=== PATIENT | female | born 1960 | race Caucasian/White ===

== ENCOUNTER 2016-09-08 08:35 | Emergency (ER) | payer OTHER ==
[~2016-09-08] VITALS: Ht 160 cm; Wt 80.0 kg
[2016-09-08 08:35] VITALS: Ht 160 cm; Wt 80.0 kg
[2016-09-08] MEDS ORDERED: HYDROmorphONE 1 MG/ML SYG IV STA (08:56)
[2016-09-08] MEDS ORDERED: ONDANSETRON 4 MG INJ IV STA (08:56)
[2016-09-08 09:11] LABS: ADD SCAN DIFF NO
[2016-09-08 09:19] LABS: BASOPHILS % 0.2 % (0.0-2.0); EOSINOPHILS % 0.1 % (0.0-7.0); HEMATOCRIT 39.3 % (37.0-47.0); HEMOGLOBIN 12.1 g/dl (12.0-16.0); LYMPHOCYTES # 0.8 10^3/ul (0.8-2.9); LYMPHOCYTES % 7.2 % (15.0-51.0); MEAN CORPUSCULAR HEMOGLOBIN 24.9 pg (29.0-33.0); MEAN CORPUSCULAR HGB CONC 30.8 g/dl (32.0-37.0); MEAN PLATELET VOLUME 11.6 fl (7.4-10.4); MONOCYTE # 0.8 10^3/ul (0.3-0.9); MONOCYTES % 7.1 % (0.0-11.0); NEUTROPHIL # 9.2 10^3/ul (1.6-7.5); NEUTROPHILS % 85.1 % (39.0-77.0); PLATELET COUNT 355 10^3/UL (140-415); RED BLOOD COUNT 4.85 10^6/ul (4.20-5.40); RED CELL DISTRIBUTION WIDTH 14.7 % (11.5-14.5); WHITE BLOOD COUNT 10.8 10^3/ul (4.8-10.8)
[2016-09-08 09:37] LABS: ANION GAP 17 (8-16); CALCIUM 9.7 mg/dl (8.4-10.2); CARBON DIOXIDE 22 mmol/L (21-31); CHLORIDE 108 mmol/L (97-110); GLUCOSE 96 mg/dl (70-220); POTASSIUM 4.2 mmol/L (3.5-5.1); SODIUM 143 mmol/L (135-144)
[2016-09-08] MEDS ORDERED: IOHEXOL 350MG/ML 50 ML BTL ONE (10:01)
[2016-09-08] MEDS ORDERED: SOD CHLORIDE 0.9% 100 ML ONE (10:01)
[2016-09-08] MEDS ORDERED: IOHEXOL 100 ML ONE (10:01)
[2016-09-08 10:02] LABS: BLOOD UREA NITROGEN 17 mg/dl (7-20)
[2016-09-08 10:03] LABS: TROPONIN-I < 0.012 ng/ml (0.00-0.12)
--- NOTE | 2016-09-08 10:28 | RADRPT ---
PROCEDURE: CTA Chest with contrast and with 3-D reconstructions CLINICAL INDICATION: SOB, painful inspiration, left chest pain TECHNIQUE: The study was performed utilizing multidetector CT scanner. Direct spiral axial section s were obtained from the thoracic inlet to the upper abdomen with the use of intravenous contrast ma terial. Sagittal, coronal and 3-D reformations were obtained. The images were reviewed on a PACS wor kstation. DLP 665.24 mGycm CTDIvol 28.17, 18.53 mGy COMPARISON: No prior studies are available for comparison. FINDINGS: There are no pulmonary emboli. There are no focal consolidations. There is mild pulmonary vascular congestion. There is no pleural fluid. There is no pneumothorax. Heart size is within normal limits. There is no pericardial fluid. The aorta is within normal limi ts. There are no enlarged axillary or mediastinal lymph nodes. There is cholelithiasis as well as mild upper abdominal ascites. Osseous and soft tissue structures are within normal limits. IMPRESSION: No CT evidence for pulmonary embolus. Mild pulmonary vascular congestion. RPTAT: EE Physician Pili Date Time Electronically viewed and signed by Physician Pili on 09/08/2016 10:28 RUTHY
[2016-09-08] MEDS ORDERED: HYDR-902 PO (12:16)
[2016-09-08] MEDS ORDERED: IBUP-1542 PO (12:16)
[2016-09-08] MEDS ORDERED: FUROSEMIDE 40 MG INJ IV ONE (12:30)
[2016-09-08 12:32] VITALS: BP 124/85; PULSE 91; RESP 20
--- NOTE | 2016-09-08 12:33 | ERD ---
ER Documentation Chief Complaint Date/Time DATE: 09/08/16 TIME: 12:28 Chief Complaint SHORTNESS OF BREATH; PAIN UPON INSPIRATION ON THE LEFT SIDE OF THE RIB AREA HPI This a 55-year-old female who is here complaining of some sudden sharp pain in her left posterior rib cage with some difficulty breathing. Patient says she was going up some stairs carrying a heavy backpack she felt a sudden pain in her left posterior rib cage just prior to arrival. No chest pain or syncope or dizziness or palpitations. The patient says the pain is sharp with inspiration and it is worse when she moves her trunk. She says she short of breath just because she cannot take a deep breath because it hurts to breathe in. She does not smoke and does not take any hormonal replacement therapy. No leg swelling or dyspnea on exertion or orthopnea. ROS All systems reviewed and are negative except as per history of present illness. Medications Home Meds Active Scripts Hydrocodone/Acetaminophen ([place] 10-325 Tablet) 1 Each Tablet, 1 TAB PO Q6H Y for PAIN, #20 TAB Prov:MANNYOSMERONSTJUDAHS A. DO 09/08/16 Ibuprofen* (Motrin*) 600 Mg Tab, 600 MG PO Q8, #30 TAB Prov:LEKKOS,APOSTOLOS A. DO 09/08/16 Allergies Allergies: Coded Allergies: No Known Allergy (Unverified , 09/08/16) PMhx/Soc History of Surgery: Yes (FOOT SX) Anesthesia Reaction: No Hx Neurological Disorder: No Hx Respiratory Disorders: No Hx Cardiac Disorders: No Hx Psychiatric Problems: No Hx Miscellaneous Medical Probl: Yes (GALLSTONES) Hx Alcohol Use: No Hx Substance Use: No Hx Tobacco Use: No Smoking Status: Former smoker FmHx Family History: No coronary disease Physical Exam Vitals Vital Signs Date Time Temp Pulse Resp B/P Pulse Ox O2 Delivery O2 Flow Rate FiO2 09/08/16 11:31 72 22 111/75 98 09/08/16 10:23 71 22 134/82 98 09/08/16 08:35 98.2 116 25 139/90 98 Physical Exam Const: Well-developed, well-nourished Head: Atraumatic, normocephalic Eyes: Normal Conjunctiva, PERRLA, EOMI, normal sclera, no nystagmus ENT: Normal External Ears, Nose and Mouth, moist mucus membranes. Neck: Full range of motion. No meningismus, no lymphadenopathy. Resp: Clear to auscultation bilaterally, no wheezing, rhonchi, rales Cardio: Regular rate and rhythm, no murmurs, S1 S2 present, there is 100 % reproducible pain in the left posterior rib cage around rib #9. This pain is reproducible to palpation and with twisting of the trunk Abd: Soft, non tender x 4, non distended. Normal bowel sounds, no guarding or rebound, no pulsitile abdominal masses or bruits Skin: No petechiae or rashes, no ecchymosis , no maculopapular rash Back: No midline or flank tenderness Ext: No cyanosis, or edema, FROM x 4, normal inspection, neurovascularly intact x 4 Neur: Awake and alert, STR 5/5 x 4, sensation intact x 4, no focal findings, cerebellum intact Psych: Normal Mood and Affect Result Diagram: 09/08/16 0900 09/08/16 0900 Results 24 hrs Laboratory Tests Test 09/08/16 09:00 White Blood Count 10.810^3/ul Red Blood Count 4.8510^6/ul Hemoglobin 12.1g/dl Hematocrit 39.3% Mean Corpuscular Volume 81.0fl Mean Corpuscular Hemoglobin 24.9pg Mean Corpuscular Hemoglobin Concent 30.8g/dl Red Cell Distribution Width 14.7% Platelet Count 48396^3/UL Mean Platelet Volume 11.6fl Neutrophils % 85.1% Lymphocytes % 7.2% Monocytes % 7.1% Eosinophils % 0.1% Basophils % 0.2% Nucleated Red Blood Cells % 0.0/100WBC Neutrophils # 9.210^3/ul Lymphocytes # 0.810^3/ul Monocytes # 0.810^3/ul Eosinophils # 0.010^3/ul Basophils # 0.010^3/ul Nucleated Red Blood Cells # 0.010^3/ul Sodium Level 143mmol/L Potassium Level 4.2mmol/L Chloride Level 108mmol/L Carbon Dioxide Level 22mmol/L Anion Gap 17 Blood Urea Nitrogen 17mg/dl Creatinine 0.60mg/dl Glucose Level 96mg/dl Calcium Level 9.7mg/dl Troponin I < 0.012ng/ml Current Medications Medications (Trade) Dose Ordered Sig/Jay Route PRN Reason Start Time Stop Time Status Last Admin Dose Admin Hydromorphone HCl (Dilaudid) 1 mg ONCE STAT IV 09/08/16 08:56 09/08/16 08:59 DC 09/08/16 09:10 Ondansetron HCl (Zofran Inj) 4 mg ONCE STAT IV 09/08/16 08:56 09/08/16 08:59 DC 09/08/16 09:10 IV Flush 10 ml 10 ml STK-MED ONCE .ROUTE 09/08/16 10:01 09/08/16 10:02 DC 09/08/16 10:28 Sodium Chloride 100 ml @ ud STK-MED ONCE .ROUTE 09/08/16 10:01 09/08/16 10:02 DC 09/08/16 10:29 Iohexol (Omnipaque) 100 ml @ ud STK-MED ONCE .ROUTE 09/08/16 10:01 09/08/16 10:02 DC 09/08/16 10:29 Iohexol (Omnipaque 350mg/ ml) 50 ml STK-MED ONCE .ROUTE 09/08/16 10:01 09/08/16 10:02 DC 09/08/16 10:31 Furosemide (Lasix) 40 mg ONCE ONCE IV 09/08/16 12:30 09/08/16 12:31 09/08/16 12:16 Procedures/MDM EKG: Rate/Rhythm: Normal Sinus Rhythm,NL intervals QRS, ST, QT: NORMAL [place], QRS, QT] Impression: NORMAL EKG PROCEDURE: CTA Chest with contrast and with 3-D reconstructions CLINICAL INDICATION: SOB, painful inspiration, left chest pain TECHNIQUE: The study was performed utilizing multidetector CT scanner. Direct spiral axial sections were obtained from the thoracic inlet to the upper abdomen with the use of intravenous contrast material. Sagittal, coronal and 3- D reformations were obtained. The images were reviewed on a PACS workstation. DLP 665.24 mGycm CTDIvol 28.17, 18.53 mGy COMPARISON: No prior studies are available for comparison. FINDINGS: There are no pulmonary emboli. There are no focal consolidations. There is mild pulmonary vascular congestion. There is no pleural fluid. There is no pneumothorax. Heart size is within normal limits. There is no pericardial fluid. The aorta is within normal limits. There are no enlarged axillary or mediastinal lymph nodes. There is cholelithiasis as well as mild upper abdominal ascites. Osseous and soft tissue structures are within normal limits. IMPRESSION: No CT evidence for pulmonary embolus. Mild pulmonary vascular congestion. RPTAT: EE Tigre Norris Physician Date Time Electronically viewed and signed by Tigre Norris Physician on 09/08/2016 10:28 RA/ CC: FRANKY WADE DO We will give patient IV Lasix for some slight fluid in the lungs. No evidence of PE. I feel her pain is clearly musculoskeletal in nature she was going up stairs carrying heavy backpack caused some rib displacement or rib strain. Will discharge with Motrin and hydrocodone. The patient will follow up with Dr. Pappas for heart workup for volume overload Departure Diagnosis: Primary Impression: Chest wall pain Additional Impression: CHF (congestive heart failure) Congestive heart failure type: unspecified congestive heart failure type Congestive heart failure chronicity: unspecified congestive heart failure chronicity Qualified Code: I50.9 - Congestive heart failure, unspecified congestive heart failure chronicity, unspecified congestive heart failure type Condition: Stable Patient Instructions: Chest Wall Strain Referrals: AJ PAPPAS APOSTOLOS A. DO Sep 08, 2016 12:32
== END 2016-09-08 12:33 | disposition home or self-care (01) ==
LOC: E/R 08:35
DX: R07.89 Other chest pain (principal); I50.9 Heart failure, unspecified; Z87.891 Personal history of nicotine dependence
CPT/HCPCS: 71275; 80048; 84484; 85025; 93005; J1170; J1940; J2405; Q9967; 36415; 96374; 96375

== ENCOUNTER 2016-11-02 09:01 | Emergency (ER) | payer OTHER ==
[~2016-11-02] VITALS: Ht 165.1 cm; Wt 78.9 kg
[~2016-11-02 09:01] MED LIST: HYDR-902 PO; IBUP-1542 PO
[2016-11-02 09:07] VITALS: Ht 165.1 cm; Wt 78.9 kg
[2016-11-02 09:48] LABS: BASOPHILS % 0.2 % (0.0-2.0); EOSINOPHILS # 0.1 10^3/ul (0.0-0.5); EOSINOPHILS % 1.1 % (0.0-7.0); HEMATOCRIT 37.7 % (37.0-47.0); HEMOGLOBIN 11.3 g/dl (12.0-16.0); LYMPHOCYTES % 12.5 % (15.0-51.0); MEAN CORPUSCULAR HEMOGLOBIN 23.8 pg (29.0-33.0); MEAN CORPUSCULAR VOLUME 79.4 fl (82.0-101.0); MEAN PLATELET VOLUME 11.5 fl (7.4-10.4); MONOCYTES % 12.1 % (0.0-11.0); NEUTROPHILS % 73.7 % (39.0-77.0); PLATELET COUNT 374 10^3/UL (140-415); RED BLOOD COUNT 4.75 10^6/ul (4.20-5.40); RED CELL DISTRIBUTION WIDTH 16.2 % (11.5-14.5); WHITE BLOOD COUNT 8.1 10^3/ul (4.8-10.8)
--- NOTE | 2016-11-02 09:59 | RADRPT ---
PROCEDURE: CT abdomen and pelvis without contrast. CLINICAL INDICATION: Abdominal Pain TECHNIQUE: CT scan of the abdomen and pelvis without contrast was performed and is reconstructed a t 2.5 mm contiguous axial intervals from the dome of the diaphragm to the inferior pubic rami.. The patient was scanned without intravenous contrast. Sagittal and coronal reformatted images were obt ained from the axial source images. The calculated radiation dose measures 950 mGy centimeters. The CTDI measures 16 mGy. COMPARISON: None. FINDINGS: The lung bases are clear of any infiltrate or mass. There is a small to moderate size left pleural effusion. The liver is of normal size, contour and attenuation with no mass or ductal dilatation. There are ga llstones. No splenic, adrenal or pancreatic abnormalities present. Kidneys are of normal size and contour. No hydronephrosis, calculus or masses seen. Ureters are o f normal course and caliber with no stone. No bladder mass or stone is present. There is a large irregular shaped mass arising out of the pelvis containing coarse calcifications. This most likely represents an enlarged uterus with fluid in the canal. Noted is a moderate volume o f ascites with extensive nodularity in the mesenteric fat highly suspicious for peritoneal carcinoma tosis. Findings likely represent evidence of metastatic uterine cancer. The ovaries are not clearl y seen. Ovarian cancer cannot be ruled out. There is no aneurysm. No adenopathy is present. No bowel mass or obstruction is present. The appendix is not clearly visualized, however, no infl stanislav appendix is noted. No pneumoperitoneum is visualized. The osseous structures are intact. IMPRESSION: Large irregular shaped thick-walled pelvic mass with calcifications and central fluid. Ascites with extensive omental caking. Rule out metastatic uterine cancer. Ovarian cancer cannot be ruled out. Cholelithiasis. Left pleural effusion. .Allan Buitrago MD, Date Time Electronically viewed and signed by .Allan Buitrago MD, on 11/02/2016 09:59 .A/
[2016-11-02 10:04] LABS: UR RBC > 182 /HPF (0-5); UR WBC CLUMPS MANY /HPF (NONE SEEN)
[2016-11-02 10:13] LABS: ALBUMIN 4.1 g/dl (3.3-4.9); ALBUMIN/GLOBULIN RATIO 1.13; BILIRUBIN,INDIRECT 0.1 mg/dl (0-1.1); BILIRUBIN,TOTAL 0.1 mg/dl (0.2-1.3); CALCIUM 9.7 mg/dl (8.4-10.2); CREATININE 0.79 mg/dl (0.44-1.00); POTASSIUM 4.9 mmol/L (3.5-5.1); TOTAL PROTEIN 7.7 g/dl (6.1-8.1)
--- NOTE | 2016-11-02 10:33 | ERD ---
ER Documentation Chief Complaint Date/Time DATE: 11/02/16 TIME: 10:28 Chief Complaint dysuria x 2 days HPI This is a 56-year-old female that presents to the ER complaining of constipation over the last few months. Patient states that she struggles to have a bowel movement and she has been taking stool softeners however they have not worked. Patient's last bowel movement was this morning. Patient is also complaining of generalized abdominal pain and she states she is not always able to urinate. Patient states that she has to push very hard to urinate and that it lerner when she urinates. She denies any nausea or vomiting. Denies any diarrhea. Patient denies any hematuria, melena. She denies any fevers or chills. Patient has never had a colonoscopy and does not regularly see a primary care doctor. Patient's son also states that patient has intermittent shortness of breath, however she does not have any shortness of breath at this time she denies any chest pain. She does not have any cough or cold symptoms. ROS 12 point review of systems was done, all negative except per HPI. Medications Home Meds No Active Prescriptions or Reported Meds Allergies Allergies: Coded Allergies: No Known Allergy (Unverified , 11/02/16) PMhx/Soc History of Surgery: Yes (FOOT SX) Anesthesia Reaction: No Hx Neurological Disorder: No Hx Respiratory Disorders: No Hx Cardiac Disorders: No Hx Psychiatric Problems: No Hx Miscellaneous Medical Probl: Yes (GALLSTONES) Hx Alcohol Use: No Hx Substance Use: No Hx Tobacco Use: No Smoking Status: Never smoker Physical Exam Vitals Physical Exam GENERAL: The patient is well developed and appropriate for usual state of health , in no apparent distress. HEENT: Atraumatic. CHEST: Clear to auscultation bilaterally. There are no rales, wheezes or rhonchi. HEART: Regular rate and rhythm. No murmurs, clicks, rubs or gallops. ABDOMEN: Soft, nondistended, tender to palpation in all quadrants. Good bowel sounds. No rebound or guarding. No gross peritonitis. No gross organomegaly or masses. No Preciado sign or McBurney point tenderness. BACK: No midline or flank tenderness. NEURO: Alert and oriented. Results 24 hrs Laboratory Tests Test 11/02/16 09:34 White Blood Count 8.110^3/ul Red Blood Count 4.7510^6/ul Hemoglobin 11.3g/dl Hematocrit 37.7% Mean Corpuscular Volume 79.4fl Mean Corpuscular Hemoglobin 23.8pg Mean Corpuscular Hemoglobin Concent 30.0g/dl Red Cell Distribution Width 16.2% Platelet Count 30821^3/UL Mean Platelet Volume 11.5fl Neutrophils % 73.7% Lymphocytes % 12.5% Monocytes % 12.1% Eosinophils % 1.1% Basophils % 0.2% Nucleated Red Blood Cells % 0.0/100WBC Neutrophils # 6.010^3/ul Lymphocytes # 1.010^3/ul Monocytes # 1.010^3/ul Eosinophils # 0.110^3/ul Basophils # 0.010^3/ul Nucleated Red Blood Cells # 0.010^3/ul Urine Color RED Urine Clarity CLOUDY Urine pH 6.0 Urine Specific [place] 1.027 Urine Ketones TRACEmg/dL Urine Nitrite NEGATIVEmg/dL Urine Bilirubin NEGATIVEmg/dL Urine Urobilinogen NEGATIVEmg/dL Urine Leukocyte Esterase 2+Gillian/ul Urine Microscopic RBC > 182/HPF Urine Microscopic WBC > 182/HPF Urine Squamous Epithelial Cells /HPF Urine Calcium Oxalate Crystals FEW/HPF Urine Mucus /HPF Urine Hemoglobin 3+mg/dL Urine Glucose 1+mg/dL Urine Total Protein 3+mg/dl Sodium Level 146mmol/L Potassium Level 4.9mmol/L Chloride Level 102mmol/L Carbon Dioxide Level 27mmol/L Anion Gap 22 Blood Urea Nitrogen 14mg/dl Creatinine 0.79mg/dl Glucose Level 88mg/dl Calcium Level 9.7mg/dl Total Bilirubin 0.1mg/dl Direct Bilirubin 0.00mg/dl Indirect Bilirubin 0.1mg/dl Aspartate Amino Transf (AST/SGOT) 55IU/L Alanine Aminotransferase (ALT/SGPT) 96IU/L Alkaline Phosphatase 92IU/L Total Protein 7.7g/dl Albumin 4.1g/dl Globulin 3.60g/dl Albumin/Globulin Ratio 1.13 Lipase 26U/L [place] [id number] Radiology Main Line: [phone] DIAGNOSTIC IMAGING REPORT Patient: LUISANA JOVEL : 1960 Age: 56 Sex: F MR #: [id number] DOS: 11/02/16 0922 Ordering MD: LUISANA DENNEY PA-C Location: [facility] Room/Bed: PROCEDURE: CT abdomen and pelvis without contrast. CLINICAL INDICATION: Abdominal Pain TECHNIQUE: CT scan of the abdomen and pelvis without contrast was performed and is reconstructed at 2.5 mm contiguous axial intervals from the dome of the diaphragm to the inferior pubic rami.. The patient was scanned without intravenous contrast. Sagittal and coronal reformatted images were obtained from the axial source images. The calculated radiation dose measures 950 mGy centimeters. The CTDI measures 16 mGy. COMPARISON: None. FINDINGS: The lung bases are clear of any infiltrate or mass. There is a small to moderate size left pleural effusion. The liver is of normal size, contour and attenuation with no mass or ductal dilatation. There are gallstones. No splenic, adrenal or pancreatic abnormalities present. Kidneys are of normal size and contour. No hydronephrosis, calculus or masses seen. Ureters are of normal course and caliber with no stone. No bladder mass or stone is present. There is a large irregular shaped mass arising out of the pelvis containing coarse calcifications. This most likely represents an enlarged uterus with fluid in the canal. Noted is a moderate volume of ascites with extensive nodularity in the mesenteric fat highly suspicious for peritoneal carcinomatosis. Findings likely represent evidence of metastatic uterine cancer. The ovaries are not clearly seen. Ovarian cancer cannot be ruled out. There is no aneurysm. No adenopathy is present. No bowel mass or obstruction is present. The appendix is not clearly visualized, however, no inflamed appendix is noted. No pneumoperitoneum is visualized. The osseous structures are intact. IMPRESSION: Large irregular shaped thick-walled pelvic mass with calcifications and central fluid. Ascites with extensive omental caking. Rule out metastatic uterine cancer. Ovarian cancer cannot be ruled out. Cholelithiasis. Left pleural effusion. .Allan Buitrago MD, MD Date Time Electronically viewed and signed by .Allan Buitrago MD, MD on 11/02/2016 09: 59 .A/ CC: LUISANA DENNEY Procedures/MDM This is a 56-year-old female presents to the ER stating that she has had constipation and urinary retention and dysuria over the last few months. Patient also complaining of generalized abdominal pain. Patient was found to have a new mass on CT scan and would benefit from admission. Patient will be transferred to another hospital for further management and care. Departure Diagnosis: Primary Impression: Pelvic mass Condition: Stable LUISANA DENNEY Nov 02, 2016 10:32 .A/ CC: LUISANA DENNEY Procedures/MDM This is a 56-year-old female presents to the ER stating that she has had constipation and urinary retention and dysuria over the last few months. Patient also complaining of generalized abdominal pain. Departure Diagnosis: Primary Impression: Pelvic mass Condition: LUISANA Rodriguez Nov 02, 2016 10:32
--- NOTE | 2016-11-02 11:56 | RADRPT ---
PROCEDURE: US Pelvis. CLINICAL INDICATION: Pelvic pain. Pelvic mass. TECHNIQUE: Multiple sonographic images of the pelvis were obtained utilizing a transabdominal and endovaginal technique. The images were reviewed on a PACS workstation. COMPARISON: CT of the abdomen and pelvis from 11/02/2016 FINDINGS: Exam is limited in technique. The uterus is visualized and measures 11.7 x 6.5 x 7.7 cm in size. Th e uterus is enlarged and heterogeneous in echogenicity. The cystic structure is seen in the uterus measuring 3.2 x 2.6 feet and 0.4 cm in size. The endometrial echo complex is not well visualized. Th ere is no evidence for free fluid. The right ovary is not well visualized. The left ovary has a nor mal echotexture and measures 3.8 x 2.6 x 2.9 cm. No adnexal masses are noted. IMPRESSION: 1. Limited examination secondary to technique. 2. Enlarged and heterogeneous uterus. Consider further evaluation with an MRI of the pelvis as cli nically warranted. 3. Right ovary not visualized. RPTAT: HPNM Physician Rufino Date Time Electronically viewed and signed by Physician Rufino on 11/02/2016 11:56 /
[2016-11-02 12:22] LABS: ADD UMIC YES; UR ASCORBIC ACID NEGATIVE (NEGATIVE); UR BILIRUBIN (Dip) NEGATIVE (NEGATIVE); UR BLOOD (Dip) 3+ mg/dL (NEGATIVE); UR CLARITY CLOUDY (CLEAR); UR COLOR RED (YELLOW); UR GLUCOSE (Dip) 1+ mg/dL (NEGATIVE); UR KETONES (Dip) TRACE mg/dL (NEGATIVE); UR LEUKOCYTE ESTERASE (Dip) 2+ Leu/ul (NEGATIVE); UR NITRITE (Dip) NEGATIVE (NEGATIVE); UR SPECIFIC GRAVITY (Dip) 1.027 (1.003-1.030); UR TOTAL PROTEIN (Dip) 3+ mg/dl (NEGATIVE); UR UROBILINOGEN (Dip) NEGATIVE (NEGATIVE)
[2016-11-02 14:00] VITALS: BP 128/77; RESP 18; TEMP 98.9
[2016-11-02 14:17] VITALS: PULSE 98
== END 2016-11-02 14:42 | disposition short-term general hospital (02) ==
LOC: FTE 09:01
DX: R19.07 Generalized intra-abdominal and pelvic swelling, mass and lump (principal); R10.2 Pelvic and perineal pain
CPT/HCPCS: 36415; 74176; 76830; 76856; 80053; 81001; 83690; 85025

== ENCOUNTER 2017-01-22 11:05 | Inpatient (IN) | payer OTHER ==
[~2017-01-22] VITALS: Ht 160 cm; Wt 66.2 kg
[2017-01-22] MEDS ORDERED: SODIUM CHLORIDE 0.9% 1L BAG IV* STA (11:57)
[2017-01-22] MEDS ORDERED: ONDANSETRON 4 MG INJ IV STA ×2 (11:57→17:42)
[2017-01-22] MEDS ORDERED: morphine 4 MG/ML VIAL IV STA (11:57)
--- NOTE | 2017-01-22 12:06 | ERD ---
ER Documentation Chief Complaint Chief Complaint SOB HAS HX OF OVARIAN CA AND HAS MULTI COMPLAINTS HPI This is a 56-year-old female with an unfortunate history of recent diagnosis of likely metastatic ovarian CA. No initiation of chemo or radiation therapy. Diagnosis was made 2 months ago. She presents with multiple complaints that includes chest pain that is pressure-like and nonradiating but constant, abdominal pain with associated nonbloody nonbilious emesis and difficulty urinating. She denies any fevers or chills, no pleuritic pain. She describes the discomfort diffusely is approximately 5 out of 10. ROS All systems reviewed and are negative except as per history of present illness. Medications Home Meds No Active Prescriptions or Reported Meds Allergies Allergies: Coded Allergies: No Known Allergy (Unverified , 11/02/16) PMhx/Soc History of Surgery: Yes (FOOT SX) Anesthesia Reaction: No Hx Neurological Disorder: No Hx Respiratory Disorders: No Hx Cardiac Disorders: No Hx Psychiatric Problems: No Hx Miscellaneous Medical Probl: Yes (GALLSTONES) Hx Alcohol Use: No Hx Substance Use: No Hx Tobacco Use: No FmHx Family History: No diabetes Physical Exam Vitals Vital Signs Date Time Temp Pulse Resp B/P Pulse Ox O2 Delivery O2 Flow Rate FiO2 01/22/17 13:32 98.6 107 18 132/81 98 Nasal Cannula 3.0 01/22/17 12:00 Nasal Cannula 3 01/22/17 11:10 97.2 120 18 145/69 97 Physical Exam General: Ill-appearing and malnourished with anasarca Head: Normocephalic, atraumatic. Eyes: Pupils equally reactive, EOM intact ENT: Dry mucous membranes Neck: Supple, no lymphadenopathy Respiratory: Lungs clear bilaterally, no distress Cardiovascular: RRR, no murmurs, rubs, or gallops Abdominal: Protuberant and firm, no peritonitis : Deferred MSK: No edema, no unilateral swelling, 5/5 strength Neurologic: Alert and oriented, moving all extremities, normal speech, no focal weakness, no cerebellar signs Skin: No rash Psych: Normal mood Result Diagram: 01/22/17 1215 01/22/17 1215 Results 24 hrs Laboratory Tests Test 01/22/17 12:15 White Blood Count 11.510^3/ul Red Blood Count 4.4010^6/ul Hemoglobin 10.3g/dl Hematocrit 34.2% Mean Corpuscular Volume 77.7fl Mean Corpuscular Hemoglobin 23.4pg Mean Corpuscular Hemoglobin Concent 30.1g/dl Red Cell Distribution Width 17.6% Platelet Count 03108^3/UL Mean Platelet Volume 11.1fl Neutrophils % 89.2% Lymphocytes % 4.9% Monocytes % 5.1% Eosinophils % 0.1% Basophils % 0.2% Nucleated Red Blood Cells % 0.0/100WBC Neutrophils # 10.210^3/ul Lymphocytes # 0.610^3/ul Monocytes # 0.610^3/ul Eosinophils # 0.010^3/ul Basophils # 0.010^3/ul Nucleated Red Blood Cells # 0.010^3/ul Urine Color YELLOW Urine Clarity SLIGHTLY CLOUDY Urine pH 6.0 Urine Specific [place] 1.020 Urine Ketones TRACEmg/dL Urine Nitrite NEGATIVEmg/dL Urine Bilirubin NEGATIVEmg/dL Urine Urobilinogen NEGATIVEmg/dL Urine Leukocyte Esterase 1+Gillian/ul Urine Microscopic RBC 3/HPF Urine Microscopic WBC 53/HPF Urine Bacteria FEW/HPF Urine Mucus FEW/HPF Urine Hemoglobin NEGATIVEmg/dL Urine Glucose NEGATIVEmg/dL Urine Total Protein NEGATIVEmg/dl Sodium Level 145mmol/L Potassium Level 4.8mmol/L Chloride Level 106mmol/L Carbon Dioxide Level 24mmol/L Anion Gap 20 Blood Urea Nitrogen 18mg/dl Creatinine 0.73mg/dl Glucose Level 98mg/dl Lactic Acid Level 1.6mmol/L Calcium Level 9.9mg/dl Total Bilirubin 0.2mg/dl Direct Bilirubin 0.00mg/dl Indirect Bilirubin 0.2mg/dl Aspartate Amino Transf (AST/SGOT) 42IU/L Alanine Aminotransferase (ALT/SGPT) 34IU/L Alkaline Phosphatase 103IU/L Troponin I < 0.012ng/ml Total Protein 8.5g/dl Albumin 4.2g/dl Globulin 4.30g/dl Albumin/Globulin Ratio 0.97 Current Medications Medications (Trade) Dose Ordered Sig/Jay Route PRN Reason Start Time Stop Time Status Last Admin Dose Admin Sodium Chloride (NS) 2,140 ml BOLUS OVER 2 HOURS STAT IV* 01/22/17 11:57 01/22/17 11:59 DC 01/22/17 12:34 Morphine Sulfate (morphine) 4 mg ONCE STAT IV 01/22/17 11:57 01/22/17 11:59 DC 01/22/17 12:34 Ondansetron HCl (Zofran Inj) 4 mg ONCE STAT IV 01/22/17 11:57 01/22/17 11:59 DC 01/22/17 12:34 Hydromorphone HCl 1 mg 1 mg ONCE STAT IV 01/22/17 12:37 01/22/17 12:38 DC 01/22/17 12:55 Ceftriaxone Sodium (Rocephin) 50 ml @ 100 mls/hr ONCE ONCE IVPB 01/22/17 14:00 01/22/17 14:29 Hydromorphone HCl (Dilaudid) 1 mg ONCE STAT IV 01/22/17 13:54 01/22/17 13:55 DC Procedures/MDM EKG, MONITORS, & DIAGNOSTIC IMAGING: EKG: I reviewed and interpreted a 12-lead EKG. Rhythm: Normal sinus rhythm Ectopy: None Intervals: No abnormalities ST segments: No elevations or depressions T waves: No contiguous inversions Chest x-ray: I reviewed and interpreted a 1 view of the chest Mediastinum: No enlargement Cardiac silhouette: No cardiomegaly Airspace: Clear lung raya bilaterally without evidence of pneumothorax Bones: No evidence of fracture CTPA: Pending CT abdomen and pelvis: Pending LAB INTERPRETATION: No significant leukocytosis is noted., Mild anemia of 10.3, platelets of 509, normal lactic acid, negative troponin urinalysis concerning for UTI MEDICAL DECISION MAKING: This patient has clear evidence of metastatic ovarian CVA. Her multiple complaints including chest pain and abdominal pain. Differential would include pulmonary embolism, diffuse metastatic or worsening process, bowel obstruction among others. Given her complex medical presentation a broad workup including CT PA and CT of the abdomen and pelvis is indicated. She will benefit from fluid resuscitation and pain control. She will certainly require hospitalization. This is concerning for end-stage malignancy, palliative and hospice care consultations may be appropriate as well. ER COURSE: The patient has evidence of urinary tract infection. Blood cultures taken, 30 cc/kg bolus of saline provided. Ceftriaxone provided. Only 1 out of 4 Sirs criteria is met in the emergency department therefore patient does not meet criteria for sepsis at this time. The patient CT chest and abdomen and pelvis are pending at this time. The patient's pain is being controlled with multiple doses of Dilaudid. Her heart rate is improving. She is hemodynamically stable. She will require hospitalization given multitude of complaints and issues including chest pain. The patient CT imaging is pending at the time of signout. She was endorsed to Dr. Dockery to follow-up on imaging. The admitting team was also advised of pending imaging studies and will follow. I kept the patient and/or family informed of laboratory and diagnostic imaging results throughout the emergency room course. DISPOSITION PLAN: Telemetry admission for management of chest pain CONSULTATION: Accepting care team and consultations: I discussed the current laboratory data, diagnostic imaging and emergency care provided. Admitting team: Dr. Randhawa Admitting team indication: Insurance directed Departure Diagnosis: Primary Impression: Primary cancer of ovary with widespread metastatic disease Laterality: unspecified laterality Qualified Code: C56.9 - Primary malignant neoplasm of ovary with widespread metastatic disease, unspecified laterality Additional Impressions: Chest pain Chest pain type: unspecified Qualified Code: R07.9 - Chest pain, unspecified type Shortness of breath Generalized abdominal pain Urinary tract infection Urinary tract infection type: acute cystitis Hematuria presence: without hematuria Qualified Code: N30.00 - Acute cystitis without hematuria Condition: YULIYA Chapman MD Jan 22, 2017 12:06
[2017-01-22] MEDS ORDERED: HYDROmorphONE 1 MG/ML SYG IV STA ×3 (12:37→17:42)
--- NOTE | 2017-01-22 12:48 | RADRPT ---
PROCEDURE: Chest x-ray CLINICAL INDICATION: Shortness of breath TECHNIQUE: Chest single view COMPARISON: None FINDINGS: The heart is normal in size. The pulmonary vessels are normal in caliber. The lungs are clear. Th e costophrenic angles are sharp. The visualized bony thorax is unremarkable. IMPRESSION: No acute cardiopulmonary disease. RPTAT: HH .Adilson Mike MD, Date Time Electronically viewed and signed by .Adilson Mike MD, MD on 01/22/2017 12:48 .W/
[2017-01-22 12:58] LABS: ABNORMAL IP MESSAGE 1; BASOPHILS % 0.2 % (0.0-2.0); EOSINOPHILS % 0.1 % (0.0-7.0); HEMATOCRIT 34.2 % (37.0-47.0); HEMOGLOBIN 10.3 g/dl (12.0-16.0); LYMPHOCYTES # 0.6 10^3/ul (0.8-2.9); LYMPHOCYTES % 4.9 % (15.0-51.0); MEAN CORPUSCULAR HEMOGLOBIN 23.4 pg (29.0-33.0); MEAN CORPUSCULAR HGB CONC 30.1 g/dl (32.0-37.0); MEAN CORPUSCULAR VOLUME 77.7 fl (82.0-101.0); MEAN PLATELET VOLUME 11.1 fl (7.4-10.4); MONOCYTE # 0.6 10^3/ul (0.3-0.9); MONOCYTES % 5.1 % (0.0-11.0); NEUTROPHIL # 10.2 10^3/ul (1.6-7.5); NEUTROPHILS % 89.2 % (39.0-77.0); PLATELET COUNT 509 10^3/UL (140-415); RED CELL DISTRIBUTION WIDTH 17.6 % (11.5-14.5); WHITE BLOOD COUNT 11.5 10^3/ul (4.8-10.8)
[2017-01-22 12:59] LABS: POSITIVE DIFF @See below
[2017-01-22 13:12] LABS: ADD UMIC YES; UR ASCORBIC ACID NEGATIVE (NEGATIVE); UR BACTERIA FEW /HPF (NONE SEEN); UR BILIRUBIN (Dip) NEGATIVE (NEGATIVE); UR BLOOD (Dip) NEGATIVE (NEGATIVE); UR CLARITY SLIGHTLY CLOUDY (CLEAR); UR COLOR YELLOW (YELLOW); UR GLUCOSE (Dip) NEGATIVE (NEGATIVE); UR KETONES (Dip) TRACE mg/dL (NEGATIVE); UR LEUKOCYTE ESTERASE (Dip) 1+ Leu/ul (NEGATIVE); UR MUCUS FEW /HPF (NONE SEEN); UR NITRITE (Dip) NEGATIVE (NEGATIVE); UR RBC 3 /HPF (0-5); UR TOTAL PROTEIN (Dip) NEGATIVE (NEGATIVE); UR UROBILINOGEN (Dip) NEGATIVE (NEGATIVE)
[2017-01-22 13:27] LABS: ALANINE AMINOTRANSFERASE 34 IU/L (13-69); ALBUMIN 4.2 g/dl (3.3-4.9); ALBUMIN/GLOBULIN RATIO 0.97; ALKALINE PHOSPHATASE 103 IU/L (42-121); ANION GAP 20 (8-16); ASPARTATE AMINO TRANSFERASE 42 IU/L (15-46); BILIRUBIN,INDIRECT 0.2 mg/dl (0-1.1); BILIRUBIN,TOTAL 0.2 mg/dl (0.2-1.3); BLOOD UREA NITROGEN 18 mg/dl (7-20); CALCIUM 9.9 mg/dl (8.4-10.2); CARBON DIOXIDE 24 mmol/L (21-31); CHLORIDE 106 mmol/L (97-110); CREATININE 0.73 mg/dl (0.44-1.00); GLUCOSE 98 mg/dl (70-220); POTASSIUM 4.8 mmol/L (3.5-5.1); SODIUM 145 mmol/L (135-144); TOTAL PROTEIN 8.5 g/dl (6.1-8.1)
[2017-01-22 13:39] LABS: TROPONIN-I < 0.012 ng/ml (0.00-0.12)
[2017-01-22] MEDS ORDERED: CEFTRIAXONE 1 GM/50 ML (PMX) 50 ML IVPB ONE (14:00)
[2017-01-22 14:11] LABS: INR 0.86; PROTIME 11.7 Sec (12.2-14.2); PT RATIO 0.9
[2017-01-22 14:12] LABS: PARTIAL THROMBOPLASTIN TIME 24.3 Sec (25.0-35.0)
[2017-01-22] MEDS ORDERED: ACETAMINOPHEN 325 MG TAB PO PRN (14:30)
[2017-01-22] MEDS ORDERED: ONDANSETRON 4 MG INJ IV PRN ×2 (14:30→16:00)
[2017-01-22] MEDS ORDERED: IOHEXOL 100 ML ONE (14:41)
[2017-01-22] MEDS ORDERED: SOD CHLORIDE 0.9% 100 ML ONE (14:41)
[2017-01-22] MEDS ORDERED: IOHEXOL 350MG/ML 50 ML BTL ONE (14:41)
--- NOTE | 2017-01-22 15:23 | RADRPT ---
PROCEDURE: CTA Chest with contrast and with 3-D reconstructions CLINICAL INDICATION: Pulmonary embolism, chest pain, shortness of breath, sepsis TECHNIQUE: The study was performed utilizing multidetector CT scanner. Direct spiral axial section s were obtained from the thoracic inlet to the upper abdomen with the use of intravenous contrast ma terial (115 cc of Omnipaque 350). Sagittal, coronal and 3-D reformations were obtained. The images w ere reviewed on a PACS workstation. DLP 1442.79 mGycm CTDIvol 2.82, 16.90, 16.13, 13.84 mGy One or more of the following dose reduction techniques were used: - Automated exposure control. - Adjustment of the mA and/or kV according to patient size. - Use of iterative reconstruction technique. COMPARISON: CT abdomen/pelvis from the same date FINDINGS: There are no pulmonary emboli. There is moderate pulmonary vascular congestion. There is mild left pleural effusion. There is no p neumothorax. Heart size is within normal limits. There is no pericardial fluid. The aorta is within normal limi ts. There are no enlarged axillary or mediastinal lymph nodes. Large volume ascites is identified in the visualized upper abdomen as well as prominent peritoneal t hickening, cholelithiasis, and partially visualized at least moderate right hydronephrosis. Osseous and soft tissue structures are within normal limits. IMPRESSION: No CT evidence for pulmonary embolus. Moderate pulmonary vascular congestion with a small left pleural effusion. Large volume ascites in the visualized upper abdomen as well as cholelithiasis, peroneal thickening, and at least moderate right hydronephrosis. These are better characterized on the CT abdomen/pelvis study from the same date. Please see the report for that study for additional findings. RPTAT: EE Physician Pili Date Time Electronically viewed and signed by Physician Pili on 01/22/2017 15:23 /
--- NOTE | 2017-01-22 15:48 | HP ---
Date/Time of Note Date/Time of Note DATE: 01/22/17 TIME: 15:44 Assessment/Plan VTE Prophylaxis VTE Prophylaxis Intervention: SCD's Assessment/Plan Assessment/Plan 56 yo F with known stage 4 ovarian Ca here with abd pain from ascites which are most likely malignant in origin PLAN paracentesis ordered, along with cytology pain control if feeling well in AM, can consider discharging and letting pt f/u with Dr Donis though pt meets SIRS criteria (WBCs minimally elevated, is tachycardic), I suspect this most likely is the cause of her systemic inflammatory response therefore I am not inclined to continue abx FULL CODE (affirmed with patient and son) of note, personally dw pt's oncologist Dr Donis regarding this admission HPI/ROS Admit Date/Time Admit Date/Time Hx of Present Illness CC abd pain HPI 56 yo F with known stage 4 ovarian ca with omental mets here with abd pain. Pt diagnosed with ovarian Ca just a few mos ago. Has seen an oncologist (Dr Donis in [place]) but has not yet had biopsy/tissue diagnosis made to start therapy. Pt has had ascites since her diagnosis, last week Dr Donis was in the process of trying to set patient up for diagnostic and therapeutic para but that has not yet occurred. Eventually the abd pain from the ascites became so great that pt and her son presented to the ER. Pt also reports constipation. PMH/Family/Social Past Medical History stage 4 ovarian Ca Social History Smoking Status: Former smoker Exam/Review of Systems Vital Signs Vitals Vital Signs Date Time Temp Pulse Resp B/P Pulse Ox O2 Delivery O2 Flow Rate FiO2 01/22/17 14:50 Nasal Cannula 2.0 01/22/17 13:32 98.6 107 18 132/81 98 Exam Exam +temporal wasting EOMI MMM +tachy, no mrg lungs clear +large ascities no rashes no edema labs reviewed, WBCs minimally elevated. no PE. +ascites Labs Result Diagram: 01/22/17 1215 01/22/17 1215 DAYANARA BROWN MD Jan 22, 2017 15:48
[2017-01-22] MEDS ORDERED: NACL 0.9% 3 ML SYG IV SCH (16:00)
[2017-01-22] MEDS ORDERED: DOCUSATE SODIUM 100 MG CAP PO PRN (16:00)
[2017-01-22] MEDS ORDERED: ONDANSETRON 4 MG TAB PO PRN (16:00)
--- NOTE | 2017-01-22 16:15 | RADRPT ---
AMENDMENT: 01/22/2017 4:16:36 PM Lucas Echols MD PROCEDURE: CT Abdomen and Pelvis with Contrast CLINICAL INDICATION: Back and flank pain, possible sepsis TECHNIQUE: Transaxial images were obtained through the abdomen and pelvis on a multi-slice scanner following the intravenous administration of contrast. Oral contrast had previously been given. Sagi ttal and coronal re-formations were subsequently reconstructed. One or more of the following dose reduction techniques were used: - Automated exposure control. - Adjustment of the mA and/or kV according to patient size. - Use of iterative reconstruction technique. Radiation dose: CTDIvol = 30.74 mGy; DLP = 188.79 mGy-cm. COMPARISON: 11/02/2016 FINDINGS: Lung bases: There is again a moderate-sized gravitating left pleural fluid accumulation at measures 12 HU. Discoid atelectasis is again seen at the posterior sulci. Liver: The liver remains normal in size. There is been interval development of a subcapsular fluid c ollection measuring 4.5 x 3.6 x 3.1 cm located at the inferior medial tip of the cough on lobe that measures 36 HU. The liver appears diffusely fatty infiltrated. Gallbladder: The gallbladder wall remains quite edematous and a 2 cm gallstone is evident. Bile ducts: The intra and extrahepatic bile ducts are normal in caliber. Pancreas: Appears normal with no mass or inflammation evident. Spleen: Normal in size with no focal lesion. Adrenals: Normal with no mass identified. Kidneys, ureters and bladder: A 6 mm cyst is seen at the lateral mid pole right kidney. A 3 mm cyst is seen at the superior pole. There is moderately severe right hydronephrosis and hydroureter seen t o the pelvis. No ureterolith is evident. On the left, there is mild pelvocaliectasis without uretera l dilatation evident. The bladder is quite distended with urine. Reproductive organs: There is a large heterogeneous mass located posterior to the bladder containing cystic areas as well as clusters of calcification and segments of bowel air appear represent colon. This measures approximate 20 cm in cranial caudad dimension and approximately 15 x 9 cm in maximum cross diameter. Stomach, bowel, and mesentery: The stomach appears unremarkable. The bowel is centralized secondary to a large amount of free intraperitoneal fluid. There is omental caking suspicious for carcinomatos is. Appendix: The vermiform appendix is not discretely identified. Peritoneum: There is a large amount of free intraperitoneal fluid that measures 25 HU suspicious for a malignant fluid. Aorta: Normal in caliber with no aneurysmal dilatation. IVC: Unremarkable. Lymph nodes: No pathologically enlarged nodes are identified. Osseous structures: The osseous elements appear intact. IMPRESSION: 1. When compared to the previous study of 11/02/2016, there is again a large conglomerate pelvic ma ss inseparable from the uterus, sigmoid colon and rectum containing clumps of calcification suspicio us for calcified fibroids and containing cystic areas. Ovarian and less likely uterine neoplasm kathryn ot be excluded. 2. Large amount of free intraperitoneal fluid measuring 25 HU with caking of the omentum compatible with carcinomatosis. This may be ovarian in etiology. 3. Centralization of bowel without evidence of bowel obstruction. 4. Moderately severe right hydronephrosis and hydroureter to the level of the pelvic mass. There is moderate left pelvocaliectasis without ureteral dilatation. The bladder is quite distended with uri ne. 5. Interval development of a 4.5 x 3.6 x 3.1 cm subcapsular hypodensity within the inferior medial posterior segment of the right lobe of the liver which measures 36 HU. This could represent necrotic tumor or possibly abscess. The liver is fatty infiltrated. 6. Gallbladder wall edema and suspicion of a 2 cm gallstone which could be confirmed sonographicall y. No bile duct dilatation is evident. 7. Persistent moderate gravitating left pleural fluid accumulation with discoid atelectasis seen in the posterior sulci. Physician Dorothy Date Time Electronically viewed and signed by Physician Dorothy on 01/22/2017 16:18 /
[2017-01-22] MEDS ORDERED: ASPIRIN 81 MG TAB PO ONE (16:30)
[2017-01-22] MEDS ORDERED: LIDOCAINE 1% (MPF) 5 ML VIAL ONE (17:21)
--- NOTE | 2017-01-22 17:49 | RADRPT ---
PROCEDURE: US renal. CLINICAL INDICATION: Hydronephrosis. TECHNIQUE: Acuna scale and color Doppler imaging of the kidneys and bladder. COMPARISON: CT dated 01/22/2017. FINDINGS: Right kidney: 10.4 cm in length. Normal in echogenicity. Severe hydronephrosis with no nephrolithia sis or renal mass. Left kidney: 12.0 cm in length. Normal in echogenicity. No nephrolithiasis, hydronephrosis, or iman l mass. Bladder: Distended and unremarkable. Other findings: Large, heterogeneous mass posterior to the urinary bladder with trace ascites. The s pleen is at the upper limits of normal in size measuring 13.4 cm in length. IMPRESSION: 1. Severe right-sided hydronephrosis, not significantly changed from the recent CT scan. No left-si ded hydronephrosis. 2. Large, heterogeneous mass posterior to the urinary bladder. Correlate with recent CT scan result s. 3. Borderline splenomegaly. 4. Trace ascites. RPTAT: HLBP .Elton Pantoja MD, MD Date Time Electronically viewed and signed by .Elton Pantoja MD, MD on 01/22/2017 17:48 .P/
--- NOTE | 2017-01-22 18:13 | RADRPT ---
PROCEDURE: US guided paracentesis CLINICAL INDICATION: Ascites TECHNIQUE: Multiple sonographic images were obtained through the patient's abdomen. A site in the patient's RIGHT lower abdomen was selected and marked. The area was prepped and draped in the usual sterile fashion. 1% lidocaine was utilized. A 19-gauge Yueh needle was advanced into the peritonea l space and the introducer was connected to a vacuum drainage bottle. A total of 4000 cc of bloody fluid were drained at the end of the procedure. The patient tolerated the procedure well. The specim en was sent for laboratory evaluation. COMPARISON: None FINDINGS: Ascites. RPTAT: AA IMPRESSION: Successful paracentesis. .Artemio Estes MD, MD Date Time Electronically viewed and signed by .Artemio Estes MD, MD on 01/22/2017 18:13 .S/
[2017-01-22 19:32] VITALS: TEMP 100.7
[2017-01-22] MEDS: ACETAMINOPHEN 325 MG TAB PO PRN (19:39)
[2017-01-22 19:59] LABS: FLD CLARITY BLOODY; FLD COLOR RED; FLD RBC 257 /uL; FLD WBC 1995 /cmm
[2017-01-22 20:00] LABS: FLD MN% 95.2 %; FLD PMN% 4.8 %
[2017-01-22 20:01] LABS: PATH REVIEW? YES-PATH TO CONFIRM
[2017-01-22 20:55] VITALS: PULSE 135
[2017-01-22 21:01] VITALS: Ht 160 cm; Wt 66.2 kg
[2017-01-22] MEDS ORDERED: METOPROLOL 5 MG INJ IV ONE (22:30)
[2017-01-23] VITALS (11 sets, daily range): BP systolic 89–115; BP diastolic 50–99; PULSE 101–116; RESP 16–18
[2017-01-23 08:52] LABS: ABNORMAL IP MESSAGE 1; HEMOGLOBIN 8.3 g/dl (12.0-16.0); MEAN CORPUSCULAR HGB CONC 29.6 g/dl (32.0-37.0); MEAN CORPUSCULAR VOLUME 77.6 fl (82.0-101.0); MEAN PLATELET VOLUME 11.8 fl (7.4-10.4); PLATELET COUNT 369 10^3/UL (140-415); RED BLOOD COUNT 3.61 10^6/ul (4.20-5.40); RED CELL DISTRIBUTION WIDTH 18.3 % (11.5-14.5)
[2017-01-23] MEDS: ENOXAPARIN 40 MG/0.4 ML SYG SC SCH (08:56)
[2017-01-23] MEDS: morphine 2 MG INJ IV PRN ×3 (08:57→23:57)
[2017-01-23 09:02] LABS: POSITIVE DIFF @See below
[2017-01-23 09:56] LABS: ANISOCYTOSIS 1+ (0-0); BASOPHILS % (M) 1 % (0-2); HYPOCHROMASIA 1+ (0-0); MICROCYTOSIS 1+ (0-0); MONOCYTES % (M) 3 % (0-11); PLATELET ESTIMATE NORMAL; POLYCHROMASIA 3+ (0-0)
[2017-01-23] MEDS: HYDROCODONE/APAP (5/325) TAB PO PRN (12:04)
--- NOTE | 2017-01-23 13:36 | PN ---
Date/Time of Note Date/Time of Note DATE: 01/23/17 TIME: 13:34 Assessment/Plan VTE Prophylaxis VTE Prophylaxis Intervention: SCD's Lines/Catheters IV Catheter Type (from Nrsg): Saline Lock Urinary Cath still in place: Yes Reason Cath still needed: urinary retention Assessment/Plan Assessment/Plan 56 yo F with known stage 4 ovarian Ca here with abd pain from ascites which are most likely malignant in origin sp para 10.19 PLAN await para path pain control urine culture results noted, await sensies. pt without c/o dysuria cs for stent eval given hydro on imaging FULL CODE (affirmed with patient and son) pt's oncologist Dr Donis in [place] aware of this admission Subjective 24 Hr Interval Summary Free Text/Dictation 4L out in para yesterday. Pt reports abd pain much better Exam/Review of Systems Vital Signs Vitals Vital Signs Date Time Temp Pulse Resp B/P Pulse Ox O2 Delivery O2 Flow Rate FiO2 01/23/17 12:19 98.0 97 18 97/57 97 01/22/17 21:22 Nasal Cannula 3.0 Intake and Output 01/22/17 01/22/17 01/23/17 15:00 23:00 07:00 Intake Total 50 ml 2140 ml 350 ml Output Total 1700 ml Balance 50 ml 2140 ml -1350 ml Exam nad, looks more comfortable abd much smaller +sen in place no edema no rashes fluid cytology pending Results Result Diagram: 01/23/17 0727 01/22/17 1215 Results 24 hrs Laboratory Tests Test 01/22/17 13:54 01/22/17 16:50 01/22/17 18:20 01/23/17 07:27 Lactic Acid Level 1.0 1.2 Pathologist Review (Hematology) YES-PATH TO CONFIRM Body Fluid Type ASCITES Body Fluid Volume 1000.0 Body Fluid Color RED Body Fluid Appearance BLOODY Body Fluid WBC 1995 Body Fluid RBC (Auto) 257 Body Fluid Polynuclear WBCs (%) 4.8 Body Fluid Mononuclear Cells % Auto 95.2 Body Fluid Other Cells Body Fluid Total Protein 6.5 White Blood Count 25.0 #H Red Blood Count 3.61 L Hemoglobin 8.3 L Hematocrit 28.0 L Mean Corpuscular Volume 77.6 L Mean Corpuscular Hemoglobin 23.0 L Mean Corpuscular Hemoglobin Concent 29.6 L Red Cell Distribution Width 18.3 H Platelet Count 369 # Mean Platelet Volume 11.8 H Neutrophils % Segmented Neutrophils % (Manual) 74 Band Neutrophils % (Manual) 20 H Lymphocytes % Lymphocytes % (Manual) 2 L Monocytes % Monocytes % (Manual) 3 Eosinophils % Basophils % Basophils % (Manual) 1 Nucleated Red Blood Cells % 0.0 Neutrophils # Neutrophils # (Manual) 19.8 H Band Neutrophils # 5.0 H Absolute Lymphocytes (Manual) 0.5 L Lymphocytes # Monocytes # Absolute Monocytes (Manual) 0.7 Eosinophils # Basophils # Basophils # (Manual) 0.2 H Nucleated Red Blood Cells # Platelet Estimate NORMAL Polychromasia 3+ Hypochromasia 1+ Anisocytosis 1+ Microcytosis 1+ Medications Medications Current Medications Ondansetron HCl (Zofran Tab) 4 mg Q6H PRN PO NAUSEA AND/OR VOMITING; Start at 16:00 Ondansetron HCl (Zofran Inj) 4 mg Q6H PRN IV NAUSEA AND/OR VOMITING; Start at 16:00 Acetaminophen (Tylenol Tab) 650 mg Q6H PRN PO PAIN LEVEL 1-3 OR FEVER Last administered on 01/22/17 19:39; Admin Dose 650 MG; Start 01/22/17 at 16:00 Acetaminophen/ Hydrocodone Bitart ([place] (5/325)) 1 tab Q6H PRN PO MODERATE PAIN LEVEL 4-6 Last administered on 01/23/17 12:04; Admin Dose 1 TAB; Start 01/22/17 at 16:00 Docusate Sodium (Colace) 100 mg Q12H PRN PO CONSTIPATION; Start 01/22/17 at 16 :00 Magnesium Hydroxide (Milk Of Mag) 30 ml DAILY PRN PO CONSTIPATION; Start 01/22 at 16:00 Bisacodyl (Dulcolax) 5 mg DAILY PRN PO CONSTIPATION; Start 01/22/17 at 16:00 Enoxaparin Sodium (Lovenox) 40 mg DAILY SC Last administered on 01/23/17 08: 56; Admin Dose 40 MG; Start 01/23/17 at 09:00 Morphine Sulfate (morphine) 2 mg Q4H PRN IV pain Last administered on 08:57; Admin Dose 2 MG; Start 01/22/17 at 16:00 DAYANARA BROWN MD Jan 23, 2017 13:36
[2017-01-23 16:51] LABS: FLD TYPE ASCITES
--- NOTE | 2017-01-23 19:21 | CONS ---
Date/Time of Note Date/Time of Note DATE: 01/23/17 TIME: 19:02 Assessment/Plan Assessment/Plan Chief Complaint/Hosp Course 56-year-old female with stage IV ovarian cancer presented to the hospital with abdominal pain. CT scan of the abdomen and pelvis showed bilateral hydronephrosis more severe on the right side. The patient underwent paracentesis and 4 L were drained and sent for cytology. I did explain to the patient the finding of the hydronephrosis and the treatment for that which will be insertion of JJ stents. I explained to her that the stents are inserted to help the kidney draining and that the need to be changed every 3 months which basically means trip to the hospital and anesthesia. If the stents are not exchanged they become dirty and sometimes they get calcified and they become a problem themselves. Also because of the urinary retention that she had she may need to have an indwelling Cullen catheter and that raises the risk of infection and even pyelonephritis. I also informed the patient should I see any mass inside the bladder from invasion of the tumor into the bladder I could do a biopsy for diagnostic purposes. The patient did understand all of that and she understood the gravity of her disease and she is agreeable to proceed. Problems: Consultation Date/Type/Reason Admit Date/Time Date of Consultation: Jan 23, 2017 Type of Consultation: Urology Reason for Consultation Bilateral hydronephrosis secondary to possible ovarian cancer and pelvic mass Referring Provider: DAYANARA BROWN MD Hx of Present Illness 56 yo F with known stage 4 ovarian ca with omental mets here with abd pain. Pt suspected to have ovarian Ca just a few months ago. Has seen an oncologist (Dr Donis in [place]) but has not yet had biopsy/tissue diagnosis made to start therapy. Pt has had ascites since her diagnosis, last week Dr Donis was in the process of trying to set patient up for diagnostic and therapeutic paracenthesis but that has not yet occurred. The patient presented to the hospital with abdominal pain. She underwent a CT scan of the abdomen and pelvis and that showed severe right hydronephrosis with the right ureter dilated down to the pelvic mass where it is encased by the tumor. Also she does have moderate left hydronephrosis. Therefore a urological consultation was requested Constitutional: poor po Eyes: no complaints ENT: no complaints Respiratory: shortness of breath Cardiovascular: chest pain Gastrointestinal: constipation, other (Large abdomen), pain Genitourinary: No bleeding, No hematuria Musculoskeletal: no complaints Neurologic: no complaints Endocrine: no complaints Past Surgical History Past Surgical Hx: other (Surgery on her leg from a fractured bone) Family History Significant Family History: no pertinent family hx Social History Alcohol Use: occasionally Smoking Status: Former smoker Exam/Review of Systems Vital Signs Vitals Vital Signs Date Time Temp Pulse Resp B/P Pulse Ox O2 Delivery O2 Flow Rate FiO2 01/23/17 16:49 98.0 73 18 101/58 98 01/22/17 21:22 Nasal Cannula 3.0 Intake and Output 01/22/17 01/22/17 01/23/17 15:00 23:00 07:00 Intake Total 50 ml 2140 ml 350 ml Output Total 1700 ml Balance 50 ml 2140 ml -1350 ml Exam Constitutional: alert, oriented Head: normocephalic Eyes: nl conjunctiva ENMT: nl external ears & nose Neck: supple Respiratory: normal air movement Cardiovascular: No edema Gastrointestinal: ascites, distended, firm, mass (Mostly lower abdomen), tender Genitourinary - Female: other (Has an indwelling Cullen catheter, pelvic exam: mass is felt behind the bladder) Musculoskeletal: muscle weakness Extremities: No calf tenderness Skin: nl turgor Results Result Diagram: 01/23/17 0727 01/22/17 1215 Results 24 hrs Laboratory Tests Test 01/23/17 07:27 White Blood Count 25.0 #H Red Blood Count 3.61 L Hemoglobin 8.3 L Hematocrit 28.0 L Mean Corpuscular Volume 77.6 L Mean Corpuscular Hemoglobin 23.0 L Mean Corpuscular Hemoglobin Concent 29.6 L Red Cell Distribution Width 18.3 H Platelet Count 369 # Mean Platelet Volume 11.8 H Neutrophils % Segmented Neutrophils % (Manual) 74 Band Neutrophils % (Manual) 20 H Lymphocytes % Lymphocytes % (Manual) 2 L Monocytes % Monocytes % (Manual) 3 Eosinophils % Basophils % Basophils % (Manual) 1 Nucleated Red Blood Cells % 0.0 Neutrophils # Neutrophils # (Manual) 19.8 H Band Neutrophils # 5.0 H Absolute Lymphocytes (Manual) 0.5 L Lymphocytes # Monocytes # Absolute Monocytes (Manual) 0.7 Eosinophils # Basophils # Basophils # (Manual) 0.2 H Nucleated Red Blood Cells # Platelet Estimate NORMAL Polychromasia 3+ Hypochromasia 1+ Anisocytosis 1+ Microcytosis 1+ Imaging Free Text/Dictation CT scan of the abdomen and pelvis: 1. When compared to the previous study of 11/02/2016, there is again a large conglomerate pelvic mass inseparable from the uterus, sigmoid colon and rectum containing clumps of calcification suspicious for calcified fibroids and containing cystic areas. Ovarian and less likely uterine neoplasm cannot be excluded. 2. Large amount of free intraperitoneal fluid measuring 25 HU with caking of the omentum compatible with carcinomatosis. This may be ovarian in etiology. 3. Centralization of bowel without evidence of bowel obstruction. 4. Moderately severe right hydronephrosis and hydroureter to the level of the pelvic mass. There is moderate left pelvocaliectasis without ureteral dilatation. The bladder is quite distended with urine. 5. Interval development of a 4.5 x 3.6 x 3.1 cm subcapsular hypodensity within the inferior medial posterior segment of the right lobe of the liver which measures 36 HU. This could represent necrotic tumor or possibly abscess. The liver is fatty infiltrated. 6. Gallbladder wall edema and suspicion of a 2 cm gallstone which could be confirmed sonographically. No bile duct dilatation is evident. 7. Persistent moderate gravitating left pleural fluid accumulation with discoid atelectasis seen in the posterior sulci. CTA Chest with contrast : No CT evidence for pulmonary embolus. Moderate pulmonary vascular congestion with a small left pleural effusion. Large volume ascites in the visualized upper abdomen as well as cholelithiasis, peroneal thickening, and at least moderate right hydronephrosis. These are better characterized on the CT abdomen/pelvis study from the same date PROCEDURE: US guided paracentesis CLINICAL INDICATION: Ascites TECHNIQUE: Multiple sonographic images were obtained through the patient's abdomen. A site in the patient's RIGHT lower abdomen was selected and marked. The area was prepped and draped in the usual sterile fashion. 1% lidocaine was utilized. A 19-gauge Yueh needle was advanced into the peritoneal space and the introducer was connected to a vacuum drainage bottle. A total of 4000 cc of bloody fluid were drained at the end of the procedure. The patient tolerated the procedure well. The specimen was sent for laboratory evaluation. COMPARISON: None FINDINGS: Ascites. RPTAT: AA IMPRESSION: Successful paracentesis. Patient underwent paracentesis Medications Medications Current Medications Ondansetron HCl (Zofran Tab) 4 mg Q6H PRN PO NAUSEA AND/OR VOMITING; Start at 16:00 Ondansetron HCl (Zofran Inj) 4 mg Q6H PRN IV NAUSEA AND/OR VOMITING; Start at 16:00 Acetaminophen (Tylenol Tab) 650 mg Q6H PRN PO PAIN LEVEL 1-3 OR FEVER Last administered on 01/22/17 19:39; Admin Dose 650 MG; Start 01/22/17 at 16:00 Acetaminophen/ Hydrocodone Bitart ([place] (5/325)) 1 tab Q6H PRN PO MODERATE PAIN LEVEL 4-6 Last administered on 01/23/17 12:04; Admin Dose 1 TAB; Start 01/22/17 at 16:00 Docusate Sodium (Colace) 100 mg Q12H PRN PO CONSTIPATION; Start 01/22/17 at 16 :00 Magnesium Hydroxide (Milk Of Mag) 30 ml DAILY PRN PO CONSTIPATION; Start 01/22 at 16:00 Bisacodyl (Dulcolax) 5 mg DAILY PRN PO CONSTIPATION; Start 01/22/17 at 16:00 Enoxaparin Sodium (Lovenox) 40 mg DAILY SC Last administered on 01/23/17 08: 56; Admin Dose 40 MG; Start 01/23/17 at 09:00 Morphine Sulfate (morphine) 2 mg Q4H PRN IV pain Last administered on 19:00; Admin Dose 2 MG; Start 01/22/17 at 16:00 EMILIE ALBERT MD Jan 23, 2017 19:13
[2017-01-23] MEDS: MAGNESIUM HYDROXIDE 30ML CUP PO PRN (23:57)
[2017-01-24] VITALS (24 sets, daily range): BP systolic 103–148; BP diastolic 56–84; PULSE 87–110; RESP 15–22
[2017-01-24] MEDS: morphine 2 MG INJ IV PRN ×2 (04:22→10:47)
[2017-01-24] MEDS: BISACODYL (EC) 5 MG TAB PO PRN (05:07)
[2017-01-24] MEDS: HYDROCODONE/APAP (5/325) TAB PO PRN (05:07)
--- NOTE | 2017-01-24 07:26 | HPN ---
Date/Time of Note Date/Time of Note DATE: 01/24/17 TIME: 07:26 Interval H&P Admission Note Pt. seen H&P reviewed: No system changes EMILIE ALBERT MD Jan 24, 2017 07:26
[2017-01-24] MEDS: ENOXAPARIN 40 MG/0.4 ML SYG SC SCH (09:00)
[2017-01-24] MEDS ORDERED: PROPOFOL 20 ML ONE (11:36)
[2017-01-24] MEDS ORDERED: CEFAZOLIN 1 GM INJ ONE (11:36)
[2017-01-24] MEDS ORDERED: NEOSTIGMINE 3 MG/3 ML SYRINGE ONE (11:36)
[2017-01-24] MEDS ORDERED: ROCURONIUM 50 MG INJ ONE (11:36)
[2017-01-24] MEDS ORDERED: GLYCOPYRROLATE 0.4 MG INJ ONE (11:36)
[2017-01-24] MEDS ORDERED: FENTAnyl 50 MCG/ML VIAL ONE ×2 (11:39→12:34)
[2017-01-24] MEDS ORDERED: DEXAMETHASONE 4 MG/ML 1 ML INJ ONE (11:39)
[2017-01-24] MEDS ORDERED: MIDAZOLAM 1 MG/ML 2 ML INJ ONE (11:39)
[2017-01-24] MEDS ORDERED: ONDANSETRON 4 MG INJ ONE (11:39)
[2017-01-24] MEDS ORDERED: FENTAnyl 50 MCG/ML VIAL IV PRN ×3 (12:00)
[2017-01-24] MEDS ORDERED: MEPERIDINE 25 MG INJ IV PRN (12:00)
[2017-01-24] MEDS ORDERED: DIPHENHYDRAMINE 50 MG INJ IV PRN (12:00)
[2017-01-24] MEDS ORDERED: ONDANSETRON 4 MG INJ IV PRN (12:00)
[2017-01-24] MEDS ORDERED: MIDAZOLAM 1 MG/ML 2 ML INJ IV PRN (12:00)
[2017-01-24] MEDS ORDERED: LABETALOL HCL 20MG INJ IV PRN (12:00)
[2017-01-24] MEDS ORDERED: IPRATROPIUM (NEB) 0.5 MG/2.5 ML AMP HHN PRN (12:00)
[2017-01-24] MEDS ORDERED: OXYCODONE/ACETAMINOPHEN (5/325) TAB PO PRN ×2 (12:00)
[2017-01-24] MEDS ORDERED: hydrALAzine 20 MG INJ IV PRN (12:00)
[2017-01-24] MEDS ORDERED: ALBUTEROL 0.083% (NEB) 2.5 MG/3 ML AMP HHN PRN (12:00)
[2017-01-24] MEDS ORDERED: HYDROmorphONE (0.2 MG/ML) 10ML SYG IV PRN ×3 (12:00)
[2017-01-24] MEDS ORDERED: TRIMETHOBENZAMIDE 100 MG/ML VIAL IM PRN (12:00)
[2017-01-24] MEDS ORDERED: EPHEDrine SULFATE 50 MG/5 ML SYG IV PRN (12:00)
[2017-01-24] MEDS ORDERED: IOHEXOL 300MG/ML 30 ML BTL ONE (12:14)
[2017-01-24] MEDS ORDERED: PHENYLephrine (100 MCG/ML) 5ML SYG ONE (12:18)
--- NOTE | 2017-01-24 13:20 | OPR ---
Date/Time of Note Date/Time of Note DATE: 01/24/17 TIME: 13:12 Operative Report Procedure Date: Jan 24, 2017 Preoperative Diagnosis Bilateral hydronephrosis right more than left, urinary retention, suspected of having stage IV ovarian cancer Postoperative Diagnosis Bilateral hydronephrosis right more than left, urinary retention, suspected of having stage IV ovarian cancer Operation/Procedure Performed Cystoscopy bilateral retrograde pyelograms and insertion of bilateral JJ stents 7 [place] by 28 cm long on the right, 7 [place]ian by 26 cm long on the left Surgeon see signature line Parts Data Writer None Anesthesia Type: general Anesthesiologist: Pramod Frias M.D. Estimated Blood Loss: none Transfusion none Specimen None Grafts/Implants none Complications none Pt Condition Post Procedure: stable Disposition: PACU Indications Bilateral hydronephrosis most likely from tumor encasement of the ureters. Urinary retention Procedure Description The patient was brought to the operating room and given general anesthesia. The patient was then positioned in the lithotomy position and the genital area was prepped and draped in the usual sterile manner. The patient received 2 g of Ancef at the start of the procedure. #21 [place] cystoscope sheath was introduced into the bladder then the bladder was inspected and appeared to be pushed anteriorly by the tumor. There was no definite tumor inside the bladder itself. The ureteral orifices were identified and were pushed laterally. The right ureteral orifice was then cannulated was a 5 [place] open ended ureteral catheter and a retrograde pyelogram was done that showed the proximal ureter and kidney to be very dilated. Similar finding were noticed on the left side but the hydronephrosis is much less. On the right side the ureter was told to use and once I was able to pass the zip wire up to the kidney I advanced on it the 5 [place] open ended and then switch the zip wire to a sensor wire which is more rigid and that allowed the ureter to straighten up then on the sensor wire I advanced the 7 [place] by 28 cm long JJ stent and had its proximal and curling into the right kidney and the distal end curling into the bladder. The left renal collecting system was not as dilated as the right side. Therefore on the left side I inserted a 7 [place] by 26 cm long JJ stent. At the end of the procedure a 16 [place] Cullen catheter was inserted and connected to a drainage bag the patient tolerated the procedure well and was transferred to the recovery room in a stable and satisfactory condition EMILIE ALBERT MD Jan 24, 2017 13:20
--- NOTE | 2017-01-24 13:28 | PN ---
Date/Time of Note Date/Time of Note DATE: 01/24/17 TIME: 13:27 Assessment/Plan VTE Prophylaxis VTE Prophylaxis Intervention: SCD's Lines/Catheters IV Catheter Type (from Nrsg): Saline Lock Urinary Cath still in place: Yes Reason Cath still needed: urinary retention Assessment/Plan Assessment/Plan 56 yo F with known stage 4 ovarian Ca here with abd pain from ascites which are most likely malignant in origin sp para 10.19 PLAN para path malignant pain control urine culture results noted, await sensies. pt without c/o dysuria to place ureteral stents today FULL CODE (affirmed with patient and son) pt's oncologist Dr Donis in [place] aware of this admission will dc in AM Subjective 24 Hr Interval Summary Free Text/Dictation Pt emerging from washroom just prior to going to OR at time of my eval Exam/Review of Systems Vital Signs Vitals Vital Signs Date Time Temp Pulse Resp B/P Pulse Ox O2 Delivery O2 Flow Rate FiO2 01/24/17 13:11 104 19 111/68 92 Nasal Cannula 4.0 01/24/17 13:06 98.0 Intake and Output 01/23/17 01/23/17 01/24/17 15:00 23:00 07:00 Intake Total 800 ml 650 ml Output Total 1400 ml 1100 ml Balance -600 ml -450 ml Exam nad sen draining yellow urine abd less distended no rashes no edema Results Result Diagram: 01/23/17 0727 01/22/17 1215 Medications Medications Current Medications Ondansetron HCl (Zofran Tab) 4 mg Q6H PRN PO NAUSEA AND/OR VOMITING; Start at 16:00 Ondansetron HCl (Zofran Inj) 4 mg Q6H PRN IV NAUSEA AND/OR VOMITING; Start at 16:00 Acetaminophen (Tylenol Tab) 650 mg Q6H PRN PO PAIN LEVEL 1-3 OR FEVER Last administered on 01/22/17 19:39; Admin Dose 650 MG; Start 01/22/17 at 16:00 Acetaminophen/ Hydrocodone Bitart ([place] (5/325)) 1 tab Q6H PRN PO MODERATE PAIN LEVEL 4-6 Last administered on 01/24/17 05:07; Admin Dose 1 TAB; Start 01/22/17 at 16:00 Docusate Sodium (Colace) 100 mg Q12H PRN PO CONSTIPATION; Start 01/22/17 at 16 :00 Magnesium Hydroxide (Milk Of Mag) 30 ml DAILY PRN PO CONSTIPATION Last administered on 01/23/17 23:57; Admin Dose 30 ML; Start 01/22/17 at 16:00 Bisacodyl (Dulcolax) 5 mg DAILY PRN PO CONSTIPATION Last administered on 05:07; Admin Dose 5 MG; Start 01/22/17 at 16:00 Enoxaparin Sodium (Lovenox) 40 mg DAILY SC Last administered on 01/23/17 08: 56; Admin Dose 40 MG; Start 01/23/17 at 09:00 Morphine Sulfate (morphine) 2 mg Q4H PRN IV pain Last administered on 10:47; Admin Dose 2 MG; Start 01/22/17 at 16:00 DAYANARA BROWN MD Jan 24, 2017 13:28
--- NOTE | 2017-01-24 15:36 | RADRPT ---
PROCEDURE: Intraoperative imaging of the abdomen and pelvis with fluoroscopy. CLINICAL INDICATION: Abdominal pain. Intraoperative. TECHNIQUE: 28 images of the abdomen and pelvis were obtained in the operating room with an image i ntensifier. No radiologist was in attendance. 226 seconds of fluoroscopy time was used. COMPARISON: CT scan of the abdomen and pelvis dated 01/22/2017. FINDINGS: Images demonstrate bilateral retrograde urogram as with contrast injected into both ureters and uppe r collecting systems and subsequent placement of bilateral double pigtail ureteral stents. The retrograde urogram is demonstrated severe right hydronephrosis and moderate left hydronephrosis. Both ureters are dilated with the right ureter markedly dilated and tortuous. IMPRESSION: 1. Satisfactory intraoperative imaging of the abdomen and pelvis. 2. Placement of bilateral ureteral stents. RPTAT: QQ .Eliud Yoder MD, Date Time Electronically viewed and signed by .Eliud Yoder MD, on 01/24/2017 15:36 .R/
[2017-01-24] MEDS ORDERED: HYDROmorphONE 0.5 MG/0.5 ML SYG IV STA (20:47)
[2017-01-24] MEDS ORDERED: MAGNESIUM CITRATE 300 ML BTL PO ONE (22:00)
[2017-01-25] VITALS (11 sets, daily range): BP systolic 91–125; BP diastolic 55–80; PULSE 97–108; RESP 15–18
[2017-01-25] MEDS: morphine 2 MG INJ IV PRN ×2 (05:15→18:27)
[2017-01-25] MEDS: ENOXAPARIN 40 MG/0.4 ML SYG SC SCH (08:15)
[2017-01-25] MEDS ORDERED: HYDROCODONE/APAP (5/325) TAB PO PRN (14:00)
--- NOTE | 2017-01-25 14:41 | PN ---
Date/Time of Note Date/Time of Note DATE: 01/25/17 TIME: 14:35 Assessment/Plan VTE Prophylaxis VTE Prophylaxis Intervention: ambulation Lines/Catheters IV [facility] Saline Lock Urinary Cath still in place: No Assessment/Plan Chief Complaint/Hosp Course 56-year-old female with stage IV ovarian cancer presented to the hospital with abdominal pain. CT scan of the abdomen and pelvis showed bilateral hydronephrosis more severe on the right side. The patient underwent paracentesis and 4 L were drained and sent for cytology. The patient underwent cystoscopy and insertion of bilateral JJ stents yesterday, she does have an indwelling Cullen catheter that is draining well and the color of the urine is blood-tinged. The tumor is pressing on the bladder mostly around the trigone of the bladder neck. That may make it difficult for her to urinate as a matter of fact she did have urinary retention when she came in. However we will remove the Cullen catheter now to give her a chance to urinate on her own, check her residual by inserting a catheter rather than doing a bladder scan because of her ascites and if her postvoid residual is over 300 mL we shall keep the catheter and or if she does not urinate we will put the catheter and keep it in , then she could be discharged home with a Cullen catheter and a leg bag. She should follow-up with her primary care physician, her oncologist and the primary care physician should refer her to a urologist who is contracted with the medical group. Problems: Subjective 24 Hr Interval Summary Constitutional: no complaints Respiratory: no complaints Cardiovascular: no complaints Gastrointestinal: no complaints, other (Distended abdomen) Genitourinary: other (Cullen catheter draining well, urine is blood-tinged) Exam/Review of Systems Vital Signs Vitals Vital Signs Date Time Temp Pulse Resp B/P Pulse Ox O2 Delivery O2 Flow Rate FiO2 01/25/17 12:00 108 01/25/17 11:58 98.6 18 123/73 96 01/24/17 14:41 Room Air 01/24/17 13:19 4.0 Intake and Output 01/24/17 01/24/17 01/25/17 15:00 23:00 07:00 Intake Total 1100 ml 720 ml 530 ml Output Total 15 ml 1300 ml 700 ml Balance 1085 ml -580 ml -170 ml Exam Constitutional: alert, oriented Psych: no complaints Eyes: nl conjunctiva ENMT: nl external ears & nose Neck: supple Respiratory: normal air movement Cardiovascular: No edema Gastrointestinal: distended Genitourinary - Female: other (Status post cystoscopy and insertion of bilateral JJ stents) Results Result Diagram: 01/23/17 0727 01/22/17 1215 Medications Medications Current Medications Ondansetron HCl (Zofran Tab) 4 mg Q6H PRN PO NAUSEA AND/OR VOMITING; Start at 16:00 Ondansetron HCl (Zofran Inj) 4 mg Q6H PRN IV NAUSEA AND/OR VOMITING; Start at 16:00 Acetaminophen (Tylenol Tab) 650 mg Q6H PRN PO PAIN LEVEL 1-3 OR FEVER Last administered on 01/22/17 19:39; Admin Dose 650 MG; Start 01/22/17 at 16:00 Acetaminophen/ Hydrocodone Bitart ([place] (5/325)) 1 tab Q6H PRN PO MODERATE PAIN LEVEL 4-6 Last administered on 01/24/17 05:07; Admin Dose 1 TAB; Start 01/22/17 at 16:00 Docusate Sodium (Colace) 100 mg Q12H PRN PO CONSTIPATION; Start 01/22/17 at 16 :00 Magnesium Hydroxide (Milk Of Mag) 30 ml DAILY PRN PO CONSTIPATION Last administered on 01/23/17 23:57; Admin Dose 30 ML; Start 01/22/17 at 16:00 Bisacodyl (Dulcolax) 5 mg DAILY PRN PO CONSTIPATION Last administered on 05:07; Admin Dose 5 MG; Start 01/22/17 at 16:00 Enoxaparin Sodium (Lovenox) 40 mg DAILY SC Last administered on 01/25/17 08: 15; Admin Dose 40 MG; Start 01/23/17 at 09:00 Acetaminophen/ Hydrocodone Bitart ([place] (5/325)) 1 tab Q3H PRN PO PAIN; Start 01/25/17 at 14:00 EMILIE ALBERT MD Jan 25, 2017 14:41
[2017-01-25] MEDS: HYDROCODONE/APAP (5/325) TAB PO PRN (17:41)
--- NOTE | 2017-01-25 18:01 | PN ---
Date/Time of Note Date/Time of Note DATE: 01/25/17 TIME: 17:59 Assessment/Plan VTE Prophylaxis VTE Prophylaxis Intervention: SCD's Lines/Catheters IV Catheter Type (from Nrsg): Saline Lock Urinary Cath still in place: No (d/c) Assessment/Plan Assessment/Plan 56 yo F with known stage 4 ovarian Ca here with abd pain from ascites which are most likely malignant in origin sp para 10.19, hospitalization also notable for AUR 2/2 mass effect from ovarian ca PLAN para path malignant pain control sp ureteral stents by for hydrp failed trial of voiding. pt will need to be discharged with sen in place and f /u with FULL CODE (affirmed with patient and son) pt's oncologist Dr Donis in [place] aware of this admission anticipate dc in AM if pain controlled Subjective 24 Hr Interval Summary Free Text/Dictation failed voiding trial Exam/Review of Systems Vital Signs Vitals Vital Signs Date Time Temp Pulse Resp B/P Pulse Ox O2 Delivery O2 Flow Rate FiO2 01/25/17 16:26 98.7 111 18 121/68 98 01/24/17 14:41 Room Air 01/24/17 13:19 4.0 Intake and Output 01/24/17 01/24/17 01/25/17 15:00 23:00 07:00 Intake Total 1100 ml 720 ml 530 ml Output Total 15 ml 1300 ml 700 ml Balance 1085 ml -580 ml -170 ml Exam nad no mrg lungs clear sen with yellow urine no rashes Results Result Diagram: 01/23/17 0727 01/22/17 1215 Medications Medications Current Medications Ondansetron HCl (Zofran Tab) 4 mg Q6H PRN PO NAUSEA AND/OR VOMITING; Start at 16:00 Ondansetron HCl (Zofran Inj) 4 mg Q6H PRN IV NAUSEA AND/OR VOMITING; Start at 16:00 Acetaminophen (Tylenol Tab) 650 mg Q6H PRN PO PAIN LEVEL 1-3 OR FEVER Last administered on 01/22/17 19:39; Admin Dose 650 MG; Start 01/22/17 at 16:00 Acetaminophen/ Hydrocodone Bitart ([place] (5/325)) 1 tab Q6H PRN PO MODERATE PAIN LEVEL 4-6 Last administered on 01/25/17 17:41; Admin Dose 1 TAB; Start 01/22/17 at 16:00 Docusate Sodium (Colace) 100 mg Q12H PRN PO CONSTIPATION; Start 01/22/17 at 16 :00 Magnesium Hydroxide (Milk Of Mag) 30 ml DAILY PRN PO CONSTIPATION Last administered on 01/23/17 23:57; Admin Dose 30 ML; Start 01/22/17 at 16:00 Bisacodyl (Dulcolax) 5 mg DAILY PRN PO CONSTIPATION Last administered on 05:07; Admin Dose 5 MG; Start 01/22/17 at 16:00 Enoxaparin Sodium (Lovenox) 40 mg DAILY SC Last administered on 01/25/17 08: 15; Admin Dose 40 MG; Start 01/23/17 at 09:00 Acetaminophen/ Hydrocodone Bitart ([place] (5/325)) 1 tab Q3H PRN PO PAIN; Start 01/25/17 at 14:00 DAYANARA BROWN MD Jan 25, 2017 18:01
[2017-01-25] MEDS ORDERED: HYDROmorphONE 0.5 MG/0.5 ML SYG IV ONE (19:30)
[2017-01-26] VITALS (12 sets, daily range): BP systolic 105–139; BP diastolic 66–91; PULSE 103–118; RESP 18–20
[2017-01-26] MEDS: HYDROCODONE/APAP (5/325) TAB PO PRN (01:52)
[2017-01-26] MEDS ORDERED: HYDROmorphONE 0.5 MG/0.5 ML SYG IV ONE (03:00)
[2017-01-26] MEDS ORDERED: SOD CHLORIDE 0.9% 500 ML IV ONE (08:00)
[2017-01-26] MEDS: morphine 2 MG INJ IV PRN ×2 (08:15→18:05)
[2017-01-26] MEDS: ENOXAPARIN 40 MG/0.4 ML SYG SC SCH (09:00)
[2017-01-26] MEDS: CEFEPIME 2GM/50 ML (PMX) 50 ML IVPB SCH ×2 (14:00→22:24)
--- NOTE | 2017-01-26 14:20 | PN ---
Date/Time of Note Date/Time of Note DATE: 01/26/17 TIME: 14:00 Assessment/Plan VTE Prophylaxis VTE Prophylaxis Intervention: LMWH Lines/Catheters IV Catheter Type (from Nrsg): Saline Lock Urinary Cath still in place: Yes Reason Cath still needed: urinary retention Assessment/Plan Chief Complaint/Hosp Course Assessment/Plan: 56 yo F with known stage 4 ovarian Ca here with abd pain from ascites which are most likely malignant in origin sp para 10., hospitalization also notable for AUR 2/2 mass effect from ovarian ca 1. stage 4 ovarian cancer - para path is malignant continue pain control sp ureteral stents by for hydrp POD # 2 - With positive hematuria, follow-up urology recommendations, monitor Likely will need to be discharged with sen in place and f/u with FULL CODE (affirmed with patient and son) pt's oncologist Dr Donis in [place] aware of this admission Problems: Subjective 24 Hr Interval Summary Free Text/Dictation Patient still with hematuria today. Exam/Review of Systems Vital Signs Vitals Vital Signs Date Time Temp Pulse Resp B/P Pulse Ox O2 Delivery O2 Flow Rate FiO2 01/26/17 12:00 107 01/26/17 11:54 97.7 20 113/66 98 01/26/17 04:00 Room Air 01/24/17 13:19 4.0 Intake and Output 01/25/17 01/25/17 01/26/17 14:59 22:59 06:59 Intake Total 600 ml 800 ml Output Total 800 ml 750 ml Balance -200 ml 50 ml Exam nad no mrg lungs clear sen In place no rashes Results Result Diagram: 01/23/17 0727 01/22/17 1215 Medications Medications Current Medications Ondansetron HCl (Zofran Tab) 4 mg Q6H PRN PO NAUSEA AND/OR VOMITING; Start at 16:00 Ondansetron HCl (Zofran Inj) 4 mg Q6H PRN IV NAUSEA AND/OR VOMITING; Start at 16:00 Acetaminophen (Tylenol Tab) 650 mg Q6H PRN PO PAIN LEVEL 1-3 OR FEVER Last administered on 01/22/17t 19:39; Admin Dose 650 MG; Start 01/22/17 at 16:00 Acetaminophen/ Hydrocodone Bitart ([place] (5/325)) 1 tab Q6H PRN PO MODERATE PAIN LEVEL 4-6 Last administered on 01/26/17 01:52; Admin Dose 1 TAB; Start 01/22/17 at 16:00 Docusate Sodium (Colace) 100 mg Q12H PRN PO CONSTIPATION; Start 01/22/17 at 16 :00 Magnesium Hydroxide (Milk Of Mag) 30 ml DAILY PRN PO CONSTIPATION Last administered on 01/23/17 23:57; Admin Dose 30 ML; Start 01/22/17 at 16:00 Bisacodyl (Dulcolax) 5 mg DAILY PRN PO CONSTIPATION Last administered on 05:07; Admin Dose 5 MG; Start 01/22/17 at 16:00 Enoxaparin Sodium (Lovenox) 40 mg DAILY SC Last administered on 01/25/17 08: 15; Admin Dose 40 MG; Start 01/23/17 at 09:00 Acetaminophen/ Hydrocodone Bitart ([place] (5/325)) 1 tab Q3H PRN PO PAIN; Start 01/25/17 at 14:00 Morphine Sulfate 2 mg 2 mg Q4H PRN IV PAIN LEVEL 7-10 Last administered on 08:15; Admin Dose 2 MG; Start 01/25/17 at 18:30 Cefepime HCl (Maxipime 2gm/50 ml (Pmx)) 50 ml @ 100 mls/hr Q12 IVPB ; Start at 14:00 KENTRELL MACIAS Jan 26, 2017 14:11
[2017-01-26] MEDS: POLYETHYLENE GLYCOL 17 GM PACKET PO SCH (18:03)
[2017-01-26] MEDS ORDERED: NA PHOSPHATE/BIPHOS 133 ML ENEMA PR PRN (20:30)
[2017-01-26] MEDS: DOCUSATE SODIUM 100 MG CAP PO SCH (22:24)
[2017-01-27] VITALS (11 sets, daily range): BP systolic 120–147; BP diastolic 68–96; PULSE 105–119; RESP 17–20
[2017-01-27] MEDS: morphine 2 MG INJ IV PRN ×2 (01:37→08:03)
[2017-01-27] MEDS ORDERED: VITAMIN A & D 5 GM OINT PACKET TOP ONE (03:07)
[2017-01-27 07:39] LABS: BASOPHILS % 0.3 % (0.0-2.0); EOSINOPHILS # 0.1 10^3/ul (0.0-0.5); EOSINOPHILS % 1.2 % (0.0-7.0); HEMATOCRIT 33.4 % (37.0-47.0); HEMOGLOBIN 10.3 g/dl (12.0-16.0); LYMPHOCYTES # 0.6 10^3/ul (0.8-2.9); LYMPHOCYTES % 8.4 % (15.0-51.0); MEAN CORPUSCULAR HEMOGLOBIN 23.4 pg (29.0-33.0); MEAN CORPUSCULAR HGB CONC 30.8 g/dl (32.0-37.0); MEAN CORPUSCULAR VOLUME 75.7 fl (82.0-101.0); MEAN PLATELET VOLUME 11.4 fl (7.4-10.4); MONOCYTE # 0.7 10^3/ul (0.3-0.9); MONOCYTES % 9.5 % (0.0-11.0); NEUTROPHIL # 5.7 10^3/ul (1.6-7.5); NEUTROPHILS % 79.5 % (39.0-77.0); PLATELET COUNT 392 10^3/UL (140-415); RED BLOOD COUNT 4.41 10^6/ul (4.20-5.40); RED CELL DISTRIBUTION WIDTH 17.4 % (11.5-14.5); WHITE BLOOD COUNT 7.2 10^3/ul (4.8-10.8)
[2017-01-27 08:04] LABS: CREATININE 0.65 mg/dl (0.44-1.00); POTASSIUM 4.3 mmol/L (3.5-5.1)
[2017-01-27] MEDS: POLYETHYLENE GLYCOL 17 GM PACKET PO SCH (09:00)
[2017-01-27] MEDS: DOCUSATE SODIUM 100 MG CAP PO SCH ×2 (09:00→21:35)
--- NOTE | 2017-01-27 09:44 | RADRPT ---
PROCEDURE: XR ABDOMEN. CLINICAL INDICATION: Abdominal pain TECHNIQUE: 2 views of the abdomen were obtained. COMPARISON: Prior CT abdomen dated January 22, 2017 FINDINGS: There is a single loop of mildly dilated small bowel within the left mid abdomen. No evidence of air -fluid levels. Stool and air is noted throughout large bowel. Bilateral double J ureteric stents are noted. No evidence of subdiaphragmatic free air. No gross abnormal calcifications overlying the uri nary tracts. The visualized osseous structures are unremarkable. IMPRESSION: 1. Single loop of mildly dilated small bowel within the left mid abdomen, likely focal ileus. No manda dence of bowel obstruction. 2. Bilateral double J ureteric stents. 3. No gross evidence of subdiaphragmatic free air. RPTAT: AAPP Physician Kate Date Time Electronically viewed and signed by Physician Kate on 01/27/2017 09:44 AVERY/
[2017-01-27] MEDS ORDERED: HYDROmorphONE 2 MG/ML SYG IV PRN (10:30)
[2017-01-27] MEDS: CEFEPIME 2GM/50 ML (PMX) 50 ML IVPB SCH ×2 (11:26→21:35)
--- NOTE | 2017-01-27 13:46 | PN ---
Date/Time of Note Date/Time of Note DATE: 01/27/17 TIME: 13:41 Assessment/Plan VTE Prophylaxis VTE Prophylaxis Intervention: LMWH Lines/Catheters IV Catheter Type (from Nrsg): Saline Lock Urinary Cath still in place: Yes Reason Cath still needed: urinary retention Assessment/Plan Chief Complaint/Hosp Course Assessment/Plan: 56 yo F with known stage 4 ovarian Ca here with abd pain from ascites which are most likely malignant in origin sp para 10.19, hospitalization also notable for AUR 2/2 mass effect from ovarian ca 1. stage 4 ovarian cancer - para path is malignant continue pain control sp ureteral stents by for hydrp POD # 3 - With positive hematuria, follow-up urology recommendations, monitor Likely will need to be discharged with sen in place and f/u with FULL CODE (affirmed with patient and son) pt's oncologist Dr Donis in [place] aware of this admission Problems: Subjective 24 Hr Interval Summary Free Text/Dictation Patient has some abdominal pain this morning, still has not had bowel movement, but per nursing staff refused to take MiraLAX and Colace. Exam/Review of Systems Vital Signs Vitals Vital Signs Date Time Temp Pulse Resp B/P Pulse Ox O2 Delivery O2 Flow Rate FiO2 01/27/17 12:00 105 01/27/17 11:24 98.2 17 129/82 98 01/26/17 04:00 Room Air 01/24/17 13:19 4.0 Intake and Output 01/26/17 01/26/17 01/27/17 15:00 23:00 07:00 Intake Total 400 ml Output Total 500 ml Balance -100 ml Exam nad no mrg lungs clear sen In place abd slight distension no LE edema B/L Results Result Diagram: 01/27/17 0648 01/27/17 0648 Results 24 hrs Laboratory Tests Test 01/27/17 06:48 White Blood Count 7.2 # Red Blood Count 4.41 # Hemoglobin 10.3 #L Hematocrit 33.4 L Mean Corpuscular Volume 75.7 L Mean Corpuscular Hemoglobin 23.4 L Mean Corpuscular Hemoglobin Concent 30.8 L Red Cell Distribution Width 17.4 H Platelet Count 392 Mean Platelet Volume 11.4 H Neutrophils % 79.5 H Lymphocytes % 8.4 L Monocytes % 9.5 Eosinophils % 1.2 Basophils % 0.3 Nucleated Red Blood Cells % 0.0 Neutrophils # 5.7 Lymphocytes # 0.6 L Monocytes # 0.7 Eosinophils # 0.1 Basophils # 0.0 Nucleated Red Blood Cells # 0.0 Sodium Level 140 Potassium Level 4.3 Chloride Level 104 Carbon Dioxide Level 25 Anion Gap 15 Blood Urea Nitrogen 12 Creatinine 0.65 Glucose Level 76 Calcium Level 9.0 Medications Medications Current Medications Ondansetron HCl (Zofran Tab) 4 mg Q6H PRN PO NAUSEA AND/OR VOMITING; Start at 16:00 Ondansetron HCl (Zofran Inj) 4 mg Q6H PRN IV NAUSEA AND/OR VOMITING; Start at 16:00 Acetaminophen (Tylenol Tab) 650 mg Q6H PRN PO PAIN LEVEL 1-3 OR FEVER Last administered on 01/22/17 19:39; Admin Dose 650 MG; Start 01/22/17 at 16:00 Acetaminophen/ Hydrocodone Bitart (Norton (5/325)) 1 tab Q6H PRN PO MODERATE PAIN LEVEL 4-6 Last administered on 01/26/17 01:52; Admin Dose 1 TAB; Start 01/22/17 at 16:00 Docusate Sodium (Colace) 100 mg Q12H PRN PO CONSTIPATION; Start 01/22/17 at 16 :00 Magnesium Hydroxide (Milk Of Mag) 30 ml DAILY PRN PO CONSTIPATION Last administered on 01/23/17 23:57; Admin Dose 30 ML; Start 01/22/17 at 16:00 Bisacodyl (Dulcolax) 5 mg DAILY PRN PO CONSTIPATION Last administered on 05:07; Admin Dose 5 MG; Start 01/22/17 at 16:00 Acetaminophen/ Hydrocodone Bitart (Norton (5/325)) 1 tab Q3H PRN PO PAIN Last administered on 01/27/17 10:14; Admin Dose 1 TAB; Start 01/25/17 at 14:00 Morphine Sulfate 2 mg 2 mg Q4H PRN IV PAIN LEVEL 7-10 Last administered on 08:03; Admin Dose 2 MG; Start 01/25/17 at 18:30 Cefepime HCl (Maxipime 2gm/50 ml (Pmx)) 50 ml @ 100 mls/hr Q12 IVPB Last administered on 01/27/17 11:26; Admin Dose 100 MLS/HR; Start 01/26/17 at 14: 00 Polyethylene Glycol (Miralax) 17 gm DAILY PO Last administered on 01/26/17 18 :03; Admin Dose 17 GM; Start 01/26/17 at 15:30 Docusate Sodium (Colace) 100 mg BID PO Last administered on 01/26/17 22:24; Admin Dose 100 MG; Start 01/26/17 at 15:30 Sodium Biphosphate/ Sodium Phosphate (Fleet Enema) 133 ml DAILY PRN [place] CONSTIPATION Last administered on 01/27/17 06:17; Admin Dose 133 ML; Start at 20:30 Hydromorphone HCl (Dilaudid) 1 mg Q2 PRN IV PAIN; Start 01/27/17 at 10:30 KENTRELL MACIAS Jan 27, 2017 13:45
[2017-01-27] MEDS: TOLTERODINE (SR) 4 MG CAP PO SCH (16:44)
[2017-01-27] MEDS: KETOROLAC 15 MG INJ IV SCH ×2 (16:45→21:35)
--- NOTE | 2017-01-27 18:21 | CONS ---
Date/Time of Note Date/Time of Note DATE: 01/27/17 TIME: 18:19 Assessment/Plan Assessment/Plan Chief Complaint/Hosp Course ADVANCED OVARIAN CANCER WITH MALIGNANT ASCITES AND PERITONEAL carcinomatosis Large conglomerate pelvic mass inseparable from the uterus, sigmoid colon and rectum containing clumps of calcification suspicious for calcified fibroids and containing cystic areas. Large amount of free intraperitoneal fluid measuring 25 HU with caking of the omentum compatible with carcinomatosis. Centralization of bowel without evidence of bowel obstruction. Moderately severe right hydronephrosis and hydroureter to the level of the pelvic mass. There is moderate left pelvocaliectasis without ureteral dilatation. The bladder is quite distended with urine. POST cystoscopy and insertion of bilateral JJ stents CT CHEST - EDOUARD, EXCEPT SMALL L PLEURAL EFFUSION CHECK CA 125 GYNEONC EVAL ANEMIA, MICROCYTOSIS CHECK IRON STORES AND PROCEED WITH ANEMIA W-UP Problems: Consultation Date/Type/Reason Admit Date/Time Date of Consultation: Jan 27, 2017 Type of Consultation: HEMEONC Reason for Consultation OVARIAN CANCER Referring Provider: JAD MACIAS Hx of Present Illness 56 yo F with known stage 4 ovarian ca with omental mets admitted with abd pain. Pt diagnosed with ovarian Ca just a few mos ago. Has seen an oncologist (Dr Donis in [place]) but has not yet had biopsy/tissue diagnosis made to start therapy. Pt did not have surgery or chemo yet Pt has had ascites since her diagnosis, last week Dr Donis was in the process of trying to set patient up for diagnostic and therapeutic para but that has not yet occurred. Eventually the abd pain from the ascites became so great that pt and her son presented to the ER. Pt also reports constipation. pt underwent paracentesis , cytology - (+) FOR ADENOCA I was asked to provide hemeonc consult PMH/Family/Social Past Medical History stage 4 ovarian Ca Social History Smoking Status: Former smoker Constitutional: no complaints Eyes: no complaints ENT: no complaints Respiratory: no complaints Cardiovascular: no complaints Gastrointestinal: no complaints, other (Distended abdomen) Genitourinary: other (Cullen catheter draining well, urine is blood-tinged) Musculoskeletal: no complaints Neurologic: no complaints Endocrine: no complaints Psychological: no complaints Past Surgical History Past Surgical Hx: other (Surgery on her leg from a fractured bone) Social History Alcohol Use: occasionally Smoking Status: Former smoker Exam/Review of Systems Vital Signs Vitals Vital Signs Date Time Temp Pulse Resp B/P Pulse Ox O2 Delivery O2 Flow Rate FiO2 01/27/17 16:00 110 01/27/17 15:59 98.1 17 147/96 96 01/26/17 04:00 Room Air 01/24/17 13:19 4.0 Intake and Output 01/26/17 01/26/17 01/27/17 15:00 23:00 07:00 Intake Total 400 ml Output Total 500 ml Balance -100 ml Results [facility] a non[facility]profit [facility] [address] [place] [address] ; Lab No: [id number] Date: 01/22/2017 SPECIMEN: Paracentesis fluid for cytology CLINICAL: Stage 4 ovarian cancer GROSS EXAMINATION: Received is 100 ml of dark red, opaque fluid from which one cell button and two cytospin smears are prepared. MICROSCOPIC DESCRIPTION: The smears and the cell button show malignant cells forming glands and containing hyperchromatic nuclei with moderate pleomorphism and high N/C ratios. The block is forwarded to [facility] for the performance of immunohistochemical stains to characterize the malignant cells. The stains came with appropriate positive and negative controls which work correctly. CK7: Positive, membranous CK20: Negative PAX8: Negative WT1: Portion of the tumor cells positive, nuclear CDX2: Negative ER: Portion of tumor cells weakly positive, nuclear AR: Negative MICROSCOPIC DIAGNOSIS: Ascites: -- Positive for adenocarcinoma (please see comment). COMMENT: The staining pattern is not perfect, but can be seen in ovarian primary. Clinical correlation is recommended. This case was reviewed by Dr. Melchor Cortez who concurs. The case was discussed with Dr. Jad Macias on 01/27/2017. / Date of Service: 01/22/17; Date Received: 01/23/17 Dictated/Transcribed/Sent by Fax: 01/27/17; Reviewed: CARMINE COMMENT: The immunoperoxidase stains reported above were developed and its performance characteristics determined by [facility]. It has not been cleared or approved by the U.S. Food and Drug Administration, although such approval is not required for analyte-specific reagents of this type. Elida Hendrix M.D. Pathologist Electronically Signed 01/27/2017 MARY DE LEON M.D. 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 Result Diagram: 01/27/17 0648 01/27/17 0648 Results 24 hrs Laboratory Tests Test 01/27/17 06:48 White Blood Count 7.2 # Red Blood Count 4.41 # Hemoglobin 10.3 #L Hematocrit 33.4 L Mean Corpuscular Volume 75.7 L Mean Corpuscular Hemoglobin 23.4 L Mean Corpuscular Hemoglobin Concent 30.8 L Red Cell Distribution Width 17.4 H Platelet Count 392 Mean Platelet Volume 11.4 H Neutrophils % 79.5 H Lymphocytes % 8.4 L Monocytes % 9.5 Eosinophils % 1.2 Basophils % 0.3 Nucleated Red Blood Cells % 0.0 Neutrophils # 5.7 Lymphocytes # 0.6 L Monocytes # 0.7 Eosinophils # 0.1 Basophils # 0.0 Nucleated Red Blood Cells # 0.0 Sodium Level 140 Potassium Level 4.3 Chloride Level 104 Carbon Dioxide Level 25 Anion Gap 15 Blood Urea Nitrogen 12 Creatinine 0.65 Glucose Level 76 Calcium Level 9.0 Medications Medications Current Medications Ondansetron HCl (Zofran Tab) 4 mg Q6H PRN PO NAUSEA AND/OR VOMITING; Start at 16:00 Ondansetron HCl (Zofran Inj) 4 mg Q6H PRN IV NAUSEA AND/OR VOMITING; Start at 16:00 Acetaminophen (Tylenol Tab) 650 mg Q6H PRN PO PAIN LEVEL 1-3 OR FEVER Last administered on 01/22/17t 19:39; Admin Dose 650 MG; Start 01/22/17 at 16:00 Docusate Sodium (Colace) 100 mg Q12H PRN PO CONSTIPATION; Start 01/22/17 at 16 :00 Magnesium Hydroxide (Milk Of Mag) 30 ml DAILY PRN PO CONSTIPATION Last administered on 01/23/17 23:57; Admin Dose 30 ML; Start 01/22/17 at 16:00 Bisacodyl 5 mg 5 mg DAILY PRN PO CONSTIPATION Last administered on 01/24/17 05:07; Admin Dose 5 MG; Start 01/22/17 at 16:00 Cefepime HCl (Maxipime 2gm/50 ml (Pmx)) 50 ml @ 100 mls/hr Q12 IVPB Last administered on 01/27/17 11:26; Admin Dose 100 MLS/HR; Start 01/26/17 at 14: 00 Polyethylene Glycol (Miralax) 17 gm DAILY PO Last administered on 01/26/17 18 :03; Admin Dose 17 GM; Start 01/26/17 at 15:30 Docusate Sodium (Colace) 100 mg BID PO Last administered on 01/26/17 22:24; Admin Dose 100 MG; Start 01/26/17 at 15:30 Sodium Biphosphate/ Sodium Phosphate (Fleet Enema) 133 ml DAILY PRN [place] CONSTIPATION Last administered on 01/27/17 06:17; Admin Dose 133 ML; Start at 20:30 Hydromorphone HCl (Dilaudid [employer]) 1 MG/HR CONTINUOUS RATE ... Q4PCA IV ; Start 01/27/17 at 15:00 Ketorolac Tromethamine (Toradol) 15 mg Q6H IV Last administered on 01/27/17 16:45; Admin Dose 15 MG; Start 01/27/17 at 15:00; Stop 01/30/17 at 14:59 Tolterodine Tartrate (Detrol La) 4 mg DAILY PO Last administered on 01/27/17 16:44; Admin Dose 4 MG; Start 01/27/17 at 15:30 Procedures Procedures [place] [address] Radiology Main Line: [phone] DIAGNOSTIC IMAGING REPORT Patient: LUISANA JOVEL : 1960 Age: 56 Sex: F MR #: [id number] DOS: 01/22/17 1157 Ordering MD: YULIYA KIM MD Location: E/R Room/Bed: PROCEDURE: CTA Chest with contrast and with 3-D reconstructions CLINICAL INDICATION: Pulmonary embolism, chest pain, shortness of breath, sepsis TECHNIQUE: The study was performed utilizing multidetector CT scanner. Direct spiral axial sections were obtained from the thoracic inlet to the upper abdomen with the use of intravenous contrast material (115 cc of Omnipaque 350) . Sagittal, coronal and 3-D reformations were obtained. The images were reviewed on a PACS workstation. DLP 1442.79 mGycm CTDIvol 2.82, 16.90, 16.13, 13.84 mGy One or more of the following dose reduction techniques were used: - Automated exposure control. - Adjustment of the mA and/or kV according to patient size. - Use of iterative reconstruction technique. COMPARISON: CT abdomen/pelvis from the same date FINDINGS: There are no pulmonary emboli. There is moderate pulmonary vascular congestion. There is mild left pleural effusion. There is no pneumothorax. Heart size is within normal limits. There is no pericardial fluid. The aorta is within normal limits. There are no enlarged axillary or mediastinal lymph nodes. Large volume ascites is identified in the visualized upper abdomen as well as prominent peritoneal thickening, cholelithiasis, and partially visualized at least moderate right hydronephrosis. Osseous and soft tissue structures are within normal limits. IMPRESSION: No CT evidence for pulmonary embolus. Moderate pulmonary vascular congestion with a small left pleural effusion. Large volume ascites in the visualized upper abdomen as well as cholelithiasis, peroneal thickening, and at least moderate right hydronephrosis. These are better characterized on the CT abdomen/pelvis study from the same date. Please see the report for that study for additional findings. RPTAT: EE Physician Pili Date Time Electronically viewed and signed by Tigre Norris Physician on 01/22/2017 15:23 RA/ CC: YULIYA KIM MD [place] [address] Radiology Main Line: [phone] DIAGNOSTIC IMAGING REPORT Patient: LUISANA JOVEL : 1960 Age: 56 Sex: F MR #: [id number] DOS: 01/22/17 1157 Ordering MD: YULIYA KIM MD Location: E/R Room/Bed: AMENDMENT: 01/22/2017 4:16:36 PM Lucas Echols MD PROCEDURE: CT Abdomen and Pelvis with Contrast CLINICAL INDICATION: Back and flank pain, possible sepsis TECHNIQUE: Transaxial images were obtained through the abdomen and pelvis on a multi-slice scanner following the intravenous administration of contrast. Oral contrast had previously been given. Sagittal and coronal re-formations were subsequently reconstructed. One or more of the following dose reduction techniques were used: - Automated exposure control. - Adjustment of the mA and/or kV according to patient size. - Use of iterative reconstruction technique. Radiation dose: CTDIvol = 30.74 mGy; DLP = 188.79 mGy-cm. COMPARISON: 11/02/2016 FINDINGS: Lung bases: There is again a moderate-sized gravitating left pleural fluid accumulation at measures 12 HU. Discoid atelectasis is again seen at the posterior sulci. Liver: The liver remains normal in size. There is been interval development of a subcapsular fluid collection measuring 4.5 x 3.6 x 3.1 cm located at the inferior medial tip of the cough on lobe that measures 36 HU. The liver appears diffusely fatty infiltrated. Gallbladder: The gallbladder wall remains quite edematous and a 2 cm gallstone is evident. Bile ducts: The intra and extrahepatic bile ducts are normal in caliber. Pancreas: Appears normal with no mass or inflammation evident. Spleen: Normal in size with no focal lesion. Adrenals: Normal with no mass identified. Kidneys, ureters and bladder: A 6 mm cyst is seen at the lateral mid pole right kidney. A 3 mm cyst is seen at the superior pole. There is moderately severe right hydronephrosis and hydroureter seen to the pelvis. No ureterolith is evident. On the left, there is mild pelvocaliectasis without ureteral dilatation evident. The bladder is quite distended with urine. Reproductive organs: There is a large heterogeneous mass located posterior to the bladder containing cystic areas as well as clusters of calcification and segments of bowel air appear represent colon. This measures approximate 20 cm in cranial caudad dimension and approximately 15 x 9 cm in maximum cross diameter. Stomach, bowel, and mesentery: The stomach appears unremarkable. The bowel is centralized secondary to a large amount of free intraperitoneal fluid. There is omental caking suspicious for carcinomatosis. Appendix: The vermiform appendix is not discretely identified. Peritoneum: There is a large amount of free intraperitoneal fluid that measures 25 HU suspicious for a malignant fluid. Aorta: Normal in caliber with no aneurysmal dilatation. IVC: Unremarkable. Lymph nodes: No pathologically enlarged nodes are identified. Osseous structures: The osseous elements appear intact. IMPRESSION: 1. When compared to the previous study of 11/02/2016, there is again a large conglomerate pelvic mass inseparable from the uterus, sigmoid colon and rectum containing clumps of calcification suspicious for calcified fibroids and containing cystic areas. Ovarian and less likely uterine neoplasm cannot be excluded. 2. Large amount of free intraperitoneal fluid measuring 25 HU with caking of the omentum compatible with carcinomatosis. This may be ovarian in etiology. 3. Centralization of bowel without evidence of bowel obstruction. 4. Moderately severe right hydronephrosis and hydroureter to the level of the pelvic mass. There is moderate left pelvocaliectasis without ureteral dilatation. The bladder is quite distended with urine. 5. Interval development of a 4.5 x 3.6 x 3.1 cm subcapsular hypodensity within the inferior medial posterior segment of the right lobe of the liver which measures 36 HU. This could represent necrotic tumor or possibly abscess. The liver is fatty infiltrated. 6. Gallbladder wall edema and suspicion of a 2 cm gallstone which could be confirmed sonographically. No bile duct dilatation is evident. 7. Persistent moderate gravitating left pleural fluid accumulation with discoid atelectasis seen in the posterior sulci. Physician Dorothy Date Time Electronically viewed and signed by Physician Dorothy on 01/22/2017 16:18 RH/ CC: BORM, MD AMADA THAKKAR VERA M MD Jan 27, 2017 18:21
--- NOTE | 2017-01-27 19:16 | PN ---
Date/Time of Note Date/Time of Note DATE: 01/27/17 TIME: 19:12 Assessment/Plan VTE Prophylaxis VTE Prophylaxis Intervention: ambulation, anti-embolic stocking Lines/Catheters IV [facility] Saline Lock Urinary Cath still in place: Yes Reason Cath still needed: urinary retention Assessment/Plan Chief Complaint/Hosp Course 56-year-old female with stage IV ovarian cancer presented to the hospital with abdominal pain. CT scan of the abdomen and pelvis showed bilateral hydronephrosis more severe on the right side. The patient underwent paracentesis and 4 L were drained and sent for cytology. The pathology report came out as ovarian cancer. the patient underwent cystoscopy and insertion of bilateral JJ stents , she does have an indwelling Cullen catheter that is draining well and the color of the urine is blood-tinged. The tumor is pressing on the bladder mostly around the trigone of the bladder neck. That may make it difficult for her to urinate as a matter of fact she did have urinary retention when she came in. The Cullen catheter was removed earlier and the patient was not able to urinate so a new Cullen catheter was inserted Problems: Subjective 24 Hr Interval Summary Constitutional: no complaints (She feels better as she had 2 bowel movements today) Eyes: no complaints ENT: no complaints Respiratory: no complaints Cardiovascular: no complaints Gastrointestinal: passing stool (2 times today) Genitourinary: other (Cullen catheter in place and draining blood-tinged urine.) Musculoskeletal: no complaints Endocrine: no complaints Exam/Review of Systems Vital Signs Vitals Vital Signs Date Time Temp Pulse Resp B/P Pulse Ox O2 Delivery O2 Flow Rate FiO2 01/27/17 16:00 110 01/27/17 15:59 98.1 17 147/96 96 01/26/17 04:00 Room Air 01/24/17 13:19 4.0 Intake and Output 01/26/17 01/26/17 01/27/17 15:00 23:00 07:00 Intake Total 400 ml Output Total 500 ml Balance -100 ml Exam Constitutional: alert Psych: no complaints Eyes: nl conjunctiva ENMT: nl external ears & nose Neck: supple Respiratory: normal air movement Cardiovascular: No edema Gastrointestinal: ascites, distended Genitourinary - Female: other (Cullen catheter in place) Extremities: No calf tenderness Results Result Diagram: 01/27/17 0648 01/27/17 0648 Results 24 hrs Laboratory Tests Test 01/27/17 06:48 White Blood Count 7.2 # Red Blood Count 4.41 # Hemoglobin 10.3 #L Hematocrit 33.4 L Mean Corpuscular Volume 75.7 L Mean Corpuscular Hemoglobin 23.4 L Mean Corpuscular Hemoglobin Concent 30.8 L Red Cell Distribution Width 17.4 H Platelet Count 392 Mean Platelet Volume 11.4 H Neutrophils % 79.5 H Lymphocytes % 8.4 L Monocytes % 9.5 Eosinophils % 1.2 Basophils % 0.3 Nucleated Red Blood Cells % 0.0 Neutrophils # 5.7 Lymphocytes # 0.6 L Monocytes # 0.7 Eosinophils # 0.1 Basophils # 0.0 Nucleated Red Blood Cells # 0.0 Sodium Level 140 Potassium Level 4.3 Chloride Level 104 Carbon Dioxide Level 25 Anion Gap 15 Blood Urea Nitrogen 12 Creatinine 0.65 Glucose Level 76 Calcium Level 9.0 Medications Medications Current Medications Ondansetron HCl (Zofran Tab) 4 mg Q6H PRN PO NAUSEA AND/OR VOMITING; Start at 16:00 Ondansetron HCl (Zofran Inj) 4 mg Q6H PRN IV NAUSEA AND/OR VOMITING; Start at 16:00 Acetaminophen (Tylenol Tab) 650 mg Q6H PRN PO PAIN LEVEL 1-3 OR FEVER Last administered on 01/22/17 19:39; Admin Dose 650 MG; Start 01/22/17 at 16:00 Docusate Sodium (Colace) 100 mg Q12H PRN PO CONSTIPATION; Start 01/22/17 at 16 :00 Magnesium Hydroxide (Milk Of Mag) 30 ml DAILY PRN PO CONSTIPATION Last administered on 01/23/17 23:57; Admin Dose 30 ML; Start 01/22/17 at 16:00 Bisacodyl 5 mg 5 mg DAILY PRN PO CONSTIPATION Last administered on 01/24/17 05:07; Admin Dose 5 MG; Start 01/22/17 at 16:00 Cefepime HCl (Maxipime 2gm/50 ml (Pmx)) 50 ml @ 100 mls/hr Q12 IVPB Last administered on 01/27/17 11:26; Admin Dose 100 MLS/HR; Start 01/26/17 at 14: 00 Polyethylene Glycol (Miralax) 17 gm DAILY PO Last administered on 01/26/17 18 :03; Admin Dose 17 GM; Start 01/26/17 at 15:30 Docusate Sodium (Colace) 100 mg BID PO Last administered on 01/26/17 22:24; Admin Dose 100 MG; Start 01/26/17 at 15:30 Sodium Biphosphate/ Sodium Phosphate (Fleet Enema) 133 ml DAILY PRN [place] CONSTIPATION Last administered on 01/27/17 06:17; Admin Dose 133 ML; Start at 20:30 Hydromorphone HCl (Dilaudid [employer]) 1 MG/HR CONTINUOUS RATE ... Q4PCA IV ; Start 01/27/17 at 15:00 Ketorolac Tromethamine (Toradol) 15 mg Q6H IV Last administered on 01/27/17 16:45; Admin Dose 15 MG; Start 01/27/17 at 15:00; Stop 01/30/17 at 14:59 Tolterodine Tartrate (Detrol La) 4 mg DAILY PO Last administered on 01/27/17 16:44; Admin Dose 4 MG; Start 01/27/17 at 15:30 EMILIE ALBERT MD Jan 27, 2017 19:16
--- NOTE | 2017-01-27 22:00 | QN ---
Documentation Comment 56 y/o female with pelvic mass and ascites that has been present since at least 11/02/16 and per sequential imaging has progressed. After reviewing chart in detail it appears no chemo thus far and no primary surgery. By all criteria patient should have a primary cytoreductive surgery as soon as possible per SGO standard criteria unless inoperable, then neoadjuvant chemo. Not clear why 3 months permitted disease progression. Will examine in a.m. and review options. Thank you. Russell Euceda M.D. RUSSELL EUCEDA MD Jan 27, 2017 22:00
[2017-01-27] MEDS: HYDROmorphONE 0.2 MG/ML PCA IV SCH (22:59)
[2017-01-28] VITALS (12 sets, daily range): BP systolic 101–145; BP diastolic 62–76; PULSE 96–105; RESP 16–20
[2017-01-28] MEDS: KETOROLAC 15 MG INJ IV SCH ×2 (03:00→09:00)
[2017-01-28] MEDS: HYDROmorphONE 0.2 MG/ML PCA IV SCH ×2 (04:04→10:21)
[2017-01-28] MEDS: ACETAMINOPHEN 325 MG TAB PO PRN (06:20)
--- NOTE | 2017-01-28 07:41 | CONS ---
Date/Time of Note Date/Time of Note DATE: 01/28/17 TIME: 07:36 Assessment/Plan Assessment/Plan Additional Assessment/Plan Severe abdominal pain secondary to intra-abdominal malignancy which is presumed but not biopsy proven. 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 Close follow-up will be done. Consultation Date/Type/Reason Admit Date/Time Type of Consultation: Pain management Hx of Present Illness This is a 56-year-old female recently diagnosed with presumptive stage IV ovarian cancer without biopsy diagnosis who presented to the emergency room [facility] with increasing abdominal distention and pain. Patient describes the pain is generalized but primarily at this time located in mid lower abdomen and pelvis. It is a continuous pain rated 10/10 and throbbing not lancinating pain, does not radiate to bilateral lower extremities or flank or back she is not improving with aggressive pain management at this time. States she is nauseous but is not vomiting, pain is been increasing severity throughout the day. Denies vomiting itching mental cloudiness sweating fatigue is no past medical history of drug alcohol or smoking abuse patient appears to be extremely uncomfortable at this time she is not Axon for changes in her medication just adequate pain management once again the pain is described as extremely severe. Current pain control medications only moderately controls her pain from 10/10-8/10 and only for very short periods of time. This is interfering with her physical functioning her mood and sleeping patterns and overall she is extremely weak in depressed Constitutional: no complaints Eyes: no complaints ENT: no complaints Respiratory: no complaints Cardiovascular: no complaints Gastrointestinal: no complaints, other (Distended abdomen) Genitourinary: other (Cullen catheter draining well, urine is blood-tinged) Musculoskeletal: no complaints Neurologic: no complaints Endocrine: no complaints Psychological: no complaints Past Surgical History Past Surgical Hx: other (Surgery on her leg from a fractured bone) Social History Alcohol Use: occasionally Smoking Status: Former smoker Exam/Review of Systems Vital Signs Vitals Vital Signs Date Time Temp Pulse Resp B/P Pulse Ox O2 Delivery O2 Flow Rate FiO2 01/28/17 07:22 98.5 101 16 111/76 95 01/28/17 06:12 Room Air 01/24/17 13:19 4.0 Intake and Output 01/27/17 01/27/17 01/28/17 14:59 22:59 06:59 Intake Total 600 ml 800 ml Output Total 800 ml 250 ml Balance -200 ml 550 ml Exam Constitutional: distress Psych: nl mood/affect, no complaints, No anxiety, No confusion, No depression, No other, No suicidal Head: atraumatic, normocephalic, No hematomas, No lacerations, No other ENMT: nl external ears & nose, nl lips & teeth, nl nasal mucosa & septum, No intubated, No mucosa pink and moist, No other, No tympanic membranes Respiratory: clear to auscultation, normal air movement, No congested cough, No crackles/rales, No diminished breath sounds, No intercostal retraction, No labored breathing, No other, No respirations, No tactile fremitus, No wheezing Gastrointestinal: ascites, distended, tender Neurological: LEAD 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 II-XII intact, nl mental status, nl speech, nl strength, No DTR's symmetric, No confused, No focal weakness, No lethargic, No numbness , No other, No reflexes, No unresponsive Results Result Diagram: 01/27/1764701/27/17647 Medications Medications Current Medications Ondansetron HCl (Zofran Tab) 4 mg Q6H PRN PO NAUSEA AND/OR VOMITING; Start at 16:00 Ondansetron HCl (Zofran Inj) 4 mg Q6H PRN IV NAUSEA AND/OR VOMITING; Start at 16:00 Acetaminophen (Tylenol Tab) 650 mg Q6H PRN PO PAIN LEVEL 1-3 OR FEVER Last administered on 01/28/17 06:20; Admin Dose 650 MG; Start 01/22/17 at 16:00 Docusate Sodium (Colace) 100 mg Q12H PRN PO CONSTIPATION; Start 01/22/17 at 16 :00 Magnesium Hydroxide (Milk Of Mag) 30 ml DAILY PRN PO CONSTIPATION Last administered on 01/23/17 23:57; Admin Dose 30 ML; Start 01/22/17 at 16:00 Bisacodyl 5 mg 5 mg DAILY PRN PO CONSTIPATION Last administered on 01/24/17 05:07; Admin Dose 5 MG; Start 01/22/17 at 16:00 Cefepime HCl (Maxipime 2gm/50 ml (Pmx)) 50 ml @ 100 mls/hr Q12 IVPB Last administered on 01/27/17 21:35; Admin Dose 100 MLS/HR; Start 01/26/17 at 14: 00 Polyethylene Glycol (Miralax) 17 gm DAILY PO Last administered on 01/26/17 18 :03; Admin Dose 17 GM; Start 01/26/17 at 15:30 Docusate Sodium (Colace) 100 mg BID PO Last administered on 01/27/17 21:35; Admin Dose 100 MG; Start 01/26/17 at 15:30 Sodium Biphosphate/ Sodium Phosphate (Fleet Enema) 133 ml DAILY PRN [place] CONSTIPATION Last administered on 01/27/17 06:17; Admin Dose 133 ML; Start at 20:30 Hydromorphone HCl (Dilaudid EYE GLASS FRAME POLISHER) 1 MG/HR CONTINUOUS RATE ... Q4PCA IV Last administered on 01/28/17 04:04; Admin Dose 6 MG; Start 01/27/17 at 15:00 Ketorolac Tromethamine (Toradol) 15 mg Q6H IV Last administered on 01/27/17 21:35; Admin Dose 15 MG; Start 01/27/17 at 15:00; Stop 01/30/17 at 14:59 Tolterodine Tartrate (Detrol La) 4 mg DAILY PO Last administered on 01/27/17 16:44; Admin Dose 4 MG; Start 01/27/17 at 15:30 JENNIFER WILLIS Jan 28, 2017 07:41
[2017-01-28 07:48] LABS: BASOPHILS % 0.5 % (0.0-2.0); EOSINOPHILS # 0.2 10^3/ul (0.0-0.5); EOSINOPHILS % 2.6 % (0.0-7.0); HEMATOCRIT 36.7 % (37.0-47.0); MEAN CORPUSCULAR HEMOGLOBIN 23.2 pg (29.0-33.0); MEAN CORPUSCULAR VOLUME 77.3 fl (82.0-101.0); MEAN PLATELET VOLUME 10.9 fl (7.4-10.4); MONOCYTE # 0.9 10^3/ul (0.3-0.9); MONOCYTES % 10.8 % (0.0-11.0); NEUTROPHIL # 5.8 10^3/ul (1.6-7.5); NEUTROPHILS % 71.5 % (39.0-77.0); PLATELET COUNT 437 10^3/UL (140-415); RED BLOOD COUNT 4.75 10^6/ul (4.20-5.40); RED CELL DISTRIBUTION WIDTH 17.7 % (11.5-14.5); WHITE BLOOD COUNT 8.1 10^3/ul (4.8-10.8)
[2017-01-28 08:09] LABS: IRON 22 ug/dl (35-150)
[2017-01-28 08:10] LABS: CALCIUM 9.3 mg/dl (8.4-10.2); CREATININE 0.84 mg/dl (0.44-1.00); POTASSIUM 5.4 mmol/L (3.5-5.1)
[2017-01-28 08:18] LABS: TOTAL IRON BINDING CAPACITY 252 ug/dl (241-421)
[2017-01-28 08:44] LABS: THYROID STIMULATING HORMONE 15.3 MIU/L (0.465-4.680)
[2017-01-28 09:19] LABS: FOLATE 2.1 ng/ml (2.8-20.0)
[2017-01-28] MEDS: DOCUSATE SODIUM 100 MG CAP PO SCH ×2 (09:41→22:37)
[2017-01-28] MEDS: CEFEPIME 2GM/50 ML (PMX) 50 ML IVPB SCH ×2 (09:41→22:38)
[2017-01-28] MEDS: TOLTERODINE (SR) 4 MG CAP PO SCH (09:41)
[2017-01-28] MEDS: POLYETHYLENE GLYCOL 17 GM PACKET PO SCH (09:42)
[2017-01-28] MEDS ORDERED: ONDANSETRON 4 MG INJ IV SCH ×2 (10:00→16:00)
--- NOTE | 2017-01-28 11:52 | CONS ---
Date/Time of Note Date/Time of Note DATE: 01/28/17 TIME: 11:51 Consultation Date/Type/Reason Admit Date/Time Raul Euceda M.D. [facility] History and Physical Examination / Consultation Ania Mai Jan 28, 2017 Age:56 :1960 Physicians: Regional Liaison Oncology Technician Oncologist Referring MD: History of the Present Illness: This is a 56 female with abdominal/pelvic discomfort, abdominal distention consistent with known ascites, a pelvic mass and pending CA-125. Of note, the patient notes onset of pelvic / abdominal pain and evidense of pelvic disease consistent with primary ovarian cancer and metastatic disease with synptoms first noted 10/2016 by Onc elsewhere and NO surgery or chemo since that time with increase in aforementioned symptoms. On this admission at 2 ureteral stents placed due to symptomatic hydroureter. Medical history/ROS: all other systems unremarkable. Surgical history: no significant abdominal procedures. Medications: gardisil Colonoscopy Allergies: No active allergies recorded Family history: unremarkable. Social history: no identified high-risk categories. Review of Systems: Negative except for above noted Physical Examination General: Alert. HEENT: Pupils are equal, round, reactive to light and accommodation. Neck: Supple with no masses of lymphadenopathy. Breast: Deferred due to recent examination and responsibility of primary care physician. Chest: Clear to auscultation and percussion with no rales, rhonchi, or wheeze. Heart: Normal rhythm with no murmur. Abdominal Exam: soft other than lower abd firm mass, distended due to ascites, mildly tender, nl bowel sounds. Pelvic exam: Large central firm mass with cul-de-sac nodularity noted Rectal: confirmatory with pelvic exam. Neurological: Grossly intact Assessment: Probable ovarian cancer stage IIIc likely. Note; the bilateral hydroureter in this case was due to extrensic compression by pelvic disease which is commonly seen. NOTE: the standard of practice per the Society or Gynecologic Oncology is primary cytoreduction with a goal of the surgery to ideally remove all visible disease and start chemotherapy as soon as able. Neoadjuvant chemo is limited (per SGO) to: a) patients not able to tolerate surgery, b) inoperable due to extent of primary and metastatic disease Plan: Given than she IS technically operable and should have it before a SBO or LBO occurs, I would prefer to bowel prep and operate as soon as able: BIANCA/BSO, possible cytoreduction, possible bowel resection. All risks and benefits of this procedure have been discussed in detail with the patient, as well as alternative treatment strategies and their implications. The patient is aware that there is some possibility of a blood transfusion and its associated risks and benefits. She wishes to proceed and gives her informed consent. Will discuss and confirm with KALIN and Payton Euceda M.D. Constitutional: no complaints Eyes: no complaints ENT: no complaints Respiratory: no complaints Cardiovascular: no complaints Gastrointestinal: no complaints, other (Distended abdomen) Genitourinary: other (Cullen catheter draining well, urine is blood-tinged) Musculoskeletal: no complaints Neurologic: no complaints Endocrine: no complaints Psychological: nl mood/affect, no complaints, No anxiety, No confusion, No depression, No other, No suicidal Past Surgical History Past Surgical Hx: other (Surgery on her leg from a fractured bone) Social History Alcohol Use: occasionally Smoking Status: Former smoker Exam/Review of Systems Vital Signs Vitals Vital Signs Date Time Temp Pulse Resp B/P Pulse Ox O2 Delivery O2 Flow Rate FiO2 01/28/17 10:26 18 01/28/17 08:12 103 01/28/17 08:00 Nasal Cannula 2.0 01/28/17 07:22 98.5 111/76 95 Intake and Output 01/27/17 01/27/17 01/28/17 15:00 23:00 07:00 Intake Total 600 ml 800 ml Output Total 800 ml 250 ml Balance -200 ml 550 ml Results Result Diagram: 01/28/17 0738 01/28/17 0738 Results 24 hrs Laboratory Tests Test 01/28/17 07:38 White Blood Count 8.1 Red Blood Count 4.75 Hemoglobin 11.0 L Hematocrit 36.7 L Mean Corpuscular Volume 77.3 L Mean Corpuscular Hemoglobin 23.2 L Mean Corpuscular Hemoglobin Concent 30.0 L Red Cell Distribution Width 17.7 H Platelet Count 437 H Mean Platelet Volume 10.9 H Neutrophils % 71.5 Lymphocytes % 12.0 L Monocytes % 10.8 Eosinophils % 2.6 Basophils % 0.5 Nucleated Red Blood Cells % 0.0 Neutrophils # 5.8 Lymphocytes # 1.0 Monocytes # 0.9 Eosinophils # 0.2 Basophils # 0.0 Nucleated Red Blood Cells # 0.0 Sodium Level 140 Potassium Level 5.4 H Chloride Level 104 Carbon Dioxide Level 31 Anion Gap 10 # Blood Urea Nitrogen 15 Creatinine 0.84 Glucose Level 75 Uric Acid 6.0 Calcium Level 9.3 Iron Level 22 L Total Iron Binding Capacity 252 Percent Iron Saturation 9 L Ferritin 185.0 Lactate Dehydrogenase 471 Vitamin B12 Level 671 Folate 2.1 L Thyroid Stimulating Hormone (TSH) 15.300 H Medications Medications Current Medications Ondansetron HCl (Zofran Tab) 4 mg Q6H PRN PO NAUSEA AND/OR VOMITING; Start at 16:00 Acetaminophen (Tylenol Tab) 650 mg Q6H PRN PO PAIN LEVEL 1-3 OR FEVER Last administered on 01/28/17 06:20; Admin Dose 650 MG; Start 01/22/17 at 16:00 Docusate Sodium (Colace) 100 mg Q12H PRN PO CONSTIPATION; Start 01/22/17 at 16 :00 Magnesium Hydroxide (Milk Of Mag) 30 ml DAILY PRN PO CONSTIPATION Last administered on 01/23/17 23:57; Admin Dose 30 ML; Start 01/22/17 at 16:00 Bisacodyl 5 mg 5 mg DAILY PRN PO CONSTIPATION Last administered on 01/24/17 05:07; Admin Dose 5 MG; Start 01/22/17 at 16:00 Cefepime HCl (Maxipime 2gm/50 ml (Pmx)) 50 ml @ 100 mls/hr Q12 IVPB Last administered on 01/28/17 09:41; Admin Dose 100 MLS/HR; Start 01/26/17 at 14: 00 Polyethylene Glycol (Miralax) 17 gm DAILY PO Last administered on 01/28/17 09 :42; Admin Dose 17 GM; Start 01/26/17 at 15:30 Docusate Sodium (Colace) 100 mg BID PO Last administered on 01/28/17 09:41; Admin Dose 100 MG; Start 01/26/17 at 15:30 Sodium Biphosphate/ Sodium Phosphate (Fleet Enema) 133 ml DAILY PRN [place] CONSTIPATION Last administered on 01/27/17 06:17; Admin Dose 133 ML; Start at 20:30 Hydromorphone HCl (Dilaudid QA SPECIALIST) 1 MG/HR CONTINUOUS RATE ... Q4PCA IV Last administered on 01/28/17 10:21; Admin Dose 6 MG; Start 01/27/17 at 15:00 Tolterodine Tartrate (Detrol La) 4 mg DAILY PO Last administered on 01/28/17 09:41; Admin Dose 4 MG; Start 01/27/17 at 15:30 Ondansetron HCl (Zofran Inj) 4 mg Q6H IV Last administered on 01/28/17 09:55 ; Admin Dose 4 MG; Start 01/28/17 at 10:00 Ketorolac Tromethamine (Toradol) 15 mg Q6H PRN IV PAIN LEVEL 8-10; Start 01/28 at 15:00; Stop 01/31/17 at 14:59 RAUL EUCEDA MD Jan 28, 2017 11:52
[2017-01-28] MEDS ORDERED: ONDANSETRON 4 MG INJ IV STA (13:09)
[2017-01-28] MEDS ORDERED: TRIMETHOBENZAMIDE 100 MG/ML VIAL IM PRN (13:30)
[2017-01-28] MEDS ORDERED: ONDANSETRON INJ 8 MG in SOD CHLORIDE 0.9% 50 ML IV PRN (13:30)
--- NOTE | 2017-01-28 13:40 | PN ---
Date/Time of Note Date/Time of Note DATE: 01/28/17 TIME: 13:35 Assessment/Plan VTE Prophylaxis VTE Prophylaxis Intervention: LMWH Lines/Catheters IV Catheter Type (from Nrsg): Peripheral IV Urinary Cath still in place: Yes Reason Cath still needed: urinary retention Assessment/Plan Chief Complaint/Hosp Course Assessment/Plan: 56 yo F with known stage 4 ovarian Ca here with abd pain from ascites which are most likely malignant in origin sp para 10.19, hospitalization also notable for AUR 2/2 mass effect from ovarian ca 1. ovarian cancer - para path is malignant (adenocarcinoma), probable ovarian cancer stage IIIc likely - continue pain control, increase dosages of antiemetic medicines today - For possible surgical procedure by gynecology oncology team, follow-up their recommendations and hematology oncology recommendations - sp ureteral stents by POD # 4 - With positive hematuria, follow-up urology recommendations, monitor FULL CODE (affirmed with patient and son) pt's oncologist Dr Donis in [place] aware of this admission Problems: Subjective 24 Hr Interval Summary Free Text/Dictation Patient having some increased nausea symptoms and trouble holding down liquids. Seen by hematology oncology team and gynecology oncology team yesterday. 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 Exam/Review of Systems Vital Signs Vitals Vital Signs Date Time Temp Pulse Resp B/P Pulse Ox O2 Delivery O2 Flow Rate FiO2 01/28/17 12:10 100 01/28/17 11:36 97.4 17 145/75 94 01/28/17 08:00 Nasal Cannula 2.0 Intake and Output 01/27/17 01/27/17 01/28/17 15:00 23:00 07:00 Intake Total 600 ml 800 ml Output Total 800 ml 250 ml Balance -200 ml 550 ml Exam nad no mrg lungs clear sen In place abd slight distension no LE edema B/L Results Result Diagram: 01/28/17 0738 01/28/17 0738 Results 24 hrs Laboratory Tests Test 01/28/17 07:38 White Blood Count 8.1 Red Blood Count 4.75 Hemoglobin 11.0 L Hematocrit 36.7 L Mean Corpuscular Volume 77.3 L Mean Corpuscular Hemoglobin 23.2 L Mean Corpuscular Hemoglobin Concent 30.0 L Red Cell Distribution Width 17.7 H Platelet Count 437 H Mean Platelet Volume 10.9 H Neutrophils % 71.5 Lymphocytes % 12.0 L Monocytes % 10.8 Eosinophils % 2.6 Basophils % 0.5 Nucleated Red Blood Cells % 0.0 Neutrophils # 5.8 Lymphocytes # 1.0 Monocytes # 0.9 Eosinophils # 0.2 Basophils # 0.0 Nucleated Red Blood Cells # 0.0 Sodium Level 140 Potassium Level 5.4 H Chloride Level 104 Carbon Dioxide Level 31 Anion Gap 10 # Blood Urea Nitrogen 15 Creatinine 0.84 Glucose Level 75 Uric Acid 6.0 Calcium Level 9.3 Iron Level 22 L Total Iron Binding Capacity 252 Percent Iron Saturation 9 L Ferritin 185.0 Lactate Dehydrogenase 471 CA 125 Antigen 337.0 H Vitamin B12 Level 671 Folate 2.1 L Thyroid Stimulating Hormone (TSH) 15.300 H Medications Medications Current Medications Ondansetron HCl (Zofran Tab) 4 mg Q6H PRN PO NAUSEA AND/OR VOMITING; Start at 16:00 Acetaminophen (Tylenol Tab) 650 mg Q6H PRN PO PAIN LEVEL 1-3 OR FEVER Last administered on 01/28/17 06:20; Admin Dose 650 MG; Start 01/22/17 at 16:00 Docusate Sodium (Colace) 100 mg Q12H PRN PO CONSTIPATION; Start 01/22/17 at 16 :00 Magnesium Hydroxide (Milk Of Mag) 30 ml DAILY PRN PO CONSTIPATION Last administered on 01/23/17 23:57; Admin Dose 30 ML; Start 01/22/17 at 16:00 Bisacodyl 5 mg 5 mg DAILY PRN PO CONSTIPATION Last administered on 01/24/17 05:07; Admin Dose 5 MG; Start 01/22/17 at 16:00 Cefepime HCl (Maxipime 2gm/50 ml (Pmx)) 50 ml @ 100 mls/hr Q12 IVPB Last administered on 01/28/17 09:41; Admin Dose 100 MLS/HR; Start 01/26/17 at 14: 00 Polyethylene Glycol (Miralax) 17 gm DAILY PO Last administered on 01/28/17 09 :42; Admin Dose 17 GM; Start 01/26/17 at 15:30 Docusate Sodium (Colace) 100 mg BID PO Last administered on 01/28/17 09:41; Admin Dose 100 MG; Start 01/26/17 at 15:30 Sodium Biphosphate/ Sodium Phosphate (Fleet Enema) 133 ml DAILY PRN [place] CONSTIPATION Last administered on 01/27/17 06:17; Admin Dose 133 ML; Start at 20:30 Tolterodine Tartrate (Detrol La) 4 mg DAILY PO Last administered on 01/28/17 09:41; Admin Dose 4 MG; Start 01/27/17 at 15:30 Ketorolac Tromethamine (Toradol) 15 mg Q6H PRN IV PAIN LEVEL 8-10; Start 01/28 at 15:00; Stop 01/31/17 at 14:59 Trimethobenzamide HCl 200 mg 200 mg Q6H PRN IM NAUSEA AND/OR VOMITING; Start 01/28/17 at 13:30 Ondansetron HCl/ Sodium Chloride (Zofran Inj/NS) 54 ml @ 216 mls/hr Q6H IV ; Start 01/28/17 at 18:30 Morphine Sulfate (morphine) 2 mg Q2H PRN IV PAIN LEVEL 7-10; Start 01/28/17 at 14:00; Status KENTRELL ARECHIGA Jan 28, 2017 13:40
[2017-01-28] MEDS: ONDANSETRON INJ 8 MG in SOD CHLORIDE 0.9% 50 ML IV SCH (18:02)
--- NOTE | 2017-01-28 22:26 | CONS ---
Date/Time of Note Date/Time of Note DATE: 01/28/17 TIME: 22:24 Assessment/Plan Assessment/Plan Chief Complaint/Hosp Course ADVANCED OVARIAN CANCER WITH MALIGNANT ASCITES AND PERITONEAL carcinomatosis Large conglomerate pelvic mass inseparable from the uterus, sigmoid colon and rectum containing clumps of calcification suspicious for calcified fibroids and containing cystic areas. Large amount of free intraperitoneal fluid measuring 25 HU with caking of the omentum compatible with carcinomatosis. Centralization of bowel without evidence of bowel obstruction. Moderately severe right hydronephrosis and hydroureter to the level of the pelvic mass. There is moderate left pelvocaliectasis without ureteral dilatation. The bladder is quite distended with urine. POST cystoscopy and insertion of bilateral JJ stents CT CHEST - EDOUARD, EXCEPT SMALL L PLEURAL EFFUSION CHECK CA 125 GYNEONC EVAL noted plan- debulking surgery ANEMIA, MICROCYTOSIS complete ANEMIA W-UP Problems: Consultation Date/Type/Reason Admit Date/Time Jan 22, 2017 at 14:12 Initial Consult Date 01/27/17 [facility] Referring Provider: KENTRELL MACIAS 24 HR Interval Summary Free Text/Dictation all noted seen by gyneonc Exam/Review of Systems Vital Signs Vitals Vital Signs Date Time Temp Pulse Resp B/P Pulse Ox O2 Delivery O2 Flow Rate FiO2 01/28/17 20:00 103 01/28/17 20:00 97.8 18 101/62 97 01/28/17 08:00 Nasal Cannula 2.0 Intake and Output 01/27/17 01/27/17 01/28/17 15:00 23:00 07:00 Intake Total 600 ml 800 ml Output Total 800 ml 250 ml Balance -200 ml 550 ml Exam General: Alert. HEENT: Pupils are equal, round, reactive to light and accommodation. Neck: Supple with no masses of lymphadenopathy. Breast: Deferred due to recent examination and responsibility of primary care physician. Chest: Clear to auscultation and percussion with no rales, rhonchi, or wheeze. Heart: Normal rhythm with no murmur. Abdominal Exam: soft other than lower abd firm mass, distended due to ascites, mildly tender, nl bowel sounds. Pelvic exam: Large central firm mass with cul-de-sac nodularity noted Rectal: confirmatory with pelvic exam. Neurological: Grossly intact Results Result Diagram: 10/25/17 0738 01/28/17 0738 Results 24 hrs Laboratory Tests Test 01/28/17 07:38 01/28/17 14:49 White Blood Count 8.1 Red Blood Count 4.75 Hemoglobin 11.0 L Hematocrit 36.7 L Mean Corpuscular Volume 77.3 L Mean Corpuscular Hemoglobin 23.2 L Mean Corpuscular Hemoglobin Concent 30.0 L Red Cell Distribution Width 17.7 H Platelet Count 437 H Mean Platelet Volume 10.9 H Neutrophils % 71.5 Lymphocytes % 12.0 L Monocytes % 10.8 Eosinophils % 2.6 Basophils % 0.5 Nucleated Red Blood Cells % 0.0 Neutrophils # 5.8 Lymphocytes # 1.0 Monocytes # 0.9 Eosinophils # 0.2 Basophils # 0.0 Nucleated Red Blood Cells # 0.0 Sodium Level 140 Potassium Level 5.4 H Chloride Level 104 Carbon Dioxide Level 31 Anion Gap 10 # Blood Urea Nitrogen 15 Creatinine 0.84 Glucose Level 75 Uric Acid 6.0 Calcium Level 9.3 Iron Level 22 L Total Iron Binding Capacity 252 Percent Iron Saturation 9 L Ferritin 185.0 Lactate Dehydrogenase 471 CA 125 Antigen 337.0 H Vitamin B12 Level 671 Folate 2.1 L Thyroid Stimulating Hormone (TSH) 15.300 H Free Thyroxine 1.22 Medications Medications Current Medications Ondansetron HCl (Zofran Tab) 4 mg Q6H PRN PO NAUSEA AND/OR VOMITING; Start at 16:00 Acetaminophen (Tylenol Tab) 650 mg Q6H PRN PO PAIN LEVEL 1-3 OR FEVER Last administered on 01/28/17 06:20; Admin Dose 650 MG; Start 01/22/17 at 16:00 Docusate Sodium (Colace) 100 mg Q12H PRN PO CONSTIPATION; Start 01/22/17 at 16 :00 Magnesium Hydroxide (Milk Of Mag) 30 ml DAILY PRN PO CONSTIPATION Last administered on 01/23/17 23:57; Admin Dose 30 ML; Start 01/22/17 at 16:00 Bisacodyl 5 mg 5 mg DAILY PRN PO CONSTIPATION Last administered on 01/24/17 05:07; Admin Dose 5 MG; Start 01/22/17 at 16:00 Cefepime HCl (Maxipime 2gm/50 ml (Pmx)) 50 ml @ 100 mls/hr Q12 IVPB Last administered on 01/28/17 09:41; Admin Dose 100 MLS/HR; Start 01/26/17 at 14: 00 Polyethylene Glycol (Miralax) 17 gm DAILY PO Last administered on 01/28/17 09 :42; Admin Dose 17 GM; Start 01/26/17 at 15:30 Docusate Sodium (Colace) 100 mg BID PO Last administered on 01/28/17 09:41; Admin Dose 100 MG; Start 01/26/17 at 15:30 Sodium Biphosphate/ Sodium Phosphate (Fleet Enema) 133 ml DAILY PRN [place] CONSTIPATION Last administered on 01/27/17 06:17; Admin Dose 133 ML; Start at 20:30 Tolterodine Tartrate (Detrol La) 4 mg DAILY PO Last administered on 01/28/17 09:41; Admin Dose 4 MG; Start 01/27/17 at 15:30 Ketorolac Tromethamine (Toradol) 15 mg Q6H PRN IV PAIN LEVEL 8-10; Start 01/28 at 15:00; Stop 01/31/17 at 14:59 Trimethobenzamide HCl 200 mg 200 mg Q6H PRN IM NAUSEA AND/OR VOMITING; Start 01/28/17 at 13:30 Ondansetron HCl/ Sodium Chloride (Zofran Inj/NS) 54 ml @ 216 mls/hr Q6H IV Last administered on 01/28/17 18:02; Admin Dose 216 MLS/HR; Start 01/28/17 at 18:30 Morphine Sulfate (morphine) 2 mg Q2H PRN IV PAIN LEVEL 7-10; Start 01/28/17 at 14:00 RAMIREZ YBARRA MD Jan 28, 2017 22:26
[2017-01-29] VITALS (11 sets, daily range): BP systolic 105–128; BP diastolic 58–74; PULSE 95–103; RESP 18–20
[2017-01-29] MEDS: ONDANSETRON INJ 8 MG in SOD CHLORIDE 0.9% 50 ML IV SCH ×4 (01:32→18:37)
[2017-01-29] MEDS: morphine 2 MG INJ IV PRN ×3 (01:32→10:35)
[2017-01-29 06:32] LABS: BASOPHILS % 0.3 % (0.0-2.0); EOSINOPHILS # 0.1 10^3/ul (0.0-0.5); EOSINOPHILS % 0.6 % (0.0-7.0); HEMATOCRIT 34.9 % (37.0-47.0); HEMOGLOBIN 10.3 g/dl (12.0-16.0); LYMPHOCYTES # 0.9 10^3/ul (0.8-2.9); LYMPHOCYTES % 8.4 % (15.0-51.0); MEAN CORPUSCULAR HEMOGLOBIN 22.6 pg (29.0-33.0); MEAN CORPUSCULAR HGB CONC 29.5 g/dl (32.0-37.0); MEAN CORPUSCULAR VOLUME 76.5 fl (82.0-101.0); MEAN PLATELET VOLUME 11.2 fl (7.4-10.4); MONOCYTE # 0.9 10^3/ul (0.3-0.9); MONOCYTES % 8.5 % (0.0-11.0); NEUTROPHIL # 8.7 10^3/ul (1.6-7.5); NEUTROPHILS % 80.4 % (39.0-77.0); PLATELET COUNT 421 10^3/UL (140-415); RED BLOOD COUNT 4.56 10^6/ul (4.20-5.40); RED CELL DISTRIBUTION WIDTH 18.2 % (11.5-14.5); WHITE BLOOD COUNT 10.8 10^3/ul (4.8-10.8)
[2017-01-29 07:09] LABS: CREATININE 0.73 mg/dl (0.44-1.00); POTASSIUM 4.5 mmol/L (3.5-5.1)
[2017-01-29] MEDS: DOCUSATE SODIUM 100 MG CAP PO SCH ×2 (08:32→20:33)
[2017-01-29] MEDS: POLYETHYLENE GLYCOL 17 GM PACKET PO SCH (08:32)
[2017-01-29] MEDS: TOLTERODINE (SR) 4 MG CAP PO SCH (08:32)
[2017-01-29] MEDS: CEFEPIME 2GM/50 ML (PMX) 50 ML IVPB SCH ×2 (08:33→20:33)
--- NOTE | 2017-01-29 08:47 | PN ---
Date/Time of Note Date/Time of Note DATE: 01/29/17 TIME: 08:44 Assessment/Plan VTE Prophylaxis VTE Prophylaxis Intervention: LMWH Lines/Catheters [facility] Saline Lock Urinary Cath still in place: Yes Reason Cath still needed: urinary retention Assessment/Plan Chief Complaint/Hosp Course 56-year-old female with stage IV ovarian cancer presented to the hospital with abdominal pain. CT scan of the abdomen and pelvis showed bilateral hydronephrosis more severe on the right side. The patient underwent paracentesis and 4 L were drained and sent for cytology. The pathology report came out as ovarian cancer. the patient underwent cystoscopy and insertion of bilateral JJ stents , she does have an indwelling Cullen catheter that is draining well and the color of the urine is clear. The tumor is pressing on the bladder mostly around the trigone of the bladder neck. That may make it difficult for her to urinate as a matter of fact she did have urinary retention when she came in. The Cullen catheter was removed earlier and the patient was not able to urinate so a new Cullen catheter was inserted patient was seen by Dr. Ramirez and he plans to operate on her Problems: Subjective 24 Hr Interval Summary Constitutional: no complaints Eyes: no complaints ENT: no complaints Respiratory: no complaints Cardiovascular: No chest pain Gastrointestinal: pain (Left side of abdomen) Genitourinary: other (Has bilateral JJ stent) Exam/Review of Systems Vital Signs Vitals Vital Signs Date Time Temp Pulse Resp B/P Pulse Ox O2 Delivery O2 Flow Rate FiO2 01/29/17 07:41 99.4 113 20 128/74 97 01/28/17 08:00 Nasal Cannula 2.0 Intake and Output 01/28/17 01/28/17 01/29/17 15:00 23:00 07:00 Intake Total 1050 ml 398 ml Output Total 600 ml 550 ml Balance 450 ml -152 ml Exam Constitutional: alert, oriented Psych: anxiety Eyes: nl conjunctiva ENMT: nl external ears & nose Neck: supple Respiratory: normal air movement Cardiovascular: No edema Gastrointestinal: distended, firm, mass, tender Genitourinary - Female: No CVA tenderness Results Result Diagram: 01/29/17 0531 01/29/1731 Results 24 hrs Laboratory Tests Test 01/28/17 14:49 01/29/17 05:31 Free Thyroxine 1.22 White Blood Count 10.8 # Red Blood Count 4.56 Hemoglobin 10.3 L Hematocrit 34.9 L Mean Corpuscular Volume 76.5 L Mean Corpuscular Hemoglobin 22.6 L Mean Corpuscular Hemoglobin Concent 29.5 L Red Cell Distribution Width 18.2 H Platelet Count 421 H Mean Platelet Volume 11.2 H Neutrophils % 80.4 H Lymphocytes % 8.4 L Monocytes % 8.5 Eosinophils % 0.6 Basophils % 0.3 Nucleated Red Blood Cells % 0.0 Neutrophils # 8.7 H Lymphocytes # 0.9 Monocytes # 0.9 Eosinophils # 0.1 Basophils # 0.0 Nucleated Red Blood Cells # 0.0 Sodium Level 137 Potassium Level 4.5 Chloride Level 99 Carbon Dioxide Level 22 Anion Gap 21 #H Blood Urea Nitrogen 16 Creatinine 0.73 Glucose Level 59 #L Calcium Level 9.0 Medications Medications Current Medications Ondansetron HCl (Zofran Tab) 4 mg Q6H PRN PO NAUSEA AND/OR VOMITING; Start at 16:00 Acetaminophen (Tylenol Tab) 650 mg Q6H PRN PO PAIN LEVEL 1-3 OR FEVER Last administered on 01/28/17 06:20; Admin Dose 650 MG; Start 01/22/17 at 16:00 Docusate Sodium (Colace) 100 mg Q12H PRN PO CONSTIPATION; Start 01/22/17 at 16 :00 Magnesium Hydroxide (Milk Of Mag) 30 ml DAILY PRN PO CONSTIPATION Last administered on 01/23/17 23:57; Admin Dose 30 ML; Start 01/22/17 at 16:00 Bisacodyl 5 mg 5 mg DAILY PRN PO CONSTIPATION Last administered on 01/24/17 05:07; Admin Dose 5 MG; Start 01/22/17 at 16:00 Cefepime HCl (Maxipime 2gm/50 ml (Pmx)) 50 ml @ 100 mls/hr Q12 IVPB Last administered on 01/29/17 08:33; Admin Dose 100 MLS/HR; Start 01/26/17 at 14: 00 Polyethylene Glycol (Miralax) 17 gm DAILY PO Last administered on 01/29/17 08 :32; Admin Dose 17 GM; Start 01/26/17 at 15:30 Docusate Sodium (Colace) 100 mg BID PO Last administered on 01/29/17 08:32; Admin Dose 100 MG; Start 01/26/17 at 15:30 Sodium Biphosphate/ Sodium Phosphate (Fleet Enema) 133 ml DAILY PRN [place] CONSTIPATION Last administered on 01/27/17 06:17; Admin Dose 133 ML; Start at 20:30 Tolterodine Tartrate (Detrol La) 4 mg DAILY PO Last administered on 01/29/17 08:32; Admin Dose 4 MG; Start 01/27/17 at 15:30 Ketorolac Tromethamine (Toradol) 15 mg Q6H PRN IV PAIN LEVEL 8-10; Start 01/28 at 15:00; Stop 01/31/17 at 14:59 Trimethobenzamide HCl 200 mg 200 mg Q6H PRN IM NAUSEA AND/OR VOMITING; Start 01/28/17 at 13:30 Ondansetron HCl/ Sodium Chloride (Zofran Inj/NS) 54 ml @ 216 mls/hr Q6H IV Last administered on 01/29/17 05:52; Admin Dose 216 MLS/HR; Start 01/28/17 at 18:30 Morphine Sulfate (morphine) 2 mg Q2H PRN IV PAIN LEVEL 7-10 Last administered on 01/29/17 05:57; Admin Dose 2 MG; Start 01/28/17 at 14:00 EMILIE ALBERT MD Jan 29, 2017 08:47
[2017-01-29] MEDS: KETOROLAC 15 MG INJ IV PRN (12:01)
--- NOTE | 2017-01-29 12:01 | PN ---
Date/Time of Note Date/Time of Note DATE: 01/29/17 TIME: 11:57 Assessment/Plan VTE Prophylaxis VTE Prophylaxis Intervention: LMWH Lines/Catheters IV Catheter Type (from Nrsg): Saline Lock Urinary Cath still in place: Yes Reason Cath still needed: urinary retention Assessment/Plan Chief Complaint/Hosp Course Assessment/Plan: 56 yo F with known stage 4 ovarian Ca here with abd pain from ascites which are most likely malignant in origin sp para 10.19, hospitalization also notable for AUR 2/2 mass effect from ovarian ca 1. ovarian cancer - para path is malignant (adenocarcinoma), probable ovarian cancer stage IIIc likely - continue pain control, follow-up pain management recommendations, did you antiemetic medicines today - For possible surgical procedure (debulking surgery) by gynecology oncology team, follow-up their final recommendations and hematology oncology recommendations - sp ureteral stents by POD # 5 - With less positive hematuria, follow-up urology recommendations, monitor FULL CODE (affirmed with patient and son earlier this admission) pt's oncologist Dr Donis in [place] aware of this admission Problems: Subjective 24 Hr Interval Summary Free Text/Dictation Patient still with occasional pain symptoms, nausea symptoms have improved however. No acute events overnight. Exam/Review of Systems Vital Signs Vitals Vital Signs Date Time Temp Pulse Resp B/P Pulse Ox O2 Delivery O2 Flow Rate FiO2 01/29/17 11:41 98.2 96 20 109/60 97 01/29/17 08:00 Nasal Cannula 2.0 Intake and Output 01/28/17 01/28/17 01/29/17 15:00 23:00 07:00 Intake Total 1050 ml 398 ml Output Total 600 ml 550 ml Balance 450 ml -152 ml Exam nad, presently sleeping no mrg lungs clear sen In place abd slight distension no LE edema B/L Results Result Diagram: 01/29/17 0531 01/29/17 0531 Results 24 hrs Laboratory Tests Test 01/28/17 14:49 01/29/17 05:31 Free Thyroxine 1.22 White Blood Count 10.8 # Red Blood Count 4.56 Hemoglobin 10.3 L Hematocrit 34.9 L Mean Corpuscular Volume 76.5 L Mean Corpuscular Hemoglobin 22.6 L Mean Corpuscular Hemoglobin Concent 29.5 L Red Cell Distribution Width 18.2 H Platelet Count 421 H Mean Platelet Volume 11.2 H Neutrophils % 80.4 H Lymphocytes % 8.4 L Monocytes % 8.5 Eosinophils % 0.6 Basophils % 0.3 Nucleated Red Blood Cells % 0.0 Neutrophils # 8.7 H Lymphocytes # 0.9 Monocytes # 0.9 Eosinophils # 0.1 Basophils # 0.0 Nucleated Red Blood Cells # 0.0 Sodium Level 137 Potassium Level 4.5 Chloride Level 99 Carbon Dioxide Level 22 Anion Gap 21 #H Blood Urea Nitrogen 16 Creatinine 0.73 Glucose Level 59 #L Calcium Level 9.0 Medications Medications Current Medications Ondansetron HCl (Zofran Tab) 4 mg Q6H PRN PO NAUSEA AND/OR VOMITING; Start at 16:00 Acetaminophen (Tylenol Tab) 650 mg Q6H PRN PO PAIN LEVEL 1-3 OR FEVER Last administered on 01/28/17 06:20; Admin Dose 650 MG; Start 01/22/17 at 16:00 Docusate Sodium (Colace) 100 mg Q12H PRN PO CONSTIPATION; Start 01/22/17 at 16 :00 Magnesium Hydroxide (Milk Of Mag) 30 ml DAILY PRN PO CONSTIPATION Last administered on 01/23/17 23:57; Admin Dose 30 ML; Start 01/22/17 at 16:00 Bisacodyl 5 mg 5 mg DAILY PRN PO CONSTIPATION Last administered on 01/24/17 05:07; Admin Dose 5 MG; Start 01/22/17 at 16:00 Cefepime HCl (Maxipime 2gm/50 ml (Pmx)) 50 ml @ 100 mls/hr Q12 IVPB Last administered on 01/29/17 08:33; Admin Dose 100 MLS/HR; Start 01/26/17 at 14: 00 Polyethylene Glycol (Miralax) 17 gm DAILY PO Last administered on 01/29/17 08 :32; Admin Dose 17 GM; Start 01/26/17 at 15:30 Docusate Sodium (Colace) 100 mg BID PO Last administered on 01/29/17 08:32; Admin Dose 100 MG; Start 01/26/17 at 15:30 Sodium Biphosphate/ Sodium Phosphate (Fleet Enema) 133 ml DAILY PRN [place] CONSTIPATION Last administered on 01/27/17 06:17; Admin Dose 133 ML; Start at 20:30 Tolterodine Tartrate (Detrol La) 4 mg DAILY PO Last administered on 01/29/17 08:32; Admin Dose 4 MG; Start 01/27/17 at 15:30 Ketorolac Tromethamine (Toradol) 15 mg Q6H PRN IV PAIN LEVEL 8-10; Start 01/28 at 15:00; Stop 01/31/17 at 14:59 Trimethobenzamide HCl 200 mg 200 mg Q6H PRN IM NAUSEA AND/OR VOMITING; Start 01/28/17 at 13:30 Ondansetron HCl/ Sodium Chloride (Zofran Inj/NS) 54 ml @ 216 mls/hr Q6H IV Last administered on 01/29/17 05:52; Admin Dose 216 MLS/HR; Start 01/28/17 at 18:30 Morphine Sulfate (morphine) 2 mg Q2H PRN IV PAIN LEVEL 7-10 Last administered on 01/29/17 10:35; Admin Dose 2 MG; Start 01/28/17 at 14:00 KENTRELL MACIAS Jan 29, 2017 12:01
--- NOTE | 2017-01-29 18:35 | CONS ---
Date/Time of Note Date/Time of Note DATE: 01/29/17 TIME: 18:35 Assessment/Plan Assessment/Plan Chief Complaint/Hosp Course ADVANCED OVARIAN CANCER WITH MALIGNANT ASCITES AND PERITONEAL carcinomatosis Large conglomerate pelvic mass inseparable from the uterus, sigmoid colon and rectum containing clumps of calcification suspicious for calcified fibroids and containing cystic areas. Large amount of free intraperitoneal fluid measuring 25 HU with caking of the omentum compatible with carcinomatosis. Centralization of bowel without evidence of bowel obstruction. Moderately severe right hydronephrosis and hydroureter to the level of the pelvic mass. There is moderate left pelvocaliectasis without ureteral dilatation. The bladder is quite distended with urine. POST cystoscopy and insertion of bilateral JJ stents CT CHEST - EDOUARD, EXCEPT SMALL L PLEURAL EFFUSION CA 125- 337 GYNEONC EVAL noted plan- debulking surgery ANEMIA, MICROCYTOSIS complete ANEMIA W-UP Problems: Consultation Date/Type/Reason Admit Date/Time Jan 22, 2017 at 14:12 Initial Consult Date 01/27/17 Type of Consultation: [facility] Referring Provider: KNETRELL MACIAS 24 HR Interval Summary Free Text/Dictation ALL NOTED D/W RN Exam/Review of Systems Vital Signs Vitals Vital Signs Date Time Temp Pulse Resp B/P Pulse Ox O2 Delivery O2 Flow Rate FiO2 01/29/17 16:10 95 01/29/17 15:28 97.9 20 106/69 98 01/29/17 08:00 Nasal Cannula 2.0 Intake and Output 01/28/17 01/28/17 01/29/17 15:00 23:00 07:00 Intake Total 1050 ml 398 ml Output Total 600 ml 550 ml Balance 450 ml -152 ml Exam General: Alert. HEENT: Pupils are equal, round, reactive to light and accommodation. Neck: Supple with no masses of lymphadenopathy. Breast: Deferred due to recent examination and responsibility of primary care physician. Chest: Clear to auscultation and percussion with no rales, rhonchi, or wheeze. Heart: Normal rhythm with no murmur. Abdominal Exam: soft other than lower abd firm mass, distended due to ascites, mildly tender, nl bowel sounds. Pelvic exam: Large central firm mass with cul-de-sac nodularity noted Rectal: confirmatory with pelvic exam. Neurological: Grossly intact Results Result Diagram: 10/26/17 0531 01/29/17 0531 Results 24 hrs Laboratory Tests Test 01/29/17 05:31 White Blood Count 10.8 # Red Blood Count 4.56 Hemoglobin 10.3 L Hematocrit 34.9 L Mean Corpuscular Volume 76.5 L Mean Corpuscular Hemoglobin 22.6 L Mean Corpuscular Hemoglobin Concent 29.5 L Red Cell Distribution Width 18.2 H Platelet Count 421 H Mean Platelet Volume 11.2 H Neutrophils % 80.4 H Lymphocytes % 8.4 L Monocytes % 8.5 Eosinophils % 0.6 Basophils % 0.3 Nucleated Red Blood Cells % 0.0 Neutrophils # 8.7 H Lymphocytes # 0.9 Monocytes # 0.9 Eosinophils # 0.1 Basophils # 0.0 Nucleated Red Blood Cells # 0.0 Sodium Level 137 Potassium Level 4.5 Chloride Level 99 Carbon Dioxide Level 22 Anion Gap 21 #H Blood Urea Nitrogen 16 Creatinine 0.73 Glucose Level 59 #L Calcium Level 9.0 Medications Medications Current Medications Ondansetron HCl (Zofran Tab) 4 mg Q6H PRN PO NAUSEA AND/OR VOMITING; Start at 16:00 Acetaminophen (Tylenol Tab) 650 mg Q6H PRN PO PAIN LEVEL 1-3 OR FEVER Last administered on 01/28/17 06:20; Admin Dose 650 MG; Start 01/22/17 at 16:00 Docusate Sodium (Colace) 100 mg Q12H PRN PO CONSTIPATION; Start 01/22/17 at 16 :00 Magnesium Hydroxide (Milk Of Mag) 30 ml DAILY PRN PO CONSTIPATION Last administered on 01/23/17 23:57; Admin Dose 30 ML; Start 01/22/17 at 16:00 Bisacodyl 5 mg 5 mg DAILY PRN PO CONSTIPATION Last administered on 01/24/17 05:07; Admin Dose 5 MG; Start 01/22/17 at 16:00 Cefepime HCl (Maxipime 2gm/50 ml (Pmx)) 50 ml @ 100 mls/hr Q12 IVPB Last administered on 01/29/17 08:33; Admin Dose 100 MLS/HR; Start 01/26/17 at 14: 00 Polyethylene Glycol (Miralax) 17 gm DAILY PO Last administered on 01/29/17 08 :32; Admin Dose 17 GM; Start 01/26/17 at 15:30 Docusate Sodium (Colace) 100 mg BID PO Last administered on 01/29/17 08:32; Admin Dose 100 MG; Start 01/26/17 at 15:30 Sodium Biphosphate/ Sodium Phosphate (Fleet Enema) 133 ml DAILY PRN [place] CONSTIPATION Last administered on 01/27/17 06:17; Admin Dose 133 ML; Start at 20:30 Tolterodine Tartrate (Detrol La) 4 mg DAILY PO Last administered on 01/29/17 08:32; Admin Dose 4 MG; Start 01/27/17 at 15:30 Ketorolac Tromethamine (Toradol) 15 mg Q6H PRN IV PAIN LEVEL 8-10 Last administered on 01/29/17 12:01; Admin Dose 15 MG; Start 01/28/17 at 15:00; Stop 01/31/17 at 14:59 Trimethobenzamide HCl 200 mg 200 mg Q6H PRN IM NAUSEA AND/OR VOMITING; Start 01/28/17 at 13:30 Ondansetron HCl/ Sodium Chloride (Zofran Inj/NS) 54 ml @ 216 mls/hr Q6H IV Last administered on 01/29/17 12:01; Admin Dose 216 MLS/HR; Start 01/28/17 at 18:30 Morphine Sulfate (morphine) 2 mg Q2H PRN IV PAIN LEVEL 7-10 Last administered on 01/29/17 10:35; Admin Dose 2 MG; Start 01/28/17 at 14:00 RAMIREZ YBARRA MD Jan 29, 2017 18:35
[2017-01-30] VITALS (13 sets, daily range): BP systolic 101–116; BP diastolic 59–74; PULSE 87–108; RESP 17–20
[2017-01-30] MEDS: ONDANSETRON INJ 8 MG in SOD CHLORIDE 0.9% 50 ML IV SCH ×5 (00:52→23:51)
[2017-01-30] MEDS: morphine 2 MG INJ IV PRN ×2 (05:20→11:30)
[2017-01-30] MEDS: TOLTERODINE (SR) 4 MG CAP PO SCH (08:45)
[2017-01-30] MEDS: CEFEPIME 2GM/50 ML (PMX) 50 ML IVPB SCH ×2 (08:45→21:17)
[2017-01-30] MEDS: POLYETHYLENE GLYCOL 17 GM PACKET PO SCH (08:45)
[2017-01-30] MEDS: DOCUSATE SODIUM 100 MG CAP PO SCH ×2 (08:45→21:17)
[2017-01-30 08:53] LABS: BASOPHILS % 0.4 % (0.0-2.0); EOSINOPHILS # 0.2 10^3/ul (0.0-0.5); HEMATOCRIT 33.9 % (37.0-47.0); HEMOGLOBIN 10.1 g/dl (12.0-16.0); LYMPHOCYTES # 0.8 10^3/ul (0.8-2.9); MEAN CORPUSCULAR HEMOGLOBIN 23.1 pg (29.0-33.0); MEAN CORPUSCULAR HGB CONC 29.8 g/dl (32.0-37.0); MEAN CORPUSCULAR VOLUME 77.6 fl (82.0-101.0); MEAN PLATELET VOLUME 11.6 fl (7.4-10.4); MONOCYTE # 0.9 10^3/ul (0.3-0.9); MONOCYTES % 12.2 % (0.0-11.0); NEUTROPHIL # 5.2 10^3/ul (1.6-7.5); NEUTROPHILS % 70.9 % (39.0-77.0); PLATELET COUNT 415 10^3/UL (140-415); RED BLOOD COUNT 4.37 10^6/ul (4.20-5.40); RED CELL DISTRIBUTION WIDTH 17.8 % (11.5-14.5); WHITE BLOOD COUNT 7.3 10^3/ul (4.8-10.8)
[2017-01-30 09:21] LABS: CALCIUM 8.9 mg/dl (8.4-10.2); CREATININE 0.73 mg/dl (0.44-1.00); POTASSIUM 4.8 mmol/L (3.5-5.1)
--- NOTE | 2017-01-30 12:35 | PN ---
Date/Time of Note Date/Time of Note DATE: 01/30/17 TIME: 12:34 Assessment/Plan VTE Prophylaxis VTE Prophylaxis Intervention: LMWH Lines/Catheters IV Catheter Type (from Nrsg): Saline Lock Urinary Cath still in place: Yes Reason Cath still needed: urinary retention Assessment/Plan Chief Complaint/Hosp Course Assessment/Plan: 56 yo F with known stage 4 ovarian Ca here with abd pain from ascites which are most likely malignant in origin sp para 10.19, hospitalization also notable for AUR 2/2 mass effect from ovarian ca 1. ovarian cancer - para path is malignant (adenocarcinoma), probable ovarian cancer stage IIIc likely - continue pain control, follow-up pain management recommendations, did you antiemetic medicines today - For possible surgical procedure (debulking surgery) by gynecology oncology team, follow-up their final recommendations and hematology oncology recommendations -no surgical time has been scheduled yet - sp ureteral stents by POD # 6 - With less positive hematuria, follow-up urology recommendations, monitor FULL CODE (affirmed with patient and son earlier this admission) pt's oncologist Dr Donis in [place] aware of this admission Problems: Subjective 24 Hr Interval Summary Free Text/Dictation Patient still with occasional abdominal pain, less nausea symptoms, tolerating diet. Exam/Review of Systems Vital Signs Vitals Vital Signs Date Time Temp Pulse Resp B/P Pulse Ox O2 Delivery O2 Flow Rate FiO2 01/30/17 12:15 91 01/30/17 11:52 98.0 17 101/59 99 01/29/17 20:00 Nasal Cannula 2.0 Intake and Output 01/29/17 01/29/17 01/30/17 15:00 23:00 07:00 Intake Total 1010 ml 728 ml Output Total 800 ml 450 ml Balance 210 ml 278 ml Exam nad, presently sleeping no mrg lungs clear sen In place abd slight distension no LE edema B/L Results Result Diagram: 01/30/17 0701/30/17 0721 Results 24 hrs Laboratory Tests Test 01/30/17 07:21 White Blood Count 7.3 # Red Blood Count 4.37 Hemoglobin 10.1 L Hematocrit 33.9 L Mean Corpuscular Volume 77.6 L Mean Corpuscular Hemoglobin 23.1 L Mean Corpuscular Hemoglobin Concent 29.8 L Red Cell Distribution Width 17.8 H Platelet Count 415 Mean Platelet Volume 11.6 H Neutrophils % 70.9 Lymphocytes % 11.0 L Monocytes % 12.2 H Eosinophils % 3.0 Basophils % 0.4 Nucleated Red Blood Cells % 0.0 Neutrophils # 5.2 Lymphocytes # 0.8 Monocytes # 0.9 Eosinophils # 0.2 Basophils # 0.0 Nucleated Red Blood Cells # 0.0 Sodium Level 136 Potassium Level 4.8 Chloride Level 100 Carbon Dioxide Level 31 Anion Gap 10 # Blood Urea Nitrogen 13 Creatinine 0.73 Glucose Level 77 Calcium Level 8.9 Medications Medications Current Medications Ondansetron HCl (Zofran Tab) 4 mg Q6H PRN PO NAUSEA AND/OR VOMITING; Start at 16:00 Acetaminophen (Tylenol Tab) 650 mg Q6H PRN PO PAIN LEVEL 1-3 OR FEVER Last administered on 01/28/17 06:20; Admin Dose 650 MG; Start 01/22/17 at 16:00 Docusate Sodium (Colace) 100 mg Q12H PRN PO CONSTIPATION; Start 01/22/17 at 16 :00 Magnesium Hydroxide (Milk Of Mag) 30 ml DAILY PRN PO CONSTIPATION Last administered on 01/23/17 23:57; Admin Dose 30 ML; Start 01/22/17 at 16:00 Bisacodyl 5 mg 5 mg DAILY PRN PO CONSTIPATION Last administered on 01/24/17 05:07; Admin Dose 5 MG; Start 01/22/17 at 16:00 Cefepime HCl (Maxipime 2gm/50 ml (Pmx)) 50 ml @ 100 mls/hr Q12 IVPB Last administered on 01/30/17 08:45; Admin Dose 100 MLS/HR; Start 01/26/17 at 14: 00 Polyethylene Glycol (Miralax) 17 gm DAILY PO Last administered on 01/30/17 08 :45; Admin Dose 17 GM; Start 01/26/17 at 15:30 Docusate Sodium (Colace) 100 mg BID PO Last administered on 01/30/17 08:45; Admin Dose 100 MG; Start 01/26/17 at 15:30 Sodium Biphosphate/ Sodium Phosphate (Fleet Enema) 133 ml DAILY PRN [place] CONSTIPATION Last administered on 01/27/17 06:17; Admin Dose 133 ML; Start at 20:30 Tolterodine Tartrate (Detrol La) 4 mg DAILY PO Last administered on 01/30/17 08:45; Admin Dose 4 MG; Start 01/27/17 at 15:30 Ketorolac Tromethamine (Toradol) 15 mg Q6H PRN IV PAIN LEVEL 8-10 Last administered on 01/29/17 12:01; Admin Dose 15 MG; Start 01/28/17 at 15:00; Stop 01/31/17 at 14:59 Trimethobenzamide HCl 200 mg 200 mg Q6H PRN IM NAUSEA AND/OR VOMITING; Start 01/28/17 at 13:30 Ondansetron HCl/ Sodium Chloride (Zofran Inj/NS) 54 ml @ 216 mls/hr Q6H IV Last administered on 01/30/17 05:37; Admin Dose 216 MLS/HR; Start 01/28/17 at 18:30 Morphine Sulfate 2 mg 2 mg Q2H PRN IV PAIN LEVEL 7-10 Last administered on 11:30; Admin Dose 2 MG; Start 01/28/17 at 14:00 Ferric Sodium Gluconate Complex/ Sodium Chloride (Ferrlecit/NS) 110 ml @ 100 mls/hr ONCE ONCE IVPB ; Start 01/30/17 at 14:00; Stop 01/30/17 at 15:05 KENTRELL MACIAS Jan 30, 2017 12:35
--- NOTE | 2017-01-30 12:49 | CONS ---
Date/Time of Note Date/Time of Note DATE: 01/30/17 TIME: 12:48 Assessment/Plan Assessment/Plan Chief Complaint/Hosp Course ADVANCED OVARIAN CANCER WITH MALIGNANT ASCITES AND PERITONEAL carcinomatosis Large conglomerate pelvic mass inseparable from the uterus, sigmoid colon and rectum containing clumps of calcification suspicious for calcified fibroids and containing cystic areas. Large amount of free intraperitoneal fluid measuring 25 HU with caking of the omentum compatible with carcinomatosis. Centralization of bowel without evidence of bowel obstruction. Moderately severe right hydronephrosis and hydroureter to the level of the pelvic mass. There is moderate left pelvocaliectasis without ureteral dilatation. The bladder is quite distended with urine. POST cystoscopy and insertion of bilateral JJ stents CT CHEST - EDOUARD, EXCEPT SMALL L PLEURAL EFFUSION CHECK CA 125 GYNEONC EVAL noted plan- debulking surgery ANEMIA, MICROCYTOSIS complete ANEMIA W-UP Problems: Consultation Date/Type/Reason Admit Date/Time Jan 22, 2017 at 14:12 Initial Consult Date 01/27/17 [facility] Referring Provider: KENTRELL MACIAS 24 HR Interval Summary Free Text/Dictation all noted no new events Exam/Review of Systems Vital Signs Vitals Vital Signs Date Time Temp Pulse Resp B/P Pulse Ox O2 Delivery O2 Flow Rate FiO2 01/30/17 12:15 91 01/30/17 11:52 98.0 17 101/59 99 01/29/17 20:00 Nasal Cannula 2.0 Intake and Output 01/29/17 01/29/17 01/30/17 15:00 23:00 07:00 Intake Total 1010 ml 728 ml Output Total 800 ml 450 ml Balance 210 ml 278 ml Exam General: Alert. HEENT: Pupils are equal, round, reactive to light and accommodation. Neck: Supple with no masses of lymphadenopathy. Breast: Deferred due to recent examination and responsibility of primary care physician. Chest: Clear to auscultation and percussion with no rales, rhonchi, or wheeze. Heart: Normal rhythm with no murmur. Abdominal Exam: soft other than lower abd firm mass, distended due to ascites, mildly tender, nl bowel sounds. Pelvic exam: Large central firm mass with cul-de-sac nodularity noted Rectal: confirmatory with pelvic exam. Neurological: Grossly intact Results Result Diagram: 01/30/17 0721 01/30/17 0721 Results 24 hrs Laboratory Tests Test 01/30/17 07:21 White Blood Count 7.3 # Red Blood Count 4.37 Hemoglobin 10.1 L Hematocrit 33.9 L Mean Corpuscular Volume 77.6 L Mean Corpuscular Hemoglobin 23.1 L Mean Corpuscular Hemoglobin Concent 29.8 L Red Cell Distribution Width 17.8 H Platelet Count 415 Mean Platelet Volume 11.6 H Neutrophils % 70.9 Lymphocytes % 11.0 L Monocytes % 12.2 H Eosinophils % 3.0 Basophils % 0.4 Nucleated Red Blood Cells % 0.0 Neutrophils # 5.2 Lymphocytes # 0.8 Monocytes # 0.9 Eosinophils # 0.2 Basophils # 0.0 Nucleated Red Blood Cells # 0.0 Sodium Level 136 Potassium Level 4.8 Chloride Level 100 Carbon Dioxide Level 31 Anion Gap 10 # Blood Urea Nitrogen 13 Creatinine 0.73 Glucose Level 77 Calcium Level 8.9 Medications Medications Current Medications Ondansetron HCl (Zofran Tab) 4 mg Q6H PRN PO NAUSEA AND/OR VOMITING; Start at 16:00 Acetaminophen (Tylenol Tab) 650 mg Q6H PRN PO PAIN LEVEL 1-3 OR FEVER Last administered on 01/28/17 06:20; Admin Dose 650 MG; Start 01/22/17 at 16:00 Docusate Sodium (Colace) 100 mg Q12H PRN PO CONSTIPATION; Start 01/22/17 at 16 :00 Magnesium Hydroxide (Milk Of Mag) 30 ml DAILY PRN PO CONSTIPATION Last administered on 01/23/17 23:57; Admin Dose 30 ML; Start 01/22/17 at 16:00 Bisacodyl 5 mg 5 mg DAILY PRN PO CONSTIPATION Last administered on 01/24/17 05:07; Admin Dose 5 MG; Start 01/22/17 at 16:00 Cefepime HCl (Maxipime 2gm/50 ml (Pmx)) 50 ml @ 100 mls/hr Q12 IVPB Last administered on 01/30/17 08:45; Admin Dose 100 MLS/HR; Start 01/26/17 at 14: 00 Polyethylene Glycol (Miralax) 17 gm DAILY PO Last administered on 01/30/17 08 :45; Admin Dose 17 GM; Start 01/26/17 at 15:30 Docusate Sodium (Colace) 100 mg BID PO Last administered on 01/30/17 08:45; Admin Dose 100 MG; Start 01/26/17 at 15:30 Sodium Biphosphate/ Sodium Phosphate (Fleet Enema) 133 ml DAILY PRN [place] CONSTIPATION Last administered on 01/27/17 06:17; Admin Dose 133 ML; Start at 20:30 Tolterodine Tartrate (Detrol La) 4 mg DAILY PO Last administered on 01/30/17 08:45; Admin Dose 4 MG; Start 01/27/17 at 15:30 Ketorolac Tromethamine (Toradol) 15 mg Q6H PRN IV PAIN LEVEL 8-10 Last administered on 01/29/17 12:01; Admin Dose 15 MG; Start 01/28/17 at 15:00; Stop 01/31/17 at 14:59 Trimethobenzamide HCl 200 mg 200 mg Q6H PRN IM NAUSEA AND/OR VOMITING; Start 01/28/17 at 13:30 Ondansetron HCl/ Sodium Chloride (Zofran Inj/NS) 54 ml @ 216 mls/hr Q6H IV Last administered on 01/30/17 05:37; Admin Dose 216 MLS/HR; Start 01/28/17 at 18:30 Morphine Sulfate 2 mg 2 mg Q2H PRN IV PAIN LEVEL 7-10 Last administered on 11:30; Admin Dose 2 MG; Start 01/28/17 at 14:00 Ferric Sodium Gluconate Complex/ Sodium Chloride (Ferrlecit/NS) 110 ml @ 100 mls/hr ONCE ONCE IVPB ; Start 01/30/17 at 14:00; Stop 01/30/17 at 15:05 RAMIREZ YBARRA MD Jan 30, 2017 12:49
[2017-01-30] MEDS ORDERED: SOD FERRIC GLUC COMPLX 125 MG in SOD CHLORIDE 0.9% 100 ML IVPB ONE (14:00)
[2017-01-31] VITALS (11 sets, daily range): BP systolic 105–128; BP diastolic 63–72; PULSE 87–104; RESP 17–20
[2017-01-31] MEDS: ONDANSETRON INJ 8 MG in SOD CHLORIDE 0.9% 50 ML IV SCH (06:07)
[2017-01-31 06:27] LABS: BASOPHILS % 0.2 % (0.0-2.0); EOSINOPHILS # 0.1 10^3/ul (0.0-0.5); EOSINOPHILS % 2.5 % (0.0-7.0); HEMOGLOBIN 10.6 g/dl (12.0-16.0); LYMPHOCYTES # 0.7 10^3/ul (0.8-2.9); LYMPHOCYTES % 12.1 % (15.0-51.0); MEAN CORPUSCULAR HEMOGLOBIN 23.2 pg (29.0-33.0); MEAN CORPUSCULAR HGB CONC 30.3 g/dl (32.0-37.0); MEAN CORPUSCULAR VOLUME 76.6 fl (82.0-101.0); MEAN PLATELET VOLUME 10.8 fl (7.4-10.4); MONOCYTE # 0.6 10^3/ul (0.3-0.9); MONOCYTES % 11.1 % (0.0-11.0); NEUTROPHIL # 4.1 10^3/ul (1.6-7.5); NEUTROPHILS % 72.2 % (39.0-77.0); PLATELET COUNT 452 10^3/UL (140-415); RED BLOOD COUNT 4.57 10^6/ul (4.20-5.40); RED CELL DISTRIBUTION WIDTH 18.2 % (11.5-14.5); WHITE BLOOD COUNT 5.7 10^3/ul (4.8-10.8)
[2017-01-31 07:24] LABS: CREATININE 0.68 mg/dl (0.44-1.00); POTASSIUM 4.5 mmol/L (3.5-5.1)
[2017-01-31 07:30] LABS: MAGNESIUM 1.5 mg/dl (1.7-2.5); PHOSPHORUS 3.9 mg/dl (2.5-4.9)
[2017-01-31] MEDS: KETOROLAC 15 MG INJ IV PRN (07:38)
[2017-01-31] MEDS: MAGNESIUM HYDROXIDE 30ML CUP PO PRN (07:38)
[2017-01-31] MEDS: DOCUSATE SODIUM 100 MG CAP PO SCH ×2 (08:19→21:43)
[2017-01-31] MEDS: POLYETHYLENE GLYCOL 17 GM PACKET PO SCH (08:19)
[2017-01-31] MEDS: TOLTERODINE (SR) 4 MG CAP PO SCH (08:19)
[2017-01-31] MEDS: CEFEPIME 2GM/50 ML (PMX) 50 ML IVPB SCH ×2 (08:21→21:43)
[2017-01-31] MEDS ORDERED: MAGNESIUM SULFATE 2 GM/50 ML 50 ML IVPB ONE (12:00)
[2017-01-31] MEDS ORDERED: ONDANSETRON INJ 8 MG in DEXTROSE 5% 50 ML IV PRN (12:00)
--- NOTE | 2017-01-31 12:02 | PN ---
Date/Time of Note Date/Time of Note DATE: 01/31/17 TIME: 12:00 Assessment/Plan VTE Prophylaxis VTE Prophylaxis Intervention: LMWH Lines/Catheters IV Catheter Type (from Nrsg): Saline Lock Urinary Cath still in place: Yes Reason Cath still needed: urinary retention Assessment/Plan Chief Complaint/Hosp Course Assessment/Plan: 56 yo F with known stage 4 ovarian Ca here with abd pain from ascites which are most likely malignant in origin sp para 10.19, hospitalization also notable for AUR 2/2 mass effect from ovarian ca 1. ovarian cancer - para path is malignant (adenocarcinoma), probable ovarian cancer stage IIIc likely - continue pain control, follow-up pain management recommendations, did you antiemetic medicines today - For possible surgical procedure (debulking surgery) by gynecology oncology team, follow-up their final recommendations and hematology oncology recommendations -no surgical time has been scheduled yet - sp ureteral stents by POD # 7 - With less positive hematuria, follow-up urology recommendations, monitor FULL CODE (affirmed with patient and son earlier this admission) pt's oncologist Dr Donis in [place] aware of this admission Problems: Subjective 24 Hr Interval Summary Free Text/Dictation Patient had bowel movement, no acute events overnight. Slightly less nausea and abdominal pain symptoms presently. Exam/Review of Systems Vital Signs Vitals Vital Signs Date Time Temp Pulse Resp B/P Pulse Ox O2 Delivery O2 Flow Rate FiO2 01/31/17 11:48 97.6 96 18 112/68 100 01/31/17 04:08 Nasal Cannula 2.0 Intake and Output 01/30/17 01/30/17 01/31/17 15:00 23:00 07:00 Intake Total 104 ml 804 ml 400 ml Output Total 700 ml 900 ml Balance 104 ml 104 ml -500 ml Exam nad, presently sleeping no mrg lungs clear sen In place abd slight distension no LE edema B/L Results Result Diagram: 01/31/17 0602 01/31/17 0602 Results 24 hrs Laboratory Tests Test 01/31/17 06:02 White Blood Count 5.7 # Red Blood Count 4.57 Hemoglobin 10.6 L Hematocrit 35.0 L Mean Corpuscular Volume 76.6 L Mean Corpuscular Hemoglobin 23.2 L Mean Corpuscular Hemoglobin Concent 30.3 L Red Cell Distribution Width 18.2 H Platelet Count 452 H Mean Platelet Volume 10.8 H Neutrophils % 72.2 Lymphocytes % 12.1 L Monocytes % 11.1 H Eosinophils % 2.5 Basophils % 0.2 Nucleated Red Blood Cells % 0.0 Neutrophils # 4.1 Lymphocytes # 0.7 L Monocytes # 0.6 Eosinophils # 0.1 Basophils # 0.0 Nucleated Red Blood Cells # 0.0 Sodium Level 138 Potassium Level 4.5 Chloride Level 102 Carbon Dioxide Level 28 Anion Gap 13 Blood Urea Nitrogen 10 Creatinine 0.68 Glucose Level 86 Calcium Level 9.0 Phosphorus Level 3.9 Magnesium Level 1.5 L Medications Medications Current Medications Ondansetron HCl (Zofran Tab) 4 mg Q6H PRN PO NAUSEA AND/OR VOMITING; Start at 16:00 Acetaminophen (Tylenol Tab) 650 mg Q6H PRN PO PAIN LEVEL 1-3 OR FEVER Last administered on 01/28/17 06:20; Admin Dose 650 MG; Start 01/22/17 at 16:00 Docusate Sodium (Colace) 100 mg Q12H PRN PO CONSTIPATION; Start 01/22/17 at 16 :00 Magnesium Hydroxide (Milk Of Mag) 30 ml DAILY PRN PO CONSTIPATION Last administered on 01/31/17 07:38; Admin Dose 30 ML; Start 01/22/17 at 16:00 Bisacodyl 5 mg 5 mg DAILY PRN PO CONSTIPATION Last administered on 01/24/17 05:07; Admin Dose 5 MG; Start 01/22/17 at 16:00 Cefepime HCl (Maxipime 2gm/50 ml (Pmx)) 50 ml @ 100 mls/hr Q12 IVPB Last administered on 01/31/17 08:21; Admin Dose 100 MLS/HR; Start 01/26/17 at 14: 00 Polyethylene Glycol (Miralax) 17 gm DAILY PO Last administered on 01/31/17 08 :19; Admin Dose 17 GM; Start 01/26/17 at 15:30 Docusate Sodium (Colace) 100 mg BID PO Last administered on 01/31/17 08:19; Admin Dose 100 MG; Start 01/26/17 at 15:30 Sodium Biphosphate/ Sodium Phosphate (Fleet Enema) 133 ml DAILY PRN [place] CONSTIPATION Last administered on 01/27/17 06:17; Admin Dose 133 ML; Start at 20:30 Tolterodine Tartrate (Detrol La) 4 mg DAILY PO Last administered on 01/31/17 08:19; Admin Dose 4 MG; Start 01/27/17 at 15:30 Ketorolac Tromethamine (Toradol) 15 mg Q6H PRN IV PAIN LEVEL 8-10 Last administered on 01/31/17 07:38; Admin Dose 15 MG; Start 01/28/17 at 15:00; Stop 01/31/17 at 14:59 Trimethobenzamide HCl 200 mg 200 mg Q6H PRN IM NAUSEA AND/OR VOMITING; Start 01/28/17 at 13:30 Ondansetron HCl/ Sodium Chloride (Zofran Inj/NS) 54 ml @ 216 mls/hr Q6H IV Last administered on 01/31/17 06:07; Admin Dose 216 MLS/HR; Start 01/28/17 at 18:30 Morphine Sulfate 2 mg 2 mg Q2H PRN IV PAIN LEVEL 7-10 Last administered on 11:30; Admin Dose 2 MG; Start 01/28/17 at 14:00 Magnesium Sulfate (Magnesium Sulfate 2 Gm/50 ml) 50 ml @ 25 mls/hr ONCE ONCE IVPB ; Start 01/31/17 at 12:00; Stop 01/31/17 at 13:59 KENTRELL MACIAS Jan 31, 2017 12:02
--- NOTE | 2017-01-31 13:26 | PN ---
Date/Time of Note Date/Time of Note DATE: 01/31/17 TIME: 13:20 Assessment/Plan VTE Prophylaxis VTE Prophylaxis Intervention: ambulation, SCD's Lines/Catheters IV [facility] Type [facility]from [facility] Saline Lock Urinary Cath still in place: Yes Reason Cath still needed: urinary retention Assessment/Plan Chief Complaint/Hosp Course 56-year-old female with stage IV ovarian cancer presented to the hospital with abdominal pain. CT scan of the abdomen and pelvis showed bilateral hydronephrosis more severe on the right side. The patient underwent paracentesis and 4 L were drained and sent for cytology. The pathology report came out as ovarian cancer. the patient underwent cystoscopy and insertion of bilateral JJ stents , she does have an indwelling Cullen catheter that is draining well and the color of the urine is blood-tinged. The tumor is pressing on the bladder mostly around the trigone of the bladder neck. That may make it difficult for her to urinate as a matter of fact she did have urinary retention when she came in. The Cullen catheter was removed earlier and the patient was not able to urinate so a new Cullen catheter was inserted. Patient was seen by Dr. Ramirez and he plans to operate on her Problems: Subjective 24 Hr Interval Summary Constitutional: no complaints Eyes: no complaints ENT: no complaints Respiratory: no complaints Cardiovascular: No chest pain Gastrointestinal: pain (Left side of abdomen) Genitourinary: other (Cullen catheter draining blood-tinged urine.) Neurologic: other (Patient is having hard time remembering. She remembers me talking to her about replacing the JJ stents in the future but she does not remember that she does have the JJ stents) Exam/Review of Systems Vital Signs Vitals Vital Signs Date Time Temp Pulse Resp B/P Pulse Ox O2 Delivery O2 Flow Rate FiO2 01/31/17 12:17 100 01/31/17 11:48 97.6 18 112/68 100 01/31/17 04:08 Nasal Cannula 2.0 Intake and Output 01/30/17 01/30/17 01/31/17 14:59 22:59 06:59 Intake Total 104 ml 804 ml 400 ml Output Total 700 ml 900 ml Balance 104 ml 104 ml -500 ml Exam Constitutional: alert, other (She appears to be more comfortable today) Psych: nl mood/affect Eyes: nl conjunctiva ENMT: nl external ears & nose Neck: supple Respiratory: normal air movement Cardiovascular: No edema Gastrointestinal: ascites, mass Genitourinary - Female: other (Cullen catheter draining blood-tinged urine) Results Result Diagram: 01/31/17 0602 01/31/17 0602 Results 24 hrs Laboratory Tests Test 01/31/17 06:02 White Blood Count 5.7 # Red Blood Count 4.57 Hemoglobin 10.6 L Hematocrit 35.0 L Mean Corpuscular Volume 76.6 L Mean Corpuscular Hemoglobin 23.2 L Mean Corpuscular Hemoglobin Concent 30.3 L Red Cell Distribution Width 18.2 H Platelet Count 452 H Mean Platelet Volume 10.8 H Neutrophils % 72.2 Lymphocytes % 12.1 L Monocytes % 11.1 H Eosinophils % 2.5 Basophils % 0.2 Nucleated Red Blood Cells % 0.0 Neutrophils # 4.1 Lymphocytes # 0.7 L Monocytes # 0.6 Eosinophils # 0.1 Basophils # 0.0 Nucleated Red Blood Cells # 0.0 Sodium Level 138 Potassium Level 4.5 Chloride Level 102 Carbon Dioxide Level 28 Anion Gap 13 Blood Urea Nitrogen 10 Creatinine 0.68 Glucose Level 86 Calcium Level 9.0 Phosphorus Level 3.9 Magnesium Level 1.5 L Medications Medications Current Medications Ondansetron HCl (Zofran Tab) 4 mg Q6H PRN PO NAUSEA AND/OR VOMITING; Start at 16:00 Acetaminophen (Tylenol Tab) 650 mg Q6H PRN PO PAIN LEVEL 1-3 OR FEVER Last administered on 01/28/17 06:20; Admin Dose 650 MG; Start 01/22/17 at 16:00 Docusate Sodium (Colace) 100 mg Q12H PRN PO CONSTIPATION; Start 01/22/17 at 16 :00 Magnesium Hydroxide (Milk Of Mag) 30 ml DAILY PRN PO CONSTIPATION Last administered on 01/31/17 07:38; Admin Dose 30 ML; Start 01/22/17 at 16:00 Bisacodyl 5 mg 5 mg DAILY PRN PO CONSTIPATION Last administered on 01/24/17 05:07; Admin Dose 5 MG; Start 01/22/17 at 16:00 Cefepime HCl (Maxipime 2gm/50 ml (Pmx)) 50 ml @ 100 mls/hr Q12 IVPB Last administered on 01/31/17 08:21; Admin Dose 100 MLS/HR; Start 01/26/17 at 14: 00 Polyethylene Glycol (Miralax) 17 gm DAILY PO Last administered on 01/31/17 08 :19; Admin Dose 17 GM; Start 01/26/17 at 15:30 Docusate Sodium (Colace) 100 mg BID PO Last administered on 01/31/17 08:19; Admin Dose 100 MG; Start 01/26/17 at 15:30 Sodium Biphosphate/ Sodium Phosphate (Fleet Enema) 133 ml DAILY PRN [place] CONSTIPATION Last administered on 01/27/17 06:17; Admin Dose 133 ML; Start at 20:30 Tolterodine Tartrate (Detrol La) 4 mg DAILY PO Last administered on 01/31/17 08:19; Admin Dose 4 MG; Start 01/27/17 at 15:30 Ketorolac Tromethamine (Toradol) 15 mg Q6H PRN IV PAIN LEVEL 8-10 Last administered on 01/31/17 07:38; Admin Dose 15 MG; Start 01/28/17 at 15:00; Stop 01/31/17 at 14:59 Trimethobenzamide HCl (Tigan) 200 mg Q6H PRN IM NAUSEA AND/OR VOMITING; Start 01/28/17 at 13:30 Morphine Sulfate 2 mg 2 mg Q2H PRN IV PAIN LEVEL 7-10 Last administered on 11:30; Admin Dose 2 MG; Start 01/28/17 at 14:00 Magnesium Sulfate 50 ml @ 25 mls/hr ONCE ONCE IVPB Last administered on 12:06; Admin Dose 25 MLS/HR; Start 01/31/17 at 12:00; Stop 01/31/17 at 13 :59 Ondansetron HCl/ Dextrose (Zofran Inj/D5W) 54 ml @ 108 mls/hr Q6H PRN IV NAUSEA AND/OR VOMITING; Start 01/31/17 at 12:00 EMILIE ALBERT MD Jan 31, 2017 13:26
--- NOTE | 2017-01-31 13:26 | CONS ---
Date/Time of Note Date/Time of Note DATE: 01/31/17 TIME: 13:26 Assessment/Plan Assessment/Plan Chief Complaint/Hosp Course ADVANCED OVARIAN CANCER WITH MALIGNANT ASCITES AND PERITONEAL carcinomatosis Large conglomerate pelvic mass inseparable from the uterus, sigmoid colon and rectum containing clumps of calcification suspicious for calcified fibroids and containing cystic areas. Large amount of free intraperitoneal fluid measuring 25 HU with caking of the omentum compatible with carcinomatosis. Centralization of bowel without evidence of bowel obstruction. Moderately severe right hydronephrosis and hydroureter to the level of the pelvic mass. There is moderate left pelvocaliectasis without ureteral dilatation. The bladder is quite distended with urine. POST cystoscopy and insertion of bilateral JJ stents CT CHEST - EDOUARD, EXCEPT SMALL L PLEURAL EFFUSION CA 125- 337 GYNEONC EVAL noted plan- debulking surgery ANEMIA, MICROCYTOSIS complete ANEMIA W-UP Problems: Consultation Date/Type/Reason Admit Date/Time Jan 22, 2017 at 14:12 Initial Consult Date 01/27/17 [facility] Referring Provider: KENTRELL MACIAS 24 HR Interval Summary Free Text/Dictation ALL NOTED Exam/Review of Systems Vital Signs Vitals Vital Signs Date Time Temp Pulse Resp B/P Pulse Ox O2 Delivery O2 Flow Rate FiO2 01/31/17 12:17 100 01/31/17 11:48 97.6 18 112/68 100 01/31/17 04:08 Nasal Cannula 2.0 Intake and Output 01/30/17 01/30/17 01/31/17 15:00 23:00 07:00 Intake Total 104 ml 804 ml 400 ml Output Total 700 ml 900 ml Balance 104 ml 104 ml -500 ml Exam General: Alert. HEENT: Pupils are equal, round, reactive to light and accommodation. Neck: Supple with no masses of lymphadenopathy. Breast: Deferred due to recent examination and responsibility of primary care physician. Chest: Clear to auscultation and percussion with no rales, rhonchi, or wheeze. Heart: Normal rhythm with no murmur. Abdominal Exam: soft other than lower abd firm mass, distended due to ascites, mildly tender, nl bowel sounds. Pelvic exam: Large central firm mass with cul-de-sac nodularity noted Rectal: confirmatory with pelvic exam. Neurological: Grossly intact Results Result Diagram: 10/28/17 0602 01/31/17 0602 Results 24 hrs Laboratory Tests Test 01/31/17 06:02 White Blood Count 5.7 # Red Blood Count 4.57 Hemoglobin 10.6 L Hematocrit 35.0 L Mean Corpuscular Volume 76.6 L Mean Corpuscular Hemoglobin 23.2 L Mean Corpuscular Hemoglobin Concent 30.3 L Red Cell Distribution Width 18.2 H Platelet Count 452 H Mean Platelet Volume 10.8 H Neutrophils % 72.2 Lymphocytes % 12.1 L Monocytes % 11.1 H Eosinophils % 2.5 Basophils % 0.2 Nucleated Red Blood Cells % 0.0 Neutrophils # 4.1 Lymphocytes # 0.7 L Monocytes # 0.6 Eosinophils # 0.1 Basophils # 0.0 Nucleated Red Blood Cells # 0.0 Sodium Level 138 Potassium Level 4.5 Chloride Level 102 Carbon Dioxide Level 28 Anion Gap 13 Blood Urea Nitrogen 10 Creatinine 0.68 Glucose Level 86 Calcium Level 9.0 Phosphorus Level 3.9 Magnesium Level 1.5 L Medications Medications Current Medications Ondansetron HCl (Zofran Tab) 4 mg Q6H PRN PO NAUSEA AND/OR VOMITING; Start at 16:00 Acetaminophen (Tylenol Tab) 650 mg Q6H PRN PO PAIN LEVEL 1-3 OR FEVER Last administered on 01/28/17 06:20; Admin Dose 650 MG; Start 01/22/17 at 16:00 Docusate Sodium (Colace) 100 mg Q12H PRN PO CONSTIPATION; Start 01/22/17 at 16 :00 Magnesium Hydroxide (Milk Of Mag) 30 ml DAILY PRN PO CONSTIPATION Last administered on 01/31/17 07:38; Admin Dose 30 ML; Start 01/22/17 at 16:00 Bisacodyl 5 mg 5 mg DAILY PRN PO CONSTIPATION Last administered on 01/24/17 05:07; Admin Dose 5 MG; Start 01/22/17 at 16:00 Cefepime HCl (Maxipime 2gm/50 ml (Pmx)) 50 ml @ 100 mls/hr Q12 IVPB Last administered on 01/31/17 08:21; Admin Dose 100 MLS/HR; Start 01/26/17 at 14: 00 Polyethylene Glycol (Miralax) 17 gm DAILY PO Last administered on 01/31/17 08 :19; Admin Dose 17 GM; Start 01/26/17 at 15:30 Docusate Sodium (Colace) 100 mg BID PO Last administered on 01/31/17 08:19; Admin Dose 100 MG; Start 01/26/17 at 15:30 Sodium Biphosphate/ Sodium Phosphate (Fleet Enema) 133 ml DAILY PRN [place] CONSTIPATION Last administered on 01/27/17 06:17; Admin Dose 133 ML; Start at 20:30 Tolterodine Tartrate (Detrol La) 4 mg DAILY PO Last administered on 01/31/17 08:19; Admin Dose 4 MG; Start 01/27/17 at 15:30 Ketorolac Tromethamine (Toradol) 15 mg Q6H PRN IV PAIN LEVEL 8-10 Last administered on 01/31/17 07:38; Admin Dose 15 MG; Start 01/28/17 at 15:00; Stop 01/31/17 at 14:59 Trimethobenzamide HCl (Tigan) 200 mg Q6H PRN IM NAUSEA AND/OR VOMITING; Start 01/28/17 at 13:30 Morphine Sulfate 2 mg 2 mg Q2H PRN IV PAIN LEVEL 7-10 Last administered on 11:30; Admin Dose 2 MG; Start 01/28/17 at 14:00 Magnesium Sulfate 50 ml @ 25 mls/hr ONCE ONCE IVPB Last administered on 12:06; Admin Dose 25 MLS/HR; Start 01/31/17 at 12:00; Stop 01/31/17 at 13 :59 Ondansetron HCl/ Dextrose (Zofran Inj/D5W) 54 ml @ 108 mls/hr Q6H PRN IV NAUSEA AND/OR VOMITING; Start 01/31/17 at 12:00 RAMIREZ YBARRA MD Jan 31, 2017 13:26
[2017-01-31] MEDS ORDERED: PEG/ELECTROLYTES 4L BTL PO ONE (16:00)
[2017-02-01] VITALS (12 sets, daily range): BP systolic 94–119; BP diastolic 56–79; PULSE 85–101; RESP 15–20
[2017-02-01] MEDS: TOLTERODINE (SR) 4 MG CAP PO SCH (08:37)
[2017-02-01] MEDS: DOCUSATE SODIUM 100 MG CAP PO SCH ×2 (08:37→20:25)
[2017-02-01] MEDS: POLYETHYLENE GLYCOL 17 GM PACKET PO SCH (08:37)
[2017-02-01] MEDS: CEFEPIME 2GM/50 ML (PMX) 50 ML IVPB SCH ×2 (08:37→20:25)
[2017-02-01] MEDS ORDERED: PEG/ELECTROLYTES 4L BTL PO ONE (09:00)
[2017-02-01] MEDS: morphine 2 MG INJ IV PRN (10:51)
--- NOTE | 2017-02-01 12:59 | PN ---
Date/Time of Note Date/Time of Note DATE: 02/01/17 TIME: 12:57 Assessment/Plan VTE Prophylaxis VTE Prophylaxis Intervention: LMWH Lines/Catheters IV Catheter Type (from Nrsg): Saline Lock Urinary Cath still in place: Yes Reason Cath still needed: urinary retention Assessment/Plan Chief Complaint/Hosp Course Assessment/Plan: 56 yo F with known stage 4 ovarian Ca here with abd pain from ascites which are most likely malignant in origin sp para 10.19, hospitalization also notable for AUR 2/2 mass effect from ovarian ca 1. ovarian cancer - para path is malignant (adenocarcinoma), probable ovarian cancer stage IIIc likely - continue pain control, follow-up pain management recommendations, did you antiemetic medicines today - For debulking surgery by gynecology oncology team, scheduled to be performed in 24 hours, follow-up postop recommendations from them. - sp ureteral stents by POD # 8 - With less positive hematuria, follow-up urology recommendations, monitor FULL CODE (affirmed with patient and son earlier this admission) pt's oncologist Dr Donis in [place] aware of this admission Problems: Subjective 24 Hr Interval Summary Free Text/Dictation No acute events overnight. Exam/Review of Systems Vital Signs Vitals Vital Signs Date Time Temp Pulse Resp B/P Pulse Ox O2 Delivery O2 Flow Rate FiO2 02/01/17 12:50 92 02/01/17 11:48 98.0 18 94/59 95 01/31/17 04:08 Nasal Cannula 2.0 Intake and Output 01/31/17 01/31/17 02/01/17 15:00 23:00 07:00 Intake Total 1450 ml 1200 ml Output Total 980 ml 650 ml Balance 470 ml 550 ml Exam nad, presently sleeping no mrg lungs clear sen In place abd slight distension no LE edema B/L Results Result Diagram: 01/31/17 0602 01/31/17 0602 Medications Medications Current Medications Ondansetron HCl (Zofran Tab) 4 mg Q6H PRN PO NAUSEA AND/OR VOMITING; Start at 16:00 Acetaminophen (Tylenol Tab) 650 mg Q6H PRN PO PAIN LEVEL 1-3 OR FEVER Last administered on 01/28/17t 06:20; Admin Dose 650 MG; Start 01/22/17 at 16:00 Docusate Sodium (Colace) 100 mg Q12H PRN PO CONSTIPATION; Start 01/22/17 at 16 :00 Magnesium Hydroxide (Milk Of Mag) 30 ml DAILY PRN PO CONSTIPATION Last administered on 01/31/17 07:38; Admin Dose 30 ML; Start 01/22/17 at 16:00 Bisacodyl 5 mg 5 mg DAILY PRN PO CONSTIPATION Last administered on 01/24/17 05:07; Admin Dose 5 MG; Start 01/22/17 at 16:00 Cefepime HCl (Maxipime 2gm/50 ml (Pmx)) 50 ml @ 100 mls/hr Q12 IVPB Last administered on 02/01/17 08:37; Admin Dose 100 MLS/HR; Start 01/26/17 at 14: 00 Polyethylene Glycol (Miralax) 17 gm DAILY PO Last administered on 02/01/17 08 :37; Admin Dose 17 GM; Start 01/26/17 at 15:30 Docusate Sodium (Colace) 100 mg BID PO Last administered on 02/01/17 08:37; Admin Dose 100 MG; Start 01/26/17 at 15:30 Sodium Biphosphate/ Sodium Phosphate (Fleet Enema) 133 ml DAILY PRN [place] CONSTIPATION Last administered on 01/27/17 06:17; Admin Dose 133 ML; Start at 20:30 Tolterodine Tartrate (Detrol La) 4 mg DAILY PO Last administered on 02/01/17 08:37; Admin Dose 4 MG; Start 01/27/17 at 15:30 Trimethobenzamide HCl (Tigan) 200 mg Q6H PRN IM NAUSEA AND/OR VOMITING; Start 01/28/17 at 13:30 Morphine Sulfate 2 mg 2 mg Q2H PRN IV PAIN LEVEL 7-10 Last administered on 10:51; Admin Dose 2 MG; Start 01/28/17 at 14:00 Ondansetron HCl/ Dextrose (Zofran Inj/D5W) 54 ml @ 108 mls/hr Q6H PRN IV NAUSEA AND/OR VOMITING; Start 01/31/17 at 12:00 KENTRELL MACIAS Feb 01, 2017 12:59
[2017-02-01 13:54] LABS: BASOPHILS % 0.5 % (0.0-2.0); EOSINOPHILS # 0.2 10^3/ul (0.0-0.5); EOSINOPHILS % 1.9 % (0.0-7.0); HEMOGLOBIN 10.4 g/dl (12.0-16.0); LYMPHOCYTES # 0.9 10^3/ul (0.8-2.9); LYMPHOCYTES % 11.8 % (15.0-51.0); MEAN CORPUSCULAR HEMOGLOBIN 23.5 pg (29.0-33.0); MEAN CORPUSCULAR HGB CONC 30.6 g/dl (32.0-37.0); MEAN CORPUSCULAR VOLUME 76.7 fl (82.0-101.0); MONOCYTE # 0.7 10^3/ul (0.3-0.9); MONOCYTES % 8.1 % (0.0-11.0); NEUTROPHILS % 75.6 % (39.0-77.0); PLATELET COUNT 493 10^3/UL (140-415); RED BLOOD COUNT 4.43 10^6/ul (4.20-5.40); RED CELL DISTRIBUTION WIDTH 18.5 % (11.5-14.5)
[2017-02-01 14:08] LABS: INR 0.87; PROTIME 11.8 Sec (12.2-14.2); PT RATIO 0.9
[2017-02-01 14:11] LABS: CALCIUM 8.6 mg/dl (8.4-10.2); CREATININE 0.68 mg/dl (0.44-1.00); POTASSIUM 4.4 mmol/L (3.5-5.1)
--- NOTE | 2017-02-01 14:31 | PN ---
Date/Time of Note Date/Time of Note DATE: 02/01/17 TIME: 14:28 Assessment/Plan VTE Prophylaxis VTE Prophylaxis Intervention: ambulation Lines/Catheters IV [facility] Type [facility]from [facility] Saline Lock Urinary Cath still in place: Yes Reason Cath still needed: urinary retention Assessment/Plan Chief Complaint/Hosp Course 56-year-old female with stage IV ovarian cancer presented to the hospital with abdominal pain. CT scan of the abdomen and pelvis showed bilateral hydronephrosis more severe on the right side. The patient underwent paracentesis and 4 Liters were drained and sent for cytology. The pathology report came out as ovarian cancer. the patient underwent cystoscopy and insertion of bilateral JJ stents , she does have an indwelling Cullen catheter that is draining well and the color of the urine is dark. The tumor is pressing on the bladder mostly around the trigone and the bladder neck. That may make it difficult for her to urinate as a matter of fact she did have urinary retention when she came in. The Cullen catheter was removed earlier and the patient was not able to urinate so a new Cullen catheter was inserted. Patient was seen by Dr. Ramirez and he plans to operate on her probably tomorrow Problems: Subjective 24 Hr Interval Summary Constitutional: no complaints, other (Patient complaining of abdominal pain she has been taking the GoLYTELY in preparation for her surgery tomorrow by Dr. Ramirez) Respiratory: no complaints Cardiovascular: no complaints Gastrointestinal: pain Genitourinary: other (Cullen catheter in place and draining clear dark urine) Exam/Review of Systems Vital Signs Vitals Vital Signs Date Time Temp Pulse Resp B/P Pulse Ox O2 Delivery O2 Flow Rate FiO2 02/01/17 12:50 92 02/01/17 11:48 98.0 18 94/59 95 01/31/17 04:08 Nasal Cannula 2.0 Intake and Output 01/31/17 01/31/17 02/01/17 14:59 22:59 06:59 Intake Total 1450 ml 1200 ml Output Total 980 ml 650 ml Balance 470 ml 550 ml Exam Constitutional: alert Psych: anxiety Neck: supple Respiratory: normal air movement Cardiovascular: No edema Gastrointestinal: ascites, tender Genitourinary - Female: other (Cullen catheter draining well) Results Result Diagram: 02/01/17 1329 02/01/17 1329 Results 24 hrs Laboratory Tests Test 02/01/17 13:29 White Blood Count 8.0 # Red Blood Count 4.43 Hemoglobin 10.4 L Hematocrit 34.0 L Mean Corpuscular Volume 76.7 L Mean Corpuscular Hemoglobin 23.5 L Mean Corpuscular Hemoglobin Concent 30.6 L Red Cell Distribution Width 18.5 H Platelet Count 493 H Mean Platelet Volume 11.0 H Neutrophils % 75.6 Lymphocytes % 11.8 L Monocytes % 8.1 Eosinophils % 1.9 Basophils % 0.5 Nucleated Red Blood Cells % 0.0 Neutrophils # 6.0 Lymphocytes # 0.9 Monocytes # 0.7 Eosinophils # 0.2 Basophils # 0.0 Nucleated Red Blood Cells # 0.0 Prothrombin Time 11.8 L Prothrombin Time Ratio 0.9 INR International Normalized Ratio 0.87 Sodium Level 139 Potassium Level 4.4 Chloride Level 101 Carbon Dioxide Level 29 Anion Gap 13 Blood Urea Nitrogen 11 Creatinine 0.68 Glucose Level 75 Calcium Level 8.6 Medications Medications Current Medications Ondansetron HCl (Zofran Tab) 4 mg Q6H PRN PO NAUSEA AND/OR VOMITING; Start at 16:00 Acetaminophen (Tylenol Tab) 650 mg Q6H PRN PO PAIN LEVEL 1-3 OR FEVER Last administered on 01/28/17 06:20; Admin Dose 650 MG; Start 01/22/17 at 16:00 Docusate Sodium (Colace) 100 mg Q12H PRN PO CONSTIPATION; Start 01/22/17 at 16 :00 Magnesium Hydroxide (Milk Of Mag) 30 ml DAILY PRN PO CONSTIPATION Last administered on 01/31/17 07:38; Admin Dose 30 ML; Start 01/22/17 at 16:00 Bisacodyl 5 mg 5 mg DAILY PRN PO CONSTIPATION Last administered on 01/24/17 05:07; Admin Dose 5 MG; Start 01/22/17 at 16:00 Cefepime HCl (Maxipime 2gm/50 ml (Pmx)) 50 ml @ 100 mls/hr Q12 IVPB Last administered on 02/01/17 08:37; Admin Dose 100 MLS/HR; Start 01/26/17 at 14: 00 Polyethylene Glycol (Miralax) 17 gm DAILY PO Last administered on 02/01/17 08 :37; Admin Dose 17 GM; Start 01/26/17 at 15:30 Docusate Sodium (Colace) 100 mg BID PO Last administered on 02/01/17 08:37; Admin Dose 100 MG; Start 01/26/17 at 15:30 Sodium Biphosphate/ Sodium Phosphate (Fleet Enema) 133 ml DAILY PRN [place] CONSTIPATION Last administered on 01/27/17 06:17; Admin Dose 133 ML; Start at 20:30 Tolterodine Tartrate (Detrol La) 4 mg DAILY PO Last administered on 02/01/17 08:37; Admin Dose 4 MG; Start 01/27/17 at 15:30 Trimethobenzamide HCl (Tigan) 200 mg Q6H PRN IM NAUSEA AND/OR VOMITING; Start 01/28/17 at 13:30 Morphine Sulfate 2 mg 2 mg Q2H PRN IV PAIN LEVEL 7-10 Last administered on 10:51; Admin Dose 2 MG; Start 01/28/17 at 14:00 Ondansetron HCl/ Dextrose (Zofran Inj/D5W) 54 ml @ 108 mls/hr Q6H PRN IV NAUSEA AND/OR VOMITING; Start 01/31/17 at 12:00 EMILIE ALBERT MD Feb 01, 2017 14:31
--- NOTE | 2017-02-01 20:08 | CONS ---
Date/Time of Note Date/Time of Note DATE: 02/01/17 TIME: 20:06 Assessment/Plan Assessment/Plan Chief Complaint/Hosp Course ADVANCED OVARIAN CANCER WITH MALIGNANT ASCITES AND PERITONEAL carcinomatosis Large conglomerate pelvic mass inseparable from the uterus, sigmoid colon and rectum containing clumps of calcification suspicious for calcified fibroids and containing cystic areas. Large amount of free intraperitoneal fluid measuring 25 HU with caking of the omentum compatible with carcinomatosis. Centralization of bowel without evidence of bowel obstruction. Moderately severe right hydronephrosis and hydroureter to the level of the pelvic mass. There is moderate left pelvocaliectasis without ureteral dilatation. The bladder is quite distended with urine. POST cystoscopy and insertion of bilateral JJ stents CT CHEST - EDOUARD, EXCEPT SMALL L PLEURAL EFFUSION CA 125- 337 GYNEONC EVAL noted plan- debulking surgery ANEMIA, MICROCYTOSIS ANEMIA W-UP= + COMPONENT ACD Problems: Consultation Date/Type/Reason Admit Date/Time Jan 22, 2017 at 14:12 Initial Consult Date 01/27/17 Type of Consultation: [facility] [employer] [facility] [employer] Referring Provider: KENTRELL MACIAS 24 HR Interval Summary Free Text/Dictation ALL NOTED GOING FOR SURGERY ON THURSDAY Exam/Review of Systems Vital Signs Vitals Vital Signs Date Time Temp Pulse Resp B/P Pulse Ox O2 Delivery O2 Flow Rate FiO2 02/01/17 16:10 101 02/01/17 16:09 98.4 19 99/67 99 01/31/17 04:08 Nasal Cannula 2.0 Intake and Output 01/31/17 01/31/17 02/01/17 15:00 23:00 07:00 Intake Total 1450 ml 1200 ml Output Total 980 ml 650 ml Balance 470 ml 550 ml Exam General: Alert. HEENT: Pupils are equal, round, reactive to light and accommodation. Neck: Supple with no masses of lymphadenopathy. Breast: Deferred due to recent examination and responsibility of primary care physician. Chest: Clear to auscultation and percussion with no rales, rhonchi, or wheeze. Heart: Normal rhythm with no murmur. Abdominal Exam: soft other than lower abd firm mass, distended due to ascites, mildly tender, nl bowel sounds. Pelvic exam: Large central firm mass with cul-de-sac nodularity noted Rectal: confirmatory with pelvic exam. Neurological: Grossly intact Results Result Diagram: 02/01/17 1329 02/01/17 1329 Results 24 hrs Laboratory Tests Test 02/01/17 13:29 White Blood Count 8.0 # Red Blood Count 4.43 Hemoglobin 10.4 L Hematocrit 34.0 L Mean Corpuscular Volume 76.7 L Mean Corpuscular Hemoglobin 23.5 L Mean Corpuscular Hemoglobin Concent 30.6 L Red Cell Distribution Width 18.5 H Platelet Count 493 H Mean Platelet Volume 11.0 H Neutrophils % 75.6 Lymphocytes % 11.8 L Monocytes % 8.1 Eosinophils % 1.9 Basophils % 0.5 Nucleated Red Blood Cells % 0.0 Neutrophils # 6.0 Lymphocytes # 0.9 Monocytes # 0.7 Eosinophils # 0.2 Basophils # 0.0 Nucleated Red Blood Cells # 0.0 Prothrombin Time 11.8 L Prothrombin Time Ratio 0.9 INR International Normalized Ratio 0.87 Sodium Level 139 Potassium Level 4.4 Chloride Level 101 Carbon Dioxide Level 29 Anion Gap 13 Blood Urea Nitrogen 11 Creatinine 0.68 Glucose Level 75 Calcium Level 8.6 Medications Medications Current Medications Ondansetron HCl (Zofran Tab) 4 mg Q6H PRN PO NAUSEA AND/OR VOMITING; Start at 16:00 Acetaminophen (Tylenol Tab) 650 mg Q6H PRN PO PAIN LEVEL 1-3 OR FEVER Last administered on 01/28/17 06:20; Admin Dose 650 MG; Start 01/22/17 at 16:00 Docusate Sodium (Colace) 100 mg Q12H PRN PO CONSTIPATION; Start 01/22/17 at 16 :00 Magnesium Hydroxide (Milk Of Mag) 30 ml DAILY PRN PO CONSTIPATION Last administered on 01/31/17 07:38; Admin Dose 30 ML; Start 01/22/17 at 16:00 Bisacodyl 5 mg 5 mg DAILY PRN PO CONSTIPATION Last administered on 01/24/17 05:07; Admin Dose 5 MG; Start 01/22/17 at 16:00 Cefepime HCl (Maxipime 2gm/50 ml (Pmx)) 50 ml @ 100 mls/hr Q12 IVPB Last administered on 02/01/17 08:37; Admin Dose 100 MLS/HR; Start 01/26/17 at 14: 00 Polyethylene Glycol (Miralax) 17 gm DAILY PO Last administered on 02/01/17 08 :37; Admin Dose 17 GM; Start 01/26/17 at 15:30 Docusate Sodium (Colace) 100 mg BID PO Last administered on 02/01/17 08:37; Admin Dose 100 MG; Start 01/26/17 at 15:30 Sodium Biphosphate/ Sodium Phosphate (Fleet Enema) 133 ml DAILY PRN [place] CONSTIPATION Last administered on 01/27/17 06:17; Admin Dose 133 ML; Start at 20:30 Tolterodine Tartrate (Detrol La) 4 mg DAILY PO Last administered on 02/01/17 08:37; Admin Dose 4 MG; Start 01/27/17 at 15:30 Trimethobenzamide HCl (Tigan) 200 mg Q6H PRN IM NAUSEA AND/OR VOMITING; Start 01/28/17 at 13:30 Morphine Sulfate 2 mg 2 mg Q2H PRN IV PAIN LEVEL 7-10 Last administered on 10:51; Admin Dose 2 MG; Start 01/28/17 at 14:00 Ondansetron HCl/ Dextrose (Zofran Inj/D5W) 54 ml @ 108 mls/hr Q6H PRN IV NAUSEA AND/OR VOMITING; Start 01/31/17 at 12:00 RAMIREZ YBARRA MD Feb 01, 2017 20:08
[2017-02-02] VITALS (49 sets, daily range): BP systolic 45–165; BP diastolic 39–109; PULSE 88–179; RESP 15–22
[2017-02-02] MEDS ORDERED: DOPamine-D5W 1.6 MG/ML 250 ML ONE (07:00)
[2017-02-02] MEDS: morphine 2 MG INJ IV PRN ×2 (07:37→23:55)
[2017-02-02] MEDS: TOLTERODINE (SR) 4 MG CAP PO SCH (08:18)
[2017-02-02] MEDS: POLYETHYLENE GLYCOL 17 GM PACKET PO SCH (08:18)
[2017-02-02] MEDS: DOCUSATE SODIUM 100 MG CAP PO SCH ×2 (08:18→20:50)
[2017-02-02] MEDS: CEFEPIME 2GM/50 ML (PMX) 50 ML IVPB SCH (08:23)
[2017-02-02] MEDS ORDERED: MIDAZOLAM 1 MG/ML 2 ML INJ ONE (10:30)
[2017-02-02] MEDS ORDERED: THROMBIN 5000 UNIT VIAL ONE (10:59)
[2017-02-02] MEDS ORDERED: VASOPRESSIN 20 UNITS INJ ONE (11:00)
[2017-02-02] MEDS ORDERED: METHYLENE BLUE 1% 10 ML INJ ONE (11:01)
[2017-02-02] MEDS ORDERED: PHENYLephrine (100 MCG/ML) 5ML SYG ONE ×4 (11:45→15:39)
[2017-02-02] MEDS ORDERED: FUROSEMIDE 20 MG INJ ONE ×3 (12:59→14:43)
[2017-02-02] MEDS ORDERED: morphine 10 MG INJ ONE ×2 (13:33→15:56)
--- NOTE | 2017-02-02 14:39 | PN ---
Date/Time of Note Date/Time of Note DATE: 02/02/17 TIME: 14:30 Assessment/Plan VTE Prophylaxis VTE Prophylaxis Intervention: SCD's Lines/Catheters IV Catheter Type (from Nrsg): A Line Urinary Cath still in place: Yes Reason Cath still needed: urinary retention Assessment/Plan Assessment/Plan 56 yo F with known stage 4 ovarian Ca here admitted for abd pain from malignant ascites sp para 10.19. hospitalization also notable for hydro AUR from her ascites, sp ureteral stenting. PLAN customer advocacy manager onc to do debulking today, onc also on consult though patient already has an outpatient oncologist. will touch base with him this week. (Dr Donis in [place] ). Unclear if onc consultant internship here has spoken with him AUR: cont sen. stop abx Subjective 24 Hr Interval Summary Free Text/Dictation Pt at procedure at time of my attempted eval this AM Exam/Review of Systems Vital Signs Vitals Vital Signs Date Time Temp Pulse Resp B/P Pulse Ox O2 Delivery O2 Flow Rate FiO2 02/02/17 08:11 97 02/02/17 08:09 98.6 18 108/66 99 01/31/17 04:08 Nasal Cannula 2.0 Intake and Output 02/01/17 02/01/17 02/02/17 15:00 23:00 07:00 Intake Total 50 ml 1650 ml 600 ml Output Total 400 ml 700 ml Balance 50 ml 1250 ml -100 ml Exam Pt at procedure at time of my attempted eval this AM Results Result Diagram: 02/01/17 1329 02/01/17 1329 Medications Medications Current Medications Ondansetron HCl (Zofran Tab) 4 mg Q6H PRN PO NAUSEA AND/OR VOMITING; Start at 16:00 Acetaminophen (Tylenol Tab) 650 mg Q6H PRN PO PAIN LEVEL 1-3 OR FEVER Last administered on 01/28/17 06:20; Admin Dose 650 MG; Start 01/22/17 at 16:00 Docusate Sodium (Colace) 100 mg Q12H PRN PO CONSTIPATION; Start 01/22/17 at 16 :00 Magnesium Hydroxide (Milk Of Mag) 30 ml DAILY PRN PO CONSTIPATION Last administered on 01/31/17 07:38; Admin Dose 30 ML; Start 01/22/17 at 16:00 Bisacodyl 5 mg 5 mg DAILY PRN PO CONSTIPATION Last administered on 01/24/17 05:07; Admin Dose 5 MG; Start 01/22/17 at 16:00 Cefepime HCl (Maxipime 2gm/50 ml (Pmx)) 50 ml @ 100 mls/hr Q12 IVPB Last administered on 02/02/17 08:23; Admin Dose 100 MLS/HR; Start 01/26/17 at 14: 00 Polyethylene Glycol (Miralax) 17 gm DAILY PO Last administered on 02/01/17 08 :37; Admin Dose 17 GM; Start 01/26/17 at 15:30 Docusate Sodium (Colace) 100 mg BID PO Last administered on 02/01/17 20:25; Admin Dose 100 MG; Start 01/26/17 at 15:30 Sodium Biphosphate/ Sodium Phosphate (Fleet Enema) 133 ml DAILY PRN [place] CONSTIPATION Last administered on 01/27/17 06:17; Admin Dose 133 ML; Start at 20:30 Tolterodine Tartrate (Detrol La) 4 mg DAILY PO Last administered on 02/01/17 08:37; Admin Dose 4 MG; Start 01/27/17 at 15:30 Trimethobenzamide HCl (Tigan) 200 mg Q6H PRN IM NAUSEA AND/OR VOMITING; Start 01/28/17 at 13:30 Morphine Sulfate 2 mg 2 mg Q2H PRN IV PAIN LEVEL 7-10 Last administered on 07:37; Admin Dose 2 MG; Start 01/28/17 at 14:00 Ondansetron HCl 8 mg/Dextrose 54 ml @ 108 mls/hr Q6H PRN IV NAUSEA AND/OR VOMITING; Start 01/31/17 at 12:00 Cefazolin Sodium 50 ml @ 100 mls/hr Q8H IVPB ; Start 02/02/17 at 11:30; Stop 02/03/17 at 11:29 Metronidazole (Flagyl 500 Mg (Pmx)) 100 ml @ 100 mls/hr Q8H IVPB ; Start 02/02 at 11:30; Stop 02/03/17 at 11:29 Hydromorphone HCl (Dilaudid) 1 mg Q2H PRN IV PAIN LEVEL 6-10; Start 02/02/17 at 11:30 Diphenhydramine HCl (Benadryl) 25 mg Q6H PRN IV ITCHING; Start 02/02/17 at 11: 30 Famotidine (Pepcid Iv) 20 mg Q12 IV ; Start 02/02/17 at 21:00 DAYANARA BROWN MD Feb 02, 2017 14:39
[2017-02-02] MEDS ORDERED: ETOMIDATE 20 MG INJ ONE (14:42)
[2017-02-02] MEDS ORDERED: LIDOCAINE 2% (SDV) 5 ML INJ ONE (14:42)
[2017-02-02] MEDS ORDERED: ROCURONIUM 50 MG INJ ONE (14:42)
--- NOTE | 2017-02-02 16:07 | HPN ---
Date/Time of Note Date/Time of Note DATE: 02/02/17 TIME: 16:06 Interval H&P Admission Note Pt. seen H&P reviewed: No system changes RAUL EUCEDA MD Feb 02, 2017 16:07
--- NOTE | 2017-02-02 16:12 | SIPON ---
Date/Time of Note Date/Time of Note DATE: 02/02/17 TIME: 16:09 Operative Report Preoperative Diagnosis Probable ovarian cancer, hydroureter, impending bowel obstruction Postoperative Diagnosis same Operation/Procedure Performed probable LSH/BSO, ureteral dissection x2, Omentectomy with splenectomy, diaphragm stripping(rt), cytoreduction Surgeon see signature line assistant service manager Zeina [place] Anesthesia: general Estimated blood loss: other Transfusion Required none Specimen multiple Grafts/Implants none Complications none RAUL EUCEDA MD Feb 02, 2017 16:12
[2017-02-02] MEDS ORDERED: PHENYLephrine 20MG IN 250 ML 250 ML IV ONE (16:30)
[2017-02-02 16:42] LABS: ABNORMAL IP MESSAGE 1; HEMOGLOBIN 9.2 g/dl (12.0-16.0); MEAN CORPUSCULAR HEMOGLOBIN 27.3 pg (29.0-33.0); MEAN CORPUSCULAR HGB CONC 32.9 g/dl (32.0-37.0); MEAN CORPUSCULAR VOLUME 83.1 fl (82.0-101.0); MEAN PLATELET VOLUME 10.8 fl (7.4-10.4); PLATELET COUNT 259 10^3/UL (140-415); RED BLOOD COUNT 3.37 10^6/ul (4.20-5.40); RED CELL DISTRIBUTION WIDTH 17.3 % (11.5-14.5); WHITE BLOOD COUNT 27.6 10^3/ul (4.8-10.8)
[2017-02-02 16:49] LABS: POSITIVE DIFF @See below
[2017-02-02] MEDS ORDERED: CEFAZOLIN 1 GM INJ ONE (16:56)
[2017-02-02] MEDS ORDERED: metroNIDAZOLE 500 MG/NS (PMX) 100 ML IVPB ONE (16:56)
[2017-02-02 16:59] LABS: CALCIUM 7.8 mg/dl (8.4-10.2); CREATININE 0.63 mg/dl (0.44-1.00); POTASSIUM 4.6 mmol/L (3.5-5.1)
[2017-02-02 17:18] LABS: GIANT THROMBO% (M) 2 % (0-0); MONOCYTES % (M) 3 % (0-11); PLATELET ESTIMATE NORMAL
[2017-02-02] MEDS ORDERED: MEPERIDINE 25 MG INJ IV PRN (17:30)
[2017-02-02] MEDS ORDERED: DIPHENHYDRAMINE 50 MG INJ IV PRN (17:30)
[2017-02-02] MEDS ORDERED: morphine (1 MG/ML) 10ML SYRINGE IV PRN ×2 (17:30)
[2017-02-02] MEDS ORDERED: EPHEDrine SULFATE 50 MG/5 ML SYG IV PRN (17:30)
[2017-02-02] MEDS ORDERED: ONDANSETRON 4 MG INJ IV PRN (17:30)
[2017-02-02] MEDS ORDERED: FENTAnyl 50 MCG/ML VIAL IV PRN (17:30)
[2017-02-02] MEDS: SOD CHLORIDE 0.9% 1,000 ML IV SCH (17:31)
[2017-02-02] MEDS ORDERED: NORepinephrine 8MG/250 ML (PMX 250 ML ONE (17:37)
[2017-02-02] MEDS ORDERED: DOPamine-D5W 1.6 MG/ML 250 ML IV SCH ×2 (18:00)
[2017-02-02] MEDS ORDERED: EPINEPHrine 4 MG in DEXTROSE 5% 246 ML IV SCH ×4 (18:00)
[2017-02-02] MEDS ORDERED: NORepinephrine 8MG/250 ML (PMX 250 ML IV SCH ×2 (18:00)
[2017-02-02] MEDS: PHENYLephrine 20MG IN 250 ML 250 ML IV SCH ×2 (18:11→20:49)
[2017-02-02] MEDS ORDERED: SOD CHLORIDE 0.9% 250 ML IV* ONE (18:24)
[2017-02-02] MEDS ORDERED: NORepinephrine 32 MG in DEXTROSE 5% 218 ML IV SCH (18:30)
[2017-02-02] MEDS: VASOPRESSIN 60 UNIT in DEXTROSE 5% 57 ML IV SCH (18:30)
[2017-02-02 19:03] LABS: ABNORMAL IP MESSAGE 1; BASOPHIL # 0.1 10^3/ul (0.0-0.1); BASOPHILS % 0.3 % (0.0-2.0); HEMATOCRIT 34.3 % (37.0-47.0); HEMOGLOBIN 11.6 g/dl (12.0-16.0); LYMPHOCYTES # 1.5 10^3/ul (0.8-2.9); LYMPHOCYTES % 4.2 % (15.0-51.0); MEAN CORPUSCULAR HEMOGLOBIN 28.5 pg (29.0-33.0); MEAN CORPUSCULAR HGB CONC 33.8 g/dl (32.0-37.0); MEAN CORPUSCULAR VOLUME 84.3 fl (82.0-101.0); MEAN PLATELET VOLUME 11.2 fl (7.4-10.4); MONOCYTE # 1.6 10^3/ul (0.3-0.9); MONOCYTES % 4.4 % (0.0-11.0); NEUTROPHIL # 32.2 10^3/ul (1.6-7.5); PLATELET COUNT 241 10^3/UL (140-415); RED BLOOD COUNT 4.07 10^6/ul (4.20-5.40); RED CELL DISTRIBUTION WIDTH 16.7 % (11.5-14.5); WHITE BLOOD COUNT 35.8 10^3/ul (4.8-10.8)
[2017-02-02 19:04] LABS: POSITIVE DIFF @See below
[2017-02-02 19:05] LABS: NEUTROPHILS % 89.8 % (39.0-77.0)
[2017-02-02 19:18] LABS: INR 1.16; PARTIAL THROMBOPLASTIN TIME 26.5 Sec (25.0-35.0); PROTIME 14.8 Sec (12.2-14.2); PT RATIO 1.2
[2017-02-02] MEDS: ALBUMIN HUMAN 5% 250 ML IV SCH ×2 (19:33→19:35)
[2017-02-02 19:38] LABS: ALBUMIN 2.1 g/dl (3.3-4.9); ALBUMIN/GLOBULIN RATIO 1.05; BILIRUBIN,INDIRECT 0.5 mg/dl (0-1.1); BILIRUBIN,TOTAL 0.5 mg/dl (0.2-1.3); CALCIUM 7.8 mg/dl (8.4-10.2); CREATININE 0.74 mg/dl (0.44-1.00); POTASSIUM 4.3 mmol/L (3.5-5.1); TOTAL PROTEIN 4.1 g/dl (6.1-8.1)
[2017-02-02] MEDS: metroNIDAZOLE 500 MG/NS (PMX) 100 ML IVPB SCH (19:56)
[2017-02-02] MEDS: CEFAZOLIN 1 GM/50 ML (PMX) 50 ML IVPB SCH (19:56)
[2017-02-02] MEDS: D5-LR + KCL 20 MEQ 1,000 ML IV SCH (20:27)
[2017-02-02 20:38] LABS: Arterial Base Excess -9.1 mmol/L (-3.0-3); Arterial COHb 0.3 % (0.0-3.0); Arterial Fraction of Oxyhgb 98.6 % (93.0-99.0); Arterial MetHb 0.5 % (0.0-1.5); MODE VENT - AC
[2017-02-02 20:44] LABS: HEMATOCRIT 12.3 % (37.0-47.0)
[2017-02-02] MEDS ORDERED: FAMOTIDINE 20 MG INJ IV SCH (21:00)
[2017-02-02 21:06] LABS: HEMOGLOBIN 3.8 g/dl (12.0-16.0)
--- NOTE | 2017-02-02 21:27 | RADRPT ---
PROCEDURE: XR Chest. CLINICAL INDICATION: Check endotracheal tube position. TECHNIQUE: Single frontal view. COMPARISON: 01/22/2017. FINDINGS: The endotracheal tube is in satisfactory position with the tip 3.5 cm above the christophe. The nasogast emily tube tip is in the stomach and the right internal jugular vein catheter tip is in the upper supe rior vena cava. The lungs are clear. The heart size is normal. There is no pleural effusion. There is no pneumothorax. There is right shoulder calcific tendonitis. IMPRESSION: 1. Tubes and lines in satisfactory position. 2. Right shoulder calcific tendonitis. 3. Otherwise unremarkable chest radiograph. RPTAT: QQ .Eliud Yoder MD, MD Date Time Electronically viewed and signed by .Eliud Yoder MD, on 02/02/2017 21:27 .R/
[2017-02-02 21:28] LABS: MAGNESIUM 1.4 mg/dl (1.7-2.5)
[2017-02-02] MEDS: HYDROmorphONE 0.5 MG/0.5 ML SYG IV PRN (21:43)
[2017-02-02] MEDS ORDERED: MAGNESIUM SULFATE 2 GM/50 ML 50 ML IVPB ONE (22:30)
--- NOTE | 2017-02-02 22:32 | CONS ---
Date/Time of Note Date/Time of Note DATE: 02/02/17 TIME: 22:25 Assessment/Plan Assessment/Plan Chief Complaint/Hosp Course ADVANCED OVARIAN CANCER WITH MALIGNANT ASCITES AND PERITONEAL carcinomatosis Large conglomerate pelvic mass inseparable from the uterus, sigmoid colon and rectum containing clumps of calcification suspicious for calcified fibroids and containing cystic areas. Large amount of free intraperitoneal fluid measuring 25 HU with caking of the omentum compatible with carcinomatosis. Centralization of bowel without evidence of bowel obstruction. Moderately severe right hydronephrosis and hydroureter to the level of the pelvic mass. There is moderate left pelvocaliectasis without ureteral dilatation. The bladder is quite distended with urine. POST cystoscopy and insertion of bilateral JJ stents CT CHEST - EDOUADR, EXCEPT SMALL L PLEURAL EFFUSION CA 125- 337 POST debulking surgery ANEMIA, MICROCYTOSIS COMPLEX ANEMIA W-UP= + COMPONENT ACD DROP H/H POSTOP SERIAL H/H PRBC NEEDED PER STANDING ORDERS D/W RN malignant ascites sp para 10.19. hydro AUR from ascites, sp ureteral stenting. Problems: Consultation Date/Type/Reason Admit Date/Time Jan 22, 2017 at 14:12 Initial Consult Date 01/27/17 [facility]erring Provider: KENTRELL MACIAS 24 HR Interval Summary Free Text/Dictation ALL NOTED POST OP IN ICU, ON VENT, ON PRESSORS PRBC ORDERED Exam/Review of Systems Vital Signs Vitals Vital Signs Date Time Temp Pulse Resp B/P Pulse Ox O2 Delivery O2 Flow Rate FiO2 02/02/17 22:00 137 111/80 100 Mechanical Ventilator 02/02/17 20:00 97.9 02/02/17 19:20 20 100 01/31/17 04:08 2.0 Intake and Output 02/01/17 02/01/17 02/02/17 15:00 23:00 07:00 Intake Total 50 ml 1650 ml 600 ml Output Total 400 ml 700 ml Balance 50 ml 1250 ml -100 ml Exam General:ON VENT HEENT: Pupils are equal, round, reactive to light and accommodation. Neck: Supple with no masses of lymphadenopathy. Breast: Deferred due to recent examination and responsibility of primary care physician. Chest: Clear to auscultation and percussion with no rales, rhonchi, or wheeze. Heart: Normal rhythm with no murmur. Abdominal Exam:POST OP, NO BS Neurological: SEDATED Results Result Diagram: 02/02/17 1930 02/02/17 1820 Results 24 hrs Laboratory Tests Test 02/02/17 16:27 02/02/17 18:20 02/02/17 18:26 02/02/17 19:30 White Blood Count 27.6 #H 35.8 #H Red Blood Count 3.37 #L 4.07 #L Hemoglobin 9.2 L 11.6 #L 3.8 #*L Hematocrit 28.0 L 34.3 #L 12.3 #L Mean Corpuscular Volume 83.1 84.3 Mean Corpuscular Hemoglobin 27.3 L 28.5 L Mean Corpuscular Hemoglobin Concent 32.9 33.8 Red Cell Distribution Width 17.3 H 16.7 H Platelet Count 259 # 241 Mean Platelet Volume 10.8 H 11.2 H Neutrophils % 89.8 H Segmented Neutrophils % (Manual) 84 H Band Neutrophils % (Manual) 10 H Lymphocytes % 4.2 L Lymphocytes % (Manual) 3 L Monocytes % 4.4 Monocytes % (Manual) 3 Eosinophils % 0.0 Basophils % 0.3 Nucleated Red Blood Cells % 0.0 0.0 Neutrophils # 32.2 H Neutrophils # (Manual) 23.9 H Band Neutrophils # 2.7 H Absolute Lymphocytes (Manual) 0.8 Lymphocytes # 1.5 Monocytes # 1.6 H Absolute Monocytes (Manual) 0.8 Eosinophils # 0.0 Basophils # 0.1 Nucleated Red Blood Cells # 0.0 Platelet Estimate NORMAL Giant Platelets 2 H Sodium Level 140 139 Potassium Level 4.6 4.3 Chloride Level 109 109 Carbon Dioxide Level 20 L 20 L Anion Gap 16 14 Blood Urea Nitrogen 13 14 Creatinine 0.63 0.74 Glucose Level 124 # 132 Calcium Level 7.8 L 7.8 L Prothrombin Time 14.8 #H Prothrombin Time Ratio 1.2 INR International Normalized Ratio 1.16 Activated Partial Thromboplast Time 26.5 Total Bilirubin 0.5 Direct Bilirubin 0.00 Indirect Bilirubin 0.5 Aspartate Amino Transf (AST/SGOT) 76 H Alanine Aminotransferase (ALT/SGPT) 74 H Alkaline Phosphatase 42 Total Protein 4.1 L Albumin 2.1 L Globulin 2.00 Albumin/Globulin Ratio 1.05 Phosphorus Level 7.0 H Magnesium Level 1.4 L Test 02/02/17 20:30 Blood Gas Specimen Source Blood arterial Arterial Blood Date Drawn 02/02/2017 8:33:58 PM Arterial Blood pH (Temp corrected) 7.312 L Arterial Blood pCO2 (Temp correct) 32.3 L Arterial Blood pO2 (Temp corrected) 540.7 H Arterial Blood HCO3 16.0 L Arterial Blood Base Excess -9.1 L Arterial Blood Oxygen Saturation 99.4 H Bi Test N/A Arterial Blood Gas Puncture Site A-Line Arterial Blood Carboxyhemoglobin 0.3 Arterial Blood Methemoglobin 0.5 Blood Gas A-a O2 Differential 140.0 H Oxyhemoglobin Percent 98.6 Total Hemoglobin 13.0 Blood Gas Temperature 37.0 Blood Gas Respiration Rate 14.0 Blood Gas Actual Respiration Rate 20 Blood Gas Modality VENT - AC FiO2 100.0 Blood Gas Tidal Volume 500.0 Blood Gas Low PEEP Setting 5.0 Blood Gas Inspiratory Pressure 16.0 Blood Gas Notified Whom BR Blood Gas Notified Time 02/02/2017 8:38:40 PM Medications Medications Current Medications Ondansetron HCl (Zofran Tab) 4 mg Q6H PRN PO NAUSEA AND/OR VOMITING; Start at 16:00 Acetaminophen (Tylenol Tab) 650 mg Q6H PRN PO PAIN LEVEL 1-3 OR FEVER Last administered on 01/28/17 06:20; Admin Dose 650 MG; Start 01/22/17 at 16:00 Docusate Sodium (Colace) 100 mg Q12H PRN PO CONSTIPATION; Start 01/22/17 at 16 :00 Magnesium Hydroxide (Milk Of Mag) 30 ml DAILY PRN PO CONSTIPATION Last administered on 01/31/17 07:38; Admin Dose 30 ML; Start 01/22/17 at 16:00 Bisacodyl (Dulcolax) 5 mg DAILY PRN PO CONSTIPATION Last administered on 05:07; Admin Dose 5 MG; Start 01/22/17 at 16:00 Polyethylene Glycol (Miralax) 17 gm DAILY PO Last administered on 02/01/17 08 :37; Admin Dose 17 GM; Start 01/26/17 at 15:30 Docusate Sodium (Colace) 100 mg BID PO Last administered on 02/01/17 20:25; Admin Dose 100 MG; Start 01/26/17 at 15:30 Sodium Biphosphate/ Sodium Phosphate (Fleet Enema) 133 ml DAILY PRN [place] CONSTIPATION Last administered on 01/27/17 06:17; Admin Dose 133 ML; Start at 20:30 Tolterodine Tartrate (Detrol La) 4 mg DAILY PO Last administered on 02/01/17 08:37; Admin Dose 4 MG; Start 01/27/17 at 15:30 Morphine Sulfate 2 mg 2 mg Q2H PRN IV PAIN LEVEL 7-10 Last administered on 07:37; Admin Dose 2 MG; Start 01/28/17 at 14:00 Ondansetron HCl 8 mg/Dextrose 54 ml @ 108 mls/hr Q6H PRN IV NAUSEA AND/OR VOMITING; Start 01/31/17 at 12:00 Cefazolin Sodium 50 ml @ 100 mls/hr Q8H IVPB Last administered on 02/02/17 19:56; Admin Dose 100 MLS/HR; Start 02/02/17 at 11:30; Stop 02/03/17 at 11:29 Metronidazole (Flagyl 500 Mg (Pmx)) 100 ml @ 100 mls/hr Q8H IVPB Last administered on 02/02/17 19:56; Admin Dose 100 MLS/HR; Start 02/02/17 at 11: 30; Stop 02/03/17 at 11:29 Hydromorphone HCl (Dilaudid) 1 mg Q2H PRN IV PAIN LEVEL 6-10 Last administered on 02/02/17 21:43; Admin Dose 1 MG; Start 02/02/17 at 11:30 Diphenhydramine HCl 25 mg 25 mg Q6H PRN IV ITCHING; Start 02/02/17 at 11:30 Sodium Chloride 1,000 ml @ 10 mls/hr Q24H IV Last administered on 02/02/17 17:31; Admin Dose 10 MLS/HR; Start 02/02/17 at 17:31 Phenylephrine HCl 250 ml @ 75 mls/hr PROTOCOL IV Last administered on 20:49; Admin Dose 150 MLS/HR; Start 02/02/17 at 18:00 Epinephrine 4 mg/ Dextrose 250 ml @ 3.75 mls/hr PROTOCOL IV ; Start 02/02/17 at 18:00 Vasopressin 60 unit/Dextrose 60 ml @ 0 mls/hr Q12H IV ; Start 02/02/17 at 18:30 Potassium Cl/ Dextrose/Lact Ringer's 1,000 ml @ 150 mls/hr Q6H40M IV Last administered on 02/02/17t 20:27; Admin Dose 150 MLS/HR; Start 02/02/17 at 19: 30 Norepinephrine 32 mg/Dextrose 250 ml @ 0.46 mls/hr TITRATE IV ; Start at 18:30 Phenylephrine HCl 160 mg/Dextrose 500 ml @ 18.75 mls/ hr TITRATE IV ; Start at 18:30 Magnesium Sulfate (Magnesium Sulfate 2 Gm/50 ml) 50 ml @ 25 mls/hr ONCE ONCE IVPB ; Start 02/02/17 at 22:30; Stop 02/03/17 at 00:29; Status UNRAMIREZ FAM MD Feb 02, 2017 22:32
[2017-02-02] MEDS: PHENYLephrine 160 MG in DEXTROSE 5% 484 ML IV SCH (23:00)
[2017-02-02 23:27] LABS: PLATELET COUNT 199 10^3/UL (140-415)
[2017-02-02] MEDS: DIPHENHYDRAMINE 50 MG INJ IV PRN (23:55)
[2017-02-03] VITALS (103 sets, daily range): BP systolic 78–121; BP diastolic 55–100; PULSE 119–166; RESP 18–54
[2017-02-03 00:05] LABS: INR 1.06; PROTIME 13.8 Sec (12.2-14.2); PT RATIO 1.1
[2017-02-03 00:06] LABS: PARTIAL THROMBOPLASTIN TIME 27.5 Sec (25.0-35.0)
[2017-02-03 00:25] LABS: D-DIMER 8118.15 ng/ml (<460)
[2017-02-03 00:32] LABS: THROMBIN TIME 16.1 SEC (13.8-19.1)
[2017-02-03 01:18] LABS: HEMATOCRIT 34.3 % (37.0-47.0); HEMOGLOBIN 11.7 g/dl (12.0-16.0)
[2017-02-03] MEDS: morphine 2 MG INJ IV PRN ×8 (02:28→23:42)
[2017-02-03] MEDS: CEFAZOLIN 1 GM/50 ML (PMX) 50 ML IVPB SCH (02:28)
[2017-02-03] MEDS: metroNIDAZOLE 500 MG/NS (PMX) 100 ML IVPB SCH (02:30)
[2017-02-03] MEDS ORDERED: LORAZEPAM 2 MG INJ ONE (03:52)
[2017-02-03] MEDS ORDERED: LORAZEPAM 2 MG INJ IV ONE (04:00)
[2017-02-03 05:06] LABS: ABNORMAL IP MESSAGE 1; BASOPHIL # 0.1 10^3/ul (0.0-0.1); BASOPHILS % 0.3 % (0.0-2.0); HEMATOCRIT 36.9 % (37.0-47.0); HEMOGLOBIN 12.8 g/dl (12.0-16.0); LYMPHOCYTES # 0.7 10^3/ul (0.8-2.9); LYMPHOCYTES % 2.4 % (15.0-51.0); MEAN CORPUSCULAR HEMOGLOBIN 28.5 pg (29.0-33.0); MEAN CORPUSCULAR HGB CONC 34.7 g/dl (32.0-37.0); MEAN CORPUSCULAR VOLUME 82.2 fl (82.0-101.0); MEAN PLATELET VOLUME 12.4 fl (7.4-10.4); MONOCYTE # 0.8 10^3/ul (0.3-0.9); MONOCYTES % 2.8 % (0.0-11.0); NEUTROPHIL # 25.7 10^3/ul (1.6-7.5); NEUTROPHILS % 93.8 % (39.0-77.0); NUCLEATED RED BLOOD CELLS% 0.1 /100WBC (0.0-0.0); PLATELET COUNT 252 10^3/UL (140-415); RED BLOOD COUNT 4.49 10^6/ul (4.20-5.40); RED CELL DISTRIBUTION WIDTH 16.2 % (11.5-14.5); WHITE BLOOD COUNT 27.4 10^3/ul (4.8-10.8)
[2017-02-03] MEDS: D5-LR + KCL 20 MEQ 1,000 ML IV SCH ×4 (05:06→18:16)
[2017-02-03] MEDS: VASOPRESSIN 60 UNIT in DEXTROSE 5% 57 ML IV SCH ×2 (05:07→18:18)
[2017-02-03 05:20] LABS: POSITIVE DIFF @See below
[2017-02-03 05:32] LABS: MAGNESIUM 1.8 mg/dl (1.7-2.5)
[2017-02-03 05:33] LABS: INR 1.12; PROTIME 14.4 Sec (12.2-14.2); PT RATIO 1.1
[2017-02-03 05:38] LABS: ALBUMIN 2.2 g/dl (3.3-4.9); ALBUMIN/GLOBULIN RATIO 1.29; BILIRUBIN,INDIRECT 0.3 mg/dl (0-1.1); BILIRUBIN,TOTAL 0.3 mg/dl (0.2-1.3); CALCIUM 7.4 mg/dl (8.4-10.2); CREATININE 0.78 mg/dl (0.44-1.00); POTASSIUM 4.9 mmol/L (3.5-5.1); TOTAL PROTEIN 3.9 g/dl (6.1-8.1)
[2017-02-03] MEDS ORDERED: ALBUMIN HUMAN 5% 250 ML IV ONE (07:00)
[2017-02-03] MEDS: TOLTERODINE (SR) 4 MG CAP PO SCH (07:50)
[2017-02-03] MEDS: POLYETHYLENE GLYCOL 17 GM PACKET PO SCH (07:50)
[2017-02-03] MEDS: DOCUSATE SODIUM 100 MG CAP PO SCH ×2 (07:50→20:38)
[2017-02-03 08:18] LABS: AADO2 Arterial 90.3 mmHg (7.0-24.0); Arterial Base Excess -5.7 mmol/L (-3.0-3); Arterial COHb 0.3 % (0.0-3.0); Arterial HCO3 16.8 mmol/L (22.0-26.0); Arterial MetHb 0.5 % (0.0-1.5); Arterial Total Hemglobin 13.2 g/dl (12.0-18.0); MODE VENT - AC
--- NOTE | 2017-02-03 08:32 | RADRPT ---
PROCEDURE: XR Chest. CLINICAL INDICATION: Chest pain. Endotracheal tube evaluation. TECHNIQUE: Single AP portable chest. COMPARISON: No prior Chest x-ray FINDINGS: The cardiomediastinal silhouette is within normal limits of size. Hypoventilatory changes. Endotrach eal tube tip 4.8 cm above the christophe. NG tube in stable position. Hypoventilatory changes with crowd ing of vascular structures. Bibasilar subsegmental atelectasis. Right IJ catheter in stable position . No pneumothorax. The osseous structures and soft tissues are unremarkable. IMPRESSION: 1. Hypoinflation. No pleural effusion or focal consolidation. 2. Support devices in stable and satisfactory position. . RPTAT:AAJJ Physician Monica Date Time Electronically viewed and signed by Physician Monica on 02/03/2017 08:32 CAMRYN/
[2017-02-03] MEDS: PROPOFOL 100 ML IV SCH ×2 (09:07→20:38)
[2017-02-03 09:53] LABS: HEMATOCRIT 36.4 % (37.0-47.0); HEMOGLOBIN 12.4 g/dl (12.0-16.0)
[2017-02-03] MEDS: PHENYLephrine 160 MG in DEXTROSE 5% 484 ML IV SCH ×2 (10:50→20:32)
--- NOTE | 2017-02-03 11:09 | CONS ---
Date/Time of Note Date/Time of Note DATE: 02/03/17 TIME: 11:04 Assessment/Plan Assessment/Plan Additional Assessment/Plan Chest x-ray was reviewed from today which is essentially unremarkable. Ventilator setting; AC of 14, tidal volume 500, PEEP of 5, 40% FiO2. Patient is currently on propofol at 5 mics per kilogram per minute, Saulo- Synephrine drip at 280 mics per minute. Assessment and recommendations; 1. Patient status post laparotomy with discovery of likely advanced stage IV ovarian cancer. 2. Patient currently is being mildly hyperventilated. 3. Persistent hypotension. Continue current supportive care. Ventilator settings have been adjusted. Consultation Date/Type/Reason Admit Date/Time Jan 22, 2017 at 14:12 Date of Consultation: Feb 03, 2017 Type of Consultation: Pulmonary/critical care Reason for Consultation Pulmonary consultation requested for evaluation of postop respiratory failure. History of presenting illness; patient is a 56-year-old lady who was admitted on the of this month with complaints of abdominal pain. The patient has had a presumptive diagnosis of ovarian cancer but at that point no biopsy was done. The patient yesterday underwent laparotomy with bilateral salpingo- oophorectomy and hysterectomy as well as splenectomy. Patient also has had paracentesis done prior to surgery. By the time I saw the patient the patient is orally intubated, tachypneic and tachycardic. Patient also is sedated. Past medical history; 1. Recently diagnosed with what appears to be stage IV ovarian cancer. Medications; reviewed. Allergies; none. Social history; patient has been a former smoker. Family history; patient does have a supportive family 1 of her sons is present in the room. Occupational history; not available. Review of systems; unable to be obtained. General exam; middle-aged woman, orally intubated, sedated, appearing mildly tachypneic. Constitutional: no complaints, other (Patient complaining of abdominal pain she has been taking the GoLYTELY in preparation for her surgery tomorrow by Dr. Ramirez) Eyes: no complaints ENT: no complaints Respiratory: no complaints Cardiovascular: no complaints Gastrointestinal: pain Genitourinary: other (Cullen catheter in place and draining clear dark urine) Musculoskeletal: no complaints Neurologic: other (Patient is having hard time remembering. She remembers me talking to her about replacing the JJ stents in the future but she does not remember that she does have the JJ stents) Endocrine: no complaints Psychological: anxiety Past Surgical History Past Surgical Hx: other (Surgery on her leg from a fractured bone) Social History Alcohol Use: occasionally Smoking Status: Former smoker Exam/Review of Systems Vital Signs Vitals Vital Signs Date Time Temp Pulse Resp B/P Pulse Ox O2 Delivery O2 Flow Rate FiO2 02/03/17 10:15 152 23 85/65 100 02/03/17 10:00 Mechanical Ventilator 02/03/17 08:00 40 02/03/17 08:00 99.3 01/31/17 04:08 2.0 Intake and Output 02/02/17 02/02/17 02/03/17 15:00 23:00 07:00 Intake Total 1997 ml 3020.00 ml 1110.0 ml Output Total 350 ml 3020 ml 1025 ml Balance 1647 ml 0 ml 85.0 ml Exam HEENT exam; supple neck, no JVD. No lymphadenopathy. Midline trachea. No thyromegaly. Orally intubated. Pupils are small bilaterally. Patient has fair dentition. Chest exam; clear to auscultation. S1-S2 audible, no murmurs. Regular rhythm. Tachycardic. Abdomen exam; soft, bowel sounds are absent. Midline dressing in place. Abdominal drains are in place. Extremity exam; no peripheral edema. Pulses 1+ bilaterally. RELIGIOUS EDUCATOR exam; patient is sedated. Results Result Diagram: 02/03/17 0929 02/03/17 0400 Results 24 hrs Laboratory Tests Test 02/02/17 16:27 02/02/17 18:20 02/02/17 18:26 02/02/17 19:30 White Blood Count 27.6 #H 35.8 #H Red Blood Count 3.37 #L 4.07 #L Hemoglobin 9.2 L 11.6 #L 3.8 #*L Hematocrit 28.0 L 34.3 #L 12.3 #L Mean Corpuscular Volume 83.1 84.3 Mean Corpuscular Hemoglobin 27.3 L 28.5 L Mean Corpuscular Hemoglobin Concent 32.9 33.8 Red Cell Distribution Width 17.3 H 16.7 H Platelet Count 259 # 241 Mean Platelet Volume 10.8 H 11.2 H Neutrophils % 89.8 H Segmented Neutrophils % (Manual) 84 H Band Neutrophils % (Manual) 10 H Lymphocytes % 4.2 L Lymphocytes % (Manual) 3 L Monocytes % 4.4 Monocytes % (Manual) 3 Eosinophils % 0.0 Basophils % 0.3 Nucleated Red Blood Cells % 0.0 0.0 Neutrophils # 32.2 H Neutrophils # (Manual) 23.9 H Band Neutrophils # 2.7 H Absolute Lymphocytes (Manual) 0.8 Lymphocytes # 1.5 Monocytes # 1.6 H Absolute Monocytes (Manual) 0.8 Eosinophils # 0.0 Basophils # 0.1 Nucleated Red Blood Cells # 0.0 Platelet Estimate NORMAL Giant Platelets 2 H Sodium Level 140 139 Potassium Level 4.6 4.3 Chloride Level 109 109 Carbon Dioxide Level 20 L 20 L Anion Gap 16 14 Blood Urea Nitrogen 13 14 Creatinine 0.63 0.74 Glucose Level 124 # 132 Calcium Level 7.8 L 7.8 L Prothrombin Time 14.8 #H Prothrombin Time Ratio 1.2 INR International Normalized Ratio 1.16 Activated Partial Thromboplast Time 26.5 Total Bilirubin 0.5 Direct Bilirubin 0.00 Indirect Bilirubin 0.5 Aspartate Amino Transf (AST/SGOT) 76 H Alanine Aminotransferase (ALT/SGPT) 74 H Alkaline Phosphatase 42 Total Protein 4.1 L Albumin 2.1 L Globulin 2.00 Albumin/Globulin Ratio 1.05 Phosphorus Level 7.0 H Magnesium Level 1.4 L Test 02/02/17 20:30 02/02/17 23:06 02/03/17 04:00 02/03/17 05:15 Blood Gas Specimen Source Blood arterial Arterial Blood Date Drawn 02/02/2017 8:33:58 PM Arterial Blood pH (Temp corrected) 7.312 L Arterial Blood pCO2 (Temp correct) 32.3 L Arterial Blood pO2 (Temp corrected) 540.7 H Arterial Blood HCO3 16.0 L Arterial Blood Base Excess -9.1 L Arterial Blood Oxygen Saturation 99.4 H Bi Test N/A Arterial Blood Gas Puncture Site A-Line Arterial Blood Carboxyhemoglobin 0.3 Arterial Blood Methemoglobin 0.5 Blood Gas A-a O2 Differential 140.0 H Oxyhemoglobin Percent 98.6 Total Hemoglobin 13.0 Blood Gas Temperature 37.0 Blood Gas Respiration Rate 14.0 Blood Gas Actual Respiration Rate 20 Blood Gas Modality VENT - AC FiO2 100.0 Blood Gas Tidal Volume 500.0 Blood Gas Low PEEP Setting 5.0 Blood Gas Inspiratory Pressure 16.0 Blood Gas Notified Whom BR Blood Gas Notified Time 02/02/2017 8:38:40 PM Hemoglobin 11.7 #L 12.8 Hematocrit 34.3 #L 36.9 L Platelet Count 199 252 Prothrombin Time 13.8 14.4 H Prothrombin Time Ratio 1.1 1.1 INR International Normalized Ratio 1.06 1.12 Activated Partial Thromboplast Time 27.5 29.0 Thrombin Time 16.1 Fibrinogen 307.0 Plasma Fibrin Degradation Products D-Dimer 8118.15 H D-Dimer Comment White Blood Count 27.4 #H Red Blood Count 4.49 Mean Corpuscular Volume 82.2 Mean Corpuscular Hemoglobin 28.5 L Mean Corpuscular Hemoglobin Concent 34.7 Red Cell Distribution Width 16.2 H Mean Platelet Volume 12.4 H Neutrophils % 93.8 H Lymphocytes % 2.4 L Monocytes % 2.8 Eosinophils % 0.0 Basophils % 0.3 Nucleated Red Blood Cells % 0.1 H Neutrophils # 25.7 H Lymphocytes # 0.7 L Monocytes # 0.8 Eosinophils # 0.0 Basophils # 0.1 Nucleated Red Blood Cells # 0.0 Sodium Level 141 Potassium Level 4.9 Chloride Level 111 H Carbon Dioxide Level 24 Anion Gap 11 Blood Urea Nitrogen 15 Creatinine 0.78 Glucose Level 192 Calcium Level 7.4 L Phosphorus Level 5.0 #H Magnesium Level 1.8 Total Bilirubin 0.3 Direct Bilirubin 0.00 Indirect Bilirubin 0.3 Aspartate Amino Transf (AST/SGOT) 111 H Alanine Aminotransferase (ALT/SGPT) 110 H Alkaline Phosphatase 43 Total Protein 3.9 L Albumin 2.2 L Globulin 1.70 Albumin/Globulin Ratio 1.29 Lab Scanned Report BLOOD TRANSFUSION Test 02/03/17 07:00 02/03/17 09:29 Blood Gas Specimen Source Blood arterial Arterial Blood Date Drawn 02/03/2017 7:30:34 AM Arterial Blood pH (Temp corrected) 7.440 Arterial Blood pCO2 (Temp correct) 25.3 L Arterial Blood pO2 (Temp corrected) 165.8 H Arterial Blood HCO3 16.8 L Arterial Blood Base Excess -5.7 L Arterial Blood Oxygen Saturation 98.8 H Bi Test N/A Arterial Blood Gas Puncture Site A-Line Arterial Blood Carboxyhemoglobin 0.3 Arterial Blood Methemoglobin 0.5 Blood Gas A-a O2 Differential 90.3 H Oxyhemoglobin Percent 98.0 Total Hemoglobin 13.2 Blood Gas Temperature 37.0 Blood Gas Respiration Rate 14.0 Blood Gas Actual Respiration Rate 25 Blood Gas Modality VENT - AC FiO2 40.0 Blood Gas Tidal Volume 500.0 Blood Gas Low PEEP Setting 5.0 Blood Gas Notified Whom JLD Blood Gas Notified Time 02/03/2017 8:18:29 AM Hemoglobin 12.4 Hematocrit 36.4 L Medications Medications Current Medications Ondansetron HCl (Zofran Tab) 4 mg Q6H PRN PO NAUSEA AND/OR VOMITING; Start at 16:00 Acetaminophen (Tylenol Tab) 650 mg Q6H PRN PO PAIN LEVEL 1-3 OR FEVER Last administered on 01/28/17 06:20; Admin Dose 650 MG; Start 01/22/17 at 16:00 Docusate Sodium (Colace) 100 mg Q12H PRN PO CONSTIPATION; Start 01/22/17 at 16 :00 Magnesium Hydroxide (Milk Of Mag) 30 ml DAILY PRN PO CONSTIPATION Last administered on 01/31/17 07:38; Admin Dose 30 ML; Start 01/22/17 at 16:00 Bisacodyl (Dulcolax) 5 mg DAILY PRN PO CONSTIPATION Last administered on 05:07; Admin Dose 5 MG; Start 01/22/17 at 16:00 Polyethylene Glycol (Miralax) 17 gm DAILY PO Last administered on 02/01/17 08 :37; Admin Dose 17 GM; Start 01/26/17 at 15:30 Docusate Sodium (Colace) 100 mg BID PO Last administered on 02/01/17 20:25; Admin Dose 100 MG; Start 01/26/17 at 15:30 Sodium Biphosphate/ Sodium Phosphate (Fleet Enema) [address] CONSTIPATION Last administered on 01/27/17 06:17; Admin Dose 133 ML; Start at 20:30 Tolterodine Tartrate (Detrol La) 4 mg DAILY PO Last administered on 02/01/17 08:37; Admin Dose 4 MG; Start 01/27/17 at 15:30 Morphine Sulfate 2 mg 2 mg Q2H PRN IV PAIN LEVEL 7-10 Last administered on 08:44; Admin Dose 2 MG; Start 01/28/17 at 14:00 Ondansetron HCl 8 mg/Dextrose 54 ml @ 108 mls/hr Q6H PRN IV NAUSEA AND/OR VOMITING; Start 01/31/17 at 12:00 Cefazolin Sodium 50 ml @ 100 mls/hr Q8H IVPB Last administered on 02/03/17 02:28; Admin Dose 100 MLS/HR; Start 02/02/17 at 11:30; Stop 02/03/17 at 11:29 Metronidazole (Flagyl 500 Mg (Pmx)) 100 ml @ 100 mls/hr Q8H IVPB Last administered on 02/03/17 02:30; Admin Dose 100 MLS/HR; Start 02/02/17 at 11: 30; Stop 02/03/17 at 11:29 Hydromorphone HCl (Dilaudid) 1 mg Q2H PRN IV PAIN LEVEL 6-10 Last administered on 02/02/17 21:43; Admin Dose 1 MG; Start 02/02/17 at 11:30 Diphenhydramine HCl 25 mg 25 mg Q6H PRN IV ITCHING Last administered on 23:55; Admin Dose 25 MG; Start 02/02/17 at 11:30 Sodium Chloride 1,000 ml @ 10 mls/hr Q24H IV Last administered on 02/02/17 17:31; Admin Dose 10 MLS/HR; Start 02/02/17 at 17:31 Epinephrine 4 mg/ Dextrose 250 ml @ 3.75 mls/hr PROTOCOL IV ; Start 02/02/17 at 18:00 Vasopressin 60 unit/Dextrose 60 ml @ 0 mls/hr Q12H IV ; Start 02/02/17 at 18:30 Potassium Cl/ Dextrose/Lact Ringer's 1,000 ml @ 150 mls/hr Q6H40M IV Last administered on 02/03/17 05:06; Admin Dose 150 MLS/HR; Start 02/02/17 at 19: 30 Norepinephrine 32 mg/Dextrose 250 ml @ 0.46 mls/hr TITRATE IV ; Start at 18:30 Phenylephrine HCl 160 mg/Dextrose 500 ml @ 18.75 mls/ hr TITRATE IV Last administered on 02/03/17 10:50; Admin Dose 52.5 MLS/HR; Start 02/02/17 at 18: 30 Propofol (Diprivan) 100 ml @ 1.986 mls/ hr Q12H IV Last administered on 09:07; Admin Dose 1.986 MLS/HR; Start 02/03/17 at 09:00 DARREL DARYB Feb 03, 2017 11:09
--- NOTE | 2017-02-03 14:15 | PN ---
Date/Time of Note Date/Time of Note DATE: 02/03/17 TIME: 14:15 Assessment/Plan VTE Prophylaxis VTE Prophylaxis Intervention: SCD's Lines/Catheters IV [facility] Type [facility] Central Line Central line still needed: Yes Urinary Cath still in place: Yes Reason Cath still needed: urinary retention Assessment/Plan Assessment/Plan 56 yo F with known stage 4 ovarian Ca here admitted for abd pain from malignant ascites sp para 10.19. hospitalization also notable for hydro AUR from her ascites, sp ureteral stenting also sp cytoreduction 10.30. PLAN wean pressors as tolerated extubation as per pulm onc also on consult though patient already has an outpatient oncologist. AUR: cont sen. critical care time: 30 minutes Exam/Review of Systems Vital Signs Vitals Vital Signs Date Time Temp Pulse Resp B/P Pulse Ox O2 Delivery O2 Flow Rate FiO2 02/03/17 13:45 149 24 97/66 100 02/03/17 13:00 Mechanical Ventilator 02/03/17 12:00 35 02/03/17 12:00 98.3 01/31/17 04:08 2.0 Intake and Output 02/02/17 02/02/17 02/03/17 14:59 22:59 06:59 Intake Total 1692 ml 3087.50 ml 1347.5 ml Output Total 350 ml 2970 ml 1075 ml Balance 1342 ml 117.50 ml 272.5 ml Results Result Diagram: 02/03/17 0929 02/03/17 0400 Results 24 hrs Laboratory Tests Test 02/02/17 16:27 02/02/17 18:20 02/02/17 18:26 02/02/17 19:30 White Blood Count 27.6 #H 35.8 #H Red Blood Count 3.37 #L 4.07 #L Hemoglobin 9.2 L 11.6 #L 3.8 #*L Hematocrit 28.0 L 34.3 #L 12.3 #L Mean Corpuscular Volume 83.1 84.3 Mean Corpuscular Hemoglobin 27.3 L 28.5 L Mean Corpuscular Hemoglobin Concent 32.9 33.8 Red Cell Distribution Width 17.3 H 16.7 H Platelet Count 259 # 241 Mean Platelet Volume 10.8 H 11.2 H Neutrophils % 89.8 H Segmented Neutrophils % (Manual) 84 H Band Neutrophils % (Manual) 10 H Lymphocytes % 4.2 L Lymphocytes % (Manual) 3 L Monocytes % 4.4 Monocytes % (Manual) 3 Eosinophils % 0.0 Basophils % 0.3 Nucleated Red Blood Cells % 0.0 0.0 Neutrophils # 32.2 H Neutrophils # (Manual) 23.9 H Band Neutrophils # 2.7 H Absolute Lymphocytes (Manual) 0.8 Lymphocytes # 1.5 Monocytes # 1.6 H Absolute Monocytes (Manual) 0.8 Eosinophils # 0.0 Basophils # 0.1 Nucleated Red Blood Cells # 0.0 Platelet Estimate NORMAL Giant Platelets 2 H Sodium Level 140 139 Potassium Level 4.6 4.3 Chloride Level 109 109 Carbon Dioxide Level 20 L 20 L Anion Gap 16 14 Blood Urea Nitrogen 13 14 Creatinine 0.63 0.74 Glucose Level 124 # 132 Calcium Level 7.8 L 7.8 L Prothrombin Time 14.8 #H Prothrombin Time Ratio 1.2 INR International Normalized Ratio 1.16 Activated Partial Thromboplast Time 26.5 Total Bilirubin 0.5 Direct Bilirubin 0.00 Indirect Bilirubin 0.5 Aspartate Amino Transf (AST/SGOT) 76 H Alanine Aminotransferase (ALT/SGPT) 74 H Alkaline Phosphatase 42 Total Protein 4.1 L Albumin 2.1 L Globulin 2.00 Albumin/Globulin Ratio 1.05 Phosphorus Level 7.0 H Magnesium Level 1.4 L Test 02/02/17 20:30 02/02/17 23:06 02/03/17 04:00 02/03/17 05:15 Blood Gas Specimen Source Blood arterial Arterial Blood Date Drawn 02/02/2017 8:33:58 PM Arterial Blood pH (Temp corrected) 7.312 L Arterial Blood pCO2 (Temp correct) 32.3 L Arterial Blood pO2 (Temp corrected) 540.7 H Arterial Blood HCO3 16.0 L Arterial Blood Base Excess -9.1 L Arterial Blood Oxygen Saturation 99.4 H Bi Test N/A Arterial Blood Gas Puncture Site A-Line Arterial Blood Carboxyhemoglobin 0.3 Arterial Blood Methemoglobin 0.5 Blood Gas A-a O2 Differential 140.0 H Oxyhemoglobin Percent 98.6 Total Hemoglobin 13.0 Blood Gas Temperature 37.0 Blood Gas Respiration Rate 14.0 Blood Gas Actual Respiration Rate 20 Blood Gas Modality VENT - AC FiO2 100.0 Blood Gas Tidal Volume 500.0 Blood Gas Low PEEP Setting 5.0 Blood Gas Inspiratory Pressure 16.0 Blood Gas Notified Whom BR Blood Gas Notified Time 02/02/2017 8:38:40 PM Hemoglobin 11.7 #L 12.8 Hematocrit 34.3 #L 36.9 L Platelet Count 199 252 Prothrombin Time 13.8 14.4 H Prothrombin Time Ratio 1.1 1.1 INR International Normalized Ratio 1.06 1.12 Activated Partial Thromboplast Time 27.5 29.0 Thrombin Time 16.1 Fibrinogen 307.0 Plasma Fibrin Degradation Products D-Dimer 8118.15 H D-Dimer Comment White Blood Count 27.4 #H Red Blood Count 4.49 Mean Corpuscular Volume 82.2 Mean Corpuscular Hemoglobin 28.5 L Mean Corpuscular Hemoglobin Concent 34.7 Red Cell Distribution Width 16.2 H Mean Platelet Volume 12.4 H Neutrophils % 93.8 H Lymphocytes % 2.4 L Monocytes % 2.8 Eosinophils % 0.0 Basophils % 0.3 Nucleated Red Blood Cells % 0.1 H Neutrophils # 25.7 H Lymphocytes # 0.7 L Monocytes # 0.8 Eosinophils # 0.0 Basophils # 0.1 Nucleated Red Blood Cells # 0.0 Sodium Level 141 Potassium Level 4.9 Chloride Level 111 H Carbon Dioxide Level 24 Anion Gap 11 Blood Urea Nitrogen 15 Creatinine 0.78 Glucose Level 192 Calcium Level 7.4 L Phosphorus Level 5.0 #H Magnesium Level 1.8 Total Bilirubin 0.3 Direct Bilirubin 0.00 Indirect Bilirubin 0.3 Aspartate Amino Transf (AST/SGOT) 111 H Alanine Aminotransferase (ALT/SGPT) 110 H Alkaline Phosphatase 43 Total Protein 3.9 L Albumin 2.2 L Globulin 1.70 Albumin/Globulin Ratio 1.29 Lab Scanned Report BLOOD TRANSFUSION Test 02/03/17 07:00 02/03/17 09:29 Blood Gas Specimen Source Blood arterial Arterial Blood Date Drawn 02/03/2017 7:30:34 AM Arterial Blood pH (Temp corrected) 7.440 Arterial Blood pCO2 (Temp correct) 25.3 L Arterial Blood pO2 (Temp corrected) 165.8 H Arterial Blood HCO3 16.8 L Arterial Blood Base Excess -5.7 L Arterial Blood Oxygen Saturation 98.8 H Bi Test N/A Arterial Blood Gas Puncture Site A-Line Arterial Blood Carboxyhemoglobin 0.3 Arterial Blood Methemoglobin 0.5 Blood Gas A-a O2 Differential 90.3 H Oxyhemoglobin Percent 98.0 Total Hemoglobin 13.2 Blood Gas Temperature 37.0 Blood Gas Respiration Rate 14.0 Blood Gas Actual Respiration Rate 25 Blood Gas Modality VENT - AC FiO2 40.0 Blood Gas Tidal Volume 500.0 Blood Gas Low PEEP Setting 5.0 Blood Gas Notified Whom JLD Blood Gas Notified Time 02/03/2017 8:18:29 AM Hemoglobin 12.4 Hematocrit 36.4 L Medications Medications Current Medications Ondansetron HCl (Zofran Tab) 4 mg Q6H PRN PO NAUSEA AND/OR VOMITING; Start at 16:00 Acetaminophen (Tylenol Tab) 650 mg Q6H PRN PO PAIN LEVEL 1-3 OR FEVER Last administered on 01/28/17 06:20; Admin Dose 650 MG; Start 01/22/17 at 16:00 Docusate Sodium (Colace) 100 mg Q12H PRN PO CONSTIPATION; Start 01/22/17 at 16 :00 Magnesium Hydroxide (Milk Of Mag) 30 ml DAILY PRN PO CONSTIPATION Last administered on 01/31/17 07:38; Admin Dose 30 ML; Start 01/22/17 at 16:00 Bisacodyl (Dulcolax) 5 mg DAILY PRN PO CONSTIPATION Last administered on 05:07; Admin Dose 5 MG; Start 01/22/17 at 16:00 Polyethylene Glycol (Miralax) 17 gm DAILY PO Last administered on 02/01/17 08 :37; Admin Dose 17 GM; Start 01/26/17 at 15:30 Docusate Sodium (Colace) 100 mg BID PO Last administered on 02/01/17 20:25; Admin Dose 100 MG; Start 01/26/17 at 15:30 Sodium Biphosphate/ Sodium Phosphate (Fleet Enema) 133 ml DAILY PRN [place] CONSTIPATION Last administered on 01/27/17 06:17; Admin Dose 133 ML; Start at 20:30 Tolterodine Tartrate (Detrol La) 4 mg DAILY PO Last administered on 02/01/17 08:37; Admin Dose 4 MG; Start 01/27/17 at 15:30 Morphine Sulfate 2 mg 2 mg Q2H PRN IV PAIN LEVEL 7-10 Last administered on 13:03; Admin Dose 2 MG; Start 01/28/17 at 14:00 Ondansetron HCl/ Dextrose (Zofran Inj/D5W) 54 ml @ 108 mls/hr Q6H PRN IV NAUSEA AND/OR VOMITING; Start 01/31/17 at 12:00 Hydromorphone HCl (Dilaudid) 1 mg Q2H PRN IV PAIN LEVEL 6-10 Last administered on 02/02/17 21:43; Admin Dose 1 MG; Start 02/02/17 at 11:30 Diphenhydramine HCl 25 mg 25 mg Q6H PRN IV ITCHING Last administered on 23:55; Admin Dose 25 MG; Start 02/02/17 at 11:30 Sodium Chloride 1,000 ml @ 10 mls/hr Q24H IV Last administered on 02/02/17 17:31; Admin Dose 10 MLS/HR; Start 02/02/17 at 17:31 Epinephrine 4 mg/ Dextrose 250 ml @ 3.75 mls/hr PROTOCOL IV ; Start 02/02/17 at 18:00 Vasopressin 60 unit/Dextrose 60 ml @ 0 mls/hr Q12H IV ; Start 02/02/17 at 18:30 Potassium Cl/ Dextrose/Lact Ringer's 1,000 ml @ 150 mls/hr Q6H40M IV Last administered on 02/03/17 11:42; Admin Dose 150 MLS/HR; Start 02/02/17 at 19: 30 Norepinephrine 32 mg/Dextrose 250 ml @ 0.46 mls/hr TITRATE IV ; Start at 18:30 Phenylephrine HCl 160 mg/Dextrose 500 ml @ 18.75 mls/ hr TITRATE IV Last administered on 02/03/17 10:50; Admin Dose 52.5 MLS/HR; Start 02/02/17 at 18: 30 Propofol (Diprivan) 100 ml @ 1.986 mls/ hr Q12H IV Last administered on 09:07; Admin Dose 1.986 MLS/HR; Start 02/03/17 at 09:00 DAYANARA BROWN MD Feb 03, 2017 14:15
--- NOTE | 2017-02-03 14:54 | RADRPT ---
Vent Rate: 92 bpm RR Interval: 0 msec NH Interval: 150 msec QRS Duration: 84 msec QT Interval: 350 msec QTC Interval: 432 msec P-R-T Howard: 36 - 48 - 18 degrees Normal sinus rhythm Low voltage QRS Cannot rule out Anterior infarct , age undetermined Abnormal ECG Electronically Signed By: Moris Shi [id number]
[2017-02-03 16:22] LABS: PATH REVIEW CH
--- NOTE | 2017-02-03 16:38 | OPR ---
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 Ramirez Foundry Molder: Zeina Santiago Anesthesia: General Indications for surgery: The patient is a 56- year old female with primary advanced stage ovarian cancer cancer on the basis of physical findings with elevated markers, radiographic Name: Ania Mai Medical findings, and symptoms of whom a cytoreduction was undertaken after addressing all options with risks and benefits. Findings and Summary After opening and exploration we removed 2800cc ascites and noted very extensive upper abdominal disease involving the omentum, spleen, diaphragm, and bowel with metastatic implants throughout the bowel and mesentery and pelvis which were predominantly addressed. The retroperitoneal nodes were not enlarged. At the completion of the procedure the patient was cytoreduced of massive disease and had residual disease 5-8 cm but was largely confluent especially involving the rectum and ileum with adjacent cecum as well as bladder and could be considered marginally optimal or suboptimal. Procedure: After being prepped and draped in the usual manner a midline skin incision was made of appropriate length. The electrocautery was then used to dissect thru the adipose tissue to the level of the fascia. The fascia was incised sharply and the peritoneum identified. At this time the peritoneum was elevated and incised with a Metzenbaum scissors. Upon entering the peritoneal cavity a total of 2800 cc of sero-sanguineous ascetic fluid was removed. At this time adhesions of intestine to the anterior abdominal wall were lysed with great care. We then searched the abdominal and pelvic contents and found that the left upper quadrant metastatic massive 30-40 cm disease involved the greater omentum with confluent disease involving the gastrocolic ligament, and splenic hilum (rank # 3). The right upper quadrant diseases involved approximately 100 % of the diaphragm surface and did involve the hepatic surface (rank #3). Exploration of the central abdomen revealed approximately >500 implants involving the mesentery, intestinal, and gutter regions with dimensions of 1 mm to 30 mm with confluent disease necessitating a bowel resection to be disease free (rank # 3 ). The pelvic disease consisted of involvement of both adnexia with the cul-de-sac involved with confluent disease involving the sigmoid colon (rank # 3). The Name: Ania [facility] largest metastatic disease was 40 cm in dimension and involved the omentum. We then placed an aortic Bellfower retractor. Consideration was given to closure but dilated bowel and symptoms mandated continuing. At this time, the omentum was dissected from the transverse colon with sharp dissection and electrocautery with either the bovie or the Ligasure or Thunderbeat when possible. Vessels to large to be managed by electrocautery or too close to the colon were clamped with a tonsil and transected and free-tied with 3- Vicryl suture. This procedure was carried out throughout the length of the omentum and transverse colon. We then entered the lesser sac bluntly and the gastro-colic ligament from the greater curvature of the stomach with electrocautery using the Thunderbeat and Ligasure. Any extensive disease in the lesser sac was ablated with an argon beam homeopathic doctor and also aspirated with a CUSA. At this time, the remaining attachments of the spleen to the greater curvature of the stomach were successively addressed with the Ligasure and Thunderbeat and bleeding areas were either hemoclipped or oversewn with interrupted 3-0 silk. The spleen with associated disease was mobilized by using electrocautery and the Ligasure or Thunderbeat to address the attachment to the kidney. Attachments to the splenic flexure of the colon were addressed with Ligasure or Thunderbeat or the endo-AURORA when appropriate if near serosa. Oozing areas in the stable line were either clipped, cauterized, or sutured with 3-0 silk depending on the proximity to adjacent colonic serosa. The splenic vessels were separately clipped and tied with 0-Vicryl. The specimen was removed en-bloc as proximity to the pancreas was noted without trauma. Adjacent metastatic disease was again ablated with the argon beam homeopathic doctor at appropriate wattage and aspirated with a CUSA as well. As there was very extensive metastatic disease on the right diaphragm it was addressed. Subsequently the mesentery and intestine was inspected and was heavily involved with all types of implants and confluent metastatic disease. The aforementioned metastatic disease was ablated with the argon beam homeopathic doctor at appropriate wattage [facility] if not near the serosa and the CUSA was used as well to reduce the burden of metastatic disease and in the process the burden was reduced but there was remaining confluent disease on the terminal ileum and cecum and the distal colon that was kinked and displaced by extensive pelvic disease. At this time, the pelvic disease was addressed. Because of the extensive disease involving the reproductive organs as well as the pelvic peritoneum a modified en -bloc procedure was planned with ureteral dissection and repositioning to facilitate resection and address the bilateral hydroureter. Initially the right round ligament was transected with a Gyrus bipolar cutting forceps uneventfully. The retroperitoneal area was opened laterally and the ureter was identified with a large hydroureter and the stent palpable. The ureter were dissected with a right angle clamp and lateralized with care and then further repositioned with a peanut and digital dissection due to adherent metastatic disease on the peritoneum and adjacent large mass. Of note, the bladder was largely coated and heavily involved with metastatic disease. After repositioning the ureter laterally away from the adherent peritoneum that was densely involved with disease, the probable infundibulopelvic ligament was transected by cauterizing with a Gyrus Ligasure and then clamping, transecting and suturing with 0- Vicryl suture. Attention was then addressed contralaterally in that the left round ligament was transected with an a Ligasure uneventfully. The retroperitoneal area was opened and the ureter was identified. The ureter with a persistent hydroureter and palpated stent were dissected with a right angle clamp and lateralized and then further repositioned with a peanut and digitally due to adherent metastatic disease on the peritoneum and adjacent mass. Of note the extent of confluent disease precluded distinguishing the adnexa from the uterus. After repositioning the ureter laterally away from the adherent peritoneum that was densely involved with disease, the probable IP ligament separate from sigmoid or ureter was transected by cauterizing with a Gyrus bipolar cutting forceps and then clamping , transecting and suturing with 0- Vicryl suture. The bladder flap was then Name: Ania Mai Medical minimally developed with a Bovie and Gyrus bipolar cutting forceps as it was replaced with metastatic disease and was ablated with the argon beam homeopathic doctor at appropriate wattage. At this time a large right angle clamp was used to dissect the ureters bilaterally, away from the uterine vessels in a manner used during a type-2 hysterectomy. The probable adnexa and masses were able do be mobilized digitally with care and with a right-angle clamp and peanut as well as digitally and much came from the cul-de-sac and was removed from some of the remnant of uterus with the Ligasure and from dense sigmoid colon adhesions with the endo-AURORA to minimize a risk. All specimens were removed with aspirated with a CUSA used to remove adjacent metastatic disease and after water placed the CUSA and argon beam homeopathic doctor were also used again. The aforementioned bladder issue was addressed with the CUSA to aspirated with a CUSA and argon beam homeopathic doctor. Additional implants were excised from the sigmoid and the muscular-serosal defects repaired with interrupted 3-0 silk suture. The integrity of the bladder was confirmed with Methylene blue and saline and the integrity of the rectum was confirmed with Methylene blue and saline and air with no leakage. At this time, after all packing was removed, the abdomen thoroughly irrigated, hemostasis confirmed, and RUQ, LUQ, and Pelvic Arnaud drains were placed. A figure of eight suture was placed at the caudal apex of the incision with 1- Prolene suture and used for exposure by elevating with a Pean clamp. 1- Prolene suture was used from the rostral apex and run to the supra-pubic area. The final suture was tied appropriately, after which the figure of eight was tied. The subcutaneous tissue was irrigated and the skin was closed with a deep layer of 3-0 Vicryl suture and 4-0 subcutaneous Monocryl suture. The sponge, needle, and instrument were correct two times. The estimated blood loss was 1200 ml The patient tolerated the procedure well and left the OR in good condition. It should be noted that most visible disease was resected, ablated, or aspirated. It should be noted that although most visible disease was resected, ablated, or aspirated, but residual disease of 5- 8 mm was Name: Ania Mai Medical left throughout the bowel and mesentery with evidence of confluent metastatic disease. Raul Ramirez M.D. Preoperative Diagnosis as above Postoperative Diagnosis as above Operation/Procedure Performed as above Surgeon see signature line Foundry Molder as above Anesthesia Type: general Estimated Blood Loss: other Transfusion 4 Specimen multiple Grafts/Implants none Tubes/Drains mult as above Complications none Indications as above Procedure Description as above RAUL RAMIREZ MD Feb 03, 2017 16:38
--- NOTE | 2017-02-03 17:26 | CONS ---
Date/Time of Note Date/Time of Note DATE: 02/03/17 TIME: 17:23 Assessment/Plan Assessment/Plan Chief Complaint/Hosp Course ADVANCED OVARIAN CANCER WITH MALIGNANT ASCITES AND PERITONEAL carcinomatosis Large conglomerate pelvic mass inseparable from the uterus, sigmoid colon and rectum containing clumps of calcification suspicious for calcified fibroids and containing cystic areas. Large amount of free intraperitoneal fluid measuring 25 HU with caking of the omentum compatible with carcinomatosis. Centralization of bowel without evidence of bowel obstruction. Moderately severe right hydronephrosis and hydroureter to the level of the pelvic mass. There is moderate left pelvocaliectasis without ureteral dilatation. The bladder is quite distended with urine. POST cystoscopy and insertion of bilateral JJ stents CT CHEST - EDOUARD, EXCEPT SMALL L PLEURAL EFFUSION CA 125- 337 POST debulking surgery AWAIT PATH ANEMIA, MICROCYTOSIS COMPLEX ANEMIA W-UP= + COMPONENT ACD DROP H/H POSTOP SERIAL H/H PRBC NEEDED PER STANDING ORDERS D/W RN malignant ascites sp para 10.19. hydro AUR from ascites, sp ureteral stenting. Problems: Consultation Date/Type/Reason Admit Date/Time Jan 22, 2017 at 14:12 Initial Consult Date 01/27/17 [facility] Referring Provider: KENTRELL MACIAS 24 HR Interval Summary Free Text/Dictation post op BLOODY DC FROM [facility], BUT IMPROVING POST 1 PRBC OVER NT AND 2 U FFP- H/H - IMPROVED ON VENT Exam/Review of Systems Vital Signs Vitals Vital Signs Date Time Temp Pulse Resp B/P Pulse Ox O2 Delivery O2 Flow Rate FiO2 02/03/17 16:45 152 24 103/67 99 02/03/17 16:00 98.0 Mechanical Ventilator 02/03/17 15:10 30 01/31/17 04:08 2.0 Intake and Output 02/02/17 02/02/17 02/03/17 15:00 23:00 07:00 Intake Total 1997 ml 3020.00 ml 1425.0 ml Output Total 350 ml 3020 ml 1025 ml Balance 1647 ml 0 ml 400.0 ml Exam HEENT exam; supple neck, no JVD. No lymphadenopathy. Midline trachea. No thyromegaly. Orally intubated. Pupils are small bilaterally. Patient has fair dentition. Chest exam; clear to auscultation. S1-S2 audible, no murmurs. Regular rhythm. Tachycardic. Abdomen exam; soft, bowel sounds are absent. Midline dressing in place. Abdominal drains are in place. Extremity exam; no peripheral edema. Pulses 1+ bilaterally. 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 Results Result Diagram: 02/03/17 0929 02/03/17 0400 Results 24 hrs Laboratory Tests Test 02/02/17 18:20 02/02/17 18:26 02/02/17 19:30 02/02/17 20:30 White Blood Count 35.8 #H Red Blood Count 4.07 #L Hemoglobin 11.6 #L 3.8 #*L Hematocrit 34.3 #L 12.3 #L Mean Corpuscular Volume 84.3 Mean Corpuscular Hemoglobin 28.5 L Mean Corpuscular Hemoglobin Concent 33.8 Red Cell Distribution Width 16.7 H Platelet Count 241 Mean Platelet Volume 11.2 H Neutrophils % 89.8 H Lymphocytes % 4.2 L Monocytes % 4.4 Eosinophils % 0.0 Basophils % 0.3 Nucleated Red Blood Cells % 0.0 Neutrophils # 32.2 H Lymphocytes # 1.5 Monocytes # 1.6 H Eosinophils # 0.0 Basophils # 0.1 Nucleated Red Blood Cells # 0.0 Prothrombin Time 14.8 #H Prothrombin Time Ratio 1.2 INR International Normalized Ratio 1.16 Activated Partial Thromboplast Time 26.5 Sodium Level 139 Potassium Level 4.3 Chloride Level 109 Carbon Dioxide Level 20 L Anion Gap 14 Blood Urea Nitrogen 14 Creatinine 0.74 Glucose Level 132 Calcium Level 7.8 L Total Bilirubin 0.5 Direct Bilirubin 0.00 Indirect Bilirubin 0.5 Aspartate Amino Transf (AST/SGOT) 76 H Alanine Aminotransferase (ALT/SGPT) 74 H Alkaline Phosphatase 42 Total Protein 4.1 L Albumin 2.1 L Globulin 2.00 Albumin/Globulin Ratio 1.05 Phosphorus Level 7.0 H Magnesium Level 1.4 L Blood Gas Specimen Source Blood arterial Arterial Blood Date Drawn 02/02/2017 8:33:58 PM Arterial Blood pH (Temp corrected) 7.312 L Arterial Blood pCO2 (Temp correct) 32.3 L Arterial Blood pO2 (Temp corrected) 540.7 H Arterial Blood HCO3 16.0 L Arterial Blood Base Excess -9.1 L Arterial Blood Oxygen Saturation 99.4 H Bi Test N/A Arterial Blood Gas Puncture Site A-Line Arterial Blood Carboxyhemoglobin 0.3 Arterial Blood Methemoglobin 0.5 Blood Gas A-a O2 Differential 140.0 H Oxyhemoglobin Percent 98.6 Total Hemoglobin 13.0 Blood Gas Temperature 37.0 Blood Gas Respiration Rate 14.0 Blood Gas Actual Respiration Rate 20 Blood Gas Modality VENT - AC FiO2 100.0 Blood Gas Tidal Volume 500.0 Blood Gas Low PEEP Setting 5.0 Blood Gas Inspiratory Pressure 16.0 Blood Gas Notified Whom BR Blood Gas Notified Time 02/02/2017 8:38:40 PM Test 02/02/17 23:06 02/03/17 04:00 02/03/17 05:15 02/03/17 07:00 Hemoglobin 11.7 #L 12.8 Hematocrit 34.3 #L 36.9 L Platelet Count 199 252 Prothrombin Time 13.8 14.4 H Prothrombin Time Ratio 1.1 1.1 INR International Normalized Ratio 1.06 1.12 Activated Partial Thromboplast Time 27.5 29.0 Thrombin Time 16.1 Fibrinogen 307.0 Plasma Fibrin Degradation Products D-Dimer 8118.15 H D-Dimer Comment White Blood Count 27.4 #H Red Blood Count 4.49 Mean Corpuscular Volume 82.2 Mean Corpuscular Hemoglobin 28.5 L Mean Corpuscular Hemoglobin Concent 34.7 Red Cell Distribution Width 16.2 H Mean Platelet Volume 12.4 H Neutrophils % 93.8 H Lymphocytes % 2.4 L Monocytes % 2.8 Eosinophils % 0.0 Basophils % 0.3 Nucleated Red Blood Cells % 0.1 H Neutrophils # 25.7 H Lymphocytes # 0.7 L Monocytes # 0.8 Eosinophils # 0.0 Basophils # 0.1 Nucleated Red Blood Cells # 0.0 Sodium Level 141 Potassium Level 4.9 Chloride Level 111 H Carbon Dioxide Level 24 Anion Gap 11 Blood Urea Nitrogen 15 Creatinine 0.78 Glucose Level 192 Calcium Level 7.4 L Phosphorus Level 5.0 #H Magnesium Level 1.8 Total Bilirubin 0.3 Direct Bilirubin 0.00 Indirect Bilirubin 0.3 Aspartate Amino Transf (AST/SGOT) 111 H Alanine Aminotransferase (ALT/SGPT) 110 H Alkaline Phosphatase 43 Total Protein 3.9 L Albumin 2.2 L Globulin 1.70 Albumin/Globulin Ratio 1.29 Lab Scanned Report BLOOD TRANSFUSION Blood Gas Specimen Source Blood arterial Arterial Blood Date Drawn 02/03/2017 7:30:34 AM Arterial Blood pH (Temp corrected) 7.440 Arterial Blood pCO2 (Temp correct) 25.3 L Arterial Blood pO2 (Temp corrected) 165.8 H Arterial Blood HCO3 16.8 L Arterial Blood Base Excess -5.7 L Arterial Blood Oxygen Saturation 98.8 H Bi Test N/A Arterial Blood Gas Puncture Site A-Line Arterial Blood Carboxyhemoglobin 0.3 Arterial Blood Methemoglobin 0.5 Blood Gas A-a O2 Differential 90.3 H Oxyhemoglobin Percent 98.0 Total Hemoglobin 13.2 Blood Gas Temperature 37.0 Blood Gas Respiration Rate 14.0 Blood Gas Actual Respiration Rate 25 Blood Gas Modality VENT - AC FiO2 40.0 Blood Gas Tidal Volume 500.0 Blood Gas Low PEEP Setting 5.0 Blood Gas Notified Whom JLD Blood Gas Notified Time 02/03/2017 8:18:29 AM Test 02/03/17 09:29 Hemoglobin 12.4 Hematocrit 36.4 L Medications Medications Current Medications Ondansetron HCl (Zofran Tab) 4 mg Q6H PRN PO NAUSEA AND/OR VOMITING; Start at 16:00 Acetaminophen (Tylenol Tab) 650 mg Q6H PRN PO PAIN LEVEL 1-3 OR FEVER Last administered on 01/28/17 06:20; Admin Dose 650 MG; Start 01/22/17 at 16:00 Docusate Sodium (Colace) 100 mg Q12H PRN PO CONSTIPATION; Start 01/22/17 at 16 :00 Magnesium Hydroxide (Milk Of Mag) 30 ml DAILY PRN PO CONSTIPATION Last administered on 01/31/17 07:38; Admin Dose 30 ML; Start 01/22/17 at 16:00 Bisacodyl (Dulcolax) 5 mg DAILY PRN PO CONSTIPATION Last administered on 05:07; Admin Dose 5 MG; Start 01/22/17 at 16:00 Polyethylene Glycol (Miralax) 17 gm DAILY PO Last administered on 02/01/17 08 :37; Admin Dose 17 GM; Start 01/26/17 at 15:30 Docusate Sodium (Colace) 100 mg BID PO Last administered on 02/01/17 20:25; Admin Dose 100 MG; Start 01/26/17 at 15:30 Sodium Biphosphate/ Sodium Phosphate (Fleet Enema) 133 ml DAILY PRN PA CONSTIPATION Last administered on 01/27/17 06:17; Admin Dose 133 ML; Start at 20:30 Tolterodine Tartrate (Detrol La) 4 mg DAILY PO Last administered on 02/01/17 08:37; Admin Dose 4 MG; Start 01/27/17 at 15:30 Morphine Sulfate 2 mg 2 mg Q2H PRN IV PAIN LEVEL 7-10 Last administered on 16:08; Admin Dose 2 MG; Start 01/28/17 at 14:00 Ondansetron HCl/ Dextrose (Zofran Inj/D5W) 54 ml @ 108 mls/hr Q6H PRN IV NAUSEA AND/OR VOMITING; Start 01/31/17 at 12:00 Hydromorphone HCl (Dilaudid) 1 mg Q2H PRN IV PAIN LEVEL 6-10 Last administered on 02/02/17 21:43; Admin Dose 1 MG; Start 02/02/17 at 11:30 Diphenhydramine HCl 25 mg 25 mg Q6H PRN IV ITCHING Last administered on 23:55; Admin Dose 25 MG; Start 02/02/17 at 11:30 Sodium Chloride 1,000 ml @ 10 mls/hr Q24H IV Last administered on 02/02/17 17:31; Admin Dose 10 MLS/HR; Start 02/02/17 at 17:31 Epinephrine 4 mg/ Dextrose 250 ml @ 3.75 mls/hr PROTOCOL IV ; Start 02/02/17 at 18:00 Vasopressin 60 unit/Dextrose 60 ml @ 0 mls/hr Q12H IV ; Start 02/02/17 at 18:30 Potassium Cl/ Dextrose/Lact Ringer's 1,000 ml @ 150 mls/hr Q6H40M IV Last administered on 02/03/17 11:42; Admin Dose 150 MLS/HR; Start 02/02/17 at 19: 30 Norepinephrine 32 mg/Dextrose 250 ml @ 0.46 mls/hr TITRATE IV ; Start at 18:30 Phenylephrine HCl 160 mg/Dextrose 500 ml @ 18.75 mls/ hr TITRATE IV Last administered on 02/03/17 10:50; Admin Dose 52.5 MLS/HR; Start 02/02/17 at 18: 30 Propofol (Diprivan) 100 ml @ 1.986 mls/ hr Q12H IV Last administered on t 09:07; Admin Dose 1.986 MLS/HR; Start 02/03/17 at 09:00 RAMIREZ YBARRA MD Feb 03, 2017 17:26
[2017-02-03] MEDS: SOD CHLORIDE 0.9% 1,000 ML IV SCH (18:16)
--- NOTE | 2017-02-03 20:41 | PN ---
Date/Time of Note Date/Time of Note DATE: 02/03/17 TIME: 20:35 Assessment/Plan VTE Prophylaxis VTE Prophylaxis Intervention: SCD's Lines/Catheters IV Catheter Type (from Nrs): Central Line Central line still needed: Yes Urinary Cath still in place: Yes Reason Cath still needed: urinary retention, other (indicate) Assessment/Plan Chief Complaint/Hosp Course Stage IIIc - IV ovarian cancer Problems: Assessment/Plan A- probable stage IIIc - IV ovarian cancer; improved relative to immediately postop P- Continue current rx Subjective 24 Hr Interval Summary Free Text/Dictation Minimally responsive. Exam/Review of Systems Vital Signs Vitals Vital Signs Date Time Temp Pulse Resp B/P Pulse Ox O2 Delivery O2 Flow Rate FiO2 02/03/17 18:15 150 26 111/68 99 02/03/17 18:00 Mechanical Ventilator 02/03/17 17:10 30 02/03/17 16:00 98.0 01/31/17 04:08 2.0 Intake and Output 02/02/17 02/02/17 02/03/17 15:00 23:00 07:00 Intake Total 1997 ml 3020.00 ml 1425.0 ml Output Total 350 ml 3020 ml 1025 ml Balance 1647 ml 0 ml 400.0 ml Exam Resp-some congestion CVS- NSR but tachycardia Abd- less distended, sedated Ext- NT mild edema Results Result Diagram: 02/03/17 0929 02/03/17 0400 Results 24 hrs Laboratory Tests Test 02/02/17 23:06 02/03/17 04:00 02/03/17 05:15 02/03/17 07:00 Hemoglobin 11.7 #L 12.8 Hematocrit 34.3 #L 36.9 L Platelet Count 199 252 Prothrombin Time 13.8 14.4 H Prothrombin Time Ratio 1.1 1.1 INR International Normalized Ratio 1.06 1.12 Activated Partial Thromboplast Time 27.5 29.0 Thrombin Time 16.1 Fibrinogen 307.0 Plasma Fibrin Degradation Products D-Dimer 8118.15 H D-Dimer Comment White Blood Count 27.4 #H Red Blood Count 4.49 Mean Corpuscular Volume 82.2 Mean Corpuscular Hemoglobin 28.5 L Mean Corpuscular Hemoglobin Concent 34.7 Red Cell Distribution Width 16.2 H Mean Platelet Volume 12.4 H Neutrophils % 93.8 H Lymphocytes % 2.4 L Monocytes % 2.8 Eosinophils % 0.0 Basophils % 0.3 Nucleated Red Blood Cells % 0.1 H Neutrophils # 25.7 H Lymphocytes # 0.7 L Monocytes # 0.8 Eosinophils # 0.0 Basophils # 0.1 Nucleated Red Blood Cells # 0.0 Sodium Level 141 Potassium Level 4.9 Chloride Level 111 H Carbon Dioxide Level 24 Anion Gap 11 Blood Urea Nitrogen 15 Creatinine 0.78 Glucose Level 192 Calcium Level 7.4 L Phosphorus Level 5.0 #H Magnesium Level 1.8 Total Bilirubin 0.3 Direct Bilirubin 0.00 Indirect Bilirubin 0.3 Aspartate Amino Transf (AST/SGOT) 111 H Alanine Aminotransferase (ALT/SGPT) 110 H Alkaline Phosphatase 43 Total Protein 3.9 L Albumin 2.2 L Globulin 1.70 Albumin/Globulin Ratio 1.29 Lab Scanned Report BLOOD TRANSFUSION Blood Gas Specimen Source Blood arterial Arterial Blood Date Drawn 02/03/2017 7:30:34 AM Arterial Blood pH (Temp corrected) 7.440 Arterial Blood pCO2 (Temp correct) 25.3 L Arterial Blood pO2 (Temp corrected) 165.8 H Arterial Blood HCO3 16.8 L Arterial Blood Base Excess -5.7 L Arterial Blood Oxygen Saturation 98.8 H Bi Test N/A Arterial Blood Gas Puncture Site A-Line Arterial Blood Carboxyhemoglobin 0.3 Arterial Blood Methemoglobin 0.5 Blood Gas A-a O2 Differential 90.3 H Oxyhemoglobin Percent 98.0 Total Hemoglobin 13.2 Blood Gas Temperature 37.0 Blood Gas Respiration Rate 14.0 Blood Gas Actual Respiration Rate 25 Blood Gas Modality VENT - AC FiO2 40.0 Blood Gas Tidal Volume 500.0 Blood Gas Low PEEP Setting 5.0 Blood Gas Notified Whom JLD Blood Gas Notified Time 02/03/2017 8:18:29 AM Test 02/03/17 09:29 Hemoglobin 12.4 Hematocrit 36.4 L Medications Medications Current Medications Ondansetron HCl (Zofran Tab) 4 mg Q6H PRN PO NAUSEA AND/OR VOMITING; Start at 16:00 Acetaminophen (Tylenol Tab) 650 mg Q6H PRN PO PAIN LEVEL 1-3 OR FEVER Last administered on 01/28/17t 06:20; Admin Dose 650 MG; Start 01/22/17 at 16:00 Docusate Sodium (Colace) 100 mg Q12H PRN PO CONSTIPATION; Start 01/22/17 at 16 :00 Magnesium Hydroxide (Milk Of Mag) 30 ml DAILY PRN PO CONSTIPATION Last administered on 01/31/17 07:38; Admin Dose 30 ML; Start 01/22/17 at 16:00 Bisacodyl (Dulcolax) 5 mg DAILY PRN PO CONSTIPATION Last administered on 05:07; Admin Dose 5 MG; Start 01/22/17 at 16:00 Polyethylene Glycol (Miralax) 17 gm DAILY PO Last administered on 02/01/17 08 :37; Admin Dose 17 GM; Start 01/26/17 at 15:30 Docusate Sodium (Colace) 100 mg BID PO Last administered on 02/01/17 20:25; Admin Dose 100 MG; Start 01/26/17 at 15:30 Sodium Biphosphate/ Sodium Phosphate (Fleet Enema) 133 ml DAILY PRN [place] CONSTIPATION Last administered on 01/27/17 06:17; Admin Dose 133 ML; Start at 20:30 Tolterodine Tartrate (Detrol La) 4 mg DAILY PO Last administered on 02/01/17 08:37; Admin Dose 4 MG; Start 01/27/17 at 15:30 Morphine Sulfate 2 mg 2 mg Q2H PRN IV PAIN LEVEL 7-10 Last administered on 18:16; Admin Dose 2 MG; Start 01/28/17 at 14:00 Ondansetron HCl/ Dextrose (Zofran Inj/D5W) 54 ml @ 108 mls/hr Q6H PRN IV NAUSEA AND/OR VOMITING; Start 01/31/17 at 12:00 Hydromorphone HCl (Dilaudid) 1 mg Q2H PRN IV PAIN LEVEL 6-10 Last administered on 02/02/17 21:43; Admin Dose 1 MG; Start 02/02/17 at 11:30 Diphenhydramine HCl 25 mg 25 mg Q6H PRN IV ITCHING Last administered on 23:55; Admin Dose 25 MG; Start 02/02/17 at 11:30 Sodium Chloride 1,000 ml @ 10 mls/hr Q24H IV Last administered on 02/03/17 18:16; Admin Dose 10 MLS/HR; Start 02/02/17 at 17:31 Epinephrine 4 mg/ Dextrose 250 ml @ 3.75 mls/hr PROTOCOL IV ; Start 02/02/17 at 18:00 Vasopressin 60 unit/Dextrose 60 ml @ 0 mls/hr Q12H IV ; Start 02/02/17 at 18:30 Potassium Cl/ Dextrose/Lact Ringer's 1,000 ml @ 150 mls/hr Q6H40M IV Last administered on 02/03/17 18:16; Admin Dose 150 MLS/HR; Start 02/02/17 at 19: 30 Norepinephrine 32 mg/Dextrose 250 ml @ 0.46 mls/hr TITRATE IV ; Start at 18:30 Phenylephrine HCl 160 mg/Dextrose 500 ml @ 18.75 mls/ hr TITRATE IV Last administered on 02/03/17 20:32; Admin Dose 52.5 MLS/HR; Start 02/02/17 at 18: 30 Propofol (Diprivan) 100 ml @ 1.986 mls/ hr Q12H IV Last administered on 09:07; Admin Dose 1.986 MLS/HR; Start 02/03/17 at 09:00 RAUL EUCEDA MD Feb 03, 2017 20:41
[2017-02-03 21:52] LABS: HEMATOCRIT 32.7 % (37.0-47.0)
[2017-02-04] VITALS (97 sets, daily range): BP systolic 87–137; BP diastolic 55–98; PULSE 122–153; RESP 18–37
[2017-02-04] MEDS: D5-LR + KCL 20 MEQ 1,000 ML IV SCH ×4 (00:39→20:00)
[2017-02-04] MEDS: MIDAZOLAM (DRIP) 50 mg/50 mL 50 ML IV SCH ×3 (01:09→12:17)
[2017-02-04] MEDS: morphine 2 MG INJ IV PRN ×3 (02:05→21:08)
[2017-02-04 05:38] LABS: ABNORMAL IP MESSAGE 1; HEMATOCRIT 30.3 % (37.0-47.0); HEMOGLOBIN 10.1 g/dl (12.0-16.0); MEAN CORPUSCULAR HEMOGLOBIN 28.6 pg (29.0-33.0); MEAN CORPUSCULAR HGB CONC 33.3 g/dl (32.0-37.0); MEAN CORPUSCULAR VOLUME 85.8 fl (82.0-101.0); MEAN PLATELET VOLUME 11.6 fl (7.4-10.4); NUCLEATED RED BLOOD CELLS% 0.2 /100WBC (0.0-0.0); PLATELET COUNT 226 10^3/UL (140-415); RED BLOOD COUNT 3.53 10^6/ul (4.20-5.40); RED CELL DISTRIBUTION WIDTH 18.4 % (11.5-14.5); WHITE BLOOD COUNT 32.5 10^3/ul (4.8-10.8)
[2017-02-04 05:43] LABS: POSITIVE DIFF @See below
[2017-02-04 06:12] LABS: CALCIUM 7.7 mg/dl (8.4-10.2); CREATININE 0.82 mg/dl (0.44-1.00); POTASSIUM 5.1 mmol/L (3.5-5.1)
[2017-02-04] MEDS: PHENYLephrine 160 MG in DEXTROSE 5% 484 ML IV SCH ×2 (06:21→15:44)
[2017-02-04 06:49] LABS: AADO2 Arterial 67.1 mmHg (7.0-24.0); Allen Test ACCEPTAB; Arterial Base Excess -3.6 mmol/L (-3.0-3); Arterial COHb 0.3 % (0.0-3.0); Arterial Fraction of Oxyhgb 96.6 % (93.0-99.0); Arterial HCO3 20.5 mmol/L (22.0-26.0); Arterial MetHb 0.5 % (0.0-1.5); Arterial Total Hemglobin 12.3 g/dl (12.0-18.0); Blood Gas Mean Airway Pressure 4.9; MODE VENT - AC
[2017-02-04] MEDS: VASOPRESSIN 60 UNIT in DEXTROSE 5% 57 ML IV SCH ×2 (08:00→18:30)
[2017-02-04] MEDS: ACETAMINOPHEN 650MG/20.3ML CUP GTB PRN ×2 (08:51→19:28)
[2017-02-04] MEDS: PROPOFOL 100 ML IV SCH ×2 (08:52→21:00)
[2017-02-04] MEDS: POLYETHYLENE GLYCOL 17 GM PACKET PO SCH (08:53)
[2017-02-04] MEDS: DOCUSATE SODIUM 100 MG CAP PO SCH ×2 (08:54→21:00)
[2017-02-04] MEDS: TOLTERODINE (SR) 4 MG CAP PO SCH (08:57)
--- NOTE | 2017-02-04 10:43 | CONS ---
Date/Time of Note Date/Time of Note DATE: 02/04/17 TIME: 10:40 Assessment/Plan Assessment/Plan Chief Complaint/Hosp Course ADVANCED OVARIAN CANCER WITH MALIGNANT ASCITES AND PERITONEAL carcinomatosis Large conglomerate pelvic mass inseparable from the uterus, sigmoid colon and rectum containing clumps of calcification suspicious for calcified fibroids and containing cystic areas. Large amount of free intraperitoneal fluid measuring 25 HU with caking of the omentum compatible with carcinomatosis. Centralization of bowel without evidence of bowel obstruction. Moderately severe right hydronephrosis and hydroureter to the level of the pelvic mass. There is moderate left pelvocaliectasis without ureteral dilatation. The bladder is quite distended with urine. POST cystoscopy and insertion of bilateral JJ stents CT CHEST - EDOUARD, EXCEPT SMALL L PLEURAL EFFUSION CA 125- 337 POST debulking surgery AWAIT PATH ANEMIA, MICROCYTOSIS COMPLEX ANEMIA W-UP= + COMPONENT ACD DROP H/H POSTOP SERIAL H/H PRBC NEEDED PER STANDING ORDERS D/W RN LEUKOCYTOSIS REACTIVE, PARTIALLY 2 TO Splenectomy malignant ascites sp para 10.19. hydro AUR from ascites, sp ureteral stenting. Problems: Consultation Date/Type/Reason Admit Date/Time Jan 22, 2017 at 14:12 Initial Consult Date 01/27/17 [facility] Referring Provider: KENTRELL MACIAS 24 HR Interval Summary Free Text/Dictation ALL NOTED Exam/Review of Systems Vital Signs Vitals Vital Signs Date Time Temp Pulse Resp B/P Pulse Ox O2 Delivery O2 Flow Rate FiO2 02/04/17 09:15 148 32 98 30 02/04/17 06:30 108/72 Mechanical Ventilator 02/04/17 04:00 100.1 Intake and Output 02/03/17 02/03/17 02/04/17 15:00 23:00 07:00 Intake Total 1715.032 ml 1803.432 ml 1517.34 ml Output Total 565 ml 960 ml 755 ml Balance 1150.032 ml 843.432 ml 762.34 ml Exam HEENT exam; supple neck, no JVD. No lymphadenopathy. Midline trachea. No thyromegaly. Orally intubated. Pupils are small bilaterally. Patient has fair dentition. Chest exam; clear to auscultation. S1-S2 audible, no murmurs. Regular rhythm. Tachycardic. Abdomen exam; soft, bowel sounds are absent. Midline dressing in place. Abdominal drains are in place. Extremity exam; no peripheral edema. Pulses 1+ bilaterally. CANVAS REPAIRER exam; patient is sedated. Results Result Diagram: 02/04/17 0500 02/04/17 0500 Results 24 hrs Laboratory Tests Test 02/03/17 21:36 02/04/17 00:21 02/04/17 05:00 Hemoglobin 11.0 L 10.1 L Hematocrit 32.7 L 30.3 L Blood Gas Specimen Source Blood arterial Arterial Blood Date Drawn 02/04/2017 12:40:55 AM Arterial Blood pH (Temp corrected) 7.394 Arterial Blood pCO2 (Temp correct) 34.4 L Arterial Blood pO2 (Temp corrected) 106.4 H Arterial Blood HCO3 20.5 L Arterial Blood Base Excess -3.6 L Arterial Blood Oxygen Saturation 97.4 Bi Test ACCEPTAB Arterial Blood Gas Puncture Site Right Radial Arterial Blood Carboxyhemoglobin 0.3 Arterial Blood Methemoglobin 0.5 Blood Gas A-a O2 Differential 67.1 H Oxyhemoglobin Percent 96.6 Total Hemoglobin 12.3 Blood Gas Temperature 37.0 Blood Gas Respiration Rate 16.0 Blood Gas Actual Respiration Rate 26 Blood Gas Modality VENT - AC FiO2 30.0 Blood Gas Tidal Volume 400.0 Blood Gas Mean Airway Pressure 4.9 Blood Gas Low PEEP Setting 5.0 Blood Gas Inspiratory Pressure 17.0 Blood Gas Notified Whom BL Blood Gas Notified Time 02/04/2017 12:52:20 AM White Blood Count 32.5 H Red Blood Count 3.53 #L Mean Corpuscular Volume 85.8 Mean Corpuscular Hemoglobin 28.6 L Mean Corpuscular Hemoglobin Concent 33.3 Red Cell Distribution Width 18.4 H Platelet Count 226 Mean Platelet Volume 11.6 H Neutrophils % Lymphocytes % Monocytes % Eosinophils % Basophils % Nucleated Red Blood Cells % 0.2 H Neutrophils # Lymphocytes # Monocytes # Eosinophils # Basophils # Nucleated Red Blood Cells # Sodium Level 143 Potassium Level 5.1 Chloride Level 112 H Carbon Dioxide Level 25 Anion Gap 11 Blood Urea Nitrogen 16 Creatinine 0.82 Glucose Level 160 Calcium Level 7.7 L Medications Medications Current Medications Ondansetron HCl (Zofran Tab) 4 mg Q6H PRN PO NAUSEA AND/OR VOMITING; Start at 16:00 Acetaminophen (Tylenol Tab) 650 mg Q6H PRN PO PAIN LEVEL 1-3 OR FEVER Last administered on 01/28/17 06:20; Admin Dose 650 MG; Start 01/22/17 at 16:00 Docusate Sodium (Colace) 100 mg Q12H PRN PO CONSTIPATION; Start 01/22/17 at 16 :00 Magnesium Hydroxide (Milk Of Mag) 30 ml DAILY PRN PO CONSTIPATION Last administered on 01/31/17 07:38; Admin Dose 30 ML; Start 01/22/17 at 16:00 Bisacodyl (Dulcolax) 5 mg DAILY PRN PO CONSTIPATION Last administered on 05:07; Admin Dose 5 MG; Start 01/22/17 at 16:00 Polyethylene Glycol (Miralax) 17 gm DAILY PO Last administered on 02/01/17 08 :37; Admin Dose 17 GM; Start 01/26/17 at 15:30 Docusate Sodium (Colace) 100 mg BID PO Last administered on 02/03/17 20:38; Admin Dose 100 MG; Start 01/26/17 at 15:30 Sodium Biphosphate/ Sodium Phosphate (Fleet Enema) 133 ml DAILY PRN [place] CONSTIPATION Last administered on 01/27/17 06:17; Admin Dose 133 ML; Start at 20:30 Tolterodine Tartrate (Detrol La) 4 mg DAILY PO Last administered on 02/01/17 08:37; Admin Dose 4 MG; Start 01/27/17 at 15:30 Morphine Sulfate 2 mg 2 mg Q2H PRN IV PAIN LEVEL 7-10 Last administered on 02/04 08:05; Admin Dose 2 MG; Start 01/28/17 at 14:00 Ondansetron HCl/ Dextrose (Zofran Inj/D5W) 54 ml @ 108 mls/hr Q6H PRN IV NAUSEA AND/OR VOMITING; Start 01/31/17 at 12:00 Hydromorphone HCl (Dilaudid) 1 mg Q2H PRN IV PAIN LEVEL 6-10 Last administered on 02/02/17 21:43; Admin Dose 1 MG; Start 02/02/17 at 11:30 Diphenhydramine HCl 25 mg 25 mg Q6H PRN IV ITCHING Last administered on 23:55; Admin Dose 25 MG; Start 02/02/17 at 11:30 Sodium Chloride 1,000 ml @ 10 mls/hr Q24H IV Last administered on 02/03/17 18:16; Admin Dose 10 MLS/HR; Start 02/02/17 at 17:31 Epinephrine 4 mg/ Dextrose 250 ml @ 3.75 mls/hr PROTOCOL IV ; Start 02/02/17 at 18:00 Vasopressin 60 unit/Dextrose 60 ml @ 0 mls/hr Q12H IV ; Start 02/02/17 at 18:30 Potassium Cl/ Dextrose/Lact Ringer's 1,000 ml @ 150 mls/hr Q6H40M IV Last administered on 02/04/17 06:22; Admin Dose 150 MLS/HR; Start 02/02/17 at 19:30 Norepinephrine 32 mg/Dextrose 250 ml @ 0.46 mls/hr TITRATE IV ; Start at 18:30 Phenylephrine HCl 160 mg/Dextrose 500 ml @ 18.75 mls/ hr TITRATE IV Last administered on 02/04/17 06:21; Admin Dose 18.75 MLS/HR; Start 02/02/17 at 18: 30 Propofol 100 ml @ 1.986 mls/ hr Q12H IV Last administered on 02/03/17 20:38 ; Admin Dose 7.944 MLS/HR; Start 02/03/17 at 09:00 Midazolam HCl (Versed) 50 ml @ 1 mls/hr TITRATE IV Last administered on 09:11; Admin Dose 4 MLS/HR; Start 02/04/17 at 00:30 Acetaminophen 650 mg 650 mg Q4H PRN GTB PAIN AND OR ELEVATED TEMP Last administered on 02/04/17 08:51; Admin Dose 650 MG; Start 02/04/17 at 08:30 Fentanyl (Sublimaze) 100 ml @ 2.5 mls/hr TITRATE IV ; Start 02/04/17 at 10:30; Status RAMIREZ ANDERSON MD Feb 04, 2017 10:43
--- NOTE | 2017-02-04 10:48 | CONS ---
Date/Time of Note Date/Time of Note DATE: 02/04/17 TIME: 10:44 Assessment/Plan Assessment/Plan Additional Assessment/Plan Ventilator setting; AC of 16, tidal volume 400, PEEP of 5, 30% FiO2. Patient currently on phenylephrine drip at 280 mics per minute. Versed 4 mg/h. Assessment and recommendations; 1. Patient admitted with abdominal pain with the recently diagnosed ovarian tumor status post laparotomy with discovery of likely stage IV ovarian cancer with peritoneal metastases. Status post splenectomy as well as total abdominal hysterectomy with oophorectomy. 2. Persistent hypotension, requiring high-dose Levophed. Possibly underlying inflammatory response syndrome from extensive malignancy. 3. Persistent leukocytosis. Continue current supportive care. Add cefepime and vancomycin. Stop sedation to assess mental status. Once the patient is off sedation she will be evaluated for possible weaning from ventilator. 35 minutes of critical care time was spent evaluating the patient. Consultation Date/Type/Reason Admit Date/Time Jan 22, 2017 at 14:12 Initial Consult Date 02/03/17 Type of Consultation: Pulmonary/critical care Referring Provider: KENTRELL MACIAS 24 HR Interval Summary Free Text/Dictation Patient's condition remains critical. Still requiring full invasive mechanical ventilation as well as phenylephrine drip at fairly high dose for persistent hypotension. General exam; middle-aged woman, orally intubated, sedated, currently in no distress. Exam/Review of Systems Vital Signs Vitals Vital Signs Date Time Temp Pulse Resp B/P Pulse Ox O2 Delivery O2 Flow Rate FiO2 02/04/17 09:15 148 32 98 30 02/04/17 06:30 108/72 Mechanical Ventilator 02/04/17 04:00 100.1 Intake and Output 02/03/17 02/03/17 02/04/17 15:00 23:00 07:00 Intake Total 1715.032 ml 1803.432 ml 1517.34 ml Output Total 565 ml 960 ml 755 ml Balance 1150.032 ml 843.432 ml 762.34 ml Exam HEENT exam; supple neck, no JVD. No lymphadenopathy. Midline trachea. No thyromegaly. Orally intubated. Patient has fair dentition. Chest exam; diminished but clear breath sounds. S1-S2 audible, no murmurs. Regular rhythm. Tachycardic. Abdomen exam; soft, midline dressing in place. Drains are in place. Bowel sounds are very sluggish to absent. Extremity exam; no peripheral edema. INFORMATICA MDM ARCHITECT exam; patient is sedated. Results Result Diagram: 02/04/17 0500 02/04/17 0500 Results 24 hrs Laboratory Tests Test 02/03/17 21:36 02/04/17 00:21 02/04/17 05:00 Hemoglobin 11.0 L 10.1 L Hematocrit 32.7 L 30.3 L Blood Gas Specimen Source Blood arterial Arterial Blood Date Drawn 02/04/2017 12:40:55 AM Arterial Blood pH (Temp corrected) 7.394 Arterial Blood pCO2 (Temp correct) 34.4 L Arterial Blood pO2 (Temp corrected) 106.4 H Arterial Blood HCO3 20.5 L Arterial Blood Base Excess -3.6 L Arterial Blood Oxygen Saturation 97.4 Bi Test ACCEPTAB Arterial Blood Gas Puncture Site Right Radial Arterial Blood Carboxyhemoglobin 0.3 Arterial Blood Methemoglobin 0.5 Blood Gas A-a O2 Differential 67.1 H Oxyhemoglobin Percent 96.6 Total Hemoglobin 12.3 Blood Gas Temperature 37.0 Blood Gas Respiration Rate 16.0 Blood Gas Actual Respiration Rate 26 Blood Gas Modality VENT - AC FiO2 30.0 Blood Gas Tidal Volume 400.0 Blood Gas Mean Airway Pressure 4.9 Blood Gas Low PEEP Setting 5.0 Blood Gas Inspiratory Pressure 17.0 Blood Gas Notified Whom BL Blood Gas Notified Time 02/04/2017 12:52:20 AM White Blood Count 32.5 H Red Blood Count 3.53 #L Mean Corpuscular Volume 85.8 Mean Corpuscular Hemoglobin 28.6 L Mean Corpuscular Hemoglobin Concent 33.3 Red Cell Distribution Width 18.4 H Platelet Count 226 Mean Platelet Volume 11.6 H Neutrophils % Lymphocytes % Monocytes % Eosinophils % Basophils % Nucleated Red Blood Cells % 0.2 H Neutrophils # Lymphocytes # Monocytes # Eosinophils # Basophils # Nucleated Red Blood Cells # Sodium Level 143 Potassium Level 5.1 Chloride Level 112 H Carbon Dioxide Level 25 Anion Gap 11 Blood Urea Nitrogen 16 Creatinine 0.82 Glucose Level 160 Calcium Level 7.7 L Medications Medications Current Medications Ondansetron HCl (Zofran Tab) 4 mg Q6H PRN PO NAUSEA AND/OR VOMITING; Start at 16:00 Acetaminophen (Tylenol Tab) 650 mg Q6H PRN PO PAIN LEVEL 1-3 OR FEVER Last administered on 01/28/17 06:20; Admin Dose 650 MG; Start 01/22/17 at 16:00 Docusate Sodium (Colace) 100 mg Q12H PRN PO CONSTIPATION; Start 01/22/17 at 16 :00 Magnesium Hydroxide (Milk Of Mag) 30 ml DAILY PRN PO CONSTIPATION Last administered on 01/31/17 07:38; Admin Dose 30 ML; Start 01/22/17 at 16:00 Bisacodyl (Dulcolax) 5 mg DAILY PRN PO CONSTIPATION Last administered on 05:07; Admin Dose 5 MG; Start 01/22/17 at 16:00 Polyethylene Glycol (Miralax) 17 gm DAILY PO Last administered on 02/01/17 08 :37; Admin Dose 17 GM; Start 01/26/17 at 15:30 Docusate Sodium (Colace) 100 mg BID PO Last administered on 02/03/17 20:38; Admin Dose 100 MG; Start 01/26/17 at 15:30 Sodium Biphosphate/ Sodium Phosphate (Fleet Enema) 133 ml DAILY PRN [place] CONSTIPATION Last administered on 01/27/17 06:17; Admin Dose 133 ML; Start at 20:30 Tolterodine Tartrate (Detrol La) 4 mg DAILY PO Last administered on 02/01/17 08:37; Admin Dose 4 MG; Start 01/27/17 at 15:30 Morphine Sulfate 2 mg 2 mg Q2H PRN IV PAIN LEVEL 7-10 Last administered on 02/04 08:05; Admin Dose 2 MG; Start 01/28/17 at 14:00 Ondansetron HCl/ Dextrose (Zofran Inj/D5W) 54 ml @ 108 mls/hr Q6H PRN IV NAUSEA AND/OR VOMITING; Start 01/31/17 at 12:00 Hydromorphone HCl (Dilaudid) 1 mg Q2H PRN IV PAIN LEVEL 6-10 Last administered on 02/02/17 21:43; Admin Dose 1 MG; Start 02/02/17 at 11:30 Diphenhydramine HCl 25 mg 25 mg Q6H PRN IV ITCHING Last administered on 23:55; Admin Dose 25 MG; Start 02/02/17 at 11:30 Sodium Chloride 1,000 ml @ 10 mls/hr Q24H IV Last administered on 02/03/17 18:16; Admin Dose 10 MLS/HR; Start 02/02/17 at 17:31 Epinephrine 4 mg/ Dextrose 250 ml @ 3.75 mls/hr PROTOCOL IV ; Start 02/02/17 at 18:00 Vasopressin 60 unit/Dextrose 60 ml @ 0 mls/hr Q12H IV ; Start 02/02/17 at 18:30 Potassium Cl/ Dextrose/Lact Ringer's 1,000 ml @ 150 mls/hr Q6H40M IV Last administered on 02/04/17 06:22; Admin Dose 150 MLS/HR; Start 02/02/17 at 19:30 Norepinephrine 32 mg/Dextrose 250 ml @ 0.46 mls/hr TITRATE IV ; Start at 18:30 Phenylephrine HCl 160 mg/Dextrose 500 ml @ 18.75 mls/ hr TITRATE IV Last administered on 02/04/17 06:21; Admin Dose 18.75 MLS/HR; Start 02/02/17 at 18: 30 Propofol 100 ml @ 1.986 mls/ hr Q12H IV Last administered on 02/03/17 20:38 ; Admin Dose 7.944 MLS/HR; Start 02/03/17 at 09:00 Midazolam HCl (Versed) 50 ml @ 1 mls/hr TITRATE IV Last administered on 09:11; Admin Dose 4 MLS/HR; Start 02/04/17 at 00:30 Acetaminophen 650 mg 650 mg Q4H PRN GTB PAIN AND OR ELEVATED TEMP Last administered on 02/04/17 08:51; Admin Dose 650 MG; Start 02/04/17 at 08:30 Fentanyl (Sublimaze) 100 ml @ 2.5 mls/hr TITRATE IV ; Start 02/04/17 at 10:30; Status DARREL GARCIA Feb 04, 2017 10:48
[2017-02-04] MEDS: FENTAnyl (DRIP) 1000 mcg/100mL 100 ML IV SCH ×2 (10:54→20:26)
[2017-02-04] MEDS ORDERED: VANCOMYCIN IV PER PHARMACY XX SCH (11:00)
--- NOTE | 2017-02-04 11:26 | RADRPT ---
PROCEDURE: XR Chest. CLINICAL INDICATION: Fever and dyspnea TECHNIQUE: AP Portable chest. COMPARISON: Chest x-ray dated 02/03/2017 FINDINGS: An endotracheal tube is 3.6 cm above the christophe. An enteric tube is noted in the stomach. A right ce ntral venous catheter is present tip in the superior vena cava. The osseous structures are normal. L ow lung volumes are present with bilateral interstitial crowding or edema. Retrocardiac atelectasis or consolidation is present. Mild blunting of the left costophrenic angle is noted compatible to sma ll left pleural effusion. No pneumothorax is present. IMPRESSION: 1. Tubes and lines as indicated above without pneumothorax. 2. Low lung volumes with bilateral interstitial crowding or edema. 3. Retrocardiac atelectasis or consolidation and small left pleural effusion. RPTAT: HDC .Pat Ortiz MD, Date Time Electronically viewed and signed by .Pat Ortiz MD, on 02/04/2017 11:25 .C/
[2017-02-04] MEDS: CEFEPIME 1GM/50 ML (PMX) 50 ML IVPB SCH ×2 (11:45→20:17)
[2017-02-04] MEDS ORDERED: VANCOMYCIN 1.5 GM in SOD CHLORIDE 0.9% 250 ML IVPB SCH (12:00)
--- NOTE | 2017-02-04 12:36 | CONS ---
Date/Time of Note Date/Time of Note DATE: 02/04/17 TIME: 12:31 Assessment/Plan Assessment/Plan Chief Complaint/Hosp Course Stage IIIc - IV ovarian cancer Problems: Consultation Date/Type/Reason Admit Date/Time Jan 22, 2017 at 14:12 Initial Consult Date 02/03/17 Type of Consultation: Health And Wellness Manager Onc Reason for Consultation Follow-up postop Referring Provider: RAUL EUCEDA MD 24 HR Interval Summary Free Text/Dictation Minimally responsive Resp- more clear CVS- remains tachycardia but NSR Abd- wound clean Ext- NT minimal edema Detailed Summary Additional Comments A/P- Note that given her splenectomy, elevated WBC postop is common. However the extent of necrotic tissue in pelvis is also a risk. Continue current rx with broad spectrum coverage. Exam/Review of Systems Vital Signs Vitals Vital Signs Date Time Temp Pulse Resp B/P Pulse Ox O2 Delivery O2 Flow Rate FiO2 02/04/17 12:15 143 22 113/78 95 Mechanical Ventilator 02/04/17 11:33 30 02/04/17 11:00 100.0 Intake and Output 02/03/17 02/03/17 02/04/17 15:00 23:00 07:00 Intake Total 1715.032 ml 1803.432 ml 1733.84 ml Output Total 565 ml 960 ml 755 ml Balance 1150.032 ml 843.432 ml 978.84 ml Results Result Diagram: 02/04/17 0500 02/04/17 0500 Results 24 hrs Laboratory Tests Test 02/03/17 21:36 02/04/17 00:21 02/04/17 05:00 Hemoglobin 11.0 L 10.1 L Hematocrit 32.7 L 30.3 L Blood Gas Specimen Source Blood arterial Arterial Blood Date Drawn 02/04/2017 12:40:55 AM Arterial Blood pH (Temp corrected) 7.394 Arterial Blood pCO2 (Temp correct) 34.4 L Arterial Blood pO2 (Temp corrected) 106.4 H Arterial Blood HCO3 20.5 L Arterial Blood Base Excess -3.6 L Arterial Blood Oxygen Saturation 97.4 Bi Test ACCEPTAB Arterial Blood Gas Puncture Site Right Radial Arterial Blood Carboxyhemoglobin 0.3 Arterial Blood Methemoglobin 0.5 Blood Gas A-a O2 Differential 67.1 H Oxyhemoglobin Percent 96.6 Total Hemoglobin 12.3 Blood Gas Temperature 37.0 Blood Gas Respiration Rate 16.0 Blood Gas Actual Respiration Rate 26 Blood Gas Modality VENT - AC FiO2 30.0 Blood Gas Tidal Volume 400.0 Blood Gas Mean Airway Pressure 4.9 Blood Gas Low PEEP Setting 5.0 Blood Gas Inspiratory Pressure 17.0 Blood Gas Notified Whom BL Blood Gas Notified Time 02/04/2017 12:52:20 AM White Blood Count 32.5 H Red Blood Count 3.53 #L Mean Corpuscular Volume 85.8 Mean Corpuscular Hemoglobin 28.6 L Mean Corpuscular Hemoglobin Concent 33.3 Red Cell Distribution Width 18.4 H Platelet Count 226 Mean Platelet Volume 11.6 H Neutrophils % Lymphocytes % Monocytes % Eosinophils % Basophils % Nucleated Red Blood Cells % 0.2 H Neutrophils # Lymphocytes # Monocytes # Eosinophils # Basophils # Nucleated Red Blood Cells # Sodium Level 143 Potassium Level 5.1 Chloride Level 112 H Carbon Dioxide Level 25 Anion Gap 11 Blood Urea Nitrogen 16 Creatinine 0.82 Glucose Level 160 Calcium Level 7.7 L Medications Medications Current Medications Ondansetron HCl (Zofran Tab) 4 mg Q6H PRN PO NAUSEA AND/OR VOMITING; Start at 16:00 Acetaminophen (Tylenol Tab) 650 mg Q6H PRN PO PAIN LEVEL 1-3 OR FEVER Last administered on 01/28/17 06:20; Admin Dose 650 MG; Start 01/22/17 at 16:00 Docusate Sodium (Colace) 100 mg Q12H PRN PO CONSTIPATION; Start 01/22/17 at 16 :00 Magnesium Hydroxide (Milk Of Mag) 30 ml DAILY PRN PO CONSTIPATION Last administered on 01/31/17 07:38; Admin Dose 30 ML; Start 01/22/17 at 16:00 Bisacodyl (Dulcolax) 5 mg DAILY PRN PO CONSTIPATION Last administered on 05:07; Admin Dose 5 MG; Start 01/22/17 at 16:00 Polyethylene Glycol (Miralax) 17 gm DAILY PO Last administered on 02/01/17 08 :37; Admin Dose 17 GM; Start 01/26/17 at 15:30 Docusate Sodium (Colace) 100 mg BID PO Last administered on 02/03/17 20:38; Admin Dose 100 MG; Start 01/26/17 at 15:30 Sodium Biphosphate/ Sodium Phosphate (Fleet Enema) 133 ml DAILY PRN [place] CONSTIPATION Last administered on 01/27/17 06:17; Admin Dose 133 ML; Start at 20:30 Tolterodine Tartrate (Detrol La) 4 mg DAILY PO Last administered on 02/01/17 08:37; Admin Dose 4 MG; Start 01/27/17 at 15:30 Morphine Sulfate 2 mg 2 mg Q2H PRN IV PAIN LEVEL 7-10 Last administered on 02/04 08:05; Admin Dose 2 MG; Start 01/28/17 at 14:00 Ondansetron HCl/ Dextrose (Zofran Inj/D5W) 54 ml @ 108 mls/hr Q6H PRN IV NAUSEA AND/OR VOMITING; Start 01/31/17 at 12:00 Hydromorphone HCl (Dilaudid) 1 mg Q2H PRN IV PAIN LEVEL 6-10 Last administered on 02/02/17 21:43; Admin Dose 1 MG; Start 02/02/17 at 11:30 Diphenhydramine HCl 25 mg 25 mg Q6H PRN IV ITCHING Last administered on 23:55; Admin Dose 25 MG; Start 02/02/17 at 11:30 Sodium Chloride 1,000 ml @ 10 mls/hr Q24H IV Last administered on 02/03/17 18:16; Admin Dose 10 MLS/HR; Start 02/02/17 at 17:31 Epinephrine 4 mg/ Dextrose 250 ml @ 3.75 mls/hr PROTOCOL IV ; Start 02/02/17 at 18:00 Vasopressin 60 unit/Dextrose 60 ml @ 0 mls/hr Q12H IV ; Start 02/02/17 at 18:30 Potassium Cl/ Dextrose/Lact Ringer's 1,000 ml @ 150 mls/hr Q6H40M IV Last administered on 02/04/17 06:22; Admin Dose 150 MLS/HR; Start 02/02/17 at 19:30 Norepinephrine 32 mg/Dextrose 250 ml @ 0.46 mls/hr TITRATE IV ; Start at 18:30 Phenylephrine HCl 160 mg/Dextrose 500 ml @ 18.75 mls/ hr TITRATE IV Last administered on 02/04/17 06:21; Admin Dose 18.75 MLS/HR; Start 02/02/17 at 18: 30 Propofol 100 ml @ 1.986 mls/ hr Q12H IV Last administered on 02/03/17 20:38 ; Admin Dose 7.944 MLS/HR; Start 02/03/17 at 09:00 Midazolam HCl (Versed) 50 ml @ 1 mls/hr TITRATE IV Last administered on 12:17; Admin Dose 4 MLS/HR; Start 02/04/17 at 00:30 Acetaminophen 650 mg 650 mg Q4H PRN GTB PAIN AND OR ELEVATED TEMP Last administered on 02/04/17 08:51; Admin Dose 650 MG; Start 02/04/17 at 08:30 Fentanyl 100 ml @ 2.5 mls/hr TITRATE IV Last administered on 02/04/17 10:54; Admin Dose 2.5 MLS/HR; Start 02/04/17 at 10:30 Cefepime HCl 50 ml @ 100 mls/hr Q12 IVPB Last administered on 02/04/17 11:45 ; Admin Dose 100 MLS/HR; Start 02/04/17 at 11:00 Vancomycin HCl 1.5 gm/Sodium Chloride 250 ml @ 83.333 mls/ hr ONCE IVPB Last administered on 02/04/17 12:02; Admin Dose 83.333 MLS/HR; Start 02/04/17 at 12: 00; Stop 02/04/17 at 14:59 Vancomycin HCl/ Dextrose/Water (Vancocin/D5W) 150 ml @ 75 mls/hr Q12H IVPB ; Start 02/05/17 at 00:00 RAUL EUCEDA MD Feb 04, 2017 12:36
--- NOTE | 2017-02-04 13:42 | PN ---
Date/Time of Note Date/Time of Note DATE: 02/04/17 TIME: 13:41 Assessment/Plan VTE Prophylaxis VTE Prophylaxis Intervention: SCD's Lines/Catheters IV [facility] Central Line Central line still needed: Yes Urinary Cath still in place: Yes Reason Cath still needed: urinary retention Assessment/Plan Assessment/Plan 56 yo F with known stage 4 ovarian Ca here admitted for abd pain from malignant ascites sp para 10.19. hospitalization also notable for hydro AUR from her ascites, sp ureteral stenting also sp cytoreduction 10.30. PLAN wean pressors as tolerated extubation as per pulm onc also on consult though patient already has an outpatient oncologist. empiric abx started this AM for fever, blood/urine cultures in process, CXR without focal consolidation AUR: cont sen. critical care time: 30 minutes Exam/Review of Systems Vital Signs Vitals Vital Signs Date Time Temp Pulse Resp B/P Pulse Ox O2 Delivery O2 Flow Rate FiO2 02/04/17 13:09 142 22 96 30 02/04/17 12:15 113/78 Mechanical Ventilator 02/04/17 11:00 100.0 Intake and Output 02/03/17 02/03/17 02/04/17 15:00 23:00 07:00 Intake Total 1715.032 ml 1803.432 ml 1733.84 ml Output Total 565 ml 960 ml 755 ml Balance 1150.032 ml 843.432 ml 978.84 ml Results Result Diagram: 02/04/17 0500 02/04/17 0500 Results 24 hrs Laboratory Tests Test 02/03/17 21:36 02/04/17 00:21 02/04/17 05:00 Hemoglobin 11.0 L 10.1 L Hematocrit 32.7 L 30.3 L Blood Gas Specimen Source Blood arterial Arterial Blood Date Drawn 02/04/2017 12:40:55 AM Arterial Blood pH (Temp corrected) 7.394 Arterial Blood pCO2 (Temp correct) 34.4 L Arterial Blood pO2 (Temp corrected) 106.4 H Arterial Blood HCO3 20.5 L Arterial Blood Base Excess -3.6 L Arterial Blood Oxygen Saturation 97.4 Bi Test ACCEPTAB Arterial Blood Gas Puncture Site Right Radial Arterial Blood Carboxyhemoglobin 0.3 Arterial Blood Methemoglobin 0.5 Blood Gas A-a O2 Differential 67.1 H Oxyhemoglobin Percent 96.6 Total Hemoglobin 12.3 Blood Gas Temperature 37.0 Blood Gas Respiration Rate 16.0 Blood Gas Actual Respiration Rate 26 Blood Gas Modality VENT - AC FiO2 30.0 Blood Gas Tidal Volume 400.0 Blood Gas Mean Airway Pressure 4.9 Blood Gas Low PEEP Setting 5.0 Blood Gas Inspiratory Pressure 17.0 Blood Gas Notified Whom BL Blood Gas Notified Time 02/04/2017 12:52:20 AM White Blood Count 32.5 H Red Blood Count 3.53 #L Mean Corpuscular Volume 85.8 Mean Corpuscular Hemoglobin 28.6 L Mean Corpuscular Hemoglobin Concent 33.3 Red Cell Distribution Width 18.4 H Platelet Count 226 Mean Platelet Volume 11.6 H Neutrophils % Lymphocytes % Monocytes % Eosinophils % Basophils % Nucleated Red Blood Cells % 0.2 H Neutrophils # Lymphocytes # Monocytes # Eosinophils # Basophils # Nucleated Red Blood Cells # Sodium Level 143 Potassium Level 5.1 Chloride Level 112 H Carbon Dioxide Level 25 Anion Gap 11 Blood Urea Nitrogen 16 Creatinine 0.82 Glucose Level 160 Calcium Level 7.7 L Medications Medications Current Medications Ondansetron HCl (Zofran Tab) 4 mg Q6H PRN PO NAUSEA AND/OR VOMITING; Start at 16:00 Acetaminophen (Tylenol Tab) 650 mg Q6H PRN PO PAIN LEVEL 1-3 OR FEVER Last administered on 01/28/17 06:20; Admin Dose 650 MG; Start 01/22/17 at 16:00 Docusate Sodium (Colace) 100 mg Q12H PRN PO CONSTIPATION; Start 01/22/17 at 16 :00 Magnesium Hydroxide (Milk Of Mag) 30 ml DAILY PRN PO CONSTIPATION Last administered on 01/31/17 07:38; Admin Dose 30 ML; Start 01/22/17 at 16:00 Bisacodyl (Dulcolax) 5 mg DAILY PRN PO CONSTIPATION Last administered on 05:07; Admin Dose 5 MG; Start 01/22/17 at 16:00 Polyethylene Glycol (Miralax) 17 gm DAILY PO Last administered on 02/01/17 08 :37; Admin Dose 17 GM; Start 01/26/17 at 15:30 Docusate Sodium (Colace) 100 mg BID PO Last administered on 02/03/17 20:38; Admin Dose 100 MG; Start 01/26/17 at 15:30 Sodium Biphosphate/ Sodium Phosphate (Fleet Enema) 133 ml DAILY PRN [place] CONSTIPATION Last administered on 01/27/17 06:17; Admin Dose 133 ML; Start at 20:30 Tolterodine Tartrate (Detrol La) 4 mg DAILY PO Last administered on 02/01/17 08:37; Admin Dose 4 MG; Start 01/27/17 at 15:30 Morphine Sulfate 2 mg 2 mg Q2H PRN IV PAIN LEVEL 7-10 Last administered on 02/04 08:05; Admin Dose 2 MG; Start 01/28/17 at 14:00 Ondansetron HCl/ Dextrose (Zofran Inj/D5W) 54 ml @ 108 mls/hr Q6H PRN IV NAUSEA AND/OR VOMITING; Start 01/31/17 at 12:00 Hydromorphone HCl (Dilaudid) 1 mg Q2H PRN IV PAIN LEVEL 6-10 Last administered on 02/02/17 21:43; Admin Dose 1 MG; Start 02/02/17 at 11:30 Diphenhydramine HCl 25 mg 25 mg Q6H PRN IV ITCHING Last administered on 23:55; Admin Dose 25 MG; Start 02/02/17 at 11:30 Sodium Chloride 1,000 ml @ 10 mls/hr Q24H IV Last administered on 02/03/17 18:16; Admin Dose 10 MLS/HR; Start 02/02/17 at 17:31 Epinephrine 4 mg/ Dextrose 250 ml @ 3.75 mls/hr PROTOCOL IV ; Start 02/02/17 at 18:00 Vasopressin 60 unit/Dextrose 60 ml @ 0 mls/hr Q12H IV ; Start 02/02/17 at 18:30 Potassium Cl/ Dextrose/Lact Ringer's 1,000 ml @ 150 mls/hr Q6H40M IV Last administered on 02/04/17 13:20; Admin Dose 150 MLS/HR; Start 02/02/17 at 19:30 Norepinephrine 32 mg/Dextrose 250 ml @ 0.46 mls/hr TITRATE IV ; Start at 18:30 Phenylephrine HCl 160 mg/Dextrose 500 ml @ 18.75 mls/ hr TITRATE IV Last administered on 02/04/17 06:21; Admin Dose 18.75 MLS/HR; Start 02/02/17 at 18: 30 Propofol 100 ml @ 1.986 mls/ hr Q12H IV Last administered on 02/03/17 20:38 ; Admin Dose 7.944 MLS/HR; Start 02/03/17 at 09:00 Midazolam HCl (Versed) 50 ml @ 1 mls/hr TITRATE IV Last administered on 12:17; Admin Dose 4 MLS/HR; Start 02/04/17 at 00:30 Acetaminophen 650 mg 650 mg Q4H PRN GTB PAIN AND OR ELEVATED TEMP Last administered on 02/04/17 08:51; Admin Dose 650 MG; Start 02/04/17 at 08:30 Fentanyl 100 ml @ 2.5 mls/hr TITRATE IV Last administered on 02/04/17 10:54; Admin Dose 2.5 MLS/HR; Start 02/04/17 at 10:30 Cefepime HCl 50 ml @ 100 mls/hr Q12 IVPB Last administered on 02/04/17 11:45 ; Admin Dose 100 MLS/HR; Start 02/04/17 at 11:00 Vancomycin HCl 1.5 gm/Sodium Chloride 250 ml @ 83.333 mls/ hr ONCE IVPB Last administered on 02/04/17 12:02; Admin Dose 83.333 MLS/HR; Start 02/04/17 at 12: 00; Stop 02/04/17 at 14:59 Vancomycin HCl/ Dextrose/Water (Vancocin/D5W) 150 ml @ 75 mls/hr Q12H IVPB ; Start 02/05/17 at 00:00 DAYANARA BROWN MD Feb 04, 2017 13:42
--- NOTE | 2017-02-04 14:18 | CONS ---
DATE OF ADMISSION: 01/22/2017 DATE OF CONSULTATION: 02/04/2017 TYPE OF CONSULTATION: Infectious Disease. REASON FOR CONSULTATION: Antibiotic management. HISTORY OF PRESENT ILLNESS: Ania Mai is a 56-year-old female with stage IV ovarian carcinoma wi th omental metastasis. She presents with abdominal pain and is being seen now for antibiotic manage ment. She was diagnosed with ovarian CA a few months ago. Her oncologist, , is in [place] . She has ascites since her diagnosis. The abdominal pain became so great that she came to the [facility] room. In the ER, her white count was 11.5, hemoglobin and hematocrit 10.3 and 34.2, platelet count 509,000. BUN and creatinine 18/0.73. HOSPITAL COURSE: Initial plan was for paracentesis with cytology and pain control. She has SIRS wi th an elevated white count on admission, tachycardic. She was seen by Dr. Fitch who did a cystosc opy, bilateral retrograde pyelograms and insertion of bilateral JJ stents, 7-Macanese x 28 cm long on the right, 7-Macanese x 26 cm long on the left for bilateral hydronephrosis. She was seen by Dr. Bryanna Billingsley for advanced ovarian carcinoma with malignant ascites and peritoneal carcinomatosis. She has a large conglomerate pelvic mass, inseparable from the uterus, sigmoid colon and rectum, contai ns clumps of calcification suspicious for calcified fibroids in containing cystic areas. A CT scan of the chest shows small left pleural effusion. She was seen by Dr. Ramirez in surgical consultation, on the , she had surgery. She had ureter al dissection, omentectomy with splenectomy, diaphragm stripping on the right and cytoreduction. Sh e was seen again by Dr. Billingsley, bloody discharge from the [facility] has been improving, and by Dr. Jayme dennis. She has a central line urinary catheter, stage IIIC to IV ovarian carcinoma. PAST MEDICAL HISTORY: Operations as outlined. FAMILY HISTORY: Noncontributory. SOCIAL HISTORY: She does not smoke, drink or abuse drugs. ALLERGIES: NONE TO PENICILLIN, SULFA OR FOODS. MEDICATIONS: Per chart. REVIEW OF SYSTEMS: As per HPI. PHYSICAL EXAMINATION: GENERAL: The patient is chronically ill critical female. She now requires invasive mechanical vent ilation as well as Phenylephrine drip at high dose for persistent hypotension. She is intubated and sedated. SKIN: Without generalized rash. HEENT: Within normal limits. NECK: Supple. LYMPH NODES: None palpable. She has an ET tube in place. She has a central line. CHEST: Decreased breath sounds at the bases. HEART: Without murmur or gallop. ABDOMEN: Soft and nontender. Drains are in place. Bowel sounds are sluggish. EXTREMITIES: No cyanosis, clubbing, or edema. RECTAL AND GENITAL: Deferred. NEUROLOGIC EVALUATION: The patient is sedated. She is currently on vancomycin and cefepime. LABORATORY DATA: Her white count today is 32.5, hemoglobin and hematocrit 10.1 and 30.3, platelet c ount 226,000, BUN and creatinine 16/0.82. I will continue her on this current regimen. MICROBIOLOGY: Her urine grew out alpha hemolytic strep from the , but otherwise, her cultures s o far are negative. Her chest x-ray shows endotracheal tube, an NG tube, a right central catheter, retrocardiac atelectasis with consolidation, mild blunting of left costophrenic angle. We will cont inue her on current therapy and follow along in her course. Dictated By: DEONDRE JAMISON MD, JD/SEBASTIAN Conf#: [id number] DID#: [id number]
[2017-02-04] MEDS: SOD CHLORIDE 0.9% 1,000 ML IV SCH (17:31)
[2017-02-04 19:39] LABS: AADO2 Arterial 70.7 mmHg (7.0-24.0); Allen Test ACCEPTAB; Arterial Base Excess -2.6 mmol/L (-3.0-3); Arterial COHb 0.3 % (0.0-3.0); Arterial Fraction of Oxyhgb 96.4 % (93.0-99.0); Arterial HCO3 22.1 mmol/L (22.0-26.0); Arterial MetHb 0.5 % (0.0-1.5); Arterial Total Hemglobin 10.4 g/dl (12.0-18.0); MODE VENT - AC
[2017-02-05] VITALS (103 sets, daily range): BP systolic 86–117; BP diastolic 48–74; PULSE 91–131; RESP 13–40
[2017-02-05] MEDS: ACETAMINOPHEN 650MG/20.3ML CUP GTB PRN ×3 (00:51→12:12)
[2017-02-05] MEDS: VANCOMYCIN 750 MG in DEXTROSE 5% 150 ML IVPB SCH ×2 (00:53→12:06)
[2017-02-05] MEDS: D5-LR + KCL 20 MEQ 1,000 ML IV SCH (02:29)
[2017-02-05] MEDS: MIDAZOLAM (DRIP) 50 mg/50 mL 50 ML IV SCH ×2 (02:29→23:10)
[2017-02-05] MEDS: VASOPRESSIN 60 UNIT in DEXTROSE 5% 57 ML IV SCH ×2 (06:30→18:06)
--- NOTE | 2017-02-05 06:50 | RADRPT ---
PROCEDURE: XR Chest. CLINICAL INDICATION: Sepsis TECHNIQUE: AP Portable chest. COMPARISON: CHEST 02/04/2017; CHEST 02/03/2017 FINDINGS: ET tube, NG tube and right IJ central line are unchanged. The cardiomediastinal silhouette is normal. Elevated right hemidiaphragm is again noted. Interval de creased edema. No focal consolidation, pleural effusion or pneumothorax is seen. The osseous struc tures are intact. IMPRESSION: Lines and tubes unchanged. Interval decreased edema Physician Angeline Date Time Electronically viewed and signed by Gianna Salgado Physician on 02/05/2017 06:50 CS/
[2017-02-05 07:36] LABS: ABNORMAL IP MESSAGE 1; BASOPHILS % 0.1 % (0.0-2.0); HEMOGLOBIN 8.3 g/dl (12.0-16.0); LYMPHOCYTES # 0.8 10^3/ul (0.8-2.9); LYMPHOCYTES % 3.5 % (15.0-51.0); MEAN CORPUSCULAR HEMOGLOBIN 28.3 pg (29.0-33.0); MEAN CORPUSCULAR HGB CONC 30.7 g/dl (32.0-37.0); MEAN CORPUSCULAR VOLUME 92.2 fl (82.0-101.0); MEAN PLATELET VOLUME 12.6 fl (7.4-10.4); MONOCYTE # 1.5 10^3/ul (0.3-0.9); MONOCYTES % 6.2 % (0.0-11.0); NEUTROPHIL # 21.1 10^3/ul (1.6-7.5); NEUTROPHILS % 88.7 % (39.0-77.0); NUCLEATED RED BLOOD CELLS% 0.1 /100WBC (0.0-0.0); PLATELET COUNT 198 10^3/UL (140-415); RED BLOOD COUNT 2.93 10^6/ul (4.20-5.40); RED CELL DISTRIBUTION WIDTH 19.5 % (11.5-14.5); WHITE BLOOD COUNT 23.8 10^3/ul (4.8-10.8)
[2017-02-05] MEDS: FENTAnyl (DRIP) 1000 mcg/100mL 100 ML IV SCH ×2 (07:38→18:52)
[2017-02-05 07:40] LABS: POSITIVE DIFF @See below
[2017-02-05 07:43] LABS: CALCIUM 7.6 mg/dl (8.4-10.2); CREATININE 0.76 mg/dl (0.44-1.00); POTASSIUM 5.2 mmol/L (3.5-5.1)
[2017-02-05] MEDS: PROPOFOL 100 ML IV SCH ×2 (08:01→19:40)
[2017-02-05] MEDS: TOLTERODINE (SR) 4 MG CAP PO SCH (09:00)
[2017-02-05] MEDS ORDERED: SOD CHLORIDE 0.9% 1,000 ML IV SCH (10:00)
[2017-02-05] MEDS: POLYETHYLENE GLYCOL 17 GM PACKET PO SCH (10:09)
[2017-02-05] MEDS: DOCUSATE SODIUM 10 MG/ML (10ML CUP) NGT SCH ×2 (10:09→20:12)
[2017-02-05] MEDS: PHENYLephrine 160 MG in DEXTROSE 5% 484 ML IV SCH (10:15)
--- NOTE | 2017-02-05 10:47 | CONS ---
Date/Time of Note Date/Time of Note DATE: 02/05/17 TIME: 10:43 Assessment/Plan Assessment/Plan Additional Assessment/Plan Chest x-ray was reviewed from today which is totally clear. Endotracheal tube is at an adequate level. Patient is currently on fentanyl 100 mics per hour, phenylephrine 140 mics per minute. Versed 5 mg/h. Ventilator setting; AC of 16, tidal volume 400, PEEP of 5, 30% FiO2. Assessment and recommendations; patient with stage IV ovarian cancer with peritoneal fluid positive for malignant cells. Status post abdominal surgery with total abdominal hysterectomy, splenectomy. 2. Postop ileus. Patient having significant drainage from nasogastric tube. 3. Significant leukocytosis with interval improvement. Patient started empirically on antibiotics yesterday. 4. Persistent hypotension. No obvious source of infection, this possibly could be systemic inflammatory response syndrome due to extensive tumor burden. Next Continue current supportive care. Start TPN. Prognosis is very guarded. Consultation Date/Type/Reason Admit Date/Time Jan 22, 2017 at 14:12 Initial Consult Date 02/03/17 Type of Consultation: Pulmonary/critical care Referring Provider: RAUL EUCEDA MD 24 HR Interval Summary Free Text/Dictation Patient's condition remains critical. Still requiring pressor support for hypotension. General exam; middle-aged woman, orally intubated, sedated, currently in no distress. Exam/Review of Systems Vital Signs Vitals Vital Signs Date Time Temp Pulse Resp B/P Pulse Ox O2 Delivery O2 Flow Rate FiO2 02/05/17 09:00 93 20 100 30 02/05/17 08:15 95/60 02/05/17 08:00 98.9 Mechanical Ventilator Intake and Output 02/04/17 02/04/17 02/05/17 15:00 23:00 07:00 Intake Total 1942.979 ml 1720.61 ml 1951.00 ml Output Total 615 ml 530 ml 670 ml Balance 1327.979 ml 1190.61 ml 1281.00 ml Exam H ENT exam; supple neck, no JVD. No lymphadenopathy. Midline trachea. No thyromegaly. Patient has multiple carious teeth. Pupils are small bilaterally. Patient is orally intubated. Chest exam; clear to auscultation. S1-S2 audible, no murmurs. Regular rhythm. Abdomen exam; soft, bowel sounds are absent. Midline dressing in place. Abdominal drains are in place. Extremity exam; no peripheral edema. MOBILITY ENGINEER exam; patient is sedated. Results Result Diagram: 02/05/17 0400 02/05/17 0400 Results 24 hrs Laboratory Tests Test 02/04/17 19:20 02/05/17 04:00 Blood Gas Specimen Source Blood arterial Arterial Blood Date Drawn 02/04/2017 7:30:13 PM Arterial Blood pH (Temp corrected) 7.384 Arterial Blood pCO2 (Temp correct) 37.8 Arterial Blood pO2 (Temp corrected) 98.8 Arterial Blood HCO3 22.1 Arterial Blood Base Excess -2.6 Arterial Blood Oxygen Saturation 97.2 Bi Test ACCEPTAB Arterial Blood Gas Puncture Site Right Brachial Arterial Blood Carboxyhemoglobin 0.3 Arterial Blood Methemoglobin 0.5 Blood Gas A-a O2 Differential 70.7 H Oxyhemoglobin Percent 96.4 Total Hemoglobin 10.4 L Blood Gas Temperature 37.0 Blood Gas Respiration Rate 16.0 Blood Gas Actual Respiration Rate 22 Blood Gas Modality VENT - AC FiO2 30.0 Blood Gas Tidal Volume 400.0 Blood Gas Low PEEP Setting 5.0 Blood Gas Notified Whom MA Blood Gas Notified Time 02/04/2017 7:38:55 PM White Blood Count 23.8 #H Red Blood Count 2.93 L Hemoglobin 8.3 L Hematocrit 27.0 L Mean Corpuscular Volume 92.2 Mean Corpuscular Hemoglobin 28.3 L Mean Corpuscular Hemoglobin Concent 30.7 L Red Cell Distribution Width 19.5 H Platelet Count 198 Mean Platelet Volume 12.6 H Neutrophils % 88.7 H Lymphocytes % 3.5 L Monocytes % 6.2 Eosinophils % 0.0 Basophils % 0.1 Nucleated Red Blood Cells % 0.1 H Neutrophils # 21.1 H Lymphocytes # 0.8 Monocytes # 1.5 H Eosinophils # 0.0 Basophils # 0.0 Nucleated Red Blood Cells # 0.0 Sodium Level 144 Potassium Level 5.2 H Chloride Level 113 H Carbon Dioxide Level 26 Anion Gap 10 Blood Urea Nitrogen 15 Creatinine 0.76 Glucose Level 119 # Calcium Level 7.6 L Medications Medications Current Medications Ondansetron HCl (Zofran Tab) 4 mg Q6H PRN PO NAUSEA AND/OR VOMITING; Start at 16:00 Acetaminophen (Tylenol Tab) 650 mg Q6H PRN PO PAIN LEVEL 1-3 OR FEVER Last administered on 01/28/17 06:20; Admin Dose 650 MG; Start 01/22/17 at 16:00 Docusate Sodium (Colace) 100 mg Q12H PRN PO CONSTIPATION; Start 01/22/17 at 16 :00 Magnesium Hydroxide (Milk Of Mag) 30 ml DAILY PRN PO CONSTIPATION Last administered on 01/31/17 07:38; Admin Dose 30 ML; Start 01/22/17 at 16:00 Bisacodyl (Dulcolax) 5 mg DAILY PRN PO CONSTIPATION Last administered on 05:07; Admin Dose 5 MG; Start 01/22/17 at 16:00 Polyethylene Glycol (Miralax) 17 gm DAILY PO Last administered on 02/05/17 10: 09; Admin Dose 17 GM; Start 01/26/17 at 15:30 Sodium Biphosphate/ Sodium Phosphate (Fleet Enema) 133 ml DAILY PRN [place] CONSTIPATION Last administered on 01/27/17 06:17; Admin Dose 133 ML; Start at 20:30 Tolterodine Tartrate (Detrol La) 4 mg DAILY PO Last administered on 02/01/17 08:37; Admin Dose 4 MG; Start 01/27/17 at 15:30 Morphine Sulfate 2 mg 2 mg Q2H PRN IV PAIN LEVEL 7-10 Last administered on 02/04 08:05; Admin Dose 2 MG; Start 01/28/17 at 14:00 Ondansetron HCl/ Dextrose (Zofran Inj/D5W) 54 ml @ 108 mls/hr Q6H PRN IV NAUSEA AND/OR VOMITING; Start 01/31/17 at 12:00 Hydromorphone HCl (Dilaudid) 1 mg Q2H PRN IV PAIN LEVEL 6-10 Last administered on 02/02/17 21:43; Admin Dose 1 MG; Start 02/02/17 at 11:30 Diphenhydramine HCl 25 mg 25 mg Q6H PRN IV ITCHING Last administered on 23:55; Admin Dose 25 MG; Start 02/02/17 at 11:30 Sodium Chloride 1,000 ml @ 10 mls/hr Q24H IV Last administered on 02/03/17 18:16; Admin Dose 10 MLS/HR; Start 02/02/17 at 17:31 Epinephrine 4 mg/ Dextrose 250 ml @ 3.75 mls/hr PROTOCOL IV ; Start 02/02/17 at 18:00 Vasopressin 60 unit/Dextrose 60 ml @ 0 mls/hr Q12H IV ; Start 02/02/17 at 18:30 Norepinephrine 32 mg/Dextrose 250 ml @ 0.46 mls/hr TITRATE IV ; Start at 18:30 Phenylephrine HCl 160 mg/Dextrose 500 ml @ 18.75 mls/ hr TITRATE IV Last administered on 02/05/17 10:15; Admin Dose 22.5 MLS/HR; Start 02/02/17 at 18: 30 Propofol 100 ml @ 1.986 mls/ hr Q12H IV Last administered on 02/03/17 20:38 ; Admin Dose 7.944 MLS/HR; Start 02/03/17 at 09:00 Midazolam HCl (Versed) 50 ml @ 1 mls/hr TITRATE IV Last administered on 02:29; Admin Dose 2 MLS/HR; Start 02/04/17 at 00:30 Acetaminophen 650 mg 650 mg Q4H PRN GTB PAIN AND OR ELEVATED TEMP Last administered on 02/05/17 05:55; Admin Dose 650 MG; Start 02/04/17 at 08:30 Fentanyl 100 ml @ 2.5 mls/hr TITRATE IV Last administered on 02/05/17 07:38; Admin Dose 10 MLS/HR; Start 02/04/17 at 10:30 Cefepime HCl 50 ml @ 100 mls/hr Q12 IVPB Last administered on 02/04/17 20:17 ; Admin Dose 100 MLS/HR; Start 02/04/17 at 11:00 Vancomycin HCl/ Dextrose/Water (Vancocin/D5W) 150 ml @ 75 mls/hr Q12H IVPB Last administered on 02/05/17 00:53; Admin Dose 75 MLS/HR; Start 02/05/17 at 00 :00 Docusate Sodium (Colace Liquid Cup) 100 mg BID NGT Last administered on 10:09; Admin Dose 100 MG; Start 02/05/17 at 09:00 Miscellaneous Information VANCO TROUGH @ 2,300 ON ... ONCE ONCE XX ; Start at 23:00; Stop 02/05/17 at 23:01 Sodium Chloride (NS) 1,000 ml @ 100 mls/hr Q10H IV Last administered on t 10:14; Admin Dose 100 MLS/HR; Start 02/05/17 at 10:00 DARREL DARBY Feb 05, 2017 10:47
[2017-02-05] MEDS: CEFEPIME 1GM/50 ML (PMX) 50 ML IVPB SCH (10:55)
--- NOTE | 2017-02-05 14:21 | PN ---
Date/Time of Note Date/Time of Note DATE: 02/05/17 TIME: 14:19 Assessment/Plan VTE Prophylaxis VTE Prophylaxis Intervention: SCD's Lines/Catheters IV Catheter Type (from [facility]): Central Line Central line still needed: Yes Urinary Cath still in place: Yes Reason Cath still needed: urinary retention Assessment/Plan Assessment/Plan 56 yo F with known stage 4 ovarian Ca here admitted for abd pain from malignant ascites sp para 10.19. hospitalization also notable for hydro AUR from her ascites, sp ureteral stenting also sp cytoreduction 10.30. PLAN wean pressors as tolerated extubation as per pulm onc also on consult though patient already has an outpatient oncologist. empiric abx started yesterday for fever, blood/urine cultures negative, CXR without focal consolidation likely stop abx once cultures neg x 48 hours AUR: cont sen. critical care time: 30 minutes Subjective 24 Hr Interval Summary Free Text/Dictation Pressor needs declining Exam/Review of Systems Vital Signs Vitals Vital Signs Date Time Temp Pulse Resp B/P Pulse Ox O2 Delivery O2 Flow Rate FiO2 02/05/17 13:45 95 15 97/52 100 02/05/17 13:10 30 02/05/17 13:00 Mechanical Ventilator 02/05/17 12:00 99.6 Intake and Output 02/04/17 02/04/17 02/05/17 15:00 23:00 07:00 Intake Total 1942.979 ml 1720.61 ml 1951.00 ml Output Total 615 ml 530 ml 670 ml Balance 1327.979 ml 1190.61 ml 1281.00 ml Exam intubated and sedated no mrg lungs clear no rashes no edema Results Result Diagram: 02/05/17 0400 02/05/17 0400 Results 24 hrs Laboratory Tests Test 02/04/17 19:20 02/05/17 04:00 Blood Gas Specimen Source Blood arterial Arterial Blood Date Drawn 02/04/2017 7:30:13 PM Arterial Blood pH (Temp corrected) 7.384 Arterial Blood pCO2 (Temp correct) 37.8 Arterial Blood pO2 (Temp corrected) 98.8 Arterial Blood HCO3 22.1 Arterial Blood Base Excess -2.6 Arterial Blood Oxygen Saturation 97.2 Bi Test ACCEPTAB Arterial Blood Gas Puncture Site Right Brachial Arterial Blood Carboxyhemoglobin 0.3 Arterial Blood Methemoglobin 0.5 Blood Gas A-a O2 Differential 70.7 H Oxyhemoglobin Percent 96.4 Total Hemoglobin 10.4 L Blood Gas Temperature 37.0 Blood Gas Respiration Rate 16.0 Blood Gas Actual Respiration Rate 22 Blood Gas Modality VENT - AC FiO2 30.0 Blood Gas Tidal Volume 400.0 Blood Gas Low PEEP Setting 5.0 Blood Gas Notified Whom MA Blood Gas Notified Time 02/04/2017 7:38:55 PM White Blood Count 23.8 #H Red Blood Count 2.93 L Hemoglobin 8.3 L Hematocrit 27.0 L Mean Corpuscular Volume 92.2 Mean Corpuscular Hemoglobin 28.3 L Mean Corpuscular Hemoglobin Concent 30.7 L Red Cell Distribution Width 19.5 H Platelet Count 198 Mean Platelet Volume 12.6 H Neutrophils % 88.7 H Lymphocytes % 3.5 L Monocytes % 6.2 Eosinophils % 0.0 Basophils % 0.1 Nucleated Red Blood Cells % 0.1 H Neutrophils # 21.1 H Lymphocytes # 0.8 Monocytes # 1.5 H Eosinophils # 0.0 Basophils # 0.0 Nucleated Red Blood Cells # 0.0 Sodium Level 144 Potassium Level 5.2 H Chloride Level 113 H Carbon Dioxide Level 26 Anion Gap 10 Blood Urea Nitrogen 15 Creatinine 0.76 Glucose Level 119 # Calcium Level 7.6 L Medications Medications Current Medications Ondansetron HCl (Zofran Tab) 4 mg Q6H PRN PO NAUSEA AND/OR VOMITING; Start at 16:00 Acetaminophen (Tylenol Tab) 650 mg Q6H PRN PO PAIN LEVEL 1-3 OR FEVER Last administered on 01/28/17 06:20; Admin Dose 650 MG; Start 01/22/17 at 16:00 Docusate Sodium (Colace) 100 mg Q12H PRN PO CONSTIPATION; Start 01/22/17 at 16 :00 Magnesium Hydroxide (Milk Of Mag) 30 ml DAILY PRN PO CONSTIPATION Last administered on 01/31/17 07:38; Admin Dose 30 ML; Start 01/22/17 at 16:00 Bisacodyl (Dulcolax) 5 mg DAILY PRN PO CONSTIPATION Last administered on 05:07; Admin Dose 5 MG; Start 01/22/17 at 16:00 Polyethylene Glycol (Miralax) 17 gm DAILY PO Last administered on 02/05/17 10: 09; Admin Dose 17 GM; Start 01/26/17 at 15:30 Sodium Biphosphate/ Sodium Phosphate (Fleet Enema) 133 ml DAILY PRN [place] CONSTIPATION Last administered on 01/27/17 06:17; Admin Dose 133 ML; Start at 20:30 Tolterodine Tartrate (Detrol La) 4 mg DAILY PO Last administered on 02/01/17 08:37; Admin Dose 4 MG; Start 01/27/17 at 15:30 Morphine Sulfate 2 mg 2 mg Q2H PRN IV PAIN LEVEL 7-10 Last administered on 02/04 08:05; Admin Dose 2 MG; Start 01/28/17 at 14:00 Ondansetron HCl/ Dextrose (Zofran Inj/D5W) 54 ml @ 108 mls/hr Q6H PRN IV NAUSEA AND/OR VOMITING; Start 01/31/17 at 12:00 Hydromorphone HCl (Dilaudid) 1 mg Q2H PRN IV PAIN LEVEL 6-10 Last administered on 02/02/17 21:43; Admin Dose 1 MG; Start 02/02/17 at 11:30 Diphenhydramine HCl 25 mg 25 mg Q6H PRN IV ITCHING Last administered on 23:55; Admin Dose 25 MG; Start 02/02/17 at 11:30 Sodium Chloride 1,000 ml @ 10 mls/hr Q24H IV Last administered on 02/03/17 18:16; Admin Dose 10 MLS/HR; Start 02/02/17 at 17:31 Epinephrine 4 mg/ Dextrose 250 ml @ 3.75 mls/hr PROTOCOL IV ; Start 02/02/17 at 18:00 Vasopressin 60 unit/Dextrose 60 ml @ 0 mls/hr Q12H IV ; Start 02/02/17 at 18:30 Norepinephrine 32 mg/Dextrose 250 ml @ 0.46 mls/hr TITRATE IV ; Start at 18:30 Phenylephrine HCl 160 mg/Dextrose 500 ml @ 18.75 mls/ hr TITRATE IV Last administered on 02/05/17 10:15; Admin Dose 22.5 MLS/HR; Start 02/02/17 at 18: 30 Propofol 100 ml @ 1.986 mls/ hr Q12H IV Last administered on 02/03/17 20:38 ; Admin Dose 7.944 MLS/HR; Start 02/03/17 at 09:00 Midazolam HCl (Versed) 50 ml @ 1 mls/hr TITRATE IV Last administered on 02:29; Admin Dose 2 MLS/HR; Start 02/04/17 at 00:30 Acetaminophen 650 mg 650 mg Q4H PRN GTB PAIN AND OR ELEVATED TEMP Last administered on 02/05/17 12:12; Admin Dose 650 MG; Start 02/04/17 at 08:30 Fentanyl 100 ml @ 2.5 mls/hr TITRATE IV Last administered on 02/05/17 07:38; Admin Dose 10 MLS/HR; Start 02/04/17 at 10:30 Vancomycin HCl/ Dextrose/Water (Vancocin/D5W) 150 ml @ 75 mls/hr Q12H IVPB Last administered on 02/05/17 12:06; Admin Dose 75 MLS/HR; Start 02/05/17 at 00 :00 Docusate Sodium (Colace Liquid Cup) 100 mg BID NGT Last administered on 10:09; Admin Dose 100 MG; Start 02/05/17 at 09:00 Miscellaneous Information VANCO TROUGH @ 2,300 ON ... ONCE ONCE XX ; Start at 23:00; Stop 02/05/17 at 23:01 Sodium Chloride 1,000 ml @ 100 mls/hr Q10H IV Last administered on 02/05/17 10:14; Admin Dose 100 MLS/HR; Start 02/05/17 at 10:00 Piperacillin Sod/ Tazobactam Sod (Zosyn 3.375gm/ 50 ml (Pmx)) 50 ml @ 200 mls/ hr Q8 IVPB ; Start 02/05/17 at 14:00 DAYANARA BROWN MD Feb 05, 2017 14:21
--- NOTE | 2017-02-05 14:32 | PN ---
Date/Time of Note Date/Time of Note DATE: 02/05/17 TIME: 14:27 Assessment/Plan VTE Prophylaxis VTE Prophylaxis Intervention: LMWH Lines/Catheters IV Catheter Type (from Nrs): Central Line Central line still needed: Yes Urinary Cath still in place: Yes Reason Cath still needed: other (indicate) Assessment/Plan Chief Complaint/Hosp Course Stage IIIc - IV ovarian cancer Problems: Assessment/Plan A- doing better P - discussed with nurse and advise Justyna Subjective 24 Hr Interval Summary Free Text/Dictation very minimally responsive but more stable Exam/Review of Systems Vital Signs Vitals Vital Signs Date Time Temp Pulse Resp B/P Pulse Ox O2 Delivery O2 Flow Rate FiO2 02/05/17 13:45 95 15 97/52 100 02/05/17 13:10 30 02/05/17 13:00 Mechanical Ventilator 02/05/17 12:00 99.6 Intake and Output 02/04/17 02/04/17 02/05/17 15:00 23:00 07:00 Intake Total 1942.979 ml 1720.61 ml 1951.00 ml Output Total 615 ml 530 ml 670 ml Balance 1327.979 ml 1190.61 ml 1281.00 ml Exam Resp- clear CVS- NSR sl less tachy Abd Soft not very distended, wound clean Ext Nt Results Result Diagram: 02/05/17 0400 02/05/17 0400 Results 24 hrs Laboratory Tests Test 02/04/17 19:20 02/05/17 04:00 Blood Gas Specimen Source Blood arterial Arterial Blood Date Drawn 02/04/2017 7:30:13 PM Arterial Blood pH (Temp corrected) 7.384 Arterial Blood pCO2 (Temp correct) 37.8 Arterial Blood pO2 (Temp corrected) 98.8 Arterial Blood HCO3 22.1 Arterial Blood Base Excess -2.6 Arterial Blood Oxygen Saturation 97.2 Bi Test ACCEPTAB Arterial Blood Gas Puncture Site Right Brachial Arterial Blood Carboxyhemoglobin 0.3 Arterial Blood Methemoglobin 0.5 Blood Gas A-a O2 Differential 70.7 H Oxyhemoglobin Percent 96.4 Total Hemoglobin 10.4 L Blood Gas Temperature 37.0 Blood Gas Respiration Rate 16.0 Blood Gas Actual Respiration Rate 22 Blood Gas Modality VENT - AC FiO2 30.0 Blood Gas Tidal Volume 400.0 Blood Gas Low PEEP Setting 5.0 Blood Gas Notified Whom MA Blood Gas Notified Time 02/04/2017 7:38:55 PM White Blood Count 23.8 #H Red Blood Count 2.93 L Hemoglobin 8.3 L Hematocrit 27.0 L Mean Corpuscular Volume 92.2 Mean Corpuscular Hemoglobin 28.3 L Mean Corpuscular Hemoglobin Concent 30.7 L Red Cell Distribution Width 19.5 H Platelet Count 198 Mean Platelet Volume 12.6 H Neutrophils % 88.7 H Lymphocytes % 3.5 L Monocytes % 6.2 Eosinophils % 0.0 Basophils % 0.1 Nucleated Red Blood Cells % 0.1 H Neutrophils # 21.1 H Lymphocytes # 0.8 Monocytes # 1.5 H Eosinophils # 0.0 Basophils # 0.0 Nucleated Red Blood Cells # 0.0 Sodium Level 144 Potassium Level 5.2 H Chloride Level 113 H Carbon Dioxide Level 26 Anion Gap 10 Blood Urea Nitrogen 15 Creatinine 0.76 Glucose Level 119 # Calcium Level 7.6 L Medications Medications Current Medications Ondansetron HCl (Zofran Tab) 4 mg Q6H PRN PO NAUSEA AND/OR VOMITING; Start at 16:00 Acetaminophen (Tylenol Tab) 650 mg Q6H PRN PO PAIN LEVEL 1-3 OR FEVER Last administered on 01/28/17 06:20; Admin Dose 650 MG; Start 01/22/17 at 16:00 Docusate Sodium (Colace) 100 mg Q12H PRN PO CONSTIPATION; Start 01/22/17 at 16 :00 Magnesium Hydroxide (Milk Of Mag) 30 ml DAILY PRN PO CONSTIPATION Last administered on 01/31/17 07:38; Admin Dose 30 ML; Start 01/22/17 at 16:00 Bisacodyl (Dulcolax) 5 mg DAILY PRN PO CONSTIPATION Last administered on 05:07; Admin Dose 5 MG; Start 01/22/17 at 16:00 Polyethylene Glycol (Miralax) 17 gm DAILY PO Last administered on 02/05/17 10: 09; Admin Dose 17 GM; Start 01/26/17 at 15:30 Sodium Biphosphate/ Sodium Phosphate (Fleet Enema) 133 ml DAILY PRN [place] CONSTIPATION Last administered on 01/27/17 06:17; Admin Dose 133 ML; Start at 20:30 Tolterodine Tartrate (Detrol La) 4 mg DAILY PO Last administered on 02/01/17 08:37; Admin Dose 4 MG; Start 01/27/17 at 15:30 Morphine Sulfate 2 mg 2 mg Q2H PRN IV PAIN LEVEL 7-10 Last administered on 02/04 08:05; Admin Dose 2 MG; Start 01/28/17 at 14:00 Ondansetron HCl/ Dextrose (Zofran Inj/D5W) 54 ml @ 108 mls/hr Q6H PRN IV NAUSEA AND/OR VOMITING; Start 01/31/17 at 12:00 Hydromorphone HCl (Dilaudid) 1 mg Q2H PRN IV PAIN LEVEL 6-10 Last administered on 02/02/17 21:43; Admin Dose 1 MG; Start 02/02/17 at 11:30 Diphenhydramine HCl 25 mg 25 mg Q6H PRN IV ITCHING Last administered on 23:55; Admin Dose 25 MG; Start 02/02/17 at 11:30 Sodium Chloride 1,000 ml @ 10 mls/hr Q24H IV Last administered on 02/03/17 18:16; Admin Dose 10 MLS/HR; Start 02/02/17 at 17:31 Epinephrine 4 mg/ Dextrose 250 ml @ 3.75 mls/hr PROTOCOL IV ; Start 02/02/17 at 18:00 Vasopressin 60 unit/Dextrose 60 ml @ 0 mls/hr Q12H IV ; Start 02/02/17 at 18:30 Norepinephrine 32 mg/Dextrose 250 ml @ 0.46 mls/hr TITRATE IV ; Start at 18:30 Phenylephrine HCl 160 mg/Dextrose 500 ml @ 18.75 mls/ hr TITRATE IV Last administered on 02/05/17 10:15; Admin Dose 22.5 MLS/HR; Start 02/02/17 at 18: 30 Propofol 100 ml @ 1.986 mls/ hr Q12H IV Last administered on 02/03/17 20:38 ; Admin Dose 7.944 MLS/HR; Start 02/03/17 at 09:00 Midazolam HCl (Versed) 50 ml @ 1 mls/hr TITRATE IV Last administered on 02:29; Admin Dose 2 MLS/HR; Start 02/04/17 at 00:30 Acetaminophen 650 mg 650 mg Q4H PRN GTB PAIN AND OR ELEVATED TEMP Last administered on 02/05/17 12:12; Admin Dose 650 MG; Start 02/04/17 at 08:30 Fentanyl 100 ml @ 2.5 mls/hr TITRATE IV Last administered on 02/05/17 07:38; Admin Dose 10 MLS/HR; Start 02/04/17 at 10:30 Vancomycin HCl/ Dextrose/Water (Vancocin/D5W) 150 ml @ 75 mls/hr Q12H IVPB Last administered on 02/05/17 12:06; Admin Dose 75 MLS/HR; Start 02/05/17 at 00 :00 Docusate Sodium (Colace Liquid Cup) 100 mg BID NGT Last administered on 10:09; Admin Dose 100 MG; Start 02/05/17 at 09:00 Miscellaneous Information VANCO TROUGH @ 2,300 ON ... ONCE ONCE XX ; Start at 23:00; Stop 02/05/17 at 23:01 Sodium Chloride 1,000 ml @ 100 mls/hr Q10H IV Last administered on 02/05/17 10:14; Admin Dose 100 MLS/HR; Start 02/05/17 at 10:00 Piperacillin Sod/ Tazobactam Sod (Zosyn 3.375gm/ 50 ml (Pmx)) 50 ml @ 200 mls/ hr Q8 IVPB ; Start 02/05/17 at 14:00 RAUL EUCEDA MD Feb 05, 2017 14:32
--- NOTE | 2017-02-05 14:33 | PN ---
DATE: 02/05/2017 SUBJECTIVE: Patient remains on a Saulo-Synephrine drip. Spiking fevers with a T-max last night 102.3 , T-current 99.6, pulse 96, respirations 14, blood pressure 95/55, saturation 99% on FIO2 of 30. W BC 23.8, H and H 8.3 and 27, platelets 198, neutrophils 88.7, BUN 15, creatinine 0.76. DIAGNOSTICS: Chest x-ray this morning revealed interval decreased edema. INDWELLINGS: Endotracheal tube, NG tube, Cullen catheter, right IJ triple lumen catheter and abdomin al JPs. PHYSICAL EXAMINATION: GENERAL: This is a well-developed, cachectic, middle-aged woman who is intubated, sedated, in no di stress. HEENT: Head atraumatic, normocephalic. Sclerae anicteric. Buccal mucosa dry. NECK: Supple. CHEST: Rise symmetrical. Breath sounds diminished to bases. HEART: S1, S2. ABDOMEN: Soft. Bowel tones present. EXTREMITIES: Without cyanosis. ASSESSMENT: 1. Shock, likely septic, patient is on empiric antibiotics, start yesterday with white blood cell c ount tracing down. 2. Status post alpha hemolytic strep urinary tract infection on admission. 3. Metastatic ovarian cancer status post metastatic ovarian CA status post ureteral dissection, ome ntectomy with splenectomy and cytoreduction done by Dr. Ramirez on 02/02/2017. 4. Bilateral hydronephrosis with urinary retention status post bilateral retrograde pyelograms with JJ stent insertion on 01/24/2017. 5. Anemia. 6. Respiratory failure with pulmonary edema, possible developing pneumonia. PLAN: The patient remains hemodynamically unstable, started on broad spectrum antibiotics, which we will continue. As per discussion with Dr. Ramirez, will change cefepime to Zosyn, monitor her mitali al function closely. Dictated By: CARLOS SOLIZ [employer]ER for DEONDRE STERLING/SEBASTIAN Conf#: [id number] DID#: [id number]
[2017-02-05] MEDS: PIPER-TAZO 3.375 GM IV (PMX) 50 ML IVPB SCH ×2 (14:43→22:19)
--- NOTE | 2017-02-05 18:59 | CONS ---
Date/Time of Note Date/Time of Note DATE: 02/05/17 TIME: 18:59 Assessment/Plan Assessment/Plan Chief Complaint/Hosp Course ADVANCED OVARIAN CANCER WITH MALIGNANT ASCITES AND PERITONEAL carcinomatosis Large conglomerate pelvic mass inseparable from the uterus, sigmoid colon and rectum containing clumps of calcification suspicious for calcified fibroids and containing cystic areas. Large amount of free intraperitoneal fluid measuring 25 HU with caking of the omentum compatible with carcinomatosis. Centralization of bowel without evidence of bowel obstruction. Moderately severe right hydronephrosis and hydroureter to the level of the pelvic mass. There is moderate left pelvocaliectasis without ureteral dilatation. The bladder is quite distended with urine. POST cystoscopy and insertion of bilateral JJ stents CT CHEST - EDOUARD, EXCEPT SMALL L PLEURAL EFFUSION CA 125- 337 POST debulking surgery AWAIT PATH ANEMIA, MICROCYTOSIS COMPLEX ANEMIA W-UP= + COMPONENT ACD DROP H/H POSTOP SERIAL H/H PRBC NEEDED PER STANDING ORDERS D/W RN LEUKOCYTOSIS REACTIVE, PARTIALLY 2 TO Splenectomy malignant ascites sp para 10.19. hydro AUR from ascites, sp ureteral stenting. Problems: Consultation Date/Type/Reason Admit Date/Time Jan 22, 2017 at 14:12 Initial Consult Date 01/27/17 Type of Consultation: HEMEON Referring Provider: RAUL EUCEDA MD 24 HR Interval Summary Free Text/Dictation all noted icu vent Exam/Review of Systems Vital Signs Vitals Vital Signs Date Time Temp Pulse Resp B/P Pulse Ox O2 Delivery O2 Flow Rate FiO2 02/05/17 18:00 109 13 94/54 99 Mechanical Ventilator 02/05/17 17:15 30 02/05/17 16:00 98.5 Intake and Output 02/04/17 02/04/17 02/05/17 15:00 23:00 07:00 Intake Total 1942.979 ml 1720.61 ml 1951.00 ml Output Total 615 ml 530 ml 670 ml Balance 1327.979 ml 1190.61 ml 1281.00 ml Exam HEENT exam; supple neck, no JVD. No lymphadenopathy. Midline trachea. No thyromegaly. Orally intubated. Pupils are small bilaterally. Patient has fair dentition. Chest exam; clear to auscultation. S1-S2 audible, no murmurs. Regular rhythm. Tachycardic. Abdomen exam; soft, bowel sounds are absent. Midline dressing in place. Abdominal drains are in place. Extremity exam; no peripheral edema. Pulses 1+ bilaterally. A[employer] MECH[employer]IC exam; patient is sedated. Results Result Diagram: 02/05/17 0400 02/05/17 0400 Results 24 hrs Laboratory Tests Test 02/04/17 19:20 02/05/17 04:00 Blood Gas Specimen Source Blood arterial Arterial Blood Date Drawn 02/04/2017 7:30:13 PM Arterial Blood pH (Temp corrected) 7.384 Arterial Blood pCO2 (Temp correct) 37.8 Arterial Blood pO2 (Temp corrected) 98.8 Arterial Blood HCO3 22.1 Arterial Blood Base Excess -2.6 Arterial Blood Oxygen Saturation 97.2 Bi Test ACCEPTAB Arterial Blood Gas Puncture Site Right Brachial Arterial Blood Carboxyhemoglobin 0.3 Arterial Blood Methemoglobin 0.5 Blood Gas A-a O2 Differential 70.7 H Oxyhemoglobin Percent 96.4 Total Hemoglobin 10.4 L Blood Gas Temperature 37.0 Blood Gas Respiration Rate 16.0 Blood Gas Actual Respiration Rate 22 Blood Gas Modality VENT - AC FiO2 30.0 Blood Gas Tidal Volume 400.0 Blood Gas Low PEEP Setting 5.0 Blood Gas Notified Whom MA Blood Gas Notified Time 02/04/2017 7:38:55 PM White Blood Count 23.8 #H Red Blood Count 2.93 L Hemoglobin 8.3 L Hematocrit 27.0 L Mean Corpuscular Volume 92.2 Mean Corpuscular Hemoglobin 28.3 L Mean Corpuscular Hemoglobin Concent 30.7 L Red Cell Distribution Width 19.5 H Platelet Count 198 Mean Platelet Volume 12.6 H Neutrophils % 88.7 H Lymphocytes % 3.5 L Monocytes % 6.2 Eosinophils % 0.0 Basophils % 0.1 Nucleated Red Blood Cells % 0.1 H Neutrophils # 21.1 H Lymphocytes # 0.8 Monocytes # 1.5 H Eosinophils # 0.0 Basophils # 0.0 Nucleated Red Blood Cells # 0.0 Sodium Level 144 Potassium Level 5.2 H Chloride Level 113 H Carbon Dioxide Level 26 Anion Gap 10 Blood Urea Nitrogen 15 Creatinine 0.76 Glucose Level 119 # Calcium Level 7.6 L Medications Medications Current Medications Ondansetron HCl (Zofran Tab) 4 mg Q6H PRN PO NAUSEA AND/OR VOMITING; Start at 16:00 Acetaminophen (Tylenol Tab) 650 mg Q6H PRN PO PAIN LEVEL 1-3 OR FEVER Last administered on 01/28/17 06:20; Admin Dose 650 MG; Start 01/22/17 at 16:00 Docusate Sodium (Colace) 100 mg Q12H PRN PO CONSTIPATION; Start 01/22/17 at 16 :00 Magnesium Hydroxide (Milk Of Mag) 30 ml DAILY PRN PO CONSTIPATION Last administered on 01/31/17 07:38; Admin Dose 30 ML; Start 01/22/17 at 16:00 Bisacodyl (Dulcolax) 5 mg DAILY PRN PO CONSTIPATION Last administered on 05:07; Admin Dose 5 MG; Start 01/22/17 at 16:00 Polyethylene Glycol (Miralax) 17 gm DAILY PO Last administered on 02/05/17 10: 09; Admin Dose 17 GM; Start 01/26/17 at 15:30 Sodium Biphosphate/ Sodium Phosphate (Fleet Enema) 133 ml DAILY PRN [place] CONSTIPATION Last administered on 01/27/17 06:17; Admin Dose 133 ML; Start at 20:30 Tolterodine Tartrate (Detrol La) 4 mg DAILY PO Last administered on 02/01/17 08:37; Admin Dose 4 MG; Start 01/27/17 at 15:30 Morphine Sulfate 2 mg 2 mg Q2H PRN IV PAIN LEVEL 7-10 Last administered on 02/04 08:05; Admin Dose 2 MG; Start 01/28/17 at 14:00 Ondansetron HCl/ Dextrose (Zofran Inj/D5W) 54 ml @ 108 mls/hr Q6H PRN IV NAUSEA AND/OR VOMITING; Start 01/31/17 at 12:00 Hydromorphone HCl (Dilaudid) 1 mg Q2H PRN IV PAIN LEVEL 6-10 Last administered on 02/02/17 21:43; Admin Dose 1 MG; Start 02/02/17 at 11:30 Diphenhydramine HCl 25 mg 25 mg Q6H PRN IV ITCHING Last administered on 23:55; Admin Dose 25 MG; Start 02/02/17 at 11:30 Epinephrine 4 mg/ Dextrose 250 ml @ 3.75 mls/hr PROTOCOL IV ; Start 02/02/17 at 18:00 Vasopressin 60 unit/Dextrose 60 ml @ 0 mls/hr Q12H IV ; Start 02/02/17 at 18:30 Norepinephrine 32 mg/Dextrose 250 ml @ 0.46 mls/hr TITRATE IV ; Start at 18:30 Phenylephrine HCl 160 mg/Dextrose 500 ml @ 18.75 mls/ hr TITRATE IV Last administered on 02/05/17 10:15; Admin Dose 22.5 MLS/HR; Start 02/02/17 at 18: 30 Propofol 100 ml @ 1.986 mls/ hr Q12H IV Last administered on 02/03/17 20:38 ; Admin Dose 7.944 MLS/HR; Start 02/03/17 at 09:00 Midazolam HCl (Versed) 50 ml @ 1 mls/hr TITRATE IV Last administered on 02:29; Admin Dose 2 MLS/HR; Start 02/04/17 at 00:30 Acetaminophen 650 mg 650 mg Q4H PRN GTB PAIN AND OR ELEVATED TEMP Last administered on 02/05/17 12:12; Admin Dose 650 MG; Start 02/04/17 at 08:30 Fentanyl 100 ml @ 2.5 mls/hr TITRATE IV Last administered on 02/05/17 18:52; Admin Dose 7.5 MLS/HR; Start 02/04/17 at 10:30 Vancomycin HCl/ Dextrose/Water (Vancocin/D5W) 150 ml @ 75 mls/hr Q12H IVPB Last administered on 02/05/17 12:06; Admin Dose 75 MLS/HR; Start 02/05/17 at 00 :00 Docusate Sodium (Colace Liquid Cup) 100 mg BID NGT Last administered on 10:09; Admin Dose 100 MG; Start 02/05/17 at 09:00 Miscellaneous Information VANCO TROUGH @ 2,300 ON ... ONCE ONCE XX ; Start at 23:00; Stop 02/05/17 at 23:01 Piperacillin Sod/ Tazobactam Sod (Zosyn 3.375gm/ 50 ml (Pmx)) 50 ml @ 200 mls/ hr Q8 IVPB Last administered on 02/05/17 14:43; Admin Dose 200 MLS/HR; Start 02/05/17 at 14:00 Diagnostic Test (Pha) 1 ea 1 ea Q4 XX ; Start 02/05/17 at 21:00 Fat Emulsion Intravenous 250 ml @ 10 mls/hr Q24H IV ; Start 02/05/17 at 20:00 Total Parenteral Nutrition (Tpn) 1,000 ml @ 70 mls/hr [id number] IV ; Start at 20:00 RAMIREZ YBARRA MD Feb 05, 2017 18:59
[2017-02-05] MEDS: FAT EMULSION 20% 250 ML IV SCH (19:35)
[2017-02-05] MEDS: TPN 1,000 ML IV SCH (19:35)
[2017-02-05] MEDS: ACCU-CHEK XX SCH (21:16)
[2017-02-06] VITALS (61 sets, daily range): BP systolic 95–126; BP diastolic 59–79; PULSE 109–132; RESP 14–27
[2017-02-06] MEDS: VANCOMYCIN 1 GM in NS 250 ML IVPB SCH ×3 (00:13→23:50)
[2017-02-06] MEDS: ACCU-CHEK XX SCH ×6 (01:30→20:13)
[2017-02-06] MEDS: ACETAMINOPHEN 650MG/20.3ML CUP GTB PRN ×3 (01:31→16:19)
[2017-02-06 05:10] LABS: ABNORMAL IP MESSAGE 1; BASOPHILS % 0.1 % (0.0-2.0); EOSINOPHILS % 0.1 % (0.0-7.0); HEMATOCRIT 26.6 % (37.0-47.0); HEMOGLOBIN 8.2 g/dl (12.0-16.0); LYMPHOCYTES # 0.6 10^3/ul (0.8-2.9); LYMPHOCYTES % 3.2 % (15.0-51.0); MEAN CORPUSCULAR HEMOGLOBIN 28.3 pg (29.0-33.0); MEAN CORPUSCULAR HGB CONC 30.8 g/dl (32.0-37.0); MEAN CORPUSCULAR VOLUME 91.7 fl (82.0-101.0); MEAN PLATELET VOLUME 11.8 fl (7.4-10.4); MONOCYTE # 1.1 10^3/ul (0.3-0.9); MONOCYTES % 6.7 % (0.0-11.0); NEUTROPHIL # 15.2 10^3/ul (1.6-7.5); NEUTROPHILS % 89.1 % (39.0-77.0); NUCLEATED RED BLOOD CELLS # 0.2 10^3/ul (0.0-0.0); NUCLEATED RED BLOOD CELLS% 1.3 /100WBC (0.0-0.0); PLATELET COUNT 194 10^3/UL (140-415); RED CELL DISTRIBUTION WIDTH 19.3 % (11.5-14.5); WHITE BLOOD COUNT 17.1 10^3/ul (4.8-10.8)
[2017-02-06] MEDS: VASOPRESSIN 60 UNIT in DEXTROSE 5% 57 ML IV SCH ×2 (05:22→16:48)
[2017-02-06] MEDS: PIPER-TAZO 3.375 GM IV (PMX) 50 ML IVPB SCH ×3 (05:38→23:50)
[2017-02-06 05:53] LABS: CALCIUM 8.2 mg/dl (8.4-10.2); CREATININE 0.8 mg/dl (0.44-1.00); POTASSIUM 4.2 mmol/L (3.5-5.1)
[2017-02-06 06:00] LABS: MAGNESIUM 1.7 mg/dl (1.7-2.5); PHOSPHORUS 2.9 mg/dl (2.5-4.9)
[2017-02-06 06:17] LABS: POSITIVE DIFF @See below
[2017-02-06] MEDS: PROPOFOL 100 ML IV SCH ×2 (07:43→20:09)
[2017-02-06] MEDS: FENTAnyl (DRIP) 1000 mcg/100mL 100 ML IV SCH (08:15)
[2017-02-06] MEDS: DOCUSATE SODIUM 10 MG/ML (10ML CUP) NGT SCH ×2 (08:50→20:10)
[2017-02-06] MEDS: TOLTERODINE (SR) 4 MG CAP PO SCH (08:50)
[2017-02-06] MEDS: POLYETHYLENE GLYCOL 17 GM PACKET PO SCH (08:50)
[2017-02-06] MEDS: TPN 1,000 ML IV SCH ×2 (10:51→23:50)
--- NOTE | 2017-02-06 11:00 | CONS ---
Date/Time of Note Date/Time of Note DATE: 02/06/17 TIME: 10:57 Consult Date/Type/Reason Admit Date/Time Jan 22, 2017 at 14:12 Initial Consult Date 02/03/17 Type of Consultation: Pulmonary Ordering Provider: RAUL EUCEDA MD Subjective Patient remains intubated on mechanical ventilation continues Versed and fentanyl drips. Currently on no vasopressors. Significant neuromuscular weakness. Objective Vital Signs Date Time Temp Pulse Resp B/P Pulse Ox O2 Delivery O2 Flow Rate FiO2 02/06/17 10:30 117 15 105/68 99 02/06/17 08:03 30 02/06/17 07:30 101.9 Mechanical Ventilator Intake and Output 02/05/17 02/05/17 02/06/17 15:00 23:00 07:00 Intake Total 838.00 ml 825.25 ml 1087.0 ml Output Total 615 ml 395 ml 630 ml Balance 223.00 ml 430.25 ml 457.0 ml Exam PHYSICAL EXAMINATION GENERAL: Frail currently ill-appearing lady, on mechanical ventilation. VITAL SIGNS: see below. HEENT: Pupils equal, round, and reactive to light. CARDIAC: S1, S2, no added sounds or murmurs CHEST: Diminished air entry bilaterally. ABDOMEN: Mildly distended. Distant bowel sounds EXTREMITIES: No cyanosis, clubbing edema +1 NEUROLOGIC: Generalized weakness Results/Medications Result Diagram: 02/06/17 0430 02/06/17 0430 Results 24 hrs Laboratory Tests Test 02/05/17 21:15 02/05/17 22:58 02/06/17 00:53 02/06/17 04:30 Bedside Glucose 115 118 Vancomycin Level Trough 7.7 L White Blood Count 17.1 #H Red Blood Count 2.90 L Hemoglobin 8.2 L Hematocrit 26.6 L Mean Corpuscular Volume 91.7 Mean Corpuscular Hemoglobin 28.3 L Mean Corpuscular Hemoglobin Concent 30.8 L Red Cell Distribution Width 19.3 H Platelet Count 194 Mean Platelet Volume 11.8 H Neutrophils % 89.1 H Lymphocytes % 3.2 L Monocytes % 6.7 Eosinophils % 0.1 Basophils % 0.1 Nucleated Red Blood Cells % 1.3 H Neutrophils # 15.2 H Lymphocytes # 0.6 L Monocytes # 1.1 H Eosinophils # 0.0 Basophils # 0.0 Nucleated Red Blood Cells # 0.2 H Sodium Level 144 Potassium Level 4.2 Chloride Level 113 H Carbon Dioxide Level 26 Anion Gap 9 Blood Urea Nitrogen 16 Creatinine 0.80 Glucose Level 119 Calcium Level 8.2 L Phosphorus Level 2.9 Magnesium Level 1.7 Prealbumin 3.4 L Test 02/06/17 04:38 02/06/17 07:41 Bedside Glucose 118 126 Medications Current Medications Ondansetron HCl (Zofran Tab) 4 mg Q6H PRN PO NAUSEA AND/OR VOMITING; Start at 16:00 Acetaminophen (Tylenol Tab) 650 mg Q6H PRN PO PAIN LEVEL 1-3 OR FEVER Last administered on 01/28/17 06:20; Admin Dose 650 MG; Start 01/22/17 at 16:00 Docusate Sodium (Colace) 100 mg Q12H PRN PO CONSTIPATION; Start 01/22/17 at 16 :00 Magnesium Hydroxide (Milk Of Mag) 30 ml DAILY PRN PO CONSTIPATION Last administered on 01/31/17 07:38; Admin Dose 30 ML; Start 01/22/17 at 16:00 Bisacodyl (Dulcolax) 5 mg DAILY PRN PO CONSTIPATION Last administered on 05:07; Admin Dose 5 MG; Start 01/22/17 at 16:00 Polyethylene Glycol (Miralax) 17 gm DAILY PO Last administered on 02/06/17 08: 50; Admin Dose 17 GM; Start 01/26/17 at 15:30 Sodium Biphosphate/ Sodium Phosphate (Fleet Enema) 133 ml DAILY PRN [place] CONSTIPATION Last administered on 01/27/17 06:17; Admin Dose 133 ML; Start at 20:30 Tolterodine Tartrate (Detrol La) 4 mg DAILY PO Last administered on 02/06/17 08:50; Admin Dose 4 MG; Start 01/27/17 at 15:30 Morphine Sulfate 2 mg 2 mg Q2H PRN IV PAIN LEVEL 7-10 Last administered on 02/04 08:05; Admin Dose 2 MG; Start 01/28/17 at 14:00 Ondansetron HCl/ Dextrose (Zofran Inj/D5W) 54 ml @ 108 mls/hr Q6H PRN IV NAUSEA AND/OR VOMITING; Start 01/31/17 at 12:00 Hydromorphone HCl (Dilaudid) 1 mg Q2H PRN IV PAIN LEVEL 6-10 Last administered on 02/02/17 21:43; Admin Dose 1 MG; Start 02/02/17 at 11:30 Diphenhydramine HCl 25 mg 25 mg Q6H PRN IV ITCHING Last administered on 23:55; Admin Dose 25 MG; Start 02/02/17 at 11:30 Epinephrine 4 mg/ Dextrose 250 ml @ 3.75 mls/hr PROTOCOL IV ; Start 02/02/17 at 18:00 Vasopressin 60 unit/Dextrose 60 ml @ 0 mls/hr Q12H IV ; Start 02/02/17 at 18:30 Norepinephrine 32 mg/Dextrose 250 ml @ 0.46 mls/hr TITRATE IV ; Start at 18:30 Phenylephrine HCl 160 mg/Dextrose 500 ml @ 18.75 mls/ hr TITRATE IV Last administered on 02/05/17 10:15; Admin Dose 22.5 MLS/HR; Start 02/02/17 at 18: 30 Propofol 100 ml @ 1.986 mls/ hr Q12H IV Last administered on 02/03/17 20:38 ; Admin Dose 7.944 MLS/HR; Start 02/03/17 at 09:00 Midazolam HCl (Versed) 50 ml @ 1 mls/hr TITRATE IV Last administered on 23:10; Admin Dose 2 MLS/HR; Start 02/04/17 at 00:30 Acetaminophen 650 mg 650 mg Q4H PRN GTB PAIN AND OR ELEVATED TEMP Last administered on 02/06/17 05:37; Admin Dose 650 MG; Start 02/04/17 at 08:30 Fentanyl (Sublimaze) 100 ml @ 2.5 mls/hr TITRATE IV Last administered on 08:15; Admin Dose 7.5 MLS/HR; Start 02/04/17 at 10:30 Docusate Sodium 100 mg 100 mg BID NGT Last administered on 02/06/17 08:50; Admin Dose 100 MG; Start 02/05/17 at 09:00 Piperacillin Sod/ Tazobactam Sod (Zosyn 3.375gm/ 50 ml (Pmx)) 50 ml @ 200 mls/ hr Q8 IVPB Last administered on 02/06/17 05:38; Admin Dose 200 MLS/HR; Start 02/05/17 at 14:00 Diagnostic Test (Pha) 1 ea 1 ea Q4 XX Last administered on 02/06/17 07:43; Admin Dose 1 EA; Start 02/05/17 at 21:00 Fat Emulsion Intravenous 250 ml @ 10 mls/hr Q24H IV Last administered on 19:35; Admin Dose 10 MLS/HR; Start 02/05/17 at 20:00 Total Parenteral Nutrition 1,000 ml @ 70 mls/hr [id number] IV Last administered on 02/06/17 10:51; Admin Dose 70 MLS/HR; Start 02/05/17 at 20:00 Vancomycin HCl (Vancocin) 250 ml @ 125 mls/hr Q12H IVPB Last administered on 02/06/17 00:13; Admin Dose 125 MLS/HR; Start 02/06/17 at 00:00 Assessment/Plan Chief Complaint/Hosp Course Assessment 1. Hypoxemic respiratory failure with alveolar hypoventilation neuromuscular weakness 2. Recent diagnosis of stage IV ovarian cancer status post hysterectomy with bilateral salpingo-oophorectomy 3. Postop ileus slowly resolving 4. Status post septic shock. 5. Postop persistent leukocytosis Plan 1. Decrease sedation 2. CPAP trial if tolerated 3. Continue postop surgical recommendations 4. DVT GI prophylaxis 5. Continues TPN Prognosis remains guarded. Problems: [facility]ARRO MD[facility] Feb 06, 2017 11:00
--- NOTE | 2017-02-06 12:15 | CONS ---
Date/Time of Note Date/Time of Note DATE: 02/06/17 TIME: 12:13 Assessment/Plan Assessment/Plan Chief Complaint/Hosp Course ADVANCED OVARIAN CANCER WITH MALIGNANT ASCITES AND PERITONEAL carcinomatosis Large conglomerate pelvic mass inseparable from the uterus, sigmoid colon and rectum containing clumps of calcification suspicious for calcified fibroids and containing cystic areas. Large amount of free intraperitoneal fluid measuring 25 HU with caking of the omentum compatible with carcinomatosis. Centralization of bowel without evidence of bowel obstruction. Moderately severe right hydronephrosis and hydroureter to the level of the pelvic mass. There is moderate left pelvocaliectasis without ureteral dilatation. The bladder is quite distended with urine. POST cystoscopy and insertion of bilateral JJ stents CT CHEST - EDOUARD, EXCEPT SMALL L PLEURAL EFFUSION CA 125- 337 POST debulking surgery AWAIT PATH ANEMIA, MICROCYTOSIS COMPLEX ANEMIA W-UP= + COMPONENT ACD DROP H/H POSTOP SERIAL H/H PRBC NEEDED PER STANDING ORDERS D/W RN LEUKOCYTOSIS REACTIVE, PARTIALLY 2 TO Splenectomy malignant ascites sp para 10.19. hydro AUR from ascites, sp ureteral stenting. Problems: Consultation Date/Type/Reason Admit Date/Time Jan 22, 2017 at 14:12 Initial Consult Date 01/27/17 Type of Consultation: hemeonx Referring Provider: RAUL EUCEDA MD 24 HR Interval Summary Free Text/Dictation NO NEW EVENTS ICU ON VENT COUNT DOWN NO ACTIVE BLEEDING Exam/Review of Systems Vital Signs Vitals Vital Signs Date Time Temp Pulse Resp B/P Pulse Ox O2 Delivery O2 Flow Rate FiO2 02/06/17 10:30 117 15 105/68 99 02/06/17 08:03 30 02/06/17 07:30 101.9 Mechanical Ventilator Intake and Output 02/05/17 02/05/17 02/06/17 15:00 23:00 07:00 Intake Total 838.00 ml 825.25 ml 1087.0 ml Output Total 615 ml 395 ml 630 ml Balance 223.00 ml 430.25 ml 457.0 ml Exam HEENT exam; supple neck, no JVD. No lymphadenopathy. Midline trachea. No thyromegaly. Orally intubated. Pupils are small bilaterally. Patient has fair dentition. Chest exam; clear to auscultation. S1-S2 audible, no murmurs. Regular rhythm. Tachycardic. Abdomen exam; soft, bowel sounds are absent. Midline dressing in place. Abdominal drains are in place. Extremity exam; no peripheral edema. Pulses 1+ bilaterally. 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 Results Result Diagram: 02/06/17 0430 02/06/17 0430 Results 24 hrs Laboratory Tests Test 02/05/17 21:15 02/05/17 22:58 02/06/17 00:53 02/06/17 04:30 Bedside Glucose 115 118 Vancomycin Level Trough 7.7 L White Blood Count 17.1 #H Red Blood Count 2.90 L Hemoglobin 8.2 L Hematocrit 26.6 L Mean Corpuscular Volume 91.7 Mean Corpuscular Hemoglobin 28.3 L Mean Corpuscular Hemoglobin Concent 30.8 L Red Cell Distribution Width 19.3 H Platelet Count 194 Mean Platelet Volume 11.8 H Neutrophils % 89.1 H Lymphocytes % 3.2 L Monocytes % 6.7 Eosinophils % 0.1 Basophils % 0.1 Nucleated Red Blood Cells % 1.3 H Neutrophils # 15.2 H Lymphocytes # 0.6 L Monocytes # 1.1 H Eosinophils # 0.0 Basophils # 0.0 Nucleated Red Blood Cells # 0.2 H Sodium Level 144 Potassium Level 4.2 Chloride Level 113 H Carbon Dioxide Level 26 Anion Gap 9 Blood Urea Nitrogen 16 Creatinine 0.80 Glucose Level 119 Calcium Level 8.2 L Phosphorus Level 2.9 Magnesium Level 1.7 Prealbumin 3.4 L Test 02/06/17 04:38 02/06/17 07:41 Bedside Glucose 118 126 Medications Medications Current Medications Ondansetron HCl (Zofran Tab) 4 mg Q6H PRN PO NAUSEA AND/OR VOMITING; Start at 16:00 Acetaminophen (Tylenol Tab) 650 mg Q6H PRN PO PAIN LEVEL 1-3 OR FEVER Last administered on 01/28/17 06:20; Admin Dose 650 MG; Start 01/22/17 at 16:00 Docusate Sodium (Colace) 100 mg Q12H PRN PO CONSTIPATION; Start 01/22/17 at 16 :00 Magnesium Hydroxide (Milk Of Mag) 30 ml DAILY PRN PO CONSTIPATION Last administered on 01/31/17 07:38; Admin Dose 30 ML; Start 01/22/17 at 16:00 Bisacodyl (Dulcolax) 5 mg DAILY PRN PO CONSTIPATION Last administered on 05:07; Admin Dose 5 MG; Start 01/22/17 at 16:00 Polyethylene Glycol (Miralax) 17 gm DAILY PO Last administered on 02/06/17 08: 50; Admin Dose 17 GM; Start 01/26/17 at 15:30 Sodium Biphosphate/ Sodium Phosphate (Fleet Enema) 133 ml DAILY PRN [place] CONSTIPATION Last administered on 01/27/17 06:17; Admin Dose 133 ML; Start at 20:30 Tolterodine Tartrate (Detrol La) 4 mg DAILY PO Last administered on 02/06/17 08:50; Admin Dose 4 MG; Start 01/27/17 at 15:30 Morphine Sulfate 2 mg 2 mg Q2H PRN IV PAIN LEVEL 7-10 Last administered on 02/04 08:05; Admin Dose 2 MG; Start 01/28/17 at 14:00 Ondansetron HCl/ Dextrose (Zofran Inj/D5W) 54 ml @ 108 mls/hr Q6H PRN IV NAUSEA AND/OR VOMITING; Start 01/31/17 at 12:00 Hydromorphone HCl (Dilaudid) 1 mg Q2H PRN IV PAIN LEVEL 6-10 Last administered on 02/02/17 21:43; Admin Dose 1 MG; Start 02/02/17 at 11:30 Diphenhydramine HCl 25 mg 25 mg Q6H PRN IV ITCHING Last administered on 23:55; Admin Dose 25 MG; Start 02/02/17 at 11:30 Epinephrine 4 mg/ Dextrose 250 ml @ 3.75 mls/hr PROTOCOL IV ; Start 02/02/17 at 18:00 Vasopressin 60 unit/Dextrose 60 ml @ 0 mls/hr Q12H IV ; Start 02/02/17 at 18:30 Norepinephrine 32 mg/Dextrose 250 ml @ 0.46 mls/hr TITRATE IV ; Start at 18:30 Phenylephrine HCl 160 mg/Dextrose 500 ml @ 18.75 mls/ hr TITRATE IV Last administered on 02/05/17 10:15; Admin Dose 22.5 MLS/HR; Start 02/02/17 at 18: 30 Propofol 100 ml @ 1.986 mls/ hr Q12H IV Last administered on 02/03/17 20:38 ; Admin Dose 7.944 MLS/HR; Start 02/03/17 at 09:00 Midazolam HCl (Versed) 50 ml @ 1 mls/hr TITRATE IV Last administered on 23:10; Admin Dose 2 MLS/HR; Start 02/04/17 at 00:30 Acetaminophen 650 mg 650 mg Q4H PRN GTB PAIN AND OR ELEVATED TEMP Last administered on 02/06/17 05:37; Admin Dose 650 MG; Start 02/04/17 at 08:30 Fentanyl (Sublimaze) 100 ml @ 2.5 mls/hr TITRATE IV Last administered on 08:15; Admin Dose 7.5 MLS/HR; Start 02/04/17 at 10:30 Docusate Sodium 100 mg 100 mg BID NGT Last administered on 02/06/17 08:50; Admin Dose 100 MG; Start 02/05/17 at 09:00 Piperacillin Sod/ Tazobactam Sod (Zosyn 3.375gm/ 50 ml (Pmx)) 50 ml @ 200 mls/ hr Q8 IVPB Last administered on 02/06/17 05:38; Admin Dose 200 MLS/HR; Start 02/05/17 at 14:00 Diagnostic Test (Pha) 1 ea 1 ea Q4 XX Last administered on 02/06/17 07:43; Admin Dose 1 EA; Start 02/05/17 at 21:00 Fat Emulsion Intravenous 250 ml @ 10 mls/hr Q24H IV Last administered on 19:35; Admin Dose 10 MLS/HR; Start 02/05/17 at 20:00 Total Parenteral Nutrition 1,000 ml @ 70 mls/hr [id number] IV Last administered on 02/06/17 10:51; Admin Dose 70 MLS/HR; Start 02/05/17 at 20:00 Vancomycin HCl (Vancocin) 250 ml @ 125 mls/hr Q12H IVPB Last administered on 02/06/17 00:13; Admin Dose 125 MLS/HR; Start 02/06/17 at 00:00 Lorazepam (Ativan) 2 mg Q2 PRN IV AGITATION; Start 02/06/17 at 12:00 RAMIREZ YBARRA MD Feb 06, 2017 12:15
--- NOTE | 2017-02-06 15:07 | PN ---
DATE: 02/06/2017 SUBJECTIVE: No acute changes. The patient remains intubated on pressors, still with fevers and tac hycardia with a T-max this morning 102.9, pulse 117, respirations 15, blood pressure 105/68, saturat ion 99% on vent. WBC today 17.1, H and H 8.2 and 26.6, platelets 194, neutrophils 89.1, BUN 16, creatinine 0.80. MICROBIOLOGY: Blood culture on 02/04/2017 growing gram-positive cocci in clusters, 1 out of 2 sets. Urine culture negative. INDWELLINGS: Endotracheal tube, NG tube, bilateral JPs, right IJ triple lumen catheter, Cullen. ANTIMICROBIALS: The patient is on: 1. Vancomycin. 2. Zosyn. PHYSICAL EXAMINATION: GENERAL: This is a well-developed, ill-appearing, middle-aged woman who is intubated, sedated, in n o distress. HEENT: Head atraumatic, normocephalic. Sclerae anicteric. Buccal mucosa dry. NECK: Supple. CHEST: Rise symmetrical. Breath sounds diminished to bases. HEART: S1, S2. ABDOMEN: Soft, bowel tones present. EXTREMITIES: Without cyanosis. Bilateral trace edema. ASSESSMENT: 1. Septic shock. 2. Bacteremia with blood culture growing gram-positive cocci. 3. Status post alpha hemolytic strep urinary tract infection on admission. 4. Metastatic ovarian cancer, status post ureteral dissection, omentectomy with splenectomy and cyt oreduction on 02/02/2017. 6. Bilateral hydronephrosis, status post JJ stent insertion on 01/24/2017. 7. Respiratory failure. 8. Anemia. PLAN: Remains hemodynamically unstable, covered with broad spectrum antibiotics. She is being foll owed by multiple consultants, white blood cell count tracing down. We will continue her on current regimen. Consider triple lumen catheter change. Dictated By: CARLOS SOLIZ SLEEVE SETTER for DEONDRE STERLING/SEBASTIAN Conf#: [id number] DID#: [id number]
--- NOTE | 2017-02-06 15:27 | PN ---
Date/Time of Note Date/Time of Note DATE: 02/06/17 TIME: 15:24 Assessment/Plan VTE Prophylaxis VTE Prophylaxis Intervention: SCD's Lines/Catheters [facility] Central Line Central line still needed: Yes Urinary Cath still in place: Yes Reason Cath still needed: urinary retention Assessment/Plan Assessment/Plan 56 yo F with known stage 4 ovarian Ca here admitted for abd pain from malignant ascites sp para 10.19. hospitalization also notable for hydro AUR from her ascites, sp ureteral stenting also sp cytoreduction 10.30. PLAN pressors weaned extubation as per pulm onc also on consult though patient already has an outpatient oncologist. empiric abx started yesterday for fever, urine cultures negative, CXR without focal consolidation. respiratory culture with NRF. + blood culture likely contaminant though await further results will attempt to de escalate abx tomorrow TPN given ileus AUR: cont sen. critical care time: 30 minutes Subjective 24 Hr Interval Summary Free Text/Dictation pressors off Exam/Review of Systems Vital Signs Vitals Vital Signs Date Time Temp Pulse Resp B/P Pulse Ox O2 Delivery O2 Flow Rate FiO2 02/06/17 14:00 123 18 111/62 99 02/06/17 13:36 30 02/06/17 12:00 100.1 02/06/17 07:30 Mechanical Ventilator Intake and Output 02/05/17 02/05/17 02/06/17 15:00 23:00 07:00 Intake Total 838.00 ml 825.25 ml 1087.0 ml Output Total 615 ml 395 ml 630 ml Balance 223.00 ml 430.25 ml 457.0 ml Exam intubated and sedated no mrg lungs clear abd mod distended +LE edema Results Result Diagram: 02/06/17 0430 02/06/17 0430 Results 24 hrs Laboratory Tests Test 02/05/17 21:15 02/05/17 22:58 02/06/17 00:53 02/06/17 04:30 Bedside Glucose 115 118 Vancomycin Level Trough 7.7 L White Blood Count 17.1 #H Red Blood Count 2.90 L Hemoglobin 8.2 L Hematocrit 26.6 L Mean Corpuscular Volume 91.7 Mean Corpuscular Hemoglobin 28.3 L Mean Corpuscular Hemoglobin Concent 30.8 L Red Cell Distribution Width 19.3 H Platelet Count 194 Mean Platelet Volume 11.8 H Neutrophils % 89.1 H Lymphocytes % 3.2 L Monocytes % 6.7 Eosinophils % 0.1 Basophils % 0.1 Nucleated Red Blood Cells % 1.3 H Neutrophils # 15.2 H Lymphocytes # 0.6 L Monocytes # 1.1 H Eosinophils # 0.0 Basophils # 0.0 Nucleated Red Blood Cells # 0.2 H Sodium Level 144 Potassium Level 4.2 Chloride Level 113 H Carbon Dioxide Level 26 Anion Gap 9 Blood Urea Nitrogen 16 Creatinine 0.80 Glucose Level 119 Calcium Level 8.2 L Phosphorus Level 2.9 Magnesium Level 1.7 Prealbumin 3.4 L Test 02/06/17 04:38 02/06/17 07:41 02/06/17 12:20 Bedside Glucose 118 126 136 Medications Medications Current Medications Ondansetron HCl (Zofran Tab) 4 mg Q6H PRN PO NAUSEA AND/OR VOMITING; Start at 16:00 Acetaminophen (Tylenol Tab) 650 mg Q6H PRN PO PAIN LEVEL 1-3 OR FEVER Last administered on 01/28/17 06:20; Admin Dose 650 MG; Start 01/22/17 at 16:00 Docusate Sodium (Colace) 100 mg Q12H PRN PO CONSTIPATION; Start 01/22/17 at 16 :00 Magnesium Hydroxide (Milk Of Mag) 30 ml DAILY PRN PO CONSTIPATION Last administered on 01/31/17 07:38; Admin Dose 30 ML; Start 01/22/17 at 16:00 Bisacodyl (Dulcolax) 5 mg DAILY PRN PO CONSTIPATION Last administered on 05:07; Admin Dose 5 MG; Start 01/22/17 at 16:00 Polyethylene Glycol (Miralax) 17 gm DAILY PO Last administered on 02/06/17 08: 50; Admin Dose 17 GM; Start 01/26/17 at 15:30 Sodium Biphosphate/ Sodium Phosphate (Fleet Enema) 133 ml DAILY PRN [place] CONSTIPATION Last administered on 01/27/17 06:17; Admin Dose 133 ML; Start at 20:30 Tolterodine Tartrate (Detrol La) 4 mg DAILY PO Last administered on 02/06/17 08:50; Admin Dose 4 MG; Start 01/27/17 at 15:30 Morphine Sulfate 2 mg 2 mg Q2H PRN IV PAIN LEVEL 7-10 Last administered on 02/04 08:05; Admin Dose 2 MG; Start 01/28/17 at 14:00 Ondansetron HCl/ Dextrose (Zofran Inj/D5W) 54 ml @ 108 mls/hr Q6H PRN IV NAUSEA AND/OR VOMITING; Start 01/31/17 at 12:00 Hydromorphone HCl (Dilaudid) 1 mg Q2H PRN IV PAIN LEVEL 6-10 Last administered on 02/02/17 21:43; Admin Dose 1 MG; Start 02/02/17 at 11:30 Diphenhydramine HCl 25 mg 25 mg Q6H PRN IV ITCHING Last administered on 23:55; Admin Dose 25 MG; Start 02/02/17 at 11:30 Epinephrine 4 mg/ Dextrose 250 ml @ 3.75 mls/hr PROTOCOL IV ; Start 02/02/17 at 18:00 Vasopressin 60 unit/Dextrose 60 ml @ 0 mls/hr Q12H IV ; Start 02/02/17 at 18:30 Norepinephrine 32 mg/Dextrose 250 ml @ 0.46 mls/hr TITRATE IV ; Start at 18:30 Phenylephrine HCl 160 mg/Dextrose 500 ml @ 18.75 mls/ hr TITRATE IV Last administered on 02/05/17 10:15; Admin Dose 22.5 MLS/HR; Start 02/02/17 at 18: 30 Propofol 100 ml @ 1.986 mls/ hr Q12H IV Last administered on 02/03/17 20:38 ; Admin Dose 7.944 MLS/HR; Start 02/03/17 at 09:00 Midazolam HCl (Versed) 50 ml @ 1 mls/hr TITRATE IV Last administered on 23:10; Admin Dose 2 MLS/HR; Start 02/04/17 at 00:30 Acetaminophen 650 mg 650 mg Q4H PRN GTB PAIN AND OR ELEVATED TEMP Last administered on 02/06/17 05:37; Admin Dose 650 MG; Start 02/04/17 at 08:30 Fentanyl (Sublimaze) 100 ml @ 2.5 mls/hr TITRATE IV Last administered on 08:15; Admin Dose 7.5 MLS/HR; Start 02/04/17 at 10:30 Docusate Sodium 100 mg 100 mg BID NGT Last administered on 02/06/17 08:50; Admin Dose 100 MG; Start 02/05/17 at 09:00 Piperacillin Sod/ Tazobactam Sod (Zosyn 3.375gm/ 50 ml (Pmx)) 50 ml @ 200 mls/ hr Q8 IVPB Last administered on 02/06/17 14:30; Admin Dose 200 MLS/HR; Start 02/05/17 at 14:00 Diagnostic Test (Pha) 1 ea 1 ea Q4 XX Last administered on 02/06/17 12:25; Admin Dose 1 EA; Start 02/05/17 at 21:00 Fat Emulsion Intravenous 250 ml @ 10 mls/hr Q24H IV Last administered on 19:35; Admin Dose 10 MLS/HR; Start 02/05/17 at 20:00 Total Parenteral Nutrition 1,000 ml @ 70 mls/hr [id number] IV Last administered on 02/06/17 10:51; Admin Dose 70 MLS/HR; Start 02/05/17 at 20:00 Vancomycin HCl (Vancocin) 250 ml @ 125 mls/hr Q12H IVPB Last administered on 02/06/17 12:25; Admin Dose 125 MLS/HR; Start 02/06/17 at 00:00 Lorazepam (Ativan) 2 mg Q2 PRN IV AGITATION; Start 02/06/17 at 12:00 DAYANARA BROWN MD Feb 06, 2017 15:27
[2017-02-06 15:29] LABS: AADO2 Arterial 55.7 mmHg (7.0-24.0); Allen Test ACCEPTAB; Arterial Base Excess -3.5 mmol/L (-3.0-3); Arterial COHb 0.3 % (0.0-3.0); Arterial Fraction of Oxyhgb 97.8 % (93.0-99.0); Arterial HCO3 19.7 mmol/L (22.0-26.0); Arterial MetHb 0.4 % (0.0-1.5); Arterial Total Hemglobin 8.7 g/dl (12.0-18.0); Blood Gas PS 10; MODE VENT - CPAP
[2017-02-06] MEDS: LORAZEPAM 2 MG INJ IV PRN (16:19)
[2017-02-06] MEDS: morphine 2 MG INJ IV PRN (18:41)
[2017-02-06] MEDS: FAT EMULSION 20% 250 ML IV SCH (20:10)
[2017-02-06] MEDS: ACETAMINOPHEN 325 MG TAB PO PRN (23:54)
[2017-02-07] VITALS (26 sets, daily range): BP systolic 110–147; BP diastolic 67–90; PULSE 109–131; RESP 18–32
[2017-02-07] MEDS: LORAZEPAM 2 MG INJ IV PRN ×2 (00:09→20:23)
[2017-02-07] MEDS: ACCU-CHEK XX SCH ×4 (01:00→21:18)
[2017-02-07] MEDS: morphine 2 MG INJ IV PRN ×4 (01:12→20:37)
[2017-02-07] MEDS: PIPER-TAZO 3.375 GM IV (PMX) 50 ML IVPB SCH ×3 (05:05→21:17)
[2017-02-07 05:24] LABS: ABNORMAL IP MESSAGE 1; EOSINOPHILS % 0.2 % (0.0-7.0); HEMATOCRIT 24.8 % (37.0-47.0); HEMOGLOBIN 7.7 g/dl (12.0-16.0); LYMPHOCYTES # 0.5 10^3/ul (0.8-2.9); LYMPHOCYTES % 3.6 % (15.0-51.0); MEAN CORPUSCULAR HEMOGLOBIN 28.1 pg (29.0-33.0); MEAN CORPUSCULAR VOLUME 90.5 fl (82.0-101.0); MEAN PLATELET VOLUME 12.8 fl (7.4-10.4); MONOCYTE # 1.2 10^3/ul (0.3-0.9); MONOCYTES % 9.2 % (0.0-11.0); NEUTROPHIL # 11.5 10^3/ul (1.6-7.5); NEUTROPHILS % 86.3 % (39.0-77.0); NUCLEATED RED BLOOD CELLS # 0.2 10^3/ul (0.0-0.0); NUCLEATED RED BLOOD CELLS% 1.3 /100WBC (0.0-0.0); PLATELET COUNT 239 10^3/UL (140-415); RED BLOOD COUNT 2.74 10^6/ul (4.20-5.40); WHITE BLOOD COUNT 13.3 10^3/ul (4.8-10.8)
[2017-02-07 05:34] LABS: POSITIVE DIFF @See below
[2017-02-07 06:07] LABS: CALCIUM 8.1 mg/dl (8.4-10.2); CREATININE 0.51 mg/dl (0.44-1.00); MAGNESIUM 1.6 mg/dl (1.7-2.5); PHOSPHORUS 2.2 mg/dl (2.5-4.9); POTASSIUM 3.2 mmol/L (3.5-5.1)
[2017-02-07] MEDS: VASOPRESSIN 60 UNIT in DEXTROSE 5% 57 ML IV SCH ×2 (06:30→18:09)
[2017-02-07] MEDS: PROPOFOL 100 ML IV SCH ×2 (08:40→20:26)
[2017-02-07] MEDS: TOLTERODINE (SR) 4 MG CAP PO SCH (08:40)
[2017-02-07] MEDS: POLYETHYLENE GLYCOL 17 GM PACKET PO SCH (08:41)
[2017-02-07] MEDS: DOCUSATE SODIUM 10 MG/ML (10ML CUP) NGT SCH ×2 (08:41→20:31)
--- NOTE | 2017-02-07 08:55 | RADRPT ---
PROCEDURE: XR Chest. CLINICAL INDICATION: Pneumonia, congestive heart failure TECHNIQUE: Single frontal view of the chest was obtained COMPARISON: 02/05/2017 FINDINGS: Stable endotracheal tube, nasogastric tube and right internal jugular approach central venous cathet er. Stable low lung volumes with bibasilar atelectasis. No pleural effusion or pneumothorax. Stable cardiomediastinal silhouette. No acute osseous abnormality. IMPRESSION: Stable chest radiograph. No convincing interval change compared to chest radiograph from 2 days cece pak RPTAT: EE Physician Grant Date Time Electronically viewed and signed by Physician Grant on 02/07/2017 08:55 /
[2017-02-07] MEDS ORDERED: POTASSIUM CHLORIDE 250 ML IVPB ONE (09:30)
[2017-02-07] MEDS ORDERED: MAGNESIUM SULFATE 2 GM/50 ML 50 ML IVPB ONE (09:30)
[2017-02-07 10:51] LABS: AADO2 Arterial 48.6 mmHg (7.0-24.0); Allen Test ACCEPTAB; Arterial Base Excess 0.7 mmol/L (-3.0-3); Arterial COHb 0.3 % (0.0-3.0); Arterial Fraction of Oxyhgb 97.6 % (93.0-99.0); Arterial HCO3 23.9 mmol/L (22.0-26.0); Arterial MetHb 0.4 % (0.0-1.5); Blood Gas PS 10; MODE VENT - CPAP
--- NOTE | 2017-02-07 10:58 | CONS ---
Date/Time of Note Date/Time of Note DATE: 02/07/17 TIME: 10:54 Consult Date/Type/Reason Admit Date/Time Jan 22, 2017 at 14:12 Initial Consult Date 02/03/17 Type of Consultation: Pulm/CCM Ordering Provider: RAUL EUCEDA MD Subjective No events on CPAP/PS--> tolerating well with RSBI of 80 Objective Vital Signs Date Time Temp Pulse Resp B/P Pulse Ox O2 Delivery O2 Flow Rate FiO2 02/07/17 10:00 129 18 136/78 100 Mechanical Ventilator 02/07/17 08:00 30 02/07/17 07:30 100.0 Intake and Output 02/06/17 02/06/17 02/07/17 15:00 23:00 07:00 Intake Total 1032.5 ml 860 ml 750 ml Output Total 525 ml 445 ml 760 ml Balance 507.5 ml 415 ml -10 ml Exam HEENT: Neck supple; no JVD; no LAD CVS: RRR, S1 and S2 CHEST: Clear ABD: Soft, NT, + BS EXT: No c/c; + edema Results/Medications Result Diagram: 02/07/17 0450 02/07/17 0450 Results 24 hrs Laboratory Tests Test 02/06/17 12:20 02/06/17 15:30 02/06/17 16:13 02/06/17 20:12 Bedside Glucose 136 135 121 Blood Gas Specimen Source Blood arterial Arterial Blood Date Drawn 02/06/2017 3:20:03 PM Arterial Blood pH (Temp corrected) 7.456 H Arterial Blood pCO2 (Temp correct) 28.6 L Arterial Blood pO2 (Temp corrected) 124.6 H Arterial Blood HCO3 19.7 L Arterial Blood Base Excess -3.5 L Arterial Blood Oxygen Saturation 98.5 H Bi Test ACCEPTAB Arterial Blood Gas Puncture Site Right Radial Arterial Blood Carboxyhemoglobin 0.3 Arterial Blood Methemoglobin 0.4 Blood Gas A-a O2 Differential 55.7 H Oxyhemoglobin Percent 97.8 Total Hemoglobin 8.7 L Blood Gas Temperature 37.0 Blood Gas Actual Respiration Rate 21 Blood Gas Modality VENT - CPAP FiO2 30.0 Blood Gas Low PEEP Setting 5.0 Blood Gas Pressure Support 10 Blood Gas Notified Whom JLD Blood Gas Notified Time 02/06/2017 3:28:52 PM Test 02/07/17 00:28 02/07/17 04:50 02/07/17 05:07 02/07/17 08:39 Bedside Glucose 136 124 140 White Blood Count 13.3 #H Red Blood Count 2.74 L Hemoglobin 7.7 L Hematocrit 24.8 L Mean Corpuscular Volume 90.5 Mean Corpuscular Hemoglobin 28.1 L Mean Corpuscular Hemoglobin Concent 31.0 L Red Cell Distribution Width 19.0 H Platelet Count 239 # Mean Platelet Volume 12.8 H Neutrophils % 86.3 H Lymphocytes % 3.6 L Monocytes % 9.2 Eosinophils % 0.2 Basophils % 0.0 Nucleated Red Blood Cells % 1.3 H Neutrophils # 11.5 H Lymphocytes # 0.5 L Monocytes # 1.2 H Eosinophils # 0.0 Basophils # 0.0 Nucleated Red Blood Cells # 0.2 H Sodium Level 144 Potassium Level 3.2 L Chloride Level 111 H Carbon Dioxide Level 26 Anion Gap 10 Blood Urea Nitrogen 15 Creatinine 0.51 Glucose Level 118 Calcium Level 8.1 L Phosphorus Level 2.2 L Magnesium Level 1.6 L Test 02/07/17 10:00 Blood Gas Specimen Source Blood arterial Arterial Blood Date Drawn 02/07/2017 10:40:00 AM Arterial Blood pH (Temp corrected) 7.487 H Arterial Blood pCO2 (Temp correct) 32.3 L Arterial Blood pO2 (Temp corrected) 127.4 H Arterial Blood HCO3 23.9 Arterial Blood Base Excess 0.7 Arterial Blood Oxygen Saturation 98.3 H Bi Test ACCEPTAB Arterial Blood Gas Puncture Site Right Radial Arterial Blood Carboxyhemoglobin 0.3 Arterial Blood Methemoglobin 0.4 Blood Gas A-a O2 Differential 48.6 H Oxyhemoglobin Percent 97.6 Total Hemoglobin 8.0 L Blood Gas Temperature 37.0 Blood Gas Actual Respiration Rate 24 Blood Gas Modality VENT - CPAP FiO2 30.0 Blood Gas Low PEEP Setting 5.0 Blood Gas Pressure Support 10 Blood Gas Notified Whom DT Blood Gas Notified Time 02/07/2017 10:50:00 AM Medications Current Medications Ondansetron HCl (Zofran Tab) 4 mg Q6H PRN PO NAUSEA AND/OR VOMITING; Start at 16:00 Acetaminophen (Tylenol Tab) 650 mg Q6H PRN PO PAIN LEVEL 1-3 OR FEVER Last administered on 02/06/17t 23:54; Admin Dose 650 MG; Start 01/22/17 at 16:00 Docusate Sodium (Colace) 100 mg Q12H PRN PO CONSTIPATION; Start 01/22/17 at 16 :00 Magnesium Hydroxide (Milk Of Mag) 30 ml DAILY PRN PO CONSTIPATION Last administered on 01/31/17 07:38; Admin Dose 30 ML; Start 01/22/17 at 16:00 Bisacodyl (Dulcolax) 5 mg DAILY PRN PO CONSTIPATION Last administered on 05:07; Admin Dose 5 MG; Start 01/22/17 at 16:00 Polyethylene Glycol (Miralax) 17 gm DAILY PO Last administered on 02/07/17 08: 41; Admin Dose 17 GM; Start 01/26/17 at 15:30 Sodium Biphosphate/ Sodium Phosphate (Fleet Enema) 133 ml DAILY PRN ID CONSTIPATION Last administered on 01/27/17 06:17; Admin Dose 133 ML; Start at 20:30 Tolterodine Tartrate (Detrol La) 4 mg DAILY PO Last administered on 02/06/17 08:50; Admin Dose 4 MG; Start 01/27/17 at 15:30 Morphine Sulfate 2 mg 2 mg Q2H PRN IV PAIN LEVEL 7-10 Last administered on 02/07 05:06; Admin Dose 2 MG; Start 01/28/17 at 14:00 Ondansetron HCl/ Dextrose (Zofran Inj/D5W) 54 ml @ 108 mls/hr Q6H PRN IV NAUSEA AND/OR VOMITING; Start 01/31/17 at 12:00 Hydromorphone HCl (Dilaudid) 1 mg Q2H PRN IV PAIN LEVEL 6-10 Last administered on 02/02/17 21:43; Admin Dose 1 MG; Start 02/02/17 at 11:30 Diphenhydramine HCl 25 mg 25 mg Q6H PRN IV ITCHING Last administered on 23:55; Admin Dose 25 MG; Start 02/02/17 at 11:30 Epinephrine 4 mg/ Dextrose 250 ml @ 3.75 mls/hr PROTOCOL IV ; Start 02/02/17 at 18:00 Vasopressin 60 unit/Dextrose 60 ml @ 0 mls/hr Q12H IV ; Start 02/02/17 at 18:30 Norepinephrine 32 mg/Dextrose 250 ml @ 0.46 mls/hr TITRATE IV ; Start at 18:30 Phenylephrine HCl 160 mg/Dextrose 500 ml @ 18.75 mls/ hr TITRATE IV Last administered on 02/05/17 10:15; Admin Dose 22.5 MLS/HR; Start 02/02/17 at 18: 30 Propofol 100 ml @ 1.986 mls/ hr Q12H IV Last administered on 02/03/17 20:38 ; Admin Dose 7.944 MLS/HR; Start 02/03/17 at 09:00 Midazolam HCl (Versed) 50 ml @ 1 mls/hr TITRATE IV Last administered on 23:10; Admin Dose 2 MLS/HR; Start 02/04/17 at 00:30 Acetaminophen 650 mg 650 mg Q4H PRN GTB PAIN AND OR ELEVATED TEMP Last administered on 02/06/17 16:19; Admin Dose 650 MG; Start 02/04/17 at 08:30 Fentanyl (Sublimaze) 100 ml @ 2.5 mls/hr TITRATE IV Last administered on 08:15; Admin Dose 7.5 MLS/HR; Start 02/04/17 at 10:30 Docusate Sodium 100 mg 100 mg BID NGT Last administered on 02/07/17 08:41; Admin Dose 100 MG; Start 02/05/17 at 09:00 Piperacillin Sod/ Tazobactam Sod (Zosyn 3.375gm/ 50 ml (Pmx)) 50 ml @ 200 mls/ hr Q8 IVPB Last administered on 02/07/17 05:05; Admin Dose 200 MLS/HR; Start 02/05/17 at 14:00 Diagnostic Test (Pha) 1 ea 1 ea Q4 XX Last administered on 02/07/17 08:40; Admin Dose 1 EA; Start 02/05/17 at 21:00 Fat Emulsion Intravenous 250 ml @ 10 mls/hr Q24H IV Last administered on 20:10; Admin Dose 10 MLS/HR; Start 02/05/17 at 20:00 Total Parenteral Nutrition 1,000 ml @ 70 mls/hr [id number] IV Last administered on 02/06/17 23:50; Admin Dose 70 MLS/HR; Start 02/05/17 at 20:00 Vancomycin HCl (Vancocin) 250 ml @ 125 mls/hr Q12H IVPB Last administered on 02/06/17 23:50; Admin Dose 125 MLS/HR; Start 02/06/17 at 00:00 Lorazepam 2 mg 2 mg Q2 PRN IV AGITATION Last administered on 02/07/17 00:09; Admin Dose 2 MG; Start 02/06/17 at 12:00 Potassium Chloride 250 ml @ 62.5 mls/hr ONCE ONCE IVPB ; Start 02/07/17 at 09: 30; Stop 02/07/17 at 13:29 Magnesium Sulfate (Magnesium Sulfate 2 Gm/50 ml) 50 ml @ 25 mls/hr ONCE ONCE IVPB Last administered on 02/07/17 10:14; Admin Dose 25 MLS/HR; Start at 09:30; Stop 02/07/17 at 11:29 Assessment/Plan Additional Assessment/Plan IMP: 1. Hypoxemic respiratory failure with alveolar hypoventilation neuromuscular weakness 2. Stage IV ovarian cancer status post hysterectomy with bilateral salpingo- oophorectomy 3. Postop ileus slowly resolving 4. Status post septic shock. 5. Postop persistent leukocytosis 6. Anemia RECS: 1. Obtain NIF and VC to assess resp muscle strength 2. Likely will be able to be extubated 3. Continue postop surgical recommendations 4. Lasix 20 mg IV daily 5. Continue TPN 35 min cc time ANA STILL MD Feb 07, 2017 10:58
[2017-02-07] MEDS: FUROSEMIDE 20 MG INJ IV SCH (12:05)
[2017-02-07] MEDS: VANCOMYCIN 1 GM in NS 250 ML IVPB SCH (12:16)
--- NOTE | 2017-02-07 12:46 | PN ---
Date/Time of Note Date/Time of Note DATE: 02/07/17 TIME: 12:44 Assessment/Plan VTE Prophylaxis VTE Prophylaxis Intervention: SCD's Lines/Catheters IV Catheter Type (from [facility]): Central Line Central line still needed: No Urinary Cath still in place: Yes Reason Cath still needed: urinary retention Assessment/Plan Assessment/Plan 56 yo F with known stage 4 ovarian Ca here admitted for abd pain from malignant ascites sp para 10.19. hospitalization also notable for hydro AUR from her ascites, sp ureteral stenting also sp cytoreduction 10.30. PLAN extubated, sp pressors onc also on consult though patient already has an outpatient oncologist. empiric abx started 11.2 for fever, urine cultures negative, CXR without focal consolidation. respiratory culture with NRF. + blood culture consistent with contaminant stop vanc, consider stopping/de-escalating zosyn tomorrow TPN given ileus AUR: cont sen. critical care time: 30 minutes Subjective 24 Hr Interval Summary Free Text/Dictation off sedation and tracks Exam/Review of Systems Vital Signs Vitals Vital Signs Date Time Temp Pulse Resp B/P Pulse Ox O2 Delivery O2 Flow Rate FiO2 02/07/17 11:20 Nasal Cannula 2.0 02/07/17 11:00 117 27 100 02/07/17 10:00 136/78 02/07/17 08:00 30 02/07/17 07:30 100.0 Intake and Output 02/06/17 02/06/17 02/07/17 15:00 23:00 07:00 Intake Total 1032.5 ml 860 ml 750 ml Output Total 525 ml 445 ml 760 ml Balance 507.5 ml 415 ml -10 ml Exam nad, follows commands intermittently +NG in place lungs clear abd mildly firm, drains noted no rashes Results Result Diagram: 02/07/17 0450 02/07/17 0450 Results 24 hrs Laboratory Tests Test 02/06/17 15:30 02/06/17 16:13 02/06/17 20:12 02/07/17 00:28 Blood Gas Specimen Source Blood arterial Arterial Blood Date Drawn 02/06/2017 3:20:03 PM Arterial Blood pH (Temp corrected) 7.456 H Arterial Blood pCO2 (Temp correct) 28.6 L Arterial Blood pO2 (Temp corrected) 124.6 H Arterial Blood HCO3 19.7 L Arterial Blood Base Excess -3.5 L Arterial Blood Oxygen Saturation 98.5 H Bi Test ACCEPTAB Arterial Blood Gas Puncture Site Right Radial Arterial Blood Carboxyhemoglobin 0.3 Arterial Blood Methemoglobin 0.4 Blood Gas A-a O2 Differential 55.7 H Oxyhemoglobin Percent 97.8 Total Hemoglobin 8.7 L Blood Gas Temperature 37.0 Blood Gas Actual Respiration Rate 21 Blood Gas Modality VENT - CPAP FiO2 30.0 Blood Gas Low PEEP Setting 5.0 Blood Gas Pressure Support 10 Blood Gas Notified Whom JLD Blood Gas Notified Time 02/06/2017 3:28:52 PM Bedside Glucose 135 121 136 Test 02/07/17 04:50 02/07/17 05:07 02/07/17 08:39 02/07/17 10:00 White Blood Count 13.3 #H Red Blood Count 2.74 L Hemoglobin 7.7 L Hematocrit 24.8 L Mean Corpuscular Volume 90.5 Mean Corpuscular Hemoglobin 28.1 L Mean Corpuscular Hemoglobin Concent 31.0 L Red Cell Distribution Width 19.0 H Platelet Count 239 # Mean Platelet Volume 12.8 H Neutrophils % 86.3 H Lymphocytes % 3.6 L Monocytes % 9.2 Eosinophils % 0.2 Basophils % 0.0 Nucleated Red Blood Cells % 1.3 H Neutrophils # 11.5 H Lymphocytes # 0.5 L Monocytes # 1.2 H Eosinophils # 0.0 Basophils # 0.0 Nucleated Red Blood Cells # 0.2 H Sodium Level 144 Potassium Level 3.2 L Chloride Level 111 H Carbon Dioxide Level 26 Anion Gap 10 Blood Urea Nitrogen 15 Creatinine 0.51 Glucose Level 118 Calcium Level 8.1 L Phosphorus Level 2.2 L Magnesium Level 1.6 L Bedside Glucose 124 140 Blood Gas Specimen Source Blood arterial Arterial Blood Date Drawn 02/07/2017 10:40:00 AM Arterial Blood pH (Temp corrected) 7.487 H Arterial Blood pCO2 (Temp correct) 32.3 L Arterial Blood pO2 (Temp corrected) 127.4 H Arterial Blood HCO3 23.9 Arterial Blood Base Excess 0.7 Arterial Blood Oxygen Saturation 98.3 H Bi Test ACCEPTAB Arterial Blood Gas Puncture Site Right Radial Arterial Blood Carboxyhemoglobin 0.3 Arterial Blood Methemoglobin 0.4 Blood Gas A-a O2 Differential 48.6 H Oxyhemoglobin Percent 97.6 Total Hemoglobin 8.0 L Blood Gas Temperature 37.0 Blood Gas Actual Respiration Rate 24 Blood Gas Modality VENT - CPAP FiO2 30.0 Blood Gas Low PEEP Setting 5.0 Blood Gas Pressure Support 10 Blood Gas Notified Whom DT Blood Gas Notified Time 02/07/2017 10:50:00 AM Medications Medications Current Medications Ondansetron HCl (Zofran Tab) 4 mg Q6H PRN PO NAUSEA AND/OR VOMITING; Start at 16:00 Acetaminophen (Tylenol Tab) 650 mg Q6H PRN PO PAIN LEVEL 1-3 OR FEVER Last administered on 02/06/17 23:54; Admin Dose 650 MG; Start 01/22/17 at 16:00 Docusate Sodium (Colace) 100 mg Q12H PRN PO CONSTIPATION; Start 01/22/17 at 16 :00 Magnesium Hydroxide (Milk Of Mag) 30 ml DAILY PRN PO CONSTIPATION Last administered on 01/31/17 07:38; Admin Dose 30 ML; Start 01/22/17 at 16:00 Bisacodyl (Dulcolax) 5 mg DAILY PRN PO CONSTIPATION Last administered on 05:07; Admin Dose 5 MG; Start 01/22/17 at 16:00 Polyethylene Glycol (Miralax) 17 gm DAILY PO Last administered on 02/07/17 08: 41; Admin Dose 17 GM; Start 01/26/17 at 15:30 Sodium Biphosphate/ Sodium Phosphate (Fleet Enema) 133 ml DAILY PRN [place] CONSTIPATION Last administered on 01/27/17 06:17; Admin Dose 133 ML; Start at 20:30 Tolterodine Tartrate (Detrol La) 4 mg DAILY PO Last administered on 02/06/17 08:50; Admin Dose 4 MG; Start 01/27/17 at 15:30 Morphine Sulfate 2 mg 2 mg Q2H PRN IV PAIN LEVEL 7-10 Last administered on 02/07 11:46; Admin Dose 2 MG; Start 01/28/17 at 14:00 Ondansetron HCl/ Dextrose (Zofran Inj/D5W) 54 ml @ 108 mls/hr Q6H PRN IV NAUSEA AND/OR VOMITING; Start 01/31/17 at 12:00 Hydromorphone HCl (Dilaudid) 1 mg Q2H PRN IV PAIN LEVEL 6-10 Last administered on 02/02/17 21:43; Admin Dose 1 MG; Start 02/02/17 at 11:30 Diphenhydramine HCl 25 mg 25 mg Q6H PRN IV ITCHING Last administered on 23:55; Admin Dose 25 MG; Start 02/02/17 at 11:30 Epinephrine 4 mg/ Dextrose 250 ml @ 3.75 mls/hr PROTOCOL IV ; Start 02/02/17 at 18:00 Vasopressin 60 unit/Dextrose 60 ml @ 0 mls/hr Q12H IV ; Start 02/02/17 at 18:30 Norepinephrine 32 mg/Dextrose 250 ml @ 0.46 mls/hr TITRATE IV ; Start at 18:30 Phenylephrine HCl 160 mg/Dextrose 500 ml @ 18.75 mls/ hr TITRATE IV Last administered on 02/05/17 10:15; Admin Dose 22.5 MLS/HR; Start 02/02/17 at 18: 30 Propofol 100 ml @ 1.986 mls/ hr Q12H IV Last administered on 02/03/17 20:38 ; Admin Dose 7.944 MLS/HR; Start 02/03/17 at 09:00 Midazolam HCl (Versed) 50 ml @ 1 mls/hr TITRATE IV Last administered on 23:10; Admin Dose 2 MLS/HR; Start 02/04/17 at 00:30 Acetaminophen 650 mg 650 mg Q4H PRN GTB PAIN AND OR ELEVATED TEMP Last administered on 02/06/17 16:19; Admin Dose 650 MG; Start 02/04/17 at 08:30 Fentanyl (Sublimaze) 100 ml @ 2.5 mls/hr TITRATE IV Last administered on 08:15; Admin Dose 7.5 MLS/HR; Start 02/04/17 at 10:30 Docusate Sodium 100 mg 100 mg BID NGT Last administered on 02/07/17 08:41; Admin Dose 100 MG; Start 02/05/17 at 09:00 Piperacillin Sod/ Tazobactam Sod (Zosyn 3.375gm/ 50 ml (Pmx)) 50 ml @ 200 mls/ hr Q8 IVPB Last administered on 02/07/17 05:05; Admin Dose 200 MLS/HR; Start 02/05/17 at 14:00 Diagnostic Test (Pha) 1 ea 1 ea Q4 XX Last administered on 02/07/17 08:40; Admin Dose 1 EA; Start 02/05/17 at 21:00 Fat Emulsion Intravenous 250 ml @ 10 mls/hr Q24H IV Last administered on 20:10; Admin Dose 10 MLS/HR; Start 02/05/17 at 20:00 Total Parenteral Nutrition 1,000 ml @ 70 mls/hr [id number] IV Last administered on 02/06/17 23:50; Admin Dose 70 MLS/HR; Start 02/05/17 at 20:00 Vancomycin HCl (Vancocin) 250 ml @ 125 mls/hr Q12H IVPB Last administered on 02/07/17 12:16; Admin Dose 125 MLS/HR; Start 02/06/17 at 00:00 Lorazepam 2 mg 2 mg Q2 PRN IV AGITATION Last administered on 02/07/17 00:09; Admin Dose 2 MG; Start 02/06/17 at 12:00 Potassium Chloride (KCl 40 MEQ/250 ML NS) 250 ml @ 62.5 mls/hr ONCE ONCE IVPB Last administered on 02/07/17 12:12; Admin Dose 62.5 MLS/HR; Start 02/07/17 at 09:30; Stop 02/07/17 at 13:29 Furosemide (Lasix) 20 mg DAILY IV Last administered on 02/07/17 12:05; Admin Dose 20 MG; Start 02/07/17 at 11:00 Miscellaneous Information (*Rx Drug Level Order Reminder*) VANCOMYCIN TROUGH AT 2300 ONCE ONCE XX ; Start 02/07/17 at 23:00; Stop 02/07/17 at 23:01 DAYANARA BROWN MD Feb 07, 2017 12:46
[2017-02-07] MEDS ORDERED: SODIUM PHOSPHATE 40 MEQ in SOD CHLORIDE 0.9% 250 ML IVPB ONE (13:00)
[2017-02-07] MEDS ORDERED: SODIUM PHOSPHATE 30 MMOL in SOD CHLORIDE 0.9% 250 ML IVPB ONE (13:30)
[2017-02-07] MEDS ORDERED: POTASSIUM PHOSPHATE 20 MM in SOD CHLORIDE 0.9% 250 ML IV ONE (14:00)
[2017-02-07] MEDS: TPN 1,000 ML IV SCH (14:54)
[2017-02-07] MEDS ORDERED: VANCOMYCIN IV PER PHARMACY XX SCH (15:00)
--- NOTE | 2017-02-07 15:05 | PN ---
Date/Time of Note Date/Time of Note DATE: 02/07/17 TIME: 14:59 Assessment/Plan VTE Prophylaxis VTE Prophylaxis Intervention: LMWH Lines/Catheters IV Catheter Type (from Nrsg): Central Line Central line still needed: Yes Urinary Cath still in place: Yes Reason Cath still needed: urinary retention Assessment/Plan Chief Complaint/Hosp Course Stage IIIc - IV ovarian cancer Problems: Assessment/Plan A- improved in that extubated but requires Vanco due to risk and possible culture Advise eval left leg r/o DVT; discussed P- as the Vanco was not discussed with me must reorder given risk and VS and findings at surg Doppler Subjective 24 Hr Interval Summary Free Text/Dictation Marginally responsive and pain addressed. Exam/Review of Systems Vital Signs Vitals Vital Signs Date Time Temp Pulse Resp B/P Pulse Ox O2 Delivery O2 Flow Rate FiO2 02/07/17 12:00 131 02/07/17 11:20 Nasal Cannula 2.0 02/07/17 11:00 27 100 02/07/17 10:00 136/78 02/07/17 08:00 30 02/07/17 07:30 100.0 Intake and Output 02/06/17 02/06/17 02/07/17 15:00 23:00 07:00 Intake Total 1032.5 ml 860 ml 750 ml Output Total 525 ml 445 ml 760 ml Balance 507.5 ml 415 ml -10 ml Exam Resp- even and more clear CVS NSR Abd- more firm and diff to affirm tender Ext- NT Left edema Results Result Diagram: 02/07/17 0450 02/07/17 0450 Results 24 hrs Laboratory Tests Test 02/06/17 15:30 02/06/17 16:13 02/06/17 20:12 02/07/17 00:28 Blood Gas Specimen Source Blood arterial Arterial Blood Date Drawn 02/06/2017 3:20:03 PM Arterial Blood pH (Temp corrected) 7.456 H Arterial Blood pCO2 (Temp correct) 28.6 L Arterial Blood pO2 (Temp corrected) 124.6 H Arterial Blood HCO3 19.7 L Arterial Blood Base Excess -3.5 L Arterial Blood Oxygen Saturation 98.5 H Bi Test ACCEPTAB Arterial Blood Gas Puncture Site Right Radial Arterial Blood Carboxyhemoglobin 0.3 Arterial Blood Methemoglobin 0.4 Blood Gas A-a O2 Differential 55.7 H Oxyhemoglobin Percent 97.8 Total Hemoglobin 8.7 L Blood Gas Temperature 37.0 Blood Gas Actual Respiration Rate 21 Blood Gas Modality VENT - CPAP FiO2 30.0 Blood Gas Low PEEP Setting 5.0 Blood Gas Pressure Support 10 Blood Gas Notified Whom JLD Blood Gas Notified Time 02/06/2017 3:28:52 PM Bedside Glucose 135 121 136 Test 02/07/17 04:50 02/07/17 05:07 02/07/17 08:39 02/07/17 10:00 White Blood Count 13.3 #H Red Blood Count 2.74 L Hemoglobin 7.7 L Hematocrit 24.8 L Mean Corpuscular Volume 90.5 Mean Corpuscular Hemoglobin 28.1 L Mean Corpuscular Hemoglobin Concent 31.0 L Red Cell Distribution Width 19.0 H Platelet Count 239 # Mean Platelet Volume 12.8 H Neutrophils % 86.3 H Lymphocytes % 3.6 L Monocytes % 9.2 Eosinophils % 0.2 Basophils % 0.0 Nucleated Red Blood Cells % 1.3 H Neutrophils # 11.5 H Lymphocytes # 0.5 L Monocytes # 1.2 H Eosinophils # 0.0 Basophils # 0.0 Nucleated Red Blood Cells # 0.2 H Sodium Level 144 Potassium Level 3.2 L Chloride Level 111 H Carbon Dioxide Level 26 Anion Gap 10 Blood Urea Nitrogen 15 Creatinine 0.51 Glucose Level 118 Calcium Level 8.1 L Phosphorus Level 2.2 L Magnesium Level 1.6 L Bedside Glucose 124 140 Blood Gas Specimen Source Blood arterial Arterial Blood Date Drawn 02/07/2017 10:40:00 AM Arterial Blood pH (Temp corrected) 7.487 H Arterial Blood pCO2 (Temp correct) 32.3 L Arterial Blood pO2 (Temp corrected) 127.4 H Arterial Blood HCO3 23.9 Arterial Blood Base Excess 0.7 Arterial Blood Oxygen Saturation 98.3 H Bi Test ACCEPTAB Arterial Blood Gas Puncture Site Right Radial Arterial Blood Carboxyhemoglobin 0.3 Arterial Blood Methemoglobin 0.4 Blood Gas A-a O2 Differential 48.6 H Oxyhemoglobin Percent 97.6 Total Hemoglobin 8.0 L Blood Gas Temperature 37.0 Blood Gas Actual Respiration Rate 24 Blood Gas Modality VENT - CPAP FiO2 30.0 Blood Gas Low PEEP Setting 5.0 Blood Gas Pressure Support 10 Blood Gas Notified Whom DT Blood Gas Notified Time 02/07/2017 10:50:00 AM Medications Medications Current Medications Ondansetron HCl (Zofran Tab) 4 mg Q6H PRN PO NAUSEA AND/OR VOMITING; Start at 16:00 Acetaminophen (Tylenol Tab) 650 mg Q6H PRN PO PAIN LEVEL 1-3 OR FEVER Last administered on 02/06/17 23:54; Admin Dose 650 MG; Start 01/22/17 at 16:00 Docusate Sodium (Colace) 100 mg Q12H PRN PO CONSTIPATION; Start 01/22/17 at 16 :00 Magnesium Hydroxide (Milk Of Mag) 30 ml DAILY PRN PO CONSTIPATION Last administered on 01/31/17 07:38; Admin Dose 30 ML; Start 01/22/17 at 16:00 Bisacodyl (Dulcolax) 5 mg DAILY PRN PO CONSTIPATION Last administered on 05:07; Admin Dose 5 MG; Start 01/22/17 at 16:00 Polyethylene Glycol (Miralax) 17 gm DAILY PO Last administered on 02/07/17 08: 41; Admin Dose 17 GM; Start 01/26/17 at 15:30 Sodium Biphosphate/ Sodium Phosphate (Fleet Enema) 133 ml DAILY PRN [place] CONSTIPATION Last administered on 01/27/17 06:17; Admin Dose 133 ML; Start at 20:30 Tolterodine Tartrate (Detrol La) 4 mg DAILY PO Last administered on 02/06/17 08:50; Admin Dose 4 MG; Start 01/27/17 at 15:30 Morphine Sulfate 2 mg 2 mg Q2H PRN IV PAIN LEVEL 7-10 Last administered on 02/07 11:46; Admin Dose 2 MG; Start 01/28/17 at 14:00 Ondansetron HCl/ Dextrose (Zofran Inj/D5W) 54 ml @ 108 mls/hr Q6H PRN IV NAUSEA AND/OR VOMITING; Start 01/31/17 at 12:00 Hydromorphone HCl (Dilaudid) 1 mg Q2H PRN IV PAIN LEVEL 6-10 Last administered on 02/02/17 21:43; Admin Dose 1 MG; Start 02/02/17 at 11:30 Diphenhydramine HCl 25 mg 25 mg Q6H PRN IV ITCHING Last administered on 23:55; Admin Dose 25 MG; Start 02/02/17 at 11:30 Vasopressin 60 unit/Dextrose 60 ml @ 0 mls/hr Q12H IV ; Start 02/02/17 at 18:30 Propofol 100 ml @ 1.986 mls/ hr Q12H IV Last administered on 02/03/17 20:38 ; Admin Dose 7.944 MLS/HR; Start 02/03/17 at 09:00 Midazolam HCl (Versed) 50 ml @ 1 mls/hr TITRATE IV Last administered on 23:10; Admin Dose 2 MLS/HR; Start 02/04/17 at 00:30 Acetaminophen (Tylenol Liquid) 650 mg Q4H PRN GTB PAIN AND OR ELEVATED TEMP Last administered on 02/06/17 16:19; Admin Dose 650 MG; Start 02/04/17 at 08:30 Docusate Sodium 100 mg 100 mg BID NGT Last administered on 02/07/17 08:41; Admin Dose 100 MG; Start 02/05/17 at 09:00 Piperacillin Sod/ Tazobactam Sod 50 ml @ 200 mls/hr Q8 IVPB Last administered on 02/07/17 14:39; Admin Dose 200 MLS/HR; Start 02/05/17 at 14:00 Fat Emulsion Intravenous 250 ml @ 10 mls/hr Q24H IV Last administered on 20:10; Admin Dose 10 MLS/HR; Start 02/05/17 at 20:00 Total Parenteral Nutrition (Tpn) 1,000 ml @ 70 mls/hr [id number] IV Last administered on 02/06/17 23:50; Admin Dose 70 MLS/HR; Start 02/05/17 at 20:00 Lorazepam (Ativan) 2 mg Q2 PRN IV AGITATION Last administered on 02/07/17 00: 09; Admin Dose 2 MG; Start 02/06/17 at 12:00 Furosemide 20 mg 20 mg DAILY IV Last administered on 02/07/17 12:05; Admin Dose 20 MG; Start 02/07/17 at 11:00 Potassium Phosphate/Sodium Chloride (K Phos (Mm)/NS) 256.6667 ml @ 85.556 m... ONCE ONCE IV Last administered on 11/4/17at 14:45; Admin Dose 85.556 MLS/HR; Start 02/07/17 at 14:00; Stop 02/07/17 at 16:59 Diagnostic Test (Pha) (Accu-Chek) 1 ea Q8 XX ; Start 02/07/17 at 22:00 RAUL EUCEDA MD Feb 07, 2017 15:05
--- NOTE | 2017-02-07 18:50 | PN ---
DATE: 02/07/2017 INFECTIOUS DISEASE PROGRESS NOTE SUBJECTIVE: Patient was extubated this a.m. She is lethargic, tachycardic, slightly tachypneic, bu t in no distress. VITAL SIGNS: Temperature T-max yesterday 101.8, T current 100, pulse 131, respirations 27, blood pr essure 136/78, saturation 100 on 2 liters. LABORATORY DATA: WBC 13.3, H and H 7.7 and 24.8, platelets 239, neutrophils 86.3, BUN 15, creatinin e 0.51. MICROBIOLOGY: Blood culture growing coag-negative staph species on 02/04. Urine culture negative s alfredo 02/04. DIAGNOSTICS: Chest x-ray this morning revealed stable chest radiography. INDWELLINGS: NG tube, Cullen catheter. Right IJ triple lumen catheter, abdominal JPs. ANTIMICROBIALS: Patient is on IV vancomycin and Zosyn. PHYSICAL EXAMINATION: GENERAL: This is a well-developed, chronically ill-appearing, middle-aged woman who is awake, in no distress. HEENT: Atraumatic, normocephalic. Sclerae anicteric. Buccal mucosa dry. NECK: Supple. CHEST: Rise is symmetrical. Breath sounds diminished at bases. HEART: S1, S2. ABDOMEN: Soft. Bowel sounds present. EXTREMITIES: Without cyanosis. Bilateral trace edema. ASSESSMENT AND PLAN: 1. Sepsis, etiology unclear, status post shock, improving on current antibiotics. 2. Coagulase-negative staph bacteremia, 1/2 sets from the blood cultures, could be contaminant; how ever, possibility of line sepsis not ruled out. 3. Respiratory failure, status post extubated. 4. Metastatic ovarian CA, status post ureteral dissection, omentectomy and with splenectomy and cyt oreduction on 02/02/2017. 5. Bilateral hydronephrosis, status post JJ stent insertion on 01/24/2017. 6. Anemia. PLAN: Patient is stable post-extubation. We will continue her on current coverage with antibiotics . Repeat blood cultures from triple lumen catheter, continue anti-aspiration measures. Follow anton mmendations of consultants. Dictated By: BREONNA SEALS/SEBASTIAN Conf#: [id number] DID#: [id number]
--- NOTE | 2017-02-07 20:11 | RADRPT ---
PROCEDURE: US Lower extremity Venous. CLINICAL INDICATION: Left leg swelling. TECHNIQUE: Multiple sonographic images of the left lower extremity deep venous system was obtained utilizing whipple scale, color-flow, compressive sonography and doppler imaging with augmentation. COMPARISON: None. FINDINGS: There is normal compressibility, phasicity and Doppler flow within the left common femoral, femoral and popliteal veins. Visualized portions of the calf veins are patent. IMPRESSION: No sonographic evidence for deep venous thrombosis in the left leg. RPTAT:AAJJ Physician Mayda Date Time Electronically viewed and signed by Therese Kimball Physician on 02/07/2017 20:10 /
[2017-02-07] MEDS: FAT EMULSION 20% 250 ML IV SCH (20:31)
--- NOTE | 2017-02-07 23:49 | CONS ---
Date/Time of Note Date/Time of Note DATE: 02/07/17 TIME: 23:49 Assessment/Plan Assessment/Plan Chief Complaint/Hosp Course ADVANCED OVARIAN CANCER WITH MALIGNANT ASCITES AND PERITONEAL carcinomatosis Large conglomerate pelvic mass inseparable from the uterus, sigmoid colon and rectum containing clumps of calcification suspicious for calcified fibroids and containing cystic areas. Large amount of free intraperitoneal fluid measuring 25 HU with caking of the omentum compatible with carcinomatosis. Centralization of bowel without evidence of bowel obstruction. Moderately severe right hydronephrosis and hydroureter to the level of the pelvic mass. There is moderate left pelvocaliectasis without ureteral dilatation. The bladder is quite distended with urine. POST cystoscopy and insertion of bilateral JJ stents CT CHEST - EDOUARD, EXCEPT SMALL L PLEURAL EFFUSION CA 125- 337 POST debulking surgery PATH- [id number] High grade serous carcinoma. PLAN- CHEMO WHEN CLEARED BY GYNEONC ANEMIA, MICROCYTOSIS COMPLEX ANEMIA W-UP= + COMPONENT ACD DROP H/H POSTOP SERIAL H/H PRBC NEEDED PER STANDING ORDERS D/W RN LEUKOCYTOSIS REACTIVE, PARTIALLY 2 TO Splenectomy malignant ascites sp para 10.19. hydro AUR from ascites, sp ureteral stenting. Problems: Consultation Date/Type/Reason Admit Date/Time Jan 22, 2017 at 14:12 Initial Consult Date 01/27/17 Type of Consultation: [facility] Referring Provider: RAUL EUCEDA MD 24 HR Interval Summary Free Text/Dictation all noted no new events path - reviewed Exam/Review of Systems Vital Signs Vitals Vital Signs Date Time Temp Pulse Resp B/P Pulse Ox O2 Delivery O2 Flow Rate FiO2 02/07/17 22:00 112 31 118/71 99 Nasal Cannula 02/07/17 20:00 98.8 02/07/17 18:55 3.0 02/07/17 08:00 30 Intake and Output 02/06/17 02/06/17 02/07/17 15:00 23:00 07:00 Intake Total 1032.5 ml 860 ml 750 ml Output Total 525 ml 445 ml 760 ml Balance 507.5 ml 415 ml -10 ml Exam HEENT exam; supple neck, no JVD. No lymphadenopathy. Midline trachea. No thyromegaly. Orally intubated. Pupils are small bilaterally. Patient has fair dentition. Chest exam; clear to auscultation. S1-S2 audible, no murmurs. Regular rhythm. Tachycardic. Abdomen exam; soft, bowel sounds are absent. Midline dressing in place. Abdominal drains are in place. Extremity exam; no peripheral edema. Pulses 1+ bilaterally. WIRE INSERTER exam; patient is sedated. Results Result Diagram: 02/07/17 0450 02/07/17 0450 Results 24 hrs Laboratory Tests Test 02/07/17 00:28 02/07/17 04:50 02/07/17 05:07 02/07/17 08:39 Bedside Glucose 136 124 140 White Blood Count 13.3 #H Red Blood Count 2.74 L Hemoglobin 7.7 L Hematocrit 24.8 L Mean Corpuscular Volume 90.5 Mean Corpuscular Hemoglobin 28.1 L Mean Corpuscular Hemoglobin Concent 31.0 L Red Cell Distribution Width 19.0 H Platelet Count 239 # Mean Platelet Volume 12.8 H Neutrophils % 86.3 H Lymphocytes % 3.6 L Monocytes % 9.2 Eosinophils % 0.2 Basophils % 0.0 Nucleated Red Blood Cells % 1.3 H Neutrophils # 11.5 H Lymphocytes # 0.5 L Monocytes # 1.2 H Eosinophils # 0.0 Basophils # 0.0 Nucleated Red Blood Cells # 0.2 H Sodium Level 144 Potassium Level 3.2 L Chloride Level 111 H Carbon Dioxide Level 26 Anion Gap 10 Blood Urea Nitrogen 15 Creatinine 0.51 Glucose Level 118 Calcium Level 8.1 L Phosphorus Level 2.2 L Magnesium Level 1.6 L Test 02/07/17 10:00 02/07/17 20:46 Blood Gas Specimen Source Blood arterial Arterial Blood Date Drawn 02/07/2017 10:40:00 AM Arterial Blood pH (Temp corrected) 7.487 H Arterial Blood pCO2 (Temp correct) 32.3 L Arterial Blood pO2 (Temp corrected) 127.4 H Arterial Blood HCO3 23.9 Arterial Blood Base Excess 0.7 Arterial Blood Oxygen Saturation 98.3 H Bi Test ACCEPTAB Arterial Blood Gas Puncture Site Right Radial Arterial Blood Carboxyhemoglobin 0.3 Arterial Blood Methemoglobin 0.4 Blood Gas A-a O2 Differential 48.6 H Oxyhemoglobin Percent 97.6 Total Hemoglobin 8.0 L Blood Gas Temperature 37.0 Blood Gas Actual Respiration Rate 24 Blood Gas Modality VENT - CPAP FiO2 30.0 Blood Gas Low PEEP Setting 5.0 Blood Gas Pressure Support 10 Blood Gas Notified Whom DT Blood Gas Notified Time 02/07/2017 10:50:00 AM Bedside Glucose 114 Medications Medications Current Medications Ondansetron HCl (Zofran Tab) 4 mg Q6H PRN PO NAUSEA AND/OR VOMITING; Start at 16:00 Acetaminophen (Tylenol Tab) 650 mg Q6H PRN PO PAIN LEVEL 1-3 OR FEVER Last administered on 02/06/17 23:54; Admin Dose 650 MG; Start 01/22/17 at 16:00 Docusate Sodium (Colace) 100 mg Q12H PRN PO CONSTIPATION; Start 01/22/17 at 16 :00 Magnesium Hydroxide (Milk Of Mag) 30 ml DAILY PRN PO CONSTIPATION Last administered on 01/31/17 07:38; Admin Dose 30 ML; Start 01/22/17 at 16:00 Bisacodyl (Dulcolax) 5 mg DAILY PRN PO CONSTIPATION Last administered on 05:07; Admin Dose 5 MG; Start 01/22/17 at 16:00 Polyethylene Glycol (Miralax) 17 gm DAILY PO Last administered on 02/07/17 08: 41; Admin Dose 17 GM; Start 01/26/17 at 15:30 Sodium Biphosphate/ Sodium Phosphate (Fleet Enema) 133 ml DAILY PRN DC CONSTIPATION Last administered on 01/27/17 06:17; Admin Dose 133 ML; Start at 20:30 Tolterodine Tartrate (Detrol La) 4 mg DAILY PO Last administered on 02/06/17 08:50; Admin Dose 4 MG; Start 01/27/17 at 15:30 Morphine Sulfate 2 mg 2 mg Q2H PRN IV PAIN LEVEL 7-10 Last administered on 02/07 20:37; Admin Dose 2 MG; Start 01/28/17 at 14:00 Ondansetron HCl/ Dextrose (Zofran Inj/D5W) 54 ml @ 108 mls/hr Q6H PRN IV NAUSEA AND/OR VOMITING; Start 01/31/17 at 12:00 Hydromorphone HCl (Dilaudid) 1 mg Q2H PRN IV PAIN LEVEL 6-10 Last administered on 02/02/17 21:43; Admin Dose 1 MG; Start 02/02/17 at 11:30 Diphenhydramine HCl 25 mg 25 mg Q6H PRN IV ITCHING Last administered on 23:55; Admin Dose 25 MG; Start 02/02/17 at 11:30 Vasopressin 60 unit/Dextrose 60 ml @ 0 mls/hr Q12H IV ; Start 02/02/17 at 18:30 Propofol 100 ml @ 1.986 mls/ hr Q12H IV Last administered on 02/03/17 20:38 ; Admin Dose 7.944 MLS/HR; Start 02/03/17 at 09:00 Midazolam HCl (Versed) 50 ml @ 1 mls/hr TITRATE IV Last administered on 23:10; Admin Dose 2 MLS/HR; Start 02/04/17 at 00:30 Acetaminophen (Tylenol Liquid) 650 mg Q4H PRN GTB PAIN AND OR ELEVATED TEMP Last administered on 02/06/17 16:19; Admin Dose 650 MG; Start 02/04/17 at 08:30 Docusate Sodium 100 mg 100 mg BID NGT Last administered on 02/07/17 20:31; Admin Dose 100 MG; Start 02/05/17 at 09:00 Piperacillin Sod/ Tazobactam Sod 50 ml @ 200 mls/hr Q8 IVPB Last administered on 02/07/17 21:17; Admin Dose 200 MLS/HR; Start 02/05/17 at 14:00 Fat Emulsion Intravenous 250 ml @ 10 mls/hr Q24H IV Last administered on 20:31; Admin Dose 10 MLS/HR; Start 02/05/17 at 20:00 Total Parenteral Nutrition 1,000 ml @ 70 mls/hr [id number] IV Last administered on 02/06/17 23:50; Admin Dose 70 MLS/HR; Start 02/05/17 at 20:00 Vancomycin HCl (Vancocin) 250 ml @ 125 mls/hr Q12H IVPB Last administered on 02/07/17 12:16; Admin Dose 125 MLS/HR; Start 02/06/17 at 00:00 Lorazepam (Ativan) 2 mg Q2 PRN IV AGITATION Last administered on 02/07/17 20: 23; Admin Dose 2 MG; Start 02/06/17 at 12:00 Furosemide (Lasix) 20 mg DAILY IV Last administered on 02/07/17t 12:05; Admin Dose 20 MG; Start 02/07/17 at 11:00 Diagnostic Test (Pha) (Accu-Chek) 1 ea Q8 XX ; Start 02/07/17 at 22:00 Procedures Procedures [facility] a [facility] [address] [place] [address] ; Lab No: [id number] Date: 02/02/2017 FROZEN SECTION EXAM AND INTRAOPERATIVE TOUCH IMPRINTS WITH IMMEDIATE EXAMINATION : -A-Metastatic carcinoma with morphologic features compatible with serous carcinoma of ovarian or peritoneal primary. (FS and TP)/WS (02/02/17; 1:25 p.m.) SPECIMEN: A-Omental tumor B-Falciform ligament C-Small bowel D-Lesser omentum E-Liver F-Transverse colon G-Right tube and ovary possible uterine fundus H-Left adnexa I-Left sidewall J-Right pelvis sidewall K-Omentum L-Right diaphragm M-Spleen with omentum CLINICAL: Ovarian cancer GROSS EXAMINATION: A-Received fresh for frozen section is a discoid-shaped, rubbery, soft fragment of whipple-pink, granular surfaced tumor tissue with an adhered small piece of pale yellow, soft adipose tissue. The specimen measures 2.3 x 1.6 x 0.6 cm. The discoid tumor tissue measures 1.6 cm in diameter and 0.6 cm thick. Touch imprint from the tumor is made and stained with Diff- Quik stain and a goodwill representative piece is frozen and subsequently submitted for permanent in cassette A1 and the remainder of the specimen is submitted in cassette A2. B-Received in formalin is an irregularly-shaped segment of nodular whipple-pink, rubbery tumor tissue that weighs 5.2 grams and measures 3.5 x 2.4 x 1.5 cm. Sectioning reveals friable whipple- carvajal surface. Representatively sampled in cassette B. C-Received in formalin is an ovoid, granular surface segment of pink-whipple tumor tissue that measures 2.2 x 1.5 x 1.0 cm and weighs 2.3 grams. Section reveals friable pink- whipple cut surface. Representatively sampled in cassette C. D-Received in formalin are two segments of rubbery soft to friable whipple-pink, focally hemorrhagic tumor tissue and a small amount of adipose tissue that measure 0.8 x 0.6 x 0.3 cm and 1.0 x 1.0 x 0.4 cm. Sectioning reveals a lobular, somewhat friable whipple-pink cut surface. Totally submitted in cassette D. E-Received in formalin are five irregularly-shaped segments of friable carvajal-pink and carvajal-brown, focally hemorrhagic tumor tissue with adhered small amount of fibroadipose tissue that weigh 10.7 grams. Sectioning reveals carvajal-pink to carvajal-brown cut surface and no hepatic parenchyma is grossly identified. Representatively sampled in two cassettes, E1 and E2. F-Received in formalin is an irregularly-shaped elongated segment of carvajal-pink, granular surface tumor and adhered a small amount of fibroadipose tissue studded with tumor measuring 5.4 x 1.5 x 0.8 cm. Section reveals a whipple-carvajal, lobular cut surface. Representatively sampled in three cassettes. G-Received in formalin are two irregularly-shaped segments of pink-whipple, focally hemorrhagic brown, granular surface tumor tissue that weigh 182 grams and measure 4.0 x 3.0 x 1.5 cm and 13.8 x 7.5 x 4.4 cm. The surface on the larger segment is partially covered with carvajal smooth capsule- like tissue and a small amount of fibroadipose tissue that measure 7.0 x 3.5 cm. Remaining surfaces are granular, whipple-pink. Extensive sectioning Sectioning reveals a rubbery soft to friable tumor tissue with focal necrosis and hemorrhage. No uterus, ovaries or fallopian tubes are grossly seen. Representatively sampled in 12 cassettes, G1-G12. H-Received in formalin are two irregularly-shaped segments of whipple-pink and carvajal- brown rubbery soft tumor tissue that weigh 67 grams and measures 4.5 x 3.2 x 1.4 cm and 12.5 x 5.4 x 2.4 cm and one surface of the larger segment is covered by a glistening, smooth carvajal- white to pink-purple capsule-like tissue and a small amount of adipose tissue. Sections reveal whipple- carvajal and pink-carvajal lobular and somewhat friable tumor tissue. No ovaries or fallopian tubes are grossly identified. Representatively sampled in eleven cassettes, H1-H11. I-Received in formalin fixative is an irregularly-shaped, somewhat cylindrical segment of pink- carvajal tissue that is focally covered by whipple-pink tumor nodules, measuring 1.5 x 1.4 x 0.8 cm. Totally submitted in cassette I. J-Received in formalin is a flat, irregularly-shaped segment of carvajal-pink tissue that is studded by nodules of whipple-pink, granular surface tumor on one surface that measures 8.5 x 5.6 x 0.3 cm. Sectioned and Representatively sampled in cassette J. K-Received in formalin is an irregularly-shaped segment of omentum that is virtually replaced by nodular, whipple-carvajal and pink-carvajal, granular surface, rubbery soft tumor that weighs 1,400 grams and measures 42.5 x 17.0 x 2.5 cm. Section reveals whipple-pink and yellow-carvajal tumor and only small amount of intervening adipose tissue. Representatively sampled in three cassettes, K1-K2. L-Received in formalin is an irregularly-shaped flat rubbery segment of pink- carvajal diaphragm that measures 12.0 x 5.5 x 0.7 cm. One surface is smooth and glistening and the opposite is studded with whipple-pink tumor nodules that measure 0.2 to 0.6 cm in greatest dimension. Representatively sampled in two cassettes, L1 and L2. M-Received in formalin is a spleen with an attached segment of omentum studded with pink-whipple granular surface tumor that weigh 477 grams. The spleen measures 12.5 x 7.0 x 2.5 cm and the attached segment of omentum to splenic hilum measures 18.5 x 12.5 x 4.6 cm. The spleen weighs 141 grams. The surface of the spleen is carvajal-brown, smooth and glistening. and at one edge close to the hilum, multiple tumor nodules are attached to splenic capsule. Cut sections of the these nodules reveal one nodule bulge within the surface parenchyma. Remaining splenic parenchyma is red-brown, soft with no distinct lesions. Representatively sampled in six cassettes with sections of spleen and tumor in cassettes M1, M2 and M3 and sections of the attached omentum with tumor at the hilum are submitted in cassettes M4 to M6. IMMUNOHISTOCHEMICAL STAINS: Immunohistochemical stains are performed on formalin-fixed, paraffin-embedded block (G7) containing section of high grade serous carcinoma. Positive and negative controls, run in tandem, are stained appropriately. The results of the immunohistochemical stains are summarized below: CK7: Positive, strong, diffuse. CK20: Negative. MILKA: Positive, weak. Vimentin: Negative. WT1 (nuclear): Positive, strong, diffuse. PAX8 (nuclear): Negative. p53 (nuclear): Positive, moderate to strong, patchy.. p16: Positive, strong, diffuse.. ER: Positive, strong (65%).. DC: Negative. Ki67: High proliferative index (35%). The results of the above immunohistochemical stains support serous carcinoma. MICROSCOPIC DIAGNOSIS: A-Omental tumor, excision: -- Metastatic high grade serous carcinoma (please see comment). B-Falciform ligament tissue, excision: -- Metastatic high grade serous carcinoma. C-Small bowel tissue, excision: -- Metastatic high grade serous carcinoma. D-Lesser omentum, excision: -- Metastatic high grade serous carcinoma. E-Liver tissue, excision: -- Metastatic high grade serous carcinoma. F-Transverse colon tissue, excision: -- Metastatic high grade serous carcinoma. G-Right tube and ovary possible uterine fundus, excision: -- Residual ovarian parenchyma with extensive high grade serous carcinoma. -- No fallopian tube or uterine tissue is identified. H-Left adnexa, excision: -- Residual ovarian parenchyma with extensive high grade serous carcinoma. -- No fallopian tube tissue is identified. I-Left sidewall tissue, excision: -- Segment of fallopian tube, focally involved with high grade serous carcinoma. J-Right pelvic sidewall tissue, excision: -- High grade serous carcinoma. K-Omentum, excision: -- Metastatic high grade serous carcinoma, extensive. L-Right diaphragm tissue, excision: -- Metastatic high grade serous carcinoma. M-Spleen with omentum, splenectomy: -- Metastatic high grade serous carcinoma, extensively involving omental tissue adhered to the splenic hilum and involving splenic capsule. SURGICAL PATHOLOGY CANCER CASE SUMMARY: SPECIMEN: Right and left adnexal tissue, omentum, spleen and multiple pelvic and intraabdominal biopsies. PROCEDURE: "Total abdominal hysterectomy", omentectomy, splenectomy and multiple pelvic and intraabdominal biopsies. LYMPH NODE SAMPLING: Not performed. SPECIMEN INTEGRITY: Right adnexa, fragmented; only residual ovarian parenchyma is identified and no right fallopian tube or uterine tissue is seen. Left adnexa, fragmented, residual ovarian parenchyma is identified and left fallopian tube tissue is seen. PRIMARY TUMOR SITE: Consistent with ovarian primary (both ovaries are involved with tumor. OVARIAN SURFACE INVOLVEMENT: Present. TUMOR SIZE: Cannot be determined with certainty, however, largest tumor segment in the right ovary measures 13.8 cm in greatest dimension and largest tumor segment in the left ovary measures 12.5 cm in greatest dimension. HISTOLOGIC TYPE AND GRADE: High grade serous carcinoma. RIGHT FALLOPIAN TUBE: Not identified. LEFT FALLOPIAN TUBE: A segment of left fallopian tube is identified and it is involved with tumor EXTENT OF INVOLVEMENT OF OTHER TISSUE/ORGANS: Right fallopian tube: No fallopian tube is identified. Left fallopian tube: Involved. Omentum: Involved. Uterus: No uterine tissue is identified. Peritoneum: Involved. Peritoneal ascitic fluid: Not submitted. Treatment effect: No prior treatment. PATHOLOGIC STAGING (pTNM): pT3c pNx M1. MP/CARMINE/german/danielle Date of Service: 02/02/17; Date Received: 02/02/17 Dictated: 02/05/17; Transcribed: 02/05/17; Sent by Fax: 02/06/17; Reviewed: REBECA COMMENT: The immunoperoxidase stains reported above were developed and its performance characteristics determined by [facility]. It has not been cleared or approved by the U.S. Food and Drug Administration, although such approval is not required for analyte-specific reagents of this type. Melchor Cortez M.D. Pathologist Electronically Signed 02/06/2017 MARY DE LEON M.D. PATIENT: LUISANA JOVEL [facility] AGE/SEX/: 56/F 1960 MR NO: [id number] VISIT: [id number] ROOM NO: [id number] PHYSICIAN: Wanda BROWN, DAYANARA EUCEDA M.D., S. TISSUE EXAMINATION REPORT Wanda YBARRA, RAMIREZ DING MD Feb 07, 2017 23:49
[2017-02-08] VITALS (24 sets, daily range): BP systolic 99–140; BP diastolic 57–91; PULSE 95–122; RESP 17–33
[2017-02-08] MEDS: morphine 2 MG INJ IV PRN ×5 (00:45→17:25)
[2017-02-08] MEDS: VANCOMYCIN 1 GM in NS 250 ML IVPB SCH (00:45)
[2017-02-08 05:11] LABS: BASOPHILS % 0.5 % (0.0-2.0); EOSINOPHILS # 0.6 10^3/ul (0.0-0.5); EOSINOPHILS % 7.7 % (0.0-7.0); HEMATOCRIT 29.5 % (37.0-47.0); HEMOGLOBIN 8.8 g/dl (12.0-16.0); LYMPHOCYTES # 1.9 10^3/ul (0.8-2.9); MEAN CORPUSCULAR HEMOGLOBIN 23.2 pg (29.0-33.0); MEAN CORPUSCULAR HGB CONC 29.8 g/dl (32.0-37.0); MEAN CORPUSCULAR VOLUME 77.8 fl (82.0-101.0); MEAN PLATELET VOLUME 11.2 fl (7.4-10.4); MONOCYTE # 0.6 10^3/ul (0.3-0.9); MONOCYTES % 7.3 % (0.0-11.0); NEUTROPHIL # 4.6 10^3/ul (1.6-7.5); NEUTROPHILS % 59.6 % (39.0-77.0); PLATELET COUNT 317 10^3/UL (140-415); RED BLOOD COUNT 3.79 10^6/ul (4.20-5.40); RED CELL DISTRIBUTION WIDTH 20.8 % (11.5-14.5); WHITE BLOOD COUNT 7.8 10^3/ul (4.8-10.8)
[2017-02-08] MEDS: VASOPRESSIN 60 UNIT in DEXTROSE 5% 57 ML IV SCH (05:18)
[2017-02-08 05:20] LABS: AADO2 Arterial 81.1 mmHg (7.0-24.0); Allen Test ACCEPTAB; Arterial Base Excess 1.8 mmol/L (-3.0-3); Arterial COHb 0.6 % (0.0-3.0); Arterial Fraction of Oxyhgb 96.3 % (93.0-99.0); Arterial HCO3 24.7 mmol/L (22.0-26.0); Arterial Total Hemglobin 3.9 g/dl (12.0-18.0); MODE NASAL CANNULA
[2017-02-08] MEDS: ACCU-CHEK XX SCH ×3 (05:58→22:12)
[2017-02-08] MEDS: PIPER-TAZO 3.375 GM IV (PMX) 50 ML IVPB SCH ×3 (05:59→21:04)
[2017-02-08] MEDS: TPN 1,000 ML IV SCH ×2 (05:59→12:14)
[2017-02-08 06:07] LABS: CALCIUM 8.1 mg/dl (8.4-10.2); CREATININE 0.53 mg/dl (0.44-1.00); POTASSIUM 3.1 mmol/L (3.5-5.1)
[2017-02-08] MEDS: LORAZEPAM 2 MG INJ IV PRN ×3 (06:57→17:19)
[2017-02-08] MEDS: POTASSIUM CHLORIDE 50 ML IVPB PRN ×3 (06:57→09:28)
[2017-02-08] MEDS: DOCUSATE SODIUM 10 MG/ML (10ML CUP) NGT SCH ×2 (08:05→21:04)
[2017-02-08] MEDS: FUROSEMIDE 20 MG INJ IV SCH (08:05)
[2017-02-08] MEDS: POLYETHYLENE GLYCOL 17 GM PACKET PO SCH (08:05)
[2017-02-08] MEDS: TOLTERODINE (SR) 4 MG CAP PO SCH (08:05)
[2017-02-08] MEDS: PROPOFOL 100 ML IV SCH (08:06)
[2017-02-08] MEDS ORDERED: POTASSIUM CHLORIDE 50 ML IVPB ONE (09:30)
--- NOTE | 2017-02-08 10:01 | CONS ---
Date/Time of Note Date/Time of Note DATE: 02/08/17 TIME: 10:00 Assessment/Plan Assessment/Plan Chief Complaint/Hosp Course ID PROGRESS NOTE CURRENT ABX: DAY #5 => Vanco IV + Zosyn 02/08/17 0445 02/08/17 0450 24H INTERVAL SUMMARY * Defervescing over past 5 days -> TMax today 99.9 * Extubated -> 02/07/17 * 02/07/17 IMAGING: * No sonographic evidence for deep venous thrombosis in the left leg. * CXR w/ BLL ATx * MICROBIOLOGY: * BCx 02/06/2017 (-) * BCx 02/04/2017 (+)1/2 bottles COAGULASE NEGATIVE STAPH * Urine 02/04/17 culture negative. * INDWELLINGS: Endotracheal tube, NG tube, bilateral JPs, right IJ triple lumen catheter, Cullen. Physical Exam Physical Exam Constitutional: Lethargic, stable HEENT: At, NC, anicteric,NGT-> low suction w/green bile Neck: Trach midline Respiratory: Clear anterior, diminished BLL Cardiovascular: NSR on tele, radial pulses 2+ bilaterally Gastrointestinal: Soft, bilateral J/P drains Extremities: Warm, no cyanosis, trace edema Neurological: Deferred s/p sedation ID ASSESSMENT 56 yo F admit with 1. Septic shock with fevers > 102.+ on admission, leukocytosis => RESOLVING 2. Bacteremia with blood culture growing gram-positive cocci=> skin contaminant vs opportunistic line * BCx 02/06/2017 (-) * BCx 02/04/2017 (+)1/2 bottles COAGULASE NEGATIVE STAPH 3. Metastatic ovarian cancer, status post ureteral dissection, omentectomy with splenectomy and cytoreduction on 02/02/2017. 4. Status post alpha hemolytic strep urinary tract infection on admission-> * Urine Cx 02/04/17 (-) 6. Bilateral hydronephrosis, status post JJ stent insertion on 01/24/2017. 7. Respiratory failure-> Extubated -> 02/07/17 8. Anemia. ( )MRSA Nares->? ABX ALLERGIES: KNDA CURRENT ABX: DAY # 5 =>Vanco IV + Zosyn ID RECOMMENDATIONS 1. Continue current ABX over the weekend, further recs per clinical course 2. Aspiration precautions 3. Line salvage attempt w/CoNS reasonable, if spikes repeat Temps repeat BCx . Problems: Consultation Date/Type/Reason Admit Date/Time Jan 22, 2017 at 14:12 Initial Consult Date 02/03/17 Type of Consultation: ID Referring Provider: RAUL EUCEDA MD Exam/Review of Systems Vital Signs Vitals Vital Signs Date Time Temp Pulse Resp B/P Pulse Ox O2 Delivery O2 Flow Rate FiO2 02/08/17 08:22 99.9 02/08/17 08:00 105 02/08/17 06:00 29 125/71 100 Nasal Cannula 02/07/17 18:55 3.0 02/07/17 08:00 30 Intake and Output 02/07/17 02/07/17 02/08/17 15:00 23:00 07:00 Intake Total 1037.5 ml 939.60 ml 610 ml Output Total 1835 ml 665 ml 525 ml Balance -797.5 ml 274.60 ml 85 ml Results Result Diagram: 02/08/17 0445 02/08/17 0450 Results 24 hrs Laboratory Tests Test 02/07/17 20:46 02/07/17 22:59 02/08/17 04:45 02/08/17 04:50 Bedside Glucose 114 Vancomycin Level Trough 7.8 L White Blood Count 7.8 # Red Blood Count 3.79 #L Hemoglobin 8.8 L Hematocrit 29.5 L Mean Corpuscular Volume 77.8 L Mean Corpuscular Hemoglobin 23.2 L Mean Corpuscular Hemoglobin Concent 29.8 L Red Cell Distribution Width 20.8 H Platelet Count 317 # Mean Platelet Volume 11.2 H Neutrophils % 59.6 Lymphocytes % 24.0 Monocytes % 7.3 Eosinophils % 7.7 H Basophils % 0.5 Nucleated Red Blood Cells % 0.0 Neutrophils # 4.6 Lymphocytes # 1.9 Monocytes # 0.6 Eosinophils # 0.6 H Basophils # 0.0 Nucleated Red Blood Cells # 0.0 Lactic Acid Level 2.0 Phosphorus Level 3.5 Magnesium Level 2.5 Sodium Level 146 H Potassium Level 3.1 L Chloride Level 112 H Carbon Dioxide Level 27 Anion Gap 10 Blood Urea Nitrogen 13 Creatinine 0.53 Glucose Level 117 Calcium Level 8.1 L Test 02/08/17 05:00 Blood Gas Specimen Source Blood arterial Arterial Blood Date Drawn 02/08/2017 5:00:45 AM Arterial Blood pH (Temp corrected) 7.551 *H Arterial Blood pCO2 (Temp correct) 28.8 L Arterial Blood pO2 (Temp corrected) 99.0 Arterial Blood HCO3 24.7 Arterial Blood Base Excess 1.8 Arterial Blood Oxygen Saturation 97.9 Bi Test ACCEPTAB Arterial Blood Gas Puncture Site Right Radial Arterial Blood Carboxyhemoglobin 0.6 Arterial Blood Methemoglobin 1.0 Blood Gas A-a O2 Differential 81.1 H Oxyhemoglobin Percent 96.3 Total Hemoglobin 3.9 L Blood Gas Temperature 37.0 Blood Gas Actual Respiration Rate 29 Blood Gas Modality NASAL CANNULA FiO2 30.0 Blood Gas Critical Value Read Back TY NILSA BECKER Blood Gas Notified Whom Blood Gas Notified Time 02/08/2017 5:20:10 AM Medications Medications Current Medications Ondansetron HCl (Zofran Tab) 4 mg Q6H PRN PO NAUSEA AND/OR VOMITING; Start at 16:00 Acetaminophen (Tylenol Tab) 650 mg Q6H PRN PO PAIN LEVEL 1-3 OR FEVER Last administered on 02/06/17 23:54; Admin Dose 650 MG; Start 01/22/17 at 16:00 Docusate Sodium (Colace) 100 mg Q12H PRN PO CONSTIPATION; Start 01/22/17 at 16 :00 Magnesium Hydroxide (Milk Of Mag) 30 ml DAILY PRN PO CONSTIPATION Last administered on 01/31/17 07:38; Admin Dose 30 ML; Start 01/22/17 at 16:00 Bisacodyl (Dulcolax) 5 mg DAILY PRN PO CONSTIPATION Last administered on 05:07; Admin Dose 5 MG; Start 01/22/17 at 16:00 Polyethylene Glycol (Miralax) 17 gm DAILY PO Last administered on 02/08/17 08: 05; Admin Dose 17 GM; Start 01/26/17 at 15:30 Sodium Biphosphate/ Sodium Phosphate (Fleet Enema) 133 ml DAILY PRN [place] CONSTIPATION Last administered on 01/27/17 06:17; Admin Dose 133 ML; Start at 20:30 Tolterodine Tartrate (Detrol La) 4 mg DAILY PO Last administered on 02/08/17 08:05; Admin Dose 4 MG; Start 01/27/17 at 15:30 Morphine Sulfate 2 mg 2 mg Q2H PRN IV PAIN LEVEL 7-10 Last administered on 02/08 08:13; Admin Dose 2 MG; Start 01/28/17 at 14:00 Ondansetron HCl/ Dextrose (Zofran Inj/D5W) 54 ml @ 108 mls/hr Q6H PRN IV NAUSEA AND/OR VOMITING; Start 01/31/17 at 12:00 Hydromorphone HCl (Dilaudid) 1 mg Q2H PRN IV PAIN LEVEL 6-10 Last administered on 02/02/17 21:43; Admin Dose 1 MG; Start 02/02/17 at 11:30 Diphenhydramine HCl 25 mg 25 mg Q6H PRN IV ITCHING Last administered on 23:55; Admin Dose 25 MG; Start 02/02/17 at 11:30 Vasopressin 60 unit/Dextrose 60 ml @ 0 mls/hr Q12H IV ; Start 02/02/17 at 18:30 Propofol 100 ml @ 1.986 mls/ hr Q12H IV Last administered on 02/03/17 20:38 ; Admin Dose 7.944 MLS/HR; Start 02/03/17 at 09:00 Midazolam HCl (Versed) 50 ml @ 1 mls/hr TITRATE IV Last administered on 23:10; Admin Dose 2 MLS/HR; Start 02/04/17 at 00:30 Acetaminophen (Tylenol Liquid) 650 mg Q4H PRN GTB PAIN AND OR ELEVATED TEMP Last administered on 02/06/17 16:19; Admin Dose 650 MG; Start 02/04/17 at 08:30 Docusate Sodium 100 mg 100 mg BID NGT Last administered on 02/08/17 08:05; Admin Dose 100 MG; Start 02/05/17 at 09:00 Piperacillin Sod/ Tazobactam Sod 50 ml @ 200 mls/hr Q8 IVPB Last administered on 02/08/17 05:59; Admin Dose 200 MLS/HR; Start 02/05/17 at 14:00 Fat Emulsion Intravenous 250 ml @ 10 mls/hr Q24H IV Last administered on 20:31; Admin Dose 10 MLS/HR; Start 02/05/17 at 20:00 Total Parenteral Nutrition (Tpn) 1,000 ml @ 70 mls/hr [id number] IV Last administered on 02/08/17 05:59; Admin Dose 70 MLS/HR; Start 02/05/17 at 20:00 Lorazepam (Ativan) 2 mg Q2 PRN IV AGITATION Last administered on 02/08/17 06: 57; Admin Dose 2 MG; Start 02/06/17 at 12:00 Furosemide (Lasix) 20 mg DAILY IV Last administered on 02/08/17 08:05; Admin Dose 20 MG; Start 02/07/17 at 11:00 Diagnostic Test (Pha) 1 ea 1 ea Q8 XX ; Start 02/07/17 at 22:00 Vancomycin HCl 1.5 gm/Sodium Chloride 250 ml @ 83.333 mls/ hr Q12H IVPB ; Start 02/08/17 at 12:00 Potassium Chloride (KCl 10 MEQ/50 ML SW) 50 ml @ 50 mls/hr ONCE ONCE IVPB ; Start 02/08/17 at 09:30; Stop 02/08/17 at 10:29 LINDA ESTES NP Feb 08, 2017 10:01
--- NOTE | 2017-02-08 10:47 | CONS ---
Date/Time of Note Date/Time of Note DATE: 02/08/17 TIME: 10:45 Consult Date/Type/Reason Admit Date/Time Jan 22, 2017 at 14:12 Initial Consult Date 02/03/17 Type of Consultation: Pulm/CCM Ordering Provider: RAUL EUCEDA MD Subjective Tolerated extubation. Now appears weak. Objective Vital Signs Date Time Temp Pulse Resp B/P Pulse Ox O2 Delivery O2 Flow Rate FiO2 02/08/17 10:00 106 26 116/70 100 Nasal Cannula 3.0 02/08/17 08:22 99.9 02/07/17 08:00 30 Intake and Output 02/07/17 02/07/17 02/08/17 15:00 23:00 07:00 Intake Total 1037.5 ml 939.60 ml 740 ml Output Total 1835 ml 665 ml 525 ml Balance -797.5 ml 274.60 ml 215 ml Exam HEENT: Neck supple; no JVD; no LAD CVS: RRR, S1 and S2 CHEST: Clear ABD: Soft, NT, + BS EXT: No c/c; + edema Results/Medications Result Diagram: 02/08/17 0445 02/08/17 0450 Results 24 hrs Laboratory Tests Test 02/07/17 20:46 02/07/17 22:59 02/08/17 04:45 02/08/17 04:50 Bedside Glucose 114 Vancomycin Level Trough 7.8 L White Blood Count 7.8 # Red Blood Count 3.79 #L Hemoglobin 8.8 L Hematocrit 29.5 L Mean Corpuscular Volume 77.8 L Mean Corpuscular Hemoglobin 23.2 L Mean Corpuscular Hemoglobin Concent 29.8 L Red Cell Distribution Width 20.8 H Platelet Count 317 # Mean Platelet Volume 11.2 H Neutrophils % 59.6 Lymphocytes % 24.0 Monocytes % 7.3 Eosinophils % 7.7 H Basophils % 0.5 Nucleated Red Blood Cells % 0.0 Neutrophils # 4.6 Lymphocytes # 1.9 Monocytes # 0.6 Eosinophils # 0.6 H Basophils # 0.0 Nucleated Red Blood Cells # 0.0 Lactic Acid Level 2.0 Phosphorus Level 3.5 Magnesium Level 2.5 Sodium Level 146 H Potassium Level 3.1 L Chloride Level 112 H Carbon Dioxide Level 27 Anion Gap 10 Blood Urea Nitrogen 13 Creatinine 0.53 Glucose Level 117 Calcium Level 8.1 L Test 02/08/17 05:00 Blood Gas Specimen Source Blood arterial Arterial Blood Date Drawn 02/08/2017 5:00:45 AM Arterial Blood pH (Temp corrected) 7.551 *H Arterial Blood pCO2 (Temp correct) 28.8 L Arterial Blood pO2 (Temp corrected) 99.0 Arterial Blood HCO3 24.7 Arterial Blood Base Excess 1.8 Arterial Blood Oxygen Saturation 97.9 Bi Test ACCEPTAB Arterial Blood Gas Puncture Site Right Radial Arterial Blood Carboxyhemoglobin 0.6 Arterial Blood Methemoglobin 1.0 Blood Gas A-a O2 Differential 81.1 H Oxyhemoglobin Percent 96.3 Total Hemoglobin 3.9 L Blood Gas Temperature 37.0 Blood Gas Actual Respiration Rate 29 Blood Gas Modality NASAL CANNULA FiO2 30.0 Blood Gas Critical Value Read Back TY NILSA BECKER Blood Gas Notified Whom Blood Gas Notified Time 02/08/2017 5:20:10 AM Medications Current Medications Ondansetron HCl (Zofran Tab) 4 mg Q6H PRN PO NAUSEA AND/OR VOMITING; Start at 16:00 Acetaminophen (Tylenol Tab) 650 mg Q6H PRN PO PAIN LEVEL 1-3 OR FEVER Last administered on 02/06/17 23:54; Admin Dose 650 MG; Start 01/22/17 at 16:00 Docusate Sodium (Colace) 100 mg Q12H PRN PO CONSTIPATION; Start 01/22/17 at 16 :00 Magnesium Hydroxide (Milk Of Mag) 30 ml DAILY PRN PO CONSTIPATION Last administered on 01/31/17 07:38; Admin Dose 30 ML; Start 01/22/17 at 16:00 Bisacodyl (Dulcolax) 5 mg DAILY PRN PO CONSTIPATION Last administered on 05:07; Admin Dose 5 MG; Start 01/22/17 at 16:00 Polyethylene Glycol (Miralax) 17 gm DAILY PO Last administered on 02/08/17 08: 05; Admin Dose 17 GM; Start 01/26/17 at 15:30 Sodium Biphosphate/ Sodium Phosphate (Fleet Enema) 133 ml DAILY PRN [place] CONSTIPATION Last administered on 01/27/17 06:17; Admin Dose 133 ML; Start at 20:30 Tolterodine Tartrate (Detrol La) 4 mg DAILY PO Last administered on 02/08/17 08:05; Admin Dose 4 MG; Start 01/27/17 at 15:30 Morphine Sulfate 2 mg 2 mg Q2H PRN IV PAIN LEVEL 7-10 Last administered on 02/08 08:13; Admin Dose 2 MG; Start 01/28/17 at 14:00 Ondansetron HCl/ Dextrose (Zofran Inj/D5W) 54 ml @ 108 mls/hr Q6H PRN IV NAUSEA AND/OR VOMITING; Start 01/31/17 at 12:00 Hydromorphone HCl (Dilaudid) 1 mg Q2H PRN IV PAIN LEVEL 6-10 Last administered on 02/02/17 21:43; Admin Dose 1 MG; Start 02/02/17 at 11:30 Diphenhydramine HCl 25 mg 25 mg Q6H PRN IV ITCHING Last administered on 23:55; Admin Dose 25 MG; Start 02/02/17 at 11:30 Vasopressin 60 unit/Dextrose 60 ml @ 0 mls/hr Q12H IV ; Start 02/02/17 at 18:30 Propofol 100 ml @ 1.986 mls/ hr Q12H IV Last administered on 02/03/17 20:38 ; Admin Dose 7.944 MLS/HR; Start 02/03/17 at 09:00 Midazolam HCl (Versed) 50 ml @ 1 mls/hr TITRATE IV Last administered on 23:10; Admin Dose 2 MLS/HR; Start 02/04/17 at 00:30 Acetaminophen (Tylenol Liquid) 650 mg Q4H PRN GTB PAIN AND OR ELEVATED TEMP Last administered on 02/06/17 16:19; Admin Dose 650 MG; Start 02/04/17 at 08:30 Docusate Sodium 100 mg 100 mg BID NGT Last administered on 02/08/17 08:05; Admin Dose 100 MG; Start 02/05/17 at 09:00 Piperacillin Sod/ Tazobactam Sod 50 ml @ 200 mls/hr Q8 IVPB Last administered on 02/08/17 05:59; Admin Dose 200 MLS/HR; Start 02/05/17 at 14:00 Fat Emulsion Intravenous 250 ml @ 10 mls/hr Q24H IV Last administered on 20:31; Admin Dose 10 MLS/HR; Start 02/05/17 at 20:00 Total Parenteral Nutrition (Tpn) 1,000 ml @ 70 mls/hr [id number] IV Last administered on 02/08/17 05:59; Admin Dose 70 MLS/HR; Start 02/05/17 at 20:00 Lorazepam (Ativan) 2 mg Q2 PRN IV AGITATION Last administered on 02/08/17 06: 57; Admin Dose 2 MG; Start 02/06/17 at 12:00 Furosemide (Lasix) 20 mg DAILY IV Last administered on 02/08/17 08:05; Admin Dose 20 MG; Start 02/07/17 at 11:00 Diagnostic Test (Pha) 1 ea 1 ea Q8 XX ; Start 02/07/17 at 22:00 Vancomycin HCl/ Sodium Chloride (Vancocin/NS) 250 ml @ 83.333 mls/ hr Q12H IVPB ; Start 02/08/17 at 12:00 Assessment/Plan Additional Assessment/Plan IMP: 1. Hypoxemic respiratory failure with alveolar hypoventilation neuromuscular weakness--> s/p extubation 2. Stage IV ovarian cancer status post hysterectomy with bilateral salpingo- oophorectomy 3. Postop ileus slowly resolving 4. Status post septic shock. 5. Postop persistent leukocytosis 6. Anemia RECS: 1. Continue daily diuresis--> watch for contraction met alkalosis 2. Needs aggressive PT/OT 3. Continue postop surgical recommendations 4. Am labs; obtain pre-albumin 5. Continue TPN 35 min cc time ANA STILL MD Feb 08, 2017 10:47
[2017-02-08] MEDS: VANCOMYCIN 1.5 GM in SOD CHLORIDE 0.9% 250 ML IVPB SCH ×2 (12:13→23:50)
--- NOTE | 2017-02-08 15:44 | PN ---
Date/Time of Note Date/Time of Note DATE: 02/08/17 TIME: 15:38 Assessment/Plan VTE Prophylaxis VTE Prophylaxis Intervention: SCD's Lines/Catheters IV Catheter Type (from [facility]): Central Line Central line still needed: Yes Urinary Cath still in place: Yes Reason Cath still needed: urinary retention Assessment/Plan Assessment/Plan 56 yo F with known stage 4 ovarian Ca here admitted for abd pain from malignant ascites sp para 10.19. hospitalization also notable for hydro AUR from her ascites, sp ureteral stenting also sp cytoreduction 02.02. 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 for fever, urine cultures negative, CXR without focal consolidation. respiratory culture with NRF. + blood culture consistent with contaminant v ?line sepsis? abx as per ID TPN given ileus-->aggressive lyte repletion AUR: cont sen. PT/OT evals subclinical hypothyroid: outpatient f/u transfer to tele Exam/Review of Systems Vital Signs Vitals Vital Signs Date Time Temp Pulse Resp B/P Pulse Ox O2 Delivery O2 Flow Rate FiO2 02/08/17 14:00 110 33 110/73 100 Nasal Cannula 3.0 02/08/17 12:00 99.7 02/07/17 08:00 30 Intake and Output 02/07/17 02/07/17 02/08/17 15:00 23:00 07:00 Intake Total 1037.5 ml 939.60 ml 740 ml Output Total 1835 ml 665 ml 525 ml Balance -797.5 ml 274.60 ml 215 ml Results Result Diagram: 02/08/17 0445 02/08/17 0450 Results 24 hrs Laboratory Tests Test 02/07/17 20:46 02/07/17 22:59 02/08/17 04:45 02/08/17 04:49 Bedside Glucose 114 Vancomycin Level Trough 7.8 L White Blood Count 7.8 # Red Blood Count 3.79 #L Hemoglobin 8.8 L Hematocrit 29.5 L Mean Corpuscular Volume 77.8 L Mean Corpuscular Hemoglobin 23.2 L Mean Corpuscular Hemoglobin Concent 29.8 L Red Cell Distribution Width 20.8 H Platelet Count 317 # Mean Platelet Volume 11.2 H Neutrophils % 59.6 Lymphocytes % 24.0 Monocytes % 7.3 Eosinophils % 7.7 H Basophils % 0.5 Nucleated Red Blood Cells % 0.0 Neutrophils # 4.6 Lymphocytes # 1.9 Monocytes # 0.6 Eosinophils # 0.6 H Basophils # 0.0 Nucleated Red Blood Cells # 0.0 Lactic Acid Level 2.0 Phosphorus Level 3.5 Magnesium Level 2.5 Prealbumin 19.2 Test 02/08/17 04:50 02/08/17 05:00 02/08/17 13:38 Sodium Level 146 H Potassium Level 3.1 L Chloride Level 112 H Carbon Dioxide Level 27 Anion Gap 10 Blood Urea Nitrogen 13 Creatinine 0.53 Glucose Level 117 Calcium Level 8.1 L Blood Gas Specimen Source Blood arterial Arterial Blood Date Drawn 02/08/2017 5:00:45 AM Arterial Blood pH (Temp corrected) 7.551 *H Arterial Blood pCO2 (Temp correct) 28.8 L Arterial Blood pO2 (Temp corrected) 99.0 Arterial Blood HCO3 24.7 Arterial Blood Base Excess 1.8 Arterial Blood Oxygen Saturation 97.9 Bi Test ACCEPTAB Arterial Blood Gas Puncture Site Right Radial Arterial Blood Carboxyhemoglobin 0.6 Arterial Blood Methemoglobin 1.0 Blood Gas A-a O2 Differential 81.1 H Oxyhemoglobin Percent 96.3 Total Hemoglobin 3.9 L Blood Gas Temperature 37.0 Blood Gas Actual Respiration Rate 29 Blood Gas Modality NASAL CANNULA FiO2 30.0 Blood Gas Critical Value Read Back TY NILSA BECKER Blood Gas Notified Whom Blood Gas Notified Time 02/08/2017 5:20:10 AM Bedside Glucose 121 Medications Medications Current Medications Ondansetron HCl (Zofran Tab) 4 mg Q6H PRN PO NAUSEA AND/OR VOMITING; Start at 16:00 Acetaminophen (Tylenol Tab) 650 mg Q6H PRN PO PAIN LEVEL 1-3 OR FEVER Last administered on 02/06/17 23:54; Admin Dose 650 MG; Start 01/22/17 at 16:00 Docusate Sodium (Colace) 100 mg Q12H PRN PO CONSTIPATION; Start 01/22/17 at 16 :00 Magnesium Hydroxide (Milk Of Mag) 30 ml DAILY PRN PO CONSTIPATION Last administered on 01/31/17 07:38; Admin Dose 30 ML; Start 01/22/17 at 16:00 Bisacodyl (Dulcolax) 5 mg DAILY PRN PO CONSTIPATION Last administered on 05:07; Admin Dose 5 MG; Start 01/22/17 at 16:00 Polyethylene Glycol (Miralax) 17 gm DAILY PO Last administered on 02/08/17 08: 05; Admin Dose 17 GM; Start 01/26/17 at 15:30 Sodium Biphosphate/ Sodium Phosphate (Fleet Enema) 133 ml DAILY PRN [place] CONSTIPATION Last administered on 01/27/17 06:17; Admin Dose 133 ML; Start at 20:30 Tolterodine Tartrate (Detrol La) 4 mg DAILY PO Last administered on 02/08/17 08:05; Admin Dose 4 MG; Start 01/27/17 at 15:30 Morphine Sulfate 2 mg 2 mg Q2H PRN IV PAIN LEVEL 7-10 Last administered on 02/08 15:34; Admin Dose 2 MG; Start 01/28/17 at 14:00 Ondansetron HCl/ Dextrose (Zofran Inj/D5W) 54 ml @ 108 mls/hr Q6H PRN IV NAUSEA AND/OR VOMITING; Start 01/31/17 at 12:00 Hydromorphone HCl (Dilaudid) 1 mg Q2H PRN IV PAIN LEVEL 6-10 Last administered on 02/02/17 21:43; Admin Dose 1 MG; Start 02/02/17 at 11:30 Diphenhydramine HCl 25 mg 25 mg Q6H PRN IV ITCHING Last administered on 23:55; Admin Dose 25 MG; Start 02/02/17 at 11:30 Midazolam HCl (Versed) 50 ml @ 1 mls/hr TITRATE IV Last administered on 23:10; Admin Dose 2 MLS/HR; Start 02/04/17 at 00:30 Acetaminophen (Tylenol Liquid) 650 mg Q4H PRN GTB PAIN AND OR ELEVATED TEMP Last administered on 02/06/17 16:19; Admin Dose 650 MG; Start 02/04/17 at 08:30 Docusate Sodium 100 mg 100 mg BID NGT Last administered on 02/08/17 08:05; Admin Dose 100 MG; Start 02/05/17 at 09:00 Piperacillin Sod/ Tazobactam Sod 50 ml @ 200 mls/hr Q8 IVPB Last administered on 02/08/17 14:08; Admin Dose 200 MLS/HR; Start 02/05/17 at 14:00 Fat Emulsion Intravenous 250 ml @ 10 mls/hr Q24H IV Last administered on 20:31; Admin Dose 10 MLS/HR; Start 02/05/17 at 20:00 Total Parenteral Nutrition (Tpn) 1,000 ml @ 70 mls/hr [id number] IV Last administered on 02/08/17 12:14; Admin Dose 70 MLS/HR; Start 02/05/17 at 20:00 Lorazepam (Ativan) 2 mg Q2 PRN IV AGITATION Last administered on 02/08/17 12: 12; Admin Dose 2 MG; Start 02/06/17 at 12:00 Furosemide (Lasix) 20 mg DAILY IV Last administered on 02/08/17 08:05; Admin Dose 20 MG; Start 02/07/17 at 11:00 Diagnostic Test (Pha) 1 ea 1 ea Q8 XX Last administered on 02/08/17 14:07; Admin Dose 1 EA; Start 02/07/17 at 22:00 Vancomycin HCl/ Sodium Chloride (Vancocin/NS) 250 ml @ 83.333 mls/ hr Q12H IVPB Last administered on 02/08/17 12:13; Admin Dose 83.333 MLS/HR; Start 02/08/17 at 12:00 DAYANARA BROWN MD Feb 08, 2017 15:44
[2017-02-08] MEDS: DIPHENHYDRAMINE 50 MG INJ IV PRN (17:19)
--- NOTE | 2017-02-08 17:53 | PN ---
Date/Time of Note Date/Time of Note DATE: 02/08/17 TIME: 17:45 Assessment/Plan VTE Prophylaxis VTE Prophylaxis Intervention: LMWH Lines/Catheters IV Catheter Type (from Nrs): Central Line Central line still needed: Yes Urinary Cath still in place: Yes Reason Cath still needed: other (indicate) Assessment/Plan Chief Complaint/Hosp Course Stage IIIc - IV ovarian cancer Problems: Assessment/Plan A- improved P- agree to transfer 5w and await conversation. Probably pulm consult and abx.. Essential to keep in NGT and when stable TPN. Subjective 24 Hr Interval Summary Free Text/Dictation minimally awake; was recently extubated Exam/Review of Systems Vital Signs Vitals Vital Signs Date Time Temp Pulse Resp B/P Pulse Ox O2 Delivery O2 Flow Rate FiO2 02/08/17 17:29 3.0 02/08/17 16:00 103 02/08/17 14:00 33 110/73 100 Nasal Cannula 02/08/17 12:00 99.7 02/07/17 08:00 30 Intake and Output 02/07/17 02/07/17 02/08/17 15:00 23:00 07:00 Intake Total 1037.5 ml 939.60 ml 740 ml Output Total 1835 ml 665 ml 525 ml Balance -797.5 ml 274.60 ml 215 ml Exam Resp- labored CVS- NSR Abd- slight distension Ext- NT left edema Results Result Diagram: 02/08/17 0445 02/08/17 0450 Results 24 hrs Laboratory Tests Test 02/07/17 20:46 02/07/17 22:59 02/08/17 04:45 02/08/17 04:49 Bedside Glucose 114 Vancomycin Level Trough 7.8 L White Blood Count 7.8 # Red Blood Count 3.79 #L Hemoglobin 8.8 L Hematocrit 29.5 L Mean Corpuscular Volume 77.8 L Mean Corpuscular Hemoglobin 23.2 L Mean Corpuscular Hemoglobin Concent 29.8 L Red Cell Distribution Width 20.8 H Platelet Count 317 # Mean Platelet Volume 11.2 H Neutrophils % 59.6 Lymphocytes % 24.0 Monocytes % 7.3 Eosinophils % 7.7 H Basophils % 0.5 Nucleated Red Blood Cells % 0.0 Neutrophils # 4.6 Lymphocytes # 1.9 Monocytes # 0.6 Eosinophils # 0.6 H Basophils # 0.0 Nucleated Red Blood Cells # 0.0 Lactic Acid Level 2.0 Phosphorus Level 3.5 Magnesium Level 2.5 Prealbumin 19.2 Test 02/08/17 04:50 02/08/17 05:00 02/08/17 13:38 Sodium Level 146 H Potassium Level 3.1 L Chloride Level 112 H Carbon Dioxide Level 27 Anion Gap 10 Blood Urea Nitrogen 13 Creatinine 0.53 Glucose Level 117 Calcium Level 8.1 L Blood Gas Specimen Source Blood arterial Arterial Blood Date Drawn 02/08/2017 5:00:45 AM Arterial Blood pH (Temp corrected) 7.551 *H Arterial Blood pCO2 (Temp correct) 28.8 L Arterial Blood pO2 (Temp corrected) 99.0 Arterial Blood HCO3 24.7 Arterial Blood Base Excess 1.8 Arterial Blood Oxygen Saturation 97.9 Bi Test ACCEPTAB Arterial Blood Gas Puncture Site Right Radial Arterial Blood Carboxyhemoglobin 0.6 Arterial Blood Methemoglobin 1.0 Blood Gas A-a O2 Differential 81.1 H Oxyhemoglobin Percent 96.3 Total Hemoglobin 3.9 L Blood Gas Temperature 37.0 Blood Gas Actual Respiration Rate 29 Blood Gas Modality NASAL CANNULA FiO2 30.0 Blood Gas Critical Value Read Back TY NILSA BECKER Blood Gas Notified Whom Blood Gas Notified Time 02/08/2017 5:20:10 AM Bedside Glucose 121 Medications Medications Current Medications Ondansetron HCl (Zofran Tab) 4 mg Q6H PRN PO NAUSEA AND/OR VOMITING; Start at 16:00 Acetaminophen (Tylenol Tab) 650 mg Q6H PRN PO PAIN LEVEL 1-3 OR FEVER Last administered on 02/06/17 23:54; Admin Dose 650 MG; Start 01/22/17 at 16:00 Docusate Sodium (Colace) 100 mg Q12H PRN PO CONSTIPATION; Start 01/22/17 at 16 :00 Magnesium Hydroxide (Milk Of Mag) 30 ml DAILY PRN PO CONSTIPATION Last administered on 01/31/17 07:38; Admin Dose 30 ML; Start 01/22/17 at 16:00 Bisacodyl (Dulcolax) 5 mg DAILY PRN PO CONSTIPATION Last administered on 05:07; Admin Dose 5 MG; Start 01/22/17 at 16:00 Polyethylene Glycol (Miralax) 17 gm DAILY PO Last administered on 02/08/17 08: 05; Admin Dose 17 GM; Start 01/26/17 at 15:30 Sodium Biphosphate/ Sodium Phosphate (Fleet Enema) 133 ml DAILY PRN [place] CONSTIPATION Last administered on 01/27/17 06:17; Admin Dose 133 ML; Start at 20:30 Tolterodine Tartrate (Detrol La) 4 mg DAILY PO Last administered on 02/08/17 08:05; Admin Dose 4 MG; Start 01/27/17 at 15:30 Morphine Sulfate 2 mg 2 mg Q2H PRN IV PAIN LEVEL 7-10 Last administered on 02/08 17:25; Admin Dose 2 MG; Start 01/28/17 at 14:00 Ondansetron HCl/ Dextrose (Zofran Inj/D5W) 54 ml @ 108 mls/hr Q6H PRN IV NAUSEA AND/OR VOMITING; Start 01/31/17 at 12:00 Hydromorphone HCl (Dilaudid) 1 mg Q2H PRN IV PAIN LEVEL 6-10 Last administered on 02/02/17 21:43; Admin Dose 1 MG; Start 02/02/17 at 11:30 Diphenhydramine HCl 25 mg 25 mg Q6H PRN IV ITCHING Last administered on 17:19; Admin Dose 25 MG; Start 02/02/17 at 11:30 Midazolam HCl (Versed) 50 ml @ 1 mls/hr TITRATE IV Last administered on 23:10; Admin Dose 2 MLS/HR; Start 02/04/17 at 00:30 Acetaminophen (Tylenol Liquid) 650 mg Q4H PRN GTB PAIN AND OR ELEVATED TEMP Last administered on 02/06/17 16:19; Admin Dose 650 MG; Start 02/04/17 at 08:30 Docusate Sodium 100 mg 100 mg BID NGT Last administered on 02/08/17 08:05; Admin Dose 100 MG; Start 02/05/17 at 09:00 Piperacillin Sod/ Tazobactam Sod 50 ml @ 200 mls/hr Q8 IVPB Last administered on 02/08/17 14:08; Admin Dose 200 MLS/HR; Start 02/05/17 at 14:00 Fat Emulsion Intravenous 250 ml @ 10 mls/hr Q24H IV Last administered on 20:31; Admin Dose 10 MLS/HR; Start 02/05/17 at 20:00 Total Parenteral Nutrition (Tpn) 1,000 ml @ 70 mls/hr [id number] IV Last administered on 02/08/17 12:14; Admin Dose 70 MLS/HR; Start 02/05/17 at 20:00 Lorazepam (Ativan) 2 mg Q2 PRN IV AGITATION Last administered on 02/08/17 17: 19; Admin Dose 2 MG; Start 02/06/17 at 12:00 Furosemide (Lasix) 20 mg DAILY IV Last administered on 02/08/17 08:05; Admin Dose 20 MG; Start 02/07/17 at 11:00 Diagnostic Test (Pha) 1 ea 1 ea Q8 XX Last administered on 02/08/17 14:07; Admin Dose 1 EA; Start 02/07/17 at 22:00 Vancomycin HCl/ Sodium Chloride (Vancocin/NS) 250 ml @ 83.333 mls/ hr Q12H IVPB Last administered on 02/08/17 12:13; Admin Dose 83.333 MLS/HR; Start 02/08/17 at 12:00 RAUL EUCEDA MD Feb 08, 2017 17:53
--- NOTE | 2017-02-08 18:10 | CONS ---
Date/Time of Note Date/Time of Note DATE: 02/08/17 TIME: 18:08 Assessment/Plan Assessment/Plan Chief Complaint/Hosp Course ADVANCED OVARIAN CANCER WITH MALIGNANT ASCITES AND PERITONEAL carcinomatosis Large conglomerate pelvic mass inseparable from the uterus, sigmoid colon and rectum containing clumps of calcification suspicious for calcified fibroids and containing cystic areas. Large amount of free intraperitoneal fluid measuring 25 HU with caking of the omentum compatible with carcinomatosis. Centralization of bowel without evidence of bowel obstruction. Moderately severe right hydronephrosis and hydroureter to the level of the pelvic mass. There is moderate left pelvocaliectasis without ureteral dilatation. The bladder is quite distended with urine. POST cystoscopy and insertion of bilateral JJ stents CT CHEST - EDOUARD, EXCEPT SMALL L PLEURAL EFFUSION CA 125- 337 POST debulking surgery PATH- [id number] High grade serous carcinoma. PLAN- CHEMO WHEN CLEARED BY GYNEONC ANEMIA, MICROCYTOSIS COMPLEX ANEMIA W-UP= + COMPONENT ACD DROP H/H POSTOP SERIAL H/H PRBC NEEDED PER STANDING ORDERS D/W RN LEUKOCYTOSIS REACTIVE, PARTIALLY 2 TO Splenectomy malignant ascites sp para 10.19. hydro AUR from ascites, sp ureteral stenting. Problems: Consultation Date/Type/Reason Admit Date/Time Jan 22, 2017 at 14:12 Initial Consult Date 01/27/17 Type of Consultation: [facility] Referring Provider: RAUL EUCEDA MD 24 HR Interval Summary Free Text/Dictation ALL NOTED EXTUBATED GOING TO 5 W Exam/Review of Systems Vital Signs Vitals Vital Signs Date Time Temp Pulse Resp B/P Pulse Ox O2 Delivery O2 Flow Rate FiO2 02/08/17 17:29 3.0 02/08/17 17:00 106 27 109/67 100 Nasal Cannula 02/08/17 16:00 99.4 02/07/17 08:00 30 Intake and Output 02/07/17 02/07/17 02/08/17 15:00 23:00 07:00 Intake Total 1037.5 ml 939.60 ml 740 ml Output Total 1835 ml 665 ml 525 ml Balance -797.5 ml 274.60 ml 215 ml Exam Constitutional: Lethargic, stable , EXTUBATED HEENT: At, NC, anicteric,NGT-> low suction w/green bile Neck: Trach midline Respiratory: Clear anterior, diminished BLL Cardiovascular: NSR on tele, radial pulses 2+ bilaterally Gastrointestinal: Soft, bilateral J/P drains Extremities: Warm, no cyanosis, trace edema Neurological: LETHARGIC Results Result Diagram: 02/08/17 0445 02/08/17 0450 Results 24 hrs Laboratory Tests Test 02/07/17 20:46 02/07/17 22:59 02/08/17 04:45 02/08/17 04:49 Bedside Glucose 114 Vancomycin Level Trough 7.8 L White Blood Count 7.8 # Red Blood Count 3.79 #L Hemoglobin 8.8 L Hematocrit 29.5 L Mean Corpuscular Volume 77.8 L Mean Corpuscular Hemoglobin 23.2 L Mean Corpuscular Hemoglobin Concent 29.8 L Red Cell Distribution Width 20.8 H Platelet Count 317 # Mean Platelet Volume 11.2 H Neutrophils % 59.6 Lymphocytes % 24.0 Monocytes % 7.3 Eosinophils % 7.7 H Basophils % 0.5 Nucleated Red Blood Cells % 0.0 Neutrophils # 4.6 Lymphocytes # 1.9 Monocytes # 0.6 Eosinophils # 0.6 H Basophils # 0.0 Nucleated Red Blood Cells # 0.0 Lactic Acid Level 2.0 Phosphorus Level 3.5 Magnesium Level 2.5 Prealbumin 19.2 Test 02/08/17 04:50 02/08/17 05:00 02/08/17 13:38 Sodium Level 146 H Potassium Level 3.1 L Chloride Level 112 H Carbon Dioxide Level 27 Anion Gap 10 Blood Urea Nitrogen 13 Creatinine 0.53 Glucose Level 117 Calcium Level 8.1 L Blood Gas Specimen Source Blood arterial Arterial Blood Date Drawn 02/08/2017 5:00:45 AM Arterial Blood pH (Temp corrected) 7.551 *H Arterial Blood pCO2 (Temp correct) 28.8 L Arterial Blood pO2 (Temp corrected) 99.0 Arterial Blood HCO3 24.7 Arterial Blood Base Excess 1.8 Arterial Blood Oxygen Saturation 97.9 Bi Test ACCEPTAB Arterial Blood Gas Puncture Site Right Radial Arterial Blood Carboxyhemoglobin 0.6 Arterial Blood Methemoglobin 1.0 Blood Gas A-a O2 Differential 81.1 H Oxyhemoglobin Percent 96.3 Total Hemoglobin 3.9 L Blood Gas Temperature 37.0 Blood Gas Actual Respiration Rate 29 Blood Gas Modality NASAL CANNULA FiO2 30.0 Blood Gas Critical Value Read Back TY NILSA BECKER Blood Gas Notified Whom Blood Gas Notified Time 02/08/2017 5:20:10 AM Bedside Glucose 121 Medications Medications Current Medications Ondansetron HCl (Zofran Tab) 4 mg Q6H PRN PO NAUSEA AND/OR VOMITING; Start at 16:00 Acetaminophen (Tylenol Tab) 650 mg Q6H PRN PO PAIN LEVEL 1-3 OR FEVER Last administered on 02/06/17 23:54; Admin Dose 650 MG; Start 01/22/17 at 16:00 Docusate Sodium (Colace) 100 mg Q12H PRN PO CONSTIPATION; Start 01/22/17 at 16 :00 Magnesium Hydroxide (Milk Of Mag) 30 ml DAILY PRN PO CONSTIPATION Last administered on 01/31/17 07:38; Admin Dose 30 ML; Start 01/22/17 at 16:00 Bisacodyl (Dulcolax) 5 mg DAILY PRN PO CONSTIPATION Last administered on 05:07; Admin Dose 5 MG; Start 01/22/17 at 16:00 Polyethylene Glycol (Miralax) 17 gm DAILY PO Last administered on 02/08/17 08: 05; Admin Dose 17 GM; Start 01/26/17 at 15:30 Sodium Biphosphate/ Sodium Phosphate (Fleet Enema) 133 ml DAILY PRN [place] CONSTIPATION Last administered on 01/27/17 06:17; Admin Dose 133 ML; Start at 20:30 Tolterodine Tartrate (Detrol La) 4 mg DAILY PO Last administered on 02/08/17 08:05; Admin Dose 4 MG; Start 01/27/17 at 15:30 Morphine Sulfate 2 mg 2 mg Q2H PRN IV PAIN LEVEL 7-10 Last administered on 02/08 17:25; Admin Dose 2 MG; Start 01/28/17 at 14:00 Ondansetron HCl/ Dextrose (Zofran Inj/D5W) 54 ml @ 108 mls/hr Q6H PRN IV NAUSEA AND/OR VOMITING; Start 01/31/17 at 12:00 Hydromorphone HCl (Dilaudid) 1 mg Q2H PRN IV PAIN LEVEL 6-10 Last administered on 02/02/17 21:43; Admin Dose 1 MG; Start 02/02/17 at 11:30 Diphenhydramine HCl (Benadryl) 25 mg Q6H PRN IV ITCHING Last administered on 17:19; Admin Dose 25 MG; Start 02/02/17 at 11:30 Acetaminophen (Tylenol Liquid) 650 mg Q4H PRN GTB PAIN AND OR ELEVATED TEMP Last administered on 02/06/17 16:19; Admin Dose 650 MG; Start 02/04/17 at 08:30 Docusate Sodium 100 mg 100 mg BID NGT Last administered on 02/08/17 08:05; Admin Dose 100 MG; Start 02/05/17 at 09:00 Piperacillin Sod/ Tazobactam Sod 50 ml @ 200 mls/hr Q8 IVPB Last administered on 02/08/17 14:08; Admin Dose 200 MLS/HR; Start 02/05/17 at 14:00 Fat Emulsion Intravenous 250 ml @ 10 mls/hr Q24H IV Last administered on 20:31; Admin Dose 10 MLS/HR; Start 02/05/17 at 20:00 Total Parenteral Nutrition (Tpn) 1,000 ml @ 70 mls/hr [id number] IV Last administered on 02/08/17 12:14; Admin Dose 70 MLS/HR; Start 02/05/17 at 20:00 Lorazepam (Ativan) 2 mg Q2 PRN IV AGITATION Last administered on 02/08/17 17: 19; Admin Dose 2 MG; Start 02/06/17 at 12:00 Furosemide (Lasix) 20 mg DAILY IV Last administered on 02/08/17 08:05; Admin Dose 20 MG; Start 02/07/17 at 11:00 Diagnostic Test (Pha) 1 ea 1 ea Q8 XX Last administered on 02/08/17 14:07; Admin Dose 1 EA; Start 02/07/17 at 22:00 Vancomycin HCl/ Sodium Chloride (Vancocin/NS) 250 ml @ 83.333 mls/ hr Q12H IVPB Last administered on 02/08/17 12:13; Admin Dose 83.333 MLS/HR; Start 02/08/17 at 12:00 RAMIREZ YBARRA MD Feb 08, 2017 18:10
[2017-02-08] MEDS: HYDROmorphONE 0.5 MG/0.5 ML SYG IV PRN ×2 (19:06→23:50)
[2017-02-08 19:31] LABS: INR 1.14; PROTIME 14.6 Sec (12.2-14.2); PT RATIO 1.1
[2017-02-08] MEDS: FAT EMULSION 20% 250 ML IV SCH (21:05)
[2017-02-09] VITALS (17 sets, daily range): BP systolic 103–129; BP diastolic 57–77; PULSE 100–126; RESP 16–37
[2017-02-09] MEDS: TPN 1,000 ML IV SCH (03:04)
[2017-02-09] MEDS: LORAZEPAM 2 MG INJ IV PRN ×4 (03:04→22:28)
[2017-02-09] MEDS: HYDROmorphONE 0.5 MG/0.5 ML SYG IV PRN ×4 (03:05→22:28)
[2017-02-09] MEDS: PIPER-TAZO 3.375 GM IV (PMX) 50 ML IVPB SCH ×3 (05:18→22:11)
[2017-02-09] MEDS: ACCU-CHEK XX SCH ×3 (05:18→22:00)
[2017-02-09] MEDS ORDERED: ACETAMINOPHEN 1000MG/100ML IV 100 ML IVPB SCH (06:00)
[2017-02-09 07:12] LABS: CALCIUM 8.2 mg/dl (8.4-10.2); CREATININE 0.53 mg/dl (0.44-1.00); POTASSIUM 3.2 mmol/L (3.5-5.1)
[2017-02-09 07:20] LABS: MAGNESIUM 1.8 mg/dl (1.7-2.5); PHOSPHORUS 3.5 mg/dl (2.5-4.9)
[2017-02-09 08:05] LABS: ABNORMAL IP MESSAGE 1; BASOPHILS % 0.1 % (0.0-2.0); EOSINOPHILS % 0.4 % (0.0-7.0); HEMATOCRIT 22.3 % (37.0-47.0); LYMPHOCYTES # 0.5 10^3/ul (0.8-2.9); LYMPHOCYTES % 5.1 % (15.0-51.0); MEAN CORPUSCULAR HEMOGLOBIN 27.8 pg (29.0-33.0); MEAN CORPUSCULAR HGB CONC 31.4 g/dl (32.0-37.0); MEAN CORPUSCULAR VOLUME 88.5 fl (82.0-101.0); MEAN PLATELET VOLUME 12.3 fl (7.4-10.4); MONOCYTE # 1.2 10^3/ul (0.3-0.9); MONOCYTES % 11.2 % (0.0-11.0); NEUTROPHIL # 8.5 10^3/ul (1.6-7.5); NEUTROPHILS % 82.2 % (39.0-77.0); NUCLEATED RED BLOOD CELLS # 0.2 10^3/ul (0.0-0.0); PLATELET COUNT 392 10^3/UL (140-415); RED BLOOD COUNT 2.52 10^6/ul (4.20-5.40); RED CELL DISTRIBUTION WIDTH 18.7 % (11.5-14.5); WHITE BLOOD COUNT 10.3 10^3/ul (4.8-10.8)
[2017-02-09 08:08] LABS: POSITIVE DIFF @See below
[2017-02-09] MEDS: DOCUSATE SODIUM 10 MG/ML (10ML CUP) NGT SCH ×2 (09:00→21:00)
[2017-02-09] MEDS: TOLTERODINE (SR) 4 MG CAP PO SCH (09:00)
[2017-02-09] MEDS: FUROSEMIDE 20 MG INJ IV SCH (09:00)
[2017-02-09] MEDS: POLYETHYLENE GLYCOL 17 GM PACKET PO SCH (09:00)
[2017-02-09] MEDS ORDERED: POTASSIUM CHLORIDE 250 ML IVPB ONE (09:30)
[2017-02-09] MEDS ORDERED: DEXTROSE 5% 1,000 ML IV SCH (09:30)
--- NOTE | 2017-02-09 09:33 | PN ---
Date/Time of Note Date/Time of Note DATE: 02/09/17 TIME: 09:20 Assessment/Plan VTE Prophylaxis VTE Prophylaxis Intervention: SCD's Lines/Catheters IV Catheter Type (from [facility]): Central Line Central line still needed: Yes Urinary Cath still in place: Yes Reason Cath still needed: urinary retention Assessment/Plan Chief Complaint/Hosp Course Assessment/Plan: 56 yo F with known stage 4 ovarian Ca here admitted for abd pain from malignant ascites sp para 10.19, sp ureteral stenting as well sp debulking surgery on February 03. 1. 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 Empiric abx started 02.05 for fever, urine cultures negative, CXR without focal consolidation. respiratory culture with NRF. + blood culture consistent with contaminant v ?line sepsis? - Continue pain medications, TPN for now as apparently patient failed speech therapy eval this morning, continue abx as per ID - Follow-up gynecologic onc, pulm, and heme onc recommendations - f/u PT/OT evals - aggressive lyte repletion - AUR: cont sen. 2. subclinical hypothyroid: outpatient f/u Critical care time spent on patient care today equals 50 minutes Problems: Subjective 24 Hr Interval Summary Free Text/Dictation Patient extubated yesterday. Still on TPN. Still with some confusion. Seen by speech therapy this morning. Exam/Review of Systems Vital Signs Vitals Vital Signs Date Time Temp Pulse Resp B/P Pulse Ox O2 Delivery O2 Flow Rate FiO2 02/09/17 08:00 123 02/09/17 06:30 100.4 27 122/63 98 Nasal Cannula 02/09/17 03:00 2.0 02/07/17 08:00 30 Intake and Output 02/08/17 02/08/17 02/09/17 15:00 23:00 07:00 Intake Total 980 ml 630 ml 720 ml Output Total 1390 ml 795 ml 700 ml Balance -410 ml -165 ml 20 ml Exam Gen: still lethargic, opens eyes, NGT-> clamped presently HEENT: PERRL, EOMI, anicteric Neck: Trach midline Respiratory: Clear anterior, some diminished BLL Cardiovascular: NSR on tele, radial pulses 2+ bilaterally Gastrointestinal: Soft, bilateral J/P drains Extremities: Warm, no cyanosis, trace edema Neurological: s/p sedation Results Result Diagram: 02/09/17 0751 02/09/17 0543 Results 24 hrs Laboratory Tests Test 02/08/17 13:38 02/08/17 18:12 02/08/17 22:01 02/09/17 05:16 Bedside Glucose 121 108 102 Prothrombin Time 14.6 H Prothrombin Time Ratio 1.1 INR International Normalized Ratio 1.14 Test 02/09/17 05:43 02/09/17 07:51 Sodium Level 148 H Potassium Level 3.2 L Chloride Level 114 H Carbon Dioxide Level 28 Anion Gap 9 Blood Urea Nitrogen 15 Creatinine 0.53 Glucose Level 95 Calcium Level 8.2 L Phosphorus Level 3.5 Magnesium Level 1.8 White Blood Count 10.3 # Red Blood Count 2.52 #L Hemoglobin 7.0 #L Hematocrit 22.3 #L Mean Corpuscular Volume 88.5 Mean Corpuscular Hemoglobin 27.8 L Mean Corpuscular Hemoglobin Concent 31.4 L Red Cell Distribution Width 18.7 H Platelet Count 392 # Mean Platelet Volume 12.3 H Neutrophils % 82.2 H Lymphocytes % 5.1 L Monocytes % 11.2 H Eosinophils % 0.4 Basophils % 0.1 Nucleated Red Blood Cells % 2.0 H Neutrophils # 8.5 H Lymphocytes # 0.5 L Monocytes # 1.2 H Eosinophils # 0.0 Basophils # 0.0 Nucleated Red Blood Cells # 0.2 H Medications Medications Current Medications Ondansetron HCl (Zofran Tab) 4 mg Q6H PRN PO NAUSEA AND/OR VOMITING; Start at 16:00 Acetaminophen (Tylenol Tab) 650 mg Q6H PRN PO PAIN LEVEL 1-3 OR FEVER Last administered on 02/06/17 23:54; Admin Dose 650 MG; Start 01/22/17 at 16:00; Status Future Hold Docusate Sodium (Colace) 100 mg Q12H PRN PO CONSTIPATION; Start 01/22/17 at 16 :00 Magnesium Hydroxide (Milk Of Mag) 30 ml DAILY PRN PO CONSTIPATION Last administered on 01/31/17 07:38; Admin Dose 30 ML; Start 01/22/17 at 16:00 Bisacodyl (Dulcolax) 5 mg DAILY PRN PO CONSTIPATION Last administered on 05:07; Admin Dose 5 MG; Start 01/22/17 at 16:00 Polyethylene Glycol (Miralax) 17 gm DAILY PO Last administered on 02/09/17 09: 00; Admin Dose 17 GM; Start 01/26/17 at 15:30 Sodium Biphosphate/ Sodium Phosphate (Fleet Enema) 133 ml DAILY PRN [place] CONSTIPATION Last administered on 01/27/17 06:17; Admin Dose 133 ML; Start at 20:30 Tolterodine Tartrate (Detrol La) 4 mg DAILY PO Last administered on 02/09/17 09:00; Admin Dose 4 MG; Start 01/27/17 at 15:30 Morphine Sulfate 2 mg 2 mg Q2H PRN IV PAIN LEVEL 7-10 Last administered on 02/08 17:25; Admin Dose 2 MG; Start 01/28/17 at 14:00 Ondansetron HCl/ Dextrose (Zofran Inj/D5W) 54 ml @ 108 mls/hr Q6H PRN IV NAUSEA AND/OR VOMITING; Start 01/31/17 at 12:00 Hydromorphone HCl (Dilaudid) 1 mg Q2H PRN IV PAIN LEVEL 6-10 Last administered on 02/09/17 08:59; Admin Dose 1 MG; Start 02/02/17 at 11:30 Diphenhydramine HCl (Benadryl) 25 mg Q6H PRN IV ITCHING Last administered on 17:19; Admin Dose 25 MG; Start 02/02/17 at 11:30 Acetaminophen (Tylenol Liquid) 650 mg Q4H PRN GTB PAIN AND OR ELEVATED TEMP Last administered on 02/06/17 16:19; Admin Dose 650 MG; Start 02/04/17 at 08:30 ; Status Future Hold Docusate Sodium 100 mg 100 mg BID NGT Last administered on 02/09/17 09:00; Admin Dose 100 MG; Start 02/05/17 at 09:00 Piperacillin Sod/ Tazobactam Sod 50 ml @ 200 mls/hr Q8 IVPB Last administered on 02/09/17 05:18; Admin Dose 200 MLS/HR; Start 02/05/17 at 14:00 Fat Emulsion Intravenous 250 ml @ 10 mls/hr Q24H IV Last administered on 21:05; Admin Dose 10 MLS/HR; Start 02/05/17 at 20:00 Total Parenteral Nutrition (Tpn) 1,000 ml @ 70 mls/hr [id number] IV Last administered on 02/09/17 03:04; Admin Dose 70 MLS/HR; Start 02/05/17 at 20:00 Lorazepam (Ativan) 2 mg Q2 PRN IV AGITATION Last administered on 02/09/17 03: 04; Admin Dose 2 MG; Start 02/06/17 at 12:00 Furosemide (Lasix) 20 mg DAILY IV Last administered on 02/09/17 09:00; Admin Dose 20 MG; Start 02/07/17 at 11:00 Diagnostic Test (Pha) 1 ea 1 ea Q8 XX Last administered on 02/09/17 05:18; Admin Dose 1 EA; Start 02/07/17 at 22:00 Vancomycin HCl 1.5 gm/Sodium Chloride 250 ml @ 83.333 mls/ hr Q12H IVPB Last administered on 02/08/17 23:50; Admin Dose 83.333 MLS/HR; Start 02/08/17 at 12: 00 Acetaminophen 100 ml @ 400 mls/hr Q6H PRN IVPB FEVER; Start 02/09/17 at 12:00 Potassium Chloride 250 ml @ 62.5 mls/hr ONCE ONCE IVPB ; Start 02/09/17 at 09: 30; Stop 02/09/17 at 13:29; Status UNV Dextrose (D5W) 1,000 ml @ 75 mls/hr [id number] IV ; Start 02/09/17 at 09:30; Stop 02/09/17 at 21:30; Status UNV Procedures Procedures Feb 03 - Debulking surgery: Procedures: 1- En-bloc resection of pelvic disease; possible supracervical hysterectomy/ BSO 2- Bilateral ureteral dissection with repositioning 3- Omentectomy with cytoreduction 4- Spleenectomy 5- Diaphragm stripping 6- Enterolysis KENTRELL MACIAS 6, 2017 09:31
[2017-02-09] MEDS ORDERED: BARIUM SULF 2% 450 ML BTL (BERRY SMOOTHIE) PO SCH (10:30)
[2017-02-09] MEDS ORDERED: IOHEXOL 300MG/ML 150 ML BTL ONE (11:17)
[2017-02-09] MEDS ORDERED: SOD CHLORIDE 0.9% 100 ML ONE ×2 (11:17→18:24)
[2017-02-09] MEDS ORDERED: ACETAMINOPHEN 1000MG/100ML IV 100 ML IVPB PRN (12:00)
--- NOTE | 2017-02-09 12:29 | PN ---
DATE: 02/09/2017 SUBJECTIVE: No events overnight. The patient is lethargic with on and off restlessness. VITAL SIGNS: T-max 100.4, T-current 98.7, pulse 122, respirations 18, blood pressure 121/71, satura tion 100 on nasal cannula. LABORATORIES: WBC 10.3, H and H 7 and 22.3, platelets 392, neutrophils 82.2, BUN 15, creatinine 0.5 3. MICROBIOLOGY: Blood culture on 02/04/2017 grew coagulase-negative staph species. Repeat blood cult ures negative. Sputum culture negative. ANTIMICROBIALS: The patient is on vancomycin and Zosyn. INDWELLINGS: NG tube, Cullen catheter and JPs, right subclavian triple-lumen catheter. PHYSICAL EXAMINATION: GENERAL: This is a cachectic middle-aged woman who is lethargic, in no distress. HEENT: Head atraumatic, normocephalic. Sclerae anicteric. Buccal mucosa dry. NECK: Supple. CHEST: Rise symmetrical. Breath sounds diminished to bases with scattered crackles. HEART: S1, S2. ABDOMEN: Soft. Bowel tones hypoactive. EXTREMITIES: Without edema ASSESSMENT: 1. Resolving sepsis status post shock. 2. Status post acute respiratory failure, extubated several days ago. 3. Status post alpha hemolytic strep urinary tract infection. 4. Metastatic ovarian cancer, status post tumor debulking on 02/02/2017. 5. Bilateral hydronephrosis, status post JJ stent placement on 01/24/2017. 6. Cachexia. 7. Aspiration syndrome. PLAN: The patient remains stable post-extubation. Continue present care. Discontinue vancomycin, continue anti-aspiration measures. Consider CT abdomen and pelvis if the patient remains febrile. Dictated By: CARLOS SOLIZ TEACHER for DEONDRE STERLING/NTS Conf#: [id number] DID#: [id number]
[2017-02-09] MEDS: SOD FERRIC GLUC COMPLX 125 MG in SOD CHLORIDE 0.9% 100 ML IVPB SCH (12:38)
--- NOTE | 2017-02-09 12:57 | RADRPT ---
PROCEDURE: CT Abdomen and Pelvis with contrast. CLINICAL INDICATION: Abdomen and pelvis pain. Status post debulking surgery. Fever. TECHNIQUE: CT scan of the abdomen and pelvis with contrast was performed. The patient was scanned following the uncomplicated intravenous administration of 100 cc of Omnipaque-300. Coronal and sag ittal reformatted images were obtained from the axial source images. Images were reviewed on a high- resolution PACS workstation. Total exam DLP is 956.23 mGy-cm. CTDIvol is 14.88 mGy. One or more o f the following dose reduction techniques were used: Automated exposure control, adjustment of the m A and/or kV according to patient size, use of iterative reconstruction technique. COMPARISON: CT scan of the abdomen and pelvis dated 01/22/2017. CT pulmonary angiogram dated 01/22 FINDINGS: There are small bilateral pleural effusions with left larger than right. Mild atelectasis is present at the lung bases. There is a probable bilateral pulmonary emboli. A large filling defect is likely present in the dist al right main pulmonary artery. The liver is normal in size and attenuation. There is no focal hepatic lesion. There is diffuse gallbladder wall thickening. A gallstone is present in the gallbladder, unchanged. The bile ducts are normal. The spleen is surgically absent. Both adrenals are normal with no enlargement or mass. The pancreas is unremarkable with no mass or evidence of pancreatitis. Both kidneys demonstrate normal contrast enhancement. There is no renal mass. There is severe righ t hydronephrosis and mild left hydronephrosis due to the pelvic mass. Bilateral stents are present i n the ureters. The abdominal aorta is not dilated. There is calcification in the aorta consistent with atherosclero sis. There is no retroperitoneal lymphadenopathy or mass. A large pelvic mass is once again noted. A Cullen catheter is present in the bladder. Previously noted extensive omental metastatic disease has been probably a surgically excised. There is no evidence of bowel obstruction. Surgical drains are present in the abdomen. A nasogastric tube is present with the tip in the stomach. There is no free air. A fluid collection is present in the right side of the abdomen anteriorly linda uring 3.0 x 10.0 x 8.4 cm in AP, transverse, and cranial caudal dimensions. Fluid in the pelvis is l ikely related to necrotic tumor. There are degenerative changes of the spine. The osseous structures are otherwise unremarkable with no fracture or lytic lesion. IMPRESSION: 1. Bilateral pleural effusions with left larger than right. 2. Mild atelectasis at the lung bases. 3. Probable bilateral pulmonary emboli. Correlation with CT pulmonary angiogram advised. 4. Unchanged appearance of the gallbladder with diffuse wall thickening and probable gallstone. 5. Status post splenectomy. 6. Unchanged appearance of the kidneys with severe right hydronephrosis and mild left hydronephrosi s. Bilateral ureteral stents. 7. Large pelvic mass. Extensive fluid in the pelvis likely related to necrotic tumor. 8. Surgical excision of extensive omental metastatic disease. 9. Fluid collection in the right side of the abdomen anteriorly measuring 3.0 x 10.0 x 8.4 cm consi stent with probable abscess. 10. Degenerative changes of the spine. Call report: A call report of the findings was made to Dr. Tello on 02/09/2017 at 1240 hours. RPTAT: QQ .Eliud Yoder MD, MD Date Time Electronically viewed and signed by .Eliud Yoder MD, on 02/09/2017 12:57 .R/
[2017-02-09] MEDS ORDERED: SOD CHLORIDE 0.9% 250 ML IV* ONE (13:11)
[2017-02-09] MEDS ORDERED: IODIXANOL LOCM 100 ML BTL ONE (18:24)
[2017-02-09] MEDS: FAT EMULSION 20% 250 ML IV SCH (20:00)
[2017-02-09] MEDS: morphine 2 MG INJ IV PRN (21:00)
--- NOTE | 2017-02-09 23:12 | RADRPT ---
PROCEDURE: CT angiogram of the chest with contrast. CLINICAL INDICATION: Chest pain. TECHNIQUE: CT angiogram of the chest was obtained using a multi-detector high-resolution CT. Con tiguous axial images were obtained during the dynamic injection of 100 cc of Omnipaque 350 intraveno us contrast. Coronal and sagittal reformatted images were obtained. 3-D reformatted images were al so obtained. Images were reviewed on a PACS workstation. One or more of the following dose reduction techniques were used: - Automated exposure control. - Adjustment of the mA and/or kV according to patient size. - Use of iterative reconstruction technique. Exam CTD/vol = 7.91 mGy. Total exam DLP = 266.43 mGy-cm. COMPARISON: 01/22/2017. FINDINGS: There are filling defects within the distal right main pulmonary artery extending to the lobar and s egmental pulmonary arteries of the right middle and lower lobes. There are filling defects within th e lobar to segmental pulmonary arteries of the left upper and lower lobes. The heart is normal in s ize. There is no pericardial thickening or effusion. The aorta is of normal course and caliber wit hout evidence of aneurysm or dissection. There is a nasogastric tube extending to the stomach. The visualized thyroid is unremarkable. Ther e are no enlarged axillary lymph nodes. There are no enlarged mediastinal or hilar lymph nodes by C T criteria. There are moderate left and small right-sided pleural effusion with underlying atelecta sis. There are patchy airspace opacities within the right lower lobe. There is no parenchymal nodule or consolidation. There is no pleural effusion. The central tracheobronchial tree is within antwon l limits. Limited evaluation of the upper abdomen demonstrates ascites. A right-sided drainage catheter is pre sent. There is diffuse subcutaneous stranding consistent with anasarca. IMPRESSION: Bilateral pulmonary emboli. Moderate left and small right-sided pleural effusions with underlying atelectasis. Scattered air space opacities within the right lower lobe. Ascites. Anasarca. A call report was made to the patient's badillo nurse (Winnie) at 11:10 p.m. .Alonso Jessica MD, Date Time Electronically viewed and signed by .Alonso Jessica MD, on 02/09/2017 23:12 .T/
[2017-02-10] VITALS (15 sets, daily range): BP systolic 113–138; BP diastolic 63–81; PULSE 90–120; RESP 16–28
[2017-02-10] MEDS: TPN 1,000 ML IV SCH ×2 (00:06→12:49)
[2017-02-10] MEDS: morphine 2 MG INJ IV PRN ×2 (02:11→21:11)
[2017-02-10] MEDS ORDERED: HEPARIN 1000 UNITS/ML 10 ML INJ IV ONE (03:00)
[2017-02-10] MEDS ORDERED: HEPARIN 1000 UNITS/ML 10 ML INJ IV PRN (03:00)
[2017-02-10 03:28] LABS: INR 0.99; PARTIAL THROMBOPLASTIN TIME 27.8 Sec (25.0-35.0); PROTIME 13.1 Sec (12.2-14.2)
[2017-02-10] MEDS: HEPARIN 25000 UNITS/250 ML 250 ML IV SCH ×2 (03:33→18:05)
[2017-02-10] MEDS: LORAZEPAM 2 MG INJ IV PRN ×2 (04:22→13:01)
[2017-02-10] MEDS: PIPER-TAZO 3.375 GM IV (PMX) 50 ML IVPB SCH ×3 (05:44→22:53)
[2017-02-10] MEDS: ACCU-CHEK XX SCH ×3 (05:45→23:00)
[2017-02-10] MEDS: TOLTERODINE (SR) 4 MG CAP PO SCH (09:00)
[2017-02-10] MEDS: POLYETHYLENE GLYCOL 17 GM PACKET PO SCH (09:00)
[2017-02-10] MEDS: DOCUSATE SODIUM 10 MG/ML (10ML CUP) NGT SCH ×2 (09:00→20:03)
--- NOTE | 2017-02-10 09:12 | CONS ---
Date/Time of Note Date/Time of Note DATE: 02/09/17 TIME: 20:10 VK LE Assessment/Plan Assessment/Plan Chief Complaint/Hosp Course ADVANCED OVARIAN CANCER WITH MALIGNANT ASCITES AND PERITONEAL carcinomatosis Large conglomerate pelvic mass inseparable from the uterus, sigmoid colon and rectum containing clumps of calcification suspicious for calcified fibroids and containing cystic areas. Large amount of free intraperitoneal fluid measuring 25 HU with caking of the omentum compatible with carcinomatosis. Centralization of bowel without evidence of bowel obstruction. Moderately severe right hydronephrosis and hydroureter to the level of the pelvic mass. There is moderate left pelvocaliectasis without ureteral dilatation. The bladder is quite distended with urine. POST cystoscopy and insertion of bilateral JJ stents CT CHEST - EDOUARD, EXCEPT SMALL L PLEURAL EFFUSION CA 125- 337 POST debulking surgery PATH- [id number] High grade serous carcinoma. PLAN- CHEMO WHEN CLEARED BY GYNEONC ANEMIA, MICROCYTOSIS COMPLEX ANEMIA W-UP= + COMPONENT ACD DROP H/H POSTOP SERIAL H/H PRBC NEEDED PER STANDING ORDERS D/W RN LEUKOCYTOSIS REACTIVE, PARTIALLY 2 TO Splenectomy malignant ascites sp para 10.19. hydro AUR from ascites, sp ureteral stenting. ILEUS NG TPN Problems: Consultation Date/Type/Reason Admit Date/Time Jan 22, 2017 at 14:12 Initial Consult Date 01/27/17 Type of Consultation: [facility] Referring Provider: RAUL EUCEDA MD 24 HR Interval Summary Free Text/Dictation ALL NOTED PAIN CONTROLLED Exam/Review of Systems Vital Signs Vitals Vital Signs Date Time Temp Pulse Resp B/P Pulse Ox O2 Delivery O2 Flow Rate FiO2 02/10/17 08:00 115 02/10/17 07:26 99.5 26 137/63 95 02/10/17 04:07 3.0 02/09/17 20:00 Nasal Cannula 02/07/17 08:00 30 Intake and Output 02/09/17 02/09/17 02/10/17 15:00 23:00 07:00 Intake Total 0 ml 50 ml 1530 ml Output Total 160 ml 275 ml 1780 ml Balance -160 ml -225 ml -250 ml Exam Gen: still lethargic, opens eyes, NGT-> clamped presently HEENT: PERRL, EOMI, anicteric Neck: Trach midline Respiratory: Clear anterior, some diminished BLL Cardiovascular: NSR on tele, radial pulses 2+ bilaterally Gastrointestinal: Soft, bilateral J/P drains Extremities: Warm, no cyanosis, trace edema Neurological: s/p sedation Results Result Diagram: 02/09/17 1009 02/09/17 0543 Results 24 hrs Laboratory Tests Test 02/09/17 10:09 02/09/17 14:14 02/09/17 22:13 02/10/17 02:55 Hemoglobin 7.0 L Hematocrit 22.0 L Bedside Glucose 114 123 Prothrombin Time 13.1 Prothrombin Time Ratio 1.0 INR International Normalized Ratio 0.99 Activated Partial Thromboplast Time 27.8 Test 02/10/17 05:43 Bedside Glucose 126 Medications Medications Current Medications Ondansetron HCl (Zofran Tab) 4 mg Q6H PRN PO NAUSEA AND/OR VOMITING; Start at 16:00 Acetaminophen (Tylenol Tab) 650 mg Q6H PRN PO PAIN LEVEL 1-3 OR FEVER Last administered on 02/06/17 23:54; Admin Dose 650 MG; Start 01/22/17 at 16:00; Status Future Hold Docusate Sodium (Colace) 100 mg Q12H PRN PO CONSTIPATION; Start 01/22/17 at 16 :00 Magnesium Hydroxide (Milk Of Mag) 30 ml DAILY PRN PO CONSTIPATION Last administered on 01/31/17 07:38; Admin Dose 30 ML; Start 01/22/17 at 16:00 Bisacodyl (Dulcolax) 5 mg DAILY PRN PO CONSTIPATION Last administered on 05:07; Admin Dose 5 MG; Start 01/22/17 at 16:00 Polyethylene Glycol (Miralax) 17 gm DAILY PO Last administered on 02/09/17 09: 00; Admin Dose 17 GM; Start 01/26/17 at 15:30 Sodium Biphosphate/ Sodium Phosphate (Fleet Enema) 133 ml DAILY PRN NM CONSTIPATION Last administered on 01/27/17 06:17; Admin Dose 133 ML; Start at 20:30 Tolterodine Tartrate (Detrol La) 4 mg DAILY PO Last administered on 02/09/17 09:00; Admin Dose 4 MG; Start 01/27/17 at 15:30 Morphine Sulfate 2 mg 2 mg Q2H PRN IV PAIN LEVEL 7-10 Last administered on 02/10 02:11; Admin Dose 2 MG; Start 01/28/17 at 14:00 Ondansetron HCl/ Dextrose (Zofran Inj/D5W) 54 ml @ 108 mls/hr Q6H PRN IV NAUSEA AND/OR VOMITING; Start 01/31/17 at 12:00 Hydromorphone HCl (Dilaudid) 1 mg Q2H PRN IV PAIN LEVEL 6-10 Last administered on 02/09/17 22:28; Admin Dose 1 MG; Start 02/02/17 at 11:30 Diphenhydramine HCl (Benadryl) 25 mg Q6H PRN IV ITCHING Last administered on 17:19; Admin Dose 25 MG; Start 02/02/17 at 11:30 Acetaminophen (Tylenol Liquid) 650 mg Q4H PRN GTB PAIN AND OR ELEVATED TEMP Last administered on 02/06/17 16:19; Admin Dose 650 MG; Start 02/04/17 at 08:30 ; Status Future Hold Docusate Sodium 100 mg 100 mg BID NGT Last administered on 02/09/17 09:00; Admin Dose 100 MG; Start 02/05/17 at 09:00 Piperacillin Sod/ Tazobactam Sod 50 ml @ 200 mls/hr Q8 IVPB Last administered on 02/10/17 05:44; Admin Dose 200 MLS/HR; Start 02/05/17 at 14:00 Fat Emulsion Intravenous 250 ml @ 10 mls/hr Q24H IV Last administered on 21:05; Admin Dose 10 MLS/HR; Start 02/05/17 at 20:00 Total Parenteral Nutrition (Tpn) 1,000 ml @ 70 mls/hr [id number] IV Last administered on 02/09/17 03:04; Admin Dose 70 MLS/HR; Start 02/05/17 at 20:00 Lorazepam (Ativan) 2 mg Q2 PRN IV AGITATION Last administered on 02/10/17 04: 22; Admin Dose 2 MG; Start 02/06/17 at 12:00 Furosemide (Lasix) 20 mg DAILY IV Last administered on 02/09/17 09:00; Admin Dose 20 MG; Start 02/07/17 at 11:00 Diagnostic Test (Pha) 1 ea 1 ea Q8 XX Last administered on 02/09/17 05:18; Admin Dose 1 EA; Start 02/07/17 at 22:00 Acetaminophen 100 ml @ 400 mls/hr Q6H PRN IVPB FEVER; Start 02/09/17 at 12:00 Ferric Sodium Gluconate Complex/ Sodium Chloride (Ferrlecit/NS) 110 ml @ 100 mls/hr Q24H IVPB Last administered on 02/09/17 12:38; Admin Dose 100 MLS/HR; Start 02/09/17 at 12:00; Stop 02/11/17 at 13:05 RAMIREZ YBARRA MD Feb 10, 2017 09:12
[2017-02-10] MEDS: FUROSEMIDE 20 MG INJ IV SCH (09:41)
[2017-02-10 10:36] LABS: ABNORMAL IP MESSAGE 1; BASOPHILS % 0.1 % (0.0-2.0); EOSINOPHILS % 0.1 % (0.0-7.0); HEMATOCRIT 27.9 % (37.0-47.0); HEMOGLOBIN 8.9 g/dl (12.0-16.0); LYMPHOCYTES # 0.3 10^3/ul (0.8-2.9); LYMPHOCYTES % 2.4 % (15.0-51.0); MEAN CORPUSCULAR HEMOGLOBIN 27.6 pg (29.0-33.0); MEAN CORPUSCULAR HGB CONC 31.9 g/dl (32.0-37.0); MEAN CORPUSCULAR VOLUME 86.6 fl (82.0-101.0); MEAN PLATELET VOLUME 12.5 fl (7.4-10.4); MONOCYTE # 1.2 10^3/ul (0.3-0.9); MONOCYTES % 8.4 % (0.0-11.0); NEUTROPHIL # 12.5 10^3/ul (1.6-7.5); NEUTROPHILS % 87.6 % (39.0-77.0); NUCLEATED RED BLOOD CELLS # 0.3 10^3/ul (0.0-0.0); NUCLEATED RED BLOOD CELLS% 2.4 /100WBC (0.0-0.0); PLATELET COUNT 493 10^3/UL (140-415); RED BLOOD COUNT 3.22 10^6/ul (4.20-5.40); RED CELL DISTRIBUTION WIDTH 18.2 % (11.5-14.5); WHITE BLOOD COUNT 14.3 10^3/ul (4.8-10.8)
[2017-02-10 10:54] LABS: CALCIUM 8.4 mg/dl (8.4-10.2); CREATININE 0.56 mg/dl (0.44-1.00); POTASSIUM 3.3 mmol/L (3.5-5.1)
[2017-02-10] MEDS: SOD FERRIC GLUC COMPLX 125 MG in SOD CHLORIDE 0.9% 100 ML IVPB SCH (11:50)
--- NOTE | 2017-02-10 12:17 | PN ---
Date/Time of Note Date/Time of Note DATE: 02/10/17 TIME: 12:09 Assessment/Plan VTE Prophylaxis VTE Prophylaxis Intervention: SCD's Lines/Catheters [facility] Central Line Central line still needed: Yes Urinary Cath still in place: Yes Reason Cath still needed: urinary retention Assessment/Plan Chief Complaint/Hosp Course Assessment/Plan: 56 yo F with known stage 4 ovarian Ca here admitted for abd pain from malignant ascites sp para 10.19, sp ureteral stenting as well sp debulking surgery on February 03. 1. ovarian cancer: Status post debulking surgery postop day # 7, extubated 2 days ago, sp pressors but off these now, onc and public relations representative onc still following. 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 Empiric abx started 02.05 for fever, urine cultures negative, CXR without focal consolidation. respiratory culture with NRF. + blood cultures as well, now with bilateral pulmonary embolisms. - Continue pain medications, TPN for now as apparently patient failed speech therapy eval this morning, continue abx as per ID - Follow-up gynecologic onc, pulm, and heme onc recommendations - f/u PT/OT evals -Again, for CT-guided drainage of abdominal abscess, follow-up culture results, continue antibiotics -For bilateral pulmonary embolisms, will resume heparin drip after CT-guided drainage procedure, also will likely need IVC filter, this has been ordered, pending. 2. subclinical hypothyroid: outpatient f/u 3. Low hemoglobin: Patient received blood transfusion yesterday. Hemoglobin stable presently -Continue to monitor for now Critical care time spent on patient care today equals 50 minutes Problems: Subjective 24 Hr Interval Summary Free Text/Dictation Patient awaiting CT-guided drainage of abscess abdomen, which was found on CT scan yesterday. Also found with bilateral pulmonary embolism on CTA chest, started on heparin drip yesterday, presently held because of procedure to be done in a few hours. Still having some restlessness as well. Awaiting possible IVC filter placement as well later today. Exam/Review of Systems Vital Signs Vitals Vital Signs Date Time Temp Pulse Resp B/P Pulse Ox O2 Delivery O2 Flow Rate FiO2 02/10/17 08:00 115 02/10/17 07:26 99.5 26 137/63 95 02/10/17 04:07 3.0 02/09/17 20:00 Nasal Cannula 02/07/17 08:00 30 Intake and Output 02/09/17 02/09/17 02/10/17 15:00 23:00 07:00 Intake Total 0 ml 50 ml 1530 ml Output Total 160 ml 275 ml 1780 ml Balance -160 ml -225 ml -250 ml Exam Gen: still lethargic, opens eyes, NGT HEENT: PERRL, EOMI, anicteric Neck: Trach midline Respiratory: Clear anterior, some diminished BLL Cardiovascular: NSR on tele, radial pulses 2+ bilaterally Gastrointestinal: Soft, bilateral J/P drains Extremities: Warm, no cyanosis, trace edema Neurological: s/p sedation Results Result Diagram: 02/10/17 1003 02/10/17 1004 Results 24 hrs Laboratory Tests Test 02/09/17 14:14 02/09/17 22:13 02/10/17 02:55 02/10/17 05:43 Bedside Glucose 114 123 126 Prothrombin Time 13.1 Prothrombin Time Ratio 1.0 INR International Normalized Ratio 0.99 Activated Partial Thromboplast Time 27.8 Test 02/10/17 10:03 02/10/17 10:04 02/10/17 10:16 White Blood Count 14.3 #H Red Blood Count 3.22 #L Hemoglobin 8.9 #L Hematocrit 27.9 #L Mean Corpuscular Volume 86.6 Mean Corpuscular Hemoglobin 27.6 L Mean Corpuscular Hemoglobin Concent 31.9 L Red Cell Distribution Width 18.2 H Platelet Count 493 #H Mean Platelet Volume 12.5 H Neutrophils % 87.6 H Lymphocytes % 2.4 L Monocytes % 8.4 Eosinophils % 0.1 Basophils % 0.1 Nucleated Red Blood Cells % 2.4 H Neutrophils # 12.5 H Lymphocytes # 0.3 L Monocytes # 1.2 H Eosinophils # 0.0 Basophils # 0.0 Nucleated Red Blood Cells # 0.3 H Activated Partial Thromboplast Time 31.7 Sodium Level 146 H Potassium Level 3.3 L Chloride Level 110 Carbon Dioxide Level 29 Anion Gap 10 Blood Urea Nitrogen 13 Creatinine 0.56 Glucose Level 119 Calcium Level 8.4 Lab Scanned Report BLOOD TRANSFUSION Medications Medications Current Medications Ondansetron HCl (Zofran Tab) 4 mg Q6H PRN PO NAUSEA AND/OR VOMITING; Start at 16:00 Acetaminophen (Tylenol Tab) 650 mg Q6H PRN PO PAIN LEVEL 1-3 OR FEVER Last administered on 02/06/17 23:54; Admin Dose 650 MG; Start 01/22/17 at 16:00; Status Future Hold Docusate Sodium (Colace) 100 mg Q12H PRN PO CONSTIPATION; Start 01/22/17 at 16 :00 Magnesium Hydroxide (Milk Of Mag) 30 ml DAILY PRN PO CONSTIPATION Last administered on 01/31/17 07:38; Admin Dose 30 ML; Start 01/22/17 at 16:00 Bisacodyl (Dulcolax) 5 mg DAILY PRN PO CONSTIPATION Last administered on 05:07; Admin Dose 5 MG; Start 01/22/17 at 16:00 Polyethylene Glycol (Miralax) 17 gm DAILY PO Last administered on 02/09/17 09: 00; Admin Dose 17 GM; Start 01/26/17 at 15:30 Sodium Biphosphate/ Sodium Phosphate (Fleet Enema) 133 ml DAILY PRN ME CONSTIPATION Last administered on 01/27/17 06:17; Admin Dose 133 ML; Start at 20:30 Tolterodine Tartrate (Detrol La) 4 mg DAILY PO Last administered on 02/09/17 09:00; Admin Dose 4 MG; Start 01/27/17 at 15:30 Morphine Sulfate 2 mg 2 mg Q2H PRN IV PAIN LEVEL 7-10 Last administered on 02/10 02:11; Admin Dose 2 MG; Start 01/28/17 at 14:00 Ondansetron HCl/ Dextrose (Zofran Inj/D5W) 54 ml @ 108 mls/hr Q6H PRN IV NAUSEA AND/OR VOMITING; Start 01/31/17 at 12:00 Hydromorphone HCl (Dilaudid) 1 mg Q2H PRN IV PAIN LEVEL 6-10 Last administered on 02/09/17 22:28; Admin Dose 1 MG; Start 02/02/17 at 11:30 Diphenhydramine HCl (Benadryl) 25 mg Q6H PRN IV ITCHING Last administered on 17:19; Admin Dose 25 MG; Start 02/02/17 at 11:30 Acetaminophen (Tylenol Liquid) 650 mg Q4H PRN GTB PAIN AND OR ELEVATED TEMP Last administered on 02/06/17 16:19; Admin Dose 650 MG; Start 02/04/17 at 08:30 ; Status Future Hold Docusate Sodium 100 mg 100 mg BID NGT Last administered on 02/09/17 09:00; Admin Dose 100 MG; Start 02/05/17 at 09:00 Piperacillin Sod/ Tazobactam Sod 50 ml @ 200 mls/hr Q8 IVPB Last administered on 02/10/17 05:44; Admin Dose 200 MLS/HR; Start 02/05/17 at 14:00 Fat Emulsion Intravenous 250 ml @ 10 mls/hr Q24H IV Last administered on 21:05; Admin Dose 10 MLS/HR; Start 02/05/17 at 20:00 Total Parenteral Nutrition (Tpn) 1,000 ml @ 70 mls/hr [id number] IV Last administered on 02/09/17 03:04; Admin Dose 70 MLS/HR; Start 02/05/17 at 20:00 Furosemide (Lasix) 20 mg DAILY IV Last administered on 02/10/17 09:41; Admin Dose 20 MG; Start 02/07/17 at 11:00 Diagnostic Test (Pha) 1 ea 1 ea Q8 XX Last administered on 02/09/17 05:18; Admin Dose 1 EA; Start 02/07/17 at 22:00 Acetaminophen 100 ml @ 400 mls/hr Q6H PRN IVPB FEVER; Start 02/09/17 at 12:00 Ferric Sodium Gluconate Complex/ Sodium Chloride (Ferrlecit/NS) 110 ml @ 100 mls/hr Q24H IVPB Last administered on 02/10/17 11:50; Admin Dose 100 MLS/HR; Start 02/09/17 at 12:00; Stop 02/11/17 at 13:05 KENTRELL MACIAS 7, 2017 12:17
[2017-02-10] MEDS ORDERED: VANCOMYCIN IV PER PHARMACY XX SCH (12:30)
--- NOTE | 2017-02-10 13:54 | PN ---
DATE: 02/10/2017 INFECTIOUS DISEASE PROGRESS NOTE SUBJECTIVE: No events overnight. Patient is currently sleeping. She is going through episodes of restlessness. She is in no distress, still with low-grade fevers and tachycardia. VITAL SIGNS: T-max 100.4, T-current 99.5, pulse 115, respirations 26, blood pressure 137/63, satura tion 95% on nasal cannula. WBC 14.3, H and H 8.9 and 27.9, platelets 493, neutrophils 87.6. BUN 13, creatinine 0.56. ANTIMICROBIALS: The patient remains on Zosyn. DIAGNOSTICS: Abdominal and pelvis CT revealed fluid collection in the right side of the abdomen belinda suring 3 x 10 x 8 cm, consistent with probable abscess. CT of the chest revealed bilateral pulmonar y emboli. She also had evidence of severe right and mild left hydronephrosis with bilateral uretera l stents present and unchanged appearance of the kidneys. INDWELLINGS: The patient has triple lumen catheter and JPs, Cullen catheter. PHYSICAL EXAMINATION: GENERAL: This is a wasted, chronically ill-appearing, 56-year-old woman who is lethargic, sleeping, in no distress. HEENT: Head atraumatic, normocephalic. Sclerae icteric. Buccal mucosa dry. NECK: Supple. CHEST: Rise symmetrical. Breath sounds diminished at bases. HEART: S1, S2. ABDOMEN: Soft, bowel tones present. EXTREMITIES: With trace edema. ASSESSMENT: 1. Systemic inflammatory response syndrome with persistent leukocytosis and ongoing fevers secondar y to #2. 2. Intraabdominal abscess. 3. Bilateral pulmonary emboli. 4. Metastatic ovarian cancer, status post tumor debulking on 02/02/2017. 5. Bilateral hydronephrosis, status post JJ stent placement on 01/24/2017. 6. Status post alpha hemolytic streptococci urinary tract infection. 7. Cachexia. 8. Encephalopathy. PLAN: We are going to restart vancomycin and also start her on antifungal coverage. Continue prese nt care. Pending CT-guided abscess aspiration. The patient may need IVC filter. Follow recommenda tions of specialists. Dictated By: CARLOS SOLIZ EXECUTIVE CONSULTANT for DENODRE JAMISON MD NI/NTS Conf#: [id number] DID#: [id number]
[2017-02-10] MEDS ORDERED: CASPOFUNGIN 70 MG in SOD CHLORIDE 0.9% 250 ML IVPB ONE (14:00)
[2017-02-10] MEDS ORDERED: PROPOFOL 20 ML ONE (14:23)
[2017-02-10] MEDS ORDERED: PHENYLephrine (100 MCG/ML) 5ML SYG ONE (14:23)
[2017-02-10] MEDS ORDERED: EPHEDrine SULFATE 50 MG/5 ML SYG ONE (14:23)
[2017-02-10] MEDS ORDERED: LIDOCAINE 1% (MDV) 20 ML INJ ONE (14:28)
[2017-02-10] MEDS ORDERED: FENTAnyl 50 MCG/ML VIAL ONE (14:41)
--- NOTE | 2017-02-10 15:40 | CONS ---
Date/Time of Note Date/Time of Note DATE: 02/10/17 TIME: 15:39 Consult Date/Type/Reason Admit Date/Time Jan 22, 2017 at 14:12 Initial Consult Date 02/03/17 Type of Consultation: Pulmonary Ordering Provider: RAUL EUCEDA MD Subjective Patient remains comfortable. Objective Vital Signs Date Time Temp Pulse Resp B/P Pulse Ox O2 Delivery O2 Flow Rate FiO2 02/10/17 12:15 99.3 113 28 138/81 98 02/10/17 08:00 Nasal Cannula 6.0 02/07/17 08:00 30 Intake and Output 02/09/17 02/09/17 02/10/17 15:00 23:00 07:00 Intake Total 0 ml 50 ml 1530 ml Output Total 160 ml 275 ml 1780 ml Balance -160 ml -225 ml -250 ml Exam GENERAL: Chronically ill-appearing lady intermittent confusion VITAL SIGNS: per chart NECK: Supple. No JVD or lymphadenopathy. CARDIAC EXAM: S1, S2. No added sounds or murmurs. CHEST: Bilateral rales. ABDOMEN: Soft, nontender. No guarding or rebound. EXTREMITIES: No cyanosis, clubbing or edema. NEUROLOGIC: Generalized weakness. No focal deficits. Results/Medications Result Diagram: 02/10/17 1003 02/10/17 1004 Results 24 hrs Laboratory Tests Test 02/09/17 22:13 02/10/17 02:55 02/10/17 05:43 02/10/17 10:03 Bedside Glucose 123 126 Prothrombin Time 13.1 Prothrombin Time Ratio 1.0 INR International Normalized Ratio 0.99 Activated Partial Thromboplast Time 27.8 White Blood Count 14.3 #H Red Blood Count 3.22 #L Hemoglobin 8.9 #L Hematocrit 27.9 #L Mean Corpuscular Volume 86.6 Mean Corpuscular Hemoglobin 27.6 L Mean Corpuscular Hemoglobin Concent 31.9 L Red Cell Distribution Width 18.2 H Platelet Count 493 #H Mean Platelet Volume 12.5 H Neutrophils % 87.6 H Lymphocytes % 2.4 L Monocytes % 8.4 Eosinophils % 0.1 Basophils % 0.1 Nucleated Red Blood Cells % 2.4 H Neutrophils # 12.5 H Lymphocytes # 0.3 L Monocytes # 1.2 H Eosinophils # 0.0 Basophils # 0.0 Nucleated Red Blood Cells # 0.3 H Test 02/10/17 10:04 02/10/17 10:16 02/10/17 14:06 Activated Partial Thromboplast Time 31.7 Sodium Level 146 H Potassium Level 3.3 L Chloride Level 110 Carbon Dioxide Level 29 Anion Gap 10 Blood Urea Nitrogen 13 Creatinine 0.56 Glucose Level 119 Calcium Level 8.4 Lab Scanned Report BLOOD TRANSFUSION Bedside Glucose 120 Medications Current Medications Ondansetron HCl (Zofran Tab) 4 mg Q6H PRN PO NAUSEA AND/OR VOMITING; Start at 16:00 Acetaminophen (Tylenol Tab) 650 mg Q6H PRN PO PAIN LEVEL 1-3 OR FEVER Last administered on 02/06/17 23:54; Admin Dose 650 MG; Start 01/22/17 at 16:00; Status Future Hold Docusate Sodium (Colace) 100 mg Q12H PRN PO CONSTIPATION; Start 01/22/17 at 16 :00 Magnesium Hydroxide (Milk Of Mag) 30 ml DAILY PRN PO CONSTIPATION Last administered on 01/31/17 07:38; Admin Dose 30 ML; Start 01/22/17 at 16:00 Bisacodyl (Dulcolax) 5 mg DAILY PRN PO CONSTIPATION Last administered on 05:07; Admin Dose 5 MG; Start 01/22/17 at 16:00 Polyethylene Glycol (Miralax) 17 gm DAILY PO Last administered on 02/09/17 09: 00; Admin Dose 17 GM; Start 01/26/17 at 15:30 Sodium Biphosphate/ Sodium Phosphate (Fleet Enema) 133 ml DAILY PRN [place] CONSTIPATION Last administered on 01/27/17 06:17; Admin Dose 133 ML; Start at 20:30 Tolterodine Tartrate (Detrol La) 4 mg DAILY PO Last administered on 02/09/17 09:00; Admin Dose 4 MG; Start 01/27/17 at 15:30 Morphine Sulfate 2 mg 2 mg Q2H PRN IV PAIN LEVEL 7-10 Last administered on 02/10 02:11; Admin Dose 2 MG; Start 01/28/17 at 14:00 Ondansetron HCl/ Dextrose (Zofran Inj/D5W) 54 ml @ 108 mls/hr Q6H PRN IV NAUSEA AND/OR VOMITING; Start 01/31/17 at 12:00 Hydromorphone HCl (Dilaudid) 1 mg Q2H PRN IV PAIN LEVEL 6-10 Last administered on 02/09/17 22:28; Admin Dose 1 MG; Start 02/02/17 at 11:30 Diphenhydramine HCl (Benadryl) 25 mg Q6H PRN IV ITCHING Last administered on 17:19; Admin Dose 25 MG; Start 02/02/17 at 11:30 Acetaminophen (Tylenol Liquid) 650 mg Q4H PRN GTB PAIN AND OR ELEVATED TEMP Last administered on 02/06/17 16:19; Admin Dose 650 MG; Start 02/04/17 at 08:30 ; Status Future Hold Docusate Sodium 100 mg 100 mg BID NGT Last administered on 02/09/17 09:00; Admin Dose 100 MG; Start 02/05/17 at 09:00 Piperacillin Sod/ Tazobactam Sod 50 ml @ 200 mls/hr Q8 IVPB Last administered on 02/10/17 13:44; Admin Dose 200 MLS/HR; Start 02/05/17 at 14:00 Fat Emulsion Intravenous 250 ml @ 10 mls/hr Q24H IV Last administered on 21:05; Admin Dose 10 MLS/HR; Start 02/05/17 at 20:00 Total Parenteral Nutrition (Tpn) 1,000 ml @ 70 mls/hr [id number] IV Last administered on 02/10/17 12:49; Admin Dose 70 MLS/HR; Start 02/05/17 at 20:00 Furosemide (Lasix) 20 mg DAILY IV Last administered on 02/10/17 09:41; Admin Dose 20 MG; Start 02/07/17 at 11:00 Diagnostic Test (Pha) 1 ea 1 ea Q8 XX Last administered on 02/09/17 05:18; Admin Dose 1 EA; Start 02/07/17 at 22:00 Acetaminophen 100 ml @ 400 mls/hr Q6H PRN IVPB FEVER; Start 02/09/17 at 12:00 Ferric Sodium Gluconate Complex/ Sodium Chloride (Ferrlecit/NS) 110 ml @ 100 mls/hr Q24H IVPB Last administered on 02/10/17 11:50; Admin Dose 100 MLS/HR; Start 02/09/17 at 12:00; Stop 02/11/17 at 13:05 Lorazepam 1 mg 1 mg Q2 PRN IV AGITATION Last administered on 02/10/17t 13:01; Admin Dose 1 MG; Start 02/10/17 at 12:30 Caspofungin 50 mg/ Sodium Chloride 250 ml @ 250 mls/hr Q24H IVPB ; Start at 14:00 Vancomycin HCl/ Sodium Chloride (Vancocin/NS) 250 ml @ 83.333 mls/ hr Q12H IVPB ; Start 02/10/17 at 14:00 Assessment/Plan Chief Complaint/Hosp Course Assessment 1. Hypoxemic respiratory failure with alveolar hypoventilation neuromuscular weakness, now extubated. 2. Recent diagnosis of stage IV ovarian cancer status post hysterectomy with bilateral salpingo-oophorectomy 3. Postop ileus slowly resolving 4. Status post septic shock. 5. Resolved leukocytosis 6. Postop delirium 7. Postop anemia hemoglobin on the low end. Plan 1. Avoid sedatives 2. Aspiration precautions. 3. Continue postop surgical recommendations 4. DVT GI prophylaxis 5. Continues TPN 6. Encourage out of bed PT eval. 7. Iron studies Ferrlecit. Problems: [facility] Feb 10, 2017 15:40
[2017-02-10] MEDS ORDERED: METOCLOPRAMIDE 10 MG INJ IV PRN (16:30)
[2017-02-10] MEDS ORDERED: HYDROmorphONE (0.2 MG/ML) 10ML SYG IV PRN ×3 (16:30)
[2017-02-10] MEDS ORDERED: ONDANSETRON 4 MG INJ IV PRN (16:30)
[2017-02-10] MEDS ORDERED: hydrALAzine 20 MG INJ IV PRN (16:30)
[2017-02-10] MEDS ORDERED: EPHEDrine SULFATE 50 MG/5 ML SYG IV PRN (16:30)
[2017-02-10] MEDS: VANCOMYCIN 1.5 GM in SOD CHLORIDE 0.9% 250 ML IVPB SCH (16:43)
--- NOTE | 2017-02-10 17:11 | RADRPT ---
PROCEDURE: CT guided abdominal fluid collection drainage. CLINICAL INDICATION: Right upper quadrant abdominal fluid collection. TECHNIQUE: Informed consent was obtained. The procedure, risks, benefits, complications and alternatives were explained to the patient or the patient's family. Risks including bleeding and infection were explai srinivas. The patient or the patient's family understood and was willing to proceed. A procedural pause was performed. The patient's name, date of , and procedure to be performed were verified. One or more of the following dose reduction techniques were used: Automated exposure control, adjustmen t of the mA and/or kV according to patient size, use of iterative reconstruction technique. Using local anesthetic, sterile technique and CT guidance, a 19-gauge Yueh needle was advanced into the fluid collection in the right sided abdomen. CT scan was performed confirming position. Cloudy serous fluid was also aspirated confirming position. The needle from the Yueh catheter was removed , leaving the Yueh catheter in place within the fluid collection. A 0.035-inch Amplatz guidewire wa s advanced through the Yueh catheter into the fluid collection. The Yueh catheter was removed. The tract was dilated to 8-Azerbaijani. An 8.5 Azerbaijani multipurpose drainage catheter was advanced over the guidewire into the fluid collection. The guidewire was removed. Additional scanning was performed confirming position. The catheter was then sutured to the patient's skin with 2-0 silk. Approximat mitzy 50 ml of cloudy serous fluid was aspirated. The catheter was connected to a drainage bag. A dr essing was applied. The patient tolerated procedure well. COMPARISON: None. FINDINGS: Final images demonstrate the drainage catheter in satisfactory position within the fluid collection. IMPRESSION: 1. Successful CT guided abdominal fluid collection drainage. RPTAT: QQ .Eliud Yoder MD, MD Date Time Electronically viewed and signed by .Eliud Yoder MD, MD on 02/10/2017 17:11 .R/
[2017-02-10] MEDS: FAT EMULSION 20% 250 ML IV SCH (20:10)
[2017-02-11] VITALS (12 sets, daily range): BP systolic 121–137; BP diastolic 69–77; PULSE 88–104; RESP 20–22
[2017-02-11] MEDS: HEPARIN 1000 UNITS/ML 10 ML INJ IV PRN ×2 (01:41→09:17)
[2017-02-11] MEDS: HEPARIN 25000 UNITS/250 ML 250 ML IV SCH ×3 (01:42→22:43)
[2017-02-11] MEDS: VANCOMYCIN 1.5 GM in SOD CHLORIDE 0.9% 250 ML IVPB SCH ×2 (01:49→15:10)
[2017-02-11] MEDS: morphine 2 MG INJ IV PRN ×3 (01:59→13:39)
[2017-02-11] MEDS: TPN 1,000 ML IV SCH ×2 (03:46→19:49)
[2017-02-11] MEDS: PIPER-TAZO 3.375 GM IV (PMX) 50 ML IVPB SCH ×3 (05:23→21:22)
[2017-02-11] MEDS: ACCU-CHEK XX SCH ×3 (05:23→22:56)
[2017-02-11 06:00] LABS: ABNORMAL IP MESSAGE 1; BASOPHILS % 0.2 % (0.0-2.0); EOSINOPHILS # 0.1 10^3/ul (0.0-0.5); EOSINOPHILS % 0.7 % (0.0-7.0); HEMOGLOBIN 8.5 g/dl (12.0-16.0); LYMPHOCYTES # 0.4 10^3/ul (0.8-2.9); LYMPHOCYTES % 3.4 % (15.0-51.0); MEAN CORPUSCULAR HEMOGLOBIN 27.2 pg (29.0-33.0); MEAN CORPUSCULAR HGB CONC 31.5 g/dl (32.0-37.0); MEAN CORPUSCULAR VOLUME 86.5 fl (82.0-101.0); MEAN PLATELET VOLUME 12.4 fl (7.4-10.4); MONOCYTE # 1.4 10^3/ul (0.3-0.9); MONOCYTES % 10.9 % (0.0-11.0); NEUTROPHILS % 83.7 % (39.0-77.0); NUCLEATED RED BLOOD CELLS # 0.3 10^3/ul (0.0-0.0); NUCLEATED RED BLOOD CELLS% 2.1 /100WBC (0.0-0.0); PLATELET COUNT 593 10^3/UL (140-415); RED BLOOD COUNT 3.12 10^6/ul (4.20-5.40); RED CELL DISTRIBUTION WIDTH 18.1 % (11.5-14.5); WHITE BLOOD COUNT 13.1 10^3/ul (4.8-10.8)
[2017-02-11 06:02] LABS: POSITIVE DIFF @See below
[2017-02-11 06:29] LABS: CREATININE 0.53 mg/dl (0.44-1.00)
[2017-02-11] MEDS: DOCUSATE SODIUM 10 MG/ML (10ML CUP) NGT SCH ×2 (08:45→21:22)
[2017-02-11] MEDS: POLYETHYLENE GLYCOL 17 GM PACKET PO SCH (08:45)
[2017-02-11] MEDS: TOLTERODINE (SR) 4 MG CAP PO SCH (08:45)
[2017-02-11] MEDS: FUROSEMIDE 20 MG INJ IV SCH (09:03)
--- NOTE | 2017-02-11 10:08 | CONS ---
Date/Time of Note Date/Time of Note DATE: 02/11/17 TIME: 10:06 Consult Date/Type/Reason Admit Date/Time Jan 22, 2017 at 14:12 Initial Consult Date 02/03/17 Type of Consultation: Pulmonary Ordering Provider: RAUL EUCEDA MD Subjective Status post CT-guided drainage of right upper quadrant fluid collection. Patient stable post procedure. Objective Vital Signs Date Time Temp Pulse Resp B/P Pulse Ox O2 Delivery O2 Flow Rate FiO2 02/11/17 09:07 104 02/11/17 08:08 3.0 02/11/17 07:41 98.9 20 125/74 99 02/10/17 20:00 Nasal Cannula 02/07/17 08:00 30 Intake and Output 02/10/17 02/10/17 02/11/17 15:00 23:00 07:00 Intake Total 810 ml 250 ml 1292.5 ml Output Total 2542 ml 1590 ml Balance 810 ml -2292 ml -297.5 ml Exam GENERAL: Chronically ill-appearing lady intermittent confusion VITAL SIGNS: per chart NECK: Supple. No JVD or lymphadenopathy. CARDIAC EXAM: S1, S2. No added sounds or murmurs. CHEST: Bilateral rales. ABDOMEN: Soft, nontender. No guarding or rebound. EXTREMITIES: No cyanosis, clubbing or edema. NEUROLOGIC: Generalized weakness. No focal deficits. Results/Medications Result Diagram: 02/11/17 0534 02/11/17 0534 Results 24 hrs Laboratory Tests Test 02/10/17 10:16 02/10/17 14:06 02/10/17 23:00 02/11/17 00:27 Lab Scanned Report BLOOD TRANSFUSION Bedside Glucose 120 122 Activated Partial Thromboplast Time 40.1 H Test 02/11/17 05:19 02/11/17 05:34 02/11/17 07:38 02/11/17 08:03 Bedside Glucose 116 White Blood Count 13.1 H Red Blood Count 3.12 L Hemoglobin 8.5 L Hematocrit 27.0 L Mean Corpuscular Volume 86.5 Mean Corpuscular Hemoglobin 27.2 L Mean Corpuscular Hemoglobin Concent 31.5 L Red Cell Distribution Width 18.1 H Platelet Count 593 #H Mean Platelet Volume 12.4 H Neutrophils % 83.7 H Lymphocytes % 3.4 L Monocytes % 10.9 Eosinophils % 0.7 Basophils % 0.2 Nucleated Red Blood Cells % 2.1 H Neutrophils # 11.0 H Lymphocytes # 0.4 L Monocytes # 1.4 H Eosinophils # 0.1 Basophils # 0.0 Nucleated Red Blood Cells # 0.3 H Sodium Level 148 H Potassium Level 3.0 L Chloride Level 110 Carbon Dioxide Level 32 H Anion Gap 9 Blood Urea Nitrogen 14 Creatinine 0.53 Glucose Level 113 Calcium Level 8.0 L Lab Scanned Report BLOOD TRANSFUSION Activated Partial Thromboplast Time 44.5 H Medications Current Medications Ondansetron HCl (Zofran Tab) 4 mg Q6H PRN PO NAUSEA AND/OR VOMITING; Start at 16:00 Acetaminophen (Tylenol Tab) 650 mg Q6H PRN PO PAIN LEVEL 1-3 OR FEVER Last administered on 02/06/17 23:54; Admin Dose 650 MG; Start 01/22/17 at 16:00; Status Future Hold Docusate Sodium (Colace) 100 mg Q12H PRN PO CONSTIPATION; Start 01/22/17 at 16 :00 Magnesium Hydroxide (Milk Of Mag) 30 ml DAILY PRN PO CONSTIPATION Last administered on 01/31/17 07:38; Admin Dose 30 ML; Start 01/22/17 at 16:00 Bisacodyl (Dulcolax) 5 mg DAILY PRN PO CONSTIPATION Last administered on 05:07; Admin Dose 5 MG; Start 01/22/17 at 16:00 Polyethylene Glycol (Miralax) 17 gm DAILY PO Last administered on 02/09/17 09: 00; Admin Dose 17 GM; Start 01/26/17 at 15:30 Sodium Biphosphate/ Sodium Phosphate (Fleet Enema) 133 ml DAILY PRN [place] CONSTIPATION Last administered on 01/27/17 06:17; Admin Dose 133 ML; Start at 20:30 Tolterodine Tartrate (Detrol La) 4 mg DAILY PO Last administered on 02/09/17 09:00; Admin Dose 4 MG; Start 01/27/17 at 15:30 Morphine Sulfate 2 mg 2 mg Q2H PRN IV PAIN LEVEL 7-10 Last administered on 02/11 05:02; Admin Dose 2 MG; Start 01/28/17 at 14:00 Ondansetron HCl/ Dextrose (Zofran Inj/D5W) 54 ml @ 108 mls/hr Q6H PRN IV NAUSEA AND/OR VOMITING; Start 01/31/17 at 12:00 Hydromorphone HCl (Dilaudid) 1 mg Q2H PRN IV PAIN LEVEL 6-10 Last administered on 02/09/17 22:28; Admin Dose 1 MG; Start 02/02/17 at 11:30 Diphenhydramine HCl (Benadryl) 25 mg Q6H PRN IV ITCHING Last administered on 17:19; Admin Dose 25 MG; Start 02/02/17 at 11:30 Acetaminophen (Tylenol Liquid) 650 mg Q4H PRN GTB PAIN AND OR ELEVATED TEMP Last administered on 02/06/17 16:19; Admin Dose 650 MG; Start 02/04/17 at 08:30 ; Status Future Hold Docusate Sodium 100 mg 100 mg BID NGT Last administered on 02/09/17 09:00; Admin Dose 100 MG; Start 02/05/17 at 09:00 Piperacillin Sod/ Tazobactam Sod 50 ml @ 200 mls/hr Q8 IVPB Last administered on 02/11/17 05:23; Admin Dose 200 MLS/HR; Start 02/05/17 at 14:00 Fat Emulsion Intravenous 250 ml @ 10 mls/hr Q24H IV Last administered on 20:10; Admin Dose 10 MLS/HR; Start 02/05/17 at 20:00 Total Parenteral Nutrition (Tpn) 1,000 ml @ 70 mls/hr [id number] IV Last administered on 02/11/17 03:46; Admin Dose 70 MLS/HR; Start 02/05/17 at 20:00 Furosemide (Lasix) 20 mg DAILY IV Last administered on 02/11/17 09:03; Admin Dose 20 MG; Start 02/07/17 at 11:00 Diagnostic Test (Pha) 1 ea 1 ea Q8 XX Last administered on 02/09/17 05:18; Admin Dose 1 EA; Start 02/07/17 at 22:00 Acetaminophen 100 ml @ 400 mls/hr Q6H PRN IVPB FEVER; Start 02/09/17 at 12:00 Ferric Sodium Gluconate Complex/ Sodium Chloride (Ferrlecit/NS) 110 ml @ 100 mls/hr Q24H IVPB Last administered on 02/10/17 11:50; Admin Dose 100 MLS/HR; Start 02/09/17 at 12:00; Stop 02/11/17 at 13:05 Lorazepam 1 mg 1 mg Q2 PRN IV AGITATION Last administered on 02/10/17 13:01; Admin Dose 1 MG; Start 02/10/17 at 12:30 Caspofungin 50 mg/ Sodium Chloride 250 ml @ 250 mls/hr Q24H IVPB ; Start at 14:00 Vancomycin HCl/ Sodium Chloride (Vancocin/NS) 250 ml @ 83.333 mls/ hr Q12H IVPB Last administered on 02/11/17 01:49; Admin Dose 83.333 MLS/HR; Start 02/10/17 at 14:00 Assessment/Plan Chief Complaint/Hosp Course Assessment 1. Hypoxemic respiratory failure with alveolar hypoventilation neuromuscular weakness, now extubated. 2. Recent diagnosis of stage IV ovarian cancer status post hysterectomy with bilateral salpingo-oophorectomy 3. Postop ileus slowly resolving 4. Status post septic shock. 5. Resolved leukocytosis 6. Postop delirium 7. Postop anemia hemoglobin on the low end. 8. Hypokalemia and hypernatremia Plan 1. Avoid sedatives 2. Aspiration precautions. 3. Continue postop surgical recommendations 4. DVT GI prophylaxis 5. Continues TPN 6. Status post CT-guided drainage of right upper quadrant fluid collection. 7. Iron studies Ferrlecit. 8. Correct electrolytes. Problems: SER[facility] Feb 11, 2017 10:07
--- NOTE | 2017-02-11 10:09 | CONS ---
Date/Time of Note Date/Time of Note DATE: 02/10/17 TIME: 10:06 VK LE Assessment/Plan Assessment/Plan Chief Complaint/Hosp Course ADVANCED OVARIAN CANCER WITH MALIGNANT ASCITES AND PERITONEAL carcinomatosis Large conglomerate pelvic mass inseparable from the uterus, sigmoid colon and rectum containing clumps of calcification suspicious for calcified fibroids and containing cystic areas. Large amount of free intraperitoneal fluid measuring 25 HU with caking of the omentum compatible with carcinomatosis. Centralization of bowel without evidence of bowel obstruction. Moderately severe right hydronephrosis and hydroureter to the level of the pelvic mass. There is moderate left pelvocaliectasis without ureteral dilatation. The bladder is quite distended with urine. POST cystoscopy and insertion of bilateral JJ stents CT CHEST - EDOUARD, EXCEPT SMALL L PLEURAL EFFUSION CA 125- 337 POST debulking surgery PATH- [id number] High grade serous carcinoma. PLAN- CHEMO WHEN CLEARED BY GYNEONC ANEMIA, MICROCYTOSIS COMPLEX ANEMIA W-UP= + COMPONENT ACD DROP H/H POSTOP SERIAL H/H PRBC NEEDED PER STANDING ORDERS D/W RN LEUKOCYTOSIS REACTIVE, PARTIALLY 2 TO Splenectomy PELVIC ABSCESS- POST DRAINAGE malignant ascites sp para 10.19. hydro AUR from ascites, sp ureteral stenting. ILEUS NG TPN Problems: Consultation Date/Type/Reason Admit Date/Time Jan 22, 2017 at 14:12 Initial Consult Date 01/27/17 Type of Consultation: [facility] Referring Provider: RAUL EUCEDA MD 24 HR Interval Summary Free Text/Dictation ALL NOTED POST CT DRAINAGE OF PELVIC ABSCESS WEAK Exam/Review of Systems Vital Signs Vitals Vital Signs Date Time Temp Pulse Resp B/P Pulse Ox O2 Delivery O2 Flow Rate FiO2 02/11/17 09:07 104 02/11/17 08:08 3.0 02/11/17 07:41 98.9 20 125/74 99 02/10/17 20:00 Nasal Cannula 02/07/17 08:00 30 Intake and Output 02/10/17 02/10/17 02/11/17 15:00 23:00 07:00 Intake Total 810 ml 250 ml 1292.5 ml Output Total 2542 ml 1590 ml Balance 810 ml -2292 ml -297.5 ml Exam GENERAL: Chronically ill-appearing lady intermittent confusion VITAL SIGNS: per chart NECK: Supple. No JVD or lymphadenopathy. CARDIAC EXAM: S1, S2. No added sounds or murmurs. CHEST: Bilateral rales. ABDOMEN: Soft, nontender. No guarding or rebound., 4 DRAINS EXTREMITIES: No cyanosis, clubbing or edema. NEUROLOGIC: Generalized weakness. No focal deficits. Results Result Diagram: 02/11/17 0534 02/11/17 0534 Results 24 hrs Laboratory Tests Test 02/10/17 10:16 02/10/17 14:06 02/10/17 23:00 02/11/17 00:27 Lab Scanned Report BLOOD TRANSFUSION Bedside Glucose 120 122 Activated Partial Thromboplast Time 40.1 H Test 02/11/17 05:19 02/11/17 05:34 02/11/17 07:38 02/11/17 08:03 Bedside Glucose 116 White Blood Count 13.1 H Red Blood Count 3.12 L Hemoglobin 8.5 L Hematocrit 27.0 L Mean Corpuscular Volume 86.5 Mean Corpuscular Hemoglobin 27.2 L Mean Corpuscular Hemoglobin Concent 31.5 L Red Cell Distribution Width 18.1 H Platelet Count 593 #H Mean Platelet Volume 12.4 H Neutrophils % 83.7 H Lymphocytes % 3.4 L Monocytes % 10.9 Eosinophils % 0.7 Basophils % 0.2 Nucleated Red Blood Cells % 2.1 H Neutrophils # 11.0 H Lymphocytes # 0.4 L Monocytes # 1.4 H Eosinophils # 0.1 Basophils # 0.0 Nucleated Red Blood Cells # 0.3 H Sodium Level 148 H Potassium Level 3.0 L Chloride Level 110 Carbon Dioxide Level 32 H Anion Gap 9 Blood Urea Nitrogen 14 Creatinine 0.53 Glucose Level 113 Calcium Level 8.0 L Lab Scanned Report BLOOD TRANSFUSION Activated Partial Thromboplast Time 44.5 H Medications Medications Current Medications Ondansetron HCl (Zofran Tab) 4 mg Q6H PRN PO NAUSEA AND/OR VOMITING; Start at 16:00 Acetaminophen (Tylenol Tab) 650 mg Q6H PRN PO PAIN LEVEL 1-3 OR FEVER Last administered on 02/06/17t 23:54; Admin Dose 650 MG; Start 01/22/17 at 16:00; Status Future Hold Docusate Sodium (Colace) 100 mg Q12H PRN PO CONSTIPATION; Start 01/22/17 at 16 :00 Magnesium Hydroxide (Milk Of Mag) 30 ml DAILY PRN PO CONSTIPATION Last administered on 01/31/17 07:38; Admin Dose 30 ML; Start 01/22/17 at 16:00 Bisacodyl (Dulcolax) 5 mg DAILY PRN PO CONSTIPATION Last administered on 05:07; Admin Dose 5 MG; Start 01/22/17 at 16:00 Polyethylene Glycol (Miralax) 17 gm DAILY PO Last administered on 02/09/17 09: 00; Admin Dose 17 GM; Start 01/26/17 at 15:30 Sodium Biphosphate/ Sodium Phosphate (Fleet Enema) 133 ml DAILY PRN [place] CONSTIPATION Last administered on 01/27/17 06:17; Admin Dose 133 ML; Start at 20:30 Tolterodine Tartrate (Detrol La) 4 mg DAILY PO Last administered on 02/09/17 09:00; Admin Dose 4 MG; Start 01/27/17 at 15:30 Morphine Sulfate 2 mg 2 mg Q2H PRN IV PAIN LEVEL 7-10 Last administered on 02/11 05:02; Admin Dose 2 MG; Start 01/28/17 at 14:00 Ondansetron HCl/ Dextrose (Zofran Inj/D5W) 54 ml @ 108 mls/hr Q6H PRN IV NAUSEA AND/OR VOMITING; Start 01/31/17 at 12:00 Hydromorphone HCl (Dilaudid) 1 mg Q2H PRN IV PAIN LEVEL 6-10 Last administered on 02/09/17 22:28; Admin Dose 1 MG; Start 02/02/17 at 11:30 Diphenhydramine HCl (Benadryl) 25 mg Q6H PRN IV ITCHING Last administered on 17:19; Admin Dose 25 MG; Start 02/02/17 at 11:30 Acetaminophen (Tylenol Liquid) 650 mg Q4H PRN GTB PAIN AND OR ELEVATED TEMP Last administered on 02/06/17 16:19; Admin Dose 650 MG; Start 02/04/17 at 08:30 ; Status Future Hold Docusate Sodium 100 mg 100 mg BID NGT Last administered on 02/09/17 09:00; Admin Dose 100 MG; Start 02/05/17 at 09:00 Piperacillin Sod/ Tazobactam Sod 50 ml @ 200 mls/hr Q8 IVPB Last administered on 02/11/17 05:23; Admin Dose 200 MLS/HR; Start 02/05/17 at 14:00 Fat Emulsion Intravenous 250 ml @ 10 mls/hr Q24H IV Last administered on 20:10; Admin Dose 10 MLS/HR; Start 02/05/17 at 20:00 Total Parenteral Nutrition (Tpn) 1,000 ml @ 70 mls/hr [id number] IV Last administered on 02/11/17 03:46; Admin Dose 70 MLS/HR; Start 02/05/17 at 20:00 Furosemide (Lasix) 20 mg DAILY IV Last administered on 02/11/17 09:03; Admin Dose 20 MG; Start 02/07/17 at 11:00 Diagnostic Test (Pha) 1 ea 1 ea Q8 XX Last administered on 02/09/17 05:18; Admin Dose 1 EA; Start 02/07/17 at 22:00 Acetaminophen 100 ml @ 400 mls/hr Q6H PRN IVPB FEVER; Start 02/09/17 at 12:00 Ferric Sodium Gluconate Complex/ Sodium Chloride (Ferrlecit/NS) 110 ml @ 100 mls/hr Q24H IVPB Last administered on 02/10/17 11:50; Admin Dose 100 MLS/HR; Start 02/09/17 at 12:00; Stop 02/11/17 at 13:05 Lorazepam 1 mg 1 mg Q2 PRN IV AGITATION Last administered on 02/10/17 13:01; Admin Dose 1 MG; Start 02/10/17 at 12:30 Caspofungin 50 mg/ Sodium Chloride 250 ml @ 250 mls/hr Q24H IVPB ; Start at 14:00 Vancomycin HCl/ Sodium Chloride (Vancocin/NS) 250 ml @ 83.333 mls/ hr Q12H IVPB Last administered on 02/11/17 01:49; Admin Dose 83.333 MLS/HR; Start 02/10/17 at 14:00 RAMIREZ YBARRA MD Feb 11, 2017 10:09
[2017-02-11] MEDS: SOD FERRIC GLUC COMPLX 125 MG in SOD CHLORIDE 0.9% 100 ML IVPB SCH (12:04)
[2017-02-11] MEDS: CASPOFUNGIN 50 MG in SOD CHLORIDE 0.9% 250 ML IVPB SCH (14:08)
--- NOTE | 2017-02-11 14:08 | PN ---
Date/Time of Note Date/Time of Note DATE: 02/11/17 TIME: 14:05 Assessment/Plan VTE Prophylaxis VTE Prophylaxis Intervention: heparin Lines/Catheters IV Catheter Type (from Rust): Central Line Central line still needed: Yes Urinary Cath still in place: Yes Reason Cath still needed: urinary retention Assessment/Plan Chief Complaint/Hosp Course Assessment/Plan: 56 yo F with known stage 4 ovarian Ca here admitted for abd pain from malignant ascites sp para 10.19, sp ureteral stenting as well sp debulking surgery on February 03. 1. 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 Empiric abx started 02.05 for fever, urine cultures negative, CXR without focal consolidation. respiratory culture with NRF. + blood cultures as well, now with bilateral pulmonary embolisms. - Continue pain medications, TPN for now as apparently patient failed speech therapy eval this morning, continue abx as per ID - Follow-up gynecologic onc, pulm, and heme onc recommendations - f/u PT/OT evals -Again, for CT-guided drainage of abdominal abscess, follow-up culture results, continue antibiotics -For bilateral pulmonary embolisms, continue heparin drip, also planning for IVC filter placement in 24 hours, this has been ordered, pending. 2. subclinical hypothyroid: outpatient f/u 3. Low hemoglobin: Patient received blood transfusion 2 days ago. Hemoglobin stable presently -Continue to monitor for now 4. Hypernatremia: Mildly elevated (148) -We will add D5W IV fluids for 12 hours, recheck BMP in the a.m. Problems: Subjective 24 Hr Interval Summary Free Text/Dictation Patient had CT-guided aspiration of abdominal fluid collection performed yesterday, IVC filter placement rescheduled for tomorrow. Presently on heparin drip for pulmonary embolisms. No acute events overnight. Exam/Review of Systems Vital Signs Vitals Vital Signs Date Time Temp Pulse Resp B/P Pulse Ox O2 Delivery O2 Flow Rate FiO2 02/11/17 12:30 90 02/11/17 12:25 97.7 22 137/77 97 02/11/17 08:08 3.0 02/11/17 08:00 Nasal Cannula 02/07/17 08:00 30 Intake and Output 02/10/17 02/10/17 02/11/17 15:00 23:00 07:00 Intake Total 810 ml 250 ml 1292.5 ml Output Total 2542 ml 1590 ml Balance 810 ml -2292 ml -297.5 ml Exam Gen: still lethargic, opens eyes occasionally HEENT: PERRL, EOMI, anicteric Neck: Trach midline Respiratory: Clear anterior, some diminished BLL Cardiovascular: NSR on tele, radial pulses 2+ bilaterally Gastrointestinal: Soft, bilateral J/P drains Extremities: Warm, no cyanosis, trace edema Neurological: No focal deficits Results Result Diagram: 02/11/17 0534 02/11/17 0534 Results 24 hrs Laboratory Tests Test 02/10/17 14:06 02/10/17 23:00 02/11/17 00:27 02/11/17 05:19 Bedside Glucose 120 122 116 Activated Partial Thromboplast Time 40.1 H Test 02/11/17 05:34 02/11/17 07:38 02/11/17 08:03 White Blood Count 13.1 H Red Blood Count 3.12 L Hemoglobin 8.5 L Hematocrit 27.0 L Mean Corpuscular Volume 86.5 Mean Corpuscular Hemoglobin 27.2 L Mean Corpuscular Hemoglobin Concent 31.5 L Red Cell Distribution Width 18.1 H Platelet Count 593 #H Mean Platelet Volume 12.4 H Neutrophils % 83.7 H Lymphocytes % 3.4 L Monocytes % 10.9 Eosinophils % 0.7 Basophils % 0.2 Nucleated Red Blood Cells % 2.1 H Neutrophils # 11.0 H Lymphocytes # 0.4 L Monocytes # 1.4 H Eosinophils # 0.1 Basophils # 0.0 Nucleated Red Blood Cells # 0.3 H Sodium Level 148 H Potassium Level 3.0 L Chloride Level 110 Carbon Dioxide Level 32 H Anion Gap 9 Blood Urea Nitrogen 14 Creatinine 0.53 Glucose Level 113 Calcium Level 8.0 L Lab Scanned Report BLOOD TRANSFUSION Activated Partial Thromboplast Time 44.5 H Medications Medications Current Medications Ondansetron HCl (Zofran Tab) 4 mg Q6H PRN PO NAUSEA AND/OR VOMITING; Start at 16:00 Acetaminophen (Tylenol Tab) 650 mg Q6H PRN PO PAIN LEVEL 1-3 OR FEVER Last administered on 02/06/17 23:54; Admin Dose 650 MG; Start 01/22/17 at 16:00; Status Future Hold Docusate Sodium (Colace) 100 mg Q12H PRN PO CONSTIPATION; Start 01/22/17 at 16 :00 Magnesium Hydroxide (Milk Of Mag) 30 ml DAILY PRN PO CONSTIPATION Last administered on 01/31/17 07:38; Admin Dose 30 ML; Start 01/22/17 at 16:00 Bisacodyl (Dulcolax) 5 mg DAILY PRN PO CONSTIPATION Last administered on 05:07; Admin Dose 5 MG; Start 01/22/17 at 16:00 Polyethylene Glycol (Miralax) 17 gm DAILY PO Last administered on 02/09/17 09: 00; Admin Dose 17 GM; Start 01/26/17 at 15:30 Sodium Biphosphate/ Sodium Phosphate (Fleet Enema) 133 ml DAILY PRN DC CONSTIPATION Last administered on 01/27/17 06:17; Admin Dose 133 ML; Start at 20:30 Tolterodine Tartrate (Detrol La) 4 mg DAILY PO Last administered on 02/09/17 09:00; Admin Dose 4 MG; Start 01/27/17 at 15:30 Morphine Sulfate 2 mg 2 mg Q2H PRN IV PAIN LEVEL 7-10 Last administered on 02/11 13:39; Admin Dose 2 MG; Start 01/28/17 at 14:00 Ondansetron HCl/ Dextrose (Zofran Inj/D5W) 54 ml @ 108 mls/hr Q6H PRN IV NAUSEA AND/OR VOMITING; Start 01/31/17 at 12:00 Hydromorphone HCl (Dilaudid) 1 mg Q2H PRN IV PAIN LEVEL 6-10 Last administered on 02/09/17 22:28; Admin Dose 1 MG; Start 02/02/17 at 11:30 Diphenhydramine HCl (Benadryl) 25 mg Q6H PRN IV ITCHING Last administered on 17:19; Admin Dose 25 MG; Start 02/02/17 at 11:30 Acetaminophen (Tylenol Liquid) 650 mg Q4H PRN GTB PAIN AND OR ELEVATED TEMP Last administered on 02/06/17 16:19; Admin Dose 650 MG; Start 02/04/17 at 08:30 ; Status Future Hold Docusate Sodium 100 mg 100 mg BID NGT Last administered on 02/09/17 09:00; Admin Dose 100 MG; Start 02/05/17 at 09:00 Piperacillin Sod/ Tazobactam Sod 50 ml @ 200 mls/hr Q8 IVPB Last administered on 02/11/17 13:34; Admin Dose 200 MLS/HR; Start 02/05/17 at 14:00 Fat Emulsion Intravenous 250 ml @ 10 mls/hr Q24H IV Last administered on 20:10; Admin Dose 10 MLS/HR; Start 02/05/17 at 20:00 Total Parenteral Nutrition (Tpn) 1,000 ml @ 70 mls/hr [id number] IV Last administered on 02/11/17 03:46; Admin Dose 70 MLS/HR; Start 02/05/17 at 20:00 Furosemide (Lasix) 20 mg DAILY IV Last administered on 02/11/17 09:03; Admin Dose 20 MG; Start 02/07/17 at 11:00 Diagnostic Test (Pha) 1 ea 1 ea Q8 XX Last administered on 02/09/17 05:18; Admin Dose 1 EA; Start 02/07/17 at 22:00 Acetaminophen (Ofirmev 1000mg/ 100ml Iv) 100 ml @ 400 mls/hr Q6H PRN IVPB FEVER; Start 02/09/17 at 12:00 Lorazepam 1 mg 1 mg Q2 PRN IV AGITATION Last administered on 02/10/17 13:01; Admin Dose 1 MG; Start 02/10/17 at 12:30 Caspofungin 50 mg/ Sodium Chloride 250 ml @ 250 mls/hr Q24H IVPB ; Start at 14:00 Vancomycin HCl/ Sodium Chloride (Vancocin/NS) 250 ml @ 83.333 mls/ hr Q12H IVPB Last administered on 02/11/17 01:49; Admin Dose 83.333 MLS/HR; Start 02/10/17 at 14:00 Miscellaneous Information (*Rx Drug Level Order Reminder*) VANCOMYCIN TROUGH AT 0100 ONCE ONCE XX ; Start 02/12/17 at 01:00; Stop 02/12/17 at 01:01 KENTRELL MACIAS Feb 11, 2017 14:08
--- NOTE | 2017-02-11 14:10 | CONS ---
Date/Time of Note Date/Time of Note DATE: 02/11/17 TIME: 14:08 Assessment/Plan Assessment/Plan Chief Complaint/Hosp Course ADVANCED OVARIAN CANCER WITH MALIGNANT ASCITES AND PERITONEAL carcinomatosis Large conglomerate pelvic mass inseparable from the uterus, sigmoid colon and rectum containing clumps of calcification suspicious for calcified fibroids and containing cystic areas. Large amount of free intraperitoneal fluid measuring 25 HU with caking of the omentum compatible with carcinomatosis. Centralization of bowel without evidence of bowel obstruction. Moderately severe right hydronephrosis and hydroureter to the level of the pelvic mass. There is moderate left pelvocaliectasis without ureteral dilatation. The bladder is quite distended with urine. POST cystoscopy and insertion of bilateral JJ stents CT CHEST - EDOUARD, EXCEPT SMALL L PLEURAL EFFUSION CA 125- 337 POST debulking surgery PATH- [id number] High grade serous carcinoma. PLAN- CHEMO WHEN CLEARED BY GYNEONC IVC filter cancelled today and was rescheduled tomorrow ANEMIA, MICROCYTOSIS COMPLEX ANEMIA W-UP= + COMPONENT ACD DROP H/H POSTOP SERIAL H/H PRBC NEEDED PER STANDING ORDERS D/W RN LEUKOCYTOSIS REACTIVE, PARTIALLY 2 TO Splenectomy PELVIC ABSCESS- POST DRAINAGE malignant ascites sp para 10.19. hydro AUR from ascites, sp ureteral stenting. ILEUS NG TPN Problems: Consultation Date/Type/Reason Admit Date/Time Jan 22, 2017 at 14:12 Initial Consult Date 01/27/17 Type of Consultation: [facility] Referring Provider: RAUL EUCEDA MD 24 HR Interval Summary Free Text/Dictation ALL NOTED IVC filter cancelled today and was rescheduled tomorrow Exam/Review of Systems Vital Signs Vitals Vital Signs Date Time Temp Pulse Resp B/P Pulse Ox O2 Delivery O2 Flow Rate FiO2 02/11/17 12:30 90 02/11/17 12:25 97.7 22 137/77 97 02/11/17 08:08 3.0 02/11/17 08:00 Nasal Cannula 02/07/17 08:00 30 Intake and Output 02/10/17 02/10/17 02/11/17 15:00 23:00 07:00 Intake Total 810 ml 250 ml 1292.5 ml Output Total 2542 ml 1590 ml Balance 810 ml -2292 ml -297.5 ml Exam GENERAL: Chronically ill-appearing lady intermittent confusion VITAL SIGNS: per chart NECK: Supple. No JVD or lymphadenopathy. CARDIAC EXAM: S1, S2. No added sounds or murmurs. CHEST: Bilateral rales. ABDOMEN: Soft, nontender. No guarding or rebound., 4 DRAINS EXTREMITIES: No cyanosis, clubbing or edema. NEUROLOGIC: Generalized weakness. No focal deficits. Results Result Diagram: 02/11/17 0534 02/11/1734 Results 24 hrs Laboratory Tests Test 02/10/17 23:00 02/11/17 00:27 02/11/17 05:19 02/11/17 05:34 Bedside Glucose 122 116 Activated Partial Thromboplast Time 40.1 H White Blood Count 13.1 H Red Blood Count 3.12 L Hemoglobin 8.5 L Hematocrit 27.0 L Mean Corpuscular Volume 86.5 Mean Corpuscular Hemoglobin 27.2 L Mean Corpuscular Hemoglobin Concent 31.5 L Red Cell Distribution Width 18.1 H Platelet Count 593 #H Mean Platelet Volume 12.4 H Neutrophils % 83.7 H Lymphocytes % 3.4 L Monocytes % 10.9 Eosinophils % 0.7 Basophils % 0.2 Nucleated Red Blood Cells % 2.1 H Neutrophils # 11.0 H Lymphocytes # 0.4 L Monocytes # 1.4 H Eosinophils # 0.1 Basophils # 0.0 Nucleated Red Blood Cells # 0.3 H Sodium Level 148 H Potassium Level 3.0 L Chloride Level 110 Carbon Dioxide Level 32 H Anion Gap 9 Blood Urea Nitrogen 14 Creatinine 0.53 Glucose Level 113 Calcium Level 8.0 L Test 02/11/17 07:38 02/11/17 08:03 Lab Scanned Report BLOOD TRANSFUSION Activated Partial Thromboplast Time 44.5 H Medications Medications Current Medications Ondansetron HCl (Zofran Tab) 4 mg Q6H PRN PO NAUSEA AND/OR VOMITING; Start at 16:00 Acetaminophen (Tylenol Tab) 650 mg Q6H PRN PO PAIN LEVEL 1-3 OR FEVER Last administered on 02/06/17t 23:54; Admin Dose 650 MG; Start 01/22/17 at 16:00; Status Future Hold Docusate Sodium (Colace) 100 mg Q12H PRN PO CONSTIPATION; Start 01/22/17 at 16 :00 Magnesium Hydroxide (Milk Of Mag) 30 ml DAILY PRN PO CONSTIPATION Last administered on 01/31/17 07:38; Admin Dose 30 ML; Start 01/22/17 at 16:00 Bisacodyl (Dulcolax) 5 mg DAILY PRN PO CONSTIPATION Last administered on 05:07; Admin Dose 5 MG; Start 01/22/17 at 16:00 Polyethylene Glycol (Miralax) 17 gm DAILY PO Last administered on 02/09/17 09: 00; Admin Dose 17 GM; Start 01/26/17 at 15:30 Sodium Biphosphate/ Sodium Phosphate (Fleet Enema) 133 ml DAILY PRN NM CONSTIPATION Last administered on 01/27/17 06:17; Admin Dose 133 ML; Start at 20:30 Tolterodine Tartrate (Detrol La) 4 mg DAILY PO Last administered on 02/09/17 09:00; Admin Dose 4 MG; Start 01/27/17 at 15:30 Morphine Sulfate 2 mg 2 mg Q2H PRN IV PAIN LEVEL 7-10 Last administered on 02/11 13:39; Admin Dose 2 MG; Start 01/28/17 at 14:00 Ondansetron HCl/ Dextrose (Zofran Inj/D5W) 54 ml @ 108 mls/hr Q6H PRN IV NAUSEA AND/OR VOMITING; Start 01/31/17 at 12:00 Hydromorphone HCl (Dilaudid) 1 mg Q2H PRN IV PAIN LEVEL 6-10 Last administered on 02/09/17 22:28; Admin Dose 1 MG; Start 02/02/17 at 11:30 Diphenhydramine HCl (Benadryl) 25 mg Q6H PRN IV ITCHING Last administered on 17:19; Admin Dose 25 MG; Start 02/02/17 at 11:30 Acetaminophen (Tylenol Liquid) 650 mg Q4H PRN GTB PAIN AND OR ELEVATED TEMP Last administered on 02/06/17 16:19; Admin Dose 650 MG; Start 02/04/17 at 08:30 ; Status Future Hold Docusate Sodium 100 mg 100 mg BID NGT Last administered on 02/09/17 09:00; Admin Dose 100 MG; Start 02/05/17 at 09:00 Piperacillin Sod/ Tazobactam Sod 50 ml @ 200 mls/hr Q8 IVPB Last administered on 02/11/17 13:34; Admin Dose 200 MLS/HR; Start 02/05/17 at 14:00 Fat Emulsion Intravenous 250 ml @ 10 mls/hr Q24H IV Last administered on 20:10; Admin Dose 10 MLS/HR; Start 02/05/17 at 20:00 Total Parenteral Nutrition (Tpn) 1,000 ml @ 70 mls/hr [id number] IV Last administered on 02/11/17 03:46; Admin Dose 70 MLS/HR; Start 02/05/17 at 20:00 Furosemide (Lasix) 20 mg DAILY IV Last administered on 02/11/17 09:03; Admin Dose 20 MG; Start 02/07/17 at 11:00 Diagnostic Test (Pha) 1 ea 1 ea Q8 XX Last administered on 02/09/17 05:18; Admin Dose 1 EA; Start 02/07/17 at 22:00 Acetaminophen (Ofirmev 1000mg/ 100ml Iv) 100 ml @ 400 mls/hr Q6H PRN IVPB FEVER; Start 02/09/17 at 12:00 Lorazepam 1 mg 1 mg Q2 PRN IV AGITATION Last administered on 02/10/17 13:01; Admin Dose 1 MG; Start 02/10/17 at 12:30 Caspofungin 50 mg/ Sodium Chloride 250 ml @ 250 mls/hr Q24H IVPB ; Start at 14:00 Vancomycin HCl/ Sodium Chloride (Vancocin/NS) 250 ml @ 83.333 mls/ hr Q12H IVPB Last administered on 02/11/17 01:49; Admin Dose 83.333 MLS/HR; Start 02/10/17 at 14:00 Miscellaneous Information VANCOMYCIN TROUGH 02/12 AT 0100 ONCE ONCE XX ; Start 02/12/17 at 01:00; Stop 02/12/17 at 01:01 Dextrose 1,000 ml @ 75 mls/hr [id number] IV ; Start 02/11/17 at 14:30; Stop at 02:30; Status UNV Potassium Chloride (KCl 40 MEQ/250 ML NS) 250 ml @ 62.5 mls/hr Q4H IVPB ; Start 02/11/17 at 14:30; Stop 02/11/17 at 22:29; Status UNV RAMIREZ YBARRA MD Feb 11, 2017 14:10
[2017-02-11] MEDS ORDERED: DEXTROSE 5% 1,000 ML IV SCH (14:30)
[2017-02-11] MEDS: POTASSIUM CHLORIDE 250 ML IVPB SCH ×2 (15:10→19:47)
[2017-02-11] MEDS: FAT EMULSION 20% 250 ML IV SCH (20:07)
[2017-02-11] MEDS: LORAZEPAM 2 MG INJ IV PRN (20:11)
--- NOTE | 2017-02-11 21:47 | PN ---
Date/Time of Note Date/Time of Note DATE: 02/11/17 TIME: 21:42 Assessment/Plan VTE Prophylaxis VTE Prophylaxis Intervention: LMWH Lines/Catheters IV Catheter Type (from Nrs): Central Line Central line still needed: Yes Urinary Cath still in place: Yes Reason Cath still needed: urinary retention Assessment/Plan Chief Complaint/Hosp Course Stage IIIc - IV ovarian cancer Problems: Assessment/Plan A- improved P- appreciated management per IM. Improved with less medication and with drainage; appreciated. Re-check a.m. Subjective 24 Hr Interval Summary Free Text/Dictation Feels better and more alert Exam/Review of Systems Vital Signs Vitals Vital Signs Date Time Temp Pulse Resp B/P Pulse Ox O2 Delivery O2 Flow Rate FiO2 02/11/17 20:51 88 02/11/17 16:07 98.5 20 127/75 97 02/11/17 08:08 3.0 02/11/17 08:00 Nasal Cannula 02/07/17 08:00 30 Intake and Output 02/10/17 02/10/17 02/11/17 15:00 23:00 07:00 Intake Total 810 ml 250 ml 1292.5 ml Output Total 2542 ml 1590 ml Balance 810 ml -2292 ml -297.5 ml Exam Resp- clear CVS- NSR Abd- Less tender and soft Ext- less tender and less edema Results Result Diagram: 02/11/17 0534 02/11/17 0534 Results 24 hrs Laboratory Tests Test 02/10/17 23:00 02/11/17 00:27 02/11/17 05:19 02/11/17 05:34 Bedside Glucose 122 116 Activated Partial Thromboplast Time 40.1 H White Blood Count 13.1 H Red Blood Count 3.12 L Hemoglobin 8.5 L Hematocrit 27.0 L Mean Corpuscular Volume 86.5 Mean Corpuscular Hemoglobin 27.2 L Mean Corpuscular Hemoglobin Concent 31.5 L Red Cell Distribution Width 18.1 H Platelet Count 593 #H Mean Platelet Volume 12.4 H Neutrophils % 83.7 H Lymphocytes % 3.4 L Monocytes % 10.9 Eosinophils % 0.7 Basophils % 0.2 Nucleated Red Blood Cells % 2.1 H Neutrophils # 11.0 H Lymphocytes # 0.4 L Monocytes # 1.4 H Eosinophils # 0.1 Basophils # 0.0 Nucleated Red Blood Cells # 0.3 H Sodium Level 148 H Potassium Level 3.0 L Chloride Level 110 Carbon Dioxide Level 32 H Anion Gap 9 Blood Urea Nitrogen 14 Creatinine 0.53 Glucose Level 113 Calcium Level 8.0 L Test 02/11/17 07:38 02/11/17 08:03 02/11/17 14:06 02/11/17 14:30 Lab Scanned Report BLOOD TRANSFUSION Activated Partial Thromboplast Time 44.5 H 71.9 *H Bedside Glucose 111 Test 02/11/17 20:29 Activated Partial Thromboplast Time 51.9 H Medications Medications Current Medications Ondansetron HCl (Zofran Tab) 4 mg Q6H PRN PO NAUSEA AND/OR VOMITING; Start at 16:00 Acetaminophen (Tylenol Tab) 650 mg Q6H PRN PO PAIN LEVEL 1-3 OR FEVER Last administered on 02/06/17 23:54; Admin Dose 650 MG; Start 01/22/17 at 16:00; Status Future Hold Docusate Sodium (Colace) 100 mg Q12H PRN PO CONSTIPATION; Start 01/22/17 at 16 :00 Magnesium Hydroxide (Milk Of Mag) 30 ml DAILY PRN PO CONSTIPATION Last administered on 01/31/17 07:38; Admin Dose 30 ML; Start 01/22/17 at 16:00 Bisacodyl (Dulcolax) 5 mg DAILY PRN PO CONSTIPATION Last administered on 05:07; Admin Dose 5 MG; Start 01/22/17 at 16:00 Polyethylene Glycol (Miralax) 17 gm DAILY PO Last administered on 02/09/17 09: 00; Admin Dose 17 GM; Start 01/26/17 at 15:30 Sodium Biphosphate/ Sodium Phosphate (Fleet Enema) [address] CONSTIPATION Last administered on 01/27/17 06:17; Admin Dose 133 ML; Start at 20:30 Tolterodine Tartrate (Detrol La) 4 mg DAILY PO Last administered on 02/09/17 09:00; Admin Dose 4 MG; Start 01/27/17 at 15:30 Morphine Sulfate 2 mg 2 mg Q2H PRN IV PAIN LEVEL 7-10 Last administered on 02/11 13:39; Admin Dose 2 MG; Start 01/28/17 at 14:00 Ondansetron HCl/ Dextrose (Zofran Inj/D5W) 54 ml @ 108 mls/hr Q6H PRN IV NAUSEA AND/OR VOMITING; Start 01/31/17 at 12:00 Hydromorphone HCl (Dilaudid) 1 mg Q2H PRN IV PAIN LEVEL 6-10 Last administered on 02/09/17 22:28; Admin Dose 1 MG; Start 02/02/17 at 11:30 Diphenhydramine HCl (Benadryl) 25 mg Q6H PRN IV ITCHING Last administered on 17:19; Admin Dose 25 MG; Start 02/02/17 at 11:30 Acetaminophen (Tylenol Liquid) 650 mg Q4H PRN GTB PAIN AND OR ELEVATED TEMP Last administered on 02/06/17 16:19; Admin Dose 650 MG; Start 02/04/17 at 08:30 ; Status Future Hold Docusate Sodium 100 mg 100 mg BID NGT Last administered on 02/11/17 21:22; Admin Dose 100 MG; Start 02/05/17 at 09:00 Piperacillin Sod/ Tazobactam Sod 50 ml @ 200 mls/hr Q8 IVPB Last administered on 02/11/17 21:22; Admin Dose 200 MLS/HR; Start 02/05/17 at 14:00 Fat Emulsion Intravenous 250 ml @ 10 mls/hr Q24H IV Last administered on 20:07; Admin Dose 10 MLS/HR; Start 02/05/17 at 20:00 Total Parenteral Nutrition (Tpn) 1,000 ml @ 70 mls/hr [id number] IV Last administered on 02/11/17 19:49; Admin Dose 70 MLS/HR; Start 02/05/17 at 20:00 Furosemide (Lasix) 20 mg DAILY IV Last administered on 02/11/17 09:03; Admin Dose 20 MG; Start 02/07/17 at 11:00 Diagnostic Test (Pha) 1 ea 1 ea Q8 XX Last administered on 02/11/17 14:07; Admin Dose 1 EA; Start 02/07/17 at 22:00 Acetaminophen (Ofirmev 1000mg/ 100ml Iv) 100 ml @ 400 mls/hr Q6H PRN IVPB FEVER; Start 02/09/17 at 12:00 Lorazepam 1 mg 1 mg Q2 PRN IV AGITATION Last administered on 02/11/17 20:11; Admin Dose 1 MG; Start 02/10/17 at 12:30 Caspofungin 50 mg/ Sodium Chloride 250 ml @ 250 mls/hr Q24H IVPB Last administered on 02/11/17 14:08; Admin Dose 250 MLS/HR; Start 02/11/17 at 14:00 Vancomycin HCl/ Sodium Chloride (Vancocin/NS) 250 ml @ 83.333 mls/ hr Q12H IVPB Last administered on 02/11/17 15:10; Admin Dose 83.333 MLS/HR; Start 02/10/17 at 14:00 Miscellaneous Information VANCOMYCIN TROUGH 02/12 AT 0100 ONCE ONCE XX ; Start 02/12/17 at 01:00; Stop 02/12/17 at 01:01 Dextrose 1,000 ml @ 75 mls/hr [id number] IV Last administered on 02/11/17 15:11 ; Admin Dose 75 MLS/HR; Start 02/11/17 at 14:30; Stop 02/12/17 at 02:30 Potassium Chloride (KCl 40 MEQ/250 ML NS) 250 ml @ 62.5 mls/hr Q4H IVPB Last administered on 02/11/17 19:47; Admin Dose 62.5 MLS/HR; Start 02/11/17 at 14:30 ; Stop 02/11/17 at 22:29 RAUL EUCEDA MD Feb 11, 2017 21:47
[2017-02-12] VITALS (12 sets, daily range): BP systolic 111–144; BP diastolic 62–80; PULSE 83–170; RESP 18–21
[2017-02-12] MEDS: VANCOMYCIN 1.5 GM in SOD CHLORIDE 0.9% 250 ML IVPB SCH ×2 (02:36→14:24)
[2017-02-12] MEDS: morphine 2 MG INJ IV PRN ×3 (02:37→08:59)
[2017-02-12] MEDS: PIPER-TAZO 3.375 GM IV (PMX) 50 ML IVPB SCH ×3 (06:33→22:48)
[2017-02-12] MEDS: ACCU-CHEK XX SCH ×3 (06:33→21:50)
[2017-02-12 07:19] LABS: ABNORMAL IP MESSAGE 1; BASOPHILS % 0.1 % (0.0-2.0); EOSINOPHILS # 0.1 10^3/ul (0.0-0.5); EOSINOPHILS % 0.7 % (0.0-7.0); HEMATOCRIT 26.8 % (37.0-47.0); HEMOGLOBIN 8.4 g/dl (12.0-16.0); LYMPHOCYTES # 0.6 10^3/ul (0.8-2.9); LYMPHOCYTES % 3.9 % (15.0-51.0); MEAN CORPUSCULAR HEMOGLOBIN 27.5 pg (29.0-33.0); MEAN CORPUSCULAR HGB CONC 31.3 g/dl (32.0-37.0); MEAN CORPUSCULAR VOLUME 87.9 fl (82.0-101.0); MEAN PLATELET VOLUME 12.7 fl (7.4-10.4); MONOCYTE # 1.4 10^3/ul (0.3-0.9); MONOCYTES % 9.1 % (0.0-11.0); NEUTROPHIL # 12.6 10^3/ul (1.6-7.5); NEUTROPHILS % 85.3 % (39.0-77.0); NUCLEATED RED BLOOD CELLS # 0.1 10^3/ul (0.0-0.0); NUCLEATED RED BLOOD CELLS% 0.9 /100WBC (0.0-0.0); RED BLOOD COUNT 3.05 10^6/ul (4.20-5.40); RED CELL DISTRIBUTION WIDTH 18.2 % (11.5-14.5); WHITE BLOOD COUNT 14.8 10^3/ul (4.8-10.8)
[2017-02-12 07:26] LABS: PLATELET COUNT 675 10^3/UL (140-415); POSITIVE DIFF @See below
[2017-02-12 07:47] LABS: MAGNESIUM 1.8 mg/dl (1.7-2.5); PHOSPHORUS 3.2 mg/dl (2.5-4.9)
[2017-02-12] MEDS: DOCUSATE SODIUM 10 MG/ML (10ML CUP) NGT SCH ×2 (07:55→21:00)
[2017-02-12] MEDS: POLYETHYLENE GLYCOL 17 GM PACKET PO SCH (07:55)
[2017-02-12 08:06] LABS: CALCIUM 8.3 mg/dl (8.4-10.2); CREATININE 0.54 mg/dl (0.44-1.00); POTASSIUM 3.9 mmol/L (3.5-5.1)
[2017-02-12] MEDS: HEPARIN 25000 UNITS/250 ML 250 ML IV SCH ×2 (08:09→19:31)
[2017-02-12] MEDS: HEPARIN 1000 UNITS/ML 10 ML INJ IV PRN ×2 (08:10→19:31)
[2017-02-12] MEDS: TOLTERODINE (SR) 4 MG CAP PO SCH (08:59)
[2017-02-12] MEDS: FUROSEMIDE 20 MG INJ IV SCH (08:59)
[2017-02-12] MEDS: TPN 1,000 ML IV SCH (10:00)
[2017-02-12] MEDS: HYDROmorphONE 0.5 MG/0.5 ML SYG IV PRN ×3 (10:03→16:49)
--- NOTE | 2017-02-12 11:38 | CONS ---
Date/Time of Note Date/Time of Note DATE: 02/12/17 TIME: 11:37 Consult Date/Type/Reason Admit Date/Time Jan 22, 2017 at 14:12 Initial Consult Date 02/03/17 Type of Consultation: Pulmonary Ordering Provider: RAUL EUCEDA MD Subjective Patient less agitated today. Comfortable. Objective Vital Signs Date Time Temp Pulse Resp B/P Pulse Ox O2 Delivery O2 Flow Rate FiO2 02/12/17 08:18 100 02/12/17 08:05 97 2.0 02/12/17 07:26 99.0 20 119/71 02/12/17 00:00 Nasal Cannula Intake and Output 02/11/17 02/11/17 02/12/17 15:00 23:00 07:00 Intake Total 1660 ml 1202 ml Output Total 2232 ml 1255 ml Balance -572 ml -53 ml Exam GENERAL: Chronically ill-appearing lady intermittent confusion VITAL SIGNS: per chart NECK: Supple. No JVD or lymphadenopathy. CARDIAC EXAM: S1, S2. No added sounds or murmurs. CHEST: Bilateral rales. ABDOMEN: Soft, nontender. No guarding or rebound. EXTREMITIES: No cyanosis, clubbing or edema. NEUROLOGIC: Generalized weakness. No focal deficits. Results/Medications Result Diagram: 02/12/17 0641 02/12/17 0640 Results 24 hrs Laboratory Tests Test 02/11/17 14:06 02/11/17 14:30 02/11/17 20:29 02/11/17 22:54 Bedside Glucose 111 114 Activated Partial Thromboplast Time 71.9 *H 51.9 H Test 02/12/17 01:09 02/12/17 06:31 02/12/17 06:40 02/12/17 06:41 Vancomycin Level Trough 13.6 Bedside Glucose 110 Sodium Level 148 H Potassium Level 3.9 Chloride Level 111 H Carbon Dioxide Level 32 H Anion Gap 9 Blood Urea Nitrogen 15 Creatinine 0.54 Glucose Level 105 Calcium Level 8.3 L White Blood Count 14.8 H Red Blood Count 3.05 L Hemoglobin 8.4 L Hematocrit 26.8 L Mean Corpuscular Volume 87.9 Mean Corpuscular Hemoglobin 27.5 L Mean Corpuscular Hemoglobin Concent 31.3 L Red Cell Distribution Width 18.2 H Platelet Count 675 H Mean Platelet Volume 12.7 H Neutrophils % 85.3 H Lymphocytes % 3.9 L Monocytes % 9.1 Eosinophils % 0.7 Basophils % 0.1 Nucleated Red Blood Cells % 0.9 H Neutrophils # 12.6 H Lymphocytes # 0.6 L Monocytes # 1.4 H Eosinophils # 0.1 Basophils # 0.0 Nucleated Red Blood Cells # 0.1 H Activated Partial Thromboplast Time 40.9 H Phosphorus Level 3.2 Magnesium Level 1.8 Triglycerides Level 167 H Medications Current Medications Ondansetron HCl (Zofran Tab) 4 mg Q6H PRN PO NAUSEA AND/OR VOMITING; Start at 16:00 Acetaminophen (Tylenol Tab) 650 mg Q6H PRN PO PAIN LEVEL 1-3 OR FEVER Last administered on 02/06/17 23:54; Admin Dose 650 MG; Start 01/22/17 at 16:00; Status Future Hold Docusate Sodium (Colace) 100 mg Q12H PRN PO CONSTIPATION; Start 01/22/17 at 16 :00 Magnesium Hydroxide (Milk Of Mag) 30 ml DAILY PRN PO CONSTIPATION Last administered on 01/31/17 07:38; Admin Dose 30 ML; Start 01/22/17 at 16:00 Bisacodyl (Dulcolax) 5 mg DAILY PRN PO CONSTIPATION Last administered on 05:07; Admin Dose 5 MG; Start 01/22/17 at 16:00 Polyethylene Glycol (Miralax) 17 gm DAILY PO Last administered on 02/09/17 09: 00; Admin Dose 17 GM; Start 01/26/17 at 15:30 Sodium Biphosphate/ Sodium Phosphate (Fleet Enema) 133 ml DAILY PRN [place] CONSTIPATION Last administered on 01/27/17 06:17; Admin Dose 133 ML; Start at 20:30 Tolterodine Tartrate (Detrol La) 4 mg DAILY PO Last administered on 02/12/17 08:59; Admin Dose 4 MG; Start 01/27/17 at 15:30 Morphine Sulfate 2 mg 2 mg Q2H PRN IV PAIN LEVEL 7-10 Last administered on 02/12 08:59; Admin Dose 2 MG; Start 01/28/17 at 14:00 Ondansetron HCl/ Dextrose (Zofran Inj/D5W) 54 ml @ 108 mls/hr Q6H PRN IV NAUSEA AND/OR VOMITING; Start 01/31/17 at 12:00 Hydromorphone HCl (Dilaudid) 1 mg Q2H PRN IV PAIN LEVEL 6-10 Last administered on 02/12/17 10:03; Admin Dose 1 MG; Start 02/02/17 at 11:30 Diphenhydramine HCl (Benadryl) 25 mg Q6H PRN IV ITCHING Last administered on 17:19; Admin Dose 25 MG; Start 02/02/17 at 11:30 Acetaminophen (Tylenol Liquid) 650 mg Q4H PRN GTB PAIN AND OR ELEVATED TEMP Last administered on 02/06/17 16:19; Admin Dose 650 MG; Start 02/04/17 at 08:30 ; Status Future Hold Docusate Sodium 100 mg 100 mg BID NGT Last administered on 02/11/17 21:22; Admin Dose 100 MG; Start 02/05/17 at 09:00 Piperacillin Sod/ Tazobactam Sod 50 ml @ 200 mls/hr Q8 IVPB Last administered on 02/12/17 06:33; Admin Dose 200 MLS/HR; Start 02/05/17 at 14:00 Fat Emulsion Intravenous 250 ml @ 10 mls/hr Q24H IV Last administered on 20:07; Admin Dose 10 MLS/HR; Start 02/05/17 at 20:00 Total Parenteral Nutrition (Tpn) 1,000 ml @ 70 mls/hr [id number] IV Last administered on 02/12/17 10:00; Admin Dose 70 MLS/HR; Start 02/05/17 at 20:00 Furosemide (Lasix) 20 mg DAILY IV Last administered on 02/12/17 08:59; Admin Dose 20 MG; Start 02/07/17 at 11:00 Diagnostic Test (Pha) 1 ea 1 ea Q8 XX Last administered on 02/12/17 06:33; Admin Dose 1 EA; Start 02/07/17 at 22:00 Acetaminophen (Ofirmev 1000mg/ 100ml Iv) 100 ml @ 400 mls/hr Q6H PRN IVPB FEVER; Start 02/09/17 at 12:00 Lorazepam 1 mg 1 mg Q2 PRN IV AGITATION Last administered on 02/11/17 20:11; Admin Dose 1 MG; Start 02/10/17 at 12:30 Caspofungin 50 mg/ Sodium Chloride 250 ml @ 250 mls/hr Q24H IVPB Last administered on 02/11/17 14:08; Admin Dose 250 MLS/HR; Start 02/11/17 at 14:00 Vancomycin HCl/ Sodium Chloride (Vancocin/NS) 250 ml @ 83.333 mls/ hr Q12H IVPB Last administered on 02/12/17 02:36; Admin Dose 83.333 MLS/HR; Start 02/10/17 at 14:00 Assessment/Plan Chief Complaint/Hosp Course Assessment 1. Hypoxemic respiratory failure with alveolar hypoventilation neuromuscular weakness, now extubated. 2. Recent diagnosis of stage IV ovarian cancer status post hysterectomy with bilateral salpingo-oophorectomy 3. Postop ileus slowly resolving 4. Status post septic shock. 5. Mild leukocytosis. 6. Postop delirium, better today. Plan 1. Avoid sedatives, PT eval encourage out of bed 2. Aspiration precautions. 3. Continue postop surgical recommendations 4. DVT GI prophylaxis 5. Continues TPN 6. Status post CT-guided drainage of right upper quadrant fluid collection. 7. Iron studies Ferrlecit. 8. Correct electrolytes. Consider transfer to [facility]. Problems: SERA NAVARRO MD[facility] Feb 12, 2017 11:37
--- NOTE | 2017-02-12 12:28 | PN ---
Date/Time of Note Date/Time of Note DATE: 02/12/17 TIME: 12:26 Assessment/Plan VTE Prophylaxis VTE Prophylaxis Intervention: heparin Lines/Catheters IV [facility]atheter Type (from [facility]): Central Line Central line still needed: Yes Urinary Cath still in place: Yes Reason Cath still needed: urinary retention Assessment/Plan Chief Complaint/Hosp Course Assessment/Plan: 56 yo F with known stage 4 ovarian Ca here admitted for abd pain from malignant ascites sp para 10.19, sp ureteral stenting as well sp debulking surgery on February 03. ovarian cancer: Status post debulking surgery postop day # 9, extubated 4 days ago, sp pressors but off these now, onc and scarf gluer onc still following. 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 Empiric abx started 02.05 for fever, urine cultures negative, CXR without focal consolidation. respiratory culture with NRF. + blood cultures as well, now with bilateral pulmonary embolisms. - Continue pain medications, TPN for now, continue abx as per ID caspofungin and Vanco - Follow-up gynecologic onc, pulm, and heme onc recommendations - f/u PT/OT evals -Again, for CT-guided drainage of abdominal abscess, follow-up culture results, continue antibiotics -For bilateral pulmonary embolisms, also planning for IVC filter placement later today, will restart heparin drip afterwards 2. subclinical hypothyroid: outpatient f/u 3. Low hemoglobin: Patient received blood transfusion 3 days ago. Hemoglobin stable presently -Continue to monitor for now 4. Hypernatremia: Mildly elevated (148) again today despite D5W IV fluids for 12 hours given yesterday -We will administer D5W IV fluids again, recheck BMP in the morning Problems: Subjective 24 Hr Interval Summary Free Text/Dictation Patient awaiting IVC filter placement for later today. Still quite lethargic, otherwise no acute events overnight. Still on TPN. Exam/Review of Systems Vital Signs Vitals Vital Signs Date Time Temp Pulse Resp B/P Pulse Ox O2 Delivery O2 Flow Rate FiO2 02/12/17 12:11 83 02/12/17 11:41 98.2 20 111/62 96 02/12/17 08:05 2.0 02/12/17 00:00 Nasal Cannula Intake and Output 02/11/17 02/11/17 02/12/17 15:00 23:00 07:00 Intake Total 1660 ml 1202 ml Output Total 2232 ml 1255 ml Balance -572 ml -53 ml Exam Gen: still lethargic, opens eyes occasionally HEENT: PERRL, EOMI, anicteric Neck: Trach midline Respiratory: Clear anterior, some diminished BLL Cardiovascular: NSR on tele, radial pulses 2+ bilaterally Gastrointestinal: Soft, bilateral J/P drains Extremities: Warm, no cyanosis, trace edema Neurological: No focal deficits Results Result Diagram: 02/12/17 0641 02/12/17 0640 Results 24 hrs Laboratory Tests Test 02/11/17 14:06 02/11/17 14:30 02/11/17 20:29 02/11/17 22:54 Bedside Glucose 111 114 Activated Partial Thromboplast Time 71.9 *H 51.9 H Test 02/12/17 01:09 02/12/17 06:31 02/12/17 06:40 02/12/17 06:41 Vancomycin Level Trough 13.6 Bedside Glucose 110 Sodium Level 148 H Potassium Level 3.9 Chloride Level 111 H Carbon Dioxide Level 32 H Anion Gap 9 Blood Urea Nitrogen 15 Creatinine 0.54 Glucose Level 105 Calcium Level 8.3 L White Blood Count 14.8 H Red Blood Count 3.05 L Hemoglobin 8.4 L Hematocrit 26.8 L Mean Corpuscular Volume 87.9 Mean Corpuscular Hemoglobin 27.5 L Mean Corpuscular Hemoglobin Concent 31.3 L Red Cell Distribution Width 18.2 H Platelet Count 675 H Mean Platelet Volume 12.7 H Neutrophils % 85.3 H Lymphocytes % 3.9 L Monocytes % 9.1 Eosinophils % 0.7 Basophils % 0.1 Nucleated Red Blood Cells % 0.9 H Neutrophils # 12.6 H Lymphocytes # 0.6 L Monocytes # 1.4 H Eosinophils # 0.1 Basophils # 0.0 Nucleated Red Blood Cells # 0.1 H Activated Partial Thromboplast Time 40.9 H Phosphorus Level 3.2 Magnesium Level 1.8 Triglycerides Level 167 H Medications Medications Current Medications Ondansetron HCl (Zofran Tab) 4 mg Q6H PRN PO NAUSEA AND/OR VOMITING; Start at 16:00 Acetaminophen (Tylenol Tab) 650 mg Q6H PRN PO PAIN LEVEL 1-3 OR FEVER Last administered on 02/06/17t 23:54; Admin Dose 650 MG; Start 01/22/17 at 16:00; Status Future Hold Docusate Sodium (Colace) 100 mg Q12H PRN PO CONSTIPATION; Start 01/22/17 at 16 :00 Magnesium Hydroxide (Milk Of Mag) 30 ml DAILY PRN PO CONSTIPATION Last administered on 01/31/17 07:38; Admin Dose 30 ML; Start 01/22/17 at 16:00 Bisacodyl (Dulcolax) 5 mg DAILY PRN PO CONSTIPATION Last administered on 05:07; Admin Dose 5 MG; Start 01/22/17 at 16:00 Polyethylene Glycol (Miralax) 17 gm DAILY PO Last administered on 02/09/17 09: 00; Admin Dose 17 GM; Start 01/26/17 at 15:30 Sodium Biphosphate/ Sodium Phosphate (Fleet Enema) 133 ml DAILY PRN [place] CONSTIPATION Last administered on 01/27/17 06:17; Admin Dose 133 ML; Start at 20:30 Tolterodine Tartrate (Detrol La) 4 mg DAILY PO Last administered on 02/12/17 08:59; Admin Dose 4 MG; Start 01/27/17 at 15:30 Morphine Sulfate 2 mg 2 mg Q2H PRN IV PAIN LEVEL 7-10 Last administered on 02/12 08:59; Admin Dose 2 MG; Start 01/28/17 at 14:00 Ondansetron HCl/ Dextrose (Zofran Inj/D5W) 54 ml @ 108 mls/hr Q6H PRN IV NAUSEA AND/OR VOMITING; Start 01/31/17 at 12:00 Hydromorphone HCl (Dilaudid) 1 mg Q2H PRN IV PAIN LEVEL 6-10 Last administered on 02/12/17 10:03; Admin Dose 1 MG; Start 02/02/17 at 11:30 Diphenhydramine HCl (Benadryl) 25 mg Q6H PRN IV ITCHING Last administered on 17:19; Admin Dose 25 MG; Start 02/02/17 at 11:30 Acetaminophen (Tylenol Liquid) 650 mg Q4H PRN GTB PAIN AND OR ELEVATED TEMP Last administered on 02/06/17 16:19; Admin Dose 650 MG; Start 02/04/17 at 08:30 ; Status Future Hold Docusate Sodium 100 mg 100 mg BID NGT Last administered on 02/11/17 21:22; Admin Dose 100 MG; Start 02/05/17 at 09:00 Piperacillin Sod/ Tazobactam Sod 50 ml @ 200 mls/hr Q8 IVPB Last administered on 02/12/17 06:33; Admin Dose 200 MLS/HR; Start 02/05/17 at 14:00 Fat Emulsion Intravenous 250 ml @ 10 mls/hr Q24H IV Last administered on 20:07; Admin Dose 10 MLS/HR; Start 02/05/17 at 20:00 Total Parenteral Nutrition (Tpn) 1,000 ml @ 70 mls/hr [id number] IV Last administered on 02/12/17 10:00; Admin Dose 70 MLS/HR; Start 02/05/17 at 20:00 Furosemide (Lasix) 20 mg DAILY IV Last administered on 02/12/17 08:59; Admin Dose 20 MG; Start 02/07/17 at 11:00 Diagnostic Test (Pha) 1 ea 1 ea Q8 XX Last administered on 02/12/17 06:33; Admin Dose 1 EA; Start 02/07/17 at 22:00 Acetaminophen (Ofirmev 1000mg/ 100ml Iv) 100 ml @ 400 mls/hr Q6H PRN IVPB FEVER; Start 02/09/17 at 12:00 Lorazepam 1 mg 1 mg Q2 PRN IV AGITATION Last administered on 02/11/17 20:11; Admin Dose 1 MG; Start 02/10/17 at 12:30 Caspofungin 50 mg/ Sodium Chloride 250 ml @ 250 mls/hr Q24H IVPB Last administered on 02/11/17 14:08; Admin Dose 250 MLS/HR; Start 02/11/17 at 14:00 Vancomycin HCl/ Sodium Chloride (Vancocin/NS) 250 ml @ 83.333 mls/ hr Q12H IVPB Last administered on 02/12/17 02:36; Admin Dose 83.333 MLS/HR; Start 02/10/17 at 14:00 KENTRELL MACIAS 9, 2017 12:28
[2017-02-12] MEDS ORDERED: HEPARIN 1000 UNITS/NS (A-LINE) 1,000 ML ONE (13:08)
[2017-02-12] MEDS ORDERED: LIDOCAINE 1% (MDV) 20 ML INJ ONE (13:08)
--- NOTE | 2017-02-12 13:30 | CONS ---
Date/Time of Note Date/Time of Note DATE: 02/12/17 TIME: 13:28 Consult Date/Type/Reason Admit Date/Time Jan 22, 2017 at 14:12 Initial Consult Date 02/03/17 Type of Consultation: id Ordering Provider: RAUL EUCEDA MD Objective Vital Signs Date Time Temp Pulse Resp B/P Pulse Ox O2 Delivery O2 Flow Rate FiO2 02/12/17 12:11 83 02/12/17 11:41 98.2 20 111/62 96 02/12/17 08:05 2.0 02/12/17 00:00 Nasal Cannula Intake and Output 02/11/17 02/11/17 02/12/17 15:00 23:00 07:00 Intake Total 1660 ml 1202 ml Output Total 2232 ml 1255 ml Balance -572 ml -53 ml Results/Medications Result Diagram: 02/12/17 0641 02/12/17 0640 Results 24 hrs Laboratory Tests Test 02/11/17 14:06 02/11/17 14:30 02/11/17 20:29 02/11/17 22:54 Bedside Glucose 111 114 Activated Partial Thromboplast Time 71.9 *H 51.9 H Test 02/12/17 01:09 02/12/17 06:31 02/12/17 06:40 02/12/17 06:41 Vancomycin Level Trough 13.6 Bedside Glucose 110 Sodium Level 148 H Potassium Level 3.9 Chloride Level 111 H Carbon Dioxide Level 32 H Anion Gap 9 Blood Urea Nitrogen 15 Creatinine 0.54 Glucose Level 105 Calcium Level 8.3 L White Blood Count 14.8 H Red Blood Count 3.05 L Hemoglobin 8.4 L Hematocrit 26.8 L Mean Corpuscular Volume 87.9 Mean Corpuscular Hemoglobin 27.5 L Mean Corpuscular Hemoglobin Concent 31.3 L Red Cell Distribution Width 18.2 H Platelet Count 675 H Mean Platelet Volume 12.7 H Neutrophils % 85.3 H Lymphocytes % 3.9 L Monocytes % 9.1 Eosinophils % 0.7 Basophils % 0.1 Nucleated Red Blood Cells % 0.9 H Neutrophils # 12.6 H Lymphocytes # 0.6 L Monocytes # 1.4 H Eosinophils # 0.1 Basophils # 0.0 Nucleated Red Blood Cells # 0.1 H Activated Partial Thromboplast Time 40.9 H Phosphorus Level 3.2 Magnesium Level 1.8 Triglycerides Level 167 H Medications Current Medications Ondansetron HCl (Zofran Tab) 4 mg Q6H PRN PO NAUSEA AND/OR VOMITING; Start at 16:00 Acetaminophen (Tylenol Tab) 650 mg Q6H PRN PO PAIN LEVEL 1-3 OR FEVER Last administered on 02/06/17 23:54; Admin Dose 650 MG; Start 01/22/17 at 16:00; Status Future Hold Docusate Sodium (Colace) 100 mg Q12H PRN PO CONSTIPATION; Start 01/22/17 at 16 :00 Magnesium Hydroxide (Milk Of Mag) 30 ml DAILY PRN PO CONSTIPATION Last administered on 01/31/17 07:38; Admin Dose 30 ML; Start 01/22/17 at 16:00 Bisacodyl (Dulcolax) 5 mg DAILY PRN PO CONSTIPATION Last administered on 05:07; Admin Dose 5 MG; Start 01/22/17 at 16:00 Polyethylene Glycol (Miralax) 17 gm DAILY PO Last administered on 02/09/17 09: 00; Admin Dose 17 GM; Start 01/26/17 at 15:30 Sodium Biphosphate/ Sodium Phosphate (Fleet Enema) 133 ml DAILY PRN [place] CONSTIPATION Last administered on 01/27/17 06:17; Admin Dose 133 ML; Start at 20:30 Tolterodine Tartrate (Detrol La) 4 mg DAILY PO Last administered on 02/12/17 08:59; Admin Dose 4 MG; Start 01/27/17 at 15:30 Morphine Sulfate 2 mg 2 mg Q2H PRN IV PAIN LEVEL 7-10 Last administered on 02/12 08:59; Admin Dose 2 MG; Start 01/28/17 at 14:00 Ondansetron HCl/ Dextrose (Zofran Inj/D5W) 54 ml @ 108 mls/hr Q6H PRN IV NAUSEA AND/OR VOMITING; Start 01/31/17 at 12:00 Hydromorphone HCl (Dilaudid) 1 mg Q2H PRN IV PAIN LEVEL 6-10 Last administered on 02/12/17 10:03; Admin Dose 1 MG; Start 02/02/17 at 11:30 Diphenhydramine HCl (Benadryl) 25 mg Q6H PRN IV ITCHING Last administered on 17:19; Admin Dose 25 MG; Start 02/02/17 at 11:30 Acetaminophen (Tylenol Liquid) 650 mg Q4H PRN GTB PAIN AND OR ELEVATED TEMP Last administered on 02/06/17 16:19; Admin Dose 650 MG; Start 02/04/17 at 08:30 ; Status Future Hold Docusate Sodium 100 mg 100 mg BID NGT Last administered on 02/11/17 21:22; Admin Dose 100 MG; Start 02/05/17 at 09:00 Piperacillin Sod/ Tazobactam Sod 50 ml @ 200 mls/hr Q8 IVPB Last administered on 02/12/17 06:33; Admin Dose 200 MLS/HR; Start 02/05/17 at 14:00 Fat Emulsion Intravenous 250 ml @ 10 mls/hr Q24H IV Last administered on 20:07; Admin Dose 10 MLS/HR; Start 02/05/17 at 20:00 Total Parenteral Nutrition (Tpn) 1,000 ml @ 70 mls/hr [id number] IV Last administered on 02/12/17 10:00; Admin Dose 70 MLS/HR; Start 02/05/17 at 20:00 Furosemide (Lasix) 20 mg DAILY IV Last administered on 02/12/17 08:59; Admin Dose 20 MG; Start 02/07/17 at 11:00 Diagnostic Test (Pha) 1 ea 1 ea Q8 XX Last administered on 02/12/17 06:33; Admin Dose 1 EA; Start 02/07/17 at 22:00 Acetaminophen (Ofirmev 1000mg/ 100ml Iv) 100 ml @ 400 mls/hr Q6H PRN IVPB FEVER; Start 02/09/17 at 12:00 Lorazepam 1 mg 1 mg Q2 PRN IV AGITATION Last administered on 02/11/17 20:11; Admin Dose 1 MG; Start 02/10/17 at 12:30 Caspofungin 50 mg/ Sodium Chloride 250 ml @ 250 mls/hr Q24H IVPB Last administered on 02/11/17 14:08; Admin Dose 250 MLS/HR; Start 02/11/17 at 14:00 Vancomycin HCl/ Sodium Chloride (Vancocin/NS) 250 ml @ 83.333 mls/ hr Q12H IVPB Last administered on 02/12/17t 02:36; Admin Dose 83.333 MLS/HR; Start 02/10/17 at 14:00 Assessment/Plan Chief Complaint/Hosp Course SUBJECTIVE: No events overnight. Patient was awake all night per report, now is sleeping, looks comfortable, no fevers ANTIMICROBIALS: Cancidas, Vanco, Zosyn. INDWELLINGS: The patient has triple lumen catheter and JPs, Cullen catheter, R abd pigtail. PHYSICAL EXAMINATION: GENERAL: This is a wasted, chronically ill-appearing, 56-year-old woman who is lethargic, sleeping, in no distress. HEENT: Head atraumatic, normocephalic. Sclerae icteric. Buccal mucosa dry. NECK: Supple. CHEST: Rise symmetrical. Breath sounds diminished at bases. HEART: S1, S2. ABDOMEN: Soft, bowel tones present. EXTREMITIES: With trace edema. ASSESSMENT: 1. Systemic inflammatory response syndrome with persistent leukocytosis and ongoing fevers secondary to #2==> improved. 2. Intraabdominal abscess, s/p CT-guided drainage 02/10/17. 3. Bilateral pulmonary emboli. 4. Metastatic ovarian cancer, status post tumor debulking on 02/02/2017. 5. Bilateral hydronephrosis, status post JJ stent placement on 01/24/2017. 6. Status post alpha hemolytic streptococci urinary tract infection. 7. Cachexia. 8. Encephalopathy. PLAN: Stable, continue present care, abx, await for fluid cx. Follow recommendations of specialists. [facility] staff Problems: CARLOS SOLIZ NP Feb 12, 2017 13:30
[2017-02-12] MEDS ORDERED: FENTAnyl 50 MCG/ML VIAL ONE (13:42)
[2017-02-12] MEDS ORDERED: MIDAZOLAM 1 MG/ML 2 ML INJ ONE (13:42)
[2017-02-12] MEDS: CASPOFUNGIN 50 MG in SOD CHLORIDE 0.9% 250 ML IVPB SCH (14:23)
--- NOTE | 2017-02-12 17:18 | CONS ---
Date/Time of Note Date/Time of Note DATE: 02/12/17 TIME: 17:17 Assessment/Plan Assessment/Plan Chief Complaint/Hosp Course ADVANCED OVARIAN CANCER WITH MALIGNANT ASCITES AND PERITONEAL carcinomatosis Large conglomerate pelvic mass inseparable from the uterus, sigmoid colon and rectum containing clumps of calcification suspicious for calcified fibroids and containing cystic areas. Large amount of free intraperitoneal fluid measuring 25 HU with caking of the omentum compatible with carcinomatosis. Centralization of bowel without evidence of bowel obstruction. Moderately severe right hydronephrosis and hydroureter to the level of the pelvic mass. There is moderate left pelvocaliectasis without ureteral dilatation. The bladder is quite distended with urine. POST cystoscopy and insertion of bilateral JJ stents CT CHEST - EDOUARD, EXCEPT SMALL L PLEURAL EFFUSION CA 125- 337 POST debulking surgery PATH- T3N0M1 High grade serous carcinoma. PLAN- CHEMO WHEN [facility] IVC filter cancelled today and was rescheduled tomorrow ANEMIA, MICROCYTOSIS COMPLEX ANEMIA W-UP= + COMPONENT ACD DROP H/H POSTOP SERIAL H/H PRBC NEEDED PER STANDING ORDERS D/W RN LEUKOCYTOSIS REACTIVE, PARTIALLY 2 TO Splenectomy PELVIC ABSCESS- POST DRAINAGE malignant ascites sp para 10.19. hydro AUR from ascites, sp ureteral stenting. ILEUS NG TPN Problems: Consultation Date/Type/Reason Admit Date/Time Jan 22, 2017 at 14:12 Initial Consult Date 01/27/17 Type of Consultation: [facility] Referring Provider: RAUL EUCEDA MD 24 HR Interval Summary Free Text/Dictation ALL NOTED D/W RN Exam/Review of Systems Vital Signs Vitals Vital Signs Date Time Temp Pulse Resp B/P Pulse Ox O2 Delivery O2 Flow Rate FiO2 02/12/17 16:30 89 02/12/17 15:37 98.4 18 123/73 100 02/12/17 08:05 2.0 02/12/17 00:00 Nasal Cannula Intake and Output 02/11/17 02/11/17 02/12/17 15:00 23:00 07:00 Intake Total 1660 ml 1202 ml Output Total 2232 ml 1255 ml Balance -572 ml -53 ml Exam GENERAL: Chronically ill-appearing lady intermittent confusion VITAL SIGNS: per chart NECK: Supple. No JVD or lymphadenopathy. CARDIAC EXAM: S1, S2. No added sounds or murmurs. CHEST: Bilateral rales. ABDOMEN: Soft, nontender. No guarding or rebound. EXTREMITIES: No cyanosis, clubbing or edema. NEUROLOGIC: Generalized weakness. No focal deficits. Results Result Diagram: 02/12/17 0641 02/12/17 0640 Results 24 hrs Laboratory Tests Test 02/11/17 20:29 02/11/17 22:54 02/12/17 01:09 02/12/17 06:31 Activated Partial Thromboplast Time 51.9 H Bedside Glucose 114 110 Vancomycin Level Trough 13.6 Test 02/12/17 06:40 02/12/17 06:41 02/12/17 14:39 Sodium Level 148 H Potassium Level 3.9 Chloride Level 111 H Carbon Dioxide Level 32 H Anion Gap 9 Blood Urea Nitrogen 15 Creatinine 0.54 Glucose Level 105 Calcium Level 8.3 L White Blood Count 14.8 H Red Blood Count 3.05 L Hemoglobin 8.4 L Hematocrit 26.8 L Mean Corpuscular Volume 87.9 Mean Corpuscular Hemoglobin 27.5 L Mean Corpuscular Hemoglobin Concent 31.3 L Red Cell Distribution Width 18.2 H Platelet Count 675 H Mean Platelet Volume 12.7 H Neutrophils % 85.3 H Lymphocytes % 3.9 L Monocytes % 9.1 Eosinophils % 0.7 Basophils % 0.1 Nucleated Red Blood Cells % 0.9 H Neutrophils # 12.6 H Lymphocytes # 0.6 L Monocytes # 1.4 H Eosinophils # 0.1 Basophils # 0.0 Nucleated Red Blood Cells # 0.1 H Activated Partial Thromboplast Time 40.9 H Phosphorus Level 3.2 Magnesium Level 1.8 Triglycerides Level 167 H Bedside Glucose 114 Medications Medications Current Medications Ondansetron HCl (Zofran Tab) 4 mg Q6H PRN PO NAUSEA AND/OR VOMITING; Start at 16:00 Acetaminophen (Tylenol Tab) 650 mg Q6H PRN PO PAIN LEVEL 1-3 OR FEVER Last administered on 02/06/17 23:54; Admin Dose 650 MG; Start 01/22/17 at 16:00; Status Future Hold Docusate Sodium (Colace) 100 mg Q12H PRN PO CONSTIPATION; Start 01/22/17 at 16 :00 Magnesium Hydroxide (Milk Of Mag) 30 ml DAILY PRN PO CONSTIPATION Last administered on 01/31/17 07:38; Admin Dose 30 ML; Start 01/22/17 at 16:00 Bisacodyl (Dulcolax) 5 mg DAILY PRN PO CONSTIPATION Last administered on 05:07; Admin Dose 5 MG; Start 01/22/17 at 16:00 Polyethylene Glycol (Miralax) 17 gm DAILY PO Last administered on 02/09/17 09: 00; Admin Dose 17 GM; Start 01/26/17 at 15:30 Sodium Biphosphate/ Sodium Phosphate (Fleet Enema) 133 ml DAILY PRN [place] CONSTIPATION Last administered on 01/27/17 06:17; Admin Dose 133 ML; Start at 20:30 Tolterodine Tartrate (Detrol La) 4 mg DAILY PO Last administered on 02/12/17 08:59; Admin Dose 4 MG; Start 01/27/17 at 15:30 Morphine Sulfate 2 mg 2 mg Q2H PRN IV PAIN LEVEL 7-10 Last administered on 02/12 08:59; Admin Dose 2 MG; Start 01/28/17 at 14:00 Ondansetron HCl/ Dextrose (Zofran Inj/D5W) 54 ml @ 108 mls/hr Q6H PRN IV NAUSEA AND/OR VOMITING; Start 01/31/17 at 12:00 Hydromorphone HCl (Dilaudid) 1 mg Q2H PRN IV PAIN LEVEL 6-10 Last administered on 02/12/17 16:49; Admin Dose 1 MG; Start 02/02/17 at 11:30 Diphenhydramine HCl (Benadryl) 25 mg Q6H PRN IV ITCHING Last administered on 17:19; Admin Dose 25 MG; Start 02/02/17 at 11:30 Acetaminophen (Tylenol Liquid) 650 mg Q4H PRN GTB PAIN AND OR ELEVATED TEMP Last administered on 02/06/17 16:19; Admin Dose 650 MG; Start 02/04/17 at 08:30 ; Status Future Hold Docusate Sodium 100 mg 100 mg BID NGT Last administered on 02/11/17 21:22; Admin Dose 100 MG; Start 02/05/17 at 09:00 Piperacillin Sod/ Tazobactam Sod 50 ml @ 200 mls/hr Q8 IVPB Last administered on 02/12/17 14:24; Admin Dose 200 MLS/HR; Start 02/05/17 at 14:00 Fat Emulsion Intravenous 250 ml @ 10 mls/hr Q24H IV Last administered on 20:07; Admin Dose 10 MLS/HR; Start 02/05/17 at 20:00 Total Parenteral Nutrition (Tpn) 1,000 ml @ 70 mls/hr [id number] IV Last administered on 02/12/17 10:00; Admin Dose 70 MLS/HR; Start 02/05/17 at 20:00 Furosemide (Lasix) 20 mg DAILY IV Last administered on 02/12/17 08:59; Admin Dose 20 MG; Start 02/07/17 at 11:00 Diagnostic Test (Pha) 1 ea 1 ea Q8 XX Last administered on 02/12/17 14:24; Admin Dose 1 EA; Start 02/07/17 at 22:00 Acetaminophen (Ofirmev 1000mg/ 100ml Iv) 100 ml @ 400 mls/hr Q6H PRN IVPB FEVER; Start 02/09/17 at 12:00 Lorazepam 1 mg 1 mg Q2 PRN IV AGITATION Last administered on 02/11/17 20:11; Admin Dose 1 MG; Start 02/10/17 at 12:30 Caspofungin 50 mg/ Sodium Chloride 250 ml @ 250 mls/hr Q24H IVPB Last administered on 02/12/17 14:23; Admin Dose 250 MLS/HR; Start 02/11/17 at 14:00 Vancomycin HCl/ Sodium Chloride (Vancocin/NS) 250 ml @ 83.333 mls/ hr Q12H IVPB Last administered on 02/12/17 14:24; Admin Dose 83.333 MLS/HR; Start 02/10/17 at 14:00 RAMIREZ YBARRA MD Feb 12, 2017 17:18
[2017-02-12] MEDS: FAT EMULSION 20% 250 ML IV SCH (21:22)
[2017-02-12] MEDS: LORAZEPAM 2 MG INJ IV PRN (21:45)
[2017-02-13] VITALS (13 sets, daily range): BP systolic 117–139; BP diastolic 70–80; PULSE 74–157; RESP 18–22
[2017-02-13] MEDS: TPN 1,000 ML IV SCH ×2 (01:04→13:19)
[2017-02-13] MEDS: VANCOMYCIN 1.5 GM in SOD CHLORIDE 0.9% 250 ML IVPB SCH (01:28)
[2017-02-13] MEDS: HEPARIN 1000 UNITS/ML 10 ML INJ IV PRN (02:19)
[2017-02-13] MEDS: HEPARIN 25000 UNITS/250 ML 250 ML IV SCH ×2 (02:19→06:04)
[2017-02-13] MEDS: LORAZEPAM 2 MG INJ IV PRN ×2 (03:07→11:04)
[2017-02-13] MEDS: ACCU-CHEK XX SCH ×3 (05:54→22:41)
[2017-02-13] MEDS: PIPER-TAZO 3.375 GM IV (PMX) 50 ML IVPB SCH ×3 (05:55→21:30)
[2017-02-13] MEDS: POLYETHYLENE GLYCOL 17 GM PACKET PO SCH (08:27)
[2017-02-13] MEDS: DOCUSATE SODIUM 10 MG/ML (10ML CUP) NGT SCH ×2 (08:27→19:46)
--- NOTE | 2017-02-13 08:38 | RADRPT ---
PROCEDURE: INFERIOR VENA CAVA FILTER PLACEMENT AND INFERIOR VENACAVOGRAM CLINICAL INDICATION: Pulmonary embolism. TECHNIQUE: The procedure, risks, benefits, complications and alternatives were explained to the patient. Risks including bleeding and infection were explained. In addition, risks regarding the inferior vena cava filter including filter migration, inferior vena cava the perforation, and caval thrombosis were ex plained. The patient understood and was willing to proceed. Consent was obtained. A procedural pause was performed. The patient's name, date of , and procedure to be performed were verified. The right common femoral vein was interrogated with ultrasound. It demonstrates normal compressibili ty without evidence for venous thrombosis. The right inguinal region was prepped and draped. One per cent lidocaine was used as local anesthesia. Using ultrasound guidance, a 21 gauge single wall punct ure needle was inserted into the right common femoral vein without difficulty. A 0.018 inch guidewir e was then advanced through the needle into the inferior vena cava with fluoroscopic guidance. A 5 F rench sheath was then exchanged for the needle. The original guidewire was removed and a 0.035 inch wire was then advanced into the inferior vena cava with fluoroscopic guidance. The tract was dilated to 10 Algerian and then the 10 Algerian sheath for the inferior vena cava filter was inserted. An infer ior venacavogram was performed through the sheath. Multiple digital images were obtained. The dilator was then removed. The sheath was flushed with normal saline. The introducer catheter pre loaded with the Cook Celect vena cava filter was then advanced. The sheath was retracted. The vena c arpan filter was then released just below the origin of the renal veins. The introducer catheter was r emoved. The placement was confirmed by a spot film radiograph. The sheath was removed and pressure w as held for approximately 10 minutes with good hemostasis. The patient tolerated the procedure well. COMPARISON: None. FINDINGS: The inferior vena cava is patent without evidence for filling defect to suggest thrombus. It has a n ormal diameter. The origin of the renal veins are at approximately at the mid L1 level. The final image demonstrates the superior tip of the inferior vena cava filter at the mid L1 level. Ultrasound images were recorded and stored in the patient's medical record. The ultrasound images d emonstrate the needle entering the right common femoral vein. There are bilateral ureteral stents in satisfactory position. A drainage catheter is present in the right upper quadrant. A nasogastric tube is present with the tip in the stomach. There is a large pe lvic mass with displacement of the right iliac vein bilateral ureters in the pelvis laterally. Fluoroscopy time is 0.2 minutes and 22 images were obtained. IMPRESSION: 1. Inferior venacavogram performed as indicated above. 2. Successful placement of inferior vena cava filter. RPTAT: QQ .Eliud Yoder MD, MD Date Time Electronically viewed and signed by .Eliud Yoder MD, on 02/12/2017 14:53 .R/
[2017-02-13 09:06] LABS: ABNORMAL IP MESSAGE 1; BASOPHILS % 0.1 % (0.0-2.0); EOSINOPHILS # 0.1 10^3/ul (0.0-0.5); EOSINOPHILS % 0.7 % (0.0-7.0); HEMATOCRIT 28.4 % (37.0-47.0); HEMOGLOBIN 8.4 g/dl (12.0-16.0); LYMPHOCYTES # 0.6 10^3/ul (0.8-2.9); LYMPHOCYTES % 3.7 % (15.0-51.0); MEAN CORPUSCULAR HEMOGLOBIN 26.5 pg (29.0-33.0); MEAN CORPUSCULAR HGB CONC 29.6 g/dl (32.0-37.0); MEAN CORPUSCULAR VOLUME 89.6 fl (82.0-101.0); MEAN PLATELET VOLUME 13.1 fl (7.4-10.4); MONOCYTE # 1.2 10^3/ul (0.3-0.9); MONOCYTES % 7.7 % (0.0-11.0); NEUTROPHIL # 13.3 10^3/ul (1.6-7.5); NEUTROPHILS % 86.6 % (39.0-77.0); NUCLEATED RED BLOOD CELLS # 0.1 10^3/ul (0.0-0.0); NUCLEATED RED BLOOD CELLS% 0.8 /100WBC (0.0-0.0); RED BLOOD COUNT 3.17 10^6/ul (4.20-5.40); RED CELL DISTRIBUTION WIDTH 18.9 % (11.5-14.5); WHITE BLOOD COUNT 15.3 10^3/ul (4.8-10.8)
[2017-02-13 09:20] LABS: PLATELET COUNT 695 10^3/UL (140-415); POSITIVE DIFF @See below
[2017-02-13 09:31] LABS: CALCIUM 8.2 mg/dl (8.4-10.2); CREATININE 0.56 mg/dl (0.44-1.00); MAGNESIUM 1.9 mg/dl (1.7-2.5); PHOSPHORUS 3.2 mg/dl (2.5-4.9)
[2017-02-13] MEDS: HYDROmorphONE 0.5 MG/0.5 ML SYG IV PRN ×4 (09:33→22:09)
[2017-02-13] MEDS: FUROSEMIDE 20 MG INJ IV SCH (09:33)
[2017-02-13] MEDS: TOLTERODINE (SR) 4 MG CAP PO SCH (09:33)
[2017-02-13 09:37] LABS: POTASSIUM 2.9 mmol/L (3.5-5.1)
--- NOTE | 2017-02-13 09:51 | CONS ---
Date/Time of Note Date/Time of Note DATE: 02/13/17 TIME: 09:51 Assessment/Plan Assessment/Plan Chief Complaint/Hosp Course ADVANCED OVARIAN CANCER WITH MALIGNANT ASCITES AND PERITONEAL carcinomatosis Large conglomerate pelvic mass inseparable from the uterus, sigmoid colon and rectum containing clumps of calcification suspicious for calcified fibroids and containing cystic areas. Large amount of free intraperitoneal fluid measuring 25 HU with caking of the omentum compatible with carcinomatosis. Centralization of bowel without evidence of bowel obstruction. Moderately severe right hydronephrosis and hydroureter to the level of the pelvic mass. There is moderate left pelvocaliectasis without ureteral dilatation. The bladder is quite distended with urine. POST cystoscopy and insertion of bilateral JJ stents CT CHEST - EDOUARD, EXCEPT SMALL L PLEURAL EFFUSION CA 125- 337 POST debulking surgery PATH- T3N0M1 High grade serous carcinoma. PLAN- CHEMO [facility] IVC filter cancelled today and was rescheduled tomorrow ANEMIA, MICROCYTOSIS COMPLEX ANEMIA W-UP= + COMPONENT ACD DROP H/H POSTOP SERIAL H/H PRBC NEEDED PER STANDING ORDERS D/W RN LEUKOCYTOSIS REACTIVE, PARTIALLY 2 TO Splenectomy PELVIC ABSCESS- POST DRAINAGE malignant ascites sp para 10.19. hydro AUR from ascites, sp ureteral stenting. ILEUS NG TPN Problems: Consultation Date/Type/Reason Admit Date/Time Jan 22, 2017 at 14:12 Initial Consult Date 01/27/17 Type of Consultation: [facility] Referring Provider: RAUL EUCEDA MD 24 HR Interval Summary Free Text/Dictation D/W RN NO NEW EVENTS Exam/Review of Systems Vital Signs Vitals Vital Signs Date Time Temp Pulse Resp B/P Pulse Ox O2 Delivery O2 Flow Rate FiO2 02/13/17 08:39 2.0 02/13/17 08:29 97.7 86 22 125/75 97 02/13/17 03:41 Nasal Cannula Intake and Output 02/12/17 02/12/17 02/13/17 15:00 23:00 07:00 Intake Total 150 ml 910 ml Output Total 2230 ml 70 ml Balance -2080 ml 840 ml Exam GENERAL: Chronically ill-appearing lady intermittent confusion VITAL SIGNS: per chart NECK: Supple. No JVD or lymphadenopathy. CARDIAC EXAM: S1, S2. No added sounds or murmurs. CHEST: Bilateral rales. ABDOMEN: Soft, nontender. No guarding or rebound EXTREMITIES: No cyanosis, clubbing or edema. NEUROLOGIC: Generalized weakness. No focal deficits. Results Result Diagram: 02/13/17 0758 02/13/17 0758 Results 24 hrs Laboratory Tests Test 02/12/17 14:39 02/12/17 17:38 02/12/17 21:48 02/13/17 00:41 Bedside Glucose 114 119 Activated Partial Thromboplast Time 30.3 39.4 H Test 02/13/17 05:52 02/13/17 07:58 Bedside Glucose 119 White Blood Count 15.3 H Red Blood Count 3.17 L Hemoglobin 8.4 L Hematocrit 28.4 L Mean Corpuscular Volume 89.6 Mean Corpuscular Hemoglobin 26.5 L Mean Corpuscular Hemoglobin Concent 29.6 L Red Cell Distribution Width 18.9 H Platelet Count 695 H Mean Platelet Volume 13.1 H Neutrophils % 86.6 H Lymphocytes % 3.7 L Monocytes % 7.7 Eosinophils % 0.7 Basophils % 0.1 Nucleated Red Blood Cells % 0.8 H Neutrophils # 13.3 H Lymphocytes # 0.6 L Monocytes # 1.2 H Eosinophils # 0.1 Basophils # 0.0 Nucleated Red Blood Cells # 0.1 H Activated Partial Thromboplast Time 79.7 *H Sodium Level 148 H Potassium Level 2.9 *L Chloride Level 109 Carbon Dioxide Level 33 H Anion Gap 9 Blood Urea Nitrogen 15 Creatinine 0.56 Glucose Level 114 Calcium Level 8.2 L Phosphorus Level 3.2 Magnesium Level 1.9 Medications Medications Current Medications Ondansetron HCl (Zofran Tab) 4 mg Q6H PRN PO NAUSEA AND/OR VOMITING; Start at 16:00 Acetaminophen (Tylenol Tab) 650 mg Q6H PRN PO PAIN LEVEL 1-3 OR FEVER Last administered on 02/06/17 23:54; Admin Dose 650 MG; Start 01/22/17 at 16:00; Status Future Hold Docusate Sodium (Colace) 100 mg Q12H PRN PO CONSTIPATION; Start 01/22/17 at 16 :00 Magnesium Hydroxide (Milk Of Mag) 30 ml DAILY PRN PO CONSTIPATION Last administered on 01/31/17 07:38; Admin Dose 30 ML; Start 01/22/17 at 16:00 Bisacodyl (Dulcolax) 5 mg DAILY PRN PO CONSTIPATION Last administered on 05:07; Admin Dose 5 MG; Start 01/22/17 at 16:00 Polyethylene Glycol (Miralax) 17 gm DAILY PO Last administered on 02/09/17 09: 00; Admin Dose 17 GM; Start 01/26/17 at 15:30 Sodium Biphosphate/ Sodium Phosphate (Fleet Enema) 133 ml DAILY PRN [place] CONSTIPATION Last administered on 01/27/17 06:17; Admin Dose 133 ML; Start at 20:30 Tolterodine Tartrate (Detrol La) 4 mg DAILY PO Last administered on 02/13/17 09:33; Admin Dose 4 MG; Start 01/27/17 at 15:30 Morphine Sulfate 2 mg 2 mg Q2H PRN IV PAIN LEVEL 7-10 Last administered on 02/12 08:59; Admin Dose 2 MG; Start 01/28/17 at 14:00 Ondansetron HCl/ Dextrose (Zofran Inj/D5W) 54 ml @ 108 mls/hr Q6H PRN IV NAUSEA AND/OR VOMITING; Start 01/31/17 at 12:00 Hydromorphone HCl (Dilaudid) 1 mg Q2H PRN IV PAIN LEVEL 6-10 Last administered on 02/13/17 09:33; Admin Dose 1 MG; Start 02/02/17 at 11:30 Diphenhydramine HCl (Benadryl) 25 mg Q6H PRN IV ITCHING Last administered on 17:19; Admin Dose 25 MG; Start 02/02/17 at 11:30 Acetaminophen (Tylenol Liquid) 650 mg Q4H PRN GTB PAIN AND OR ELEVATED TEMP Last administered on 02/06/17 16:19; Admin Dose 650 MG; Start 02/04/17 at 08:30 ; Status Future Hold Docusate Sodium 100 mg 100 mg BID NGT Last administered on 02/11/17 21:22; Admin Dose 100 MG; Start 02/05/17 at 09:00 Piperacillin Sod/ Tazobactam Sod 50 ml @ 200 mls/hr Q8 IVPB Last administered on 02/13/17 05:55; Admin Dose 200 MLS/HR; Start 02/05/17 at 14:00 Fat Emulsion Intravenous 250 ml @ 10 mls/hr Q24H IV Last administered on 21:22; Admin Dose 10 MLS/HR; Start 02/05/17 at 20:00 Total Parenteral Nutrition (Tpn) 1,000 ml @ 70 mls/hr [id number] IV Last administered on 02/13/17 01:04; Admin Dose 70 MLS/HR; Start 02/05/17 at 20:00 Furosemide (Lasix) 20 mg DAILY IV Last administered on 02/13/17 09:33; Admin Dose 20 MG; Start 02/07/17 at 11:00 Diagnostic Test (Pha) 1 ea 1 ea Q8 XX Last administered on 02/13/17 05:54; Admin Dose 1 EA; Start 02/07/17 at 22:00 Acetaminophen (Ofirmev 1000mg/ 100ml Iv) 100 ml @ 400 mls/hr Q6H PRN IVPB FEVER; Start 02/09/17 at 12:00 Lorazepam 1 mg 1 mg Q2 PRN IV AGITATION Last administered on 02/13/17 03:07; Admin Dose 1 MG; Start 02/10/17 at 12:30 Caspofungin 50 mg/ Sodium Chloride 250 ml @ 250 mls/hr Q24H IVPB Last administered on 02/12/17 14:23; Admin Dose 250 MLS/HR; Start 02/11/17 at 14:00 Vancomycin HCl/ Sodium Chloride (Vancocin/NS) 250 ml @ 83.333 mls/ hr Q12H IVPB Last administered on 02/13/17 01:28; Admin Dose 83.333 MLS/HR; Start at 14:00 RAMIREZ YBARRA MD Feb 13, 2017 09:51
[2017-02-13] MEDS: POTASSIUM CHLORIDE 250 ML IVPB SCH ×2 (11:04→15:28)
--- NOTE | 2017-02-13 11:36 | PN ---
Date/Time of Note Date/Time of Note DATE: 02/13/17 TIME: 11:33 Assessment/Plan VTE Prophylaxis VTE Prophylaxis Intervention: heparin Lines/Catheters IV [facility] Central Line Central line still needed: Yes Urinary Cath still in place: Yes Reason Cath still needed: urinary retention Assessment/Plan Chief Complaint/Hosp Course Assessment/Plan: 56 yo F with known stage 4 ovarian Ca here admitted for abd pain from malignant ascites sp para 10.19, sp ureteral stenting as well sp debulking surgery on February 03. ovarian cancer: Status post debulking surgery postop day # 10, extubated 5 days ago, sp pressors but off these now, onc and medical assistant ob gyn onc still following. 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 Empiric abx started 02.05 for fever, urine cultures negative, CXR without focal consolidation. respiratory culture with NRF. + blood cultures as well, now with bilateral pulmonary embolisms. - Continue pain medications, TPN for now, continue abx as per ID caspofungin and Vanco - Follow-up gynecologic onc, pulm, and heme onc recommendations -per discussion with hematology team yesterday patient may begin radiation therapy early next week, and depending on what she does with that, chemotherapy afterwards. - f/u PT/OT evals -continue antibiotics -For bilateral pulmonary embolisms, status post IVC filter placement yesterday, continue heparin drip for now 2. subclinical hypothyroid: outpatient f/u 3. Low hemoglobin: Patient received blood transfusion 4 days ago. Hemoglobin stable presently -Continue to monitor for now 4. Hypernatremia: Mildly elevated (148) again for the third straight day despite D5W IV fluids given in the last 24 hours -Monitor for now, consider free water, recheck BMP in the morning Problems: Subjective 24 Hr Interval Summary Free Text/Dictation Patient had IVC filter placed yesterday, appears slightly more alert today. Back on heparin drip, no bleeding issues. No acute events overnight. Exam/Review of Systems Vital Signs Vitals Vital Signs Date Time Temp Pulse Resp B/P Pulse Ox O2 Delivery O2 Flow Rate FiO2 02/13/17 11:30 98.5 85 18 139/78 99 02/13/17 08:39 2.0 02/13/17 03:41 Nasal Cannula Intake and Output 02/12/17 02/12/17 02/13/17 15:00 23:00 07:00 Intake Total 150 ml 910 ml Output Total 2230 ml 70 ml Balance -2080 ml 840 ml Exam Gen: Less lethargic today, opens eyes occasionally HEENT: PERRL, EOMI, anicteric Neck: Trach midline Respiratory: Clear anterior, some diminished BLL Cardiovascular: NSR on tele, radial pulses 2+ bilaterally Gastrointestinal: Soft, bilateral J/P drains Extremities: Warm, no cyanosis, trace edema Neurological: No focal deficits Results Result Diagram: 02/13/17 0758 02/13/17 0758 Results 24 hrs Laboratory Tests Test 02/12/17 14:39 02/12/17 17:38 02/12/17 21:48 02/13/17 00:41 Bedside Glucose 114 119 Activated Partial Thromboplast Time 30.3 39.4 H Test 02/13/17 05:52 02/13/17 07:58 Bedside Glucose 119 White Blood Count 15.3 H Red Blood Count 3.17 L Hemoglobin 8.4 L Hematocrit 28.4 L Mean Corpuscular Volume 89.6 Mean Corpuscular Hemoglobin 26.5 L Mean Corpuscular Hemoglobin Concent 29.6 L Red Cell Distribution Width 18.9 H Platelet Count 695 H Mean Platelet Volume 13.1 H Neutrophils % 86.6 H Lymphocytes % 3.7 L Monocytes % 7.7 Eosinophils % 0.7 Basophils % 0.1 Nucleated Red Blood Cells % 0.8 H Neutrophils # 13.3 H Lymphocytes # 0.6 L Monocytes # 1.2 H Eosinophils # 0.1 Basophils # 0.0 Nucleated Red Blood Cells # 0.1 H Activated Partial Thromboplast Time 79.7 *H Sodium Level 148 H Potassium Level 2.9 *L Chloride Level 109 Carbon Dioxide Level 33 H Anion Gap 9 Blood Urea Nitrogen 15 Creatinine 0.56 Glucose Level 114 Calcium Level 8.2 L Phosphorus Level 3.2 Magnesium Level 1.9 Medications Medications Current Medications Ondansetron HCl (Zofran Tab) 4 mg Q6H PRN PO NAUSEA AND/OR VOMITING; Start at 16:00 Acetaminophen (Tylenol Tab) 650 mg Q6H PRN PO PAIN LEVEL 1-3 OR FEVER Last administered on 02/06/17t 23:54; Admin Dose 650 MG; Start 01/22/17 at 16:00; Status Future Hold Docusate Sodium (Colace) 100 mg Q12H PRN PO CONSTIPATION; Start 01/22/17 at 16 :00 Magnesium Hydroxide (Milk Of Mag) 30 ml DAILY PRN PO CONSTIPATION Last administered on 01/31/17 07:38; Admin Dose 30 ML; Start 01/22/17 at 16:00 Bisacodyl (Dulcolax) 5 mg DAILY PRN PO CONSTIPATION Last administered on 05:07; Admin Dose 5 MG; Start 01/22/17 at 16:00 Polyethylene Glycol (Miralax) 17 gm DAILY PO Last administered on 02/09/17 09: 00; Admin Dose 17 GM; Start 01/26/17 at 15:30 Sodium Biphosphate/ Sodium Phosphate (Fleet Enema) 133 ml DAILY PRN [place] CONSTIPATION Last administered on 01/27/17 06:17; Admin Dose 133 ML; Start at 20:30 Tolterodine Tartrate (Detrol La) 4 mg DAILY PO Last administered on 02/13/17 09:33; Admin Dose 4 MG; Start 01/27/17 at 15:30 Morphine Sulfate 2 mg 2 mg Q2H PRN IV PAIN LEVEL 7-10 Last administered on 02/12 08:59; Admin Dose 2 MG; Start 01/28/17 at 14:00 Ondansetron HCl/ Dextrose (Zofran Inj/D5W) 54 ml @ 108 mls/hr Q6H PRN IV NAUSEA AND/OR VOMITING; Start 01/31/17 at 12:00 Hydromorphone HCl (Dilaudid) 1 mg Q2H PRN IV PAIN LEVEL 6-10 Last administered on 02/13/17 09:33; Admin Dose 1 MG; Start 02/02/17 at 11:30 Diphenhydramine HCl (Benadryl) 25 mg Q6H PRN IV ITCHING Last administered on 17:19; Admin Dose 25 MG; Start 02/02/17 at 11:30 Acetaminophen (Tylenol Liquid) 650 mg Q4H PRN GTB PAIN AND OR ELEVATED TEMP Last administered on 02/06/17 16:19; Admin Dose 650 MG; Start 02/04/17 at 08:30 ; Status Future Hold Docusate Sodium 100 mg 100 mg BID NGT Last administered on 02/11/17 21:22; Admin Dose 100 MG; Start 02/05/17 at 09:00 Piperacillin Sod/ Tazobactam Sod 50 ml @ 200 mls/hr Q8 IVPB Last administered on 02/13/17 05:55; Admin Dose 200 MLS/HR; Start 02/05/17 at 14:00 Fat Emulsion Intravenous 250 ml @ 10 mls/hr Q24H IV Last administered on 21:22; Admin Dose 10 MLS/HR; Start 02/05/17 at 20:00 Total Parenteral Nutrition (Tpn) 1,000 ml @ 70 mls/hr [id number] IV Last administered on 02/13/17 01:04; Admin Dose 70 MLS/HR; Start 02/05/17 at 20:00 Furosemide (Lasix) 20 mg DAILY IV Last administered on 02/13/17 09:33; Admin Dose 20 MG; Start 02/07/17 at 11:00 Diagnostic Test (Pha) 1 ea 1 ea Q8 XX Last administered on 02/13/17 05:54; Admin Dose 1 EA; Start 02/07/17 at 22:00 Acetaminophen (Ofirmev 1000mg/ 100ml Iv) 100 ml @ 400 mls/hr Q6H PRN IVPB FEVER; Start 02/09/17 at 12:00 Lorazepam 1 mg 1 mg Q2 PRN IV AGITATION Last administered on 02/13/17 11:04; Admin Dose 1 MG; Start 02/10/17 at 12:30 Caspofungin 50 mg/ Sodium Chloride 250 ml @ 250 mls/hr Q24H IVPB Last administered on 02/12/17 14:23; Admin Dose 250 MLS/HR; Start 02/11/17 at 14:00 Vancomycin HCl 1.5 gm/Sodium Chloride 250 ml @ 83.333 mls/ hr Q12H IVPB Last administered on 02/13/17 01:28; Admin Dose 83.333 MLS/HR; Start 02/10/17 at 14 :00 Potassium Chloride (KCl 40 MEQ/250 ML NS) 250 ml @ 62.5 mls/hr Q4H IVPB Last administered on 02/13/17 11:04; Admin Dose 62.5 MLS/HR; Start 02/13/17 at 11: 00; Stop 02/13/17 at 18:59 KENTRELL MACIAS Feb 13, 2017 11:36
[2017-02-13] MEDS ORDERED: DEXTROSE 5% 1,000 ML IV SCH (12:00)
--- NOTE | 2017-02-13 13:11 | CONS ---
Date/Time of Note Date/Time of Note DATE: 02/13/17 TIME: 13:09 Consult Date/Type/Reason Admit Date/Time Jan 22, 2017 at 14:12 Initial Consult Date 02/03/17 Type of Consultation: Pulmonary Ordering Provider: RAUL EUCEDA MD Subjective Patient remains stable following IVC filter placement Objective Vital Signs Date Time Temp Pulse Resp B/P Pulse Ox O2 Delivery O2 Flow Rate FiO2 02/13/17 12:00 88 02/13/17 11:30 98.5 18 139/78 99 02/13/17 08:39 2.0 02/13/17 03:41 Nasal Cannula Intake and Output 02/12/17 02/12/17 02/13/17 14:59 22:59 06:59 Intake Total 150 ml 910 ml Output Total 155 ml 2230 ml 70 ml Balance -155 ml -2080 ml 840 ml Exam GENERAL: Well-developed gentleman comfortable at rest no acute distress VITAL SIGNS: per chart NECK: Supple. No JVD or lymphadenopathy. CARDIAC EXAM: S1, S2. No added sounds or murmurs. CHEST: clear bilaterally, No added sounds, rales or wheezes, chest tubes in place ABDOMEN: Soft, nontender. No guarding or rebound. EXTREMITIES: No cyanosis, clubbing or edema. NEUROLOGIC: Generalized weakness. No focal deficits. Results/Medications Result Diagram: 02/13/17 0758 02/13/17 0758 Results 24 hrs Laboratory Tests Test 02/12/17 14:39 02/12/17 17:38 02/12/17 21:48 02/13/17 00:41 Bedside Glucose 114 119 Activated Partial Thromboplast Time 30.3 39.4 H Test 02/13/17 05:52 02/13/17 07:58 Bedside Glucose 119 White Blood Count 15.3 H Red Blood Count 3.17 L Hemoglobin 8.4 L Hematocrit 28.4 L Mean Corpuscular Volume 89.6 Mean Corpuscular Hemoglobin 26.5 L Mean Corpuscular Hemoglobin Concent 29.6 L Red Cell Distribution Width 18.9 H Platelet Count 695 H Mean Platelet Volume 13.1 H Neutrophils % 86.6 H Lymphocytes % 3.7 L Monocytes % 7.7 Eosinophils % 0.7 Basophils % 0.1 Nucleated Red Blood Cells % 0.8 H Neutrophils # 13.3 H Lymphocytes # 0.6 L Monocytes # 1.2 H Eosinophils # 0.1 Basophils # 0.0 Nucleated Red Blood Cells # 0.1 H Activated Partial Thromboplast Time 79.7 *H Sodium Level 148 H Potassium Level 2.9 *L Chloride Level 109 Carbon Dioxide Level 33 H Anion Gap 9 Blood Urea Nitrogen 15 Creatinine 0.56 Glucose Level 114 Calcium Level 8.2 L Phosphorus Level 3.2 Magnesium Level 1.9 Medications Current Medications Ondansetron HCl (Zofran Tab) 4 mg Q6H PRN PO NAUSEA AND/OR VOMITING; Start at 16:00 Acetaminophen (Tylenol Tab) 650 mg Q6H PRN PO PAIN LEVEL 1-3 OR FEVER Last administered on 02/06/17 23:54; Admin Dose 650 MG; Start 01/22/17 at 16:00; Status Future Hold Docusate Sodium (Colace) 100 mg Q12H PRN PO CONSTIPATION; Start 01/22/17 at 16 :00 Magnesium Hydroxide (Milk Of Mag) 30 ml DAILY PRN PO CONSTIPATION Last administered on 01/31/17 07:38; Admin Dose 30 ML; Start 01/22/17 at 16:00 Bisacodyl (Dulcolax) 5 mg DAILY PRN PO CONSTIPATION Last administered on 05:07; Admin Dose 5 MG; Start 01/22/17 at 16:00 Polyethylene Glycol (Miralax) 17 gm DAILY PO Last administered on 02/09/17 09: 00; Admin Dose 17 GM; Start 01/26/17 at 15:30 Sodium Biphosphate/ Sodium Phosphate (Fleet Enema) 133 ml DAILY PRN [place] CONSTIPATION Last administered on 01/27/17 06:17; Admin Dose 133 ML; Start at 20:30 Tolterodine Tartrate (Detrol La) 4 mg DAILY PO Last administered on 02/13/17 09:33; Admin Dose 4 MG; Start 01/27/17 at 15:30 Morphine Sulfate 2 mg 2 mg Q2H PRN IV PAIN LEVEL 7-10 Last administered on 02/12 08:59; Admin Dose 2 MG; Start 01/28/17 at 14:00 Ondansetron HCl/ Dextrose (Zofran Inj/D5W) 54 ml @ 108 mls/hr Q6H PRN IV NAUSEA AND/OR VOMITING; Start 01/31/17 at 12:00 Hydromorphone HCl (Dilaudid) 1 mg Q2H PRN IV PAIN LEVEL 6-10 Last administered on 02/13/17 09:33; Admin Dose 1 MG; Start 02/02/17 at 11:30 Diphenhydramine HCl (Benadryl) 25 mg Q6H PRN IV ITCHING Last administered on 17:19; Admin Dose 25 MG; Start 02/02/17 at 11:30 Acetaminophen (Tylenol Liquid) 650 mg Q4H PRN GTB PAIN AND OR ELEVATED TEMP Last administered on 02/06/17 16:19; Admin Dose 650 MG; Start 02/04/17 at 08:30 ; Status Future Hold Docusate Sodium 100 mg 100 mg BID NGT Last administered on 02/11/17 21:22; Admin Dose 100 MG; Start 02/05/17 at 09:00 Piperacillin Sod/ Tazobactam Sod 50 ml @ 200 mls/hr Q8 IVPB Last administered on 02/13/17 05:55; Admin Dose 200 MLS/HR; Start 02/05/17 at 14:00 Fat Emulsion Intravenous 250 ml @ 10 mls/hr Q24H IV Last administered on 21:22; Admin Dose 10 MLS/HR; Start 02/05/17 at 20:00 Total Parenteral Nutrition (Tpn) 1,000 ml @ 70 mls/hr [id number] IV Last administered on 02/13/17 01:04; Admin Dose 70 MLS/HR; Start 02/05/17 at 20:00 Furosemide (Lasix) 20 mg DAILY IV Last administered on 02/13/17 09:33; Admin Dose 20 MG; Start 02/07/17 at 11:00; Status Future Hold Diagnostic Test (Pha) 1 ea 1 ea Q8 XX Last administered on 02/13/17 05:54; Admin Dose 1 EA; Start 02/07/17 at 22:00 Acetaminophen (Ofirmev 1000mg/ 100ml Iv) 100 ml @ 400 mls/hr Q6H PRN IVPB FEVER; Start 02/09/17 at 12:00 Lorazepam 1 mg 1 mg Q2 PRN IV AGITATION Last administered on 11/10/17at 11:04; Admin Dose 1 MG; Start 02/10/17 at 12:30 Caspofungin 50 mg/ Sodium Chloride 250 ml @ 250 mls/hr Q24H IVPB Last administered on 02/12/17 14:23; Admin Dose 250 MLS/HR; Start 02/11/17 at 14:00 Vancomycin HCl 1.5 gm/Sodium Chloride 250 ml @ 83.333 mls/ hr Q12H IVPB Last administered on 02/13/17 01:28; Admin Dose 83.333 MLS/HR; Start 02/10/17 at 14 :00 Potassium Chloride 250 ml @ 62.5 mls/hr Q4H IVPB Last administered on 11:04; Admin Dose 62.5 MLS/HR; Start 02/13/17 at 11:00; Stop 02/13/17 at 18:59 Dextrose (D5W) 1,000 ml @ 75 mls/hr [id number] IV ; Start 02/13/17 at 12:00; Stop 02/13/17 at 23:55 Assessment/Plan Chief Complaint/Hosp Course Assessment 1. Hypoxemic respiratory failure with alveolar hypoventilation neuromuscular weakness, now extubated. Bilateral pulmonary emboli. 2. Recent diagnosis of stage IV ovarian cancer status post hysterectomy with bilateral salpingo-oophorectomy 3. Postop ileus slowly resolving 4. Status post septic shock. 5. Mild leukocytosis. 6. Postop delirium, better today. Plan 1. Avoid sedatives, PT eval encourage out of bed 2. Aspiration precautions. 3. Continue postop surgical recommendations 4. DVT GI prophylaxis 5. Status post IVC filter placement. Consider DC anticoagulation and patient is increased bleeding risk. 6. Status post CT-guided drainage of right upper quadrant fluid collection. 7. Iron studies Ferrlecit. 8. Correct electrolytes. Consider transfer to [facility]. Problems: SERA NAVARRO MD, [facility] Feb 13, 2017 13:11
[2017-02-13] MEDS: CASPOFUNGIN 50 MG in SOD CHLORIDE 0.9% 250 ML IVPB SCH (13:18)
--- NOTE | 2017-02-13 13:22 | CONS ---
Date/Time of Note Date/Time of Note DATE: 02/13/17 TIME: 13:20 Assessment/Plan Assessment/Plan Chief Complaint/Hosp Course SUBJECTIVE: No events overnight. Patient is awake, looks comfortable, no fevers ANTIMICROBIALS: Cancidas, Vanco, Zosyn. INDWELLINGS: Triple lumen catheter JPs, Cullen catheter, R abd pigtail. PHYSICAL EXAMINATION: GENERAL: This is a wasted, chronically ill-appearing, 56-year-old woman who is lethargic, sleeping, in no distress. HEENT: Head atraumatic, normocephalic. Sclerae icteric. Buccal mucosa dry. NECK: Supple. CHEST: Rise symmetrical. Breath sounds diminished at bases. HEART: S1, S2. ABDOMEN: Soft, bowel tones present. EXTREMITIES: With trace edema. ASSESSMENT: 1. Systemic inflammatory response syndrome with persistent leukocytosis and ongoing fevers secondary to #2==> improved. 2. Intraabdominal abscess, s/p CT-guided drainage 02/10/17. 3. Bilateral pulmonary emboli. 4. Metastatic ovarian cancer, status post tumor debulking on 02/02/2017. 5. Bilateral hydronephrosis, status post JJ stent placement on 01/24/2017. 6. Status post alpha hemolytic streptococci urinary tract infection. 7. Cachexia. 8. Encephalopathy. PLAN: Remains stable, fluid cx negative, will keep on Zosyn for now, dc Vanco and Cancidas, continue present care. Follow recommendations of specialists. DW staff Problems: Consultation Date/Type/Reason Admit Date/Time Jan 22, 2017 at 14:12 Initial Consult Date 02/03/17 Type of Consultation: ID Referring Provider: RAUL EUCEDA MD Exam/Review of Systems Vital Signs Vitals Vital Signs Date Time Temp Pulse Resp B/P Pulse Ox O2 Delivery O2 Flow Rate FiO2 02/13/17 12:00 88 02/13/17 11:30 98.5 18 139/78 99 02/13/17 08:39 2.0 02/13/17 03:41 Nasal Cannula Intake and Output 02/12/17 02/12/17 02/13/17 14:59 22:59 06:59 Intake Total 150 ml 910 ml Output Total 155 ml 2230 ml 70 ml Balance -155 ml -2080 ml 840 ml Results Result Diagram: 02/13/17 0758 02/13/17 0758 Results 24 hrs Laboratory Tests Test 02/12/17 14:39 02/12/17 17:38 02/12/17 21:48 02/13/17 00:41 Bedside Glucose 114 119 Activated Partial Thromboplast Time 30.3 39.4 H Test 02/13/17 05:52 02/13/17 07:58 Bedside Glucose 119 White Blood Count 15.3 H Red Blood Count 3.17 L Hemoglobin 8.4 L Hematocrit 28.4 L Mean Corpuscular Volume 89.6 Mean Corpuscular Hemoglobin 26.5 L Mean Corpuscular Hemoglobin Concent 29.6 L Red Cell Distribution Width 18.9 H Platelet Count 695 H Mean Platelet Volume 13.1 H Neutrophils % 86.6 H Lymphocytes % 3.7 L Monocytes % 7.7 Eosinophils % 0.7 Basophils % 0.1 Nucleated Red Blood Cells % 0.8 H Neutrophils # 13.3 H Lymphocytes # 0.6 L Monocytes # 1.2 H Eosinophils # 0.1 Basophils # 0.0 Nucleated Red Blood Cells # 0.1 H Activated Partial Thromboplast Time 79.7 *H Sodium Level 148 H Potassium Level 2.9 *L Chloride Level 109 Carbon Dioxide Level 33 H Anion Gap 9 Blood Urea Nitrogen 15 Creatinine 0.56 Glucose Level 114 Calcium Level 8.2 L Phosphorus Level 3.2 Magnesium Level 1.9 Medications Medications Current Medications Ondansetron HCl (Zofran Tab) 4 mg Q6H PRN PO NAUSEA AND/OR VOMITING; Start at 16:00 Acetaminophen (Tylenol Tab) 650 mg Q6H PRN PO PAIN LEVEL 1-3 OR FEVER Last administered on 02/06/17 23:54; Admin Dose 650 MG; Start 01/22/17 at 16:00; Status Future Hold Docusate Sodium (Colace) 100 mg Q12H PRN PO CONSTIPATION; Start 01/22/17 at 16 :00 Magnesium Hydroxide (Milk Of Mag) 30 ml DAILY PRN PO CONSTIPATION Last administered on 01/31/17 07:38; Admin Dose 30 ML; Start 01/22/17 at 16:00 Bisacodyl (Dulcolax) 5 mg DAILY PRN PO CONSTIPATION Last administered on 05:07; Admin Dose 5 MG; Start 01/22/17 at 16:00 Polyethylene Glycol (Miralax) 17 gm DAILY PO Last administered on 02/09/17 09: 00; Admin Dose 17 GM; Start 01/26/17 at 15:30 Sodium Biphosphate/ Sodium Phosphate (Fleet Enema) 133 ml DAILY PRN [place] CONSTIPATION Last administered on 01/27/17 06:17; Admin Dose 133 ML; Start at 20:30 Tolterodine Tartrate (Detrol La) 4 mg DAILY PO Last administered on 02/13/17 09:33; Admin Dose 4 MG; Start 01/27/17 at 15:30 Morphine Sulfate 2 mg 2 mg Q2H PRN IV PAIN LEVEL 7-10 Last administered on 02/12 08:59; Admin Dose 2 MG; Start 01/28/17 at 14:00 Ondansetron HCl/ Dextrose (Zofran Inj/D5W) 54 ml @ 108 mls/hr Q6H PRN IV NAUSEA AND/OR VOMITING; Start 01/31/17 at 12:00 Hydromorphone HCl (Dilaudid) 1 mg Q2H PRN IV PAIN LEVEL 6-10 Last administered on 02/13/17 09:33; Admin Dose 1 MG; Start 02/02/17 at 11:30 Diphenhydramine HCl (Benadryl) 25 mg Q6H PRN IV ITCHING Last administered on 17:19; Admin Dose 25 MG; Start 02/02/17 at 11:30 Acetaminophen (Tylenol Liquid) 650 mg Q4H PRN GTB PAIN AND OR ELEVATED TEMP Last administered on 02/06/17 16:19; Admin Dose 650 MG; Start 02/04/17 at 08:30 ; Status Future Hold Docusate Sodium 100 mg 100 mg BID NGT Last administered on 02/11/17 21:22; Admin Dose 100 MG; Start 02/05/17 at 09:00 Piperacillin Sod/ Tazobactam Sod 50 ml @ 200 mls/hr Q8 IVPB Last administered on 02/13/17 05:55; Admin Dose 200 MLS/HR; Start 02/05/17 at 14:00 Fat Emulsion Intravenous 250 ml @ 10 mls/hr Q24H IV Last administered on 21:22; Admin Dose 10 MLS/HR; Start 02/05/17 at 20:00 Total Parenteral Nutrition (Tpn) 1,000 ml @ 70 mls/hr [id number] IV Last administered on 02/13/17 01:04; Admin Dose 70 MLS/HR; Start 02/05/17 at 20:00 Furosemide (Lasix) 20 mg DAILY IV Last administered on 02/13/17 09:33; Admin Dose 20 MG; Start 02/07/17 at 11:00; Status Future Hold Diagnostic Test (Pha) 1 ea 1 ea Q8 XX Last administered on 02/13/17 05:54; Admin Dose 1 EA; Start 02/07/17 at 22:00 Acetaminophen (Ofirmev 1000mg/ 100ml Iv) 100 ml @ 400 mls/hr Q6H PRN IVPB FEVER; Start 02/09/17 at 12:00 Lorazepam 1 mg 1 mg Q2 PRN IV AGITATION Last administered on 02/13/17 11:04; Admin Dose 1 MG; Start 02/10/17 at 12:30 Caspofungin 50 mg/ Sodium Chloride 250 ml @ 250 mls/hr Q24H IVPB Last administered on 02/12/17 14:23; Admin Dose 250 MLS/HR; Start 02/11/17 at 14:00 Vancomycin HCl 1.5 gm/Sodium Chloride 250 ml @ 83.333 mls/ hr Q12H IVPB Last administered on 02/13/17 01:28; Admin Dose 83.333 MLS/HR; Start 02/10/17 at 14 :00 Potassium Chloride 250 ml @ 62.5 mls/hr Q4H IVPB Last administered on 11:04; Admin Dose 62.5 MLS/HR; Start 02/13/17 at 11:00; Stop 02/13/17 at 18:59 Dextrose (D5W) 1,000 ml @ 75 mls/hr [id number] IV ; Start 02/13/17 at 12:00; Stop 02/13/17 at 23:55 CARLOS SOLIZ NP Feb 13, 2017 13:22
[2017-02-13] MEDS: FAT EMULSION 20% 250 ML IV SCH (20:00)
--- NOTE | 2017-02-13 20:37 | PN ---
Date/Time of Note Date/Time of Note DATE: 02/13/17 TIME: 20:28 Assessment/Plan VTE Prophylaxis VTE Prophylaxis Intervention: heparin Lines/Catheters IV Catheter Type (from Nrs): Central Line Central line still needed: Yes Urinary Cath still in place: Yes Reason Cath still needed: other (indicate) Assessment/Plan Chief Complaint/Hosp Course Stage IIIc - IV ovarian cancer Problems: Assessment/Plan A/P - gradual impvt. Please note the patient is more dehydrated due to IV rate and her out put accounts Subjective 24 Hr Interval Summary Free Text/Dictation Feels sl impvt but varied. Sedated. Exam/Review of Systems Vital Signs Vitals Vital Signs Date Time Temp Pulse Resp B/P Pulse Ox O2 Delivery O2 Flow Rate FiO2 02/13/17 16:18 98.2 80 20 118/70 100 02/13/17 08:39 2.0 02/13/17 03:41 Nasal Cannula Intake and Output 02/12/17 02/12/17 02/13/17 15:00 23:00 07:00 Intake Total 150 ml 910 ml Output Total 2310 ml 70 ml Balance -2160 ml 840 ml Exam Resp- some uneven and cough CVS- NSR Abd- soft, clean Ext- NT Results Result Diagram: 02/13/17 0758 02/13/17 0758 Results 24 hrs Laboratory Tests Test 02/12/17 21:48 02/13/17 00:41 02/13/17 05:52 02/13/17 07:58 Bedside Glucose 119 119 Activated Partial Thromboplast Time 39.4 H 79.7 *H White Blood Count 15.3 H Red Blood Count 3.17 L Hemoglobin 8.4 L Hematocrit 28.4 L Mean Corpuscular Volume 89.6 Mean Corpuscular Hemoglobin 26.5 L Mean Corpuscular Hemoglobin Concent 29.6 L Red Cell Distribution Width 18.9 H Platelet Count 695 H Mean Platelet Volume 13.1 H Neutrophils % 86.6 H Lymphocytes % 3.7 L Monocytes % 7.7 Eosinophils % 0.7 Basophils % 0.1 Nucleated Red Blood Cells % 0.8 H Neutrophils # 13.3 H Lymphocytes # 0.6 L Monocytes # 1.2 H Eosinophils # 0.1 Basophils # 0.0 Nucleated Red Blood Cells # 0.1 H Sodium Level 148 H Potassium Level 2.9 *L Chloride Level 109 Carbon Dioxide Level 33 H Anion Gap 9 Blood Urea Nitrogen 15 Creatinine 0.56 Glucose Level 114 Calcium Level 8.2 L Phosphorus Level 3.2 Magnesium Level 1.9 Test 02/13/17 14:20 02/13/17 14:28 Activated Partial Thromboplast Time 104.8 *H Bedside Glucose 93 Medications Medications Current Medications Acetaminophen (Tylenol Tab) 650 mg Q6H PRN PO PAIN LEVEL 1-3 OR FEVER Last administered on 02/06/17 23:54; Admin Dose 650 MG; Start 01/22/17 at 16:00; Status Future Hold Docusate Sodium (Colace) 100 mg Q12H PRN PO CONSTIPATION; Start 01/22/17 at 16 :00 Magnesium Hydroxide (Milk Of Mag) 30 ml DAILY PRN PO CONSTIPATION Last administered on 01/31/17 07:38; Admin Dose 30 ML; Start 01/22/17 at 16:00 Bisacodyl (Dulcolax) 5 mg DAILY PRN PO CONSTIPATION Last administered on 05:07; Admin Dose 5 MG; Start 01/22/17 at 16:00 Polyethylene Glycol (Miralax) 17 gm DAILY PO Last administered on 02/09/17 09: 00; Admin Dose 17 GM; Start 01/26/17 at 15:30 Sodium Biphosphate/ Sodium Phosphate (Fleet Enema) 133 ml DAILY PRN [place] CONSTIPATION Last administered on 01/27/17 06:17; Admin Dose 133 ML; Start at 20:30 Tolterodine Tartrate (Detrol La) 4 mg DAILY PO Last administered on 02/13/17 09:33; Admin Dose 4 MG; Start 01/27/17 at 15:30 Morphine Sulfate 2 mg 2 mg Q2H PRN IV PAIN LEVEL 7-10 Last administered on 02/12 08:59; Admin Dose 2 MG; Start 01/28/17 at 14:00 Ondansetron HCl/ Dextrose (Zofran Inj/D5W) 54 ml @ 108 mls/hr Q6H PRN IV NAUSEA AND/OR VOMITING; Start 01/31/17 at 12:00 Hydromorphone HCl (Dilaudid) 1 mg Q2H PRN IV PAIN LEVEL 6-10 Last administered on 02/13/17 18:12; Admin Dose 1 MG; Start 02/02/17 at 11:30 Diphenhydramine HCl (Benadryl) 25 mg Q6H PRN IV ITCHING Last administered on 17:19; Admin Dose 25 MG; Start 02/02/17 at 11:30 Acetaminophen (Tylenol Liquid) 650 mg Q4H PRN GTB PAIN AND OR ELEVATED TEMP Last administered on 02/06/17 16:19; Admin Dose 650 MG; Start 02/04/17 at 08:30 ; Status Future Hold Docusate Sodium 100 mg 100 mg BID NGT Last administered on 02/11/17 21:22; Admin Dose 100 MG; Start 02/05/17 at 09:00 Piperacillin Sod/ Tazobactam Sod 50 ml @ 200 mls/hr Q8 IVPB Last administered on 02/13/17 13:17; Admin Dose 200 MLS/HR; Start 02/05/17 at 14:00 Fat Emulsion Intravenous 250 ml @ 10 mls/hr Q24H IV Last administered on 21:22; Admin Dose 10 MLS/HR; Start 02/05/17 at 20:00 Total Parenteral Nutrition (Tpn) 1,000 ml @ 70 mls/hr [id number] IV Last administered on 02/13/17 13:19; Admin Dose 70 MLS/HR; Start 02/05/17 at 20:00 Furosemide (Lasix) 20 mg DAILY IV Last administered on 02/13/17 09:33; Admin Dose 20 MG; Start 02/07/17 at 11:00; Status Future Hold Diagnostic Test (Pha) 1 ea 1 ea Q8 XX Last administered on 02/13/17 14:29; Admin Dose 1 EA; Start 02/07/17 at 22:00 Acetaminophen (Ofirmev 1000mg/ 100ml Iv) 100 ml @ 400 mls/hr Q6H PRN IVPB FEVER; Start 02/09/17 at 12:00 Lorazepam 1 mg 1 mg Q2 PRN IV AGITATION Last administered on 02/13/17 11:04; Admin Dose 1 MG; Start 02/10/17 at 12:30 Dextrose (D5W) 1,000 ml @ 75 mls/hr [id number] IV Last administered on 13:18; Admin Dose 75 MLS/HR; Start 02/13/17 at 12:00; Stop 02/13/17 at 23 :55 Ondansetron HCl (Zofran Inj) 4 mg Q6H PRN IV NAUSEA AND/OR VOMITING; Start 01/20 at 14:30 RAUL EUCEDA MD Feb 13, 2017 20:37
[2017-02-14] VITALS (12 sets, daily range): BP systolic 118–146; BP diastolic 68–87; PULSE 81–110; RESP 19–22
[2017-02-14] MEDS: HYDROmorphONE 0.5 MG/0.5 ML SYG IV PRN ×4 (03:01→20:19)
[2017-02-14] MEDS: FAT EMULSION 20% 250 ML IV SCH ×2 (03:03→20:00)
[2017-02-14] MEDS: TPN 1,000 ML IV SCH ×4 (04:01→22:51)
[2017-02-14] MEDS: ACCU-CHEK XX SCH ×3 (06:33→22:00)
[2017-02-14] MEDS: PIPER-TAZO 3.375 GM IV (PMX) 50 ML IVPB SCH ×2 (06:33→14:19)
[2017-02-14 07:12] LABS: BASOPHILS % 0.1 % (0.0-2.0); EOSINOPHILS # 0.2 10^3/ul (0.0-0.5); EOSINOPHILS % 1.3 % (0.0-7.0); HEMATOCRIT 28.5 % (37.0-47.0); HEMOGLOBIN 8.4 g/dl (12.0-16.0); LYMPHOCYTES # 0.7 10^3/ul (0.8-2.9); LYMPHOCYTES % 4.4 % (15.0-51.0); MEAN CORPUSCULAR HEMOGLOBIN 26.7 pg (29.0-33.0); MEAN CORPUSCULAR HGB CONC 29.5 g/dl (32.0-37.0); MEAN CORPUSCULAR VOLUME 90.5 fl (82.0-101.0); MEAN PLATELET VOLUME 12.6 fl (7.4-10.4); MONOCYTE # 1.2 10^3/ul (0.3-0.9); MONOCYTES % 7.7 % (0.0-11.0); NEUTROPHIL # 13.5 10^3/ul (1.6-7.5); NEUTROPHILS % 85.2 % (39.0-77.0); NUCLEATED RED BLOOD CELLS # 0.1 10^3/ul (0.0-0.0); NUCLEATED RED BLOOD CELLS% 0.4 /100WBC (0.0-0.0); PLATELET COUNT 720 10^3/UL (140-415); RED BLOOD COUNT 3.15 10^6/ul (4.20-5.40); RED CELL DISTRIBUTION WIDTH 18.9 % (11.5-14.5); WHITE BLOOD COUNT 15.8 10^3/ul (4.8-10.8)
[2017-02-14 07:38] LABS: CALCIUM 8.2 mg/dl (8.4-10.2); CREATININE 0.56 mg/dl (0.44-1.00); POTASSIUM 3.7 mmol/L (3.5-5.1)
[2017-02-14 07:39] LABS: MAGNESIUM 1.9 mg/dl (1.7-2.5); PHOSPHORUS 3.4 mg/dl (2.5-4.9)
[2017-02-14] MEDS: TOLTERODINE (SR) 4 MG CAP PO SCH (08:24)
[2017-02-14] MEDS: DOCUSATE SODIUM 10 MG/ML (10ML CUP) NGT SCH ×2 (08:24→20:49)
[2017-02-14] MEDS: POLYETHYLENE GLYCOL 17 GM PACKET PO SCH (08:24)
--- NOTE | 2017-02-14 11:28 | PN ---
Date/Time of Note Date/Time of Note DATE: 02/14/17 TIME: 11:26 Assessment/Plan VTE Prophylaxis VTE Prophylaxis Intervention: other (IVC filter) Lines/Catheters IV Catheter Type (from Nrsg): Central Line Central line still needed: Yes Urinary Cath still in place: Yes Reason Cath still needed: urinary retention (IVC filter) Assessment/Plan Chief Complaint/Hosp Course Assessment/Plan: 56 yo F with known stage 4 ovarian Ca here admitted for abd pain from malignant ascites sp para 10.19, sp ureteral stenting as well sp debulking surgery on February 03. 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 Empiric abx started 02.05 for fever, urine cultures negative, CXR without focal consolidation. respiratory culture with NRF. + blood cultures as well, now with bilateral pulmonary embolisms. - Continue pain medications, TPN for now, continue abx as per ID caspofungin and Vanco - Follow-up gynecologic onc, pulm, and heme onc recommendations -per discussion with hematology team yesterday patient may begin radiation therapy early next week, and depending on what she does with that, chemotherapy afterwards. - f/u PT/OT evals -continue antibiotics -For bilateral pulmonary embolisms, status post IVC filter placement 2 days ago, stopped heparin drip yesterday secondary to mild bleeding, monitor for now 2. subclinical hypothyroid: outpatient f/u 3. Low hemoglobin: Patient received blood transfusion 4 days ago. Hemoglobin stable presently -Continue to monitor for now 4. Hypernatremia: Slightly improved from yesterday(148 -> 146) -Monitor for now, consider free water, recheck BMP in the morning Problems: Subjective 24 Hr Interval Summary Free Text/Dictation No acute events overnight, son at the bedside, off of heparin drip since yesterday now. Tolerating TPN. Seen by gynecologic oncology team yesterday. Exam/Review of Systems Vital Signs Vitals Vital Signs Date Time Temp Pulse Resp B/P Pulse Ox O2 Delivery O2 Flow Rate FiO2 02/14/17 08:25 103 02/14/17 08:10 Nasal Cannula 3.0 02/14/17 07:52 98.0 19 134/75 95 Intake and Output 02/13/17 02/13/17 02/14/17 15:00 23:00 07:00 Intake Total 50 ml 1682 ml Output Total 3590 ml 1155 ml Balance -3540 ml 527 ml Exam Gen: Less lethargic today, opens eyes occasionally HEENT: PERRL, EOMI, anicteric Neck: Trach midline Respiratory: Clear anterior, some diminished BLL Cardiovascular: NSR on tele, radial pulses 2+ bilaterally Gastrointestinal: Soft, bilateral J/P drains Extremities: Warm, no cyanosis, trace edema Neurological: No focal deficits Results Result Diagram: 02/14/17 0632 02/14/17 0632 Results 24 hrs Laboratory Tests Test 02/13/17 14:20 02/13/17 14:28 02/13/17 22:22 02/14/17 06:31 Activated Partial Thromboplast Time 104.8 *H Bedside Glucose 93 95 108 Test 02/14/17 06:32 White Blood Count 15.8 H Red Blood Count 3.15 L Hemoglobin 8.4 L Hematocrit 28.5 L Mean Corpuscular Volume 90.5 Mean Corpuscular Hemoglobin 26.7 L Mean Corpuscular Hemoglobin Concent 29.5 L Red Cell Distribution Width 18.9 H Platelet Count 720 H Mean Platelet Volume 12.6 H Neutrophils % 85.2 H Lymphocytes % 4.4 L Monocytes % 7.7 Eosinophils % 1.3 Basophils % 0.1 Nucleated Red Blood Cells % 0.4 H Neutrophils # 13.5 H Lymphocytes # 0.7 L Monocytes # 1.2 H Eosinophils # 0.2 Basophils # 0.0 Nucleated Red Blood Cells # 0.1 H Sodium Level 146 H Potassium Level 3.7 Chloride Level 108 Carbon Dioxide Level 30 Anion Gap 12 Blood Urea Nitrogen 14 Creatinine 0.56 Glucose Level 102 Calcium Level 8.2 L Phosphorus Level 3.4 Magnesium Level 1.9 Medications Medications Current Medications Acetaminophen (Tylenol Tab) 650 mg Q6H PRN PO PAIN LEVEL 1-3 OR FEVER Last administered on 02/06/17 23:54; Admin Dose 650 MG; Start 01/22/17 at 16:00; Status Future Hold Docusate Sodium (Colace) 100 mg Q12H PRN PO CONSTIPATION; Start 01/22/17 at 16 :00 Magnesium Hydroxide (Milk Of Mag) 30 ml DAILY PRN PO CONSTIPATION Last administered on 01/31/17 07:38; Admin Dose 30 ML; Start 01/22/17 at 16:00 Bisacodyl (Dulcolax) 5 mg DAILY PRN PO CONSTIPATION Last administered on 05:07; Admin Dose 5 MG; Start 01/22/17 at 16:00 Polyethylene Glycol (Miralax) 17 gm DAILY PO Last administered on 02/09/17 09: 00; Admin Dose 17 GM; Start 01/26/17 at 15:30 Sodium Biphosphate/ Sodium Phosphate (Fleet Enema) 133 ml DAILY PRN [place] CONSTIPATION Last administered on 01/27/17 06:17; Admin Dose 133 ML; Start at 20:30 Tolterodine Tartrate (Detrol La) 4 mg DAILY PO Last administered on 02/13/17 09:33; Admin Dose 4 MG; Start 01/27/17 at 15:30 Morphine Sulfate 2 mg 2 mg Q2H PRN IV PAIN LEVEL 7-10 Last administered on 02/12 08:59; Admin Dose 2 MG; Start 01/28/17 at 14:00 Ondansetron HCl/ Dextrose (Zofran Inj/D5W) 54 ml @ 108 mls/hr Q6H PRN IV NAUSEA AND/OR VOMITING; Start 01/31/17 at 12:00 Hydromorphone HCl (Dilaudid) 1 mg Q2H PRN IV PAIN LEVEL 6-10 Last administered on 02/14/17 08:28; Admin Dose 1 MG; Start 02/02/17 at 11:30 Diphenhydramine HCl (Benadryl) 25 mg Q6H PRN IV ITCHING Last administered on 17:19; Admin Dose 25 MG; Start 02/02/17 at 11:30 Acetaminophen (Tylenol Liquid) 650 mg Q4H PRN GTB PAIN AND OR ELEVATED TEMP Last administered on 02/06/17 16:19; Admin Dose 650 MG; Start 02/04/17 at 08:30 ; Status Future Hold Docusate Sodium 100 mg 100 mg BID NGT Last administered on 02/11/17 21:22; Admin Dose 100 MG; Start 02/05/17 at 09:00 Piperacillin Sod/ Tazobactam Sod 50 ml @ 200 mls/hr Q8 IVPB Last administered on 02/14/17 06:33; Admin Dose 200 MLS/HR; Start 02/05/17 at 14:00 Fat Emulsion Intravenous 250 ml @ 10 mls/hr Q24H IV Last administered on 02/14 03:03; Admin Dose 10 MLS/HR; Start 02/05/17 at 20:00 Total Parenteral Nutrition (Tpn) 1,000 ml @ 70 mls/hr [id number] IV Last administered on 02/14/17 08:37; Admin Dose 70 MLS/HR; Start 02/05/17 at 20:00 Furosemide (Lasix) 20 mg DAILY IV Last administered on 02/13/17 09:33; Admin Dose 20 MG; Start 02/07/17 at 11:00; Status Future Hold Diagnostic Test (Pha) 1 ea 1 ea Q8 XX Last administered on 02/14/17 06:33; Admin Dose 1 EA; Start 02/07/17 at 22:00 Acetaminophen (Ofirmev 1000mg/ 100ml Iv) 100 ml @ 400 mls/hr Q6H PRN IVPB FEVER; Start 02/09/17 at 12:00 Lorazepam (Ativan) 1 mg Q2 PRN IV AGITATION Last administered on 02/14/17 00: 00; Admin Dose 1 MG; Start 02/10/17 at 12:30 Ondansetron HCl (Zofran Inj) 4 mg Q6H PRN IV NAUSEA AND/OR VOMITING; Start 01/20 at 14:30 KENTRELL MACIAS 11, 2017 11:28
--- NOTE | 2017-02-14 12:27 | CONS ---
Date/Time of Note Date/Time of Note DATE: 02/14/17 TIME: 12:25 Consult Date/Type/Reason Admit Date/Time Jan 22, 2017 at 14:12 Initial Consult Date 02/03/17 Type of Consultation: Pulmonary Ordering Provider: RAUL EUCEDA MD Subjective Comfortable this morning. Objective Vital Signs Date Time Temp Pulse Resp B/P Pulse Ox O2 Delivery O2 Flow Rate FiO2 02/14/17 12:14 106 02/14/17 11:42 99.2 20 134/77 97 02/14/17 08:10 Nasal Cannula 3.0 Intake and Output 02/13/17 02/13/17 02/14/17 14:59 22:59 06:59 Intake Total 50 ml 1682 ml Output Total 3590 ml 1155 ml Balance -3540 ml 527 ml Exam GENERAL: Well-developed gentleman comfortable at rest no acute distress VITAL SIGNS: per chart NECK: Supple. No JVD or lymphadenopathy. CARDIAC EXAM: S1, S2. No added sounds or murmurs. CHEST: clear bilaterally, No added sounds, rales or wheezes, chest tubes in place ABDOMEN: Soft, nontender. No guarding or rebound. EXTREMITIES: No cyanosis, clubbing or edema. NEUROLOGIC: Generalized weakness. No focal deficits. Results/Medications Result Diagram: 02/14/17 0632 02/14/17 0632 Results 24 hrs Laboratory Tests Test 02/13/17 14:20 02/13/17 14:28 02/13/17 22:22 02/14/17 06:31 Activated Partial Thromboplast Time 104.8 *H Bedside Glucose 93 95 108 Test 02/14/17 06:32 White Blood Count 15.8 H Red Blood Count 3.15 L Hemoglobin 8.4 L Hematocrit 28.5 L Mean Corpuscular Volume 90.5 Mean Corpuscular Hemoglobin 26.7 L Mean Corpuscular Hemoglobin Concent 29.5 L Red Cell Distribution Width 18.9 H Platelet Count 720 H Mean Platelet Volume 12.6 H Neutrophils % 85.2 H Lymphocytes % 4.4 L Monocytes % 7.7 Eosinophils % 1.3 Basophils % 0.1 Nucleated Red Blood Cells % 0.4 H Neutrophils # 13.5 H Lymphocytes # 0.7 L Monocytes # 1.2 H Eosinophils # 0.2 Basophils # 0.0 Nucleated Red Blood Cells # 0.1 H Sodium Level 146 H Potassium Level 3.7 Chloride Level 108 Carbon Dioxide Level 30 Anion Gap 12 Blood Urea Nitrogen 14 Creatinine 0.56 Glucose Level 102 Calcium Level 8.2 L Phosphorus Level 3.4 Magnesium Level 1.9 Medications Current Medications Acetaminophen (Tylenol Tab) 650 mg Q6H PRN PO PAIN LEVEL 1-3 OR FEVER Last administered on 02/06/17 23:54; Admin Dose 650 MG; Start 01/22/17 at 16:00; Status Future Hold Docusate Sodium (Colace) 100 mg Q12H PRN PO CONSTIPATION; Start 01/22/17 at 16 :00 Magnesium Hydroxide (Milk Of Mag) 30 ml DAILY PRN PO CONSTIPATION Last administered on 01/31/17 07:38; Admin Dose 30 ML; Start 01/22/17 at 16:00 Bisacodyl (Dulcolax) 5 mg DAILY PRN PO CONSTIPATION Last administered on 05:07; Admin Dose 5 MG; Start 01/22/17 at 16:00 Polyethylene Glycol (Miralax) 17 gm DAILY PO Last administered on 02/09/17 09: 00; Admin Dose 17 GM; Start 01/26/17 at 15:30 Sodium Biphosphate/ Sodium Phosphate (Fleet Enema) 133 ml DAILY PRN [place] CONSTIPATION Last administered on 01/27/17 06:17; Admin Dose 133 ML; Start at 20:30 Tolterodine Tartrate (Detrol La) 4 mg DAILY PO Last administered on 02/13/17 09:33; Admin Dose 4 MG; Start 01/27/17 at 15:30 Morphine Sulfate 2 mg 2 mg Q2H PRN IV PAIN LEVEL 7-10 Last administered on 02/12 08:59; Admin Dose 2 MG; Start 01/28/17 at 14:00 Ondansetron HCl/ Dextrose (Zofran Inj/D5W) 54 ml @ 108 mls/hr Q6H PRN IV NAUSEA AND/OR VOMITING; Start 01/31/17 at 12:00 Hydromorphone HCl (Dilaudid) 1 mg Q2H PRN IV PAIN LEVEL 6-10 Last administered on 02/14/17 08:28; Admin Dose 1 MG; Start 02/02/17 at 11:30 Diphenhydramine HCl (Benadryl) 25 mg Q6H PRN IV ITCHING Last administered on 17:19; Admin Dose 25 MG; Start 02/02/17 at 11:30 Acetaminophen (Tylenol Liquid) 650 mg Q4H PRN GTB PAIN AND OR ELEVATED TEMP Last administered on 02/06/17 16:19; Admin Dose 650 MG; Start 02/04/17 at 08:30 ; Status Future Hold Docusate Sodium 100 mg 100 mg BID NGT Last administered on 02/11/17 21:22; Admin Dose 100 MG; Start 02/05/17 at 09:00 Piperacillin Sod/ Tazobactam Sod 50 ml @ 200 mls/hr Q8 IVPB Last administered on 02/14/17 06:33; Admin Dose 200 MLS/HR; Start 02/05/17 at 14:00 Fat Emulsion Intravenous 250 ml @ 10 mls/hr Q24H IV Last administered on 02/14 03:03; Admin Dose 10 MLS/HR; Start 02/05/17 at 20:00 Total Parenteral Nutrition (Tpn) 1,000 ml @ 70 mls/hr [id number] IV Last administered on 02/14/17 08:37; Admin Dose 70 MLS/HR; Start 02/05/17 at 20:00 Furosemide (Lasix) 20 mg DAILY IV Last administered on 02/13/17 09:33; Admin Dose 20 MG; Start 02/07/17 at 11:00; Status Future Hold Diagnostic Test (Pha) 1 ea 1 ea Q8 XX Last administered on 02/14/17 06:33; Admin Dose 1 EA; Start 02/07/17 at 22:00 Acetaminophen (Ofirmev 1000mg/ 100ml Iv) 100 ml @ 400 mls/hr Q6H PRN IVPB FEVER; Start 02/09/17 at 12:00 Lorazepam (Ativan) 1 mg Q2 PRN IV AGITATION Last administered on 02/14/17 00: 00; Admin Dose 1 MG; Start 02/10/17 at 12:30 Ondansetron HCl (Zofran Inj) 4 mg Q6H PRN IV NAUSEA AND/OR VOMITING; Start 01/20 at 14:30 Assessment/Plan Chief Complaint/Hosp Course Assessment 1. Hypoxemic respiratory failure with alveolar hypoventilation neuromuscular weakness, now extubated. Bilateral pulmonary emboli. 2. Recent diagnosis of stage IV ovarian cancer status post hysterectomy with bilateral salpingo-oophorectomy 3. Postop ileus slowly resolving 4. Status post septic shock. 5. Mild leukocytosis. 6. Postop delirium, better today. Plan 1. Avoid sedatives, PT eval encourage out of bed 2. Aspiration precautions. 3. Continue postop surgical recommendations 4. DVT GI prophylaxis 5. Status post IVC filter placement. 6. Status post CT-guided drainage of right upper quadrant fluid collection. 7. Iron studies Ferrlecit. 8. Correct electrolytes. Consider transfer to [facility]. Problems: SERA NAVARRO MD, [facility] Feb 14, 2017 12:27
--- NOTE | 2017-02-14 13:08 | CONS ---
Date/Time of Note Date/Time of Note DATE: 02/14/17 TIME: 13:01 Consult Date/Type/Reason Admit Date/Time Jan 22, 2017 at 14:12 Initial Consult Date 01/23/17 Type of Consultation: Urology Reason for Consultation Bilateral hydronephrosis Ordering Provider: DAYANARA BROWN MD Subjective Abdominal pain, pelvic mass, metastatic ovarian cancer and bilateral hydronephrosis Objective Vital Signs Date Time Temp Pulse Resp B/P Pulse Ox O2 Delivery O2 Flow Rate FiO2 02/14/17 12:14 106 02/14/17 11:42 99.2 20 134/77 97 02/14/17 08:10 Nasal Cannula 3.0 Intake and Output 02/13/17 02/13/17 02/14/17 15:00 23:00 07:00 Intake Total 50 ml 1682 ml Output Total 3590 ml 1155 ml Balance -3540 ml 527 ml Exam Patient is awake alert appears very weak and tired has an NG tube in place and Cullen catheter in place the Cullen catheter is draining clear urine the abdomen is distended and she has pain, the Cullen catheter that she has is draining clear urine Results/Medications Result Diagram: 02/14/17 0632 02/14/17 0632 Results 24 hrs Laboratory Tests Test 02/13/17 14:20 02/13/17 14:28 02/13/17 22:22 02/14/17 06:31 Activated Partial Thromboplast Time 104.8 *H Bedside Glucose 93 95 108 Test 02/14/17 06:32 White Blood Count 15.8 H Red Blood Count 3.15 L Hemoglobin 8.4 L Hematocrit 28.5 L Mean Corpuscular Volume 90.5 Mean Corpuscular Hemoglobin 26.7 L Mean Corpuscular Hemoglobin Concent 29.5 L Red Cell Distribution Width 18.9 H Platelet Count 720 H Mean Platelet Volume 12.6 H Neutrophils % 85.2 H Lymphocytes % 4.4 L Monocytes % 7.7 Eosinophils % 1.3 Basophils % 0.1 Nucleated Red Blood Cells % 0.4 H Neutrophils # 13.5 H Lymphocytes # 0.7 L Monocytes # 1.2 H Eosinophils # 0.2 Basophils # 0.0 Nucleated Red Blood Cells # 0.1 H Sodium Level 146 H Potassium Level 3.7 Chloride Level 108 Carbon Dioxide Level 30 Anion Gap 12 Blood Urea Nitrogen 14 Creatinine 0.56 Glucose Level 102 Calcium Level 8.2 L Phosphorus Level 3.4 Magnesium Level 1.9 Medications Current Medications Acetaminophen (Tylenol Tab) 650 mg Q6H PRN PO PAIN LEVEL 1-3 OR FEVER Last administered on 02/06/17 23:54; Admin Dose 650 MG; Start 01/22/17 at 16:00; Status Future Hold Docusate Sodium (Colace) 100 mg Q12H PRN PO CONSTIPATION; Start 01/22/17 at 16 :00 Magnesium Hydroxide (Milk Of Mag) 30 ml DAILY PRN PO CONSTIPATION Last administered on 01/31/17 07:38; Admin Dose 30 ML; Start 01/22/17 at 16:00 Bisacodyl (Dulcolax) 5 mg DAILY PRN PO CONSTIPATION Last administered on 05:07; Admin Dose 5 MG; Start 01/22/17 at 16:00 Polyethylene Glycol (Miralax) 17 gm DAILY PO Last administered on 02/09/17 09: 00; Admin Dose 17 GM; Start 01/26/17 at 15:30 Sodium Biphosphate/ Sodium Phosphate (Fleet Enema) 133 ml DAILY PRN [place] CONSTIPATION Last administered on 01/27/17 06:17; Admin Dose 133 ML; Start at 20:30 Tolterodine Tartrate (Detrol La) 4 mg DAILY PO Last administered on 02/13/17 09:33; Admin Dose 4 MG; Start 01/27/17 at 15:30 Morphine Sulfate 2 mg 2 mg Q2H PRN IV PAIN LEVEL 7-10 Last administered on 02/12 08:59; Admin Dose 2 MG; Start 01/28/17 at 14:00 Ondansetron HCl/ Dextrose (Zofran Inj/D5W) 54 ml @ 108 mls/hr Q6H PRN IV NAUSEA AND/OR VOMITING; Start 01/31/17 at 12:00 Hydromorphone HCl (Dilaudid) 1 mg Q2H PRN IV PAIN LEVEL 6-10 Last administered on 02/14/17 12:29; Admin Dose 1 MG; Start 02/02/17 at 11:30 Diphenhydramine HCl (Benadryl) 25 mg Q6H PRN IV ITCHING Last administered on 17:19; Admin Dose 25 MG; Start 02/02/17 at 11:30 Acetaminophen (Tylenol Liquid) 650 mg Q4H PRN GTB PAIN AND OR ELEVATED TEMP Last administered on 02/06/17 16:19; Admin Dose 650 MG; Start 02/04/17 at 08:30 ; Status Future Hold Docusate Sodium 100 mg 100 mg BID NGT Last administered on 02/11/17 21:22; Admin Dose 100 MG; Start 02/05/17 at 09:00 Piperacillin Sod/ Tazobactam Sod 50 ml @ 200 mls/hr Q8 IVPB Last administered on 02/14/17 06:33; Admin Dose 200 MLS/HR; Start 02/05/17 at 14:00 Fat Emulsion Intravenous 250 ml @ 10 mls/hr Q24H IV Last administered on 02/14 03:03; Admin Dose 10 MLS/HR; Start 02/05/17 at 20:00 Total Parenteral Nutrition (Tpn) 1,000 ml @ 70 mls/hr [id number] IV Last administered on 02/14/17 08:37; Admin Dose 70 MLS/HR; Start 02/05/17 at 20:00 Furosemide (Lasix) 20 mg DAILY IV Last administered on 02/13/17 09:33; Admin Dose 20 MG; Start 02/07/17 at 11:00; Status Future Hold Diagnostic Test (Pha) 1 ea 1 ea Q8 XX Last administered on 02/14/17 06:33; Admin Dose 1 EA; Start 02/07/17 at 22:00 Acetaminophen (Ofirmev 1000mg/ 100ml Iv) 100 ml @ 400 mls/hr Q6H PRN IVPB FEVER; Start 02/09/17 at 12:00 Lorazepam (Ativan) 1 mg Q2 PRN IV AGITATION Last administered on 02/14/17 00: 00; Admin Dose 1 MG; Start 02/10/17 at 12:30 Ondansetron HCl (Zofran Inj) 4 mg Q6H PRN IV NAUSEA AND/OR VOMITING; Start 01/20 at 14:30 Assessment/Plan Chief Complaint/Hosp Course 56-year-old female with stage IV ovarian cancer presented to the hospital with abdominal pain. CT scan of the abdomen and pelvis showed bilateral hydronephrosis more severe on the right side. The patient underwent paracentesis and 4 Liters were drained and sent for cytology. The pathology report came out as ovarian cancer. the patient underwent cystoscopy and insertion of bilateral JJ stents . The patient had debulking of the tumor by Dr. Ramirez. From a urological standpoint at the present she does have the bilateral JJ stents and her renal function is stable. If she gets better and respond to treatment then later on in the future she will need the stents removed and may be replaced Problems: EMILIE ALBERT MD Feb 14, 2017 13:08
[2017-02-14] MEDS: LORAZEPAM 2 MG INJ IV PRN ×2 (14:22)
--- NOTE | 2017-02-14 17:28 | CONS ---
Date/Time of Note Date/Time of Note DATE: 02/14/17 TIME: 17:26 Assessment/Plan Assessment/Plan Chief Complaint/Hosp Course SUBJECTIVE: No events overnight. Patient is awake, looks comfortable, no fevers ANTIMICROBIALS: Zosyn. INDWELLINGS: Triple lumen catheter JPs, Cullen catheter, R abd pigtail. PHYSICAL EXAMINATION: GENERAL: This is a wasted, chronically ill-appearing, 56-year-old woman who is awake, in no distress. HEENT: Head atraumatic, normocephalic. Sclerae icteric. Buccal mucosa dry. NECK: Supple. CHEST: Rise symmetrical. Breath sounds diminished at bases. HEART: S1, S2. ABDOMEN: Soft, bowel tones present, incision clean. EXTREMITIES: With trace edema. ASSESSMENT: 1. Systemic inflammatory response syndrome with persistent leukocytosis. 2. Intraabdominal abscess, s/p CT-guided drainage 02/10/17. 3. Bilateral pulmonary emboli. 4. Metastatic ovarian cancer, status post tumor debulking on 02/02/2017. 5. Bilateral hydronephrosis, status post JJ stent placement on 01/24/2017. 6. Status post alpha hemolytic streptococci urinary tract infection. 7. Cachexia. 8. Encephalopathy. PLAN: Remains stable, dc abx abd observe, repeat cx's prn, aspiration precautions [facility] staff Problems: Consultation Date/Type/Reason Admit Date/Time Jan 22, 2017 at 14:12 Initial Consult Date 02/03/17 Type of Consultation: id Referring Provider: DAYANARA BROWN MD Exam/Review of Systems Vital Signs Vitals Vital Signs Date Time Temp Pulse Resp B/P Pulse Ox O2 Delivery O2 Flow Rate FiO2 02/14/17 16:16 108 02/14/17 15:22 99.7 21 125/77 97 02/14/17 08:10 Nasal Cannula 3.0 Intake and Output 02/13/17 02/13/17 02/14/17 15:00 23:00 07:00 Intake Total 50 ml 1682 ml Output Total 3590 ml 1155 ml Balance -3540 ml 527 ml Results Result Diagram: 02/14/17 0632 02/14/17 0632 Results 24 hrs Laboratory Tests Test 02/13/17 22:22 02/14/17 06:31 02/14/17 06:32 02/14/17 14:26 Bedside Glucose 95 108 110 White Blood Count 15.8 H Red Blood Count 3.15 L Hemoglobin 8.4 L Hematocrit 28.5 L Mean Corpuscular Volume 90.5 Mean Corpuscular Hemoglobin 26.7 L Mean Corpuscular Hemoglobin Concent 29.5 L Red Cell Distribution Width 18.9 H Platelet Count 720 H Mean Platelet Volume 12.6 H Neutrophils % 85.2 H Lymphocytes % 4.4 L Monocytes % 7.7 Eosinophils % 1.3 Basophils % 0.1 Nucleated Red Blood Cells % 0.4 H Neutrophils # 13.5 H Lymphocytes # 0.7 L Monocytes # 1.2 H Eosinophils # 0.2 Basophils # 0.0 Nucleated Red Blood Cells # 0.1 H Sodium Level 146 H Potassium Level 3.7 Chloride Level 108 Carbon Dioxide Level 30 Anion Gap 12 Blood Urea Nitrogen 14 Creatinine 0.56 Glucose Level 102 Calcium Level 8.2 L Phosphorus Level 3.4 Magnesium Level 1.9 Medications Medications Current Medications Acetaminophen (Tylenol Tab) 650 mg Q6H PRN PO PAIN LEVEL 1-3 OR FEVER Last administered on 02/06/17 23:54; Admin Dose 650 MG; Start 01/22/17 at 16:00; Status Future Hold Docusate Sodium (Colace) 100 mg Q12H PRN PO CONSTIPATION; Start 01/22/17 at 16 :00 Magnesium Hydroxide (Milk Of Mag) 30 ml DAILY PRN PO CONSTIPATION Last administered on 01/31/17 07:38; Admin Dose 30 ML; Start 01/22/17 at 16:00 Bisacodyl (Dulcolax) 5 mg DAILY PRN PO CONSTIPATION Last administered on 05:07; Admin Dose 5 MG; Start 01/22/17 at 16:00 Polyethylene Glycol (Miralax) 17 gm DAILY PO Last administered on 02/09/17 09: 00; Admin Dose 17 GM; Start 01/26/17 at 15:30 Sodium Biphosphate/ Sodium Phosphate (Fleet Enema) 133 ml DAILY PRN [place] CONSTIPATION Last administered on 01/27/17 06:17; Admin Dose 133 ML; Start at 20:30 Tolterodine Tartrate (Detrol La) 4 mg DAILY PO Last administered on 02/13/17 09:33; Admin Dose 4 MG; Start 01/27/17 at 15:30 Morphine Sulfate 2 mg 2 mg Q2H PRN IV PAIN LEVEL 7-10 Last administered on 02/12 08:59; Admin Dose 2 MG; Start 01/28/17 at 14:00 Ondansetron HCl/ Dextrose (Zofran Inj/D5W) 54 ml @ 108 mls/hr Q6H PRN IV NAUSEA AND/OR VOMITING; Start 01/31/17 at 12:00 Hydromorphone HCl (Dilaudid) 1 mg Q2H PRN IV PAIN LEVEL 6-10 Last administered on 02/14/17 12:29; Admin Dose 1 MG; Start 02/02/17 at 11:30 Diphenhydramine HCl (Benadryl) 25 mg Q6H PRN IV ITCHING Last administered on 17:19; Admin Dose 25 MG; Start 02/02/17 at 11:30 Acetaminophen (Tylenol Liquid) 650 mg Q4H PRN GTB PAIN AND OR ELEVATED TEMP Last administered on 02/06/17 16:19; Admin Dose 650 MG; Start 02/04/17 at 08:30 ; Status Future Hold Docusate Sodium 100 mg 100 mg BID NGT Last administered on 02/11/17 21:22; Admin Dose 100 MG; Start 02/05/17 at 09:00 Piperacillin Sod/ Tazobactam Sod 50 ml @ 200 mls/hr Q8 IVPB Last administered on 02/14/17 14:19; Admin Dose 200 MLS/HR; Start 02/05/17 at 14:00 Fat Emulsion Intravenous 250 ml @ 10 mls/hr Q24H IV Last administered on 02/14 03:03; Admin Dose 10 MLS/HR; Start 02/05/17 at 20:00 Total Parenteral Nutrition (Tpn) 1,000 ml @ 70 mls/hr [id number] IV Last administered on 02/14/17 08:37; Admin Dose 70 MLS/HR; Start 02/05/17 at 20:00 Furosemide (Lasix) 20 mg DAILY IV Last administered on 02/13/17 09:33; Admin Dose 20 MG; Start 02/07/17 at 11:00; Status Future Hold Diagnostic Test (Pha) 1 ea 1 ea Q8 XX Last administered on 02/14/17 06:33; Admin Dose 1 EA; Start 02/07/17 at 22:00 Acetaminophen (Ofirmev 1000mg/ 100ml Iv) 100 ml @ 400 mls/hr Q6H PRN IVPB FEVER; Start 02/09/17 at 12:00 Lorazepam (Ativan) 1 mg Q2 PRN IV AGITATION Last administered on 02/14/17t 14: 22; Admin Dose 1 MG; Start 02/10/17 at 12:30 Ondansetron HCl (Zofran Inj) 4 mg Q6H PRN IV NAUSEA AND/OR VOMITING; Start 01/20 at 14:30 CARLOS SOLIZ NP Feb 14, 2017 17:28
--- NOTE | 2017-02-14 18:14 | PN ---
Date/Time of Note Date/Time of Note DATE: 02/14/17 TIME: 18:06 Assessment/Plan VTE Prophylaxis VTE Prophylaxis Intervention: heparin Lines/Catheters IV Catheter Type (from Nrs): Central Line Central line still needed: Yes Urinary Cath still in place: Yes Reason Cath still needed: other (indicate) Assessment/Plan Chief Complaint/Hosp Course Stage IIIc - IV ovarian cancer Problems: Assessment/Plan A- gradual impvt put issue is anticoag and in general recovery and very advanced P- Important to address possible need for DVT but quite medicated and stoped abx early Subjective 24 Hr Interval Summary Free Text/Dictation More alert but minimal and understands who I am and communicates; adequate control of pain. Exam/Review of Systems Vital Signs Vitals Vital Signs Date Time Temp Pulse Resp B/P Pulse Ox O2 Delivery O2 Flow Rate FiO2 02/14/17 16:16 108 02/14/17 15:22 99.7 21 125/77 97 02/14/17 08:10 Nasal Cannula 3.0 Intake and Output 02/13/17 02/13/17 02/14/17 15:00 23:00 07:00 Intake Total 50 ml 1682 ml Output Total 3590 ml 1155 ml Balance -3540 ml 527 ml Exam Resp- come congestion CVS- NSR Abd- digestion but mild discomfort Ext- less edema NT Results Result Diagram: 02/14/17 0632 02/14/17 0632 Results 24 hrs Laboratory Tests Test 02/13/17 22:22 02/14/17 06:31 02/14/17 06:32 02/14/17 14:26 Bedside Glucose 95 108 110 White Blood Count 15.8 H Red Blood Count 3.15 L Hemoglobin 8.4 L Hematocrit 28.5 L Mean Corpuscular Volume 90.5 Mean Corpuscular Hemoglobin 26.7 L Mean Corpuscular Hemoglobin Concent 29.5 L Red Cell Distribution Width 18.9 H Platelet Count 720 H Mean Platelet Volume 12.6 H Neutrophils % 85.2 H Lymphocytes % 4.4 L Monocytes % 7.7 Eosinophils % 1.3 Basophils % 0.1 Nucleated Red Blood Cells % 0.4 H Neutrophils # 13.5 H Lymphocytes # 0.7 L Monocytes # 1.2 H Eosinophils # 0.2 Basophils # 0.0 Nucleated Red Blood Cells # 0.1 H Sodium Level 146 H Potassium Level 3.7 Chloride Level 108 Carbon Dioxide Level 30 Anion Gap 12 Blood Urea Nitrogen 14 Creatinine 0.56 Glucose Level 102 Calcium Level 8.2 L Phosphorus Level 3.4 Magnesium Level 1.9 Medications Medications Current Medications Acetaminophen (Tylenol Tab) 650 mg Q6H PRN PO PAIN LEVEL 1-3 OR FEVER Last administered on 02/06/17 23:54; Admin Dose 650 MG; Start 01/22/17 at 16:00; Status Future Hold Docusate Sodium (Colace) 100 mg Q12H PRN PO CONSTIPATION; Start 01/22/17 at 16 :00 Magnesium Hydroxide (Milk Of Mag) 30 ml DAILY PRN PO CONSTIPATION Last administered on 01/31/17 07:38; Admin Dose 30 ML; Start 01/22/17 at 16:00 Bisacodyl (Dulcolax) 5 mg DAILY PRN PO CONSTIPATION Last administered on 05:07; Admin Dose 5 MG; Start 01/22/17 at 16:00 Polyethylene Glycol (Miralax) 17 gm DAILY PO Last administered on 02/09/17 09: 00; Admin Dose 17 GM; Start 01/26/17 at 15:30 Sodium Biphosphate/ Sodium Phosphate (Fleet Enema) 133 ml DAILY PRN [place] CONSTIPATION Last administered on 01/27/17 06:17; Admin Dose 133 ML; Start at 20:30 Tolterodine Tartrate (Detrol La) 4 mg DAILY PO Last administered on 02/13/17 09:33; Admin Dose 4 MG; Start 01/27/17 at 15:30 Morphine Sulfate 2 mg 2 mg Q2H PRN IV PAIN LEVEL 7-10 Last administered on 02/12 08:59; Admin Dose 2 MG; Start 01/28/17 at 14:00 Ondansetron HCl/ Dextrose (Zofran Inj/D5W) 54 ml @ 108 mls/hr Q6H PRN IV NAUSEA AND/OR VOMITING; Start 01/31/17 at 12:00 Hydromorphone HCl (Dilaudid) 1 mg Q2H PRN IV PAIN LEVEL 6-10 Last administered on 02/14/17 12:29; Admin Dose 1 MG; Start 02/02/17 at 11:30 Diphenhydramine HCl (Benadryl) 25 mg Q6H PRN IV ITCHING Last administered on 17:19; Admin Dose 25 MG; Start 02/02/17 at 11:30 Acetaminophen (Tylenol Liquid) 650 mg Q4H PRN GTB PAIN AND OR ELEVATED TEMP Last administered on 02/06/17 16:19; Admin Dose 650 MG; Start 02/04/17 at 08:30 ; Status Future Hold Docusate Sodium 100 mg 100 mg BID NGT Last administered on 02/11/17 21:22; Admin Dose 100 MG; Start 02/05/17 at 09:00 Fat Emulsion Intravenous 250 ml @ 10 mls/hr Q24H IV Last administered on 02/14 03:03; Admin Dose 10 MLS/HR; Start 02/05/17 at 20:00 Total Parenteral Nutrition (Tpn) 1,000 ml @ 70 mls/hr [id number] IV Last administered on 02/14/17 08:37; Admin Dose 70 MLS/HR; Start 02/05/17 at 20:00 Furosemide (Lasix) 20 mg DAILY IV Last administered on 02/13/17 09:33; Admin Dose 20 MG; Start 02/07/17 at 11:00; Status Future Hold Diagnostic Test (Pha) 1 ea 1 ea Q8 XX Last administered on 02/14/17 06:33; Admin Dose 1 EA; Start 02/07/17 at 22:00 Acetaminophen (Ofirmev 1000mg/ 100ml Iv) 100 ml @ 400 mls/hr Q6H PRN IVPB FEVER; Start 02/09/17 at 12:00 Lorazepam (Ativan) 1 mg Q2 PRN IV AGITATION Last administered on 02/14/17 14: 22; Admin Dose 1 MG; Start 02/10/17 at 12:30 Ondansetron HCl (Zofran Inj) 4 mg Q6H PRN IV NAUSEA AND/OR VOMITING; Start 01/20 at 14:30 RAUL EUCEDA MD Feb 14, 2017 18:14
[2017-02-14 19:19] LABS: ALBUMIN 2.5 g/dl (3.3-4.9); ALBUMIN/GLOBULIN RATIO 0.75; BILIRUBIN,INDIRECT 0.1 mg/dl (0-1.1); BILIRUBIN,TOTAL 0.1 mg/dl (0.2-1.3); CALCIUM 8.1 mg/dl (8.4-10.2); CREATININE 0.56 mg/dl (0.44-1.00); POTASSIUM 3.5 mmol/L (3.5-5.1); TOTAL PROTEIN 5.8 g/dl (6.1-8.1)
[2017-02-15] VITALS (11 sets, daily range): BP systolic 126–144; BP diastolic 68–88; PULSE 89–110; RESP 17–24
[2017-02-15] MEDS: HYDROmorphONE 0.5 MG/0.5 ML SYG IV PRN ×6 (00:15→20:13)
[2017-02-15] MEDS: FAT EMULSION 20% 250 ML IV SCH (03:03)
[2017-02-15] MEDS: ACCU-CHEK XX SCH ×3 (06:00→22:55)
[2017-02-15 06:34] LABS: BASOPHILS % 0.2 % (0.0-2.0); EOSINOPHILS # 0.1 10^3/ul (0.0-0.5); EOSINOPHILS % 0.9 % (0.0-7.0); HEMATOCRIT 27.1 % (37.0-47.0); HEMOGLOBIN 8.2 g/dl (12.0-16.0); LYMPHOCYTES # 0.7 10^3/ul (0.8-2.9); MEAN CORPUSCULAR HEMOGLOBIN 27.3 pg (29.0-33.0); MEAN CORPUSCULAR HGB CONC 30.3 g/dl (32.0-37.0); MEAN CORPUSCULAR VOLUME 90.3 fl (82.0-101.0); MEAN PLATELET VOLUME 12.6 fl (7.4-10.4); MONOCYTE # 1.1 10^3/ul (0.3-0.9); MONOCYTES % 6.7 % (0.0-11.0); NEUTROPHIL # 14.4 10^3/ul (1.6-7.5); NEUTROPHILS % 87.2 % (39.0-77.0); NUCLEATED RED BLOOD CELLS% 0.2 /100WBC (0.0-0.0); PLATELET COUNT 732 10^3/UL (140-415); RED CELL DISTRIBUTION WIDTH 18.9 % (11.5-14.5); WHITE BLOOD COUNT 16.5 10^3/ul (4.8-10.8)
[2017-02-15 06:58] LABS: INR 0.98
[2017-02-15] MEDS: POLYETHYLENE GLYCOL 17 GM PACKET PO SCH (09:00)
[2017-02-15] MEDS: TOLTERODINE (SR) 4 MG CAP PO SCH (09:00)
[2017-02-15] MEDS: DOCUSATE SODIUM 10 MG/ML (10ML CUP) NGT SCH ×2 (09:00→20:12)
[2017-02-15] MEDS ORDERED: VITAMIN A & D 5 GM OINT PACKET TOP ONE (10:11)
--- NOTE | 2017-02-15 11:14 | CONS ---
Date/Time of Note Date/Time of Note DATE: 02/15/17 TIME: 11:13 Consult Date/Type/Reason Admit Date/Time Jan 22, 2017 at 14:12 Initial Consult Date 02/03/17 Type of Consultation: Pulmonary Ordering Provider: DAYANARA BROWN MD Subjective Comfortable this morning. Objective Vital Signs Date Time Temp Pulse Resp B/P Pulse Ox O2 Delivery O2 Flow Rate FiO2 02/15/17 08:30 Nasal Cannula 3.0 02/15/17 08:09 110 02/15/17 08:00 98.2 18 144/68 100 Intake and Output 02/14/17 02/14/17 02/15/17 15:00 23:00 07:00 Intake Total 50 ml 960 ml 960 ml Output Total 120 ml 1375 ml 1375 ml Balance -70 ml -415 ml -415 ml Exam GENERAL: Chronically ill-appearing lady appears comfortable at rest no acute distress VITAL SIGNS: per chart NECK: Supple. No JVD or lymphadenopathy. CARDIAC EXAM: S1, S2. No added sounds or murmurs. CHEST: Diminished air entry bilaterally ABDOMEN: Soft, nontender. No guarding or rebound. EXTREMITIES: No cyanosis, clubbing or edema. NEUROLOGIC: Generalized weakness. No focal deficits. Results/Medications Result Diagram: 02/15/17 0608 02/14/17 1842 Results 24 hrs Laboratory Tests Test 02/14/17 14:26 02/14/17 18:42 02/14/17 22:08 02/15/17 05:44 Bedside Glucose 110 102 90 Sodium Level 146 H Potassium Level 3.5 Chloride Level 110 Carbon Dioxide Level 28 Anion Gap 12 Blood Urea Nitrogen 13 Creatinine 0.56 Glucose Level 102 Calcium Level 8.1 L Total Bilirubin 0.1 L Direct Bilirubin 0.00 Indirect Bilirubin 0.1 Aspartate Amino Transf (AST/SGOT) 39 Alanine Aminotransferase (ALT/SGPT) 87 H Alkaline Phosphatase 253 H Total Protein 5.8 L Albumin 2.5 L Globulin 3.30 H Albumin/Globulin Ratio 0.75 Test 02/15/17 06:08 White Blood Count 16.5 H Red Blood Count 3.00 L Hemoglobin 8.2 L Hematocrit 27.1 L Mean Corpuscular Volume 90.3 Mean Corpuscular Hemoglobin 27.3 L Mean Corpuscular Hemoglobin Concent 30.3 L Red Cell Distribution Width 18.9 H Platelet Count 732 H Mean Platelet Volume 12.6 H Neutrophils % 87.2 H Lymphocytes % 4.0 L Monocytes % 6.7 Eosinophils % 0.9 Basophils % 0.2 Nucleated Red Blood Cells % 0.2 H Neutrophils # 14.4 H Lymphocytes # 0.7 L Monocytes # 1.1 H Eosinophils # 0.1 Basophils # 0.0 Nucleated Red Blood Cells # 0.0 Prothrombin Time 13.0 Prothrombin Time Ratio 1.0 INR International Normalized Ratio 0.98 Medications Current Medications Acetaminophen (Tylenol Tab) 650 mg Q6H PRN PO PAIN LEVEL 1-3 OR FEVER Last administered on 02/06/17 23:54; Admin Dose 650 MG; Start 01/22/17 at 16:00; Status Future Hold Docusate Sodium (Colace) 100 mg Q12H PRN PO CONSTIPATION; Start 01/22/17 at 16 :00 Magnesium Hydroxide (Milk Of Mag) 30 ml DAILY PRN PO CONSTIPATION Last administered on 01/31/17 07:38; Admin Dose 30 ML; Start 01/22/17 at 16:00 Bisacodyl (Dulcolax) 5 mg DAILY PRN PO CONSTIPATION Last administered on 05:07; Admin Dose 5 MG; Start 01/22/17 at 16:00 Polyethylene Glycol (Miralax) 17 gm DAILY PO Last administered on 02/09/17 09: 00; Admin Dose 17 GM; Start 01/26/17 at 15:30 Sodium Biphosphate/ Sodium Phosphate (Fleet Enema) 133 ml DAILY PRN [place] CONSTIPATION Last administered on 01/27/17 06:17; Admin Dose 133 ML; Start at 20:30 Tolterodine Tartrate (Detrol La) 4 mg DAILY PO Last administered on 02/13/17 09:33; Admin Dose 4 MG; Start 01/27/17 at 15:30 Morphine Sulfate 2 mg 2 mg Q2H PRN IV PAIN LEVEL 7-10 Last administered on 02/12 08:59; Admin Dose 2 MG; Start 01/28/17 at 14:00 Ondansetron HCl/ Dextrose (Zofran Inj/D5W) 54 ml @ 108 mls/hr Q6H PRN IV NAUSEA AND/OR VOMITING; Start 01/31/17 at 12:00 Hydromorphone HCl (Dilaudid) 1 mg Q2H PRN IV PAIN LEVEL 6-10 Last administered on 02/15/17 07:57; Admin Dose 1 MG; Start 02/02/17 at 11:30 Diphenhydramine HCl (Benadryl) 25 mg Q6H PRN IV ITCHING Last administered on 17:19; Admin Dose 25 MG; Start 02/02/17 at 11:30 Acetaminophen (Tylenol Liquid) 650 mg Q4H PRN GTB PAIN AND OR ELEVATED TEMP Last administered on 02/06/17 16:19; Admin Dose 650 MG; Start 02/04/17 at 08:30 ; Status Future Hold Docusate Sodium 100 mg 100 mg BID NGT Last administered on 02/14/17 20:49; Admin Dose 100 MG; Start 02/05/17 at 09:00 Fat Emulsion Intravenous 250 ml @ 10 mls/hr Q24H IV Last administered on 02/15 03:03; Admin Dose 10 MLS/HR; Start 02/05/17 at 20:00 Total Parenteral Nutrition (Tpn) 1,000 ml @ 70 mls/hr [id number] IV Last administered on 02/14/17 22:51; Admin Dose 70 MLS/HR; Start 02/05/17 at 20:00 Furosemide (Lasix) 20 mg DAILY IV Last administered on 02/13/17 09:33; Admin Dose 20 MG; Start 02/07/17 at 11:00; Status Future Hold Diagnostic Test (Pha) 1 ea 1 ea Q8 XX Last administered on 02/14/17 06:33; Admin Dose 1 EA; Start 02/07/17 at 22:00 Acetaminophen (Ofirmev 1000mg/ 100ml Iv) 100 ml @ 400 mls/hr Q6H PRN IVPB FEVER; Start 02/09/17 at 12:00 Lorazepam (Ativan) 1 mg Q2 PRN IV AGITATION Last administered on 02/14/17 14: 22; Admin Dose 1 MG; Start 02/10/17 at 12:30 Ondansetron HCl (Zofran Inj) 4 mg Q6H PRN IV NAUSEA AND/OR VOMITING; Start 01/20 at 14:30 Assessment/Plan Chief Complaint/Hosp Course Assessment 1. Hypoxemic respiratory failure with alveolar hypoventilation neuromuscular weakness, now extubated. Bilateral pulmonary emboli. 2. Recent diagnosis of stage IV ovarian cancer status post hysterectomy with bilateral salpingo-oophorectomy 3. Postop ileus slowly resolving 4. Status post septic shock. 5. Mild leukocytosis. 6. Postop delirium, Plan 1. Avoid sedatives, PT eval encourage out of bed 2. Aspiration precautions. 3. Continue postop surgical recommendations 4. DVT GI prophylaxis 5. Status post IVC filter placement. 6. Status post CT-guided drainage of right upper quadrant fluid collection. 7. Iron studies Ferrlecit. 8. Correct electrolytes. Consider transfer to [facility]. Problems: SERA NAVARRO MD, [facility] Feb 15, 2017 11:14
--- NOTE | 2017-02-15 12:24 | PN ---
Date/Time of Note Date/Time of Note DATE: 02/15/17 TIME: 12:23 Assessment/Plan VTE Prophylaxis VTE Prophylaxis Intervention: other (IVC filter) Lines/Catheters IV C[facility] Type (from [facility] Central Line Central line still needed: Yes Urinary Cath still in place: Yes Reason Cath still needed: urinary retention Assessment/Plan Chief Complaint/Hosp Course Assessment/Plan: 56 yo F with known stage 4 ovarian Ca here admitted for abd pain from malignant ascites sp para 10.19, sp ureteral stenting as well sp debulking surgery on February 03. ovarian cancer: Status post debulking surgery postop day # 12, extubated 7 days ago, sp pressors but off these now, onc and hydrator onc still following. 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 Empiric abx started 02.05 for fever, urine cultures negative, CXR without focal consolidation. respiratory culture with NRF. + blood cultures as well, now with bilateral pulmonary embolisms. - Continue pain medications, TPN for now, continue abx as per ID caspofungin and Vanco - Follow-up gynecologic onc, pulm, and heme onc recommendations -per discussion with hematology team to days ago, patient may begin radiation therapy early next week, and depending on how patient responds, chemotherapy afterwards. - f/u PT/OT evals -continue antibiotics -For bilateral pulmonary embolisms, status post IVC filter placement 3 days ago, stopped heparin drip 2 days ago secondary to mild bleeding, monitor for now 2. subclinical hypothyroid: outpatient f/u 3. Low hemoglobin: Patient received blood transfusion 5 days ago. -Continue to monitor for now 4. Hypernatremia: Still slightly present, BMP pending -Monitor for now, consider free water, recheck BMP in the morning Problems: Subjective 24 Hr Interval Summary Free Text/Dictation Patient a little bit more lethargic today, otherwise no acute events overnight. Exam/Review of Systems Vital Signs Vitals Vital Signs Date Time Temp Pulse Resp B/P Pulse Ox O2 Delivery O2 Flow Rate FiO2 02/15/17 12:14 98 02/15/17 11:31 98.0 20 126/85 100 02/15/17 08:30 Nasal Cannula 3.0 Intake and Output 02/14/17 02/14/17 02/15/17 15:00 23:00 07:00 Intake Total 50 ml 960 ml 960 ml Output Total 120 ml 1375 ml 1375 ml Balance -70 ml -415 ml -415 ml Exam Gen: Positive lethargy, opens eyes occasionally HEENT: PERRL, EOMI, anicteric Neck: Trach midline Respiratory: Clear anterior, some diminished BLL Cardiovascular: NSR on tele, radial pulses 2+ bilaterally Gastrointestinal: Soft, bilateral J/P drains Extremities: Warm, no cyanosis, trace edema Neurological: No focal deficits Results Result Diagram: 02/15/17 0608 02/14/17 1842 Results 24 hrs Laboratory Tests Test 02/14/17 14:26 02/14/17 18:42 02/14/17 22:08 02/15/17 05:44 Bedside Glucose 110 102 90 Sodium Level 146 H Potassium Level 3.5 Chloride Level 110 Carbon Dioxide Level 28 Anion Gap 12 Blood Urea Nitrogen 13 Creatinine 0.56 Glucose Level 102 Calcium Level 8.1 L Total Bilirubin 0.1 L Direct Bilirubin 0.00 Indirect Bilirubin 0.1 Aspartate Amino Transf (AST/SGOT) 39 Alanine Aminotransferase (ALT/SGPT) 87 H Alkaline Phosphatase 253 H Total Protein 5.8 L Albumin 2.5 L Globulin 3.30 H Albumin/Globulin Ratio 0.75 Test 02/15/17 06:08 White Blood Count 16.5 H Red Blood Count 3.00 L Hemoglobin 8.2 L Hematocrit 27.1 L Mean Corpuscular Volume 90.3 Mean Corpuscular Hemoglobin 27.3 L Mean Corpuscular Hemoglobin Concent 30.3 L Red Cell Distribution Width 18.9 H Platelet Count 732 H Mean Platelet Volume 12.6 H Neutrophils % 87.2 H Lymphocytes % 4.0 L Monocytes % 6.7 Eosinophils % 0.9 Basophils % 0.2 Nucleated Red Blood Cells % 0.2 H Neutrophils # 14.4 H Lymphocytes # 0.7 L Monocytes # 1.1 H Eosinophils # 0.1 Basophils # 0.0 Nucleated Red Blood Cells # 0.0 Prothrombin Time 13.0 Prothrombin Time Ratio 1.0 INR International Normalized Ratio 0.98 Medications Medications Current Medications Acetaminophen (Tylenol Tab) 650 mg Q6H PRN PO PAIN LEVEL 1-3 OR FEVER Last administered on 02/06/17t 23:54; Admin Dose 650 MG; Start 01/22/17 at 16:00; Status Future Hold Docusate Sodium (Colace) 100 mg Q12H PRN PO CONSTIPATION; Start 01/22/17 at 16 :00 Magnesium Hydroxide (Milk Of Mag) 30 ml DAILY PRN PO CONSTIPATION Last administered on 01/31/17 07:38; Admin Dose 30 ML; Start 01/22/17 at 16:00 Bisacodyl (Dulcolax) 5 mg DAILY PRN PO CONSTIPATION Last administered on 05:07; Admin Dose 5 MG; Start 01/22/17 at 16:00 Polyethylene Glycol (Miralax) 17 gm DAILY PO Last administered on 02/09/17 09: 00; Admin Dose 17 GM; Start 01/26/17 at 15:30 Sodium Biphosphate/ Sodium Phosphate (Fleet Enema) 133 ml DAILY PRN [place] CONSTIPATION Last administered on 01/27/17 06:17; Admin Dose 133 ML; Start at 20:30 Tolterodine Tartrate (Detrol La) 4 mg DAILY PO Last administered on 02/13/17 09:33; Admin Dose 4 MG; Start 01/27/17 at 15:30 Morphine Sulfate 2 mg 2 mg Q2H PRN IV PAIN LEVEL 7-10 Last administered on 02/12 08:59; Admin Dose 2 MG; Start 01/28/17 at 14:00 Ondansetron HCl/ Dextrose (Zofran Inj/D5W) 54 ml @ 108 mls/hr Q6H PRN IV NAUSEA AND/OR VOMITING; Start 01/31/17 at 12:00 Hydromorphone HCl (Dilaudid) 1 mg Q2H PRN IV PAIN LEVEL 6-10 Last administered on 02/15/17 12:04; Admin Dose 1 MG; Start 02/02/17 at 11:30 Diphenhydramine HCl (Benadryl) 25 mg Q6H PRN IV ITCHING Last administered on 17:19; Admin Dose 25 MG; Start 02/02/17 at 11:30 Acetaminophen (Tylenol Liquid) 650 mg Q4H PRN GTB PAIN AND OR ELEVATED TEMP Last administered on 02/06/17 16:19; Admin Dose 650 MG; Start 02/04/17 at 08:30 ; Status Future Hold Docusate Sodium 100 mg 100 mg BID NGT Last administered on 11/11/17at 20:49; Admin Dose 100 MG; Start 02/05/17 at 09:00 Fat Emulsion Intravenous 250 ml @ 10 mls/hr Q24H IV Last administered on 02/15 03:03; Admin Dose 10 MLS/HR; Start 02/05/17 at 20:00 Total Parenteral Nutrition (Tpn) 1,000 ml @ 70 mls/hr [id number] IV Last administered on 02/14/17 22:51; Admin Dose 70 MLS/HR; Start 02/05/17 at 20:00 Furosemide (Lasix) 20 mg DAILY IV Last administered on 02/13/17 09:33; Admin Dose 20 MG; Start 02/07/17 at 11:00; Status Future Hold Diagnostic Test (Pha) 1 ea 1 ea Q8 XX Last administered on 02/14/17 06:33; Admin Dose 1 EA; Start 02/07/17 at 22:00 Acetaminophen (Ofirmev 1000mg/ 100ml Iv) 100 ml @ 400 mls/hr Q6H PRN IVPB FEVER; Start 02/09/17 at 12:00 Lorazepam (Ativan) 1 mg Q2 PRN IV AGITATION Last administered on 02/14/17 14: 22; Admin Dose 1 MG; Start 02/10/17 at 12:30 Ondansetron HCl (Zofran Inj) 4 mg Q6H PRN IV NAUSEA AND/OR VOMITING; Start 01/20 at 14:30 KENTRELL MACIAS Feb 15, 2017 12:24
[2017-02-15] MEDS: TPN 1,000 ML IV SCH ×2 (14:18→22:55)
[2017-02-15 14:34] LABS: CALCIUM 8.1 mg/dl (8.4-10.2); CREATININE 0.5 mg/dl (0.44-1.00); POTASSIUM 3.7 mmol/L (3.5-5.1)
--- NOTE | 2017-02-15 15:35 | PN ---
Date/Time of Note Date/Time of Note DATE: 02/15/17 TIME: 15:31 Assessment/Plan VTE Prophylaxis VTE Prophylaxis Intervention: heparin Lines/Catheters IV Catheter Type (from Nrs): Central Line Central line still needed: Yes Urinary Cath still in place: Yes Reason Cath still needed: urinary retention Assessment/Plan Chief Complaint/Hosp Course Stage IIIc - IV ovarian cancer Problems: Assessment/Plan A- much move conversant and alert and comfortable. P- will attempt to d/c NGT by checking residual Subjective 24 Hr Interval Summary Free Text/Dictation + flatus and BM. Much more conversational and positive with some discomfort. Exam/Review of Systems Vital Signs Vitals Vital Signs Date Time Temp Pulse Resp B/P Pulse Ox O2 Delivery O2 Flow Rate FiO2 02/15/17 14:56 98.0 123 20 138/88 96 02/15/17 08:30 Nasal Cannula 3.0 Intake and Output 02/14/17 02/14/17 02/15/17 15:00 23:00 07:00 Intake Total 50 ml 960 ml 960 ml Output Total 120 ml 1375 ml 1375 ml Balance -70 ml -415 ml -415 ml Exam Resp- clear CVS- NSR Abd- some distension minimal pain and clean Ext- less edema Results Result Diagram: 02/15/17 0608 02/15/17 1404 Results 24 hrs Laboratory Tests Test 02/14/17 18:42 02/14/17 22:08 02/15/17 05:44 02/15/17 06:08 Sodium Level 146 H Potassium Level 3.5 Chloride Level 110 Carbon Dioxide Level 28 Anion Gap 12 Blood Urea Nitrogen 13 Creatinine 0.56 Glucose Level 102 Calcium Level 8.1 L Total Bilirubin 0.1 L Direct Bilirubin 0.00 Indirect Bilirubin 0.1 Aspartate Amino Transf (AST/SGOT) 39 Alanine Aminotransferase (ALT/SGPT) 87 H Alkaline Phosphatase 253 H Total Protein 5.8 L Albumin 2.5 L Globulin 3.30 H Albumin/Globulin Ratio 0.75 Bedside Glucose 102 90 White Blood Count 16.5 H Red Blood Count 3.00 L Hemoglobin 8.2 L Hematocrit 27.1 L Mean Corpuscular Volume 90.3 Mean Corpuscular Hemoglobin 27.3 L Mean Corpuscular Hemoglobin Concent 30.3 L Red Cell Distribution Width 18.9 H Platelet Count 732 H Mean Platelet Volume 12.6 H Neutrophils % 87.2 H Lymphocytes % 4.0 L Monocytes % 6.7 Eosinophils % 0.9 Basophils % 0.2 Nucleated Red Blood Cells % 0.2 H Neutrophils # 14.4 H Lymphocytes # 0.7 L Monocytes # 1.1 H Eosinophils # 0.1 Basophils # 0.0 Nucleated Red Blood Cells # 0.0 Prothrombin Time 13.0 Prothrombin Time Ratio 1.0 INR International Normalized Ratio 0.98 Test 02/15/17 14:04 02/15/17 14:05 Sodium Level 145 H Potassium Level 3.7 Chloride Level 109 Carbon Dioxide Level 28 Anion Gap 12 Blood Urea Nitrogen 12 Creatinine 0.50 Glucose Level 105 Calcium Level 8.1 L Bedside Glucose 102 Medications Medications Current Medications Acetaminophen (Tylenol Tab) 650 mg Q6H PRN PO PAIN LEVEL 1-3 OR FEVER Last administered on 02/06/17 23:54; Admin Dose 650 MG; Start 01/22/17 at 16:00; Status Future Hold Docusate Sodium (Colace) 100 mg Q12H PRN PO CONSTIPATION; Start 01/22/17 at 16 :00 Magnesium Hydroxide (Milk Of Mag) 30 ml DAILY PRN PO CONSTIPATION Last administered on 01/31/17 07:38; Admin Dose 30 ML; Start 01/22/17 at 16:00 Bisacodyl (Dulcolax) 5 mg DAILY PRN PO CONSTIPATION Last administered on 05:07; Admin Dose 5 MG; Start 01/22/17 at 16:00 Polyethylene Glycol (Miralax) 17 gm DAILY PO Last administered on 02/09/17 09: 00; Admin Dose 17 GM; Start 01/26/17 at 15:30 Sodium Biphosphate/ Sodium Phosphate (Fleet Enema) 133 ml DAILY PRN [place] CONSTIPATION Last administered on 01/27/17 06:17; Admin Dose 133 ML; Start at 20:30 Tolterodine Tartrate (Detrol La) 4 mg DAILY PO Last administered on 02/13/17 09:33; Admin Dose 4 MG; Start 01/27/17 at 15:30 Morphine Sulfate 2 mg 2 mg Q2H PRN IV PAIN LEVEL 7-10 Last administered on 02/12 08:59; Admin Dose 2 MG; Start 01/28/17 at 14:00 Ondansetron HCl/ Dextrose (Zofran Inj/D5W) 54 ml @ 108 mls/hr Q6H PRN IV NAUSEA AND/OR VOMITING; Start 01/31/17 at 12:00 Hydromorphone HCl (Dilaudid) 1 mg Q2H PRN IV PAIN LEVEL 6-10 Last administered on 02/15/17 15:22; Admin Dose 1 MG; Start 02/02/17 at 11:30 Diphenhydramine HCl (Benadryl) 25 mg Q6H PRN IV ITCHING Last administered on 17:19; Admin Dose 25 MG; Start 02/02/17 at 11:30 Acetaminophen (Tylenol Liquid) 650 mg Q4H PRN GTB PAIN AND OR ELEVATED TEMP Last administered on 02/06/17 16:19; Admin Dose 650 MG; Start 02/04/17 at 08:30 ; Status Future Hold Docusate Sodium 100 mg 100 mg BID NGT Last administered on 02/14/17 20:49; Admin Dose 100 MG; Start 02/05/17 at 09:00 Fat Emulsion Intravenous 250 ml @ 10 mls/hr Q24H IV Last administered on 02/15 03:03; Admin Dose 10 MLS/HR; Start 02/05/17 at 20:00 Total Parenteral Nutrition (Tpn) 1,000 ml @ 70 mls/hr [id number] IV Last administered on 02/15/17 14:18; Admin Dose 70 MLS/HR; Start 02/05/17 at 20:00 Furosemide (Lasix) 20 mg DAILY IV Last administered on 02/13/17 09:33; Admin Dose 20 MG; Start 02/07/17 at 11:00; Status Future Hold Diagnostic Test (Pha) 1 ea 1 ea Q8 XX Last administered on 02/14/17 06:33; Admin Dose 1 EA; Start 02/07/17 at 22:00 Acetaminophen (Ofirmev 1000mg/ 100ml Iv) 100 ml @ 400 mls/hr Q6H PRN IVPB FEVER; Start 02/09/17 at 12:00 Lorazepam (Ativan) 1 mg Q2 PRN IV AGITATION Last administered on 02/14/17 14: 22; Admin Dose 1 MG; Start 02/10/17 at 12:30 Ondansetron HCl (Zofran Inj) 4 mg Q6H PRN IV NAUSEA AND/OR VOMITING; Start 01/20 at 14:30 RAUL EUCEDA MD Feb 15, 2017 15:35
--- NOTE | 2017-02-15 16:34 | CONS ---
Date/Time of Note Date/Time of Note DATE: 02/15/17 TIME: 16:23 Consultation Date/Type/Reason Admit Date/Time Jan 22, 2017 at 14:12 Initial Consult Date SUBJECTIVE: No events overnight. S/P IVC filter placement. Patient is awake, looks comfortable resting in bed. NG tube is in place. VS: 138/88 P:123 R:20 SO2:96% T:98.0 LABS: WBC-16.5 H&H: 8.2/27.1 ANTIMICROBIALS: none INDWELLINGS: Triple lumen catheter JPs, Cullen catheter, R abd pigtail. PHYSICAL EXAMINATION: GENERAL: This is a wasted, chronically ill-appearing, 56-year-old woman who is awake, in no distress. HEENT: Head atraumatic, normocephalic. Sclerae icteric. Buccal mucosa dry. NECK: Supple. CHEST: Rise symmetrical. Breath sounds diminished at bases. HEART: S1, S2. ABDOMEN: Soft, bowel tones present, incision clean. EXTREMITIES: With trace edema. ASSESSMENT: 1. Systemic inflammatory response syndrome with persistent leukocytosis. 2. Intraabdominal abscess, s/p CT-guided drainage 02/10/17. 3. Bilateral pulmonary emboli. 4. Metastatic ovarian cancer, status post tumor debulking on 02/02/2017. 5. Bilateral hydronephrosis, status post JJ stent placement on 01/24/2017. 6. Status post alpha hemolytic streptococci urinary tract infection. 7. Cachexia. 8. Encephalopathy. PLAN: Remains stable, off of abx. Repeat cultures PRN. Type of Consultation: ID Referring Provider: DAYANARA BROWN MD Exam/Review of Systems Vital Signs Vitals Vital Signs Date Time Temp Pulse Resp B/P Pulse Ox O2 Delivery O2 Flow Rate FiO2 02/15/17 16:16 89 02/15/17 14:56 98.0 20 138/88 96 02/15/17 08:30 Nasal Cannula 3.0 Intake and Output 02/14/17 02/14/17 02/15/17 15:00 23:00 07:00 Intake Total 50 ml 960 ml 960 ml Output Total 120 ml 1375 ml 1375 ml Balance -70 ml -415 ml -415 ml Results Result Diagram: 02/15/17 0608 02/15/17 1404 Results 24 hrs Laboratory Tests Test 02/14/17 18:42 02/14/17 22:08 02/15/17 05:44 02/15/17 06:08 Sodium Level 146 H Potassium Level 3.5 Chloride Level 110 Carbon Dioxide Level 28 Anion Gap 12 Blood Urea Nitrogen 13 Creatinine 0.56 Glucose Level 102 Calcium Level 8.1 L Total Bilirubin 0.1 L Direct Bilirubin 0.00 Indirect Bilirubin 0.1 Aspartate Amino Transf (AST/SGOT) 39 Alanine Aminotransferase (ALT/SGPT) 87 H Alkaline Phosphatase 253 H Total Protein 5.8 L Albumin 2.5 L Globulin 3.30 H Albumin/Globulin Ratio 0.75 Bedside Glucose 102 90 White Blood Count 16.5 H Red Blood Count 3.00 L Hemoglobin 8.2 L Hematocrit 27.1 L Mean Corpuscular Volume 90.3 Mean Corpuscular Hemoglobin 27.3 L Mean Corpuscular Hemoglobin Concent 30.3 L Red Cell Distribution Width 18.9 H Platelet Count 732 H Mean Platelet Volume 12.6 H Neutrophils % 87.2 H Lymphocytes % 4.0 L Monocytes % 6.7 Eosinophils % 0.9 Basophils % 0.2 Nucleated Red Blood Cells % 0.2 H Neutrophils # 14.4 H Lymphocytes # 0.7 L Monocytes # 1.1 H Eosinophils # 0.1 Basophils # 0.0 Nucleated Red Blood Cells # 0.0 Prothrombin Time 13.0 Prothrombin Time Ratio 1.0 INR International Normalized Ratio 0.98 Test 02/15/17 14:04 02/15/17 14:05 Sodium Level 145 H Potassium Level 3.7 Chloride Level 109 Carbon Dioxide Level 28 Anion Gap 12 Blood Urea Nitrogen 12 Creatinine 0.50 Glucose Level 105 Calcium Level 8.1 L Bedside Glucose 102 Medications Medications Current Medications Acetaminophen (Tylenol Tab) 650 mg Q6H PRN PO PAIN LEVEL 1-3 OR FEVER Last administered on 02/06/17 23:54; Admin Dose 650 MG; Start 01/22/17 at 16:00; Status Future Hold Docusate Sodium (Colace) 100 mg Q12H PRN PO CONSTIPATION; Start 01/22/17 at 16 :00 Magnesium Hydroxide (Milk Of Mag) 30 ml DAILY PRN PO CONSTIPATION Last administered on 01/31/17 07:38; Admin Dose 30 ML; Start 01/22/17 at 16:00 Bisacodyl (Dulcolax) 5 mg DAILY PRN PO CONSTIPATION Last administered on 05:07; Admin Dose 5 MG; Start 01/22/17 at 16:00 Polyethylene Glycol (Miralax) 17 gm DAILY PO Last administered on 02/09/17 09: 00; Admin Dose 17 GM; Start 01/26/17 at 15:30 Sodium Biphosphate/ Sodium Phosphate (Fleet Enema) [address] CONSTIPATION Last administered on 01/27/17 06:17; Admin Dose 133 ML; Start at 20:30 Tolterodine Tartrate (Detrol La) 4 mg DAILY PO Last administered on 02/13/17 09:33; Admin Dose 4 MG; Start 01/27/17 at 15:30 Morphine Sulfate 2 mg 2 mg Q2H PRN IV PAIN LEVEL 7-10 Last administered on 02/12 08:59; Admin Dose 2 MG; Start 01/28/17 at 14:00 Ondansetron HCl/ Dextrose (Zofran Inj/D5W) 54 ml @ 108 mls/hr Q6H PRN IV NAUSEA AND/OR VOMITING; Start 01/31/17 at 12:00 Hydromorphone HCl (Dilaudid) 1 mg Q2H PRN IV PAIN LEVEL 6-10 Last administered on 02/15/17 15:22; Admin Dose 1 MG; Start 02/02/17 at 11:30 Diphenhydramine HCl (Benadryl) 25 mg Q6H PRN IV ITCHING Last administered on 17:19; Admin Dose 25 MG; Start 02/02/17 at 11:30 Acetaminophen (Tylenol Liquid) 650 mg Q4H PRN GTB PAIN AND OR ELEVATED TEMP Last administered on 02/06/17 16:19; Admin Dose 650 MG; Start 02/04/17 at 08:30 ; Status Future Hold Docusate Sodium 100 mg 100 mg BID NGT Last administered on 02/14/17 20:49; Admin Dose 100 MG; Start 02/05/17 at 09:00 Fat Emulsion Intravenous 250 ml @ 10 mls/hr Q24H IV Last administered on 02/15 03:03; Admin Dose 10 MLS/HR; Start 02/05/17 at 20:00 Total Parenteral Nutrition (Tpn) 1,000 ml @ 70 mls/hr [id number] IV Last administered on 02/15/17 14:18; Admin Dose 70 MLS/HR; Start 02/05/17 at 20:00 Furosemide (Lasix) 20 mg DAILY IV Last administered on 02/13/17 09:33; Admin Dose 20 MG; Start 02/07/17 at 11:00; Status Future Hold Diagnostic Test (Pha) 1 ea 1 ea Q8 XX Last administered on 02/14/17 06:33; Admin Dose 1 EA; Start 02/07/17 at 22:00 Acetaminophen (Ofirmev 1000mg/ 100ml Iv) 100 ml @ 400 mls/hr Q6H PRN IVPB FEVER; Start 02/09/17 at 12:00 Lorazepam (Ativan) 1 mg Q2 PRN IV AGITATION Last administered on 02/14/17 14: 22; Admin Dose 1 MG; Start 02/10/17 at 12:30 Ondansetron HCl (Zofran Inj) 4 mg Q6H PRN IV NAUSEA AND/OR VOMITING; Start 01/20 at 14:30 BRITTANY ROJAS Feb 15, 2017 16:34
--- NOTE | 2017-02-15 19:53 | CONS ---
Date/Time of Note Date/Time of Note DATE: 02/15/17 TIME: 19:52 Assessment/Plan Assessment/Plan Chief Complaint/Hosp Course ADVANCED OVARIAN CANCER WITH MALIGNANT ASCITES AND PERITONEAL carcinomatosis Large conglomerate pelvic mass inseparable from the uterus, sigmoid colon and rectum containing clumps of calcification suspicious for calcified fibroids and containing cystic areas. Large amount of free intraperitoneal fluid measuring 25 HU with caking of the omentum compatible with carcinomatosis. Centralization of bowel without evidence of bowel obstruction. Moderately severe right hydronephrosis and hydroureter to the level of the pelvic mass. There is moderate left pelvocaliectasis without ureteral dilatation. The bladder is quite distended with urine. POST cystoscopy and insertion of bilateral JJ stents CT CHEST - EDOUARD, EXCEPT SMALL L PLEURAL EFFUSION CA 125- 337 POST debulking surgery PATH- [id number] High grade serous carcinoma. PLAN- CHEMO WHEN [facility]ARED BY [facility] IVC filter cancelled today and was rescheduled tomorrow ANEMIA, MICROCYTOSIS COMPLEX ANEMIA W-UP= + COMPONENT ACD DROP H/H POSTOP SERIAL H/H PRBC NEEDED PER STANDING ORDERS D/W RN LEUKOCYTOSIS REACTIVE, PARTIALLY 2 TO Splenectomy PELVIC ABSCESS- POST DRAINAGE malignant ascites sp para 10.19. hydro AUR from ascites, sp ureteral stenting. ILEUS NG TPN Problems: Consultation Date/Type/Reason Admit Date/Time Jan 22, 2017 at 14:12 Initial Consult Date 01/27/17 Type of Consultation: [facility] Referring Provider: DAYANARA BROWN MD 24 HR Interval Summary Free Text/Dictation ALL NOTED DOING BETTER Exam/Review of Systems Vital Signs Vitals Vital Signs Date Time Temp Pulse Resp B/P Pulse Ox O2 Delivery O2 Flow Rate FiO2 02/15/17 16:16 89 02/15/17 14:56 98.0 20 138/88 96 02/15/17 08:30 Nasal Cannula 3.0 Intake and Output 02/14/17 02/14/17 02/15/17 15:00 23:00 07:00 Intake Total 50 ml 960 ml 960 ml Output Total 120 ml 1375 ml 1375 ml Balance -70 ml -415 ml -415 ml Exam GENERAL: Chronically ill-appearing lady intermittent confusion VITAL SIGNS: per chart NECK: Supple. No JVD or lymphadenopathy. CARDIAC EXAM: S1, S2. No added sounds or murmurs. CHEST: Bilateral rales. ABDOMEN: Soft, nontender. No guarding or rebound. EXTREMITIES: No cyanosis, clubbing or edema. NEUROLOGIC: Generalized weakness. No focal deficits. Results Result Diagram: 02/15/17 0608 02/15/17 1404 Results 24 hrs Laboratory Tests Test 02/14/17 22:08 02/15/17 05:44 02/15/17 06:08 02/15/17 14:04 Bedside Glucose 102 90 White Blood Count 16.5 H Red Blood Count 3.00 L Hemoglobin 8.2 L Hematocrit 27.1 L Mean Corpuscular Volume 90.3 Mean Corpuscular Hemoglobin 27.3 L Mean Corpuscular Hemoglobin Concent 30.3 L Red Cell Distribution Width 18.9 H Platelet Count 732 H Mean Platelet Volume 12.6 H Neutrophils % 87.2 H Lymphocytes % 4.0 L Monocytes % 6.7 Eosinophils % 0.9 Basophils % 0.2 Nucleated Red Blood Cells % 0.2 H Neutrophils # 14.4 H Lymphocytes # 0.7 L Monocytes # 1.1 H Eosinophils # 0.1 Basophils # 0.0 Nucleated Red Blood Cells # 0.0 Prothrombin Time 13.0 Prothrombin Time Ratio 1.0 INR International Normalized Ratio 0.98 Sodium Level 145 H Potassium Level 3.7 Chloride Level 109 Carbon Dioxide Level 28 Anion Gap 12 Blood Urea Nitrogen 12 Creatinine 0.50 Glucose Level 105 Calcium Level 8.1 L Test 02/15/17 14:05 Bedside Glucose 102 Medications Medications Current Medications Acetaminophen (Tylenol Tab) 650 mg Q6H PRN PO PAIN LEVEL 1-3 OR FEVER Last administered on 02/06/17 23:54; Admin Dose 650 MG; Start 01/22/17 at 16:00; Status Future Hold Docusate Sodium (Colace) 100 mg Q12H PRN PO CONSTIPATION; Start 01/22/17 at 16 :00 Magnesium Hydroxide (Milk Of Mag) 30 ml DAILY PRN PO CONSTIPATION Last administered on 01/31/17 07:38; Admin Dose 30 ML; Start 01/22/17 at 16:00 Bisacodyl (Dulcolax) 5 mg DAILY PRN PO CONSTIPATION Last administered on 05:07; Admin Dose 5 MG; Start 01/22/17 at 16:00 Polyethylene Glycol (Miralax) 17 gm DAILY PO Last administered on 02/09/17 09: 00; Admin Dose 17 GM; Start 01/26/17 at 15:30 Sodium Biphosphate/ Sodium Phosphate (Fleet Enema) 133 ml DAILY PRN [place] CONSTIPATION Last administered on 01/27/17 06:17; Admin Dose 133 ML; Start at 20:30 Tolterodine Tartrate (Detrol La) 4 mg DAILY PO Last administered on 02/13/17 09:33; Admin Dose 4 MG; Start 01/27/17 at 15:30 Morphine Sulfate 2 mg 2 mg Q2H PRN IV PAIN LEVEL 7-10 Last administered on 02/12 08:59; Admin Dose 2 MG; Start 01/28/17 at 14:00 Ondansetron HCl/ Dextrose (Zofran Inj/D5W) 54 ml @ 108 mls/hr Q6H PRN IV NAUSEA AND/OR VOMITING; Start 01/31/17 at 12:00 Hydromorphone HCl (Dilaudid) 1 mg Q2H PRN IV PAIN LEVEL 6-10 Last administered on 02/15/17 15:22; Admin Dose 1 MG; Start 02/02/17 at 11:30 Diphenhydramine HCl (Benadryl) 25 mg Q6H PRN IV ITCHING Last administered on 17:19; Admin Dose 25 MG; Start 02/02/17 at 11:30 Acetaminophen (Tylenol Liquid) 650 mg Q4H PRN GTB PAIN AND OR ELEVATED TEMP Last administered on 02/06/17 16:19; Admin Dose 650 MG; Start 02/04/17 at 08:30 ; Status Future Hold Docusate Sodium 100 mg 100 mg BID NGT Last administered on 02/14/17 20:49; Admin Dose 100 MG; Start 02/05/17 at 09:00 Fat Emulsion Intravenous 250 ml @ 10 mls/hr Q24H IV Last administered on 02/15 03:03; Admin Dose 10 MLS/HR; Start 02/05/17 at 20:00 Total Parenteral Nutrition (Tpn) 1,000 ml @ 70 mls/hr [id number] IV Last administered on 02/15/17 14:18; Admin Dose 70 MLS/HR; Start 02/05/17 at 20:00 Furosemide (Lasix) 20 mg DAILY IV Last administered on 02/13/17 09:33; Admin Dose 20 MG; Start 02/07/17 at 11:00; Status Future Hold Diagnostic Test (Pha) 1 ea 1 ea Q8 XX Last administered on 02/14/17 06:33; Admin Dose 1 EA; Start 02/07/17 at 22:00 Acetaminophen (Ofirmev 1000mg/ 100ml Iv) 100 ml @ 400 mls/hr Q6H PRN IVPB FEVER; Start 02/09/17 at 12:00 Lorazepam (Ativan) 1 mg Q2 PRN IV AGITATION Last administered on 02/14/17 14: 22; Admin Dose 1 MG; Start 02/10/17 at 12:30 Ondansetron HCl (Zofran Inj) 4 mg Q6H PRN IV NAUSEA AND/OR VOMITING; Start 01/20 at 14:30 RAMIREZ YBARRA MD Feb 15, 2017 19:53
[2017-02-16] VITALS (13 sets, daily range): BP systolic 134–145; BP diastolic 74–90; PULSE 83–103; RESP 17–20
[2017-02-16] MEDS: HYDROmorphONE 0.5 MG/0.5 ML SYG IV PRN ×5 (00:34→20:53)
[2017-02-16] MEDS: FAT EMULSION 20% 250 ML IV SCH (05:00)
[2017-02-16] MEDS: ACCU-CHEK XX SCH ×3 (06:32→22:03)
[2017-02-16 07:03] LABS: BASOPHILS % 0.1 % (0.0-2.0); EOSINOPHILS # 0.1 10^3/ul (0.0-0.5); EOSINOPHILS % 0.8 % (0.0-7.0); HEMATOCRIT 27.7 % (37.0-47.0); HEMOGLOBIN 8.2 g/dl (12.0-16.0); LYMPHOCYTES # 0.6 10^3/ul (0.8-2.9); LYMPHOCYTES % 3.6 % (15.0-51.0); MEAN CORPUSCULAR HEMOGLOBIN 26.8 pg (29.0-33.0); MEAN CORPUSCULAR HGB CONC 29.6 g/dl (32.0-37.0); MEAN CORPUSCULAR VOLUME 90.5 fl (82.0-101.0); MEAN PLATELET VOLUME 12.6 fl (7.4-10.4); MONOCYTE # 1.1 10^3/ul (0.3-0.9); MONOCYTES % 6.7 % (0.0-11.0); NEUTROPHIL # 14.6 10^3/ul (1.6-7.5); NEUTROPHILS % 87.8 % (39.0-77.0); NUCLEATED RED BLOOD CELLS% 0.2 /100WBC (0.0-0.0); PLATELET COUNT 441 10^3/UL (140-415); RED BLOOD COUNT 3.06 10^6/ul (4.20-5.40); RED CELL DISTRIBUTION WIDTH 19.1 % (11.5-14.5); WHITE BLOOD COUNT 16.6 10^3/ul (4.8-10.8)
[2017-02-16 07:23] LABS: CALCIUM 8.2 mg/dl (8.4-10.2); CREATININE 0.44 mg/dl (0.44-1.00); MAGNESIUM 1.9 mg/dl (1.7-2.5); PHOSPHORUS 3.4 mg/dl (2.5-4.9); POTASSIUM 3.8 mmol/L (3.5-5.1)
[2017-02-16] MEDS: POLYETHYLENE GLYCOL 17 GM PACKET PO SCH (08:51)
[2017-02-16] MEDS: DOCUSATE SODIUM 10 MG/ML (10ML CUP) NGT SCH ×2 (08:51→20:52)
[2017-02-16] MEDS: TOLTERODINE (SR) 4 MG CAP PO SCH (08:53)
[2017-02-16] MEDS: morphine 2 MG INJ IV PRN (08:57)
--- NOTE | 2017-02-16 13:03 | CONS ---
Date/Time of Note Date/Time of Note DATE: 02/16/17 TIME: 13:02 Consult Date/Type/Reason Admit Date/Time Jan 22, 2017 at 14:12 Initial Consult Date 02/03/17 Type of Consultation: ID Ordering Provider: DAYANARA BROWN MD Objective Vital Signs Date Time Temp Pulse Resp B/P Pulse Ox O2 Delivery O2 Flow Rate FiO2 02/16/17 12:13 96 02/16/17 11:44 98.2 18 145/85 95 02/16/17 02:51 2.0 27 02/15/17 08:30 Nasal Cannula Intake and Output 02/15/17 02/15/17 02/16/17 15:00 23:00 07:00 Intake Total 160 ml 650 ml 520 ml Output Total 120 ml 1400 ml 1330 ml Balance 40 ml -750 ml -810 ml Results/Medications Result Diagram: 02/16/17 0640 02/16/17 0640 Results 24 hrs Laboratory Tests Test 02/15/17 14:04 02/15/17 14:05 02/15/17 22:42 02/16/17 06:12 Sodium Level 145 H Potassium Level 3.7 Chloride Level 109 Carbon Dioxide Level 28 Anion Gap 12 Blood Urea Nitrogen 12 Creatinine 0.50 Glucose Level 105 Calcium Level 8.1 L Bedside Glucose 102 100 99 Test 02/16/17 06:40 White Blood Count 16.6 H Red Blood Count 3.06 L Hemoglobin 8.2 L Hematocrit 27.7 L Mean Corpuscular Volume 90.5 Mean Corpuscular Hemoglobin 26.8 L Mean Corpuscular Hemoglobin Concent 29.6 L Red Cell Distribution Width 19.1 H Platelet Count 441 #H Mean Platelet Volume 12.6 H Neutrophils % 87.8 H Lymphocytes % 3.6 L Monocytes % 6.7 Eosinophils % 0.8 Basophils % 0.1 Nucleated Red Blood Cells % 0.2 H Neutrophils # 14.6 H Lymphocytes # 0.6 L Monocytes # 1.1 H Eosinophils # 0.1 Basophils # 0.0 Nucleated Red Blood Cells # 0.0 Sodium Level 144 Potassium Level 3.8 Chloride Level 109 Carbon Dioxide Level 27 Anion Gap 12 Blood Urea Nitrogen 12 Creatinine 0.44 Glucose Level 98 Calcium Level 8.2 L Phosphorus Level 3.4 Magnesium Level 1.9 Medications Current Medications Acetaminophen (Tylenol Tab) 650 mg Q6H PRN PO PAIN LEVEL 1-3 OR FEVER Last administered on 02/06/17 23:54; Admin Dose 650 MG; Start 01/22/17 at 16:00; Status Future Hold Docusate Sodium (Colace) 100 mg Q12H PRN PO CONSTIPATION; Start 01/22/17 at 16 :00 Magnesium Hydroxide (Milk Of Mag) 30 ml DAILY PRN PO CONSTIPATION Last administered on 01/31/17 07:38; Admin Dose 30 ML; Start 01/22/17 at 16:00 Bisacodyl (Dulcolax) 5 mg DAILY PRN PO CONSTIPATION Last administered on 05:07; Admin Dose 5 MG; Start 01/22/17 at 16:00 Polyethylene Glycol (Miralax) 17 gm DAILY PO Last administered on 02/09/17 09: 00; Admin Dose 17 GM; Start 01/26/17 at 15:30 Sodium Biphosphate/ Sodium Phosphate (Fleet Enema) 133 ml DAILY PRN [place] CONSTIPATION Last administered on 01/27/17 06:17; Admin Dose 133 ML; Start at 20:30 Tolterodine Tartrate (Detrol La) 4 mg DAILY PO Last administered on 02/13/17 09:33; Admin Dose 4 MG; Start 01/27/17 at 15:30 Morphine Sulfate 2 mg 2 mg Q2H PRN IV PAIN LEVEL 7-10 Last administered on 08:57; Admin Dose 2 MG; Start 01/28/17 at 14:00 Ondansetron HCl/ Dextrose (Zofran Inj/D5W) 54 ml @ 108 mls/hr Q6H PRN IV NAUSEA AND/OR VOMITING; Start 01/31/17 at 12:00 Hydromorphone HCl (Dilaudid) 1 mg Q2H PRN IV PAIN LEVEL 6-10 Last administered on 02/16/17 11:36; Admin Dose 1 MG; Start 02/02/17 at 11:30 Diphenhydramine HCl (Benadryl) 25 mg Q6H PRN IV ITCHING Last administered on 17:19; Admin Dose 25 MG; Start 02/02/17 at 11:30 Acetaminophen (Tylenol Liquid) 650 mg Q4H PRN GTB PAIN AND OR ELEVATED TEMP Last administered on 02/06/17 16:19; Admin Dose 650 MG; Start 02/04/17 at 08:30 ; Status Future Hold Docusate Sodium 100 mg 100 mg BID NGT Last administered on 02/14/17 20:49; Admin Dose 100 MG; Start 02/05/17 at 09:00 Fat Emulsion Intravenous 250 ml @ 10 mls/hr Q24H IV Last administered on 02/16 05:00; Admin Dose 10 MLS/HR; Start 02/05/17 at 20:00 Total Parenteral Nutrition (Tpn) 1,000 ml @ 70 mls/hr [id number] IV Last administered on 02/15/17 22:55; Admin Dose 70 MLS/HR; Start 02/05/17 at 20:00 Furosemide (Lasix) 20 mg DAILY IV Last administered on 02/13/17 09:33; Admin Dose 20 MG; Start 02/07/17 at 11:00; Status Future Hold Diagnostic Test (Pha) 1 ea 1 ea Q8 XX Last administered on 02/16/17 06:32; Admin Dose 1 EA; Start 02/07/17 at 22:00 Acetaminophen (Ofirmev 1000mg/ 100ml Iv) 100 ml @ 400 mls/hr Q6H PRN IVPB FEVER; Start 02/09/17 at 12:00 Lorazepam (Ativan) 1 mg Q2 PRN IV AGITATION Last administered on 02/14/17 14: 22; Admin Dose 1 MG; Start 02/10/17 at 12:30 Ondansetron HCl (Zofran Inj) 4 mg Q6H PRN IV NAUSEA AND/OR VOMITING; Start 01/20 at 14:30 Assessment/Plan Chief Complaint/Hosp Course SUBJECTIVE: No events overnight. Patient is awake, looks comfortable, no fevers ANTIMICROBIALS: none INDWELLINGS: Triple lumen catheter JPs, Cullen catheter, R abd pigtail. PHYSICAL EXAMINATION: GENERAL: This is a wasted, chronically ill-appearing, 56-year-old woman who is awake, in no distress. HEENT: Head atraumatic, normocephalic. Sclerae icteric. Buccal mucosa dry. NECK: Supple. CHEST: Rise symmetrical. Breath sounds diminished at bases. HEART: S1, S2. ABDOMEN: Soft, bowel tones present, incision clean. EXTREMITIES: With trace edema. ASSESSMENT: 1. Systemic inflammatory response syndrome with persistent leukocytosis. 2. S/p CT-guided drainage of intraabdominal abscess on 02/10/17. 3. Bilateral pulmonary emboli, s/p IVC filter. 4. Metastatic ovarian cancer, status post tumor debulking on 02/02/2017. 5. Bilateral hydronephrosis, status post JJ stent placement on 01/24/2017. 6. Status post alpha hemolytic streptococci urinary tract infection. 7. Cachexia. 8. Encephalopathy. PLAN: Remains stable, off abx, NGT dc'd, continue present care, repeat cx's prn [facility] staff Problems: CARLOS SOLIZ NP Feb 16, 2017 13:03
--- NOTE | 2017-02-16 13:26 | CONS ---
Date/Time of Note Date/Time of Note DATE: 02/16/17 TIME: 13:24 Consult Date/Type/Reason Admit Date/Time Jan 22, 2017 at 14:12 Initial Consult Date 01/23/17 Type of Consultation: Urology Reason for Consultation Bilateral hydronephrosis Ordering Provider: DAYANARA BROWN MD Subjective Patient appears very weak and sick Objective Vital Signs Date Time Temp Pulse Resp B/P Pulse Ox O2 Delivery O2 Flow Rate FiO2 02/16/17 12:13 96 02/16/17 11:44 98.2 18 145/85 95 02/16/17 02:51 2.0 27 02/15/17 08:30 Nasal Cannula Intake and Output 02/15/17 02/15/17 02/16/17 15:00 23:00 07:00 Intake Total 160 ml 650 ml 520 ml Output Total 120 ml 1400 ml 1330 ml Balance 40 ml -750 ml -810 ml Results/Medications Result Diagram: 02/16/17 0640 02/16/17 0640 Results 24 hrs Laboratory Tests Test 02/15/17 14:04 02/15/17 14:05 02/15/17 22:42 02/16/17 06:12 Sodium Level 145 H Potassium Level 3.7 Chloride Level 109 Carbon Dioxide Level 28 Anion Gap 12 Blood Urea Nitrogen 12 Creatinine 0.50 Glucose Level 105 Calcium Level 8.1 L Bedside Glucose 102 100 99 Test 02/16/17 06:40 White Blood Count 16.6 H Red Blood Count 3.06 L Hemoglobin 8.2 L Hematocrit 27.7 L Mean Corpuscular Volume 90.5 Mean Corpuscular Hemoglobin 26.8 L Mean Corpuscular Hemoglobin Concent 29.6 L Red Cell Distribution Width 19.1 H Platelet Count 441 #H Mean Platelet Volume 12.6 H Neutrophils % 87.8 H Lymphocytes % 3.6 L Monocytes % 6.7 Eosinophils % 0.8 Basophils % 0.1 Nucleated Red Blood Cells % 0.2 H Neutrophils # 14.6 H Lymphocytes # 0.6 L Monocytes # 1.1 H Eosinophils # 0.1 Basophils # 0.0 Nucleated Red Blood Cells # 0.0 Sodium Level 144 Potassium Level 3.8 Chloride Level 109 Carbon Dioxide Level 27 Anion Gap 12 Blood Urea Nitrogen 12 Creatinine 0.44 Glucose Level 98 Calcium Level 8.2 L Phosphorus Level 3.4 Magnesium Level 1.9 Medications Current Medications Acetaminophen (Tylenol Tab) 650 mg Q6H PRN PO PAIN LEVEL 1-3 OR FEVER Last administered on 02/06/17 23:54; Admin Dose 650 MG; Start 01/22/17 at 16:00; Status Future Hold Docusate Sodium (Colace) 100 mg Q12H PRN PO CONSTIPATION; Start 01/22/17 at 16 :00 Magnesium Hydroxide (Milk Of Mag) 30 ml DAILY PRN PO CONSTIPATION Last administered on 01/31/17 07:38; Admin Dose 30 ML; Start 01/22/17 at 16:00 Bisacodyl (Dulcolax) 5 mg DAILY PRN PO CONSTIPATION Last administered on 05:07; Admin Dose 5 MG; Start 01/22/17 at 16:00 Polyethylene Glycol (Miralax) 17 gm DAILY PO Last administered on 02/09/17 09: 00; Admin Dose 17 GM; Start 01/26/17 at 15:30 Sodium Biphosphate/ Sodium Phosphate (Fleet Enema) 133 ml DAILY PRN [place] CONSTIPATION Last administered on 01/27/17 06:17; Admin Dose 133 ML; Start at 20:30 Tolterodine Tartrate (Detrol La) 4 mg DAILY PO Last administered on 02/13/17 09:33; Admin Dose 4 MG; Start 01/27/17 at 15:30 Morphine Sulfate 2 mg 2 mg Q2H PRN IV PAIN LEVEL 7-10 Last administered on 08:57; Admin Dose 2 MG; Start 01/28/17 at 14:00 Ondansetron HCl/ Dextrose (Zofran Inj/D5W) 54 ml @ 108 mls/hr Q6H PRN IV NAUSEA AND/OR VOMITING; Start 01/31/17 at 12:00 Hydromorphone HCl (Dilaudid) 1 mg Q2H PRN IV PAIN LEVEL 6-10 Last administered on 02/16/17 11:36; Admin Dose 1 MG; Start 02/02/17 at 11:30 Diphenhydramine HCl (Benadryl) 25 mg Q6H PRN IV ITCHING Last administered on 17:19; Admin Dose 25 MG; Start 02/02/17 at 11:30 Acetaminophen (Tylenol Liquid) 650 mg Q4H PRN GTB PAIN AND OR ELEVATED TEMP Last administered on 02/06/17 16:19; Admin Dose 650 MG; Start 02/04/17 at 08:30 ; Status Future Hold Docusate Sodium 100 mg 100 mg BID NGT Last administered on 02/14/17 20:49; Admin Dose 100 MG; Start 02/05/17 at 09:00 Fat Emulsion Intravenous 250 ml @ 10 mls/hr Q24H IV Last administered on 02/16 05:00; Admin Dose 10 MLS/HR; Start 02/05/17 at 20:00 Total Parenteral Nutrition (Tpn) 1,000 ml @ 70 mls/hr [id number] IV Last administered on 02/15/17 22:55; Admin Dose 70 MLS/HR; Start 02/05/17 at 20:00 Furosemide (Lasix) 20 mg DAILY IV Last administered on 02/13/17 09:33; Admin Dose 20 MG; Start 02/07/17 at 11:00; Status Future Hold Diagnostic Test (Pha) 1 ea 1 ea Q8 XX Last administered on 02/16/17 06:32; Admin Dose 1 EA; Start 02/07/17 at 22:00 Acetaminophen (Ofirmev 1000mg/ 100ml Iv) 100 ml @ 400 mls/hr Q6H PRN IVPB FEVER; Start 02/09/17 at 12:00 Lorazepam (Ativan) 1 mg Q2 PRN IV AGITATION Last administered on 02/14/17 14: 22; Admin Dose 1 MG; Start 02/10/17 at 12:30 Ondansetron HCl (Zofran Inj) 4 mg Q6H PRN IV NAUSEA AND/OR VOMITING; Start 01/20 at 14:30 Assessment/Plan Chief Complaint/Hosp Course 56-year-old female with stage IV ovarian cancer presented to the hospital with abdominal pain. CT scan of the abdomen and pelvis showed bilateral hydronephrosis more severe on the right side. The patient underwent paracentesis and 4 Liters were drained and sent for cytology. The pathology report came out as ovarian cancer. the patient underwent cystoscopy and insertion of bilateral JJ stents . The patient had debulking of the tumor by Dr. Ramirez. From a urological standpoint at the present she does have the bilateral JJ stents and her renal function is stable. If she gets better and respond to treatment then later on in the future she will need the stents removed and may be replaced Problems: EMILIE ALBERT MD Feb 16, 2017 13:26
[2017-02-16] MEDS: TPN 1,000 ML IV SCH (13:46)
--- NOTE | 2017-02-16 15:06 | CONS ---
Date/Time of Note Date/Time of Note DATE: 02/16/17 TIME: 15:01 Assessment/Plan Assessment/Plan Chief Complaint/Hosp Course ADVANCED OVARIAN CANCER WITH MALIGNANT ASCITES AND PERITONEAL carcinomatosis Large conglomerate pelvic mass inseparable from the uterus, sigmoid colon and rectum containing clumps of calcification suspicious for calcified fibroids and containing cystic areas. Large amount of free intraperitoneal fluid measuring 25 HU with caking of the omentum compatible with carcinomatosis. Centralization of bowel without evidence of bowel obstruction. Moderately severe right hydronephrosis and hydroureter to the level of the pelvic mass. There is moderate left pelvocaliectasis without ureteral dilatation. The bladder is quite distended with urine. POST cystoscopy and insertion of bilateral JJ stents. PER DR ABRAMS-If she gets better and respond to treatment then later on in the future she will need the stents removed and may be replaced CT CHEST - EDOUARD, EXCEPT SMALL L PLEURAL EFFUSION CA 125- 337 POST debulking surgery PATH- [id number] High grade serous carcinoma. PLAN- CHEMO WHEN CLEARED BY GYNEONC IVC filter ANEMIA, MICROCYTOSIS COMPLEX ANEMIA W-UP= + COMPONENT ACD DROP H/H POSTOP SERIAL H/H PRBC NEEDED PER STANDING ORDERS D/W RN LEUKOCYTOSIS REACTIVE, PARTIALLY 2 TO Splenectomy, partially 2 to infection PELVIC ABSCESS- POST DRAINAGE malignant ascites sp para 10.19. hydro AUR from ascites, sp ureteral stenting. ILEUS NG TPN Problems: Consultation Date/Type/Reason Admit Date/Time Jan 22, 2017 at 14:12 Initial Consult Date 01/27/17 Type of Consultation: [facility] Referring Provider: DAYANARA BROWN MD 24 HR Interval Summary Free Text/Dictation ALL NOTED DEPRESSED NONCOMPLIANT Exam/Review of Systems Vital Signs Vitals Vital Signs Date Time Temp Pulse Resp B/P Pulse Ox O2 Delivery O2 Flow Rate FiO2 02/16/17 12:13 96 02/16/17 11:44 98.2 18 145/85 95 02/16/17 02:51 2.0 27 02/15/17 08:30 Nasal Cannula Intake and Output 02/15/17 02/15/17 02/16/17 14:59 22:59 06:59 Intake Total 160 ml 650 ml 520 ml Output Total 120 ml 1400 ml 1300 ml Balance 40 ml -750 ml -780 ml Exam GENERAL: Chronically ill-appearing lady intermittent confusion VITAL SIGNS: per chart NECK: Supple. No JVD or lymphadenopathy. CARDIAC EXAM: S1, S2. No added sounds or murmurs. CHEST: Bilateral rales. ABDOMEN: Soft, nontender. No guarding or rebound. EXTREMITIES: No cyanosis, clubbing or edema. NEUROLOGIC: Generalized weakness. No focal deficits. Results Result Diagram: 02/16/17 0640 02/16/17 0640 Results 24 hrs Laboratory Tests Test 02/15/17 22:42 02/16/17 06:12 02/16/17 06:40 Bedside Glucose 100 99 White Blood Count 16.6 H Red Blood Count 3.06 L Hemoglobin 8.2 L Hematocrit 27.7 L Mean Corpuscular Volume 90.5 Mean Corpuscular Hemoglobin 26.8 L Mean Corpuscular Hemoglobin Concent 29.6 L Red Cell Distribution Width 19.1 H Platelet Count 441 #H Mean Platelet Volume 12.6 H Neutrophils % 87.8 H Lymphocytes % 3.6 L Monocytes % 6.7 Eosinophils % 0.8 Basophils % 0.1 Nucleated Red Blood Cells % 0.2 H Neutrophils # 14.6 H Lymphocytes # 0.6 L Monocytes # 1.1 H Eosinophils # 0.1 Basophils # 0.0 Nucleated Red Blood Cells # 0.0 Sodium Level 144 Potassium Level 3.8 Chloride Level 109 Carbon Dioxide Level 27 Anion Gap 12 Blood Urea Nitrogen 12 Creatinine 0.44 Glucose Level 98 Calcium Level 8.2 L Phosphorus Level 3.4 Magnesium Level 1.9 Medications Medications Current Medications Acetaminophen (Tylenol Tab) 650 mg Q6H PRN PO PAIN LEVEL 1-3 OR FEVER Last administered on 02/06/17 23:54; Admin Dose 650 MG; Start 01/22/17 at 16:00; Status Future Hold Docusate Sodium (Colace) 100 mg Q12H PRN PO CONSTIPATION; Start 01/22/17 at 16 :00 Magnesium Hydroxide (Milk Of Mag) 30 ml DAILY PRN PO CONSTIPATION Last administered on 01/31/17 07:38; Admin Dose 30 ML; Start 01/22/17 at 16:00 Bisacodyl (Dulcolax) 5 mg DAILY PRN PO CONSTIPATION Last administered on 05:07; Admin Dose 5 MG; Start 01/22/17 at 16:00 Polyethylene Glycol (Miralax) 17 gm DAILY PO Last administered on 02/09/17 09: 00; Admin Dose 17 GM; Start 01/26/17 at 15:30 Sodium Biphosphate/ Sodium Phosphate (Fleet Enema) 133 ml DAILY PRN [place] CONSTIPATION Last administered on 01/27/17 06:17; Admin Dose 133 ML; Start at 20:30 Tolterodine Tartrate (Detrol La) 4 mg DAILY PO Last administered on 02/13/17 09:33; Admin Dose 4 MG; Start 01/27/17 at 15:30 Morphine Sulfate 2 mg 2 mg Q2H PRN IV PAIN LEVEL 7-10 Last administered on 08:57; Admin Dose 2 MG; Start 01/28/17 at 14:00 Ondansetron HCl/ Dextrose (Zofran Inj/D5W) 54 ml @ 108 mls/hr Q6H PRN IV NAUSEA AND/OR VOMITING; Start 01/31/17 at 12:00 Hydromorphone HCl (Dilaudid) 1 mg Q2H PRN IV PAIN LEVEL 6-10 Last administered on 02/16/17 11:36; Admin Dose 1 MG; Start 02/02/17 at 11:30 Diphenhydramine HCl (Benadryl) 25 mg Q6H PRN IV ITCHING Last administered on 17:19; Admin Dose 25 MG; Start 02/02/17 at 11:30 Acetaminophen (Tylenol Liquid) 650 mg Q4H PRN GTB PAIN AND OR ELEVATED TEMP Last administered on 02/06/17 16:19; Admin Dose 650 MG; Start 02/04/17 at 08:30 ; Status Future Hold Docusate Sodium 100 mg 100 mg BID NGT Last administered on 02/14/17 20:49; Admin Dose 100 MG; Start 02/05/17 at 09:00 Fat Emulsion Intravenous 250 ml @ 10 mls/hr Q24H IV Last administered on 02/16 05:00; Admin Dose 10 MLS/HR; Start 02/05/17 at 20:00 Total Parenteral Nutrition (Tpn) 1,000 ml @ 70 mls/hr [id number] IV Last administered on 02/16/17 13:46; Admin Dose 70 MLS/HR; Start 02/05/17 at 20:00 Furosemide (Lasix) 20 mg DAILY IV Last administered on 02/13/17 09:33; Admin Dose 20 MG; Start 02/07/17 at 11:00; Status Future Hold Diagnostic Test (Pha) 1 ea 1 ea Q8 XX Last administered on 02/16/17 06:32; Admin Dose 1 EA; Start 02/07/17 at 22:00 Acetaminophen (Ofirmev 1000mg/ 100ml Iv) 100 ml @ 400 mls/hr Q6H PRN IVPB FEVER; Start 02/09/17 at 12:00 Lorazepam (Ativan) 1 mg Q2 PRN IV AGITATION Last administered on 02/14/17 14: 22; Admin Dose 1 MG; Start 02/10/17 at 12:30 Ondansetron HCl (Zofran Inj) 4 mg Q6H PRN IV NAUSEA AND/OR VOMITING; Start 01/20 at 14:30 RAMIREZ YBARRA MD Feb 16, 2017 15:06
--- NOTE | 2017-02-16 21:53 | PN ---
Date/Time of Note Date/Time of Note DATE: 02/16/17 TIME: 21:49 Assessment/Plan VTE Prophylaxis VTE Prophylaxis Intervention: heparin Lines/Catheters IV Catheter Type (from Nrs): Central Line Central line still needed: Yes Urinary Cath still in place: Yes Reason Cath still needed: other (indicate) Assessment/Plan Chief Complaint/Hosp Course Stage IIIc - IV ovarian cancer Problems: Assessment/Plan A- gradual improving P- probably adv diet tomorrow Subjective 24 Hr Interval Summary Free Text/Dictation minimally more alert and conversive. No n.v. Exam/Review of Systems Vital Signs Vitals Vital Signs Date Time Temp Pulse Resp B/P Pulse Ox O2 Delivery O2 Flow Rate FiO2 02/16/17 20:30 98.0 81 20 135/74 97 02/16/17 18:47 2.0 02/16/17 02:51 27 02/15/17 08:30 Nasal Cannula Intake and Output 02/15/17 02/15/17 02/16/17 15:00 23:00 07:00 Intake Total 160 ml 650 ml 520 ml Output Total 120 ml 1400 ml 1330 ml Balance 40 ml -750 ml -810 ml Exam Resp- more clear CVS- NSR Abd- distended vs massive fluid prior removed Ext- mild edema Results Result Diagram: 02/16/17 0640 02/16/17 0640 Results 24 hrs Laboratory Tests Test 02/15/17 22:42 02/16/17 06:12 02/16/17 06:40 Bedside Glucose 100 99 White Blood Count 16.6 H Red Blood Count 3.06 L Hemoglobin 8.2 L Hematocrit 27.7 L Mean Corpuscular Volume 90.5 Mean Corpuscular Hemoglobin 26.8 L Mean Corpuscular Hemoglobin Concent 29.6 L Red Cell Distribution Width 19.1 H Platelet Count 441 #H Mean Platelet Volume 12.6 H Neutrophils % 87.8 H Lymphocytes % 3.6 L Monocytes % 6.7 Eosinophils % 0.8 Basophils % 0.1 Nucleated Red Blood Cells % 0.2 H Neutrophils # 14.6 H Lymphocytes # 0.6 L Monocytes # 1.1 H Eosinophils # 0.1 Basophils # 0.0 Nucleated Red Blood Cells # 0.0 Sodium Level 144 Potassium Level 3.8 Chloride Level 109 Carbon Dioxide Level 27 Anion Gap 12 Blood Urea Nitrogen 12 Creatinine 0.44 Glucose Level 98 Calcium Level 8.2 L Phosphorus Level 3.4 Magnesium Level 1.9 Medications Medications Current Medications Acetaminophen (Tylenol Tab) 650 mg Q6H PRN PO PAIN LEVEL 1-3 OR FEVER Last administered on 02/06/17 23:54; Admin Dose 650 MG; Start 01/22/17 at 16:00; Status Future Hold Docusate Sodium (Colace) 100 mg Q12H PRN PO CONSTIPATION; Start 01/22/17 at 16 :00 Magnesium Hydroxide (Milk Of Mag) 30 ml DAILY PRN PO CONSTIPATION Last administered on 01/31/17 07:38; Admin Dose 30 ML; Start 01/22/17 at 16:00 Bisacodyl (Dulcolax) 5 mg DAILY PRN PO CONSTIPATION Last administered on 05:07; Admin Dose 5 MG; Start 01/22/17 at 16:00 Polyethylene Glycol (Miralax) 17 gm DAILY PO Last administered on 02/09/17 09: 00; Admin Dose 17 GM; Start 01/26/17 at 15:30 Sodium Biphosphate/ Sodium Phosphate (Fleet Enema) 133 ml DAILY PRN [place] CONSTIPATION Last administered on 01/27/17 06:17; Admin Dose 133 ML; Start at 20:30 Tolterodine Tartrate (Detrol La) 4 mg DAILY PO Last administered on 02/13/17 09:33; Admin Dose 4 MG; Start 01/27/17 at 15:30 Morphine Sulfate 2 mg 2 mg Q2H PRN IV PAIN LEVEL 7-10 Last administered on 08:57; Admin Dose 2 MG; Start 01/28/17 at 14:00 Ondansetron HCl/ Dextrose (Zofran Inj/D5W) 54 ml @ 108 mls/hr Q6H PRN IV NAUSEA AND/OR VOMITING; Start 01/31/17 at 12:00 Hydromorphone HCl (Dilaudid) 1 mg Q2H PRN IV PAIN LEVEL 6-10 Last administered on 02/16/17 20:53; Admin Dose 1 MG; Start 02/02/17 at 11:30 Diphenhydramine HCl (Benadryl) 25 mg Q6H PRN IV ITCHING Last administered on 17:19; Admin Dose 25 MG; Start 02/02/17 at 11:30 Acetaminophen (Tylenol Liquid) 650 mg Q4H PRN GTB PAIN AND OR ELEVATED TEMP Last administered on 02/06/17 16:19; Admin Dose 650 MG; Start 02/04/17 at 08:30 ; Status Future Hold Docusate Sodium 100 mg 100 mg BID NGT Last administered on 02/14/17 20:49; Admin Dose 100 MG; Start 02/05/17 at 09:00 Fat Emulsion Intravenous 250 ml @ 10 mls/hr Q24H IV Last administered on 02/16 05:00; Admin Dose 10 MLS/HR; Start 02/05/17 at 20:00 Total Parenteral Nutrition (Tpn) 1,000 ml @ 70 mls/hr [id number] IV Last administered on 02/16/17 13:46; Admin Dose 70 MLS/HR; Start 02/05/17 at 20:00 Furosemide (Lasix) 20 mg DAILY IV Last administered on 02/13/17 09:33; Admin Dose 20 MG; Start 02/07/17 at 11:00; Status Future Hold Diagnostic Test (Pha) 1 ea 1 ea Q8 XX Last administered on 02/16/17 06:32; Admin Dose 1 EA; Start 02/07/17 at 22:00 Acetaminophen (Ofirmev 1000mg/ 100ml Iv) 100 ml @ 400 mls/hr Q6H PRN IVPB FEVER; Start 02/09/17 at 12:00 Lorazepam (Ativan) 1 mg Q2 PRN IV AGITATION Last administered on 02/14/17 14: 22; Admin Dose 1 MG; Start 02/10/17 at 12:30 Ondansetron HCl (Zofran Inj) 4 mg Q6H PRN IV NAUSEA AND/OR VOMITING; Start 01/20 at 14:30 RAUL EUCEDA MD Feb 16, 2017 21:53
[2017-02-17] VITALS (12 sets, daily range): BP systolic 134–154; BP diastolic 66–82; PULSE 77–100; RESP 18–20
[2017-02-17] MEDS: HYDROmorphONE 0.5 MG/0.5 ML SYG IV PRN ×4 (02:41→17:01)
[2017-02-17] MEDS: LORAZEPAM 2 MG INJ IV PRN (02:42)
[2017-02-17] MEDS: TPN 1,000 ML IV SCH ×2 (04:00→18:48)
[2017-02-17] MEDS: ACCU-CHEK XX SCH ×3 (06:35→22:36)
[2017-02-17 08:15] LABS: ABNORMAL IP MESSAGE 1; BASOPHILS % 0.2 % (0.0-2.0); EOSINOPHILS # 0.2 10^3/ul (0.0-0.5); EOSINOPHILS % 1.4 % (0.0-7.0); HEMATOCRIT 29.3 % (37.0-47.0); HEMOGLOBIN 8.7 g/dl (12.0-16.0); LYMPHOCYTES # 0.7 10^3/ul (0.8-2.9); LYMPHOCYTES % 4.3 % (15.0-51.0); MEAN CORPUSCULAR HEMOGLOBIN 26.9 pg (29.0-33.0); MEAN CORPUSCULAR HGB CONC 29.7 g/dl (32.0-37.0); MEAN CORPUSCULAR VOLUME 90.7 fl (82.0-101.0); MEAN PLATELET VOLUME 13.1 fl (7.4-10.4); MONOCYTE # 1.2 10^3/ul (0.3-0.9); MONOCYTES % 7.1 % (0.0-11.0); NEUTROPHIL # 14.2 10^3/ul (1.6-7.5); NEUTROPHILS % 85.9 % (39.0-77.0); NUCLEATED RED BLOOD CELLS% 0.1 /100WBC (0.0-0.0); PLATELET COUNT 575 10^3/UL (140-415); RED BLOOD COUNT 3.23 10^6/ul (4.20-5.40); RED CELL DISTRIBUTION WIDTH 19.5 % (11.5-14.5); WHITE BLOOD COUNT 16.5 10^3/ul (4.8-10.8)
[2017-02-17 08:23] LABS: POSITIVE DIFF @See below
[2017-02-17 08:34] LABS: CALCIUM 8.4 mg/dl (8.4-10.2); CREATININE 0.43 mg/dl (0.44-1.00); POTASSIUM 4.2 mmol/L (3.5-5.1)
[2017-02-17] MEDS: DOCUSATE SODIUM 10 MG/ML (10ML CUP) NGT SCH ×2 (08:54→21:00)
[2017-02-17] MEDS: TOLTERODINE (SR) 4 MG CAP PO SCH (08:54)
[2017-02-17] MEDS: POLYETHYLENE GLYCOL 17 GM PACKET PO SCH (08:55)
--- NOTE | 2017-02-17 11:09 | CONS ---
Date/Time of Note Date/Time of Note DATE: 02/17/17 TIME: 11:07 Assessment/Plan Assessment/Plan Additional Assessment/Plan Assessment and recommendations; 1. Patient admitted with abnormal pain underwent laparotomy with discovery of stage IV ovarian cancer. 2. Status post respiratory failure with sepsis and pneumonia, clinically markedly improved. 3. Bilateral pulmonary emboli. 4. Generalized deconditioning. Continue current treatment. Consider transfer to rehab. Consultation Date/Type/Reason Admit Date/Time Jan 22, 2017 at 14:12 Initial Consult Date 02/03/17 Type of Consultation: Pulmonary Referring Provider: DAYANARA BROWN MD 24 HR Interval Summary Free Text/Dictation Patient's condition is stable. Denies any shortness of breath, nausea, vomiting. Denies any abdominal pain. General exam; middle-aged woman, awake and alert. Currently in no distress. Exam/Review of Systems Vital Signs Vitals Vital Signs Date Time Temp Pulse Resp B/P Pulse Ox O2 Delivery O2 Flow Rate FiO2 02/17/17 08:09 100 02/17/17 07:34 97.8 18 139/82 94 02/17/17 07:09 2.0 02/16/17 02:51 27 02/15/17 08:30 Nasal Cannula Intake and Output 02/16/17 02/16/17 02/17/17 14:59 22:59 06:59 Intake Total 1000 ml Output Total 30 ml 1180 ml Balance -30 ml -1180 ml 1000 ml Exam HEENT exam; supple neck, no JVD. No lymphadenopathy. Midline trachea. No thyromegaly. She has fair dentition. Chest exam; clear to auscultation. S1-S2 audible, no murmurs. Regular rhythm. Abdomen exam; soft, midline dressing in place. No organomegaly. Nontender. Bowel sounds audible. Extremity exam; no peripheral edema. CO DIRECTOR exam; no focal deficit. Results Result Diagram: 02/17/17 0713 02/17/17 0713 Results 24 hrs Laboratory Tests Test 02/16/17 22:02 02/17/17 06:29 02/17/17 07:13 Bedside Glucose 97 92 White Blood Count 16.5 H Red Blood Count 3.23 L Hemoglobin 8.7 L Hematocrit 29.3 L Mean Corpuscular Volume 90.7 Mean Corpuscular Hemoglobin 26.9 L Mean Corpuscular Hemoglobin Concent 29.7 L Red Cell Distribution Width 19.5 H Platelet Count 575 #H Mean Platelet Volume 13.1 H Neutrophils % 85.9 H Lymphocytes % 4.3 L Monocytes % 7.1 Eosinophils % 1.4 Basophils % 0.2 Nucleated Red Blood Cells % 0.1 H Neutrophils # 14.2 H Lymphocytes # 0.7 L Monocytes # 1.2 H Eosinophils # 0.2 Basophils # 0.0 Nucleated Red Blood Cells # 0.0 Sodium Level 142 Potassium Level 4.2 Chloride Level 108 Carbon Dioxide Level 26 Anion Gap 12 Blood Urea Nitrogen 12 Creatinine 0.43 L Glucose Level 91 Calcium Level 8.4 Medications Medications Current Medications Acetaminophen (Tylenol Tab) 650 mg Q6H PRN PO PAIN LEVEL 1-3 OR FEVER Last administered on 02/06/17 23:54; Admin Dose 650 MG; Start 01/22/17 at 16:00; Status Future Hold Docusate Sodium (Colace) 100 mg Q12H PRN PO CONSTIPATION; Start 01/22/17 at 16 :00 Magnesium Hydroxide (Milk Of Mag) 30 ml DAILY PRN PO CONSTIPATION Last administered on 01/31/17 07:38; Admin Dose 30 ML; Start 01/22/17 at 16:00 Bisacodyl (Dulcolax) 5 mg DAILY PRN PO CONSTIPATION Last administered on 05:07; Admin Dose 5 MG; Start 01/22/17 at 16:00 Polyethylene Glycol (Miralax) 17 gm DAILY PO Last administered on 02/09/17 09: 00; Admin Dose 17 GM; Start 01/26/17 at 15:30 Sodium Biphosphate/ Sodium Phosphate (Fleet Enema) 133 ml DAILY PRN [place] CONSTIPATION Last administered on 01/27/17 06:17; Admin Dose 133 ML; Start at 20:30 Tolterodine Tartrate (Detrol La) 4 mg DAILY PO Last administered on 02/13/17 09:33; Admin Dose 4 MG; Start 01/27/17 at 15:30 Morphine Sulfate 2 mg 2 mg Q2H PRN IV PAIN LEVEL 7-10 Last administered on 08:57; Admin Dose 2 MG; Start 01/28/17 at 14:00 Ondansetron HCl/ Dextrose (Zofran Inj/D5W) 54 ml @ 108 mls/hr Q6H PRN IV NAUSEA AND/OR VOMITING; Start 01/31/17 at 12:00 Hydromorphone HCl (Dilaudid) 1 mg Q2H PRN IV PAIN LEVEL 6-10 Last administered on 02/17/17 08:59; Admin Dose 1 MG; Start 02/02/17 at 11:30 Diphenhydramine HCl (Benadryl) 25 mg Q6H PRN IV ITCHING Last administered on 17:19; Admin Dose 25 MG; Start 02/02/17 at 11:30 Acetaminophen (Tylenol Liquid) 650 mg Q4H PRN GTB PAIN AND OR ELEVATED TEMP Last administered on 02/06/17 16:19; Admin Dose 650 MG; Start 02/04/17 at 08:30 ; Status Future Hold Docusate Sodium 100 mg 100 mg BID NGT Last administered on 02/14/17 20:49; Admin Dose 100 MG; Start 02/05/17 at 09:00 Fat Emulsion Intravenous 250 ml @ 10 mls/hr Q24H IV Last administered on 02/16 05:00; Admin Dose 10 MLS/HR; Start 02/05/17 at 20:00 Total Parenteral Nutrition (Tpn) 1,000 ml @ 70 mls/hr [id number] IV Last administered on 02/17/17 04:00; Admin Dose 70 MLS/HR; Start 02/05/17 at 20:00 Furosemide (Lasix) 20 mg DAILY IV Last administered on 02/13/17 09:33; Admin Dose 20 MG; Start 02/07/17 at 11:00; Status Future Hold Diagnostic Test (Pha) 1 ea 1 ea Q8 XX Last administered on 02/17/17 06:35; Admin Dose 1 EA; Start 02/07/17 at 22:00 Acetaminophen (Ofirmev 1000mg/ 100ml Iv) 100 ml @ 400 mls/hr Q6H PRN IVPB FEVER; Start 02/09/17 at 12:00 Lorazepam (Ativan) 1 mg Q2 PRN IV AGITATION Last administered on 02/17/17 02: 42; Admin Dose 1 MG; Start 02/10/17 at 12:30 Ondansetron HCl (Zofran Inj) 4 mg Q6H PRN IV NAUSEA AND/OR VOMITING; Start 01/20 at 14:30 DARREL DARBY Feb 17, 2017 11:09
--- NOTE | 2017-02-17 12:24 | PN ---
Date/Time of Note Date/Time of Note DATE: 02/17/17 TIME: 12:20 Assessment/Plan VTE Prophylaxis VTE Prophylaxis Intervention: SCD's Lines/Catheters IV Catheter Type (from Nrsg): Central Line Central line still needed: Yes Urinary Cath still in place: Yes Reason Cath still needed: urinary retention Assessment/Plan Assessment/Plan 56 yo F with known stage 4 ovarian Ca here admitted for abd pain from malignant ascites sp para 10.19, sp ureteral stenting as well sp debulking surgery on February 03. #high grade serious ovarian Ca sp debulking 10. -pt remains on TPN per blog writer onc. Of note, pt having BMs. Defer to blog writer onc to when PO diet can be tried. -per discussion with onc, no role for radiation. defer to onc re any chemotherapy decisions -cont pain meds #hydro from ovarian mass: sp bl jj stents, appreciate assistance #PEs: sp IVC filter placement #subclinical hypothyroid: outpatient f/u #anemia: ACD v other. heme on consult dispo: ARU consult placed, pt remains quite debilitated Subjective 24 Hr Interval Summary Free Text/Dictation nad, hungry Exam/Review of Systems Vital Signs Vitals Vital Signs Date Time Temp Pulse Resp B/P Pulse Ox O2 Delivery O2 Flow Rate FiO2 02/17/17 11:27 98.6 93 18 154/81 97 02/17/17 07:09 2.0 02/16/17 02:51 27 02/15/17 08:30 Nasal Cannula Intake and Output 02/16/17 02/16/17 02/17/17 15:00 23:00 07:00 Intake Total 1000 ml Output Total 1180 ml Balance -1180 ml 1000 ml Exam nad, a little disoriented no mrg lungs clear no rashes no edema Results Result Diagram: 02/17/17 0713 02/17/17 0713 Results 24 hrs Laboratory Tests Test 02/16/17 22:02 02/17/17 06:29 02/17/17 07:13 Bedside Glucose 97 92 White Blood Count 16.5 H Red Blood Count 3.23 L Hemoglobin 8.7 L Hematocrit 29.3 L Mean Corpuscular Volume 90.7 Mean Corpuscular Hemoglobin 26.9 L Mean Corpuscular Hemoglobin Concent 29.7 L Red Cell Distribution Width 19.5 H Platelet Count 575 #H Mean Platelet Volume 13.1 H Neutrophils % 85.9 H Lymphocytes % 4.3 L Monocytes % 7.1 Eosinophils % 1.4 Basophils % 0.2 Nucleated Red Blood Cells % 0.1 H Neutrophils # 14.2 H Lymphocytes # 0.7 L Monocytes # 1.2 H Eosinophils # 0.2 Basophils # 0.0 Nucleated Red Blood Cells # 0.0 Sodium Level 142 Potassium Level 4.2 Chloride Level 108 Carbon Dioxide Level 26 Anion Gap 12 Blood Urea Nitrogen 12 Creatinine 0.43 L Glucose Level 91 Calcium Level 8.4 Medications Medications Current Medications Acetaminophen (Tylenol Tab) 650 mg Q6H PRN PO PAIN LEVEL 1-3 OR FEVER Last administered on 02/06/17 23:54; Admin Dose 650 MG; Start 01/22/17 at 16:00; Status Future Hold Docusate Sodium (Colace) 100 mg Q12H PRN PO CONSTIPATION; Start 01/22/17 at 16 :00 Magnesium Hydroxide (Milk Of Mag) 30 ml DAILY PRN PO CONSTIPATION Last administered on 01/31/17 07:38; Admin Dose 30 ML; Start 01/22/17 at 16:00 Bisacodyl (Dulcolax) 5 mg DAILY PRN PO CONSTIPATION Last administered on 05:07; Admin Dose 5 MG; Start 01/22/17 at 16:00 Polyethylene Glycol (Miralax) 17 gm DAILY PO Last administered on 02/09/17 09: 00; Admin Dose 17 GM; Start 01/26/17 at 15:30 Sodium Biphosphate/ Sodium Phosphate (Fleet Enema) 133 ml DAILY PRN [place] CONSTIPATION Last administered on 01/27/17 06:17; Admin Dose 133 ML; Start at 20:30 Tolterodine Tartrate (Detrol La) 4 mg DAILY PO Last administered on 02/13/17 09:33; Admin Dose 4 MG; Start 01/27/17 at 15:30 Morphine Sulfate 2 mg 2 mg Q2H PRN IV PAIN LEVEL 7-10 Last administered on 08:57; Admin Dose 2 MG; Start 01/28/17 at 14:00 Ondansetron HCl/ Dextrose (Zofran Inj/D5W) 54 ml @ 108 mls/hr Q6H PRN IV NAUSEA AND/OR VOMITING; Start 01/31/17 at 12:00 Hydromorphone HCl (Dilaudid) 1 mg Q2H PRN IV PAIN LEVEL 6-10 Last administered on 02/17/17 08:59; Admin Dose 1 MG; Start 02/02/17 at 11:30 Diphenhydramine HCl (Benadryl) 25 mg Q6H PRN IV ITCHING Last administered on 17:19; Admin Dose 25 MG; Start 02/02/17 at 11:30 Acetaminophen (Tylenol Liquid) 650 mg Q4H PRN GTB PAIN AND OR ELEVATED TEMP Last administered on 02/06/17 16:19; Admin Dose 650 MG; Start 02/04/17 at 08:30 ; Status Future Hold Docusate Sodium 100 mg 100 mg BID NGT Last administered on 02/14/17 20:49; Admin Dose 100 MG; Start 02/05/17 at 09:00 Fat Emulsion Intravenous 250 ml @ 10 mls/hr Q24H IV Last administered on 02/16 05:00; Admin Dose 10 MLS/HR; Start 02/05/17 at 20:00 Total Parenteral Nutrition (Tpn) 1,000 ml @ 70 mls/hr [id number] IV Last administered on 02/17/17 04:00; Admin Dose 70 MLS/HR; Start 02/05/17 at 20:00 Furosemide (Lasix) 20 mg DAILY IV Last administered on 02/13/17 09:33; Admin Dose 20 MG; Start 02/07/17 at 11:00; Status Future Hold Diagnostic Test (Pha) 1 ea 1 ea Q8 XX Last administered on 02/17/17 06:35; Admin Dose 1 EA; Start 02/07/17 at 22:00 Acetaminophen (Ofirmev 1000mg/ 100ml Iv) 100 ml @ 400 mls/hr Q6H PRN IVPB FEVER; Start 02/09/17 at 12:00 Lorazepam (Ativan) 1 mg Q2 PRN IV AGITATION Last administered on 02/17/17 02: 42; Admin Dose 1 MG; Start 02/10/17 at 12:30 Ondansetron HCl (Zofran Inj) 4 mg Q6H PRN IV NAUSEA AND/OR VOMITING; Start 01/20 at 14:30 Heparin Sodium (Porcine) (Heparin (5000 Units/0.5 ml)) 5,000 unit BID SC ; Start 02/17/17 at 21:00; Status UNV DAYANARA BROWN MD Feb 17, 2017 12:24
[2017-02-17] MEDS: ONDANSETRON 4 MG INJ IV PRN (13:09)
--- NOTE | 2017-02-17 13:30 | CONS ---
Date/Time of Note Date/Time of Note DATE: 02/17/17 TIME: 13:29 Consult Date/Type/Reason Admit Date/Time Jan 22, 2017 at 14:12 Initial Consult Date 02/03/17 Type of Consultation: ID Ordering Provider: DAYANARA BROWN MD Objective Vital Signs Date Time Temp Pulse Resp B/P Pulse Ox O2 Delivery O2 Flow Rate FiO2 02/17/17 12:20 89 02/17/17 11:27 98.6 18 154/81 97 02/17/17 07:09 2.0 02/16/17 02:51 27 02/15/17 08:30 Nasal Cannula Intake and Output 02/16/17 02/16/17 02/17/17 15:00 23:00 07:00 Intake Total 1000 ml Output Total 1180 ml Balance -1180 ml 1000 ml Results/Medications Result Diagram: 02/17/17 0713 02/17/17 0713 Results 24 hrs Laboratory Tests Test 02/16/17 22:02 02/17/17 06:29 02/17/17 07:13 Bedside Glucose 97 92 White Blood Count 16.5 H Red Blood Count 3.23 L Hemoglobin 8.7 L Hematocrit 29.3 L Mean Corpuscular Volume 90.7 Mean Corpuscular Hemoglobin 26.9 L Mean Corpuscular Hemoglobin Concent 29.7 L Red Cell Distribution Width 19.5 H Platelet Count 575 #H Mean Platelet Volume 13.1 H Neutrophils % 85.9 H Lymphocytes % 4.3 L Monocytes % 7.1 Eosinophils % 1.4 Basophils % 0.2 Nucleated Red Blood Cells % 0.1 H Neutrophils # 14.2 H Lymphocytes # 0.7 L Monocytes # 1.2 H Eosinophils # 0.2 Basophils # 0.0 Nucleated Red Blood Cells # 0.0 Sodium Level 142 Potassium Level 4.2 Chloride Level 108 Carbon Dioxide Level 26 Anion Gap 12 Blood Urea Nitrogen 12 Creatinine 0.43 L Glucose Level 91 Calcium Level 8.4 Medications Current Medications Acetaminophen (Tylenol Tab) 650 mg Q6H PRN PO PAIN LEVEL 1-3 OR FEVER Last administered on 02/06/17t 23:54; Admin Dose 650 MG; Start 01/22/17 at 16:00; Status Future Hold Docusate Sodium (Colace) 100 mg Q12H PRN PO CONSTIPATION; Start 01/22/17 at 16 :00 Magnesium Hydroxide (Milk Of Mag) 30 ml DAILY PRN PO CONSTIPATION Last administered on 01/31/17 07:38; Admin Dose 30 ML; Start 01/22/17 at 16:00 Bisacodyl (Dulcolax) 5 mg DAILY PRN PO CONSTIPATION Last administered on 05:07; Admin Dose 5 MG; Start 01/22/17 at 16:00 Polyethylene Glycol (Miralax) 17 gm DAILY PO Last administered on 02/09/17 09: 00; Admin Dose 17 GM; Start 01/26/17 at 15:30 Sodium Biphosphate/ Sodium Phosphate (Fleet Enema) 133 ml DAILY PRN [place] CONSTIPATION Last administered on 01/27/17 06:17; Admin Dose 133 ML; Start at 20:30 Tolterodine Tartrate (Detrol La) 4 mg DAILY PO Last administered on 02/13/17 09:33; Admin Dose 4 MG; Start 01/27/17 at 15:30 Morphine Sulfate 2 mg 2 mg Q2H PRN IV PAIN LEVEL 7-10 Last administered on 08:57; Admin Dose 2 MG; Start 01/28/17 at 14:00 Ondansetron HCl/ Dextrose (Zofran Inj/D5W) 54 ml @ 108 mls/hr Q6H PRN IV NAUSEA AND/OR VOMITING; Start 01/31/17 at 12:00 Hydromorphone HCl (Dilaudid) 1 mg Q2H PRN IV PAIN LEVEL 6-10 Last administered on 02/17/17 13:03; Admin Dose 1 MG; Start 02/02/17 at 11:30 Acetaminophen (Tylenol Liquid) 650 mg Q4H PRN GTB PAIN AND OR ELEVATED TEMP Last administered on 02/06/17 16:19; Admin Dose 650 MG; Start 02/04/17 at 08:30 ; Status Future Hold Docusate Sodium 100 mg 100 mg BID NGT Last administered on 02/14/17 20:49; Admin Dose 100 MG; Start 02/05/17 at 09:00 Fat Emulsion Intravenous 250 ml @ 10 mls/hr Q24H IV Last administered on 02/16 05:00; Admin Dose 10 MLS/HR; Start 02/05/17 at 20:00 Total Parenteral Nutrition (Tpn) 1,000 ml @ 70 mls/hr [id number] IV Last administered on 02/17/17 04:00; Admin Dose 70 MLS/HR; Start 02/05/17 at 20:00 Furosemide (Lasix) 20 mg DAILY IV Last administered on 02/13/17 09:33; Admin Dose 20 MG; Start 02/07/17 at 11:00; Status Future Hold Diagnostic Test (Pha) (Accu-Chek) 1 ea Q8 XX Last administered on 02/17/17 06 :35; Admin Dose 1 EA; Start 02/07/17 at 22:00 Lorazepam (Ativan) 1 mg Q2 PRN IV AGITATION Last administered on 02/17/17 02: 42; Admin Dose 1 MG; Start 02/10/17 at 12:30 Ondansetron HCl (Zofran Inj) 4 mg Q6H PRN IV NAUSEA AND/OR VOMITING Last administered on 02/17/17 13:09; Admin Dose 4 MG; Start 02/13/17 at 14:30 Heparin Sodium (Porcine) (Heparin (5000 Units/0.5 ml)) 5,000 unit BID SC ; Start 02/17/17 at 21:00 Assessment/Plan Chief Complaint/Hosp Course SUBJECTIVE: No events overnight. Patient is awake, looks better, no fevers ANTIMICROBIALS: none INDWELLINGS: Triple lumen catheter JPs, Cullen catheter, R abd pigtail. PHYSICAL EXAMINATION: GENERAL: This is a wasted, chronically ill-appearing, 56-year-old woman who is awake, in no distress. HEENT: Head atraumatic, normocephalic. Sclerae icteric. Buccal mucosa dry. NECK: Supple. CHEST: Rise symmetrical. Breath sounds diminished at bases. HEART: S1, S2. ABDOMEN: Soft, bowel tones present, incision clean. EXTREMITIES: With trace edema. ASSESSMENT: 1. Systemic inflammatory response syndrome with persistent leukocytosis. 2. S/p CT-guided drainage of intraabdominal abscess on 02/10/17. 3. Bilateral pulmonary emboli, s/p IVC filter. 4. Metastatic ovarian cancer, status post tumor debulking on 02/02/2017. 5. Bilateral hydronephrosis, status post JJ stent placement on 01/24/2017. 6. Status post alpha hemolytic streptococci urinary tract infection. 7. Cachexia. 8. Encephalopathy. PLAN: Overall clinically improving, continue present care, observe off abx, repeat cx's prn DW staff Problems: CARLOS SOLIZ NP Feb 17, 2017 13:30
--- NOTE | 2017-02-17 17:48 | CONS ---
Date/Time of Note Date/Time of Note DATE: 02/17/17 TIME: 17:46 Assessment/Plan Assessment/Plan Chief Complaint/Hosp Course ADVANCED OVARIAN CANCER WITH MALIGNANT ASCITES AND PERITONEAL carcinomatosis- Stage IIIc - IV ovarian cancer Large conglomerate pelvic mass inseparable from the uterus, sigmoid colon and rectum containing clumps of calcification suspicious for calcified fibroids and containing cystic areas. Large amount of free intraperitoneal fluid measuring 25 HU with caking of the omentum compatible with carcinomatosis. Centralization of bowel without evidence of bowel obstruction. Moderately severe right hydronephrosis and hydroureter to the level of the pelvic mass. There is moderate left pelvocaliectasis without ureteral dilatation. The bladder is quite distended with urine. POST cystoscopy and insertion of bilateral JJ stents. PER DR ABRAMS-If she gets better and respond to treatment then later on in the future she will need the stents removed and may be replaced CT CHEST - EDOUARD, EXCEPT SMALL L PLEURAL EFFUSION CA 125- 337 POST debulking surgery PATH- T3N0M1 High grade serous carcinoma. PLAN- CHEMO WHEN CLEARED BY GYNEONC IVC filter ANEMIA, MICROCYTOSIS COMPLEX ANEMIA W-UP= + COMPONENT ACD DROP H/H POSTOP SERIAL H/H PRBC NEEDED PER STANDING ORDERS D/W RN LEUKOCYTOSIS REACTIVE, PARTIALLY 2 TO Splenectomy, partially 2 to infection PELVIC ABSCESS- POST DRAINAGE malignant ascites sp para 10.19. hydro AUR from ascites, sp ureteral stenting. ILEUS NG TPN Problems: Consultation Date/Type/Reason Admit Date/Time Jan 22, 2017 at 14:12 Initial Consult Date 01/27/17 Type of Consultation: [facility] Referring Provider: DAYANARA BROWN MD 24 HR Interval Summary Free Text/Dictation WEAK, IN BED EMOTIONALLY DISTRESSED Exam/Review of Systems Vital Signs Vitals Vital Signs Date Time Temp Pulse Resp B/P Pulse Ox O2 Delivery O2 Flow Rate FiO2 02/17/17 16:08 88 02/17/17 15:46 98.6 141/78 98 02/17/17 15:18 2.0 02/17/17 11:27 18 02/16/17 02:51 27 02/15/17 08:30 Nasal Cannula Intake and Output 02/16/17 02/16/17 02/17/17 14:59 22:59 06:59 Intake Total 1000 ml Output Total 30 ml 1180 ml Balance -30 ml -1180 ml 1000 ml Exam GENERAL: Chronically ill-appearing lady intermittent confusion VITAL SIGNS: per chart NECK: Supple. No JVD or lymphadenopathy. CARDIAC EXAM: S1, S2. No added sounds or murmurs. CHEST: Bilateral rales. ABDOMEN: Soft, nontender. No guarding or rebound. EXTREMITIES: No cyanosis, clubbing or edema. NEUROLOGIC: Generalized weakness. No focal deficits. Results Result Diagram: 02/17/1713 02/17/17712 Results 24 hrs Laboratory Tests Test 02/16/17 22:02 02/17/17 06:29 02/17/17 07:13 02/17/17 14:08 Bedside Glucose 97 92 95 White Blood Count 16.5 H Red Blood Count 3.23 L Hemoglobin 8.7 L Hematocrit 29.3 L Mean Corpuscular Volume 90.7 Mean Corpuscular Hemoglobin 26.9 L Mean Corpuscular Hemoglobin Concent 29.7 L Red Cell Distribution Width 19.5 H Platelet Count 575 #H Mean Platelet Volume 13.1 H Neutrophils % 85.9 H Lymphocytes % 4.3 L Monocytes % 7.1 Eosinophils % 1.4 Basophils % 0.2 Nucleated Red Blood Cells % 0.1 H Neutrophils # 14.2 H Lymphocytes # 0.7 L Monocytes # 1.2 H Eosinophils # 0.2 Basophils # 0.0 Nucleated Red Blood Cells # 0.0 Sodium Level 142 Potassium Level 4.2 Chloride Level 108 Carbon Dioxide Level 26 Anion Gap 12 Blood Urea Nitrogen 12 Creatinine 0.43 L Glucose Level 91 Calcium Level 8.4 Medications Medications Current Medications Acetaminophen (Tylenol Tab) 650 mg Q6H PRN PO PAIN LEVEL 1-3 OR FEVER Last administered on 02/06/17 23:54; Admin Dose 650 MG; Start 01/22/17 at 16:00; Status Future Hold Docusate Sodium (Colace) 100 mg Q12H PRN PO CONSTIPATION; Start 01/22/17 at 16 :00 Magnesium Hydroxide (Milk Of Mag) 30 ml DAILY PRN PO CONSTIPATION Last administered on 01/31/17 07:38; Admin Dose 30 ML; Start 01/22/17 at 16:00 Bisacodyl (Dulcolax) 5 mg DAILY PRN PO CONSTIPATION Last administered on 05:07; Admin Dose 5 MG; Start 01/22/17 at 16:00 Polyethylene Glycol (Miralax) 17 gm DAILY PO Last administered on 02/09/17 09: 00; Admin Dose 17 GM; Start 01/26/17 at 15:30 Sodium Biphosphate/ Sodium Phosphate (Fleet Enema) 133 ml DAILY PRN [place] CONSTIPATION Last administered on 01/27/17 06:17; Admin Dose 133 ML; Start at 20:30 Tolterodine Tartrate (Detrol La) 4 mg DAILY PO Last administered on 02/13/17 09:33; Admin Dose 4 MG; Start 01/27/17 at 15:30 Morphine Sulfate 2 mg 2 mg Q2H PRN IV PAIN LEVEL 7-10 Last administered on 08:57; Admin Dose 2 MG; Start 01/28/17 at 14:00 Ondansetron HCl/ Dextrose (Zofran Inj/D5W) 54 ml @ 108 mls/hr Q6H PRN IV NAUSEA AND/OR VOMITING; Start 01/31/17 at 12:00 Hydromorphone HCl (Dilaudid) 1 mg Q2H PRN IV PAIN LEVEL 6-10 Last administered on 02/17/17 17:01; Admin Dose 1 MG; Start 02/02/17 at 11:30 Acetaminophen (Tylenol Liquid) 650 mg Q4H PRN GTB PAIN AND OR ELEVATED TEMP Last administered on 02/06/17 16:19; Admin Dose 650 MG; Start 02/04/17 at 08:30 ; Status Future Hold Docusate Sodium 100 mg 100 mg BID NGT Last administered on 02/14/17 20:49; Admin Dose 100 MG; Start 02/05/17 at 09:00 Fat Emulsion Intravenous 250 ml @ 10 mls/hr Q24H IV Last administered on 02/16 05:00; Admin Dose 10 MLS/HR; Start 02/05/17 at 20:00 Total Parenteral Nutrition (Tpn) 1,000 ml @ 70 mls/hr [id number] IV Last administered on 02/17/17 04:00; Admin Dose 70 MLS/HR; Start 02/05/17 at 20:00 Furosemide (Lasix) 20 mg DAILY IV Last administered on 02/13/17 09:33; Admin Dose 20 MG; Start 02/07/17 at 11:00; Status Future Hold Diagnostic Test (Pha) (Accu-Chek) 1 ea Q8 XX Last administered on 02/17/17 14 :25; Admin Dose 1 EA; Start 02/07/17 at 22:00 Lorazepam (Ativan) 1 mg Q2 PRN IV AGITATION Last administered on 02/17/17 02: 42; Admin Dose 1 MG; Start 02/10/17 at 12:30 Ondansetron HCl (Zofran Inj) 4 mg Q6H PRN IV NAUSEA AND/OR VOMITING Last administered on 02/17/17 13:09; Admin Dose 4 MG; Start 02/13/17 at 14:30 Heparin Sodium (Porcine) (Heparin (5000 Units/0.5 ml)) 5,000 unit BID SC ; Start 02/17/17 at 21:00 RAMIREZ YBARRA MD Feb 17, 2017 17:48
--- NOTE | 2017-02-17 19:20 | PN ---
Date/Time of Note Date/Time of Note DATE: 02/17/17 TIME: 19:17 Assessment/Plan VTE Prophylaxis VTE Prophylaxis Intervention: heparin Lines/Catheters IV Catheter Type (from Nrs): Central Line Central line still needed: Yes Urinary Cath still in place: Yes Reason Cath still needed: other (indicate) Assessment/Plan Chief Complaint/Hosp Course Stage IIIc - IV ovarian cancer Problems: Assessment/Plan A- gradual impvt but improve yest and + loose BM P clear liq Subjective 24 Hr Interval Summary Free Text/Dictation Feels minimally impvt relative to yesterday and loose stool. Exam/Review of Systems Vital Signs Vitals Vital Signs Date Time Temp Pulse Resp B/P Pulse Ox O2 Delivery O2 Flow Rate FiO2 02/17/17 16:08 88 02/17/17 15:46 98.6 141/78 98 02/17/17 15:18 2.0 02/17/17 11:27 18 02/16/17 02:51 27 02/15/17 08:30 Nasal Cannula Intake and Output 02/16/17 02/16/17 02/17/17 15:00 23:00 07:00 Intake Total 1000 ml Output Total 1180 ml Balance -1180 ml 1000 ml Exam Resp-clear CVS- NSR Abd- soft and sl distension Ext- NT Results Result Diagram: 02/17/1713 02/17/1713 Results 24 hrs Laboratory Tests Test 02/16/17 22:02 02/17/17 06:29 02/17/17 07:13 02/17/17 14:08 Bedside Glucose 97 92 95 White Blood Count 16.5 H Red Blood Count 3.23 L Hemoglobin 8.7 L Hematocrit 29.3 L Mean Corpuscular Volume 90.7 Mean Corpuscular Hemoglobin 26.9 L Mean Corpuscular Hemoglobin Concent 29.7 L Red Cell Distribution Width 19.5 H Platelet Count 575 #H Mean Platelet Volume 13.1 H Neutrophils % 85.9 H Lymphocytes % 4.3 L Monocytes % 7.1 Eosinophils % 1.4 Basophils % 0.2 Nucleated Red Blood Cells % 0.1 H Neutrophils # 14.2 H Lymphocytes # 0.7 L Monocytes # 1.2 H Eosinophils # 0.2 Basophils # 0.0 Nucleated Red Blood Cells # 0.0 Sodium Level 142 Potassium Level 4.2 Chloride Level 108 Carbon Dioxide Level 26 Anion Gap 12 Blood Urea Nitrogen 12 Creatinine 0.43 L Glucose Level 91 Calcium Level 8.4 Medications Medications Current Medications Acetaminophen (Tylenol Tab) 650 mg Q6H PRN PO PAIN LEVEL 1-3 OR FEVER Last administered on 02/06/17 23:54; Admin Dose 650 MG; Start 01/22/17 at 16:00; Status Future Hold Docusate Sodium (Colace) 100 mg Q12H PRN PO CONSTIPATION; Start 01/22/17 at 16 :00 Magnesium Hydroxide (Milk Of Mag) 30 ml DAILY PRN PO CONSTIPATION Last administered on 01/31/17 07:38; Admin Dose 30 ML; Start 01/22/17 at 16:00 Bisacodyl (Dulcolax) 5 mg DAILY PRN PO CONSTIPATION Last administered on 05:07; Admin Dose 5 MG; Start 01/22/17 at 16:00 Polyethylene Glycol (Miralax) 17 gm DAILY PO Last administered on 02/09/17 09: 00; Admin Dose 17 GM; Start 01/26/17 at 15:30 Sodium Biphosphate/ Sodium Phosphate (Fleet Enema) 133 ml DAILY PRN [place] CONSTIPATION Last administered on 01/27/17 06:17; Admin Dose 133 ML; Start at 20:30 Tolterodine Tartrate (Detrol La) 4 mg DAILY PO Last administered on 02/13/17 09:33; Admin Dose 4 MG; Start 01/27/17 at 15:30 Morphine Sulfate 2 mg 2 mg Q2H PRN IV PAIN LEVEL 7-10 Last administered on 08:57; Admin Dose 2 MG; Start 01/28/17 at 14:00 Ondansetron HCl/ Dextrose (Zofran Inj/D5W) 54 ml @ 108 mls/hr Q6H PRN IV NAUSEA AND/OR VOMITING; Start 01/31/17 at 12:00 Hydromorphone HCl (Dilaudid) 1 mg Q2H PRN IV PAIN LEVEL 6-10 Last administered on 02/17/17 17:01; Admin Dose 1 MG; Start 02/02/17 at 11:30 Acetaminophen (Tylenol Liquid) 650 mg Q4H PRN GTB PAIN AND OR ELEVATED TEMP Last administered on 02/06/17 16:19; Admin Dose 650 MG; Start 02/04/17 at 08:30 ; Status Future Hold Docusate Sodium 100 mg 100 mg BID NGT Last administered on 02/14/17 20:49; Admin Dose 100 MG; Start 02/05/17 at 09:00 Fat Emulsion Intravenous 250 ml @ 10 mls/hr Q24H IV Last administered on 02/16 05:00; Admin Dose 10 MLS/HR; Start 02/05/17 at 20:00 Total Parenteral Nutrition (Tpn) 1,000 ml @ 70 mls/hr [id number] IV Last administered on 02/17/17 18:48; Admin Dose 70 MLS/HR; Start 02/05/17 at 20:00 Furosemide (Lasix) 20 mg DAILY IV Last administered on 02/13/17 09:33; Admin Dose 20 MG; Start 02/07/17 at 11:00; Status Future Hold Diagnostic Test (Pha) (Accu-Chek) 1 ea Q8 XX Last administered on 02/17/17 14 :25; Admin Dose 1 EA; Start 02/07/17 at 22:00 Lorazepam (Ativan) 1 mg Q2 PRN IV AGITATION Last administered on 02/17/17 02: 42; Admin Dose 1 MG; Start 02/10/17 at 12:30 Ondansetron HCl (Zofran Inj) 4 mg Q6H PRN IV NAUSEA AND/OR VOMITING Last administered on 02/17/17 13:09; Admin Dose 4 MG; Start 02/13/17 at 14:30 Heparin Sodium (Porcine) (Heparin (5000 Units/0.5 ml)) 5,000 unit BID SC ; Start 02/17/17 at 21:00 RAUL EUCEDA MD Feb 17, 2017 19:20
[2017-02-17] MEDS: FAT EMULSION 20% 250 ML IV SCH (21:02)
[2017-02-17] MEDS: HEPARIN 5,000 UNIT/0.5 ML VIAL SC SCH (21:32)
[2017-02-18] VITALS (12 sets, daily range): BP systolic 121–150; BP diastolic 73–83; PULSE 85–109; RESP 16–22
[2017-02-18] MEDS: ACCU-CHEK XX SCH ×3 (06:55→21:47)
[2017-02-18 07:13] LABS: ABNORMAL IP MESSAGE 1; BASOPHILS % 0.1 % (0.0-2.0); EOSINOPHILS # 0.1 10^3/ul (0.0-0.5); EOSINOPHILS % 0.6 % (0.0-7.0); HEMATOCRIT 29.7 % (37.0-47.0); HEMOGLOBIN 9.3 g/dl (12.0-16.0); LYMPHOCYTES # 0.5 10^3/ul (0.8-2.9); LYMPHOCYTES % 3.2 % (15.0-51.0); MEAN CORPUSCULAR HEMOGLOBIN 27.5 pg (29.0-33.0); MEAN CORPUSCULAR HGB CONC 31.3 g/dl (32.0-37.0); MEAN CORPUSCULAR VOLUME 87.9 fl (82.0-101.0); MEAN PLATELET VOLUME 12.8 fl (7.4-10.4); MONOCYTE # 1.1 10^3/ul (0.3-0.9); MONOCYTES % 6.9 % (0.0-11.0); NEUTROPHIL # 14.1 10^3/ul (1.6-7.5); NEUTROPHILS % 88.1 % (39.0-77.0); NUCLEATED RED BLOOD CELLS% 0.2 /100WBC (0.0-0.0); PLATELET COUNT 637 10^3/UL (140-415); RED BLOOD COUNT 3.38 10^6/ul (4.20-5.40); RED CELL DISTRIBUTION WIDTH 18.6 % (11.5-14.5); WHITE BLOOD COUNT 16.1 10^3/ul (4.8-10.8)
[2017-02-18 07:16] LABS: POSITIVE DIFF @See below
[2017-02-18 07:51] LABS: CALCIUM 8.3 mg/dl (8.4-10.2); CREATININE 0.43 mg/dl (0.44-1.00); POTASSIUM 4.1 mmol/L (3.5-5.1)
[2017-02-18] MEDS: DOCUSATE SODIUM 10 MG/ML (10ML CUP) NGT SCH ×2 (09:00→20:39)
[2017-02-18] MEDS: POLYETHYLENE GLYCOL 17 GM PACKET PO SCH (09:00)
[2017-02-18] MEDS: TPN 1,000 ML IV SCH (09:02)
[2017-02-18] MEDS: HEPARIN 5,000 UNIT/0.5 ML VIAL SC SCH ×2 (09:05→20:40)
[2017-02-18] MEDS: TOLTERODINE (SR) 4 MG CAP PO SCH (09:15)
[2017-02-18] MEDS: LORAZEPAM 2 MG INJ IV PRN (10:56)
[2017-02-18] MEDS: HYDROmorphONE 0.5 MG/0.5 ML SYG IV PRN ×2 (11:40→21:56)
--- NOTE | 2017-02-18 12:11 | CONS ---
Date/Time of Note Date/Time of Note DATE: 02/18/17 TIME: 12:10 Assessment/Plan Assessment/Plan Chief Complaint/Hosp Course ADVANCED OVARIAN CANCER WITH MALIGNANT ASCITES AND PERITONEAL carcinomatosis- Stage IIIc - IV ovarian cancer Large conglomerate pelvic mass inseparable from the uterus, sigmoid colon and rectum containing clumps of calcification suspicious for calcified fibroids and containing cystic areas. Large amount of free intraperitoneal fluid measuring 25 HU with caking of the omentum compatible with carcinomatosis. Centralization of bowel without evidence of bowel obstruction. Moderately severe right hydronephrosis and hydroureter to the level of the pelvic mass. There is moderate left pelvocaliectasis without ureteral dilatation. The bladder is quite distended with urine. POST cystoscopy and insertion of bilateral JJ stents. PER DR ABRAMS-If she gets better and respond to treatment then later on in the future she will need the stents removed and may be replaced CT CHEST - EDOUARD, EXCEPT SMALL L PLEURAL EFFUSION CA 125- 337 POST debulking surgery PATH- T3N0M1 High grade serous carcinoma. D/W SON- HE IS REFUSING CHEMO IVC filter ANEMIA, MICROCYTOSIS COMPLEX ANEMIA W-UP= + COMPONENT ACD DROP H/H POSTOP SERIAL H/H PRBC NEEDED PER STANDING ORDERS D/W RN LEUKOCYTOSIS REACTIVE, PARTIALLY 2 TO Splenectomy, partially 2 to infection PELVIC ABSCESS- POST DRAINAGE malignant ascites sp para 10.19. hydro AUR from ascites, sp ureteral stenting. ILEUS NG TPN Problems: Consultation Date/Type/Reason Admit Date/Time Jan 22, 2017 at 14:12 Initial Consult Date 01/27/17 Type of Consultation: [facility] Referring Provider: DAYANARA BROWN MD 24 HR Interval Summary Free Text/Dictation ALL NOTED D/W SON HE IS REFUSING CHEMO Exam/Review of Systems Vital Signs Vitals Vital Signs Date Time Temp Pulse Resp B/P Pulse Ox O2 Delivery O2 Flow Rate FiO2 02/18/17 11:56 97.8 98 22 145/83 94 02/17/17 15:18 2.0 02/16/17 02:51 27 02/15/17 08:30 Nasal Cannula Intake and Output 02/17/17 02/17/17 02/18/17 15:00 23:00 07:00 Intake Total 840 ml 1120 ml Output Total 1725 ml 1235 ml 60 ml Balance -885 ml -115 ml -60 ml Exam GENERAL: Chronically ill-appearing lady, CONFUSED, IN PAIN VITAL SIGNS: per chart NECK: Supple. No JVD or lymphadenopathy. CARDIAC EXAM: S1, S2. No added sounds or murmurs. CHEST: Bilateral rales. ABDOMEN: Soft, nontender. No guarding or rebound. EXTREMITIES: No cyanosis, clubbing or edema. NEUROLOGIC: Generalized weakness. No focal deficits. Results Result Diagram: 02/18/17 0654 02/18/17 0654 Results 24 hrs Laboratory Tests Test 02/17/17 14:08 02/17/17 22:32 02/18/17 06:54 Bedside Glucose 95 100 95 White Blood Count 16.1 H Red Blood Count 3.38 L Hemoglobin 9.3 L Hematocrit 29.7 L Mean Corpuscular Volume 87.9 Mean Corpuscular Hemoglobin 27.5 L Mean Corpuscular Hemoglobin Concent 31.3 L Red Cell Distribution Width 18.6 H Platelet Count 637 H Mean Platelet Volume 12.8 H Neutrophils % 88.1 H Lymphocytes % 3.2 L Monocytes % 6.9 Eosinophils % 0.6 Basophils % 0.1 Nucleated Red Blood Cells % 0.2 H Neutrophils # 14.1 H Lymphocytes # 0.5 L Monocytes # 1.1 H Eosinophils # 0.1 Basophils # 0.0 Nucleated Red Blood Cells # 0.0 Sodium Level 140 Potassium Level 4.1 Chloride Level 107 Carbon Dioxide Level 25 Anion Gap 12 Blood Urea Nitrogen 12 Creatinine 0.43 L Glucose Level 100 Calcium Level 8.3 L Medications Medications Current Medications Acetaminophen (Tylenol Tab) 650 mg Q6H PRN PO PAIN LEVEL 1-3 OR FEVER Last administered on 02/06/17 23:54; Admin Dose 650 MG; Start 01/22/17 at 16:00; Status Future Hold Docusate Sodium (Colace) 100 mg Q12H PRN PO CONSTIPATION; Start 01/22/17 at 16 :00 Magnesium Hydroxide (Milk Of Mag) 30 ml DAILY PRN PO CONSTIPATION Last administered on 01/31/17 07:38; Admin Dose 30 ML; Start 01/22/17 at 16:00 Bisacodyl (Dulcolax) 5 mg DAILY PRN PO CONSTIPATION Last administered on 05:07; Admin Dose 5 MG; Start 01/22/17 at 16:00 Polyethylene Glycol (Miralax) 17 gm DAILY PO Last administered on 02/09/17 09: 00; Admin Dose 17 GM; Start 01/26/17 at 15:30 Sodium Biphosphate/ Sodium Phosphate (Fleet Enema) 133 ml DAILY PRN [place] CONSTIPATION Last administered on 01/27/17 06:17; Admin Dose 133 ML; Start at 20:30 Tolterodine Tartrate (Detrol La) 4 mg DAILY PO Last administered on 02/18/17 09:15; Admin Dose 4 MG; Start 01/27/17 at 15:30 Morphine Sulfate 2 mg 2 mg Q2H PRN IV PAIN LEVEL 7-10 Last administered on 08:57; Admin Dose 2 MG; Start 01/28/17 at 14:00 Ondansetron HCl/ Dextrose (Zofran Inj/D5W) 54 ml @ 108 mls/hr Q6H PRN IV NAUSEA AND/OR VOMITING; Start 01/31/17 at 12:00 Hydromorphone HCl (Dilaudid) 1 mg Q2H PRN IV PAIN LEVEL 6-10 Last administered on 02/18/17 11:40; Admin Dose 1 MG; Start 02/02/17 at 11:30 Acetaminophen (Tylenol Liquid) 650 mg Q4H PRN GTB PAIN AND OR ELEVATED TEMP Last administered on 02/06/17 16:19; Admin Dose 650 MG; Start 02/04/17 at 08:30 ; Status Future Hold Docusate Sodium 100 mg 100 mg BID NGT Last administered on 02/14/17 20:49; Admin Dose 100 MG; Start 02/05/17 at 09:00 Fat Emulsion Intravenous 250 ml @ 10 mls/hr Q24H IV Last administered on 02/17 21:02; Admin Dose 10 MLS/HR; Start 02/05/17 at 20:00 Total Parenteral Nutrition (Tpn) 1,000 ml @ 70 mls/hr [id number] IV Last administered on 02/18/17 09:02; Admin Dose 70 MLS/HR; Start 02/05/17 at 20:00 Furosemide (Lasix) 20 mg DAILY IV Last administered on 02/13/17 09:33; Admin Dose 20 MG; Start 02/07/17 at 11:00; Status Future Hold Diagnostic Test (Pha) (Accu-Chek) 1 ea Q8 XX Last administered on 02/18/17 06 :55; Admin Dose 1 EA; Start 02/07/17 at 22:00 Lorazepam (Ativan) 1 mg Q2 PRN IV AGITATION Last administered on 02/18/17 10: 56; Admin Dose 1 MG; Start 02/10/17 at 12:30 Ondansetron HCl (Zofran Inj) 4 mg Q6H PRN IV NAUSEA AND/OR VOMITING Last administered on 02/17/17 13:09; Admin Dose 4 MG; Start 02/13/17 at 14:30 Heparin Sodium (Porcine) (Heparin (5000 Units/0.5 ml)) 5,000 unit BID SC Last administered on 02/18/17 09:05; Admin Dose 5,000 UNIT; Start 02/17/17 at 21: 00 RAMIREZ YBARRA MD Feb 18, 2017 12:11
--- NOTE | 2017-02-18 12:36 | CONS ---
Date/Time of Note Date/Time of Note DATE: 02/18/17 TIME: 12:36 Consult Date/Type/Reason Admit Date/Time Jan 22, 2017 at 14:12 Initial Consult Date 02/03/17 Type of Consultation: ID Ordering Provider: DAYANARA BROWN MD Objective Vital Signs Date Time Temp Pulse Resp B/P Pulse Ox O2 Delivery O2 Flow Rate FiO2 02/18/17 12:14 99 02/18/17 11:56 97.8 22 145/83 94 02/17/17 15:18 2.0 02/16/17 02:51 27 02/15/17 08:30 Nasal Cannula Intake and Output 02/17/17 02/17/17 02/18/17 15:00 23:00 07:00 Intake Total 840 ml 1120 ml Output Total 1725 ml 1235 ml 60 ml Balance -885 ml -115 ml -60 ml Results/Medications Result Diagram: 02/18/17 0654 02/18/17 0654 Results 24 hrs Laboratory Tests Test 02/17/17 14:08 02/17/17 22:32 02/18/17 06:54 Bedside Glucose 95 100 95 White Blood Count 16.1 H Red Blood Count 3.38 L Hemoglobin 9.3 L Hematocrit 29.7 L Mean Corpuscular Volume 87.9 Mean Corpuscular Hemoglobin 27.5 L Mean Corpuscular Hemoglobin Concent 31.3 L Red Cell Distribution Width 18.6 H Platelet Count 637 H Mean Platelet Volume 12.8 H Neutrophils % 88.1 H Lymphocytes % 3.2 L Monocytes % 6.9 Eosinophils % 0.6 Basophils % 0.1 Nucleated Red Blood Cells % 0.2 H Neutrophils # 14.1 H Lymphocytes # 0.5 L Monocytes # 1.1 H Eosinophils # 0.1 Basophils # 0.0 Nucleated Red Blood Cells # 0.0 Sodium Level 140 Potassium Level 4.1 Chloride Level 107 Carbon Dioxide Level 25 Anion Gap 12 Blood Urea Nitrogen 12 Creatinine 0.43 L Glucose Level 100 Calcium Level 8.3 L Medications Current Medications Acetaminophen (Tylenol Tab) 650 mg Q6H PRN PO PAIN LEVEL 1-3 OR FEVER Last administered on 02/06/17t 23:54; Admin Dose 650 MG; Start 01/22/17 at 16:00; Status Future Hold Docusate Sodium (Colace) 100 mg Q12H PRN PO CONSTIPATION; Start 01/22/17 at 16 :00 Magnesium Hydroxide (Milk Of Mag) 30 ml DAILY PRN PO CONSTIPATION Last administered on 01/31/17 07:38; Admin Dose 30 ML; Start 01/22/17 at 16:00 Bisacodyl (Dulcolax) 5 mg DAILY PRN PO CONSTIPATION Last administered on 05:07; Admin Dose 5 MG; Start 01/22/17 at 16:00 Polyethylene Glycol (Miralax) 17 gm DAILY PO Last administered on 02/09/17 09: 00; Admin Dose 17 GM; Start 01/26/17 at 15:30 Sodium Biphosphate/ Sodium Phosphate (Fleet Enema) 133 ml DAILY PRN [place] CONSTIPATION Last administered on 01/27/17 06:17; Admin Dose 133 ML; Start at 20:30 Tolterodine Tartrate (Detrol La) 4 mg DAILY PO Last administered on 02/18/17 09:15; Admin Dose 4 MG; Start 01/27/17 at 15:30 Morphine Sulfate 2 mg 2 mg Q2H PRN IV PAIN LEVEL 7-10 Last administered on 08:57; Admin Dose 2 MG; Start 01/28/17 at 14:00 Ondansetron HCl/ Dextrose (Zofran Inj/D5W) 54 ml @ 108 mls/hr Q6H PRN IV NAUSEA AND/OR VOMITING; Start 01/31/17 at 12:00 Hydromorphone HCl (Dilaudid) 1 mg Q2H PRN IV PAIN LEVEL 6-10 Last administered on 02/18/17 11:40; Admin Dose 1 MG; Start 02/02/17 at 11:30 Acetaminophen (Tylenol Liquid) 650 mg Q4H PRN GTB PAIN AND OR ELEVATED TEMP Last administered on 02/06/17 16:19; Admin Dose 650 MG; Start 02/04/17 at 08:30 ; Status Future Hold Docusate Sodium 100 mg 100 mg BID NGT Last administered on 02/14/17 20:49; Admin Dose 100 MG; Start 02/05/17 at 09:00 Fat Emulsion Intravenous 250 ml @ 10 mls/hr Q24H IV Last administered on 02/17 21:02; Admin Dose 10 MLS/HR; Start 02/05/17 at 20:00 Total Parenteral Nutrition (Tpn) 1,000 ml @ 70 mls/hr [id number] IV Last administered on 02/18/17 09:02; Admin Dose 70 MLS/HR; Start 02/05/17 at 20:00 Furosemide (Lasix) 20 mg DAILY IV Last administered on 02/13/17 09:33; Admin Dose 20 MG; Start 02/07/17 at 11:00; Status Future Hold Diagnostic Test (Pha) (Accu-Chek) 1 ea Q8 XX Last administered on 02/18/17 06 :55; Admin Dose 1 EA; Start 02/07/17 at 22:00 Lorazepam (Ativan) 1 mg Q2 PRN IV AGITATION Last administered on 02/18/17 10: 56; Admin Dose 1 MG; Start 02/10/17 at 12:30 Ondansetron HCl (Zofran Inj) 4 mg Q6H PRN IV NAUSEA AND/OR VOMITING Last administered on 02/17/17 13:09; Admin Dose 4 MG; Start 02/13/17 at 14:30 Heparin Sodium (Porcine) (Heparin (5000 Units/0.5 ml)) 5,000 unit BID SC Last administered on 02/18/17 09:05; Admin Dose 5,000 UNIT; Start 02/17/17 at 21: 00 Assessment/Plan Chief Complaint/Hosp Course SUBJECTIVE: No events overnight. Patient is awake, confused, looks comfortable , no fevers ANTIMICROBIALS: none INDWELLINGS: Triple lumen catheter JPs, Cullen catheter, R abd pigtail. PHYSICAL EXAMINATION: GENERAL: This is a wasted, chronically ill-appearing, 56-year-old woman who is awake, in no distress. HEENT: Head atraumatic, normocephalic. Sclerae icteric. Buccal mucosa dry. NECK: Supple. CHEST: Rise symmetrical. Breath sounds diminished at bases. HEART: S1, S2. ABDOMEN: Soft, bowel tones present, incision clean. EXTREMITIES: With trace edema. ASSESSMENT: 1. Systemic inflammatory response syndrome with persistent leukocytosis. 2. S/p CT-guided drainage of intraabdominal abscess on 02/10/17. 3. Bilateral pulmonary emboli, s/p IVC filter. 4. Metastatic ovarian cancer, status post tumor debulking on 02/02/2017. 5. Bilateral hydronephrosis, status post JJ stent placement on 01/24/2017. 6. Status post alpha hemolytic streptococci urinary tract infection. 7. Cachexia. 8. Encephalopathy. PLAN: Clinically unchanged, continue present care, observe off abx, repeat cx's prn, aspiration precautions DW staff Problems: CARLOS SOLIZ NP Feb 18, 2017 12:36
--- NOTE | 2017-02-18 14:10 | PN ---
Date/Time of Note Date/Time of Note DATE: 02/18/17 TIME: 14:06 Assessment/Plan VTE Prophylaxis VTE Prophylaxis Intervention: SCD's Lines/Catheters IV Catheter Type (from Nrsg): Central Line Central line still needed: Yes Urinary Cath still in place: Yes Reason Cath still needed: urinary retention Assessment/Plan Assessment/Plan 56 yo F with known stage 4 ovarian Ca admitted for abd pain from malignant ascites. sp para 10.19, sp ureteral stenting, sp debulking surgery on February 03. #high grade serious ovarian Ca sp debulking . -pt remains on TPN per tag clerk onc. Of note, pt having BMs. Defer to tag clerk onc to when PO diet can be advanced -per discussion with onc, no role for radiation. defer to onc re any chemotherapy decisions -cont pain meds #hydro from ovarian mass: sp bl jj stents, appreciate assistance #PEs: sp IVC filter placement awaiting input from heme as to when ATC can be resumed. pt will need treatment doses LMWH for at least 6 mos given VTE in setting of malignancy #subclinical hypothyroid: outpatient f/u #anemia: ACD v other. heme on consult dispo: PT/OT evals ongoing, will likely need SNF once TPN is weaned. Timing of chemo unclear. At this time pt dose not have any exterminator central access (ie port). defer timing of this to onc Subjective 24 Hr Interval Summary Free Text/Dictation frustrated this AM. repeatedly stating she wants to leave Exam/Review of Systems Vital Signs Vitals Vital Signs Date Time Temp Pulse Resp B/P Pulse Ox O2 Delivery O2 Flow Rate FiO2 02/18/17 12:14 99 02/18/17 11:56 97.8 22 145/83 94 02/17/17 15:18 2.0 02/16/17 02:51 27 02/15/17 08:30 Nasal Cannula Intake and Output 02/17/17 02/17/17 02/18/17 15:00 23:00 07:00 Intake Total 840 ml 1120 ml Output Total 1725 ml 1235 ml 60 ml Balance -885 ml -115 ml -60 ml Exam frustrated no mrg lungs clear abd soft no rashes Results Result Diagram: 02/18/17 0654 02/18/17 0654 Results 24 hrs Laboratory Tests Test 02/17/17 14:08 02/17/17 22:32 02/18/17 06:54 02/18/17 13:19 Bedside Glucose 95 100 95 105 White Blood Count 16.1 H Red Blood Count 3.38 L Hemoglobin 9.3 L Hematocrit 29.7 L Mean Corpuscular Volume 87.9 Mean Corpuscular Hemoglobin 27.5 L Mean Corpuscular Hemoglobin Concent 31.3 L Red Cell Distribution Width 18.6 H Platelet Count 637 H Mean Platelet Volume 12.8 H Neutrophils % 88.1 H Lymphocytes % 3.2 L Monocytes % 6.9 Eosinophils % 0.6 Basophils % 0.1 Nucleated Red Blood Cells % 0.2 H Neutrophils # 14.1 H Lymphocytes # 0.5 L Monocytes # 1.1 H Eosinophils # 0.1 Basophils # 0.0 Nucleated Red Blood Cells # 0.0 Sodium Level 140 Potassium Level 4.1 Chloride Level 107 Carbon Dioxide Level 25 Anion Gap 12 Blood Urea Nitrogen 12 Creatinine 0.43 L Glucose Level 100 Calcium Level 8.3 L Medications Medications Current Medications Acetaminophen (Tylenol Tab) 650 mg Q6H PRN PO PAIN LEVEL 1-3 OR FEVER Last administered on 02/06/17 23:54; Admin Dose 650 MG; Start 01/22/17 at 16:00; Status Future Hold Docusate Sodium (Colace) 100 mg Q12H PRN PO CONSTIPATION; Start 01/22/17 at 16 :00 Magnesium Hydroxide (Milk Of Mag) 30 ml DAILY PRN PO CONSTIPATION Last administered on 01/31/17 07:38; Admin Dose 30 ML; Start 01/22/17 at 16:00 Bisacodyl (Dulcolax) 5 mg DAILY PRN PO CONSTIPATION Last administered on 05:07; Admin Dose 5 MG; Start 01/22/17 at 16:00 Polyethylene Glycol (Miralax) 17 gm DAILY PO Last administered on 02/09/17 09: 00; Admin Dose 17 GM; Start 01/26/17 at 15:30 Sodium Biphosphate/ Sodium Phosphate (Fleet Enema) 133 ml DAILY PRN [place] CONSTIPATION Last administered on 01/27/17 06:17; Admin Dose 133 ML; Start at 20:30 Tolterodine Tartrate (Detrol La) 4 mg DAILY PO Last administered on 02/18/17 09:15; Admin Dose 4 MG; Start 01/27/17 at 15:30 Morphine Sulfate 2 mg 2 mg Q2H PRN IV PAIN LEVEL 7-10 Last administered on 08:57; Admin Dose 2 MG; Start 01/28/17 at 14:00 Ondansetron HCl/ Dextrose (Zofran Inj/D5W) 54 ml @ 108 mls/hr Q6H PRN IV NAUSEA AND/OR VOMITING; Start 01/31/17 at 12:00 Hydromorphone HCl (Dilaudid) 1 mg Q2H PRN IV PAIN LEVEL 6-10 Last administered on 02/18/17 11:40; Admin Dose 1 MG; Start 02/02/17 at 11:30 Acetaminophen (Tylenol Liquid) 650 mg Q4H PRN GTB PAIN AND OR ELEVATED TEMP Last administered on 02/06/17 16:19; Admin Dose 650 MG; Start 02/04/17 at 08:30 ; Status Future Hold Docusate Sodium 100 mg 100 mg BID NGT Last administered on 02/14/17 20:49; Admin Dose 100 MG; Start 02/05/17 at 09:00 Fat Emulsion Intravenous 250 ml @ 10 mls/hr Q24H IV Last administered on 02/17 21:02; Admin Dose 10 MLS/HR; Start 02/05/17 at 20:00 Total Parenteral Nutrition (Tpn) 1,000 ml @ 70 mls/hr [id number] IV Last administered on 02/18/17 09:02; Admin Dose 70 MLS/HR; Start 02/05/17 at 20:00 Furosemide (Lasix) 20 mg DAILY IV Last administered on 02/13/17 09:33; Admin Dose 20 MG; Start 02/07/17 at 11:00; Status Future Hold Diagnostic Test (Pha) (Accu-Chek) 1 ea Q8 XX Last administered on 02/18/17 13 :21; Admin Dose 1 EA; Start 02/07/17 at 22:00 Lorazepam (Ativan) 1 mg Q2 PRN IV AGITATION Last administered on 02/18/17 10: 56; Admin Dose 1 MG; Start 02/10/17 at 12:30 Ondansetron HCl (Zofran Inj) 4 mg Q6H PRN IV NAUSEA AND/OR VOMITING Last administered on 02/17/17 13:09; Admin Dose 4 MG; Start 02/13/17 at 14:30 Heparin Sodium (Porcine) (Heparin (5000 Units/0.5 ml)) 5,000 unit BID SC Last administered on 02/18/17 09:05; Admin Dose 5,000 UNIT; Start 02/17/17 at 21: 00 DAYANARA BROWN MD Feb 18, 2017 14:10
[2017-02-18] MEDS: FAT EMULSION 20% 250 ML IV SCH (20:18)
--- NOTE | 2017-02-18 20:56 | PN ---
Date/Time of Note Date/Time of Note DATE: 02/18/17 TIME: 20:48 Assessment/Plan VTE Prophylaxis VTE Prophylaxis Intervention: heparin Lines/Catheters IV Catheter Type (from Nrs): Central Line Central line still needed: Yes Urinary Cath still in place: Yes Reason Cath still needed: other (indicate) Assessment/Plan Chief Complaint/Hosp Course Stage IIIc - IV ovarian cancer Problems: Assessment/Plan A- gradual impvt but concern is: P- 1- Given that she had adv disease mostly removed she MUST have chemo immediately before discharged and I discussed with patient and she agreed immediately before operation. 2- based on her cancer issue and recovering and anticipated chemo she must be on 4W as I requested 3- her change in mentation mandates a evaluation by a neurologist Subjective 24 Hr Interval Summary Free Text/Dictation Pt slightly more alert bit still confused and + BM. Marginally rasheeda clear liq but no N/V. Exam/Review of Systems Vital Signs Vitals Vital Signs Date Time Temp Pulse Resp B/P Pulse Ox O2 Delivery O2 Flow Rate FiO2 02/18/17 16:20 102 02/18/17 15:40 97.9 20 121/80 98 02/17/17 15:18 2.0 02/16/17 02:51 27 02/15/17 08:30 Nasal Cannula Intake and Output 02/17/17 02/17/17 02/18/17 14:59 22:59 06:59 Intake Total 840 ml 1120 ml Output Total 1725 ml 1235 ml 60 ml Balance -885 ml -115 ml -60 ml Exam Resp- clear CVS- NSR Abd- wild dist with new devise and so suggestion of infection now Ext- NT less edema Results Result Diagram: 02/18/17 0654 02/18/17 0654 Results 24 hrs Laboratory Tests Test 02/17/17 22:32 02/18/17 06:54 02/18/17 13:19 Bedside Glucose 100 95 105 White Blood Count 16.1 H Red Blood Count 3.38 L Hemoglobin 9.3 L Hematocrit 29.7 L Mean Corpuscular Volume 87.9 Mean Corpuscular Hemoglobin 27.5 L Mean Corpuscular Hemoglobin Concent 31.3 L Red Cell Distribution Width 18.6 H Platelet Count 637 H Mean Platelet Volume 12.8 H Neutrophils % 88.1 H Lymphocytes % 3.2 L Monocytes % 6.9 Eosinophils % 0.6 Basophils % 0.1 Nucleated Red Blood Cells % 0.2 H Neutrophils # 14.1 H Lymphocytes # 0.5 L Monocytes # 1.1 H Eosinophils # 0.1 Basophils # 0.0 Nucleated Red Blood Cells # 0.0 Sodium Level 140 Potassium Level 4.1 Chloride Level 107 Carbon Dioxide Level 25 Anion Gap 12 Blood Urea Nitrogen 12 Creatinine 0.43 L Glucose Level 100 Calcium Level 8.3 L Medications Medications Current Medications Acetaminophen (Tylenol Tab) 650 mg Q6H PRN PO PAIN LEVEL 1-3 OR FEVER Last administered on 02/06/17 23:54; Admin Dose 650 MG; Start 01/22/17 at 16:00; Status Future Hold Docusate Sodium (Colace) 100 mg Q12H PRN PO CONSTIPATION; Start 01/22/17 at 16 :00 Magnesium Hydroxide (Milk Of Mag) 30 ml DAILY PRN PO CONSTIPATION Last administered on 01/31/17 07:38; Admin Dose 30 ML; Start 01/22/17 at 16:00 Bisacodyl (Dulcolax) 5 mg DAILY PRN PO CONSTIPATION Last administered on 05:07; Admin Dose 5 MG; Start 01/22/17 at 16:00 Polyethylene Glycol (Miralax) 17 gm DAILY PO Last administered on 02/09/17 09: 00; Admin Dose 17 GM; Start 01/26/17 at 15:30 Sodium Biphosphate/ Sodium Phosphate (Fleet Enema) 133 ml DAILY PRN [place] CONSTIPATION Last administered on 01/27/17 06:17; Admin Dose 133 ML; Start at 20:30 Tolterodine Tartrate (Detrol La) 4 mg DAILY PO Last administered on 02/18/17 09:15; Admin Dose 4 MG; Start 01/27/17 at 15:30 Morphine Sulfate 2 mg 2 mg Q2H PRN IV PAIN LEVEL 7-10 Last administered on 08:57; Admin Dose 2 MG; Start 01/28/17 at 14:00 Ondansetron HCl/ Dextrose (Zofran Inj/D5W) 54 ml @ 108 mls/hr Q6H PRN IV NAUSEA AND/OR VOMITING; Start 01/31/17 at 12:00 Hydromorphone HCl (Dilaudid) 1 mg Q2H PRN IV PAIN LEVEL 6-10 Last administered on 02/18/17 11:40; Admin Dose 1 MG; Start 02/02/17 at 11:30 Acetaminophen (Tylenol Liquid) 650 mg Q4H PRN GTB PAIN AND OR ELEVATED TEMP Last administered on 02/06/17 16:19; Admin Dose 650 MG; Start 02/04/17 at 08:30 ; Status Future Hold Docusate Sodium 100 mg 100 mg BID NGT Last administered on 02/18/17 20:39; Admin Dose 100 MG; Start 02/05/17 at 09:00 Fat Emulsion Intravenous 250 ml @ 10 mls/hr Q24H IV Last administered on 02/18 20:18; Admin Dose 10 MLS/HR; Start 02/05/17 at 20:00 Total Parenteral Nutrition (Tpn) 1,000 ml @ 70 mls/hr [id number] IV Last administered on 02/18/17 09:02; Admin Dose 70 MLS/HR; Start 02/05/17 at 20:00 Furosemide (Lasix) 20 mg DAILY IV Last administered on 02/13/17 09:33; Admin Dose 20 MG; Start 02/07/17 at 11:00; Status Future Hold Diagnostic Test (Pha) (Accu-Chek) 1 ea Q8 XX Last administered on 02/18/17 13 :21; Admin Dose 1 EA; Start 02/07/17 at 22:00 Lorazepam (Ativan) 1 mg Q2 PRN IV AGITATION Last administered on 02/18/17 10: 56; Admin Dose 1 MG; Start 02/10/17 at 12:30 Ondansetron HCl (Zofran Inj) 4 mg Q6H PRN IV NAUSEA AND/OR VOMITING Last administered on 02/17/17 13:09; Admin Dose 4 MG; Start 02/13/17 at 14:30 Heparin Sodium (Porcine) (Heparin (5000 Units/0.5 ml)) 5,000 unit BID SC Last administered on 02/18/17 20:40; Admin Dose 5,000 UNIT; Start 02/17/17 at 21: 00 RAUL EUCEDA MD Feb 18, 2017 20:56
[2017-02-19] VITALS (15 sets, daily range): BP systolic 109–146; BP diastolic 59–100; PULSE 81–92; RESP 17–20
[2017-02-19] MEDS: TPN 1,000 ML IV SCH ×2 (00:51→12:42)
[2017-02-19] MEDS: HYDROmorphONE 0.5 MG/0.5 ML SYG IV PRN ×4 (03:10→21:06)
[2017-02-19] MEDS: ACCU-CHEK XX SCH ×3 (06:00→22:00)
[2017-02-19 06:31] LABS: BASOPHILS % 0.1 % (0.0-2.0); EOSINOPHILS # 0.1 10^3/ul (0.0-0.5); EOSINOPHILS % 0.9 % (0.0-7.0); HEMATOCRIT 30.8 % (37.0-47.0); HEMOGLOBIN 9.5 g/dl (12.0-16.0); LYMPHOCYTES # 0.8 10^3/ul (0.8-2.9); LYMPHOCYTES % 5.5 % (15.0-51.0); MEAN CORPUSCULAR HEMOGLOBIN 27.5 pg (29.0-33.0); MEAN CORPUSCULAR HGB CONC 30.8 g/dl (32.0-37.0); MEAN PLATELET VOLUME 12.5 fl (7.4-10.4); MONOCYTE # 1.1 10^3/ul (0.3-0.9); MONOCYTES % 7.9 % (0.0-11.0); NEUTROPHIL # 11.6 10^3/ul (1.6-7.5); NEUTROPHILS % 84.5 % (39.0-77.0); NUCLEATED RED BLOOD CELLS% 0.2 /100WBC (0.0-0.0); PLATELET COUNT 688 10^3/UL (140-415); RED BLOOD COUNT 3.46 10^6/ul (4.20-5.40); RED CELL DISTRIBUTION WIDTH 18.6 % (11.5-14.5); WHITE BLOOD COUNT 13.7 10^3/ul (4.8-10.8)
[2017-02-19 06:51] LABS: CALCIUM 8.6 mg/dl (8.4-10.2); CREATININE 0.51 mg/dl (0.44-1.00); POTASSIUM 4.1 mmol/L (3.5-5.1)
[2017-02-19] MEDS: DOCUSATE SODIUM 10 MG/ML (10ML CUP) NGT SCH ×2 (08:23→21:06)
[2017-02-19] MEDS: POLYETHYLENE GLYCOL 17 GM PACKET PO SCH (08:23)
[2017-02-19] MEDS: TOLTERODINE (SR) 4 MG CAP PO SCH (08:25)
[2017-02-19] MEDS: HEPARIN 5,000 UNIT/0.5 ML VIAL SC SCH ×2 (08:31→23:02)
--- NOTE | 2017-02-19 11:27 | PN ---
Date/Time of Note Date/Time of Note DATE: 02/19/17 TIME: 11:14 Assessment/Plan VTE Prophylaxis VTE Prophylaxis Intervention: SCD's Lines/Catheters IV Catheter Type (from Nrsg): Central Line Central line still needed: Yes Urinary Cath still in place: Yes Reason Cath still needed: urinary retention Assessment/Plan Assessment/Plan 56 yo F with known stage 4 ovarian Ca admitted for abd pain from malignant ascites. sp para 10.19, sp ureteral stenting, sp debulking surgery on February 03. Hospitalization c/b delirium. #delirium: likely toxic/metabolic encephalopathy of multifactorial origin including but not limited to very poor/limited sleep x 4 weeks, pain medications , . Nothing about pt's current presentation suggests subclinical status epilepticus. No evidence of untreated infectious process. No electrolyte derangement noted on labs. Pt also getting multiple medications which can precipitate/aggravate delirium including but not limited to benzodiazepines ( ativan), opiates (morphine), anticholinergics (oxybutynin) -stop IV ativan, stop Oxybutynin -MRI brain ordered per heme/onc request -defer neurology evaluation pending MRI results #high grade serious ovarian Ca sp debulking 02.03 -pt remains on TPN per fiscal manager onc. Defer to fiscal manager onc to when PO diet can be advanced -pt, son, and patient's sister still deciding on where they want to obtain oncology care -cont pain meds #hydro from ovarian mass: sp bl jj stents, appreciate assistance #PEs: sp IVC filter placement awaiting input from [facility] as to when ATC can be resumed. pt will need treatment doses LMWH for at least 6 mos given VTE in setting of malignancy #subclinical hypothyroid: outpatient f/u #anemia: ACD v other. heme on consult dispo: PT/OT evals ongoing, will likely need SNF once TPN is weaned. Subjective 24 Hr Interval Summary Free Text/Dictation Spoke at length with patient and son this morning. Pt's mental status waxes and wanes. This morning was much calmer and able to respond to questions meaningfully and appropriately. Son and his aunt (pt's sister) thinking about which oncologist they would like to follow up with Exam/Review of Systems Vital Signs Vitals Vital Signs Date Time Temp Pulse Resp B/P Pulse Ox O2 Delivery O2 Flow Rate FiO2 02/19/17 10:00 98.6 104 18 132/83 98 11/16/17 08:00 Room Air 02/17/17 15:18 2.0 02/16/17 02:51 27 Intake and Output 02/18/17 02/18/17 02/19/17 15:00 23:00 07:00 Intake Total 350 ml 400 ml 1590 ml Output Total 1250 ml 1415 ml 2200 ml Balance -900 ml -1015 ml -610 ml Exam much calmer than yesterday no mrg lungs clear 1 abd drain still in place sen in place moves all extremities freely, no focal neurologic deficits noted labs reviewed Results Result Diagram: 02/19/1713 02/19/17 0613 Results 24 hrs Laboratory Tests Test 02/18/17 13:19 02/18/17 21:47 02/19/17 06:13 02/19/17 06:25 Bedside Glucose 105 101 89 White Blood Count 13.7 H Red Blood Count 3.46 L Hemoglobin 9.5 L Hematocrit 30.8 L Mean Corpuscular Volume 89.0 Mean Corpuscular Hemoglobin 27.5 L Mean Corpuscular Hemoglobin Concent 30.8 L Red Cell Distribution Width 18.6 H Platelet Count 688 H Mean Platelet Volume 12.5 H Neutrophils % 84.5 H Lymphocytes % 5.5 L Monocytes % 7.9 Eosinophils % 0.9 Basophils % 0.1 Nucleated Red Blood Cells % 0.2 H Neutrophils # 11.6 H Lymphocytes # 0.8 Monocytes # 1.1 H Eosinophils # 0.1 Basophils # 0.0 Nucleated Red Blood Cells # 0.0 Sodium Level 140 Potassium Level 4.1 Chloride Level 105 Carbon Dioxide Level 25 Anion Gap 14 Blood Urea Nitrogen 11 Creatinine 0.51 Glucose Level 99 Calcium Level 8.6 Medications Medications Current Medications Acetaminophen (Tylenol Tab) 650 mg Q6H PRN PO PAIN LEVEL 1-3 OR FEVER Last administered on 02/06/17 23:54; Admin Dose 650 MG; Start 01/22/17 at 16:00; Status Future Hold Docusate Sodium (Colace) 100 mg Q12H PRN PO CONSTIPATION; Start 01/22/17 at 16 :00 Magnesium Hydroxide (Milk Of Mag) 30 ml DAILY PRN PO CONSTIPATION Last administered on 01/31/17 07:38; Admin Dose 30 ML; Start 01/22/17 at 16:00 Bisacodyl (Dulcolax) 5 mg DAILY PRN PO CONSTIPATION Last administered on 05:07; Admin Dose 5 MG; Start 01/22/17 at 16:00 Polyethylene Glycol (Miralax) 17 gm DAILY PO Last administered on 02/09/17 09: 00; Admin Dose 17 GM; Start 01/26/17 at 15:30 Sodium Biphosphate/ Sodium Phosphate (Fleet Enema) 133 ml DAILY PRN [place] CONSTIPATION Last administered on 01/27/17 06:17; Admin Dose 133 ML; Start at 20:30 Tolterodine Tartrate (Detrol La) 4 mg DAILY PO Last administered on 02/19/17 08:25; Admin Dose 4 MG; Start 01/27/17 at 15:30 Morphine Sulfate 2 mg 2 mg Q2H PRN IV PAIN LEVEL 7-10 Last administered on 08:57; Admin Dose 2 MG; Start 01/28/17 at 14:00 Ondansetron HCl/ Dextrose (Zofran Inj/D5W) 54 ml @ 108 mls/hr Q6H PRN IV NAUSEA AND/OR VOMITING; Start 01/31/17 at 12:00 Hydromorphone HCl (Dilaudid) 1 mg Q2H PRN IV PAIN LEVEL 6-10 Last administered on 02/19/17 09:32; Admin Dose 1 MG; Start 02/02/17 at 11:30 Acetaminophen (Tylenol Liquid) 650 mg Q4H PRN GTB PAIN AND OR ELEVATED TEMP Last administered on 02/06/17 16:19; Admin Dose 650 MG; Start 02/04/17 at 08:30 ; Status Future Hold Docusate Sodium 100 mg 100 mg BID NGT Last administered on 02/18/17 20:39; Admin Dose 100 MG; Start 02/05/17 at 09:00 Fat Emulsion Intravenous 250 ml @ 10 mls/hr Q24H IV Last administered on 02/18 20:18; Admin Dose 10 MLS/HR; Start 02/05/17 at 20:00 Total Parenteral Nutrition (Tpn) 1,000 ml @ 70 mls/hr [id number] IV Last administered on 02/19/17 00:51; Admin Dose 70 MLS/HR; Start 11/2/17 at 20:00 Furosemide (Lasix) 20 mg DAILY IV Last administered on 02/13/17 09:33; Admin Dose 20 MG; Start 02/07/17 at 11:00; Status Future Hold Diagnostic Test (Pha) (Accu-Chek) 1 ea Q8 XX Last administered on 02/18/17 13 :21; Admin Dose 1 EA; Start 02/07/17 at 22:00 Lorazepam (Ativan) 1 mg Q2 PRN IV AGITATION Last administered on 02/18/17 10: 56; Admin Dose 1 MG; Start 02/10/17 at 12:30 Ondansetron HCl (Zofran Inj) 4 mg Q6H PRN IV NAUSEA AND/OR VOMITING Last administered on 02/17/17 13:09; Admin Dose 4 MG; Start 02/13/17 at 14:30 Heparin Sodium (Porcine) (Heparin (5000 Units/0.5 ml)) 5,000 unit BID SC Last administered on 02/19/17 08:31; Admin Dose 5,000 UNIT; Start 02/17/17 at 21: 00 DAYANARA BROWN MD Feb 19, 2017 11:24
[2017-02-19] MEDS: FUROSEMIDE 40 MG TAB PO SCH (12:42)
--- NOTE | 2017-02-19 14:31 | CONS ---
Date/Time of Note Date/Time of Note DATE: 02/19/17 TIME: 14:30 Consult Date/Type/Reason Admit Date/Time Jan 22, 2017 at 14:12 Initial Consult Date 02/03/17 Type of Consultation: ID Ordering Provider: DAYANARA BROWN MD Objective Vital Signs Date Time Temp Pulse Resp B/P Pulse Ox O2 Delivery O2 Flow Rate FiO2 02/19/17 14:00 98.6 98 18 134/96 96 02/19/17 08:00 Room Air 02/17/17 15:18 2.0 02/16/17 02:51 27 Intake and Output 02/18/17 02/18/17 02/19/17 15:00 23:00 07:00 Intake Total 350 ml 400 ml 1590 ml Output Total 1250 ml 1415 ml 2200 ml Balance -900 ml -1015 ml -610 ml Results/Medications Result Diagram: 02/19/17 0613 02/19/17 0613 Results 24 hrs Laboratory Tests Test 02/18/17 21:47 02/19/17 06:13 02/19/17 06:25 Bedside Glucose 101 89 White Blood Count 13.7 H Red Blood Count 3.46 L Hemoglobin 9.5 L Hematocrit 30.8 L Mean Corpuscular Volume 89.0 Mean Corpuscular Hemoglobin 27.5 L Mean Corpuscular Hemoglobin Concent 30.8 L Red Cell Distribution Width 18.6 H Platelet Count 688 H Mean Platelet Volume 12.5 H Neutrophils % 84.5 H Lymphocytes % 5.5 L Monocytes % 7.9 Eosinophils % 0.9 Basophils % 0.1 Nucleated Red Blood Cells % 0.2 H Neutrophils # 11.6 H Lymphocytes # 0.8 Monocytes # 1.1 H Eosinophils # 0.1 Basophils # 0.0 Nucleated Red Blood Cells # 0.0 Sodium Level 140 Potassium Level 4.1 Chloride Level 105 Carbon Dioxide Level 25 Anion Gap 14 Blood Urea Nitrogen 11 Creatinine 0.51 Glucose Level 99 Calcium Level 8.6 Medications Current Medications Acetaminophen (Tylenol Tab) 650 mg Q6H PRN PO PAIN LEVEL 1-3 OR FEVER Last administered on 02/06/17t 23:54; Admin Dose 650 MG; Start 01/22/17 at 16:00; Status Future Hold Docusate Sodium (Colace) 100 mg Q12H PRN PO CONSTIPATION; Start 01/22/17 at 16 :00 Magnesium Hydroxide (Milk Of Mag) 30 ml DAILY PRN PO CONSTIPATION Last administered on 01/31/17 07:38; Admin Dose 30 ML; Start 01/22/17 at 16:00 Bisacodyl (Dulcolax) 5 mg DAILY PRN PO CONSTIPATION Last administered on 05:07; Admin Dose 5 MG; Start 01/22/17 at 16:00 Polyethylene Glycol (Miralax) 17 gm DAILY PO Last administered on 02/09/17 09: 00; Admin Dose 17 GM; Start 01/26/17 at 15:30 Sodium Biphosphate/ Sodium Phosphate (Fleet Enema) 133 ml DAILY PRN [place] CONSTIPATION Last administered on 01/27/17 06:17; Admin Dose 133 ML; Start at 20:30 Morphine Sulfate 2 mg 2 mg Q2H PRN IV PAIN LEVEL 7-10 Last administered on 08:57; Admin Dose 2 MG; Start 01/28/17 at 14:00 Ondansetron HCl/ Dextrose (Zofran Inj/D5W) 54 ml @ 108 mls/hr Q6H PRN IV NAUSEA AND/OR VOMITING; Start 01/31/17 at 12:00 Hydromorphone HCl (Dilaudid) 1 mg Q2H PRN IV PAIN LEVEL 6-10 Last administered on 02/19/17 09:32; Admin Dose 1 MG; Start 02/02/17 at 11:30 Acetaminophen (Tylenol Liquid) 650 mg Q4H PRN GTB PAIN AND OR ELEVATED TEMP Last administered on 02/06/17 16:19; Admin Dose 650 MG; Start 02/04/17 at 08:30 ; Status Future Hold Docusate Sodium 100 mg 100 mg BID NGT Last administered on 02/18/17 20:39; Admin Dose 100 MG; Start 02/05/17 at 09:00 Fat Emulsion Intravenous 250 ml @ 10 mls/hr Q24H IV Last administered on 02/18 20:18; Admin Dose 10 MLS/HR; Start 02/05/17 at 20:00 Total Parenteral Nutrition (Tpn) 1,000 ml @ 70 mls/hr [id number] IV Last administered on 02/19/17 12:42; Admin Dose 70 MLS/HR; Start 02/05/17 at 20:00 Diagnostic Test (Pha) (Accu-Chek) 1 ea Q8 XX Last administered on 02/18/17 13 :21; Admin Dose 1 EA; Start 02/07/17 at 22:00 Ondansetron HCl (Zofran Inj) 4 mg Q6H PRN IV NAUSEA AND/OR VOMITING Last administered on 02/17/17 13:09; Admin Dose 4 MG; Start 02/13/17 at 14:30 Heparin Sodium (Porcine) (Heparin (5000 Units/0.5 ml)) 5,000 unit BID SC Last administered on 02/19/17 08:31; Admin Dose 5,000 UNIT; Start 02/17/17 at 21: 00 Furosemide (Lasix) 40 mg DAILY@06 PO Last administered on 02/19/17 12:42; Admin Dose 40 MG; Start 02/19/17 at 11:30 Assessment/Plan Chief Complaint/Hosp Course SUBJECTIVE: No events overnight. Patient is awake, still confused, looks better, no fevers, tolerates clears ANTIMICROBIALS: none INDWELLINGS: Triple lumen catheter JPs, Cullen catheter, R abd pigtail. PHYSICAL EXAMINATION: GENERAL: This is a wasted, chronically ill-appearing, 56-year-old woman who is awake, in no distress. HEENT: Head atraumatic, normocephalic. Sclerae icteric. Buccal mucosa dry. NECK: Supple. CHEST: Rise symmetrical. Breath sounds diminished at bases. HEART: S1, S2. ABDOMEN: Soft, bowel tones present, incision clean. EXTREMITIES: With trace edema. ASSESSMENT: 1. Systemic inflammatory response syndrome with persistent leukocytosis. 2. S/p CT-guided drainage of intraabdominal abscess on 02/10/17. 3. Bilateral pulmonary emboli, s/p IVC filter. 4. Metastatic ovarian cancer, status post tumor debulking on 02/02/2017. 5. Bilateral hydronephrosis, status post JJ stent placement on 01/24/2017. 6. Status post alpha hemolytic streptococci urinary tract infection. 7. Cachexia. 8. Encephalopathy. PLAN: Clinically improving, continue present care, repeat cx's prn DW staff Problems: CARLOS SOLIZ NP Feb 19, 2017 14:31
--- NOTE | 2017-02-19 17:04 | CONS ---
Date/Time of Note Date/Time of Note DATE: 02/19/17 TIME: 17:02 Assessment/Plan Assessment/Plan Chief Complaint/Hosp Course ADVANCED OVARIAN CANCER WITH MALIGNANT ASCITES AND PERITONEAL carcinomatosis- Stage IIIc - IV ovarian cancer Large conglomerate pelvic mass inseparable from the uterus, sigmoid colon and rectum containing clumps of calcification suspicious for calcified fibroids and containing cystic areas. Large amount of free intraperitoneal fluid measuring 25 HU with caking of the omentum compatible with carcinomatosis. Centralization of bowel without evidence of bowel obstruction. Moderately severe right hydronephrosis and hydroureter to the level of the pelvic mass. There is moderate left pelvocaliectasis without ureteral dilatation. The bladder is quite distended with urine. POST cystoscopy and insertion of bilateral JJ stents. PER DR ABRAMS-If she gets better and respond to treatment then later on in the future she will need the stents removed and may be replaced CT CHEST - EDOUARD, EXCEPT SMALL L PLEURAL EFFUSION CA 125- 337 POST debulking surgery PATH- [id number] High grade serous carcinoma. D/W SON- HE IS REFUSING CHEMO IVC filter ANEMIA, MICROCYTOSIS COMPLEX ANEMIA W-UP= + COMPONENT ACD DROP H/H POSTOP SERIAL H/H PRBC NEEDED PER STANDING ORDERS D/W RN LEUKOCYTOSIS REACTIVE, PARTIALLY 2 TO Splenectomy, partially 2 to infection CONFUSION NEURO EVAL MRI BRAIN PELVIC ABSCESS- POST DRAINAGE malignant ascites sp para 10.19. hydro AUR from ascites, sp ureteral stenting. ILEUS NG TPN Problems: Consultation Date/Type/Reason Admit Date/Time Jan 22, 2017 at 14:12 Initial Consult Date 01/27/17 Type of Consultation: [facility] Referring Provider: DAYANARA BROWN MD 24 HR Interval Summary Free Text/Dictation ALL NOTED MS- FLUCTUATING Exam/Review of Systems Vital Signs Vitals Vital Signs Date Time Temp Pulse Resp B/P Pulse Ox O2 Delivery O2 Flow Rate FiO2 02/19/17 16:00 98.8 100 20 126/88 94 02/19/17 08:00 Room Air 02/17/17 15:18 2.0 02/16/17 02:51 27 Intake and Output 02/18/17 02/18/17 02/19/17 15:00 23:00 07:00 Intake Total 350 ml 400 ml 1590 ml Output Total 1250 ml 1415 ml 2200 ml Balance -900 ml -1015 ml -610 ml Exam GENERAL: Chronically ill-appearing lady, CONFUSED, IN PAIN VITAL SIGNS: per chart NECK: Supple. No JVD or lymphadenopathy. CARDIAC EXAM: S1, S2. No added sounds or murmurs. CHEST: Bilateral rales. ABDOMEN: Soft, nontender. No guarding or rebound. EXTREMITIES: No cyanosis, clubbing or edema. NEUROLOGIC: Generalized weakness. Results Result Diagram: 02/19/1761202/19/17 06 Results 24 hrs Laboratory Tests Test 02/18/17 21:47 02/19/17 06:13 02/19/17 06:25 02/19/17 14:37 Bedside Glucose 101 89 91 White Blood Count 13.7 H Red Blood Count 3.46 L Hemoglobin 9.5 L Hematocrit 30.8 L Mean Corpuscular Volume 89.0 Mean Corpuscular Hemoglobin 27.5 L Mean Corpuscular Hemoglobin Concent 30.8 L Red Cell Distribution Width 18.6 H Platelet Count 688 H Mean Platelet Volume 12.5 H Neutrophils % 84.5 H Lymphocytes % 5.5 L Monocytes % 7.9 Eosinophils % 0.9 Basophils % 0.1 Nucleated Red Blood Cells % 0.2 H Neutrophils # 11.6 H Lymphocytes # 0.8 Monocytes # 1.1 H Eosinophils # 0.1 Basophils # 0.0 Nucleated Red Blood Cells # 0.0 Sodium Level 140 Potassium Level 4.1 Chloride Level 105 Carbon Dioxide Level 25 Anion Gap 14 Blood Urea Nitrogen 11 Creatinine 0.51 Glucose Level 99 Calcium Level 8.6 Medications Medications Current Medications Acetaminophen (Tylenol Tab) 650 mg Q6H PRN PO PAIN LEVEL 1-3 OR FEVER Last administered on 02/06/17 23:54; Admin Dose 650 MG; Start 01/22/17 at 16:00; Status Future Hold Docusate Sodium (Colace) 100 mg Q12H PRN PO CONSTIPATION; Start 01/22/17 at 16 :00 Magnesium Hydroxide (Milk Of Mag) 30 ml DAILY PRN PO CONSTIPATION Last administered on 01/31/17 07:38; Admin Dose 30 ML; Start 01/22/17 at 16:00 Bisacodyl (Dulcolax) 5 mg DAILY PRN PO CONSTIPATION Last administered on 05:07; Admin Dose 5 MG; Start 01/22/17 at 16:00 Polyethylene Glycol (Miralax) 17 gm DAILY PO Last administered on 02/09/17 09: 00; Admin Dose 17 GM; Start 01/26/17 at 15:30 Sodium Biphosphate/ Sodium Phosphate (Fleet Enema) 133 ml DAILY PRN [place] CONSTIPATION Last administered on 01/27/17 06:17; Admin Dose 133 ML; Start at 20:30 Morphine Sulfate 2 mg 2 mg Q2H PRN IV PAIN LEVEL 7-10 Last administered on 08:57; Admin Dose 2 MG; Start 01/28/17 at 14:00 Ondansetron HCl/ Dextrose (Zofran Inj/D5W) 54 ml @ 108 mls/hr Q6H PRN IV NAUSEA AND/OR VOMITING; Start 01/31/17 at 12:00 Hydromorphone HCl (Dilaudid) 1 mg Q2H PRN IV PAIN LEVEL 6-10 Last administered on 02/19/17 16:13; Admin Dose 1 MG; Start 02/02/17 at 11:30 Acetaminophen (Tylenol Liquid) 650 mg Q4H PRN GTB PAIN AND OR ELEVATED TEMP Last administered on 02/06/17 16:19; Admin Dose 650 MG; Start 02/04/17 at 08:30 ; Status Future Hold Docusate Sodium 100 mg 100 mg BID NGT Last administered on 02/18/17 20:39; Admin Dose 100 MG; Start 02/05/17 at 09:00 Fat Emulsion Intravenous 250 ml @ 10 mls/hr Q24H IV Last administered on 02/18 20:18; Admin Dose 10 MLS/HR; Start 02/05/17 at 20:00 Total Parenteral Nutrition (Tpn) 1,000 ml @ 70 mls/hr [id number] IV Last administered on 02/19/17 12:42; Admin Dose 70 MLS/HR; Start 02/05/17 at 20:00 Diagnostic Test (Pha) (Accu-Chek) 1 ea Q8 XX Last administered on 02/19/17 14 :37; Admin Dose 1 EA; Start 02/07/17 at 22:00 Ondansetron HCl (Zofran Inj) 4 mg Q6H PRN IV NAUSEA AND/OR VOMITING Last administered on 02/17/17 13:09; Admin Dose 4 MG; Start 02/13/17 at 14:30 Heparin Sodium (Porcine) (Heparin (5000 Units/0.5 ml)) 5,000 unit BID SC Last administered on 02/19/17 08:31; Admin Dose 5,000 UNIT; Start 02/17/17 at 21: 00 Furosemide (Lasix) 40 mg DAILY@06 PO Last administered on 02/19/17 12:42; Admin Dose 40 MG; Start 02/19/17 at 11:30 RAMIREZ YBARRA MD Feb 19, 2017 17:04
--- NOTE | 2017-02-19 17:37 | RADRPT ---
PROCEDURE: MRI Brain without contrast. CLINICAL INDICATION: Altered mental status. TECHNIQUE: An MRI of the brain was performed utilizing the following sequences: Sagittal and axial T1 weighted, axial T2 weighted, axial diffusion weighted with ADC mapping, coronal GRE, and axial F LAIR. COMPARISON: None. FINDINGS: Multiple images are degraded by motion. No diffusion weighted abnormalities are seen to suggest the presence of acute ischemia or recent inf arct. No hypointense signal abnormalities are seen on the GRE images to suggest the presence of blo od degradation products. There is no evidence of intracranial hemorrhage, mass effect, or midline s hift. No extra-axial fluid collections are seen. The ventricles and sulci are mildly enlarged indica tive of volume loss. Partially empty sella is noted. There are mild to moderate scattered foci of T2 FLAIR hyperintensity in the periventricular, deep, a nd subcortical white matter, which are nonspecific in etiology but likely reflect chronic small vess el ischemic changes. No abnormal intracranial vascular flow void is noted. The visualized paranasal sinuses are grossly clear. IMPRESSION: Suboptimal motion degraded study. 1. No acute intracranial hemorrhage, infarction or mass. 2. Mild to moderate chronic small vessel ischemic changes. 3. Partially empty sella turcica. 4. Mild generalized cerebral volume loss. RPTAT: HH .Elie Guerrero MD, Date Time Electronically viewed and signed by .Elie Guerrero MD, MD on 02/19/2017 17:36 .N/
[2017-02-19] MEDS ORDERED: PIPER-TAZO 3.375 GM IV (PMX) 50 ML IVPB STA (18:34)
[2017-02-19] MEDS ORDERED: VANCOMYCIN IV PER PHARMACY XX STA (18:34)
[2017-02-19] MEDS: FAT EMULSION 20% 250 ML IV SCH (19:55)
[2017-02-19] MEDS: VANCOMYCIN 1.5 GM in SOD CHLORIDE 0.9% 250 ML IVPB SCH (21:03)
[2017-02-19] MEDS ORDERED: CASPOFUNGIN 70 MG in NS 250 ML IVPB ONE (22:30)
--- NOTE | 2017-02-19 22:59 | RADRPT ---
PROCEDURE: XR Chest. CLINICAL INDICATION: Fever, tachycardia. TECHNIQUE: PA and Lateral views of the chest were obtained. COMPARISON: None. FINDINGS: Right-sided central venous catheter tip overlying the SVC. Right-sided drainage catheter overlying t he liver. An indeterminate tubular structure is seen overlying the left lung base. The heart is normal in size. Mild pulmonary vascular congestion is present. There is a small left pleural effusion and/or subsegm ental atelectasis. A left basilar pneumonia cannot be excluded. The osseous structures are grossly unremarkable. IMPRESSION: 1. Mild pulmonary vascular congestion with a small left pleural effusion and/or subsegmental atelec tasis. A left basilar pneumonia cannot be excluded. 2. Indeterminate tubular structure overlying the left lung base. RPTAT:AAJJ Physician Vasiliy Date Time Electronically viewed and signed by Lindsay Brink Physician on 02/19/2017 22:59 QL/
[2017-02-20] VITALS (7 sets, daily range): BP systolic 94–136; BP diastolic 53–80; RESP 18–20
[2017-02-20] MEDS: PIPER-TAZO 3.375 GM IV (PMX) 50 ML IVPB SCH ×4 (00:24→21:52)
[2017-02-20] MEDS: HYDROmorphONE 0.5 MG/0.5 ML SYG IV PRN ×4 (03:49→22:14)
[2017-02-20] MEDS: TPN 1,000 ML IV SCH ×2 (05:06→18:18)
[2017-02-20] MEDS: FUROSEMIDE 40 MG TAB PO SCH (05:53)
[2017-02-20] MEDS: ACCU-CHEK XX SCH ×3 (06:00→22:20)
[2017-02-20 06:17] LABS: ABNORMAL IP MESSAGE 1; BASOPHIL # 0.1 10^3/ul (0.0-0.1); BASOPHILS % 0.2 % (0.0-2.0); EOSINOPHILS % 0.2 % (0.0-7.0); HEMATOCRIT 27.7 % (37.0-47.0); HEMOGLOBIN 8.7 g/dl (12.0-16.0); LYMPHOCYTES # 0.5 10^3/ul (0.8-2.9); LYMPHOCYTES % 2.3 % (15.0-51.0); MEAN CORPUSCULAR HEMOGLOBIN 27.5 pg (29.0-33.0); MEAN CORPUSCULAR HGB CONC 31.4 g/dl (32.0-37.0); MEAN CORPUSCULAR VOLUME 87.7 fl (82.0-101.0); MEAN PLATELET VOLUME 12.6 fl (7.4-10.4); MONOCYTE # 0.6 10^3/ul (0.3-0.9); MONOCYTES % 2.9 % (0.0-11.0); NEUTROPHILS % 93.4 % (39.0-77.0); NUCLEATED RED BLOOD CELLS% 0.1 /100WBC (0.0-0.0); PLATELET COUNT 423 10^3/UL (140-415); RED BLOOD COUNT 3.16 10^6/ul (4.20-5.40); RED CELL DISTRIBUTION WIDTH 18.2 % (11.5-14.5); WHITE BLOOD COUNT 20.4 10^3/ul (4.8-10.8)
[2017-02-20 06:47] LABS: CALCIUM 8.2 mg/dl (8.4-10.2); CREATININE 0.5 mg/dl (0.44-1.00); POTASSIUM 3.7 mmol/L (3.5-5.1)
[2017-02-20 07:15] LABS: POSITIVE DIFF @See below
[2017-02-20] MEDS ORDERED: VANCOMYCIN IV PER PHARMACY XX SCH (07:30)
[2017-02-20] MEDS: VANCOMYCIN 1.5 GM in SOD CHLORIDE 0.9% 250 ML IVPB SCH ×2 (08:31→23:38)
[2017-02-20] MEDS: morphine 2 MG INJ IV PRN (08:32)
[2017-02-20] MEDS: POLYETHYLENE GLYCOL 17 GM PACKET PO SCH (08:36)
[2017-02-20] MEDS: DOCUSATE SODIUM 10 MG/ML (10ML CUP) NGT SCH ×2 (08:37→21:00)
[2017-02-20] MEDS: HEPARIN 5,000 UNIT/0.5 ML VIAL SC SCH ×2 (08:39→22:10)
--- NOTE | 2017-02-20 13:05 | CONS ---
Date/Time of Note Date/Time of Note DATE: 02/20/17 TIME: 13:00 Assessment/Plan Assessment/Plan Chief Complaint/Hosp Course 56 yo female with advanced ovarian cancer with encephalopathy. MRI Brain without contrast was done shows no acute process Recommend Contrast imaging to evaluate for carcinomatous meningitis mental status improved today per staff, avoid overly sedating meds minimize pain meds Problems: Consultation Date/Type/Reason Admit Date/Time Jan 22, 2017 at 14:12 Date of Consultation: Feb 20, 2017 Type of Consultation: Neurology Reason for Consultation encephalopathy Hx of Present Illness 56 year old female with advanced ovarian cancer admitted with malignant ascites and peritoneal carcinomatosis admitted with anemia, abscess s/p drainage. She was noted to be confused yesterday, MRI Brain showed no acute process. Mental status is notably improved today. Constitutional: no complaints, other (Patient complaining of abdominal pain she has been taking the GoLYTELY in preparation for her surgery tomorrow by Dr. Ramirez) Eyes: no complaints ENT: no complaints Respiratory: no complaints Cardiovascular: no complaints Gastrointestinal: pain Genitourinary: other (Cullen catheter in place and draining clear dark urine) Musculoskeletal: no complaints Neurologic: other (Patient is having hard time remembering. She remembers me talking to her about replacing the JJ stents in the future but she does not remember that she does have the JJ stents) Endocrine: no complaints Psychological: anxiety Past Surgical History Past Surgical Hx: other (Surgery on her leg from a fractured bone) Social History Alcohol Use: occasionally Smoking Status: Former smoker Exam/Review of Systems Vital Signs Vitals Vital Signs Date Time Temp Pulse Resp B/P Pulse Ox O2 Delivery O2 Flow Rate FiO2 02/20/17 08:00 98.3 107 18 100/60 100 02/19/17 08:00 Room Air 02/17/17 15:18 2.0 Intake and Output 02/19/17 02/19/17 02/20/17 15:00 23:00 07:00 Intake Total 650 ml 760 ml 1540 ml Output Total 800 ml 2930 ml Balance 650 ml -40 ml -1390 ml Exam Constitutional: alert, frail 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 intact, DTR's symmetric (poor attention on FTN testing , oriented to name place and says year is 2017), nl mental status, nl speech, nl strength Results Result Diagram: 02/20/17 0553 02/20/17 0553 Results 24 hrs Laboratory Tests Test 02/19/17 14:37 02/19/17 22:11 02/19/17 22:41 02/20/17 05:53 Bedside Glucose 91 112 Activated Partial Thromboplast Time 29.5 White Blood Count 20.4 #H Red Blood Count 3.16 L Hemoglobin 8.7 L Hematocrit 27.7 L Mean Corpuscular Volume 87.7 Mean Corpuscular Hemoglobin 27.5 L Mean Corpuscular Hemoglobin Concent 31.4 L Red Cell Distribution Width 18.2 H Platelet Count 423 #H Mean Platelet Volume 12.6 H Neutrophils % 93.4 H Lymphocytes % 2.3 L Monocytes % 2.9 Eosinophils % 0.2 Basophils % 0.2 Nucleated Red Blood Cells % 0.1 H Neutrophils # 19.0 H Lymphocytes # 0.5 L Monocytes # 0.6 Eosinophils # 0.0 Basophils # 0.1 Nucleated Red Blood Cells # 0.0 Sodium Level 138 Potassium Level 3.7 Chloride Level 105 Carbon Dioxide Level 23 Anion Gap 14 Blood Urea Nitrogen 12 Creatinine 0.50 Glucose Level 98 Calcium Level 8.2 L Thyroid Stimulating Hormone (TSH) 4.180 Test 02/20/17 06:03 Bedside Glucose 100 Medications Medications Current Medications Acetaminophen (Tylenol Tab) 650 mg Q6H PRN PO PAIN LEVEL 1-3 OR FEVER Last administered on 02/06/17 23:54; Admin Dose 650 MG; Start 01/22/17 at 16:00; Status Future Hold Docusate Sodium (Colace) 100 mg Q12H PRN PO CONSTIPATION; Start 01/22/17 at 16 :00 Magnesium Hydroxide (Milk Of Mag) 30 ml DAILY PRN PO CONSTIPATION Last administered on 01/31/17 07:38; Admin Dose 30 ML; Start 01/22/17 at 16:00 Bisacodyl (Dulcolax) 5 mg DAILY PRN PO CONSTIPATION Last administered on 05:07; Admin Dose 5 MG; Start 01/22/17 at 16:00 Polyethylene Glycol (Miralax) 17 gm DAILY PO Last administered on 02/20/17 08 :36; Admin Dose 17 GM; Start 01/26/17 at 15:30 Sodium Biphosphate/ Sodium Phosphate (Fleet Enema) 133 ml DAILY PRN [place] CONSTIPATION Last administered on 01/27/17 06:17; Admin Dose 133 ML; Start at 20:30 Morphine Sulfate 2 mg 2 mg Q2H PRN IV PAIN LEVEL 7-10 Last administered on 08:32; Admin Dose 2 MG; Start 01/28/17 at 14:00 Ondansetron HCl/ Dextrose (Zofran Inj/D5W) 54 ml @ 108 mls/hr Q6H PRN IV NAUSEA AND/OR VOMITING; Start 01/31/17 at 12:00 Hydromorphone HCl (Dilaudid) 1 mg Q2H PRN IV PAIN LEVEL 6-10 Last administered on 02/20/17 10:22; Admin Dose 1 MG; Start 02/02/17 at 11:30 Acetaminophen (Tylenol Liquid) 650 mg Q4H PRN GTB PAIN AND OR ELEVATED TEMP Last administered on 02/06/17 16:19; Admin Dose 650 MG; Start 02/04/17 at 08:30 ; Status Future Hold Docusate Sodium 100 mg 100 mg BID NGT Last administered on 02/20/17 08:37; Admin Dose 100 MG; Start 02/05/17 at 09:00 Fat Emulsion Intravenous 250 ml @ 10 mls/hr Q24H IV Last administered on 02/19 19:55; Admin Dose 10 MLS/HR; Start 02/05/17 at 20:00 Total Parenteral Nutrition (Tpn) 1,000 ml @ 70 mls/hr [id number] IV Last administered on 02/20/17 05:06; Admin Dose 70 MLS/HR; Start 02/05/17 at 20:00 Diagnostic Test (Pha) (Accu-Chek) 1 ea Q8 XX Last administered on 02/19/17 14 :37; Admin Dose 1 EA; Start 02/07/17 at 22:00 Ondansetron HCl (Zofran Inj) 4 mg Q6H PRN IV NAUSEA AND/OR VOMITING Last administered on 02/17/17 13:09; Admin Dose 4 MG; Start 02/13/17 at 14:30 Heparin Sodium (Porcine) (Heparin (5000 Units/0.5 ml)) 5,000 unit BID SC Last administered on 02/20/17 08:39; Admin Dose 5,000 UNIT; Start 02/17/17 at 21: 00 Furosemide 40 mg 40 mg DAILY@06 PO Last administered on 02/20/17 05:53; Admin Dose 40 MG; Start 02/19/17 at 11:30 Vancomycin HCl 1.5 gm/Sodium Chloride 250 ml @ 83.333 mls/ hr Q12H IVPB Last administered on 02/20/17 08:31; Admin Dose 83.333 MLS/HR; Start 02/19/17 at 20:00 Piperacillin Sod/ Tazobactam Sod 50 ml @ 100 mls/hr Q8 IVPB Last administered on 02/20/17 05:47; Admin Dose 100 MLS/HR; Start 02/19/17 at 22:00 Caspofungin/ Sodium Chloride (Cancidas/NS) 250 ml @ 250 mls/hr Q24H IVPB ; Start 02/20/17 at 22:30 ERICA SCHWARTZ MD Feb 20, 2017 13:05
--- NOTE | 2017-02-20 13:16 | RADRPT ---
Vent Rate: 147 bpm RR Interval: 0 msec UT Interval: 134 msec QRS Duration: 60 msec QT Interval: 262 msec QTC Interval: 410 msec P-R-T [place]: 32 - 52 - 99 degrees Sinus tachycardia with fusion complexes Septal infarct , age undetermined Abnormal ECG Electronically Signed By: Manjit Hidalgo [id number]
--- NOTE | 2017-02-20 13:18 | PN ---
Date/Time of Note Date/Time of Note DATE: 02/20/17 TIME: 13:15 Assessment/Plan VTE Prophylaxis VTE Prophylaxis Intervention: SCD's Lines/Catheters IV Catheter Type (from Nrs): Central Line Central line still needed: No Urinary Cath still in place: Yes Reason Cath still needed: urinary retention Assessment/Plan Assessment/Plan 56 yo F with known stage 4 ovarian Ca admitted for abd pain from malignant ascites. sp para 10.19, sp ureteral stenting, sp debulking surgery on February 03. Hospitalization c/b delirium which is resolving. Now with sepsis. #sepsis: noted last night based on new fever. Blood cultures now growing out 2/ 2 GPCs -repeat cultures -cont vanc, zosyn. cont empiric antifungal pending further culture maturation -likely will need TTE tomorrow -CT imaging of abdomen per ID #delirium: likely toxic/metabolic encephalopathy of multifactorial origin including but not limited to very poor/limited sleep x 4 weeks, pain medications , . Nothing about pt's current presentation suggests subclinical status epilepticus. No evidence of untreated infectious process. No electrolyte derangement noted on labs. Pt also getting multiple medications which can precipitate/aggravate delirium including but not limited to benzodiazepines ( ativan), opiates (morphine), anticholinergics (oxybutynin) -stopped IV ativan, stopped Oxybutynin -MRI brain without contrast nl, contrast enhanced pending -neurology evaluation appears to have been ordered by one of the consultants. #high grade serious ovarian Ca sp debulking 02.03 -pt remains on TPN per early childhood special educator onc. Defer to early childhood special educator onc to when PO diet can be advanced -pt, son, and patient's sister still deciding on where they want to obtain oncology care -cont pain meds #hydro from ovarian mass: sp bl jj stents, appreciate assistance #PEs: sp IVC filter placement awaiting input from heme as to when ATC can be resumed. pt will need treatment doses LMWH for at least 6 mos given VTE in setting of malignancy #subclinical hypothyroid: outpatient f/u #anemia: ACD v other. heme on consult dispo: PT/OT evals ongoing, will likely need SNF once TPN is weaned. Exam/Review of Systems Vital Signs Vitals Vital Signs Date Time Temp Pulse Resp B/P Pulse Ox O2 Delivery O2 Flow Rate FiO2 02/20/17 08:00 98.3 107 18 100/60 100 02/19/17 08:00 Room Air 02/17/17 15:18 2.0 Intake and Output 02/19/17 02/19/17 02/20/17 15:00 23:00 07:00 Intake Total 650 ml 760 ml 1540 ml Output Total 800 ml 2930 ml Balance 650 ml -40 ml -1390 ml Results Result Diagram: 02/20/17 0553 02/20/17 0553 Results 24 hrs Laboratory Tests Test 02/19/17 14:37 02/19/17 22:11 02/19/17 22:41 02/20/17 05:53 Bedside Glucose 91 112 Activated Partial Thromboplast Time 29.5 White Blood Count 20.4 #H Red Blood Count 3.16 L Hemoglobin 8.7 L Hematocrit 27.7 L Mean Corpuscular Volume 87.7 Mean Corpuscular Hemoglobin 27.5 L Mean Corpuscular Hemoglobin Concent 31.4 L Red Cell Distribution Width 18.2 H Platelet Count 423 #H Mean Platelet Volume 12.6 H Neutrophils % 93.4 H Lymphocytes % 2.3 L Monocytes % 2.9 Eosinophils % 0.2 Basophils % 0.2 Nucleated Red Blood Cells % 0.1 H Neutrophils # 19.0 H Lymphocytes # 0.5 L Monocytes # 0.6 Eosinophils # 0.0 Basophils # 0.1 Nucleated Red Blood Cells # 0.0 Sodium Level 138 Potassium Level 3.7 Chloride Level 105 Carbon Dioxide Level 23 Anion Gap 14 Blood Urea Nitrogen 12 Creatinine 0.50 Glucose Level 98 Calcium Level 8.2 L Thyroid Stimulating Hormone (TSH) 4.180 Test 02/20/17 06:03 Bedside Glucose 100 Medications Medications Current Medications Acetaminophen (Tylenol Tab) 650 mg Q6H PRN PO PAIN LEVEL 1-3 OR FEVER Last administered on 02/06/17 23:54; Admin Dose 650 MG; Start 01/22/17 at 16:00; Status Future Hold Docusate Sodium (Colace) 100 mg Q12H PRN PO CONSTIPATION; Start 01/22/17 at 16 :00 Magnesium Hydroxide (Milk Of Mag) 30 ml DAILY PRN PO CONSTIPATION Last administered on 01/31/17 07:38; Admin Dose 30 ML; Start 01/22/17 at 16:00 Bisacodyl (Dulcolax) 5 mg DAILY PRN PO CONSTIPATION Last administered on 05:07; Admin Dose 5 MG; Start 01/22/17 at 16:00 Polyethylene Glycol (Miralax) 17 gm DAILY PO Last administered on 02/20/17 08 :36; Admin Dose 17 GM; Start 01/26/17 at 15:30 Sodium Biphosphate/ Sodium Phosphate (Fleet Enema) 133 ml DAILY PRN [place] CONSTIPATION Last administered on 01/27/17 06:17; Admin Dose 133 ML; Start at 20:30 Morphine Sulfate 2 mg 2 mg Q2H PRN IV PAIN LEVEL 7-10 Last administered on 08:32; Admin Dose 2 MG; Start 01/28/17 at 14:00 Ondansetron HCl/ Dextrose (Zofran Inj/D5W) 54 ml @ 108 mls/hr Q6H PRN IV NAUSEA AND/OR VOMITING; Start 01/31/17 at 12:00 Hydromorphone HCl (Dilaudid) 1 mg Q2H PRN IV PAIN LEVEL 6-10 Last administered on 02/20/17 10:22; Admin Dose 1 MG; Start 02/02/17 at 11:30 Acetaminophen (Tylenol Liquid) 650 mg Q4H PRN GTB PAIN AND OR ELEVATED TEMP Last administered on 02/06/17 16:19; Admin Dose 650 MG; Start 02/04/17 at 08:30 ; Status Future Hold Docusate Sodium 100 mg 100 mg BID NGT Last administered on 02/20/17 08:37; Admin Dose 100 MG; Start 02/05/17 at 09:00 Fat Emulsion Intravenous 250 ml @ 10 mls/hr Q24H IV Last administered on 02/19 19:55; Admin Dose 10 MLS/HR; Start 02/05/17 at 20:00 Total Parenteral Nutrition (Tpn) 1,000 ml @ 70 mls/hr [id number] IV Last administered on 02/20/17 05:06; Admin Dose 70 MLS/HR; Start 02/05/17 at 20:00 Diagnostic Test (Pha) (Accu-Chek) 1 ea Q8 XX Last administered on 02/19/17 14 :37; Admin Dose 1 EA; Start 02/07/17 at 22:00 Ondansetron HCl (Zofran Inj) 4 mg Q6H PRN IV NAUSEA AND/OR VOMITING Last administered on 02/17/17 13:09; Admin Dose 4 MG; Start 02/13/17 at 14:30 Heparin Sodium (Porcine) (Heparin (5000 Units/0.5 ml)) 5,000 unit BID SC Last administered on 02/20/17 08:39; Admin Dose 5,000 UNIT; Start 02/17/17 at 21: 00 Furosemide 40 mg 40 mg DAILY@06 PO Last administered on 02/20/17 05:53; Admin Dose 40 MG; Start 02/19/17 at 11:30 Vancomycin HCl 1.5 gm/Sodium Chloride 250 ml @ 83.333 mls/ hr Q12H IVPB Last administered on 02/20/17 08:31; Admin Dose 83.333 MLS/HR; Start 02/19/17 at 20:00 Piperacillin Sod/ Tazobactam Sod 50 ml @ 100 mls/hr Q8 IVPB Last administered on 02/20/17 05:47; Admin Dose 100 MLS/HR; Start 02/19/17 at 22:00 Caspofungin/ Sodium Chloride (Cancidas/NS) 250 ml @ 250 mls/hr Q24H IVPB ; Start 02/20/17 at 22:30 DAYANARA BROWN MD Feb 20, 2017 13:18
[2017-02-20] MEDS ORDERED: LIDOCAINE 1% (MPF) 5 ML VIAL SC ONE (13:30)
--- NOTE | 2017-02-20 14:44 | PN ---
Date/Time of Note Date/Time of Note DATE: 02/20/17 TIME: 14:33 Assessment/Plan VTE Prophylaxis VTE Prophylaxis Intervention: heparin Lines/Catheters IV Catheter Type (from Nrs): Central Line Central line still needed: Yes Urinary Cath still in place: Yes Reason Cath still needed: other (indicate) Assessment/Plan Chief Complaint/Hosp Course Stage IIIc - IV ovarian cancer Problems: Assessment/Plan A- clinically improved and able to understand approaching her preop status. NOTE : She confirmed that SHE DOES AGREE TO CHEMO SOON POSTOP POSSIBLE TO INCREASE CHANCES TO BENEFIT RAPIDLY POSSIBLE AND RECALLED DISCUSSION BEFORE SURGERY. NOT CLEAR WHY SOME FAMILY HAD OTHER OPINION OCCURRED TO HER. Plan- Continue adv diet and mobilize and possible chemo 2-4 days. Discuss with ID. Subjective 24 Hr Interval Summary Free Text/Dictation Recognized me entirely and indicated + flatus and with less pain. Entirely recalled are preop discussion. Exam/Review of Systems Vital Signs Vitals Vital Signs Date Time Temp Pulse Resp B/P Pulse Ox O2 Delivery O2 Flow Rate FiO2 02/20/17 08:00 98.3 107 18 100/60 100 02/19/17 08:00 Room Air 02/17/17 15:18 2.0 Intake and Output 02/19/17 02/19/17 02/20/17 15:00 23:00 07:00 Intake Total 650 ml 760 ml 1540 ml Output Total 800 ml 2930 ml Balance 650 ml -40 ml -1390 ml Exam Resp- clear CVS- NSR Abd- Softer and less general tender and less distension Ext- NT minimal edema Results Result Diagram: 02/20/17 0553 02/20/17 0553 Results 24 hrs Laboratory Tests Test 02/19/17 14:37 02/19/17 22:11 02/19/17 22:41 02/20/17 05:53 Bedside Glucose 91 112 Activated Partial Thromboplast Time 29.5 White Blood Count 20.4 #H Red Blood Count 3.16 L Hemoglobin 8.7 L Hematocrit 27.7 L Mean Corpuscular Volume 87.7 Mean Corpuscular Hemoglobin 27.5 L Mean Corpuscular Hemoglobin Concent 31.4 L Red Cell Distribution Width 18.2 H Platelet Count 423 #H Mean Platelet Volume 12.6 H Neutrophils % 93.4 H Lymphocytes % 2.3 L Monocytes % 2.9 Eosinophils % 0.2 Basophils % 0.2 Nucleated Red Blood Cells % 0.1 H Neutrophils # 19.0 H Lymphocytes # 0.5 L Monocytes # 0.6 Eosinophils # 0.0 Basophils # 0.1 Nucleated Red Blood Cells # 0.0 Sodium Level 138 Potassium Level 3.7 Chloride Level 105 Carbon Dioxide Level 23 Anion Gap 14 Blood Urea Nitrogen 12 Creatinine 0.50 Glucose Level 98 Calcium Level 8.2 L Thyroid Stimulating Hormone (TSH) 4.180 Test 02/20/17 06:03 Bedside Glucose 100 Medications Medications Current Medications Acetaminophen (Tylenol Tab) 650 mg Q6H PRN PO PAIN LEVEL 1-3 OR FEVER Last administered on 02/06/17 23:54; Admin Dose 650 MG; Start 01/22/17 at 16:00; Status Future Hold Docusate Sodium (Colace) 100 mg Q12H PRN PO CONSTIPATION; Start 01/22/17 at 16 :00 Magnesium Hydroxide (Milk Of Mag) 30 ml DAILY PRN PO CONSTIPATION Last administered on 01/31/17 07:38; Admin Dose 30 ML; Start 01/22/17 at 16:00 Bisacodyl (Dulcolax) 5 mg DAILY PRN PO CONSTIPATION Last administered on 05:07; Admin Dose 5 MG; Start 01/22/17 at 16:00 Polyethylene Glycol (Miralax) 17 gm DAILY PO Last administered on 02/20/17 08 :36; Admin Dose 17 GM; Start 01/26/17 at 15:30 Sodium Biphosphate/ Sodium Phosphate (Fleet Enema) 133 ml DAILY PRN [place] CONSTIPATION Last administered on 01/27/17 06:17; Admin Dose 133 ML; Start at 20:30 Morphine Sulfate 2 mg 2 mg Q2H PRN IV PAIN LEVEL 7-10 Last administered on 08:32; Admin Dose 2 MG; Start 01/28/17 at 14:00 Ondansetron HCl/ Dextrose (Zofran Inj/D5W) 54 ml @ 108 mls/hr Q6H PRN IV NAUSEA AND/OR VOMITING; Start 01/31/17 at 12:00 Hydromorphone HCl (Dilaudid) 1 mg Q2H PRN IV PAIN LEVEL 6-10 Last administered on 02/20/17 10:22; Admin Dose 1 MG; Start 02/02/17 at 11:30 Acetaminophen (Tylenol Liquid) 650 mg Q4H PRN GTB PAIN AND OR ELEVATED TEMP Last administered on 02/06/17 16:19; Admin Dose 650 MG; Start 02/04/17 at 08:30 ; Status Future Hold Docusate Sodium 100 mg 100 mg BID NGT Last administered on 02/20/17 08:37; Admin Dose 100 MG; Start 02/05/17 at 09:00 Fat Emulsion Intravenous 250 ml @ 10 mls/hr Q24H IV Last administered on 02/19 19:55; Admin Dose 10 MLS/HR; Start 02/05/17 at 20:00 Total Parenteral Nutrition (Tpn) 1,000 ml @ 70 mls/hr [id number] IV Last administered on 02/20/17 05:06; Admin Dose 70 MLS/HR; Start 02/05/17 at 20:00 Diagnostic Test (Pha) (Accu-Chek) 1 ea Q8 XX Last administered on 02/19/17 14 :37; Admin Dose 1 EA; Start 02/07/17 at 22:00 Ondansetron HCl (Zofran Inj) 4 mg Q6H PRN IV NAUSEA AND/OR VOMITING Last administered on 02/17/17 13:09; Admin Dose 4 MG; Start 02/13/17 at 14:30 Heparin Sodium (Porcine) (Heparin (5000 Units/0.5 ml)) 5,000 unit BID SC Last administered on 02/20/17 08:39; Admin Dose 5,000 UNIT; Start 02/17/17 at 21: 00 Furosemide 40 mg 40 mg DAILY@06 PO Last administered on 02/20/17 05:53; Admin Dose 40 MG; Start 02/19/17 at 11:30 Vancomycin HCl 1.5 gm/Sodium Chloride 250 ml @ 83.333 mls/ hr Q12H IVPB Last administered on 02/20/17 08:31; Admin Dose 83.333 MLS/HR; Start 02/19/17 at 20:00 Piperacillin Sod/ Tazobactam Sod 50 ml @ 100 mls/hr Q8 IVPB Last administered on 02/20/17 05:47; Admin Dose 100 MLS/HR; Start 02/19/17 at 22:00 Caspofungin/ Sodium Chloride (Cancidas/NS) 250 ml @ 250 mls/hr Q24H IVPB ; Start 02/20/17 at 22:30 Miscellaneous Information (*Rx Drug Level Order Reminder*) VANCO TROUGH @ 0, 700 ON ... ONCE ONCE XX ; Start 02/21/17 at 07:00; Stop 02/21/17 at 07:01 RAUL EUCEDA MD Feb 20, 2017 14:43
--- NOTE | 2017-02-20 15:42 | PN ---
DATE: 02/20/2017 INFECTIOUS DISEASE PROGRESS NOTE SUBJECTIVE: Patient spiked high fever yesterday of 102.2. Cultures were sent. She is currently on broad spectrum antibiotics with Zosyn, vancomycin and Cancidas, blood culture growing gram-positive cocci in pairs and clusters. INDWELLINGS: She has right IJ triple-lumen catheter, JPs and abdominal drainage catheter. LABORATORY: WBC today 20.4, H and H 8.7 and 27.7, platelets 423, neutrophils 93.4, BUN 12, creatini ne 0.50. DIAGNOSTICS: MRI of the brain yesterday revealed no acute intracranial hemorrhage, infarction or ma ss. Chest x-ray revealed mild pulmonary congestion, questionable left basilar pneumonia. PHYSICAL EXAMINATION: GENERAL: This is a cachectic, wasted, middle-aged woman who is awake, follows commands and in no distress. HEENT: Head atraumatic, normocephalic. Sclerae anicteric. Buccal mucosa dry. NECK: Supple. CHEST: Rise symmetrical. Breath sounds diminished at bases. HEART: S1, S2. ABDOMEN: Soft. Bowel sounds present. EXTREMITIES: No cyanosis or edema. ASSESSMENT: 1. Sepsis with bacteremia, rule out line sepsis, rule out intraabdominal pathology, possibly second karol to pneumonia. 2. Left basilar pneumonia. 3. Metastatic ovarian cancer, status post tumor debulking on 02/02/2017. 4. History of alpha hemolytic streptococcus urinary tract infection on admission. 5. Cachexia. 6. Status post CT-guided drainage of intra-abdominal abscess on 02/10/2017. PLAN: The patient is clinically stable, covered with broad spectrum antibiotics. Final cultures ar e pending. We are going to send urine culture as well. We will observe her on current regimen and consider triple-lumen catheter discontinuation. If leukocytosis persists, we may order CT of the ab domen and pelvis. Dictated By: [facility] PATIENT CARE TECHNICIAN for DEONDRE JAMISON MD NI/NTS Conf#: [id number] DID#: [id number] CC: DAYANARA BROWN MD;*EndCC*
--- NOTE | 2017-02-20 18:56 | CONS ---
Date/Time of Note Date/Time of Note DATE: 02/20/17 TIME: 18:56 Assessment/Plan Assessment/Plan Chief Complaint/Hosp Course ADVANCED OVARIAN CANCER WITH MALIGNANT ASCITES AND PERITONEAL carcinomatosis- Stage IIIc - IV ovarian cancer Large conglomerate pelvic mass inseparable from the uterus, sigmoid colon and rectum containing clumps of calcification suspicious for calcified fibroids and containing cystic areas. Large amount of free intraperitoneal fluid measuring 25 HU with caking of the omentum compatible with carcinomatosis. Centralization of bowel without evidence of bowel obstruction. Moderately severe right hydronephrosis and hydroureter to the level of the pelvic mass. There is moderate left pelvocaliectasis without ureteral dilatation. The bladder is quite distended with urine. POST cystoscopy and insertion of bilateral JJ stents. PER DR ABRAMS-If she gets better and respond to treatment then later on in the future she will need the stents removed and may be replaced CT CHEST - EDOUARD, EXCEPT SMALL L PLEURAL EFFUSION CA 125- 337 POST debulking surgery PATH- [id number] High grade serous carcinoma. D/W SON- HE IS REFUSING CHEMO IVC filter ANEMIA, MICROCYTOSIS COMPLEX ANEMIA W-UP= + COMPONENT ACD DROP H/H POSTOP SERIAL H/H PRBC NEEDED PER STANDING ORDERS D/W RN LEUKOCYTOSIS REACTIVE, PARTIALLY 2 TO Splenectomy, partially 2 to infection CONFUSION NEURO F-UP MRI BRAIN- NO METS PELVIC ABSCESS- POST DRAINAGE malignant ascites sp para 10.19. hydro AUR from ascites, sp ureteral stenting. ILEUS NG TPN Problems: Consultation Date/Type/Reason Admit Date/Time Jan 22, 2017 at 14:12 Initial Consult Date 01/27/17 Type of Consultation: [facility] Referring Provider: DAYANARA BROWN MD 24 HR Interval Summary Free Text/Dictation MS- IMPROVED TODAY NEURO EVAL - REQUESTED Exam/Review of Systems Vital Signs Vitals Vital Signs Date Time Temp Pulse Resp B/P Pulse Ox O2 Delivery O2 Flow Rate FiO2 02/20/17 14:00 99.8 121 20 133/61 94 02/19/17 08:00 Room Air 02/17/17 15:18 2.0 Intake and Output 02/19/17 02/19/17 02/20/17 14:59 22:59 06:59 Intake Total 650 ml 760 ml 1540 ml Output Total 800 ml 2930 ml Balance 650 ml -40 ml -1390 ml Exam GENERAL: Chronically ill-appearing lady, CONFUSED, NOT IN PAIN VITAL SIGNS: per chart NECK: Supple. No JVD or lymphadenopathy. CARDIAC EXAM: S1, S2. No added sounds or murmurs. CHEST: Bilateral rales. ABDOMEN: Soft, nontender. No guarding or rebound. EXTREMITIES: No cyanosis, clubbing or edema. NEUROLOGIC: Generalized weakness. No focal deficits. Results Result Diagram: 02/20/17 0553 02/20/17 0553 Results 24 hrs Laboratory Tests Test 02/19/17 22:11 02/19/17 22:41 02/20/17 05:53 02/20/17 06:03 Activated Partial Thromboplast Time 29.5 Bedside Glucose 112 100 White Blood Count 20.4 #H Red Blood Count 3.16 L Hemoglobin 8.7 L Hematocrit 27.7 L Mean Corpuscular Volume 87.7 Mean Corpuscular Hemoglobin 27.5 L Mean Corpuscular Hemoglobin Concent 31.4 L Red Cell Distribution Width 18.2 H Platelet Count 423 #H Mean Platelet Volume 12.6 H Neutrophils % 93.4 H Lymphocytes % 2.3 L Monocytes % 2.9 Eosinophils % 0.2 Basophils % 0.2 Nucleated Red Blood Cells % 0.1 H Neutrophils # 19.0 H Lymphocytes # 0.5 L Monocytes # 0.6 Eosinophils # 0.0 Basophils # 0.1 Nucleated Red Blood Cells # 0.0 Sodium Level 138 Potassium Level 3.7 Chloride Level 105 Carbon Dioxide Level 23 Anion Gap 14 Blood Urea Nitrogen 12 Creatinine 0.50 Glucose Level 98 Calcium Level 8.2 L Thyroid Stimulating Hormone (TSH) 4.180 Test 02/20/17 15:41 Bedside Glucose 120 Medications Medications Current Medications Acetaminophen (Tylenol Tab) 650 mg Q6H PRN PO PAIN LEVEL 1-3 OR FEVER Last administered on 02/06/17 23:54; Admin Dose 650 MG; Start 01/22/17 at 16:00; Status Future Hold Docusate Sodium (Colace) 100 mg Q12H PRN PO CONSTIPATION; Start 01/22/17 at 16 :00 Magnesium Hydroxide (Milk Of Mag) 30 ml DAILY PRN PO CONSTIPATION Last administered on 01/31/17 07:38; Admin Dose 30 ML; Start 01/22/17 at 16:00 Bisacodyl (Dulcolax) 5 mg DAILY PRN PO CONSTIPATION Last administered on 05:07; Admin Dose 5 MG; Start 01/22/17 at 16:00 Polyethylene Glycol (Miralax) 17 gm DAILY PO Last administered on 02/20/17 08 :36; Admin Dose 17 GM; Start 01/26/17 at 15:30 Sodium Biphosphate/ Sodium Phosphate (Fleet Enema) 133 ml DAILY PRN [place] CONSTIPATION Last administered on 01/27/17 06:17; Admin Dose 133 ML; Start at 20:30 Morphine Sulfate 2 mg 2 mg Q2H PRN IV PAIN LEVEL 7-10 Last administered on 08:32; Admin Dose 2 MG; Start 01/28/17 at 14:00 Ondansetron HCl/ Dextrose (Zofran Inj/D5W) 54 ml @ 108 mls/hr Q6H PRN IV NAUSEA AND/OR VOMITING; Start 01/31/17 at 12:00 Hydromorphone HCl (Dilaudid) 1 mg Q2H PRN IV PAIN LEVEL 6-10 Last administered on 02/20/17 15:06; Admin Dose 1 MG; Start 02/02/17 at 11:30 Acetaminophen (Tylenol Liquid) 650 mg Q4H PRN GTB PAIN AND OR ELEVATED TEMP Last administered on 02/06/17 16:19; Admin Dose 650 MG; Start 02/04/17 at 08:30 ; Status Future Hold Docusate Sodium 100 mg 100 mg BID NGT Last administered on 02/20/17 08:37; Admin Dose 100 MG; Start 02/05/17 at 09:00 Fat Emulsion Intravenous 250 ml @ 10 mls/hr Q24H IV Last administered on 02/19 19:55; Admin Dose 10 MLS/HR; Start 02/05/17 at 20:00 Total Parenteral Nutrition (Tpn) 1,000 ml @ 40 mls/hr Q24H IV Last administered on 02/20/17 18:18; Admin Dose 40 MLS/HR; Start 02/05/17 at 20:00 Diagnostic Test (Pha) (Accu-Chek) 1 ea Q8 XX Last administered on 02/20/17 14 :00; Admin Dose 1 EA; Start 02/07/17 at 22:00 Ondansetron HCl (Zofran Inj) 4 mg Q6H PRN IV NAUSEA AND/OR VOMITING Last administered on 02/17/17 13:09; Admin Dose 4 MG; Start 02/13/17 at 14:30 Heparin Sodium (Porcine) (Heparin (5000 Units/0.5 ml)) 5,000 unit BID SC Last administered on 02/20/17 08:39; Admin Dose 5,000 UNIT; Start 02/17/17 at 21: 00 Furosemide 40 mg 40 mg DAILY@06 PO Last administered on 02/20/17 05:53; Admin Dose 40 MG; Start 02/19/17 at 11:30 Vancomycin HCl 1.5 gm/Sodium Chloride 250 ml @ 83.333 mls/ hr Q12H IVPB Last administered on 02/20/17 08:31; Admin Dose 83.333 MLS/HR; Start 02/19/17 at 20:00 Piperacillin Sod/ Tazobactam Sod 50 ml @ 100 mls/hr Q8 IVPB Last administered on 02/20/17 15:36; Admin Dose 100 MLS/HR; Start 02/19/17 at 22:00 Caspofungin/ Sodium Chloride (Cancidas/NS) 250 ml @ 250 mls/hr Q24H IVPB ; Start 02/20/17 at 22:30 Miscellaneous Information (*Rx Drug Level Order Reminder*) VANCO TROUGH @ 0, 700 ON ... ONCE ONCE XX ; Start 02/21/17 at 07:00; Stop 02/21/17 at 07:01 Procedures Procedures [place] [id number] Radiology Main Line: [phone] DIAGNOSTIC IMAGING REPORT Patient: LUISANA JOVEL : 1960 Age: 56 Sex: F MR #: [id number] DOS: 02/20/17 0000 Ordering MD: RAMIREZ YBARRA MD Location: [facility] Room/Bed: [facility] PROCEDURE: MR Brain with and without contrast. CLINICAL INDICATION: Altered mental status. TECHNIQUE: An MRI of the brain was performed on a 1.5 tri scanner utilizing the following sequences: Sagittal T1 weighted, axial T2 weighted, axial FLAIR, coronal GRE, and axial diffusion weighted with ADC mapping. Additionally, postcontrast axial and coronal T1-weighted sequences were performed after 10 ml Magnevist given intravenously without complication. COMPARISON: MR brain 02/19/2017 FINDINGS: Diffusion weighted sequences were markedly limited due to patient motion, however, no evidence of restricted diffusion is identified to suggest acute or early subacute ischemic infarct. No FLAIR or T2-weighted sequences beyond localizer images could be obtained . No abnormal extra-axial fluid collections are seen. The previously described microvascular ischemic changes are suboptimally evaluated.The postcontrast images show no abnormal parenchymal, leptomeningeal, or dural enhancement. No hypointense signal abnormalities are seen on the GRE images to suggest the presence of blood degradation products. The brain parenchyma is normal in signal intensity and morphology with preservation of whipple white differentiation . Mild generalized cerebral volume loss. Partially empty sella The posterior fossa contents, brainstem, seventh - eighth cranial nerve complexes, pituitary axis, orbits, paranasal sinuses, and mastoid air cells are unremarkable. Normal flow voids are visible in the proximal intracranial arteries and dural sinuses, indicating patency. IMPRESSION: 1. Extremely limited study due to patient inability to complete examination and image degradation secondary to patient motion diffusion weighted sequences. 2. No gross evidence of acute or early subacute ischemic infarct. Previously described microvascular ischemic changes are suboptimally evaluated. No other acute parenchymal abnormality or pathologic enhancement. 3. No intracranial hemorrhage. Mild generalized volume loss. 4. Partially empty sella RPTAT:AAJJ Physician Monica Date Time Electronically viewed and signed by Physician Monica on 02/20/2017 22:47 CAMRYN/ CC: RAMIREZ YBARRA MD, VERA M MD Feb 20, 2017 18:56
[2017-02-20] MEDS: FAT EMULSION 20% 250 ML IV SCH (21:52)
[2017-02-20] MEDS ORDERED: CASPOFUNGIN 50 MG in SOD CHLORIDE 0.9% 250 ML IVPB SCH (22:30)
--- NOTE | 2017-02-20 22:48 | RADRPT ---
PROCEDURE: MR Brain with and without contrast. CLINICAL INDICATION: Altered mental status. TECHNIQUE: An MRI of the brain was performed on a 1.5 tri scanner utilizing the following sequen pebbles: Sagittal T1 weighted, axial T2 weighted, axial FLAIR, coronal GRE, and axial diffusion weighted with ADC mapping. Additionally, postcontrast axial and coronal T1-weighted sequences were performed after 10 ml Magnevist given intravenously without complication. COMPARISON: MR brain 02/19/2017 FINDINGS: Diffusion weighted sequences were markedly limited due to patient motion, however, no evidence of re stricted diffusion is identified to suggest acute or early subacute ischemic infarct. No FLAIR or T2 -weighted sequences beyond localizer images could be obtained . No abnormal extra-axial fluid colle ctions are seen. The previously described microvascular ischemic changes are suboptimally evaluated .The postcontrast images show no abnormal parenchymal, leptomeningeal, or dural enhancement. No hypointense signal abnormalities are seen on the GRE images to suggest the presence of blood degr adation products. The brain parenchyma is normal in signal intensity and morphology with preservation of whipple white di fferentiation . Mild generalized cerebral volume loss. Partially empty sella The posterior fossa contents, brainstem, seventh - eighth cranial nerve complexes, pituitary axis, o rbits, paranasal sinuses, and mastoid air cells are unremarkable. Normal flow voids are visible in the proximal intracranial arteries and dural sinuses, indicating pa tency. IMPRESSION: 1. Extremely limited study due to patient inability to complete examination and image degradation s econdary to patient motion diffusion weighted sequences. 2. No gross evidence of acute or early subacute ischemic infarct. Previously described microvascula r ischemic changes are suboptimally evaluated. No other acute parenchymal abnormality or pathologic enhancement. 3. No intracranial hemorrhage. Mild generalized volume loss. 4. Partially empty sella RPTAT:AAJJ Physician Monica Date Time Electronically viewed and signed by Physician Monica on 02/20/2017 22:47 CAMRYN/
[2017-02-21 02:00] VITALS: BP_SYST 109; BP_SYST 111; BP_DIAS 58; BP_DIAS 60; RESP 18
[2017-02-21] MEDS: FUROSEMIDE 40 MG TAB PO SCH (05:18)
[2017-02-21] MEDS: PIPER-TAZO 3.375 GM IV (PMX) 50 ML IVPB SCH (05:18)
[2017-02-21] MEDS: ACCU-CHEK XX SCH ×3 (05:20→22:00)
[2017-02-21] MEDS: HYDROmorphONE 0.5 MG/0.5 ML SYG IV PRN ×3 (06:17→18:42)
[2017-02-21 07:22] LABS: ABNORMAL IP MESSAGE 1; BASOPHILS % 0.3 % (0.0-2.0); EOSINOPHILS # 0.2 10^3/ul (0.0-0.5); EOSINOPHILS % 1.4 % (0.0-7.0); HEMATOCRIT 27.5 % (37.0-47.0); HEMOGLOBIN 8.8 g/dl (12.0-16.0); LYMPHOCYTES # 0.6 10^3/ul (0.8-2.9); LYMPHOCYTES % 3.9 % (15.0-51.0); MEAN CORPUSCULAR HEMOGLOBIN 27.9 pg (29.0-33.0); MEAN CORPUSCULAR VOLUME 87.3 fl (82.0-101.0); MEAN PLATELET VOLUME 12.3 fl (7.4-10.4); MONOCYTE # 0.9 10^3/ul (0.3-0.9); NEUTROPHIL # 13.4 10^3/ul (1.6-7.5); NEUTROPHILS % 87.7 % (39.0-77.0); PLATELET COUNT 421 10^3/UL (140-415); RED BLOOD COUNT 3.15 10^6/ul (4.20-5.40); RED CELL DISTRIBUTION WIDTH 18.3 % (11.5-14.5); WHITE BLOOD COUNT 15.2 10^3/ul (4.8-10.8)
[2017-02-21 07:39] LABS: POSITIVE DIFF @See below
[2017-02-21 07:46] LABS: CALCIUM 8.3 mg/dl (8.4-10.2); CREATININE 0.52 mg/dl (0.44-1.00); MAGNESIUM 1.9 mg/dl (1.7-2.5); PHOSPHORUS 3.4 mg/dl (2.5-4.9); POTASSIUM 3.3 mmol/L (3.5-5.1)
[2017-02-21 07:53] LABS: PREALBUMIN 6.2 mg/dl (17.6-36.0)
[2017-02-21 08:00] VITALS: BP 104/64; PULSE 90; RESP 18
[2017-02-21] MEDS: HEPARIN 5,000 UNIT/0.5 ML VIAL SC SCH (09:22)
[2017-02-21] MEDS: DOCUSATE SODIUM 10 MG/ML (10ML CUP) NGT SCH ×2 (09:22→20:32)
[2017-02-21] MEDS: POLYETHYLENE GLYCOL 17 GM PACKET PO SCH (09:22)
[2017-02-21] MEDS: VANCOMYCIN 1.25 GM in SOD CHLORIDE 0.9% 250 ML IVPB SCH ×2 (12:51→23:57)
[2017-02-21 14:00] VITALS: BP 110/65; PULSE 97; RESP 18
--- NOTE | 2017-02-21 14:50 | CONS ---
Date/Time of Note Date/Time of Note DATE: 02/21/17 TIME: 14:46 Consult Date/Type/Reason Admit Date/Time Jan 22, 2017 at 14:12 Initial Consult Date 02/20/17 Type of Consultation: Neurology Reason for Consultation encephalopathy Ordering Provider: DAYANARA BROWN MD Subjective requested by oncologist to evaluate for capacity 2 days prior patient was requesting chemotherapy today she appears delirious unable to accurately assess her capacity Objective Vital Signs Date Time Temp Pulse Resp B/P Pulse Ox O2 Delivery O2 Flow Rate FiO2 02/21/17 02:00 98.2 95 18 109/58 93 02/19/17 08:00 Room Air 02/17/17 15:18 2.0 Intake and Output 02/20/17 02/20/17 02/21/17 15:00 23:00 07:00 Intake Total 250 ml 1580 ml 1160 ml Output Total 2300 ml 730 ml Balance 250 ml -720 ml 430 ml Exam she is awake with a sitter at bedside can follow commands on request however unable to state exact location says she is in the ER, unable to state why hospitalized says she is here for shots and there is an imbalance in her blood when asked if she has cancer she says no she is not sick Results/Medications Result Diagram: 02/21/17 0708 02/21/17 0708 Results 24 hrs Laboratory Tests Test 02/20/17 15:41 02/20/17 22:19 02/21/17 05:21 02/21/17 07:08 Bedside Glucose 120 96 104 White Blood Count 15.2 #H Red Blood Count 3.15 L Hemoglobin 8.8 L Hematocrit 27.5 L Mean Corpuscular Volume 87.3 Mean Corpuscular Hemoglobin 27.9 L Mean Corpuscular Hemoglobin Concent 32.0 Red Cell Distribution Width 18.3 H Platelet Count 421 H Mean Platelet Volume 12.3 H Neutrophils % 87.7 H Lymphocytes % 3.9 L Monocytes % 6.0 Eosinophils % 1.4 Basophils % 0.3 Nucleated Red Blood Cells % 0.0 Neutrophils # 13.4 H Lymphocytes # 0.6 L Monocytes # 0.9 Eosinophils # 0.2 Basophils # 0.0 Nucleated Red Blood Cells # 0.0 Sodium Level 141 Potassium Level 3.3 L Chloride Level 105 Carbon Dioxide Level 25 Anion Gap 14 Blood Urea Nitrogen 11 Creatinine 0.52 Glucose Level 104 Calcium Level 8.3 L Phosphorus Level 3.4 Magnesium Level 1.9 Prealbumin 6.2 L Triglycerides Level 164 H Vancomycin Level Trough 18.1 Test 02/21/17 14:33 Bedside Glucose 96 Medications Current Medications Acetaminophen (Tylenol Tab) 650 mg Q6H PRN PO PAIN LEVEL 1-3 OR FEVER Last administered on 02/06/17 23:54; Admin Dose 650 MG; Start 01/22/17 at 16:00; Status Future Hold Docusate Sodium (Colace) 100 mg Q12H PRN PO CONSTIPATION; Start 01/22/17 at 16 :00 Magnesium Hydroxide (Milk Of Mag) 30 ml DAILY PRN PO CONSTIPATION Last administered on 01/31/17 07:38; Admin Dose 30 ML; Start 01/22/17 at 16:00 Bisacodyl (Dulcolax) 5 mg DAILY PRN PO CONSTIPATION Last administered on 05:07; Admin Dose 5 MG; Start 01/22/17 at 16:00 Polyethylene Glycol (Miralax) 17 gm DAILY PO Last administered on 02/21/17 09 :22; Admin Dose 17 GM; Start 01/26/17 at 15:30 Sodium Biphosphate/ Sodium Phosphate (Fleet Enema) 133 ml DAILY PRN [place] CONSTIPATION Last administered on 01/27/17 06:17; Admin Dose 133 ML; Start at 20:30 Morphine Sulfate 2 mg 2 mg Q2H PRN IV PAIN LEVEL 7-10 Last administered on 08:32; Admin Dose 2 MG; Start 01/28/17 at 14:00 Ondansetron HCl/ Dextrose (Zofran Inj/D5W) 54 ml @ 108 mls/hr Q6H PRN IV NAUSEA AND/OR VOMITING; Start 01/31/17 at 12:00 Hydromorphone HCl (Dilaudid) 1 mg Q2H PRN IV PAIN LEVEL 6-10 Last administered on 02/21/17 12:51; Admin Dose 1 MG; Start 02/02/17 at 11:30 Acetaminophen (Tylenol Liquid) 650 mg Q4H PRN GTB PAIN AND OR ELEVATED TEMP Last administered on 02/06/17 16:19; Admin Dose 650 MG; Start 02/04/17 at 08:30 ; Status Future Hold Docusate Sodium 100 mg 100 mg BID NGT Last administered on 02/21/17 09:22; Admin Dose 100 MG; Start 02/05/17 at 09:00 Fat Emulsion Intravenous 250 ml @ 10 mls/hr Q24H IV Last administered on 02/20 21:52; Admin Dose 10 MLS/HR; Start 02/05/17 at 20:00 Total Parenteral Nutrition (Tpn) 1,000 ml @ 40 mls/hr Q24H IV Last administered on 02/20/17 18:18; Admin Dose 40 MLS/HR; Start 02/05/17 at 20:00 Diagnostic Test (Pha) (Accu-Chek) 1 ea Q8 XX Last administered on 02/21/17 05 :20; Admin Dose 1 EA; Start 02/07/17 at 22:00 Ondansetron HCl (Zofran Inj) 4 mg Q6H PRN IV NAUSEA AND/OR VOMITING Last administered on 02/17/17 13:09; Admin Dose 4 MG; Start 02/13/17 at 14:30 Heparin Sodium (Porcine) (Heparin (5000 Units/0.5 ml)) 5,000 unit BID SC Last administered on 02/21/17 09:22; Admin Dose 5,000 UNIT; Start 02/17/17 at 21: 00 Furosemide 40 mg 40 mg DAILY@06 PO Last administered on 02/21/17 05:18; Admin Dose 40 MG; Start 02/19/17 at 11:30 Piperacillin Sod/ Tazobactam Sod 50 ml @ 100 mls/hr Q8 IVPB Last administered on 02/21/17 05:18; Admin Dose 100 MLS/HR; Start 02/19/17 at 22:00 Caspofungin 50 mg/ Sodium Chloride 250 ml @ 250 mls/hr Q24H IVPB Last administered on 02/20/17 22:22; Admin Dose 250 MLS/HR; Start 02/20/17 at 22: 30 Vancomycin HCl/ Sodium Chloride (Vancocin/NS) 250 ml @ 83.333 mls/ hr Q12H IVPB Last administered on 02/21/17 12:51; Admin Dose 83.333 MLS/HR; Start at 11:30 Assessment/Plan Chief Complaint/Hosp Course 56 yo female with advanced ovarian cancer with encephalopathy. MRI Brain with/without contrast was done shows no acute process Recommend delirium from active metabolic issues would recommend reevaluation of her mental status once medical issues resolved, may defer to psychiatry to also evaluate her capacity once more stable d/w primary team and oncology Problems: ERICA SCHWARTZ MD Feb 21, 2017 14:50
[2017-02-21] MEDS ORDERED: POTASSIUM CHLORIDE 40 MEQ in SOD CHLORIDE 0.45% 1,000 ML IV SCH (15:00)
--- NOTE | 2017-02-21 15:44 | PN ---
Date/Time of Note Date/Time of Note DATE: 02/21/17 TIME: 15:37 Assessment/Plan VTE Prophylaxis VTE Prophylaxis Intervention: SCD's Lines/Catheters IV Catheter Type (from Nrsg): Peripheral IV Urinary Cath still in place: Yes Reason Cath still needed: urinary retention Assessment/Plan Assessment/Plan 56 yo F with known stage 4 ovarian Ca admitted for abd pain from malignant ascites. sp para 10.19, sp ureteral stenting, sp debulking surgery on February 03. Hospitalization c/b delirium which is resolving. Now with sepsis 2/2 staph bacteremia #sepsis 2./2 staph bacteremia -repeat cultures -narrow abx to vanc -check TTE -source was likely central line which has been pulled #delirium: likely toxic/metabolic encephalopathy of multifactorial origin including but not limited to very poor/limited sleep x 4 weeks, pain medications , . Nothing about pt's current presentation suggests subclinical status epilepticus. No evidence of untreated infectious process. No electrolyte derangement noted on labs. Pt also getting multiple medications which can precipitate/aggravate delirium including but not limited to benzodiazepines ( ativan), opiates (morphine), anticholinergics (oxybutynin). also with sepsis -MRI brain unremarkable -neuro eval also consistent with delirium #high grade serious ovarian Ca sp debulking 02.03 -pt remains on TPN per fur blowing machine attendant onc. advance PO as tolerated -pt, son, and patient's sister still deciding on where they want to obtain oncology care -cont pain meds #hydro from ovarian mass: sp bl jj stents, appreciate assistance and sen #PEs: sp IVC filter placement LMWH ordered, suspect indefinite length of therapy as VTEs most likely 2/2 underlying malignancy #subclinical hypothyroid: outpatient f/u #anemia: ACD v other. heme on consult #FEN: ADVANCING DIET dispo: PT/OT evals ongoing, will likely need SNF once TPN is weaned. disability paperwork completed Subjective 24 Hr Interval Summary Free Text/Dictation still delirious but feels ok reports flatus and BMs also BMs noted on I/O form Exam/Review of Systems Vital Signs Vitals Vital Signs Date Time Temp Pulse Resp B/P Pulse Ox O2 Delivery O2 Flow Rate FiO2 02/21/17 02:00 98.2 95 18 109/58 93 02/19/17 08:00 Room Air 02/17/17 15:18 2.0 Intake and Output 02/20/17 02/20/17 02/21/17 15:00 23:00 07:00 Intake Total 250 ml 1580 ml 1160 ml Output Total 2300 ml 730 ml Balance 250 ml -720 ml 430 ml Exam doesnt know why she's in the hospital nad no mrg lungs clear abd soft no rashes Results Result Diagram: 02/21/17 0708 02/21/17 0708 Results 24 hrs Laboratory Tests Test 02/20/17 15:41 02/20/17 22:19 02/21/17 05:21 02/21/17 07:08 Bedside Glucose 120 96 104 White Blood Count 15.2 #H Red Blood Count 3.15 L Hemoglobin 8.8 L Hematocrit 27.5 L Mean Corpuscular Volume 87.3 Mean Corpuscular Hemoglobin 27.9 L Mean Corpuscular Hemoglobin Concent 32.0 Red Cell Distribution Width 18.3 H Platelet Count 421 H Mean Platelet Volume 12.3 H Neutrophils % 87.7 H Lymphocytes % 3.9 L Monocytes % 6.0 Eosinophils % 1.4 Basophils % 0.3 Nucleated Red Blood Cells % 0.0 Neutrophils # 13.4 H Lymphocytes # 0.6 L Monocytes # 0.9 Eosinophils # 0.2 Basophils # 0.0 Nucleated Red Blood Cells # 0.0 Sodium Level 141 Potassium Level 3.3 L Chloride Level 105 Carbon Dioxide Level 25 Anion Gap 14 Blood Urea Nitrogen 11 Creatinine 0.52 Glucose Level 104 Calcium Level 8.3 L Phosphorus Level 3.4 Magnesium Level 1.9 Prealbumin 6.2 L Triglycerides Level 164 H Vancomycin Level Trough 18.1 Test 02/21/17 14:33 Bedside Glucose 96 Medications Medications Current Medications Acetaminophen (Tylenol Tab) 650 mg Q6H PRN PO PAIN LEVEL 1-3 OR FEVER Last administered on 02/06/17 23:54; Admin Dose 650 MG; Start 01/22/17 at 16:00; Status Future Hold Docusate Sodium (Colace) 100 mg Q12H PRN PO CONSTIPATION; Start 01/22/17 at 16 :00 Magnesium Hydroxide (Milk Of Mag) 30 ml DAILY PRN PO CONSTIPATION Last administered on 01/31/17 07:38; Admin Dose 30 ML; Start 01/22/17 at 16:00 Bisacodyl (Dulcolax) 5 mg DAILY PRN PO CONSTIPATION Last administered on 05:07; Admin Dose 5 MG; Start 01/22/17 at 16:00 Polyethylene Glycol (Miralax) 17 gm DAILY PO Last administered on 02/21/17 09 :22; Admin Dose 17 GM; Start 01/26/17 at 15:30 Sodium Biphosphate/ Sodium Phosphate (Fleet Enema) 133 ml DAILY PRN [place] CONSTIPATION Last administered on 01/27/17 06:17; Admin Dose 133 ML; Start at 20:30 Morphine Sulfate 2 mg 2 mg Q2H PRN IV PAIN LEVEL 7-10 Last administered on 08:32; Admin Dose 2 MG; Start 01/28/17 at 14:00 Ondansetron HCl/ Dextrose (Zofran Inj/D5W) 54 ml @ 108 mls/hr Q6H PRN IV NAUSEA AND/OR VOMITING; Start 01/31/17 at 12:00 Hydromorphone HCl (Dilaudid) 1 mg Q2H PRN IV PAIN LEVEL 6-10 Last administered on 02/21/17 12:51; Admin Dose 1 MG; Start 02/02/17 at 11:30 Acetaminophen (Tylenol Liquid) 650 mg Q4H PRN GTB PAIN AND OR ELEVATED TEMP Last administered on 02/06/17 16:19; Admin Dose 650 MG; Start 02/04/17 at 08:30 ; Status Future Hold Docusate Sodium 100 mg 100 mg BID NGT Last administered on 02/21/17 09:22; Admin Dose 100 MG; Start 02/05/17 at 09:00 Fat Emulsion Intravenous 250 ml @ 10 mls/hr Q24H IV Last administered on 02/20 21:52; Admin Dose 10 MLS/HR; Start 02/05/17 at 20:00 Total Parenteral Nutrition (Tpn) 1,000 ml @ 40 mls/hr Q24H IV Last administered on 02/20/17 18:18; Admin Dose 40 MLS/HR; Start 02/05/17 at 20:00 Diagnostic Test (Pha) (Accu-Chek) 1 ea Q8 XX Last administered on 02/21/17 05 :20; Admin Dose 1 EA; Start 02/07/17 at 22:00 Ondansetron HCl (Zofran Inj) 4 mg Q6H PRN IV NAUSEA AND/OR VOMITING Last administered on 02/17/17 13:09; Admin Dose 4 MG; Start 02/13/17 at 14:30 Heparin Sodium (Porcine) (Heparin (5000 Units/0.5 ml)) 5,000 unit BID SC Last administered on 02/21/17 09:22; Admin Dose 5,000 UNIT; Start 02/17/17 at 21: 00 Furosemide 40 mg 40 mg DAILY@06 PO Last administered on 02/21/17 05:18; Admin Dose 40 MG; Start 02/19/17 at 11:30 Piperacillin Sod/ Tazobactam Sod 50 ml @ 100 mls/hr Q8 IVPB Last administered on 02/21/17 05:18; Admin Dose 100 MLS/HR; Start 02/19/17 at 22:00 Caspofungin 50 mg/ Sodium Chloride 250 ml @ 250 mls/hr Q24H IVPB Last administered on 02/20/17 22:22; Admin Dose 250 MLS/HR; Start 02/20/17 at 22: 30 Vancomycin HCl 1.25 gm/Sodium Chloride 250 ml @ 83.333 mls/ hr Q12H IVPB Last administered on 02/21/17 12:51; Admin Dose 83.333 MLS/HR; Start 02/21/17 at 11:30 Potassium Chloride (KCl 40 MEQ/250 ML NS) 250 ml @ 62.5 mls/hr ONCE ONCE IVPB ; Start 02/21/17 at 16:30; Stop 02/21/17 at 20:29 DAYANARA BROWN MD Feb 21, 2017 15:44
[2017-02-21] MEDS ORDERED: POTASSIUM CHLORIDE 250 ML IVPB ONE (16:30)
[2017-02-21] MEDS: ENOXAPARIN 80 MG/0.8 ML SYG SC SCH (17:05)
[2017-02-21] MEDS: TPN 1,000 ML IV SCH (17:08)
--- NOTE | 2017-02-21 17:33 | CONS ---
Date/Time of Note Date/Time of Note DATE: 02/21/17 TIME: 17:20 Assessment/Plan Assessment/Plan Chief Complaint/Hosp Course ID PROGRESS NOTE CURRENT ABX: DAY #3 => Vanco IV s/p Cancidas 24H INTERVAL SUMMARY * A/A/O sitting up in bed eating small amount of fruit cup, Afebrile -> TMax today 99.8 == feeling much better * s/p -> spike Temp 102 02/19 -> BCx (+)Staph aureus, repeat BC x 02/20 (+)GPC - > TLC removed * Chest x-ray revealed mild pulmonary congestion, questionable left basilar pneumonia. * Hospital course events:s/p respiratory failure-> NOW Extubated & stable on room air , s/p IVC Filter for PE 02/12/17 Physical Exam Physical Exam Constitutional: Awake, alert, responsive, VSS, NAD, feels good HEENT: At, NC, anicteric Neck: Trach midline, neck supple Respiratory: Clear anterior, diminished BLL Cardiovascular: NSR on tele, radial pulses 2+ bilaterally Gastrointestinal: Soft, BS + Extremities: Warm, no cyanosis, trace edema Neurological: No focal deficits ID ASSESSMENT 56 yo F admit with 1. Recurrent Sepsis w/FEVER > 102 on 02/19 + leukocytosis => LINE sepsis, line removed * s/p Septic shock with fevers > 102.+ on admission, leukocytosis 2. Bacteremia with blood culture growing gram-positive cocci=> Line DC;d * 02/19 -> BCx (+)Staph aureus, repeat BC x 02/20 (+)GPC -> TLC removed 3. Metastatic ovarian cancer, status post ureteral dissection, omentectomy with splenectomy and cytoreduction on 02/02/2017. 4. Status post alpha hemolytic strep urinary tract infection on admission-> * Urine Cx 02/04/17 (-) 6. Bilateral hydronephrosis, status post JJ stent insertion on 01/24/2017. 7. s/p Respiratory failure-> Extubated and stable on room air 8. Anemia. ( )MRSA Nares->? ABX ALLERGIES: KNDA CURRENT ABX: DAY #3 => Vanco IV s/p Cancidas ID RECOMMENDATIONS 1. Continue current ABX over the weekend=> f/u on final ID Staph Aureus BCx pending \ . Problems: Consultation Date/Type/Reason Admit Date/Time Jan 22, 2017 at 14:12 Initial Consult Date 02/03/17 Referring Provider: DAYANARA BROWN MD Exam/Review of Systems Vital Signs Vitals Vital Signs Date Time Temp Pulse Resp B/P Pulse Ox O2 Delivery O2 Flow Rate FiO2 02/21/17 02:00 98.2 95 18 109/58 93 02/19/17 08:00 Room Air 02/17/17 15:18 2.0 Intake and Output 02/20/17 02/20/17 02/21/17 15:00 23:00 07:00 Intake Total 250 ml 1580 ml 1160 ml Output Total 2300 ml 730 ml Balance 250 ml -720 ml 430 ml Results Result Diagram: 02/21/17 0708 02/21/17 0708 Results 24 hrs Laboratory Tests Test 02/20/17 22:19 02/21/17 05:21 02/21/17 07:08 02/21/17 14:33 Bedside Glucose 96 104 96 White Blood Count 15.2 #H Red Blood Count 3.15 L Hemoglobin 8.8 L Hematocrit 27.5 L Mean Corpuscular Volume 87.3 Mean Corpuscular Hemoglobin 27.9 L Mean Corpuscular Hemoglobin Concent 32.0 Red Cell Distribution Width 18.3 H Platelet Count 421 H Mean Platelet Volume 12.3 H Neutrophils % 87.7 H Lymphocytes % 3.9 L Monocytes % 6.0 Eosinophils % 1.4 Basophils % 0.3 Nucleated Red Blood Cells % 0.0 Neutrophils # 13.4 H Lymphocytes # 0.6 L Monocytes # 0.9 Eosinophils # 0.2 Basophils # 0.0 Nucleated Red Blood Cells # 0.0 Sodium Level 141 Potassium Level 3.3 L Chloride Level 105 Carbon Dioxide Level 25 Anion Gap 14 Blood Urea Nitrogen 11 Creatinine 0.52 Glucose Level 104 Calcium Level 8.3 L Phosphorus Level 3.4 Magnesium Level 1.9 Prealbumin 6.2 L Triglycerides Level 164 H Vancomycin Level Trough 18.1 Medications Medications Current Medications Acetaminophen (Tylenol Tab) 650 mg Q6H PRN PO PAIN LEVEL 1-3 OR FEVER Last administered on 02/06/17t 23:54; Admin Dose 650 MG; Start 01/22/17 at 16:00; Status Future Hold Docusate Sodium (Colace) 100 mg Q12H PRN PO CONSTIPATION; Start 01/22/17 at 16 :00 Magnesium Hydroxide (Milk Of Mag) 30 ml DAILY PRN PO CONSTIPATION Last administered on 01/31/17 07:38; Admin Dose 30 ML; Start 01/22/17 at 16:00 Bisacodyl (Dulcolax) 5 mg DAILY PRN PO CONSTIPATION Last administered on 05:07; Admin Dose 5 MG; Start 01/22/17 at 16:00 Polyethylene Glycol (Miralax) 17 gm DAILY PO Last administered on 02/21/17 09 :22; Admin Dose 17 GM; Start 01/26/17 at 15:30 Sodium Biphosphate/ Sodium Phosphate (Fleet Enema) 133 ml DAILY PRN [place] CONSTIPATION Last administered on 01/27/17 06:17; Admin Dose 133 ML; Start at 20:30 Morphine Sulfate 2 mg 2 mg Q2H PRN IV PAIN LEVEL 7-10 Last administered on 08:32; Admin Dose 2 MG; Start 01/28/17 at 14:00 Ondansetron HCl/ Dextrose (Zofran Inj/D5W) 54 ml @ 108 mls/hr Q6H PRN IV NAUSEA AND/OR VOMITING; Start 01/31/17 at 12:00 Hydromorphone HCl (Dilaudid) 1 mg Q2H PRN IV PAIN LEVEL 6-10 Last administered on 02/21/17 12:51; Admin Dose 1 MG; Start 02/02/17 at 11:30 Acetaminophen (Tylenol Liquid) 650 mg Q4H PRN GTB PAIN AND OR ELEVATED TEMP Last administered on 02/06/17 16:19; Admin Dose 650 MG; Start 02/04/17 at 08:30 ; Status Future Hold Docusate Sodium 100 mg 100 mg BID NGT Last administered on 02/21/17 09:22; Admin Dose 100 MG; Start 02/05/17 at 09:00 Fat Emulsion Intravenous 250 ml @ 10 mls/hr Q24H IV Last administered on 02/20 21:52; Admin Dose 10 MLS/HR; Start 02/05/17 at 20:00 Total Parenteral Nutrition (Tpn) 1,000 ml @ 40 mls/hr Q24H IV Last administered on 02/21/17 17:08; Admin Dose 40 MLS/HR; Start 02/05/17 at 20:00 Diagnostic Test (Pha) (Accu-Chek) 1 ea Q8 XX Last administered on 02/21/17 05 :20; Admin Dose 1 EA; Start 02/07/17 at 22:00 Ondansetron HCl (Zofran Inj) 4 mg Q6H PRN IV NAUSEA AND/OR VOMITING Last administered on 02/17/17 13:09; Admin Dose 4 MG; Start 02/13/17 at 14:30 Furosemide 40 mg 40 mg DAILY@06 PO Last administered on 02/21/17 05:18; Admin Dose 40 MG; Start 02/19/17 at 11:30 Vancomycin HCl 1.25 gm/Sodium Chloride 250 ml @ 83.333 mls/ hr Q12H IVPB Last administered on 02/21/17 12:51; Admin Dose 83.333 MLS/HR; Start 02/21/17 at 11:30 Potassium Chloride (KCl 40 MEQ/250 ML NS) 250 ml @ 62.5 mls/hr ONCE ONCE IVPB Last administered on 02/21/17 17:09; Admin Dose 62.5 MLS/HR; Start at 16:30; Stop 02/21/17 at 20:29 Enoxaparin Sodium (Lovenox) 65 mg Q12H SC Last administered on 02/21/17 17:05 ; Admin Dose 65 MG; Start 02/21/17 at 16:00 LINDA ESTES NP Feb 21, 2017 17:30
[2017-02-21 20:00] VITALS: BP 102/65; RESP 18
[2017-02-21] MEDS: FAT EMULSION 20% 250 ML IV SCH (20:31)
--- NOTE | 2017-02-21 21:52 | PN ---
Date/Time of Note Date/Time of Note DATE: 02/21/17 TIME: 21:46 Assessment/Plan VTE Prophylaxis VTE Prophylaxis Intervention: heparin Lines/Catheters IV Catheter Type (from Nrsg): Peripheral IV Urinary Cath still in place: Yes Reason Cath still needed: other (indicate) Assessment/Plan Chief Complaint/Hosp Course Stage IIIc - IV ovarian cancer Problems: Assessment/Plan A- Agree and appreciate neuro P- continue a.m. and anticipate recovery. Consider not removal of stents due to extents of distal and bladder tumor reaction; discussed with . Subjective 24 Hr Interval Summary Free Text/Dictation Feels better and sl more alert and conversant less pain and + flatus Exam/Review of Systems Vital Signs Vitals Vital Signs Date Time Temp Pulse Resp B/P Pulse Ox O2 Delivery O2 Flow Rate FiO2 02/21/17 20:00 98.0 94 18 102/65 96 02/21/17 14:00 Room Air 02/17/17 15:18 2.0 Intake and Output 02/20/17 02/20/17 02/21/17 14:59 22:59 06:59 Intake Total 250 ml 1580 ml 1160 ml Output Total 2300 ml 730 ml Balance 250 ml -720 ml 430 ml Exam Resp- clear CVS- NSR And- irregular but less tender Ext- NT Results Result Diagram: 02/21/17 0708 02/21/17 0708 Results 24 hrs Laboratory Tests Test 02/20/17 22:19 02/21/17 05:21 02/21/17 07:08 02/21/17 14:33 Bedside Glucose 96 104 96 White Blood Count 15.2 #H Red Blood Count 3.15 L Hemoglobin 8.8 L Hematocrit 27.5 L Mean Corpuscular Volume 87.3 Mean Corpuscular Hemoglobin 27.9 L Mean Corpuscular Hemoglobin Concent 32.0 Red Cell Distribution Width 18.3 H Platelet Count 421 H Mean Platelet Volume 12.3 H Neutrophils % 87.7 H Lymphocytes % 3.9 L Monocytes % 6.0 Eosinophils % 1.4 Basophils % 0.3 Nucleated Red Blood Cells % 0.0 Neutrophils # 13.4 H Lymphocytes # 0.6 L Monocytes # 0.9 Eosinophils # 0.2 Basophils # 0.0 Nucleated Red Blood Cells # 0.0 Sodium Level 141 Potassium Level 3.3 L Chloride Level 105 Carbon Dioxide Level 25 Anion Gap 14 Blood Urea Nitrogen 11 Creatinine 0.52 Glucose Level 104 Calcium Level 8.3 L Phosphorus Level 3.4 Magnesium Level 1.9 Prealbumin 6.2 L Triglycerides Level 164 H Vancomycin Level Trough 18.1 Medications Medications Current Medications Acetaminophen (Tylenol Tab) 650 mg Q6H PRN PO PAIN LEVEL 1-3 OR FEVER Last administered on 02/06/17 23:54; Admin Dose 650 MG; Start 01/22/17 at 16:00; Status Future Hold Docusate Sodium (Colace) 100 mg Q12H PRN PO CONSTIPATION; Start 01/22/17 at 16 :00 Magnesium Hydroxide (Milk Of Mag) 30 ml DAILY PRN PO CONSTIPATION Last administered on 01/31/17 07:38; Admin Dose 30 ML; Start 01/22/17 at 16:00 Bisacodyl (Dulcolax) 5 mg DAILY PRN PO CONSTIPATION Last administered on 05:07; Admin Dose 5 MG; Start 01/22/17 at 16:00 Polyethylene Glycol (Miralax) 17 gm DAILY PO Last administered on 02/21/17 09 :22; Admin Dose 17 GM; Start 01/26/17 at 15:30 Sodium Biphosphate/ Sodium Phosphate (Fleet Enema) 133 ml DAILY PRN [place] CONSTIPATION Last administered on 01/27/17 06:17; Admin Dose 133 ML; Start at 20:30 Morphine Sulfate 2 mg 2 mg Q2H PRN IV PAIN LEVEL 7-10 Last administered on 08:32; Admin Dose 2 MG; Start 01/28/17 at 14:00 Ondansetron HCl/ Dextrose (Zofran Inj/D5W) 54 ml @ 108 mls/hr Q6H PRN IV NAUSEA AND/OR VOMITING; Start 01/31/17 at 12:00 Hydromorphone HCl (Dilaudid) 1 mg Q2H PRN IV PAIN LEVEL 6-10 Last administered on 02/21/17 18:42; Admin Dose 1 MG; Start 02/02/17 at 11:30 Acetaminophen (Tylenol Liquid) 650 mg Q4H PRN GTB PAIN AND OR ELEVATED TEMP Last administered on 02/06/17 16:19; Admin Dose 650 MG; Start 02/04/17 at 08:30 ; Status Future Hold Docusate Sodium 100 mg 100 mg BID NGT Last administered on 02/21/17 09:22; Admin Dose 100 MG; Start 02/05/17 at 09:00 Fat Emulsion Intravenous 250 ml @ 10 mls/hr Q24H IV Last administered on 02/21 20:31; Admin Dose 10 MLS/HR; Start 02/05/17 at 20:00 Total Parenteral Nutrition (Tpn) 1,000 ml @ 40 mls/hr Q24H IV Last administered on 02/21/17 17:08; Admin Dose 40 MLS/HR; Start 02/05/17 at 20:00 Diagnostic Test (Pha) (Accu-Chek) 1 ea Q8 XX Last administered on 02/21/17 05 :20; Admin Dose 1 EA; Start 02/07/17 at 22:00 Ondansetron HCl (Zofran Inj) 4 mg Q6H PRN IV NAUSEA AND/OR VOMITING Last administered on 02/17/17 13:09; Admin Dose 4 MG; Start 02/13/17 at 14:30 Furosemide 40 mg 40 mg DAILY@06 PO Last administered on 02/21/17 05:18; Admin Dose 40 MG; Start 02/19/17 at 11:30 Vancomycin HCl/ Sodium Chloride (Vancocin/NS) 250 ml @ 83.333 mls/ hr Q12H IVPB Last administered on 02/21/17 12:51; Admin Dose 83.333 MLS/HR; Start at 11:30 Enoxaparin Sodium (Lovenox) 65 mg Q12H SC Last administered on 02/21/17 17:05 ; Admin Dose 65 MG; Start 02/21/17 at 16:00 RAUL EUCEDA MD Feb 21, 2017 21:52
--- NOTE | 2017-02-21 22:27 | CONS ---
Date/Time of Note Date/Time of Note DATE: 02/21/17 TIME: 22:21 Assessment/Plan Assessment/Plan Chief Complaint/Hosp Course ADVANCED OVARIAN CANCER WITH MALIGNANT ASCITES AND PERITONEAL carcinomatosis- Stage IIIc - IV ovarian cancer Large conglomerate pelvic mass inseparable from the uterus, sigmoid colon and rectum containing clumps of calcification suspicious for calcified fibroids and containing cystic areas. Large amount of free intraperitoneal fluid measuring 25 HU with caking of the omentum compatible with carcinomatosis. Centralization of bowel without evidence of bowel obstruction. Moderately severe right hydronephrosis and hydroureter to the level of the pelvic mass. There is moderate left pelvocaliectasis without ureteral dilatation. The bladder is quite distended with urine. POST cystoscopy and insertion of bilateral JJ stents. PER DR ABRAMS-If she gets better and respond to treatment then later on in the future she will need the stents removed and may be replaced CT CHEST - EDOU[place], EXCEPT SMALL L PLEURAL EFFUSION CA 125- 337 POST debulking surgery PATH- [id number] High grade serous carcinoma. 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 hydro AUR from ascites, sp ureteral stenting. ILEUS NG TPN Problems: Consultation Date/Type/Reason Admit Date/Time Jan 22, 2017 at 14:12 Initial Consult Date 01/27/17 Referring Provider: DAYANARA BROWN MD 24 HR Interval Summary Free Text/Dictation ALL NOTED D/W IM AND NEURO PT IS BACTEREMIC Exam/Review of Systems Vital Signs Vitals Vital Signs Date Time Temp Pulse Resp B/P Pulse Ox O2 Delivery O2 Flow Rate FiO2 02/21/17 20:00 98.0 94 18 102/65 96 02/21/17 14:00 Room Air 02/17/17 15:18 2.0 Intake and Output 02/20/17 02/20/17 02/21/17 15:00 23:00 07:00 Intake Total 250 ml 1580 ml 1160 ml Output Total 2300 ml 730 ml Balance 250 ml -720 ml 430 ml Exam GENERAL: Chronically ill-appearing lady, CONFUSED, NOT IN PAIN VITAL SIGNS: per chart NECK: Supple. No JVD or lymphadenopathy. CARDIAC EXAM: S1, S2. No added sounds or murmurs. CHEST: Bilateral rales. ABDOMEN: Soft, nontender. No guarding or rebound. EXTREMITIES: No cyanosis, clubbing or edema. NEUROLOGIC: Generalized weakness. Results Result Diagram: 02/21/17 0708 02/21/17 0708 Results 24 hrs Laboratory Tests Test 02/21/17 05:21 02/21/17 07:08 02/21/17 14:33 Bedside Glucose 104 96 White Blood Count 15.2 #H Red Blood Count 3.15 L Hemoglobin 8.8 L Hematocrit 27.5 L Mean Corpuscular Volume 87.3 Mean Corpuscular Hemoglobin 27.9 L Mean Corpuscular Hemoglobin Concent 32.0 Red Cell Distribution Width 18.3 H Platelet Count 421 H Mean Platelet Volume 12.3 H Neutrophils % 87.7 H Lymphocytes % 3.9 L Monocytes % 6.0 Eosinophils % 1.4 Basophils % 0.3 Nucleated Red Blood Cells % 0.0 Neutrophils # 13.4 H Lymphocytes # 0.6 L Monocytes # 0.9 Eosinophils # 0.2 Basophils # 0.0 Nucleated Red Blood Cells # 0.0 Sodium Level 141 Potassium Level 3.3 L Chloride Level 105 Carbon Dioxide Level 25 Anion Gap 14 Blood Urea Nitrogen 11 Creatinine 0.52 Glucose Level 104 Calcium Level 8.3 L Phosphorus Level 3.4 Magnesium Level 1.9 Prealbumin 6.2 L Triglycerides Level 164 H Vancomycin Level Trough 18.1 Medications Medications Current Medications Acetaminophen (Tylenol Tab) 650 mg Q6H PRN PO PAIN LEVEL 1-3 OR FEVER Last administered on 02/06/17t 23:54; Admin Dose 650 MG; Start 01/22/17 at 16:00; Status Future Hold Docusate Sodium (Colace) 100 mg Q12H PRN PO CONSTIPATION; Start 01/22/17 at 16 :00 Magnesium Hydroxide (Milk Of Mag) 30 ml DAILY PRN PO CONSTIPATION Last administered on 01/31/17 07:38; Admin Dose 30 ML; Start 01/22/17 at 16:00 Bisacodyl (Dulcolax) 5 mg DAILY PRN PO CONSTIPATION Last administered on 05:07; Admin Dose 5 MG; Start 01/22/17 at 16:00 Polyethylene Glycol (Miralax) 17 gm DAILY PO Last administered on 02/21/17 09 :22; Admin Dose 17 GM; Start 01/26/17 at 15:30 Sodium Biphosphate/ Sodium Phosphate (Fleet Enema) 133 ml DAILY PRN [place] CONSTIPATION Last administered on 01/27/17 06:17; Admin Dose 133 ML; Start at 20:30 Morphine Sulfate 2 mg 2 mg Q2H PRN IV PAIN LEVEL 7-10 Last administered on 08:32; Admin Dose 2 MG; Start 01/28/17 at 14:00 Ondansetron HCl/ Dextrose (Zofran Inj/D5W) 54 ml @ 108 mls/hr Q6H PRN IV NAUSEA AND/OR VOMITING; Start 01/31/17 at 12:00 Hydromorphone HCl (Dilaudid) 1 mg Q2H PRN IV PAIN LEVEL 6-10 Last administered on 02/21/17 18:42; Admin Dose 1 MG; Start 02/02/17 at 11:30 Acetaminophen (Tylenol Liquid) 650 mg Q4H PRN GTB PAIN AND OR ELEVATED TEMP Last administered on 02/06/17 16:19; Admin Dose 650 MG; Start 02/04/17 at 08:30 ; Status Future Hold Docusate Sodium 100 mg 100 mg BID NGT Last administered on 02/21/17 09:22; Admin Dose 100 MG; Start 02/05/17 at 09:00 Fat Emulsion Intravenous 250 ml @ 10 mls/hr Q24H IV Last administered on 02/21 20:31; Admin Dose 10 MLS/HR; Start 02/05/17 at 20:00 Total Parenteral Nutrition (Tpn) 1,000 ml @ 40 mls/hr Q24H IV Last administered on 02/21/17 17:08; Admin Dose 40 MLS/HR; Start 02/05/17 at 20:00 Diagnostic Test (Pha) (Accu-Chek) 1 ea Q8 XX Last administered on 02/21/17 05 :20; Admin Dose 1 EA; Start 02/07/17 at 22:00 Ondansetron HCl (Zofran Inj) 4 mg Q6H PRN IV NAUSEA AND/OR VOMITING Last administered on 02/17/17 13:09; Admin Dose 4 MG; Start 02/13/17 at 14:30 Furosemide 40 mg 40 mg DAILY@06 PO Last administered on 02/21/17 05:18; Admin Dose 40 MG; Start 02/19/17 at 11:30 Vancomycin HCl/ Sodium Chloride (Vancocin/NS) 250 ml @ 83.333 mls/ hr Q12H IVPB Last administered on 02/21/17 12:51; Admin Dose 83.333 MLS/HR; Start at 11:30 Enoxaparin Sodium (Lovenox) 65 mg Q12H SC Last administered on 02/21/17 17:05 ; Admin Dose 65 MG; Start 02/21/17 at 16:00 RAMIREZ YBARRA MD Feb 21, 2017 22:27
[2017-02-22 02:00] VITALS: BP 120/70; RESP 18
[2017-02-22] MEDS: HYDROmorphONE 0.5 MG/0.5 ML SYG IV PRN ×3 (02:01→20:14)
[2017-02-22] MEDS: ENOXAPARIN 80 MG/0.8 ML SYG SC SCH ×2 (05:19→16:00)
[2017-02-22] MEDS: FUROSEMIDE 40 MG TAB PO SCH (05:21)
[2017-02-22] MEDS: ACCU-CHEK XX SCH ×3 (05:33→22:00)
[2017-02-22 06:28] LABS: ABNORMAL IP MESSAGE 1; BASOPHILS % 0.3 % (0.0-2.0); EOSINOPHILS # 0.2 10^3/ul (0.0-0.5); EOSINOPHILS % 1.8 % (0.0-7.0); HEMATOCRIT 26.9 % (37.0-47.0); HEMOGLOBIN 8.3 g/dl (12.0-16.0); LYMPHOCYTES # 0.7 10^3/ul (0.8-2.9); LYMPHOCYTES % 6.1 % (15.0-51.0); MEAN CORPUSCULAR HEMOGLOBIN 27.2 pg (29.0-33.0); MEAN CORPUSCULAR HGB CONC 30.9 g/dl (32.0-37.0); MEAN CORPUSCULAR VOLUME 88.2 fl (82.0-101.0); MEAN PLATELET VOLUME 13.1 fl (7.4-10.4); MONOCYTE # 1.2 10^3/ul (0.3-0.9); MONOCYTES % 9.8 % (0.0-11.0); NEUTROPHIL # 9.5 10^3/ul (1.6-7.5); NEUTROPHILS % 81.1 % (39.0-77.0); NUCLEATED RED BLOOD CELLS% 0.2 /100WBC (0.0-0.0); PLATELET COUNT 429 10^3/UL (140-415); RED BLOOD COUNT 3.05 10^6/ul (4.20-5.40); RED CELL DISTRIBUTION WIDTH 18.3 % (11.5-14.5); WHITE BLOOD COUNT 11.7 10^3/ul (4.8-10.8)
[2017-02-22 06:29] LABS: POSITIVE DIFF @See below
[2017-02-22 06:44] LABS: CALCIUM 8.8 mg/dl (8.4-10.2); CREATININE 0.51 mg/dl (0.44-1.00); MAGNESIUM 1.8 mg/dl (1.7-2.5); PHOSPHORUS 3.1 mg/dl (2.5-4.9)
[2017-02-22 07:31] VITALS: BP 126/74; RESP 16
[2017-02-22] MEDS: DOCUSATE SODIUM 10 MG/ML (10ML CUP) NGT SCH ×2 (09:00→20:18)
[2017-02-22] MEDS: POLYETHYLENE GLYCOL 17 GM PACKET PO SCH (09:00)
--- NOTE | 2017-02-22 14:22 | CONS ---
Date/Time of Note Date/Time of Note DATE: 02/22/17 TIME: 14:21 Assessment/Plan Assessment/Plan Chief Complaint/Hosp Course ADVANCED OVARIAN CANCER WITH MALIGNANT ASCITES AND PERITONEAL carcinomatosis- Stage IIIc - IV ovarian cancer Large conglomerate pelvic mass inseparable from the uterus, sigmoid colon and rectum containing clumps of calcification suspicious for calcified fibroids and containing cystic areas. Large amount of free intraperitoneal fluid measuring 25 HU with caking of the omentum compatible with carcinomatosis. Centralization of bowel without evidence of bowel obstruction. Moderately severe right hydronephrosis and hydroureter to the level of the pelvic mass. There is moderate left pelvocaliectasis without ureteral dilatation. The bladder is quite distended with urine. POST cystoscopy and insertion of bilateral JJ stents. PER DR ABRAMS-If she gets better and respond to treatment then later on in the future she will need the stents removed and may be replaced CT CHEST - [place], EXCEPT SMALL L PLEURAL EFFUSION CA 125- 337 POST debulking surgery PATH- T3N0M1 High grade serous carcinoma. D/W SON- HE IS REFUSING CHEMO POST IVC filter UNABLE TO PROCEED WITH CHEMO 2 TO BACTEREMIA AND CONFUSION/AMS ANEMIA, MICROCYTOSIS COMPLEX ANEMIA W-UP= + COMPONENT ACD DROP H/H POSTOP SERIAL H/H PRBC NEEDED PER STANDING ORDERS D/W RN LEUKOCYTOSIS REACTIVE, PARTIALLY 2 TO Splenectomy, partially 2 to infection CONFUSION NEURO F-UP MRI BRAIN- NO METS Recurrent Sepsis w/FEVER > 102 on 02/19 + leukocytosis => LINE sepsis, line removed * s/p Septic shock with fevers > 102.+ on admission, leukocytosis Bacteremia with blood culture growing gram-positive cocci=> Line DC;d * 02/19 -> BCx (+)Staph aureus, repeat BC x 02/20 (+)[facility]PC -> TLC removed PELVIC ABSCESS- POST DRAINAGE malignant ascites sp para 10.19. hydro AUR from ascites, sp ureteral stenting. ILEUS NG TPN Problems: Consultation Date/Type/Reason Admit Date/Time Jan 22, 2017 at 14:12 Initial Consult Date 01/27/17 Referring Provider: DAYANARA BROWN MD 24 HR Interval Summary Free Text/Dictation ALL NOTED D/W PRIMARY AND NEURO Exam/Review of Systems Vital Signs Vitals Vital Signs Date Time Temp Pulse Resp B/P Pulse Ox O2 Delivery O2 Flow Rate FiO2 02/22/17 07:31 97.9 95 16 126/74 96 02/21/17 14:00 Room Air Intake and Output 02/21/17 02/21/17 02/22/17 15:00 23:00 07:00 Intake Total 1400 ml 1055 ml Output Total 1204 ml 765 ml Balance 196 ml 290 ml Exam GENERAL: Chronically ill-appearing lady, CONFUSED, NOT IN PAIN VITAL SIGNS: per chart NECK: Supple. No JVD or lymphadenopathy. CARDIAC EXAM: S1, S2. No added sounds or murmurs. CHEST: Bilateral rales. ABDOMEN: Soft, nontender. No guarding or rebound. EXTREMITIES: No cyanosis, clubbing or edema. NEUROLOGIC: Generalized weakness. Results Result Diagram: 02/22/1746 02/22/1746 Results 24 hrs Laboratory Tests Test 02/21/17 14:33 02/21/17 22:23 02/22/17 05:24 02/22/17 05:46 Bedside Glucose 96 124 99 White Blood Count 11.7 #H Red Blood Count 3.05 L Hemoglobin 8.3 L Hematocrit 26.9 L Mean Corpuscular Volume 88.2 Mean Corpuscular Hemoglobin 27.2 L Mean Corpuscular Hemoglobin Concent 30.9 L Red Cell Distribution Width 18.3 H Platelet Count 429 H Mean Platelet Volume 13.1 H Neutrophils % 81.1 H Lymphocytes % 6.1 L Monocytes % 9.8 Eosinophils % 1.8 Basophils % 0.3 Nucleated Red Blood Cells % 0.2 H Neutrophils # 9.5 H Lymphocytes # 0.7 L Monocytes # 1.2 H Eosinophils # 0.2 Basophils # 0.0 Nucleated Red Blood Cells # 0.0 Sodium Level 140 Potassium Level 4.0 Chloride Level 107 Carbon Dioxide Level 26 Anion Gap 11 Blood Urea Nitrogen 12 Creatinine 0.51 Glucose Level 91 Calcium Level 8.8 Phosphorus Level 3.1 Magnesium Level 1.8 Medications Medications Current Medications Acetaminophen (Tylenol Tab) 650 mg Q6H PRN PO PAIN LEVEL 1-3 OR FEVER Last administered on 02/06/17t 23:54; Admin Dose 650 MG; Start 01/22/17 at 16:00; Status Future Hold Docusate Sodium (Colace) 100 mg Q12H PRN PO CONSTIPATION; Start 01/22/17 at 16 :00 Magnesium Hydroxide (Milk Of Mag) 30 ml DAILY PRN PO CONSTIPATION Last administered on 01/31/17 07:38; Admin Dose 30 ML; Start 01/22/17 at 16:00 Bisacodyl (Dulcolax) 5 mg DAILY PRN PO CONSTIPATION Last administered on 05:07; Admin Dose 5 MG; Start 01/22/17 at 16:00 Polyethylene Glycol (Miralax) 17 gm DAILY PO Last administered on 02/21/17 09 :22; Admin Dose 17 GM; Start 01/26/17 at 15:30 Sodium Biphosphate/ Sodium Phosphate (Fleet Enema) 133 ml DAILY PRN [place] CONSTIPATION Last administered on 01/27/17 06:17; Admin Dose 133 ML; Start at 20:30 Morphine Sulfate 2 mg 2 mg Q2H PRN IV PAIN LEVEL 7-10 Last administered on 08:32; Admin Dose 2 MG; Start 01/28/17 at 14:00 Ondansetron HCl/ Dextrose (Zofran Inj/D5W) 54 ml @ 108 mls/hr Q6H PRN IV NAUSEA AND/OR VOMITING; Start 01/31/17 at 12:00 Hydromorphone HCl (Dilaudid) 1 mg Q2H PRN IV PAIN LEVEL 6-10 Last administered on 02/22/17 02:01; Admin Dose 1 MG; Start 02/02/17 at 11:30 Acetaminophen (Tylenol Liquid) 650 mg Q4H PRN GTB PAIN AND OR ELEVATED TEMP Last administered on 02/06/17 16:19; Admin Dose 650 MG; Start 02/04/17 at 08:30 ; Status Future Hold Docusate Sodium 100 mg 100 mg BID NGT Last administered on 02/21/17 09:22; Admin Dose 100 MG; Start 02/05/17 at 09:00 Fat Emulsion Intravenous 250 ml @ 10 mls/hr Q24H IV Last administered on 02/21 20:31; Admin Dose 10 MLS/HR; Start 02/05/17 at 20:00 Total Parenteral Nutrition (Tpn) 1,000 ml @ 40 mls/hr Q24H IV Last administered on 02/21/17 17:08; Admin Dose 40 MLS/HR; Start 02/05/17 at 20:00 Diagnostic Test (Pha) (Accu-Chek) 1 ea Q8 XX Last administered on 02/21/17 05 :20; Admin Dose 1 EA; Start 02/07/17 at 22:00 Ondansetron HCl (Zofran Inj) 4 mg Q6H PRN IV NAUSEA AND/OR VOMITING Last administered on 02/17/17 13:09; Admin Dose 4 MG; Start 02/13/17 at 14:30 Furosemide 40 mg 40 mg DAILY@06 PO Last administered on 02/22/17 05:21; Admin Dose 40 MG; Start 02/19/17 at 11:30 Vancomycin HCl/ Sodium Chloride (Vancocin/NS) 250 ml @ 83.333 mls/ hr Q12H IVPB Last administered on 02/21/17 23:57; Admin Dose 83.333 MLS/HR; Start at 11:30 Enoxaparin Sodium (Lovenox) 65 mg Q12H SC Last administered on 02/22/17 05:19 ; Admin Dose 65 MG; Start 02/21/17 at 16:00 Miscellaneous Information (*Rx Drug Level Order Reminder*) VANCOMYCIN TROUGH ON 02/05... ONCE ONCE XX ; Start 02/23/17 at 10:30; Stop 02/23/17 at 10:31 RAMIREZ YBARRA MD Feb 22, 2017 14:22
[2017-02-22] MEDS: VANCOMYCIN 1.25 GM in SOD CHLORIDE 0.9% 250 ML IVPB SCH ×2 (14:31→23:06)
--- NOTE | 2017-02-22 15:41 | PN ---
Date/Time of Note Date/Time of Note DATE: 02/22/17 TIME: 15:36 Assessment/Plan VTE Prophylaxis VTE Prophylaxis Intervention: heparin Lines/Catheters IV Catheter Type (from Nrs): Peripheral IV Urinary Cath still in place: Yes Reason Cath still needed: urinary retention Assessment/Plan Chief Complaint/Hosp Course Stage IIIc - IV ovarian cancer Problems: Assessment/Plan A- gradual impvt P- will start bladder training and d/c [place] 2-3 d Possibly adv diet and eval J/P modification Subjective 24 Hr Interval Summary Free Text/Dictation Comfortable and rasheeda diet better. Minimally OOB. Exam/Review of Systems Vital Signs Vitals Vital Signs Date Time Temp Pulse Resp B/P Pulse Ox O2 Delivery O2 Flow Rate FiO2 02/22/17 07:31 97.9 95 16 126/74 96 02/21/17 14:00 Room Air Intake and Output 02/21/17 02/21/17 02/22/17 14:59 22:59 06:59 Intake Total 1400 ml 1055 ml Output Total 1204 ml 765 ml Balance 196 ml 290 ml Exam Resp- clear CVS- NSR Abd- softer NT Ext- NT Results Result Diagram: 02/22/17 0546 02/22/17 0546 Results 24 hrs Laboratory Tests Test 02/21/17 22:23 02/22/17 05:24 02/22/17 05:46 02/22/17 14:40 Bedside Glucose 124 99 93 White Blood Count 11.7 #H Red Blood Count 3.05 L Hemoglobin 8.3 L Hematocrit 26.9 L Mean Corpuscular Volume 88.2 Mean Corpuscular Hemoglobin 27.2 L Mean Corpuscular Hemoglobin Concent 30.9 L Red Cell Distribution Width 18.3 H Platelet Count 429 H Mean Platelet Volume 13.1 H Neutrophils % 81.1 H Lymphocytes % 6.1 L Monocytes % 9.8 Eosinophils % 1.8 Basophils % 0.3 Nucleated Red Blood Cells % 0.2 H Neutrophils # 9.5 H Lymphocytes # 0.7 L Monocytes # 1.2 H Eosinophils # 0.2 Basophils # 0.0 Nucleated Red Blood Cells # 0.0 Sodium Level 140 Potassium Level 4.0 Chloride Level 107 Carbon Dioxide Level 26 Anion Gap 11 Blood Urea Nitrogen 12 Creatinine 0.51 Glucose Level 91 Calcium Level 8.8 Phosphorus Level 3.1 Magnesium Level 1.8 Medications Medications Current Medications Acetaminophen (Tylenol Tab) 650 mg Q6H PRN PO PAIN LEVEL 1-3 OR FEVER Last administered on 02/06/17 23:54; Admin Dose 650 MG; Start 01/22/17 at 16:00; Status Future Hold Docusate Sodium (Colace) 100 mg Q12H PRN PO CONSTIPATION; Start 01/22/17 at 16 :00 Magnesium Hydroxide (Milk Of Mag) 30 ml DAILY PRN PO CONSTIPATION Last administered on 01/31/17 07:38; Admin Dose 30 ML; Start 01/22/17 at 16:00 Bisacodyl (Dulcolax) 5 mg DAILY PRN PO CONSTIPATION Last administered on 05:07; Admin Dose 5 MG; Start 01/22/17 at 16:00 Polyethylene Glycol (Miralax) 17 gm DAILY PO Last administered on 02/21/17 09 :22; Admin Dose 17 GM; Start 01/26/17 at 15:30 Sodium Biphosphate/ Sodium Phosphate (Fleet Enema) 133 ml DAILY PRN [place] CONSTIPATION Last administered on 01/27/17 06:17; Admin Dose 133 ML; Start at 20:30 Morphine Sulfate 2 mg 2 mg Q2H PRN IV PAIN LEVEL 7-10 Last administered on 08:32; Admin Dose 2 MG; Start 01/28/17 at 14:00 Ondansetron HCl/ Dextrose (Zofran Inj/D5W) 54 ml @ 108 mls/hr Q6H PRN IV NAUSEA AND/OR VOMITING; Start 01/31/17 at 12:00 Hydromorphone HCl (Dilaudid) 1 mg Q2H PRN IV PAIN LEVEL 6-10 Last administered on 02/22/17 14:32; Admin Dose 1 MG; Start 02/02/17 at 11:30 Acetaminophen (Tylenol Liquid) 650 mg Q4H PRN GTB PAIN AND OR ELEVATED TEMP Last administered on 02/06/17 16:19; Admin Dose 650 MG; Start 02/04/17 at 08:30 ; Status Future Hold Docusate Sodium 100 mg 100 mg BID NGT Last administered on 02/21/17 09:22; Admin Dose 100 MG; Start 02/05/17 at 09:00 Fat Emulsion Intravenous 250 ml @ 10 mls/hr Q24H IV Last administered on 02/21 20:31; Admin Dose 10 MLS/HR; Start 02/05/17 at 20:00 Total Parenteral Nutrition (Tpn) 1,000 ml @ 40 mls/hr Q24H IV Last administered on 02/21/17 17:08; Admin Dose 40 MLS/HR; Start 02/05/17 at 20:00 Diagnostic Test (Pha) (Accu-Chek) 1 ea Q8 XX Last administered on 02/22/17 14 :41; Admin Dose 1 EA; Start 02/07/17 at 22:00 Ondansetron HCl (Zofran Inj) 4 mg Q6H PRN IV NAUSEA AND/OR VOMITING Last administered on 02/17/17 13:09; Admin Dose 4 MG; Start 02/13/17 at 14:30 Furosemide 40 mg 40 mg DAILY@06 PO Last administered on 02/22/17 05:21; Admin Dose 40 MG; Start 02/19/17 at 11:30 Vancomycin HCl/ Sodium Chloride (Vancocin/NS) 250 ml @ 83.333 mls/ hr Q12H IVPB Last administered on 02/22/17 14:31; Admin Dose 83.333 MLS/HR; Start at 11:30 Enoxaparin Sodium (Lovenox) 65 mg Q12H SC Last administered on 02/22/17 05:19 ; Admin Dose 65 MG; Start 02/21/17 at 16:00 Miscellaneous Information (*Rx Drug Level Order Reminder*) VANCOMYCIN TROUGH ON 02/05... ONCE ONCE XX ; Start 02/23/17 at 10:30; Stop 02/23/17 at 10:31 RAUL EUCEDA MD Feb 22, 2017 15:41
--- NOTE | 2017-02-22 16:17 | PN ---
Date/Time of Note Date/Time of Note DATE: 02/22/17 TIME: 16:13 Assessment/Plan VTE Prophylaxis VTE Prophylaxis Intervention: SCD's Lines/Catheters IV Catheter Type (from Nrsg): Peripheral IV Urinary Cath still in place: Yes Reason Cath still needed: urinary retention Assessment/Plan Assessment/Plan 56 yo F with known stage 4 ovarian Ca admitted for abd pain from malignant ascites. sp para 10.19, sp ureteral stenting, sp debulking surgery on February 03. Hospitalization c/b delirium which is resolving. Now with sepsis 2/2 CONS bacteremia from central line, which has been removed #sepsis 2/2 CONS bacteremia -repeat cultures in process -narrow abx to vanc -check TTE -source was likely central line which has been pulled #delirium: likely toxic/metabolic encephalopathy of multifactorial origin -MRI brain unremarkable -neuro eval also consistent with delirium #high grade serious ovarian Ca sp debulking 02.03 -pt remains on TPN per dental hygienist mobile coordinator onc. advance PO as tolerated -pt, son, and patient's sister still deciding on where they want to obtain oncology care -cont pain meds #hydro from ovarian mass: sp bl jj stents, appreciate assistance and sen #PEs: sp IVC filter placement LMWH at treatment dose suspect indefinite length of therapy as VTEs most likely 2/2 underlying malignancy #subclinical hypothyroid: outpatient f/u #anemia: ACD v other. heme on consult #FEN: ADVANCING DIET dispo: PT/OT evals ongoing, will likely need SNF once TPN is weaned. disability paperwork completed Subjective 24 Hr Interval Summary Free Text/Dictation Remains delirious, did not know she was in a hospital Exam/Review of Systems Vital Signs Vitals Vital Signs Date Time Temp Pulse Resp B/P Pulse Ox O2 Delivery O2 Flow Rate FiO2 02/22/17 07:31 97.9 95 16 126/74 96 02/21/17 14:00 Room Air Intake and Output 02/21/17 02/21/17 02/22/17 15:00 23:00 07:00 Intake Total 1400 ml 1055 ml Output Total 1204 ml 765 ml Balance 196 ml 290 ml Exam confused no mrg lungs clear abd soft no rashes blood cultures now CONS, not staph aureus Results Result Diagram: 02/22/17 0546 02/22/17 0546 Results 24 hrs Laboratory Tests Test 02/21/17 22:23 02/22/17 05:24 02/22/17 05:46 02/22/17 14:40 Bedside Glucose 124 99 93 White Blood Count 11.7 #H Red Blood Count 3.05 L Hemoglobin 8.3 L Hematocrit 26.9 L Mean Corpuscular Volume 88.2 Mean Corpuscular Hemoglobin 27.2 L Mean Corpuscular Hemoglobin Concent 30.9 L Red Cell Distribution Width 18.3 H Platelet Count 429 H Mean Platelet Volume 13.1 H Neutrophils % 81.1 H Lymphocytes % 6.1 L Monocytes % 9.8 Eosinophils % 1.8 Basophils % 0.3 Nucleated Red Blood Cells % 0.2 H Neutrophils # 9.5 H Lymphocytes # 0.7 L Monocytes # 1.2 H Eosinophils # 0.2 Basophils # 0.0 Nucleated Red Blood Cells # 0.0 Sodium Level 140 Potassium Level 4.0 Chloride Level 107 Carbon Dioxide Level 26 Anion Gap 11 Blood Urea Nitrogen 12 Creatinine 0.51 Glucose Level 91 Calcium Level 8.8 Phosphorus Level 3.1 Magnesium Level 1.8 Medications Medications Current Medications Acetaminophen (Tylenol Tab) 650 mg Q6H PRN PO PAIN LEVEL 1-3 OR FEVER Last administered on 02/06/17 23:54; Admin Dose 650 MG; Start 01/22/17 at 16:00; Status Future Hold Docusate Sodium (Colace) 100 mg Q12H PRN PO CONSTIPATION; Start 01/22/17 at 16 :00 Magnesium Hydroxide (Milk Of Mag) 30 ml DAILY PRN PO CONSTIPATION Last administered on 01/31/17 07:38; Admin Dose 30 ML; Start 01/22/17 at 16:00 Bisacodyl (Dulcolax) 5 mg DAILY PRN PO CONSTIPATION Last administered on 05:07; Admin Dose 5 MG; Start 01/22/17 at 16:00 Polyethylene Glycol (Miralax) 17 gm DAILY PO Last administered on 02/21/17 09 :22; Admin Dose 17 GM; Start 01/26/17 at 15:30 Sodium Biphosphate/ Sodium Phosphate (Fleet Enema) 133 ml DAILY PRN [place] CONSTIPATION Last administered on 01/27/17 06:17; Admin Dose 133 ML; Start at 20:30 Morphine Sulfate 2 mg 2 mg Q2H PRN IV PAIN LEVEL 7-10 Last administered on 08:32; Admin Dose 2 MG; Start 01/28/17 at 14:00 Ondansetron HCl/ Dextrose (Zofran Inj/D5W) 54 ml @ 108 mls/hr Q6H PRN IV NAUSEA AND/OR VOMITING; Start 01/31/17 at 12:00 Hydromorphone HCl (Dilaudid) 1 mg Q2H PRN IV PAIN LEVEL 6-10 Last administered on 02/22/17 14:32; Admin Dose 1 MG; Start 02/02/17 at 11:30 Acetaminophen (Tylenol Liquid) 650 mg Q4H PRN GTB PAIN AND OR ELEVATED TEMP Last administered on 02/06/17 16:19; Admin Dose 650 MG; Start 02/04/17 at 08:30 ; Status Future Hold Docusate Sodium 100 mg 100 mg BID NGT Last administered on 02/21/17 09:22; Admin Dose 100 MG; Start 02/05/17 at 09:00 Fat Emulsion Intravenous 250 ml @ 10 mls/hr Q24H IV Last administered on 02/21 20:31; Admin Dose 10 MLS/HR; Start 02/05/17 at 20:00 Total Parenteral Nutrition (Tpn) 1,000 ml @ 40 mls/hr Q24H IV Last administered on 02/21/17 17:08; Admin Dose 40 MLS/HR; Start 02/05/17 at 20:00 Diagnostic Test (Pha) (Accu-Chek) 1 ea Q8 XX Last administered on 02/22/17 14 :41; Admin Dose 1 EA; Start 02/07/17 at 22:00 Ondansetron HCl (Zofran Inj) 4 mg Q6H PRN IV NAUSEA AND/OR VOMITING Last administered on 02/17/17 13:09; Admin Dose 4 MG; Start 02/13/17 at 14:30 Furosemide 40 mg 40 mg DAILY@06 PO Last administered on 02/22/17 05:21; Admin Dose 40 MG; Start 02/19/17 at 11:30 Vancomycin HCl/ Sodium Chloride (Vancocin/NS) 250 ml @ 83.333 mls/ hr Q12H IVPB Last administered on 02/22/17 14:31; Admin Dose 83.333 MLS/HR; Start at 11:30 Enoxaparin Sodium (Lovenox) 65 mg Q12H SC Last administered on 02/22/17t 05:19 ; Admin Dose 65 MG; Start 02/21/17 at 16:00 Miscellaneous Information (*Rx Drug Level Order Reminder*) VANCOMYCIN TROUGH ON 02/05... ONCE ONCE XX ; Start 02/23/17 at 10:30; Stop 02/23/17 at 10:31 DAYANARA BROWN MD Feb 22, 2017 16:17
--- NOTE | 2017-02-22 17:16 | CONS ---
Date/Time of Note Date/Time of Note DATE: 02/22/17 TIME: 17:14 Assessment/Plan Assessment/Plan Chief Complaint/Hosp Course ID PROGRESS NOTE CURRENT ABX: DAY #4 => Vanco IV s/p Cancidas 24H INTERVAL SUMMARY * Doing well - up in chair A/A/O, Afebrile -> TMax today 99.8 == feeling much better * s/p -> spike Temp 102 02/19 -> BCx (+)Staph aureus, repeat BC x 02/20 (+)GPC - > TLC removed * Chest x-ray revealed mild pulmonary congestion, questionable left basilar pneumonia. * Hospital course events:s/p respiratory failure-> NOW Extubated & stable on room air , s/p IVC Filter for PE 02/12/17 Physical Exam Physical Exam Constitutional: Awake, alert, responsive, VSS, NAD, feels good HEENT: At, NC, anicteric Neck: Trach midline, neck supple Respiratory: Clear anterior, diminished BLL Cardiovascular: NSR on tele, radial pulses 2+ bilaterally Gastrointestinal: Soft, BS + Extremities: Warm, no cyanosis, trace edema Neurological: No focal deficits ID ASSESSMENT 56 yo F admit with 1. Recurrent Sepsis w/FEVER > 102 on 02/19 + leukocytosis => LINE sepsis, line removed * s/p Septic shock with fevers > 102.+ on admission, leukocytosis 2. Bacteremia with blood culture growing gram-positive cocci=> Line DC;d * 02/19 -> BCx (+)Staph aureus, repeat BC x 02/20 (+)GPC -> TLC removed 3. Metastatic ovarian cancer, status post ureteral dissection, omentectomy with splenectomy and cytoreduction on 02/02/2017. 4. Status post alpha hemolytic strep urinary tract infection on admission-> * Urine Cx 02/04/17 (-) 6. Bilateral hydronephrosis, status post JJ stent insertion on 01/24/2017. 7. s/p Respiratory failure-> Extubated and stable on room air 8. Anemia. ( )MRSA Nares->? ABX ALLERGIES: KNDA CURRENT ABX: DAY #3 => Vanco IV s/p Cancidas ID RECOMMENDATIONS 1. Continue current ABX over the weekend=> f/u on final ID still pending BLOOD CULTURE Preliminary BCULT GRAM BOTTLE 1 Gram positive cocci in clusters 1 of 2 bottles BCULT GRAM BOTTLE 2 Gram positive cocci in clusters 2 of 2 bottles . seen on gram stain of the broth Organism 1 STAPHYLOCOCCUS SPECIES \ . . Problems: Consultation Date/Type/Reason Admit Date/Time Jan 22, 2017 at 14:12 Initial Consult Date 02/03/17 Referring Provider: DAYANARA BROWN MD Exam/Review of Systems Vital Signs Vitals Vital Signs Date Time Temp Pulse Resp B/P Pulse Ox O2 Delivery O2 Flow Rate FiO2 02/22/17 07:31 97.9 95 16 126/74 96 02/21/17 14:00 Room Air Intake and Output 02/21/17 02/21/17 02/22/17 15:00 23:00 07:00 Intake Total 1400 ml 1055 ml Output Total 1204 ml 765 ml Balance 196 ml 290 ml Results Result Diagram: 02/22/17 0546 02/22/17 0546 Results 24 hrs Laboratory Tests Test 02/21/17 22:23 02/22/17 05:24 02/22/17 05:46 02/22/17 14:40 Bedside Glucose 124 99 93 White Blood Count 11.7 #H Red Blood Count 3.05 L Hemoglobin 8.3 L Hematocrit 26.9 L Mean Corpuscular Volume 88.2 Mean Corpuscular Hemoglobin 27.2 L Mean Corpuscular Hemoglobin Concent 30.9 L Red Cell Distribution Width 18.3 H Platelet Count 429 H Mean Platelet Volume 13.1 H Neutrophils % 81.1 H Lymphocytes % 6.1 L Monocytes % 9.8 Eosinophils % 1.8 Basophils % 0.3 Nucleated Red Blood Cells % 0.2 H Neutrophils # 9.5 H Lymphocytes # 0.7 L Monocytes # 1.2 H Eosinophils # 0.2 Basophils # 0.0 Nucleated Red Blood Cells # 0.0 Sodium Level 140 Potassium Level 4.0 Chloride Level 107 Carbon Dioxide Level 26 Anion Gap 11 Blood Urea Nitrogen 12 Creatinine 0.51 Glucose Level 91 Calcium Level 8.8 Phosphorus Level 3.1 Magnesium Level 1.8 Medications Medications Current Medications Acetaminophen (Tylenol Tab) 650 mg Q6H PRN PO PAIN LEVEL 1-3 OR FEVER Last administered on 02/06/17t 23:54; Admin Dose 650 MG; Start 01/22/17 at 16:00; Status Future Hold Docusate Sodium (Colace) 100 mg Q12H PRN PO CONSTIPATION; Start 01/22/17 at 16 :00 Magnesium Hydroxide (Milk Of Mag) 30 ml DAILY PRN PO CONSTIPATION Last administered on 01/31/17 07:38; Admin Dose 30 ML; Start 01/22/17 at 16:00 Bisacodyl (Dulcolax) 5 mg DAILY PRN PO CONSTIPATION Last administered on 05:07; Admin Dose 5 MG; Start 01/22/17 at 16:00 Polyethylene Glycol (Miralax) 17 gm DAILY PO Last administered on 02/21/17 09 :22; Admin Dose 17 GM; Start 01/26/17 at 15:30 Sodium Biphosphate/ Sodium Phosphate (Fleet Enema) 133 ml DAILY PRN [place] CONSTIPATION Last administered on 01/27/17 06:17; Admin Dose 133 ML; Start at 20:30 Morphine Sulfate 2 mg 2 mg Q2H PRN IV PAIN LEVEL 7-10 Last administered on 08:32; Admin Dose 2 MG; Start 01/28/17 at 14:00 Ondansetron HCl/ Dextrose (Zofran Inj/D5W) 54 ml @ 108 mls/hr Q6H PRN IV NAUSEA AND/OR VOMITING; Start 01/31/17 at 12:00 Hydromorphone HCl (Dilaudid) 1 mg Q2H PRN IV PAIN LEVEL 6-10 Last administered on 02/22/17 14:32; Admin Dose 1 MG; Start 02/02/17 at 11:30 Acetaminophen (Tylenol Liquid) 650 mg Q4H PRN GTB PAIN AND OR ELEVATED TEMP Last administered on 02/06/17 16:19; Admin Dose 650 MG; Start 02/04/17 at 08:30 ; Status Future Hold Docusate Sodium 100 mg 100 mg BID NGT Last administered on 02/21/17 09:22; Admin Dose 100 MG; Start 02/05/17 at 09:00 Fat Emulsion Intravenous 250 ml @ 10 mls/hr Q24H IV Last administered on 02/21 20:31; Admin Dose 10 MLS/HR; Start 02/05/17 at 20:00 Total Parenteral Nutrition (Tpn) 1,000 ml @ 40 mls/hr Q24H IV Last administered on 02/21/17 17:08; Admin Dose 40 MLS/HR; Start 02/05/17 at 20:00 Diagnostic Test (Pha) (Accu-Chek) 1 ea Q8 XX Last administered on 02/22/17 14 :41; Admin Dose 1 EA; Start 02/07/17 at 22:00 Ondansetron HCl (Zofran Inj) 4 mg Q6H PRN IV NAUSEA AND/OR VOMITING Last administered on 02/17/17 13:09; Admin Dose 4 MG; Start 02/13/17 at 14:30 Furosemide 40 mg 40 mg DAILY@06 PO Last administered on 02/22/17 05:21; Admin Dose 40 MG; Start 02/19/17 at 11:30 Vancomycin HCl/ Sodium Chloride (Vancocin/NS) 250 ml @ 83.333 mls/ hr Q12H IVPB Last administered on 02/22/17 14:31; Admin Dose 83.333 MLS/HR; Start at 11:30 Enoxaparin Sodium (Lovenox) 65 mg Q12H SC Last administered on 02/22/17 05:19 ; Admin Dose 65 MG; Start 02/21/17 at 16:00 Miscellaneous Information (*Rx Drug Level Order Reminder*) VANCOMYCIN TROUGH ON 02/05... ONCE ONCE XX ; Start 02/23/17 at 10:30; Stop 02/23/17 at 10:31 LINDA ESTES NP Feb 22, 2017 17:16
[2017-02-22 19:41] VITALS: BP 108/68; RESP 16
[2017-02-22] MEDS: FAT EMULSION 20% 250 ML IV SCH (20:17)
[2017-02-22] MEDS: TPN 1,000 ML IV SCH (20:18)
[2017-02-22] MEDS ORDERED: LORAZEPAM 2 MG INJ IV ONE (23:00)
[2017-02-23 01:43] VITALS: BP 121/80; RESP 19
[2017-02-23] MEDS: ENOXAPARIN 80 MG/0.8 ML SYG SC SCH ×2 (05:57→15:24)
[2017-02-23] MEDS: ACCU-CHEK XX SCH ×3 (05:57→23:30)
[2017-02-23 06:00] VITALS: BP 132/87; PULSE 99
[2017-02-23] MEDS: FUROSEMIDE 40 MG TAB PO SCH (06:00)
[2017-02-23 08:00] VITALS: BP 126/67; RESP 18
[2017-02-23] MEDS: POLYETHYLENE GLYCOL 17 GM PACKET PO SCH (09:00)
[2017-02-23] MEDS: DOCUSATE SODIUM 10 MG/ML (10ML CUP) NGT SCH ×2 (09:00→20:45)
[2017-02-23] MEDS: VANCOMYCIN 1.25 GM in SOD CHLORIDE 0.9% 250 ML IVPB SCH (11:30)
[2017-02-23 11:39] LABS: BASOPHILS % 0.3 % (0.0-2.0); EOSINOPHILS # 0.1 10^3/ul (0.0-0.5); EOSINOPHILS % 0.8 % (0.0-7.0); LYMPHOCYTES # 0.9 10^3/ul (0.8-2.9); MEAN CORPUSCULAR HEMOGLOBIN 26.8 pg (29.0-33.0); MEAN CORPUSCULAR VOLUME 86.3 fl (82.0-101.0); MEAN PLATELET VOLUME 12.9 fl (7.4-10.4); MONOCYTE # 1.3 10^3/ul (0.3-0.9); MONOCYTES % 10.3 % (0.0-11.0); NEUTROPHIL # 9.9 10^3/ul (1.6-7.5); NEUTROPHILS % 80.5 % (39.0-77.0); PLATELET COUNT 436 10^3/UL (140-415); RED BLOOD COUNT 3.36 10^6/ul (4.20-5.40); RED CELL DISTRIBUTION WIDTH 18.4 % (11.5-14.5); WHITE BLOOD COUNT 12.4 10^3/ul (4.8-10.8)
[2017-02-23 12:14] LABS: CALCIUM 8.7 mg/dl (8.4-10.2); CREATININE 0.53 mg/dl (0.44-1.00); MAGNESIUM 1.9 mg/dl (1.7-2.5); PHOSPHORUS 3.8 mg/dl (2.5-4.9); POTASSIUM 3.9 mmol/L (3.5-5.1)
[2017-02-23] MEDS: HYDROmorphONE 0.5 MG/0.5 ML SYG IV PRN (15:16)
[2017-02-23] MEDS: VANCOMYCIN 750 MG in DEXTROSE 5% 150 ML IVPB SCH (15:26)
[2017-02-23 15:29] VITALS: BP 123/70; RESP 19
--- NOTE | 2017-02-23 15:43 | PN ---
Date/Time of Note Date/Time of Note DATE: 02/23/17 TIME: 15:39 Assessment/Plan VTE Prophylaxis VTE Prophylaxis Intervention: LMWH Lines/Catheters IV Catheter Type (from Nrs): Peripheral IV Urinary Cath still in place: Yes Reason Cath still needed: urinary retention Assessment/Plan Chief Complaint/Hosp Course Hospitalist team service coverage Subjective: Events noted Objective: Vital signs stable Physical exam No pallor. Positive bitemporal wasting Regular Diminished but clear Bowel sounds diminished mild diffuse tender nondistended no RR G No edema Assessment and plan 1. Recurrent metastatic ovarian cancer. Status post ureteral dissection, omentectomy, splenectomy, cytoreduction 02/02. Stable treat pain. Refused chemo. Prognosis guarded. 2. PE. IVC filter status 3. Delirium. Continue reorientation and reassurance 4. Sirs 5. Stage IV ovarian cancer. Palliative care? 6. Past tobacco 7. Anemia 8. Obstructive uropathy status post double-J stent 9. Malnutrition continue TPN 10. Subclinical hypothyroidism 11. Splenectomy status Problems: Exam/Review of Systems Vital Signs Vitals Vital Signs Date Time Temp Pulse Resp B/P Pulse Ox O2 Delivery O2 Flow Rate FiO2 02/23/17 15:29 97.9 106 19 123/70 97 02/21/17 14:00 Room Air Intake and Output 02/22/17 02/22/17 02/23/17 15:00 23:00 07:00 Intake Total 1040 ml 820 ml Output Total 1350 ml 615 ml Balance -310 ml 205 ml Results Result Diagram: 02/23/17 1058 02/23/17 1050 Results 24 hrs Laboratory Tests Test 02/22/17 22:50 02/23/17 05:55 02/23/17 10:50 02/23/17 10:58 Bedside Glucose 99 96 Sodium Level 140 Potassium Level 3.9 Chloride Level 106 Carbon Dioxide Level 26 Anion Gap 12 Blood Urea Nitrogen 12 Creatinine 0.53 Glucose Level 92 Calcium Level 8.7 Phosphorus Level 3.8 Magnesium Level 1.9 White Blood Count 12.4 H Red Blood Count 3.36 L Hemoglobin 9.0 L Hematocrit 29.0 L Mean Corpuscular Volume 86.3 Mean Corpuscular Hemoglobin 26.8 L Mean Corpuscular Hemoglobin Concent 31.0 L Red Cell Distribution Width 18.4 H Platelet Count 436 H Mean Platelet Volume 12.9 H Neutrophils % 80.5 H Lymphocytes % 7.0 L Monocytes % 10.3 Eosinophils % 0.8 Basophils % 0.3 Nucleated Red Blood Cells % 0.0 Neutrophils # 9.9 H Lymphocytes # 0.9 Monocytes # 1.3 H Eosinophils # 0.1 Basophils # 0.0 Nucleated Red Blood Cells # 0.0 Vancomycin Level Trough 18.4 Test 02/23/17 15:07 Bedside Glucose 98 Medications Medications Current Medications Acetaminophen (Tylenol Tab) 650 mg Q6H PRN PO PAIN LEVEL 1-3 OR FEVER Last administered on 02/06/17 23:54; Admin Dose 650 MG; Start 01/22/17 at 16:00; Status Future Hold Docusate Sodium (Colace) 100 mg Q12H PRN PO CONSTIPATION; Start 01/22/17 at 16 :00 Magnesium Hydroxide (Milk Of Mag) 30 ml DAILY PRN PO CONSTIPATION Last administered on 01/31/17 07:38; Admin Dose 30 ML; Start 01/22/17 at 16:00 Bisacodyl (Dulcolax) 5 mg DAILY PRN PO CONSTIPATION Last administered on 05:07; Admin Dose 5 MG; Start 01/22/17 at 16:00 Polyethylene Glycol (Miralax) 17 gm DAILY PO Last administered on 02/21/17 09 :22; Admin Dose 17 GM; Start 01/26/17 at 15:30 Sodium Biphosphate/ Sodium Phosphate (Fleet Enema) 133 ml DAILY PRN [place] CONSTIPATION Last administered on 01/27/17 06:17; Admin Dose 133 ML; Start at 20:30 Morphine Sulfate 2 mg 2 mg Q2H PRN IV PAIN LEVEL 7-10 Last administered on 08:32; Admin Dose 2 MG; Start 01/28/17 at 14:00 Ondansetron HCl/ Dextrose (Zofran Inj/D5W) 54 ml @ 108 mls/hr Q6H PRN IV NAUSEA AND/OR VOMITING; Start 01/31/17 at 12:00 Hydromorphone HCl (Dilaudid) 1 mg Q2H PRN IV PAIN LEVEL 6-10 Last administered on 02/23/17 15:16; Admin Dose 1 MG; Start 02/02/17 at 11:30 Acetaminophen (Tylenol Liquid) 650 mg Q4H PRN GTB PAIN AND OR ELEVATED TEMP Last administered on 02/06/17 16:19; Admin Dose 650 MG; Start 02/04/17 at 08:30 ; Status Future Hold Docusate Sodium 100 mg 100 mg BID NGT Last administered on 02/21/17 09:22; Admin Dose 100 MG; Start 02/05/17 at 09:00 Fat Emulsion Intravenous 250 ml @ 10 mls/hr Q24H IV Last administered on 02/22 20:17; Admin Dose 10 MLS/HR; Start 02/05/17 at 20:00 Total Parenteral Nutrition (Tpn) 1,000 ml @ 40 mls/hr Q24H IV Last administered on 02/22/17 20:18; Admin Dose 40 MLS/HR; Start 02/05/17 at 20:00 Diagnostic Test (Pha) (Accu-Chek) 1 ea Q8 XX Last administered on 02/23/17 14 :00; Admin Dose 1 EA; Start 02/07/17 at 22:00 Ondansetron HCl (Zofran Inj) 4 mg Q6H PRN IV NAUSEA AND/OR VOMITING Last administered on 02/17/17 13:09; Admin Dose 4 MG; Start 02/13/17 at 14:30 Furosemide (Lasix) 40 mg DAILY@06 PO Last administered on 02/22/17 05:21; Admin Dose 40 MG; Start 02/19/17 at 11:30 Enoxaparin Sodium 65 mg 65 mg Q12H SC Last administered on 02/23/17 15:24; Admin Dose 65 MG; Start 02/21/17 at 16:00 Vancomycin HCl/ Dextrose/Water (Vancocin/D5W) 150 ml @ 75 mls/hr Q12H IVPB Last administered on 02/23/17 15:26; Admin Dose 75 MLS/HR; Start 02/23/17 at 16:00 FRANKIE MENDOZA MD Feb 23, 2017 15:43
[2017-02-23] MEDS: TPN 1,000 ML IV SCH (17:44)
[2017-02-23 20:00] VITALS: BP 129/82; RESP 20
[2017-02-23] MEDS: FAT EMULSION 20% 250 ML IV SCH (20:46)
--- NOTE | 2017-02-23 23:21 | CONS ---
Date/Time of Note Date/Time of Note DATE: 02/23/17 TIME: 23:20 Assessment/Plan Assessment/Plan Chief Complaint/Hosp Course ADVANCED OVARIAN CANCER WITH MALIGNANT ASCITES AND PERITONEAL carcinomatosis- Stage IIIc - IV ovarian cancer Large conglomerate pelvic mass inseparable from the uterus, sigmoid colon and rectum containing clumps of calcification suspicious for calcified fibroids and containing cystic areas. Large amount of free intraperitoneal fluid measuring 25 HU with caking of the omentum compatible with carcinomatosis. Centralization of bowel without evidence of bowel obstruction. Moderately severe right hydronephrosis and hydroureter to the level of the pelvic mass. There is moderate left pelvocaliectasis without ureteral dilatation. The bladder is quite distended with urine. POST cystoscopy and insertion of bilateral JJ stents. PER DR ABRAMS-If she gets better and respond to treatment then later on in the future she will need the stents removed and may be replaced CT CHEST - EDOUARD, EXCEPT SMALL L PLEURAL EFFUSION CA 125- 337 POST debulking surgery PATH- [id number] High grade serous carcinoma. D/W SON- HE IS REFUSING CHEMO POST IVC filter UNABLE TO PROCEED WITH CHEMO 2 TO SEPSIS/BACTEREMIA AND CONFUSION/ AMS ANEMIA, MICROCYTOSIS COMPLEX ANEMIA W-UP= + COMPONENT ACD DROP H/H POSTOP SERIAL H/H PRBC NEEDED PER STANDING ORDERS D/W RN LEUKOCYTOSIS REACTIVE, PARTIALLY 2 TO Splenectomy, partially 2 to infection CONFUSION NEURO F-UP MRI BRAIN- NO METS Recurrent Sepsis w/FEVER > 102 on 02/19 + leukocytosis => LINE sepsis, line removed * s/p Septic shock with fevers > 102.+ on admission, leukocytosis Bacteremia with blood culture growing gram-positive cocci=> Line DC;d * 02/19 -> BCx (+)Staph aureus, repeat BC x 02/20 (+)GPC -> TLC removed PELVIC ABSCESS- POST DRAINAGE malignant ascites sp para 10.19. hydro AUR from ascites, sp ureteral stenting. ILEUS NG TPN Problems: Consultation Date/Type/Reason Admit Date/Time Jan 22, 2017 at 14:12 Initial Consult Date 01/27/17 Referring Provider: DAYANARA BROWN MD 24 HR Interval Summary Free Text/Dictation ALL NOTED D/W SITTER STILL CONFUSED LOOKS BETTER OVERALL Exam/Review of Systems Vital Signs Vitals Vital Signs Date Time Temp Pulse Resp B/P Pulse Ox O2 Delivery O2 Flow Rate FiO2 02/23/17 15:29 97.9 106 19 123/70 97 02/21/17 14:00 Room Air Intake and Output 02/22/17 02/22/17 02/23/17 15:00 23:00 07:00 Intake Total 1040 ml 820 ml Output Total 1350 ml 615 ml Balance -310 ml 205 ml Exam GENERAL: Chronically ill-appearing lady, CONFUSED, NOT IN PAIN VITAL SIGNS: per chart NECK: Supple. No JVD or lymphadenopathy. CARDIAC EXAM: S1, S2. No added sounds or murmurs. CHEST: Bilateral rales. ABDOMEN: Soft, nontender. No guarding or rebound. EXTREMITIES: No cyanosis, clubbing or edema. NEUROLOGIC: Generalized weakness. Results Result Diagram: 02/23/17 1058 02/23/17 1050 Results 24 hrs Laboratory Tests Test 02/23/17 05:55 02/23/17 10:50 02/23/17 10:58 02/23/17 15:07 Bedside Glucose 96 98 Sodium Level 140 Potassium Level 3.9 Chloride Level 106 Carbon Dioxide Level 26 Anion Gap 12 Blood Urea Nitrogen 12 Creatinine 0.53 Glucose Level 92 Calcium Level 8.7 Phosphorus Level 3.8 Magnesium Level 1.9 White Blood Count 12.4 H Red Blood Count 3.36 L Hemoglobin 9.0 L Hematocrit 29.0 L Mean Corpuscular Volume 86.3 Mean Corpuscular Hemoglobin 26.8 L Mean Corpuscular Hemoglobin Concent 31.0 L Red Cell Distribution Width 18.4 H Platelet Count 436 H Mean Platelet Volume 12.9 H Neutrophils % 80.5 H Lymphocytes % 7.0 L Monocytes % 10.3 Eosinophils % 0.8 Basophils % 0.3 Nucleated Red Blood Cells % 0.0 Neutrophils # 9.9 H Lymphocytes # 0.9 Monocytes # 1.3 H Eosinophils # 0.1 Basophils # 0.0 Nucleated Red Blood Cells # 0.0 Vancomycin Level Trough 18.4 Medications Medications Current Medications Acetaminophen (Tylenol Tab) 650 mg Q6H PRN PO PAIN LEVEL 1-3 OR FEVER Last administered on 02/06/17t 23:54; Admin Dose 650 MG; Start 01/22/17 at 16:00; Status Future Hold Docusate Sodium (Colace) 100 mg Q12H PRN PO CONSTIPATION; Start 01/22/17 at 16 :00 Magnesium Hydroxide (Milk Of Mag) 30 ml DAILY PRN PO CONSTIPATION Last administered on 01/31/17 07:38; Admin Dose 30 ML; Start 01/22/17 at 16:00 Bisacodyl (Dulcolax) 5 mg DAILY PRN PO CONSTIPATION Last administered on 05:07; Admin Dose 5 MG; Start 01/22/17 at 16:00 Polyethylene Glycol (Miralax) 17 gm DAILY PO Last administered on 02/21/17 09 :22; Admin Dose 17 GM; Start 01/26/17 at 15:30 Sodium Biphosphate/ Sodium Phosphate (Fleet Enema) 133 ml DAILY PRN [place] CONSTIPATION Last administered on 01/27/17 06:17; Admin Dose 133 ML; Start at 20:30 Morphine Sulfate 2 mg 2 mg Q2H PRN IV PAIN LEVEL 7-10 Last administered on 08:32; Admin Dose 2 MG; Start 01/28/17 at 14:00 Ondansetron HCl/ Dextrose (Zofran Inj/D5W) 54 ml @ 108 mls/hr Q6H PRN IV NAUSEA AND/OR VOMITING; Start 01/31/17 at 12:00 Hydromorphone HCl (Dilaudid) 1 mg Q2H PRN IV PAIN LEVEL 6-10 Last administered on 02/23/17 15:16; Admin Dose 1 MG; Start 02/02/17 at 11:30 Acetaminophen (Tylenol Liquid) 650 mg Q4H PRN GTB PAIN AND OR ELEVATED TEMP Last administered on 02/06/17 16:19; Admin Dose 650 MG; Start 02/04/17 at 08:30 ; Status Future Hold Docusate Sodium 100 mg 100 mg BID NGT Last administered on 02/23/17 20:45; Admin Dose 100 MG; Start 02/05/17 at 09:00 Fat Emulsion Intravenous 250 ml @ 10 mls/hr Q24H IV Last administered on 02/23 20:46; Admin Dose 10 MLS/HR; Start 02/05/17 at 20:00 Total Parenteral Nutrition (Tpn) 1,000 ml @ 40 mls/hr Q24H IV Last administered on 02/23/17 17:44; Admin Dose 40 MLS/HR; Start 02/05/17 at 20:00 Diagnostic Test (Pha) (Accu-Chek) 1 ea Q8 XX Last administered on 02/23/17 14 :00; Admin Dose 1 EA; Start 02/07/17 at 22:00 Ondansetron HCl (Zofran Inj) 4 mg Q6H PRN IV NAUSEA AND/OR VOMITING Last administered on 02/17/17 13:09; Admin Dose 4 MG; Start 02/13/17 at 14:30 Furosemide (Lasix) 40 mg DAILY@06 PO Last administered on 02/22/17 05:21; Admin Dose 40 MG; Start 02/19/17 at 11:30 Enoxaparin Sodium 65 mg 65 mg Q12H SC Last administered on 02/23/17 15:24; Admin Dose 65 MG; Start 02/21/17 at 16:00 Vancomycin HCl/ Dextrose/Water (Vancocin/D5W) 150 ml @ 75 mls/hr Q12H IVPB Last administered on 02/23/17 15:26; Admin Dose 75 MLS/HR; Start 02/23/17 at 16:00 Lactobacillus Acidophilus/ Rhamnosus (Culturelle) 1 cap BID PO ; Start at 21:00 Famotidine (Pepcid Iv) 20 mg DAILY IV ; Start 02/24/17 at 09:00 RAMIREZ YBARRA MD Feb 23, 2017 23:21
[2017-02-24 03:52] VITALS: BP 123/80; RESP 20
[2017-02-24] MEDS: VANCOMYCIN 750 MG in DEXTROSE 5% 150 ML IVPB SCH ×2 (04:17→15:43)
[2017-02-24] MEDS: FUROSEMIDE 40 MG TAB PO SCH (04:17)
[2017-02-24] MEDS: ENOXAPARIN 80 MG/0.8 ML SYG SC SCH ×2 (04:18→15:44)
[2017-02-24] MEDS: ONDANSETRON 4 MG INJ IV PRN (04:29)
[2017-02-24] MEDS: HYDROmorphONE 0.5 MG/0.5 ML SYG IV PRN ×3 (04:29→20:09)
[2017-02-24] MEDS: ACCU-CHEK XX SCH ×3 (05:33→22:00)
[2017-02-24 05:57] LABS: BASOPHILS % 0.2 % (0.0-2.0); EOSINOPHILS # 0.1 10^3/ul (0.0-0.5); EOSINOPHILS % 1.1 % (0.0-7.0); HEMATOCRIT 28.3 % (37.0-47.0); HEMOGLOBIN 8.8 g/dl (12.0-16.0); LYMPHOCYTES # 0.8 10^3/ul (0.8-2.9); LYMPHOCYTES % 6.7 % (15.0-51.0); MEAN CORPUSCULAR HEMOGLOBIN 26.7 pg (29.0-33.0); MEAN CORPUSCULAR HGB CONC 31.1 g/dl (32.0-37.0); MEAN PLATELET VOLUME 12.6 fl (7.4-10.4); MONOCYTE # 1.4 10^3/ul (0.3-0.9); MONOCYTES % 11.4 % (0.0-11.0); NEUTROPHIL # 9.5 10^3/ul (1.6-7.5); NEUTROPHILS % 79.4 % (39.0-77.0); NUCLEATED RED BLOOD CELLS% 0.2 /100WBC (0.0-0.0); PLATELET COUNT 402 10^3/UL (140-415); RED BLOOD COUNT 3.29 10^6/ul (4.20-5.40); RED CELL DISTRIBUTION WIDTH 18.3 % (11.5-14.5)
[2017-02-24 06:45] LABS: ALBUMIN 2.5 g/dl (3.3-4.9); ALBUMIN/GLOBULIN RATIO 0.67; BILIRUBIN,INDIRECT 0.1 mg/dl (0-1.1); BILIRUBIN,TOTAL 0.1 mg/dl (0.2-1.3); CALCIUM 8.7 mg/dl (8.4-10.2); CREATININE 0.49 mg/dl (0.44-1.00); MAGNESIUM 1.8 mg/dl (1.7-2.5); PHOSPHORUS 3.6 mg/dl (2.5-4.9); TOTAL PROTEIN 6.2 g/dl (6.1-8.1)
--- NOTE | 2017-02-24 07:01 | PN ---
DATE: 02/23/2017 SUBJECTIVE: No acute events overnight. The patient is awake, confused and in no distress. She is afebrile. VITAL SIGNS: WBC today 12.4, H and H 9 and 29, platelets 436, neutrophils 80.5. BUN 12, creatinine 0.53. MICROBIOLOGY: Blood culture on 02/19/2017 and 02/20/2017 grew coagulase-negative staph species. Re peat blood cultures negative. INDWELLINGS: The patient has intra-abdominal drainage catheter, Cullen and peripheral IV. ANTIMICROBIALS: Vancomycin. PHYSICAL EXAMINATION: GENERAL: This is a cachectic, wasted, well-developed, middle-aged woman who is in no distr ess. HEENT: Head atraumatic, normocephalic. Sclerae anicteric. Buccal mucosa dry. NECK: Supple. CHEST: Rise symmetrical. Breath sounds diminished to bases. HEART: S1, S2. ABDOMEN: Soft, bowel tones present. EXTREMITIES: No cyanosis. ASSESSMENT: 1. Systemic inflammatory response syndrome with ongoing leukocytosis. 2. Coagulase-negative staph bacteremia, status post triple lumen catheter discontinued. 3. Metastatic ovarian cancer status post ureteral dissection, appendectomy with splenectomy and cyt oreduction on 02/02/2017. 4. Status post alpha hemolytic strep urinary tract infection. 5. Bilateral hydronephrosis, status post JJ stent insertion on 01/30/2017. 6. Anemia. 7. Status post respiratory failure. 8. Status post CT-guided drainage of intra-abdominal abscess on 02/10/2017. PLAN: The patient remains stable. Continue present care. Continue vancomycin. Repeat chest x-ray in a.m. Follow recommendations of specialists. Dictated By: CARLOS SOLIZ THREAD CLIPPER for DEONDRE JAMISON MD NI/NTS Conf#: [id number] DID#: [id number] CC: EMILIE ALBERT MD; DAYANARA BROWN MD;*End*
[2017-02-24 07:38] VITALS: BP 118/75; RESP 20
[2017-02-24] MEDS: FAMOTIDINE 20 MG INJ IV SCH (09:06)
[2017-02-24] MEDS: DOCUSATE SODIUM 10 MG/ML (10ML CUP) NGT SCH ×2 (09:06→19:41)
[2017-02-24] MEDS: POLYETHYLENE GLYCOL 17 GM PACKET PO SCH (09:06)
[2017-02-24 14:00] VITALS: BP 131/71; RESP 20
--- NOTE | 2017-02-24 14:01 | CONS ---
Date/Time of Note Date/Time of Note DATE: 02/24/17 TIME: 14:00 Assessment/Plan Assessment/Plan Chief Complaint/Hosp Course SUBJECTIVE: No acute events overnight. The patient is alert, feels good, no n/ v/d, no fevers. MICROBIOLOGY: Blood culture on 02/19/2017 and 02/20/2017 grew coagulase- negative staph species. Repeat blood cultures negative. INDWELLINGS: The patient has intra-abdominal drainage catheter, Cullen and peripheral IV. ANTIMICROBIALS: Vancomycin. PHYSICAL EXAMINATION: GENERAL: This is a cachectic, wasted, well-developed, middle-aged woman who is in no distress. HEENT: Head atraumatic, normocephalic. Sclerae anicteric. Buccal mucosa dry. NECK: Supple. CHEST: Rise symmetrical. Breath sounds diminished to bases. HEART: S1, S2. ABDOMEN: Soft, bowel tones present. EXTREMITIES: No cyanosis. ASSESSMENT: 1. Systemic inflammatory response syndrome with ongoing leukocytosis. 2. Coagulase-negative staph bacteremia, status post triple lumen catheter discontinued. 3. Metastatic ovarian cancer status post ureteral dissection, appendectomy with splenectomy and cytoreduction on 02/02/2017. 4. Status post alpha hemolytic strep urinary tract infection. 5. Bilateral hydronephrosis, status post JJ stent insertion on 01/30/2017. 6. Anemia. 7. Status post respiratory failure. 8. Status post CT-guided drainage of intra-abdominal abscess on 02/10/2017. PLAN: The patient remains stable. Continue present care. Continue vancomycin to complete treatment for line sepsis. Follow recommendations of specialists. DW staff/pt Problems: Consultation Date/Type/Reason Admit Date/Time Jan 22, 2017 at 14:12 Initial Consult Date 02/03/17 Type of Consultation: ID Referring Provider: DAYANARA BROWN MD Exam/Review of Systems Vital Signs Vitals Vital Signs Date Time Temp Pulse Resp B/P Pulse Ox O2 Delivery O2 Flow Rate FiO2 02/24/17 07:38 97.8 91 20 118/75 98 02/21/17 14:00 Room Air Intake and Output 02/23/17 02/23/17 02/24/17 14:59 22:59 06:59 Intake Total 1240 ml 750 ml Output Total 2118 ml 1200 ml Balance -878 ml -450 ml Results Result Diagram: 02/24/17 0512 02/24/17 0512 Results 24 hrs Laboratory Tests Test 02/23/17 15:07 02/23/17 23:22 02/24/17 05:12 02/24/17 05:14 Bedside Glucose 98 96 95 White Blood Count 12.0 H Red Blood Count 3.29 L Hemoglobin 8.8 L Hematocrit 28.3 L Mean Corpuscular Volume 86.0 Mean Corpuscular Hemoglobin 26.7 L Mean Corpuscular Hemoglobin Concent 31.1 L Red Cell Distribution Width 18.3 H Platelet Count 402 Mean Platelet Volume 12.6 H Neutrophils % 79.4 H Lymphocytes % 6.7 L Monocytes % 11.4 H Eosinophils % 1.1 Basophils % 0.2 Nucleated Red Blood Cells % 0.2 H Neutrophils # 9.5 H Lymphocytes # 0.8 Monocytes # 1.4 H Eosinophils # 0.1 Basophils # 0.0 Nucleated Red Blood Cells # 0.0 Sodium Level 139 Potassium Level 4.0 Chloride Level 105 Carbon Dioxide Level 27 Anion Gap 11 Blood Urea Nitrogen 9 Creatinine 0.49 Glucose Level 94 Calcium Level 8.7 Phosphorus Level 3.6 Magnesium Level 1.8 Total Bilirubin 0.1 L Direct Bilirubin 0.00 Indirect Bilirubin 0.1 Aspartate Amino Transf (AST/SGOT) 26 Alanine Aminotransferase (ALT/SGPT) 56 Alkaline Phosphatase 204 H Total Protein 6.2 Albumin 2.5 L Globulin 3.70 H Albumin/Globulin Ratio 0.67 Medications Medications Current Medications Acetaminophen (Tylenol Tab) 650 mg Q6H PRN PO PAIN LEVEL 1-3 OR FEVER Last administered on 02/06/17 23:54; Admin Dose 650 MG; Start 01/22/17 at 16:00; Status Future Hold Docusate Sodium (Colace) 100 mg Q12H PRN PO CONSTIPATION; Start 01/22/17 at 16 :00 Magnesium Hydroxide (Milk Of Mag) 30 ml DAILY PRN PO CONSTIPATION Last administered on 01/31/17 07:38; Admin Dose 30 ML; Start 01/22/17 at 16:00 Bisacodyl (Dulcolax) 5 mg DAILY PRN PO CONSTIPATION Last administered on 05:07; Admin Dose 5 MG; Start 01/22/17 at 16:00 Polyethylene Glycol (Miralax) 17 gm DAILY PO Last administered on 02/24/17 09 :06; Admin Dose 17 GM; Start 01/26/17 at 15:30 Sodium Biphosphate/ Sodium Phosphate (Fleet Enema) 133 ml DAILY PRN [place] CONSTIPATION Last administered on 01/27/17 06:17; Admin Dose 133 ML; Start at 20:30 Morphine Sulfate 2 mg 2 mg Q2H PRN IV PAIN LEVEL 7-10 Last administered on 08:32; Admin Dose 2 MG; Start 01/28/17 at 14:00 Ondansetron HCl/ Dextrose (Zofran Inj/D5W) 54 ml @ 108 mls/hr Q6H PRN IV NAUSEA AND/OR VOMITING; Start 01/31/17 at 12:00 Hydromorphone HCl (Dilaudid) 1 mg Q2H PRN IV PAIN LEVEL 6-10 Last administered on 02/24/17 11:32; Admin Dose 1 MG; Start 02/02/17 at 11:30 Acetaminophen (Tylenol Liquid) 650 mg Q4H PRN GTB PAIN AND OR ELEVATED TEMP Last administered on 02/06/17 16:19; Admin Dose 650 MG; Start 02/04/17 at 08:30 ; Status Future Hold Docusate Sodium 100 mg 100 mg BID NGT Last administered on 02/24/17 09:06; Admin Dose 100 MG; Start 02/05/17 at 09:00 Fat Emulsion Intravenous 250 ml @ 10 mls/hr Q24H IV Last administered on 02/23 20:46; Admin Dose 10 MLS/HR; Start 02/05/17 at 20:00 Total Parenteral Nutrition (Tpn) 1,000 ml @ 40 mls/hr Q24H IV Last administered on 02/23/17 17:44; Admin Dose 40 MLS/HR; Start 02/05/17 at 20:00 Diagnostic Test (Pha) (Accu-Chek) 1 ea Q8 XX Last administered on 02/24/17 05 :33; Admin Dose 1 EA; Start 02/07/17 at 22:00 Ondansetron HCl (Zofran Inj) 4 mg Q6H PRN IV NAUSEA AND/OR VOMITING Last administered on 02/24/17 04:29; Admin Dose 4 MG; Start 02/13/17 at 14:30 Furosemide (Lasix) 40 mg DAILY@06 PO Last administered on 02/24/17 04:17; Admin Dose 40 MG; Start 02/19/17 at 11:30 Enoxaparin Sodium 65 mg 65 mg Q12H SC Last administered on 02/24/17 04:18; Admin Dose 65 MG; Start 02/21/17 at 16:00 Vancomycin HCl/ Dextrose/Water (Vancocin/D5W) 150 ml @ 75 mls/hr Q12H IVPB Last administered on 02/24/17 04:17; Admin Dose 75 MLS/HR; Start 02/23/17 at 16:00 Lactobacillus Acidophilus/ Rhamnosus (Culturelle) 1 cap BID PO ; Start at 21:00 Famotidine (Pepcid Iv) 20 mg DAILY IV Last administered on 02/24/17 09:06; Admin Dose 20 MG; Start 02/24/17 at 09:00 CARLOS SOLIZ NP Feb 24, 2017 14:01
--- NOTE | 2017-02-24 14:54 | PN ---
Date/Time of Note Date/Time of Note DATE: 02/24/17 TIME: 14:52 Assessment/Plan VTE Prophylaxis VTE Prophylaxis Intervention: LMWH Lines/Catheters IV Catheter Type (from Nrs): Peripheral IV Urinary Cath still in place: Yes Reason Cath still needed: urinary retention Assessment/Plan Chief Complaint/Hosp Course Hospitalist team service coverage S: 02/23: Events noted 02/24: no events O: Vss PE No pallor. Positive bitemporal wasting Reg Dimin but clear Bs dimin; diffuse tender nd no R/R/G No edema Assessment and plan 1. Recurrent metastatic ovarian Ca. S/p ureteral dissection, omentectomy, splenectomy, cytoreduction 02/02. Stable treat pain. Refused chemo. Prognosis guarded. 2. PE. IVC filter status 3. Delirium. Cont reorientation and reassurance 4. Sirs 5. Stage IV ovarian Ca. Palliative care? 6. Past tobacco 7. Anemia 8. Obstructive uropathy status post double-J stent 9. Malnutrition continue TPN 10. Subclinical hypothyroidism 11. Splenectomy status 12. FTT; snf? Problems: Exam/Review of Systems Vital Signs Vitals Vital Signs Date Time Temp Pulse Resp B/P Pulse Ox O2 Delivery O2 Flow Rate FiO2 02/24/17 14:00 98.0 88 20 131/71 98 02/21/17 14:00 Room Air Intake and Output 02/23/17 02/23/17 02/24/17 15:00 23:00 07:00 Intake Total 1240 ml 750 ml Output Total 2118 ml 1200 ml Balance -878 ml -450 ml Results Result Diagram: 02/24/17 0512 02/24/17 0512 Results 24 hrs Laboratory Tests Test 02/23/17 15:07 02/23/17 23:22 02/24/17 05:12 02/24/17 05:14 Bedside Glucose 98 96 95 White Blood Count 12.0 H Red Blood Count 3.29 L Hemoglobin 8.8 L Hematocrit 28.3 L Mean Corpuscular Volume 86.0 Mean Corpuscular Hemoglobin 26.7 L Mean Corpuscular Hemoglobin Concent 31.1 L Red Cell Distribution Width 18.3 H Platelet Count 402 Mean Platelet Volume 12.6 H Neutrophils % 79.4 H Lymphocytes % 6.7 L Monocytes % 11.4 H Eosinophils % 1.1 Basophils % 0.2 Nucleated Red Blood Cells % 0.2 H Neutrophils # 9.5 H Lymphocytes # 0.8 Monocytes # 1.4 H Eosinophils # 0.1 Basophils # 0.0 Nucleated Red Blood Cells # 0.0 Sodium Level 139 Potassium Level 4.0 Chloride Level 105 Carbon Dioxide Level 27 Anion Gap 11 Blood Urea Nitrogen 9 Creatinine 0.49 Glucose Level 94 Calcium Level 8.7 Phosphorus Level 3.6 Magnesium Level 1.8 Total Bilirubin 0.1 L Direct Bilirubin 0.00 Indirect Bilirubin 0.1 Aspartate Amino Transf (AST/SGOT) 26 Alanine Aminotransferase (ALT/SGPT) 56 Alkaline Phosphatase 204 H Total Protein 6.2 Albumin 2.5 L Globulin 3.70 H Albumin/Globulin Ratio 0.67 Medications Medications Current Medications Acetaminophen (Tylenol Tab) 650 mg Q6H PRN PO PAIN LEVEL 1-3 OR FEVER Last administered on 02/06/17 23:54; Admin Dose 650 MG; Start 01/22/17 at 16:00; Status Future Hold Docusate Sodium (Colace) 100 mg Q12H PRN PO CONSTIPATION; Start 01/22/17 at 16 :00 Magnesium Hydroxide (Milk Of Mag) 30 ml DAILY PRN PO CONSTIPATION Last administered on 01/31/17 07:38; Admin Dose 30 ML; Start 01/22/17 at 16:00 Bisacodyl (Dulcolax) 5 mg DAILY PRN PO CONSTIPATION Last administered on 05:07; Admin Dose 5 MG; Start 01/22/17 at 16:00 Polyethylene Glycol (Miralax) 17 gm DAILY PO Last administered on 02/24/17 09 :06; Admin Dose 17 GM; Start 01/26/17 at 15:30 Sodium Biphosphate/ Sodium Phosphate (Fleet Enema) 133 ml DAILY PRN [place] CONSTIPATION Last administered on 01/27/17 06:17; Admin Dose 133 ML; Start at 20:30 Morphine Sulfate 2 mg 2 mg Q2H PRN IV PAIN LEVEL 7-10 Last administered on 08:32; Admin Dose 2 MG; Start 01/28/17 at 14:00 Ondansetron HCl/ Dextrose (Zofran Inj/D5W) 54 ml @ 108 mls/hr Q6H PRN IV NAUSEA AND/OR VOMITING; Start 01/31/17 at 12:00 Hydromorphone HCl (Dilaudid) 1 mg Q2H PRN IV PAIN LEVEL 6-10 Last administered on 02/24/17 11:32; Admin Dose 1 MG; Start 02/02/17 at 11:30 Acetaminophen (Tylenol Liquid) 650 mg Q4H PRN GTB PAIN AND OR ELEVATED TEMP Last administered on 02/06/17 16:19; Admin Dose 650 MG; Start 02/04/17 at 08:30 ; Status Future Hold Docusate Sodium 100 mg 100 mg BID NGT Last administered on 02/24/17 09:06; Admin Dose 100 MG; Start 02/05/17 at 09:00 Fat Emulsion Intravenous 250 ml @ 10 mls/hr Q24H IV Last administered on 02/23 20:46; Admin Dose 10 MLS/HR; Start 02/05/17 at 20:00 Total Parenteral Nutrition (Tpn) 1,000 ml @ 40 mls/hr Q24H IV Last administered on 02/23/17 17:44; Admin Dose 40 MLS/HR; Start 02/05/17 at 20:00 Diagnostic Test (Pha) (Accu-Chek) 1 ea Q8 XX Last administered on 02/24/17 05 :33; Admin Dose 1 EA; Start 02/07/17 at 22:00 Ondansetron HCl (Zofran Inj) 4 mg Q6H PRN IV NAUSEA AND/OR VOMITING Last administered on 02/24/17 04:29; Admin Dose 4 MG; Start 02/13/17 at 14:30 Furosemide (Lasix) 40 mg DAILY@06 PO Last administered on 02/24/17 04:17; Admin Dose 40 MG; Start 02/19/17 at 11:30 Enoxaparin Sodium 65 mg 65 mg Q12H SC Last administered on 02/24/17 04:18; Admin Dose 65 MG; Start 02/21/17 at 16:00 Vancomycin HCl/ Dextrose/Water (Vancocin/D5W) 150 ml @ 75 mls/hr Q12H IVPB Last administered on 02/24/17 04:17; Admin Dose 75 MLS/HR; Start 02/23/17 at 16:00 Lactobacillus Acidophilus/ Rhamnosus (Culturelle) 1 cap BID PO ; Start at 21:00 Famotidine (Pepcid Iv) 20 mg DAILY IV Last administered on 02/24/17t 09:06; Admin Dose 20 MG; Start 02/24/17 at 09:00 FRANKIE MENDOZA MD Feb 24, 2017 14:54
[2017-02-24] MEDS: MEGESTROL (40 MG/ML) 10ML CUP PO SCH ×2 (15:43→19:41)
--- NOTE | 2017-02-24 16:37 | CONS ---
Date/Time of Note Date/Time of Note DATE: 02/24/17 TIME: 16:36 Assessment/Plan Assessment/Plan Chief Complaint/Hosp Course ADVANCED OVARIAN CANCER WITH MALIGNANT ASCITES AND PERITONEAL carcinomatosis- Stage IIIc - IV ovarian cancer Large conglomerate pelvic mass inseparable from the uterus, sigmoid colon and rectum containing clumps of calcification suspicious for calcified fibroids and containing cystic areas. Large amount of free intraperitoneal fluid measuring 25 HU with caking of the omentum compatible with carcinomatosis. Centralization of bowel without evidence of bowel obstruction. Moderately severe right hydronephrosis and hydroureter to the level of the pelvic mass. There is moderate left pelvocaliectasis without ureteral dilatation. The bladder is quite distended with urine. POST cystoscopy and insertion of bilateral JJ stents. PER DR ABRAMS-If she gets better and respond to treatment then later on in the future she will need the stents removed and may be replaced CT CHEST - EDOUARD, EXCEPT SMALL L PLEURAL EFFUSION CA 125- 337 POST debulking surgery PATH- [id number] High grade serous carcinoma. D/W SON- HE IS REFUSING CHEMO POST IVC filter UNABLE TO PROCEED WITH CHEMO 2 TO SEPSIS/BACTEREMIA AND CONFUSION/ AMS ANEMIA, MICROCYTOSIS COMPLEX ANEMIA W-UP= + COMPONENT ACD DROP H/H POSTOP SERIAL H/H PRBC NEEDED PER STANDING ORDERS D/W RN LEUKOCYTOSIS REACTIVE, PARTIALLY 2 TO Splenectomy, partially 2 to infection CONFUSION NEURO F-UP MRI BRAIN- NO METS Recurrent Sepsis w/FEVER > 102 on 02/19 + leukocytosis => LINE sepsis, line removed * s/p Septic shock with fevers > 102.+ on admission, leukocytosis Bacteremia with blood culture growing gram-positive cocci=> Line DC;d * 02/19 -> BCx (+)Staph aureus, repeat BC x 02/20 (+)GPC -> TLC removed PELVIC ABSCESS- POST DRAINAGE malignant ascites sp para 10.19. hydro AUR from ascites, sp ureteral stenting. ILEUS NG TPN Problems: Consultation Date/Type/Reason Admit Date/Time Jan 22, 2017 at 14:12 Initial Consult Date 01/27/17 Type of Consultation: [facility] Referring Provider: DAYANARA BROWN MD 24 HR Interval Summary Free Text/Dictation ALL NOTED D/W PRIMARY Exam/Review of Systems Vital Signs Vitals Vital Signs Date Time Temp Pulse Resp B/P Pulse Ox O2 Delivery O2 Flow Rate FiO2 02/24/17 14:00 98.0 88 20 131/71 98 02/21/17 14:00 Room Air Intake and Output 02/23/17 02/23/17 02/24/17 15:00 23:00 07:00 Intake Total 1240 ml 750 ml Output Total 2118 ml 1200 ml Balance -878 ml -450 ml Exam GENERAL: Chronically ill-appearing lady, CONFUSED, NOT IN PAIN VITAL SIGNS: per chart NECK: Supple. No JVD or lymphadenopathy. CARDIAC EXAM: S1, S2. No added sounds or murmurs. CHEST: Bilateral rales. ABDOMEN: Soft, nontender. No guarding or rebound. EXTREMITIES: No cyanosis, clubbing or edema. NEUROLOGIC: Generalized weakness. Results Result Diagram: 02/24/1751102/24/17511 Results 24 hrs Laboratory Tests Test 02/23/17 23:22 02/24/17 05:12 02/24/17 05:14 02/24/17 15:30 Bedside Glucose 96 95 87 White Blood Count 12.0 H Red Blood Count 3.29 L Hemoglobin 8.8 L Hematocrit 28.3 L Mean Corpuscular Volume 86.0 Mean Corpuscular Hemoglobin 26.7 L Mean Corpuscular Hemoglobin Concent 31.1 L Red Cell Distribution Width 18.3 H Platelet Count 402 Mean Platelet Volume 12.6 H Neutrophils % 79.4 H Lymphocytes % 6.7 L Monocytes % 11.4 H Eosinophils % 1.1 Basophils % 0.2 Nucleated Red Blood Cells % 0.2 H Neutrophils # 9.5 H Lymphocytes # 0.8 Monocytes # 1.4 H Eosinophils # 0.1 Basophils # 0.0 Nucleated Red Blood Cells # 0.0 Sodium Level 139 Potassium Level 4.0 Chloride Level 105 Carbon Dioxide Level 27 Anion Gap 11 Blood Urea Nitrogen 9 Creatinine 0.49 Glucose Level 94 Calcium Level 8.7 Phosphorus Level 3.6 Magnesium Level 1.8 Total Bilirubin 0.1 L Direct Bilirubin 0.00 Indirect Bilirubin 0.1 Aspartate Amino Transf (AST/SGOT) 26 Alanine Aminotransferase (ALT/SGPT) 56 Alkaline Phosphatase 204 H Total Protein 6.2 Albumin 2.5 L Globulin 3.70 H Albumin/Globulin Ratio 0.67 Medications Medications Current Medications Acetaminophen (Tylenol Tab) 650 mg Q6H PRN PO PAIN LEVEL 1-3 OR FEVER Last administered on 02/06/17 23:54; Admin Dose 650 MG; Start 01/22/17 at 16:00; Status Future Hold Docusate Sodium (Colace) 100 mg Q12H PRN PO CONSTIPATION; Start 01/22/17 at 16 :00 Magnesium Hydroxide (Milk Of Mag) 30 ml DAILY PRN PO CONSTIPATION Last administered on 01/31/17 07:38; Admin Dose 30 ML; Start 01/22/17 at 16:00 Bisacodyl (Dulcolax) 5 mg DAILY PRN PO CONSTIPATION Last administered on 05:07; Admin Dose 5 MG; Start 01/22/17 at 16:00 Polyethylene Glycol (Miralax) 17 gm DAILY PO Last administered on 02/24/17 09 :06; Admin Dose 17 GM; Start 01/26/17 at 15:30 Sodium Biphosphate/ Sodium Phosphate (Fleet Enema) 133 ml DAILY PRN [place] CONSTIPATION Last administered on 01/27/17 06:17; Admin Dose 133 ML; Start at 20:30 Morphine Sulfate 2 mg 2 mg Q2H PRN IV PAIN LEVEL 7-10 Last administered on 08:32; Admin Dose 2 MG; Start 01/28/17 at 14:00 Ondansetron HCl/ Dextrose (Zofran Inj/D5W) 54 ml @ 108 mls/hr Q6H PRN IV NAUSEA AND/OR VOMITING; Start 01/31/17 at 12:00 Hydromorphone HCl (Dilaudid) 1 mg Q2H PRN IV PAIN LEVEL 6-10 Last administered on 02/24/17 11:32; Admin Dose 1 MG; Start 02/02/17 at 11:30 Acetaminophen (Tylenol Liquid) 650 mg Q4H PRN GTB PAIN AND OR ELEVATED TEMP Last administered on 02/06/17 16:19; Admin Dose 650 MG; Start 02/04/17 at 08:30 ; Status Future Hold Docusate Sodium 100 mg 100 mg BID NGT Last administered on 02/24/17 09:06; Admin Dose 100 MG; Start 02/05/17 at 09:00 Fat Emulsion Intravenous 250 ml @ 10 mls/hr Q24H IV Last administered on 02/23 20:46; Admin Dose 10 MLS/HR; Start 02/05/17 at 20:00 Total Parenteral Nutrition (Tpn) 1,000 ml @ 40 mls/hr Q24H IV Last administered on 02/23/17 17:44; Admin Dose 40 MLS/HR; Start 02/05/17 at 20:00 Diagnostic Test (Pha) (Accu-Chek) 1 ea Q8 XX Last administered on 02/24/17 14 :00; Admin Dose 1 EA; Start 02/07/17 at 22:00 Ondansetron HCl (Zofran Inj) 4 mg Q6H PRN IV NAUSEA AND/OR VOMITING Last administered on 02/24/17 04:29; Admin Dose 4 MG; Start 02/13/17 at 14:30 Furosemide (Lasix) 40 mg DAILY@06 PO Last administered on 02/24/17 04:17; Admin Dose 40 MG; Start 02/19/17 at 11:30 Enoxaparin Sodium 65 mg 65 mg Q12H SC Last administered on 02/24/17 15:44; Admin Dose 65 MG; Start 02/21/17 at 16:00 Vancomycin HCl/ Dextrose/Water (Vancocin/D5W) 150 ml @ 75 mls/hr Q12H IVPB Last administered on 02/24/17 15:43; Admin Dose 75 MLS/HR; Start 02/23/17 at 16:00 Lactobacillus Acidophilus/ Rhamnosus (Culturelle) 1 cap BID PO ; Start at 21:00 Famotidine (Pepcid Iv) 20 mg DAILY IV Last administered on 02/24/17 09:06; Admin Dose 20 MG; Start 02/24/17 at 09:00 Megestrol Acetate (Megace Susp) 400 mg BID PO Last administered on 02/24/17 15:43; Admin Dose 400 MG; Start 02/24/17 at 16:00 RAMIREZ YBARRA MD Feb 24, 2017 16:37
[2017-02-24] MEDS: TPN 1,000 ML IV SCH (18:10)
[2017-02-24] MEDS ORDERED: LACTOBACILLUS RHAMNOSUS CAP ONE (19:38)
[2017-02-24] MEDS: LACTOBACILLUS RHAMNOSUS CAP PO SCH (19:41)
--- NOTE | 2017-02-24 19:57 | CONS ---
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 Reason for Consultation Feels better and more consistent with baseline and limitations.+ flatus Referring Provider: DAYANARA BROWN MD Exam/Review of Systems Vital Signs Vitals Vital Signs Date Time Temp Pulse Resp B/P Pulse Ox O2 Delivery O2 Flow Rate FiO2 02/24/17 14:00 98.0 88 20 131/71 98 02/21/17 14:00 Room Air Intake and Output 02/23/17 02/23/17 02/24/17 15:00 23:00 07:00 Intake Total 1240 ml 750 ml Output Total 2118 ml 1200 ml Balance -878 ml -450 ml Exam Resp- clear CVS- NSR Abd- softer Ext- nt Results Result Diagram: 02/24/17 0512 02/24/17 0512 Results 24 hrs Laboratory Tests Test 02/23/17 23:22 02/24/17 05:12 02/24/17 05:14 02/24/17 15:30 Bedside Glucose 96 95 87 White Blood Count 12.0 H Red Blood Count 3.29 L Hemoglobin 8.8 L Hematocrit 28.3 L Mean Corpuscular Volume 86.0 Mean Corpuscular Hemoglobin 26.7 L Mean Corpuscular Hemoglobin Concent 31.1 L Red Cell Distribution Width 18.3 H Platelet Count 402 Mean Platelet Volume 12.6 H Neutrophils % 79.4 H Lymphocytes % 6.7 L Monocytes % 11.4 H Eosinophils % 1.1 Basophils % 0.2 Nucleated Red Blood Cells % 0.2 H Neutrophils # 9.5 H Lymphocytes # 0.8 Monocytes # 1.4 H Eosinophils # 0.1 Basophils # 0.0 Nucleated Red Blood Cells # 0.0 Sodium Level 139 Potassium Level 4.0 Chloride Level 105 Carbon Dioxide Level 27 Anion Gap 11 Blood Urea Nitrogen 9 Creatinine 0.49 Glucose Level 94 Calcium Level 8.7 Phosphorus Level 3.6 Magnesium Level 1.8 Total Bilirubin 0.1 L Direct Bilirubin 0.00 Indirect Bilirubin 0.1 Aspartate Amino Transf (AST/SGOT) 26 Alanine Aminotransferase (ALT/SGPT) 56 Alkaline Phosphatase 204 H Total Protein 6.2 Albumin 2.5 L Globulin 3.70 H Albumin/Globulin Ratio 0.67 Medications Medications Current Medications Acetaminophen (Tylenol Tab) 650 mg Q6H PRN PO PAIN LEVEL 1-3 OR FEVER Last administered on 02/06/17 23:54; Admin Dose 650 MG; Start 01/22/17 at 16:00; Status Future Hold Docusate Sodium (Colace) 100 mg Q12H PRN PO CONSTIPATION; Start 01/22/17 at 16 :00 Magnesium Hydroxide (Milk Of Mag) 30 ml DAILY PRN PO CONSTIPATION Last administered on 01/31/17 07:38; Admin Dose 30 ML; Start 01/22/17 at 16:00 Bisacodyl (Dulcolax) 5 mg DAILY PRN PO CONSTIPATION Last administered on 05:07; Admin Dose 5 MG; Start 01/22/17 at 16:00 Polyethylene Glycol (Miralax) 17 gm DAILY PO Last administered on 02/24/17 09 :06; Admin Dose 17 GM; Start 01/26/17 at 15:30 Sodium Biphosphate/ Sodium Phosphate (Fleet Enema) 133 ml DAILY PRN [place] CONSTIPATION Last administered on 01/27/17 06:17; Admin Dose 133 ML; Start at 20:30 Morphine Sulfate 2 mg 2 mg Q2H PRN IV PAIN LEVEL 7-10 Last administered on 08:32; Admin Dose 2 MG; Start 01/28/17 at 14:00 Ondansetron HCl/ Dextrose (Zofran Inj/D5W) 54 ml @ 108 mls/hr Q6H PRN IV NAUSEA AND/OR VOMITING; Start 01/31/17 at 12:00 Hydromorphone HCl (Dilaudid) 1 mg Q2H PRN IV PAIN LEVEL 6-10 Last administered on 02/24/17 11:32; Admin Dose 1 MG; Start 02/02/17 at 11:30 Acetaminophen (Tylenol Liquid) 650 mg Q4H PRN GTB PAIN AND OR ELEVATED TEMP Last administered on 02/06/17 16:19; Admin Dose 650 MG; Start 02/04/17 at 08:30 ; Status Future Hold Docusate Sodium 100 mg 100 mg BID NGT Last administered on 02/24/17 09:06; Admin Dose 100 MG; Start 02/05/17 at 09:00 Fat Emulsion Intravenous 250 ml @ 10 mls/hr Q24H IV Last administered on 02/23 20:46; Admin Dose 10 MLS/HR; Start 02/05/17 at 20:00 Total Parenteral Nutrition (Tpn) 1,000 ml @ 40 mls/hr Q24H IV Last administered on 02/24/17 18:10; Admin Dose 40 MLS/HR; Start 02/05/17 at 20:00 Diagnostic Test (Pha) (Accu-Chek) 1 ea Q8 XX Last administered on 02/24/17 14 :00; Admin Dose 1 EA; Start 02/07/17 at 22:00 Ondansetron HCl (Zofran Inj) 4 mg Q6H PRN IV NAUSEA AND/OR VOMITING Last administered on 02/24/17 04:29; Admin Dose 4 MG; Start 02/13/17 at 14:30 Furosemide (Lasix) 40 mg DAILY@06 PO Last administered on 02/24/17 04:17; Admin Dose 40 MG; Start 02/19/17 at 11:30 Enoxaparin Sodium 65 mg 65 mg Q12H SC Last administered on 02/24/17 15:44; Admin Dose 65 MG; Start 02/21/17 at 16:00 Vancomycin HCl/ Dextrose/Water (Vancocin/D5W) 150 ml @ 75 mls/hr Q12H IVPB Last administered on 02/24/17 15:43; Admin Dose 75 MLS/HR; Start 02/23/17 at 16:00 Lactobacillus Acidophilus/ Rhamnosus (Culturelle) 1 cap BID PO ; Start at 21:00 Famotidine (Pepcid Iv) 20 mg DAILY IV Last administered on 02/24/17 09:06; Admin Dose 20 MG; Start 02/24/17 at 09:00 Megestrol Acetate (Megace Susp) 400 mg BID PO Last administered on 02/24/17 15:43; Admin Dose 400 MG; Start 02/24/17 at 16:00 RAUL EUCEDA MD Feb 24, 2017 19:57
[2017-02-24 20:00] VITALS: BP 129/77; RESP 18
[2017-02-24] MEDS: FAT EMULSION 20% 250 ML IV SCH (20:10)
[2017-02-25 02:00] VITALS: BP 129/76; RESP 19
[2017-02-25] MEDS: VANCOMYCIN 750 MG in DEXTROSE 5% 150 ML IVPB SCH ×2 (04:17→16:29)
[2017-02-25] MEDS: ENOXAPARIN 80 MG/0.8 ML SYG SC SCH ×2 (04:18→16:30)
[2017-02-25] MEDS: morphine 2 MG INJ IV PRN ×3 (05:43→20:07)
[2017-02-25] MEDS: ACCU-CHEK XX SCH ×3 (05:43→22:00)
[2017-02-25 06:46] LABS: ABNORMAL IP MESSAGE 1; BASOPHIL # 0.1 10^3/ul (0.0-0.1); BASOPHILS % 0.6 % (0.0-2.0); EOSINOPHILS # 0.2 10^3/ul (0.0-0.5); EOSINOPHILS % 1.6 % (0.0-7.0); HEMATOCRIT 31.8 % (37.0-47.0); HEMOGLOBIN 9.6 g/dl (12.0-16.0); LYMPHOCYTES # 0.9 10^3/ul (0.8-2.9); LYMPHOCYTES % 6.7 % (15.0-51.0); MEAN CORPUSCULAR HEMOGLOBIN 27.4 pg (29.0-33.0); MEAN CORPUSCULAR HGB CONC 30.2 g/dl (32.0-37.0); MEAN CORPUSCULAR VOLUME 90.9 fl (82.0-101.0); MEAN PLATELET VOLUME 12.9 fl (7.4-10.4); MONOCYTE # 1.3 10^3/ul (0.3-0.9); MONOCYTES % 9.5 % (0.0-11.0); NEUTROPHILS % 79.9 % (39.0-77.0); NUCLEATED RED BLOOD CELLS% 0.1 /100WBC (0.0-0.0); PLATELET COUNT 291 10^3/UL (140-415); RED CELL DISTRIBUTION WIDTH 18.7 % (11.5-14.5); WHITE BLOOD COUNT 13.8 10^3/ul (4.8-10.8)
[2017-02-25 06:55] LABS: POSITIVE DIFF @See below
[2017-02-25 07:12] LABS: CALCIUM 8.9 mg/dl (8.4-10.2); CREATININE 0.46 mg/dl (0.44-1.00); MAGNESIUM 1.9 mg/dl (1.7-2.5); PHOSPHORUS 3.6 mg/dl (2.5-4.9); POTASSIUM 4.4 mmol/L (3.5-5.1)
[2017-02-25 08:15] VITALS: BP 110/74; RESP 19
[2017-02-25] MEDS: FUROSEMIDE 40 MG TAB PO SCH (08:24)
[2017-02-25] MEDS: DOCUSATE SODIUM 10 MG/ML (10ML CUP) NGT SCH ×2 (08:24→19:58)
[2017-02-25] MEDS: MEGESTROL (40 MG/ML) 10ML CUP PO SCH ×2 (08:24→19:59)
[2017-02-25] MEDS: FAMOTIDINE 20 MG INJ IV SCH (08:24)
[2017-02-25] MEDS: POLYETHYLENE GLYCOL 17 GM PACKET PO SCH (08:25)
[2017-02-25] MEDS: LACTOBACILLUS RHAMNOSUS CAP PO SCH ×2 (08:30→19:58)
--- NOTE | 2017-02-25 14:44 | CONS ---
Date/Time of Note Date/Time of Note DATE: 02/25/17 TIME: 14:43 Assessment/Plan Assessment/Plan Chief Complaint/Hosp Course SUBJECTIVE: No acute events overnight. The patient is alert, confused, looks comfortable, no fevers. MICROBIOLOGY: Blood culture on 02/19/2017 and 02/20/2017 grew coagulase- negative staph species. Repeat blood cultures negative. INDWELLINGS: The patient has intra-abdominal drainage catheter, Cullen and peripheral IV. ANTIMICROBIALS: Vancomycin. PHYSICAL EXAMINATION: GENERAL: This is a cachectic, wasted, well-developed, middle-aged woman who is in no distress. HEENT: Head atraumatic, normocephalic. Sclerae anicteric. Buccal mucosa dry. NECK: Supple. CHEST: Rise symmetrical. Breath sounds diminished to bases. HEART: S1, S2. ABDOMEN: Soft, bowel tones present. EXTREMITIES: No cyanosis. ASSESSMENT: 1. Systemic inflammatory response syndrome with ongoing leukocytosis. 2. Coagulase-negative staph bacteremia, status post triple lumen catheter discontinued, repeat blood cultures negative. 3. Metastatic ovarian cancer status post ureteral dissection, appendectomy with splenectomy and cytoreduction on 02/02/2017. 4. Status post alpha hemolytic strep urinary tract infection. 5. Bilateral hydronephrosis, status post JJ stent insertion on 01/30/2017. 6. Anemia. 7. Status post respiratory failure. 8. Status post CT-guided drainage of intra-abdominal abscess on 02/10/2017. PLAN: The patient remains stable. Continue present care. Continue vancomycin to complete treatment for line sepsis. Follow recommendations of specialists. DW staff/pt Problems: Consultation Date/Type/Reason Admit Date/Time Jan 22, 2017 at 14:12 Initial Consult Date 02/03/17 Type of Consultation: ID Referring Provider: DAYANARA BROWN MD Exam/Review of Systems Vital Signs Vitals Vital Signs Date Time Temp Pulse Resp B/P Pulse Ox O2 Delivery O2 Flow Rate FiO2 02/25/17 08:15 98.0 94 19 110/74 98 02/21/17 14:00 Room Air Intake and Output 02/24/17 02/24/17 02/25/17 14:59 22:59 06:59 Intake Total 950 ml 920 ml Output Total 42 ml 2800 ml 1039 ml Balance -42 ml -1850 ml -119 ml Results Result Diagram: 02/25/17 0554 02/25/17 0554 Results 24 hrs Laboratory Tests Test 02/24/17 15:30 02/24/17 22:53 02/25/17 05:42 02/25/17 05:54 Bedside Glucose 87 104 105 White Blood Count 13.8 H Red Blood Count 3.50 L Hemoglobin 9.6 L Hematocrit 31.8 L Mean Corpuscular Volume 90.9 Mean Corpuscular Hemoglobin 27.4 L Mean Corpuscular Hemoglobin Concent 30.2 L Red Cell Distribution Width 18.7 H Platelet Count 291 # Mean Platelet Volume 12.9 H Neutrophils % 79.9 H Lymphocytes % 6.7 L Monocytes % 9.5 Eosinophils % 1.6 Basophils % 0.6 Nucleated Red Blood Cells % 0.1 H Neutrophils # 11.0 H Lymphocytes # 0.9 Monocytes # 1.3 H Eosinophils # 0.2 Basophils # 0.1 Nucleated Red Blood Cells # 0.0 Sodium Level 138 Potassium Level 4.4 Chloride Level 105 Carbon Dioxide Level 25 Anion Gap 12 Blood Urea Nitrogen 10 Creatinine 0.46 Glucose Level 94 Calcium Level 8.9 Phosphorus Level 3.6 Magnesium Level 1.9 Test 02/25/17 14:22 Bedside Glucose 102 Medications Medications Current Medications Acetaminophen (Tylenol Tab) 650 mg Q6H PRN PO PAIN LEVEL 1-3 OR FEVER Last administered on 02/06/17 23:54; Admin Dose 650 MG; Start 01/22/17 at 16:00; Status Future Hold Docusate Sodium (Colace) 100 mg Q12H PRN PO CONSTIPATION; Start 01/22/17 at 16 :00 Magnesium Hydroxide (Milk Of Mag) 30 ml DAILY PRN PO CONSTIPATION Last administered on 01/31/17 07:38; Admin Dose 30 ML; Start 01/22/17 at 16:00 Bisacodyl (Dulcolax) 5 mg DAILY PRN PO CONSTIPATION Last administered on 05:07; Admin Dose 5 MG; Start 01/22/17 at 16:00 Polyethylene Glycol (Miralax) 17 gm DAILY PO Last administered on 02/25/17 08 :25; Admin Dose 17 GM; Start 01/26/17 at 15:30 Sodium Biphosphate/ Sodium Phosphate (Fleet Enema) 133 ml DAILY PRN [place] CONSTIPATION Last administered on 01/27/17 06:17; Admin Dose 133 ML; Start at 20:30 Morphine Sulfate 2 mg 2 mg Q2H PRN IV PAIN LEVEL 7-10 Last administered on 12:39; Admin Dose 2 MG; Start 01/28/17 at 14:00 Ondansetron HCl/ Dextrose (Zofran Inj/D5W) 54 ml @ 108 mls/hr Q6H PRN IV NAUSEA AND/OR VOMITING; Start 01/31/17 at 12:00 Hydromorphone HCl (Dilaudid) 1 mg Q2H PRN IV PAIN LEVEL 6-10 Last administered on 02/24/17 20:09; Admin Dose 1 MG; Start 02/02/17 at 11:30 Acetaminophen (Tylenol Liquid) 650 mg Q4H PRN GTB PAIN AND OR ELEVATED TEMP Last administered on 02/06/17 16:19; Admin Dose 650 MG; Start 02/04/17 at 08:30 ; Status Future Hold Docusate Sodium 100 mg 100 mg BID NGT Last administered on 02/25/17 08:24; Admin Dose 100 MG; Start 02/05/17 at 09:00 Fat Emulsion Intravenous 250 ml @ 10 mls/hr Q24H IV Last administered on 02/24 20:10; Admin Dose 10 MLS/HR; Start 02/05/17 at 20:00 Total Parenteral Nutrition (Tpn) 1,000 ml @ 40 mls/hr Q24H IV Last administered on 02/24/17 18:10; Admin Dose 40 MLS/HR; Start 02/05/17 at 20:00 Diagnostic Test (Pha) (Accu-Chek) 1 ea Q8 XX Last administered on 02/24/17 14 :00; Admin Dose 1 EA; Start 02/07/17 at 22:00 Ondansetron HCl (Zofran Inj) 4 mg Q6H PRN IV NAUSEA AND/OR VOMITING Last administered on 02/24/17 04:29; Admin Dose 4 MG; Start 02/13/17 at 14:30 Furosemide (Lasix) 40 mg DAILY@06 PO Last administered on 02/25/17 08:24; Admin Dose 40 MG; Start 02/19/17 at 11:30 Enoxaparin Sodium 65 mg 65 mg Q12H SC Last administered on 02/25/17 04:18; Admin Dose 65 MG; Start 02/21/17 at 16:00 Vancomycin HCl/ Dextrose/Water (Vancocin/D5W) 150 ml @ 75 mls/hr Q12H IVPB Last administered on 02/25/17 04:17; Admin Dose 75 MLS/HR; Start 02/23/17 at 16:00 Lactobacillus Acidophilus/ Rhamnosus (Culturelle) 1 cap BID PO Last administered on 02/25/17 08:30; Admin Dose 1 CAP; Start 02/24/17 at 21:00 Famotidine (Pepcid Iv) 20 mg DAILY IV Last administered on 02/25/17 08:24; Admin Dose 20 MG; Start 02/24/17 at 09:00 Megestrol Acetate (Megace Susp) 400 mg BID PO Last administered on 02/25/17 08:24; Admin Dose 400 MG; Start 02/24/17 at 16:00 Miscellaneous Information (*Rx Drug Level Order Reminder*) VANCO TR LEVEL PRIOR... ONCE ONCE XX ; Start 02/25/17 at 15:00; Stop 02/25/17 at 15:01 CARLOS SOLIZ NP Feb 25, 2017 14:44
--- NOTE | 2017-02-25 15:08 | CONS ---
Date/Time of Note Date/Time of Note DATE: 02/25/17 TIME: 15:07 Assessment/Plan Assessment/Plan Chief Complaint/Hosp Course ADVANCED OVARIAN CANCER WITH MALIGNANT ASCITES AND PERITONEAL carcinomatosis- Stage IIIc - IV ovarian cancer Large conglomerate pelvic mass inseparable from the uterus, sigmoid colon and rectum containing clumps of calcification suspicious for calcified fibroids and containing cystic areas. Large amount of free intraperitoneal fluid measuring 25 HU with caking of the omentum compatible with carcinomatosis. Centralization of bowel without evidence of bowel obstruction. Moderately severe right hydronephrosis and hydroureter to the level of the pelvic mass. There is moderate left pelvocaliectasis without ureteral dilatation. The bladder is quite distended with urine. POST cystoscopy and insertion of bilateral JJ stents. PER DR ABRAMS-If she gets better and respond to treatment then later on in the future she will need the stents removed and may be replaced CT CHEST - EDOUARD, EXCEPT SMALL L PLEURAL EFFUSION CA 125- 337 POST debulking surgery PATH- [id number] High grade serous carcinoma. D/W SON- HE IS REFUSING CHEMO POST IVC filter UNABLE TO PROCEED WITH CHEMO 2 TO SEPSIS/BACTEREMIA AND CONFUSION/ AMS HOPEFULLY SOON ANEMIA, MICROCYTOSIS COMPLEX ANEMIA W-UP= + COMPONENT ACD DROP H/H POSTOP SERIAL H/H PRBC NEEDED PER STANDING ORDERS D/W RN LEUKOCYTOSIS REACTIVE, PARTIALLY 2 TO Splenectomy, partially 2 to infection CONFUSION NEURO F-UP MRI BRAIN- NO METS Recurrent Sepsis w/FEVER > 102 on 02/19 + leukocytosis => LINE sepsis, line removed * s/p Septic shock with fevers > 102.+ on admission, leukocytosis Bacteremia with blood culture growing gram-positive cocci=> Line DC;d * 02/19 -> BCx (+)Staph aureus, repeat BC x 02/20 (+)GPC -> TLC removed PELVIC ABSCESS- POST DRAINAGE malignant ascites sp para 10.19. hydro AUR from ascites, sp ureteral stenting. ILEUS NG TPN Problems: Consultation Date/Type/Reason Admit Date/Time Jan 22, 2017 at 14:12 Initial Consult Date 01/27/17 Type of Consultation: [facility] Referring Provider: DAYANARA BROWN MD 24 HR Interval Summary Free Text/Dictation ALL NOTED Exam/Review of Systems Vital Signs Vitals Vital Signs Date Time Temp Pulse Resp B/P Pulse Ox O2 Delivery O2 Flow Rate FiO2 02/25/17 08:15 98.0 94 19 110/74 98 02/21/17 14:00 Room Air Intake and Output 02/24/17 02/24/17 02/25/17 14:59 22:59 06:59 Intake Total 950 ml 920 ml Output Total 42 ml 2800 ml 1039 ml Balance -42 ml -1850 ml -119 ml Exam GENERAL: Chronically ill-appearing lady, CONFUSED, NOT IN PAIN VITAL SIGNS: per chart NECK: Supple. No JVD or lymphadenopathy. CARDIAC EXAM: S1, S2. No added sounds or murmurs. CHEST: Bilateral rales. ABDOMEN: Soft, nontender. No guarding or rebound. EXTREMITIES: No cyanosis, clubbing or edema. NEUROLOGIC: Generalized weakness. Results Result Diagram: 02/25/17 0554 02/25/17 0554 Results 24 hrs Laboratory Tests Test 02/24/17 15:30 02/24/17 22:53 02/25/17 05:42 02/25/17 05:54 Bedside Glucose 87 104 105 White Blood Count 13.8 H Red Blood Count 3.50 L Hemoglobin 9.6 L Hematocrit 31.8 L Mean Corpuscular Volume 90.9 Mean Corpuscular Hemoglobin 27.4 L Mean Corpuscular Hemoglobin Concent 30.2 L Red Cell Distribution Width 18.7 H Platelet Count 291 # Mean Platelet Volume 12.9 H Neutrophils % 79.9 H Lymphocytes % 6.7 L Monocytes % 9.5 Eosinophils % 1.6 Basophils % 0.6 Nucleated Red Blood Cells % 0.1 H Neutrophils # 11.0 H Lymphocytes # 0.9 Monocytes # 1.3 H Eosinophils # 0.2 Basophils # 0.1 Nucleated Red Blood Cells # 0.0 Sodium Level 138 Potassium Level 4.4 Chloride Level 105 Carbon Dioxide Level 25 Anion Gap 12 Blood Urea Nitrogen 10 Creatinine 0.46 Glucose Level 94 Calcium Level 8.9 Phosphorus Level 3.6 Magnesium Level 1.9 Test 02/25/17 14:22 Bedside Glucose 102 Medications Medications Current Medications Acetaminophen (Tylenol Tab) 650 mg Q6H PRN PO PAIN LEVEL 1-3 OR FEVER Last administered on 02/06/17t 23:54; Admin Dose 650 MG; Start 01/22/17 at 16:00; Status Future Hold Docusate Sodium (Colace) 100 mg Q12H PRN PO CONSTIPATION; Start 01/22/17 at 16 :00 Magnesium Hydroxide (Milk Of Mag) 30 ml DAILY PRN PO CONSTIPATION Last administered on 01/31/17 07:38; Admin Dose 30 ML; Start 01/22/17 at 16:00 Bisacodyl (Dulcolax) 5 mg DAILY PRN PO CONSTIPATION Last administered on 05:07; Admin Dose 5 MG; Start 01/22/17 at 16:00 Polyethylene Glycol (Miralax) 17 gm DAILY PO Last administered on 02/25/17 08 :25; Admin Dose 17 GM; Start 01/26/17 at 15:30 Sodium Biphosphate/ Sodium Phosphate (Fleet Enema) 133 ml DAILY PRN [place] CONSTIPATION Last administered on 01/27/17 06:17; Admin Dose 133 ML; Start at 20:30 Morphine Sulfate 2 mg 2 mg Q2H PRN IV PAIN LEVEL 7-10 Last administered on 12:39; Admin Dose 2 MG; Start 01/28/17 at 14:00 Ondansetron HCl/ Dextrose (Zofran Inj/D5W) 54 ml @ 108 mls/hr Q6H PRN IV NAUSEA AND/OR VOMITING; Start 01/31/17 at 12:00 Hydromorphone HCl (Dilaudid) 1 mg Q2H PRN IV PAIN LEVEL 6-10 Last administered on 02/24/17 20:09; Admin Dose 1 MG; Start 02/02/17 at 11:30 Acetaminophen (Tylenol Liquid) 650 mg Q4H PRN GTB PAIN AND OR ELEVATED TEMP Last administered on 02/06/17 16:19; Admin Dose 650 MG; Start 02/04/17 at 08:30 ; Status Future Hold Docusate Sodium 100 mg 100 mg BID NGT Last administered on 02/25/17 08:24; Admin Dose 100 MG; Start 02/05/17 at 09:00 Fat Emulsion Intravenous 250 ml @ 10 mls/hr Q24H IV Last administered on 02/24 20:10; Admin Dose 10 MLS/HR; Start 02/05/17 at 20:00 Total Parenteral Nutrition (Tpn) 1,000 ml @ 40 mls/hr Q24H IV Last administered on 02/24/17 18:10; Admin Dose 40 MLS/HR; Start 02/05/17 at 20:00 Diagnostic Test (Pha) (Accu-Chek) 1 ea Q8 XX Last administered on 02/24/17 14 :00; Admin Dose 1 EA; Start 02/07/17 at 22:00 Ondansetron HCl (Zofran Inj) 4 mg Q6H PRN IV NAUSEA AND/OR VOMITING Last administered on 02/24/17 04:29; Admin Dose 4 MG; Start 02/13/17 at 14:30 Furosemide (Lasix) 40 mg DAILY@06 PO Last administered on 02/25/17 08:24; Admin Dose 40 MG; Start 02/19/17 at 11:30 Enoxaparin Sodium 65 mg 65 mg Q12H SC Last administered on 02/25/17 04:18; Admin Dose 65 MG; Start 02/21/17 at 16:00 Vancomycin HCl/ Dextrose/Water (Vancocin/D5W) 150 ml @ 75 mls/hr Q12H IVPB Last administered on 02/25/17 04:17; Admin Dose 75 MLS/HR; Start 02/23/17 at 16:00 Lactobacillus Acidophilus/ Rhamnosus (Culturelle) 1 cap BID PO Last administered on 02/25/17 08:30; Admin Dose 1 CAP; Start 02/24/17 at 21:00 Famotidine (Pepcid Iv) 20 mg DAILY IV Last administered on 02/25/17 08:24; Admin Dose 20 MG; Start 02/24/17 at 09:00 Megestrol Acetate (Megace Susp) 400 mg BID PO Last administered on 02/25/17 08:24; Admin Dose 400 MG; Start 02/24/17 at 16:00 RAMIREZ YBARRA MD Feb 25, 2017 15:08
[2017-02-25] MEDS: TPN 1,000 ML IV SCH (18:15)
--- NOTE | 2017-02-25 19:03 | PN ---
Date/Time of Note Date/Time of Note DATE: 02/25/17 TIME: 19:00 Assessment/Plan VTE Prophylaxis VTE Prophylaxis Intervention: LMWH Lines/Catheters IV Catheter Type (from Nrs): Peripheral IV Urinary Cath still in place: Yes Reason Cath still needed: urinary retention Assessment/Plan Chief Complaint/Hosp Course Hospitalist team service coverage S: 02/23: Events noted 02/24: no events 02/25: delirium; non focal. follows commands. . son updated; refuses chemo. O: Vss PE No pallor. Positive bitemporal wasting Reg Dimin but clear Bs dimin; diffuse tender nd no R/R/G No edema Neuro: non focal A/P 1. Recurrent metastatic ovarian Ca. S/p ureteral dissection, omentectomy, splenectomy, cytoreduction 02/02. Stable treat pain. Refused chemo. Prognosis guarded. Needs Palliative Care. 2. PE. IVC filter status 3. Delirium. Cont reorientation and reassurance. nonfocal. dc ivfs/ sen if possible. meds/mri reviewed. 4. Sirs 5. Stage IV ovarian Ca. Palliative care? 6. Past tobacco 7. Anemia 8. Obstructive uropathy status post double-J stent 9. Malnutrition; dc TPN? on megace 10. Hypothyroidism 11. Splenectomy status 12. FTT; snf vs Hospice. Problems: Exam/Review of Systems Vital Signs Vitals Vital Signs Date Time Temp Pulse Resp B/P Pulse Ox O2 Delivery O2 Flow Rate FiO2 02/25/17 08:15 98.0 94 19 110/74 98 02/21/17 14:00 Room Air Intake and Output 02/24/17 02/24/17 02/25/17 15:00 23:00 07:00 Intake Total 950 ml 920 ml Output Total 42 ml 2800 ml 1039 ml Balance -42 ml -1850 ml -119 ml Results Result Diagram: 02/25/17 0554 02/25/17 0554 Results 24 hrs Laboratory Tests Test 02/24/17 22:53 02/25/17 05:42 02/25/17 05:54 02/25/17 14:22 Bedside Glucose 104 105 102 White Blood Count 13.8 H Red Blood Count 3.50 L Hemoglobin 9.6 L Hematocrit 31.8 L Mean Corpuscular Volume 90.9 Mean Corpuscular Hemoglobin 27.4 L Mean Corpuscular Hemoglobin Concent 30.2 L Red Cell Distribution Width 18.7 H Platelet Count 291 # Mean Platelet Volume 12.9 H Neutrophils % 79.9 H Lymphocytes % 6.7 L Monocytes % 9.5 Eosinophils % 1.6 Basophils % 0.6 Nucleated Red Blood Cells % 0.1 H Neutrophils # 11.0 H Lymphocytes # 0.9 Monocytes # 1.3 H Eosinophils # 0.2 Basophils # 0.1 Nucleated Red Blood Cells # 0.0 Sodium Level 138 Potassium Level 4.4 Chloride Level 105 Carbon Dioxide Level 25 Anion Gap 12 Blood Urea Nitrogen 10 Creatinine 0.46 Glucose Level 94 Calcium Level 8.9 Phosphorus Level 3.6 Magnesium Level 1.9 Test 02/25/17 14:53 Vancomycin Level Trough 12.2 Medications Medications Current Medications Acetaminophen (Tylenol Tab) 650 mg Q6H PRN PO PAIN LEVEL 1-3 OR FEVER Last administered on 02/06/17 23:54; Admin Dose 650 MG; Start 01/22/17 at 16:00; Status Future Hold Docusate Sodium (Colace) 100 mg Q12H PRN PO CONSTIPATION; Start 01/22/17 at 16 :00 Magnesium Hydroxide (Milk Of Mag) 30 ml DAILY PRN PO CONSTIPATION Last administered on 01/31/17 07:38; Admin Dose 30 ML; Start 01/22/17 at 16:00 Bisacodyl (Dulcolax) 5 mg DAILY PRN PO CONSTIPATION Last administered on 05:07; Admin Dose 5 MG; Start 01/22/17 at 16:00 Polyethylene Glycol (Miralax) 17 gm DAILY PO Last administered on 02/25/17 08 :25; Admin Dose 17 GM; Start 01/26/17 at 15:30 Sodium Biphosphate/ Sodium Phosphate (Fleet Enema) 133 ml DAILY PRN [place] CONSTIPATION Last administered on 01/27/17 06:17; Admin Dose 133 ML; Start at 20:30 Morphine Sulfate 2 mg 2 mg Q2H PRN IV PAIN LEVEL 7-10 Last administered on 12:39; Admin Dose 2 MG; Start 01/28/17 at 14:00 Ondansetron HCl/ Dextrose (Zofran Inj/D5W) 54 ml @ 108 mls/hr Q6H PRN IV NAUSEA AND/OR VOMITING; Start 01/31/17 at 12:00 Hydromorphone HCl (Dilaudid) 1 mg Q2H PRN IV PAIN LEVEL 6-10 Last administered on 02/24/17 20:09; Admin Dose 1 MG; Start 02/02/17 at 11:30 Acetaminophen (Tylenol Liquid) 650 mg Q4H PRN GTB PAIN AND OR ELEVATED TEMP Last administered on 02/06/17 16:19; Admin Dose 650 MG; Start 02/04/17 at 08:30 ; Status Future Hold Docusate Sodium 100 mg 100 mg BID NGT Last administered on 02/25/17 08:24; Admin Dose 100 MG; Start 02/05/17 at 09:00 Fat Emulsion Intravenous 250 ml @ 10 mls/hr Q24H IV Last administered on 02/24 20:10; Admin Dose 10 MLS/HR; Start 02/05/17 at 20:00 Total Parenteral Nutrition (Tpn) 1,000 ml @ 40 mls/hr Q24H IV Last administered on 02/25/17 18:15; Admin Dose 40 MLS/HR; Start 02/05/17 at 20:00 Diagnostic Test (Pha) (Accu-Chek) 1 ea Q8 XX Last administered on 02/24/17 14 :00; Admin Dose 1 EA; Start 02/07/17 at 22:00 Ondansetron HCl (Zofran Inj) 4 mg Q6H PRN IV NAUSEA AND/OR VOMITING Last administered on 02/24/17 04:29; Admin Dose 4 MG; Start 02/13/17 at 14:30 Furosemide (Lasix) 40 mg DAILY@06 PO Last administered on 02/25/17 08:24; Admin Dose 40 MG; Start 02/19/17 at 11:30 Enoxaparin Sodium 65 mg 65 mg Q12H SC Last administered on 02/25/17 16:30; Admin Dose 65 MG; Start 02/21/17 at 16:00 Vancomycin HCl/ Dextrose/Water (Vancocin/D5W) 150 ml @ 75 mls/hr Q12H IVPB Last administered on 02/25/17 16:29; Admin Dose 75 MLS/HR; Start 02/23/17 at 16:00 Lactobacillus Acidophilus/ Rhamnosus (Culturelle) 1 cap BID PO Last administered on 02/25/17 08:30; Admin Dose 1 CAP; Start 02/24/17 at 21:00 Famotidine (Pepcid Iv) 20 mg DAILY IV Last administered on 02/25/17 08:24; Admin Dose 20 MG; Start 02/24/17 at 09:00 Megestrol Acetate (Megace Susp) 400 mg BID PO Last administered on 02/25/17 08:24; Admin Dose 400 MG; Start 02/24/17 at 16:00 FRANKIE MENDOZA MD Feb 25, 2017 19:03
[2017-02-25 19:33] VITALS: BP 113/74; RESP 18
[2017-02-25] MEDS: FAT EMULSION 20% 250 ML IV SCH (19:58)
[2017-02-25] MEDS: HYDROmorphONE 0.5 MG/0.5 ML SYG IV PRN (22:30)
[2017-02-26 02:00] VITALS: BP 130/69; RESP 18
[2017-02-26] MEDS: ENOXAPARIN 80 MG/0.8 ML SYG SC SCH ×2 (04:00→16:47)
[2017-02-26] MEDS: VANCOMYCIN 750 MG in DEXTROSE 5% 150 ML IVPB SCH ×2 (04:03→16:44)
[2017-02-26] MEDS: ACCU-CHEK XX SCH ×3 (06:00→21:34)
[2017-02-26 06:52] LABS: ABNORMAL IP MESSAGE 1; BASOPHIL # 0.1 10^3/ul (0.0-0.1); BASOPHILS % 0.3 % (0.0-2.0); EOSINOPHILS # 0.2 10^3/ul (0.0-0.5); EOSINOPHILS % 1.1 % (0.0-7.0); HEMATOCRIT 30.6 % (37.0-47.0); HEMOGLOBIN 9.6 g/dl (12.0-16.0); LYMPHOCYTES # 1.1 10^3/ul (0.8-2.9); LYMPHOCYTES % 6.1 % (15.0-51.0); MEAN CORPUSCULAR HGB CONC 31.4 g/dl (32.0-37.0); MEAN CORPUSCULAR VOLUME 86.2 fl (82.0-101.0); MEAN PLATELET VOLUME 12.5 fl (7.4-10.4); MONOCYTE # 1.7 10^3/ul (0.3-0.9); MONOCYTES % 9.6 % (0.0-11.0); NEUTROPHIL # 13.9 10^3/ul (1.6-7.5); NEUTROPHILS % 80.5 % (39.0-77.0); PLATELET COUNT 430 10^3/UL (140-415); RED BLOOD COUNT 3.55 10^6/ul (4.20-5.40); RED CELL DISTRIBUTION WIDTH 18.4 % (11.5-14.5); WHITE BLOOD COUNT 17.3 10^3/ul (4.8-10.8)
[2017-02-26] MEDS: PANTOPRAZOLE (EC) 40 MG TAB PO SCH (06:53)
[2017-02-26] MEDS: FUROSEMIDE 40 MG TAB PO SCH (06:53)
[2017-02-26 06:58] LABS: POSITIVE DIFF @See below
[2017-02-26 07:14] LABS: CALCIUM 9.3 mg/dl (8.4-10.2); CREATININE 0.56 mg/dl (0.44-1.00); MAGNESIUM 1.9 mg/dl (1.7-2.5); PHOSPHORUS 4.1 mg/dl (2.5-4.9); POTASSIUM 4.4 mmol/L (3.5-5.1)
[2017-02-26 07:58] VITALS: BP 124/75; RESP 16
[2017-02-26] MEDS: POLYETHYLENE GLYCOL 17 GM PACKET PO SCH (09:00)
[2017-02-26] MEDS: MEGESTROL (40 MG/ML) 10ML CUP PO SCH ×2 (09:00→21:18)
[2017-02-26] MEDS: DOCUSATE SODIUM 10 MG/ML (10ML CUP) NGT SCH ×2 (09:00→21:19)
[2017-02-26] MEDS: LACTOBACILLUS RHAMNOSUS CAP PO SCH ×2 (09:50→21:18)
[2017-02-26] MEDS: morphine 2 MG INJ IV PRN ×2 (09:51→13:47)
--- NOTE | 2017-02-26 12:46 | CONS ---
Date/Time of Note Date/Time of Note DATE: 02/26/17 TIME: 12:45 Assessment/Plan Assessment/Plan Chief Complaint/Hosp Course SUBJECTIVE: No acute events overnight. The patient is alert, looks comfortable , no fevers. MICROBIOLOGY: Blood culture on 02/19/2017 and 02/20/2017 grew coagulase- negative staph species. Repeat blood cultures negative. INDWELLINGS: The patient has intra-abdominal drainage catheter, Cullen and peripheral IV. ANTIMICROBIALS: Vancomycin. PHYSICAL EXAMINATION: GENERAL: This is a cachectic, wasted, well-developed, middle-aged woman who is in no distress. HEENT: Head atraumatic, normocephalic. Sclerae anicteric. Buccal mucosa dry. NECK: Supple. CHEST: Rise symmetrical. Breath sounds diminished to bases. HEART: S1, S2. ABDOMEN: Soft, bowel tones present. EXTREMITIES: No cyanosis. ASSESSMENT: 1. Systemic inflammatory response syndrome with ongoing leukocytosis. 2. Coagulase-negative staph bacteremia, status post triple lumen catheter discontinued, repeat blood cultures negative. 3. Metastatic ovarian cancer status post ureteral dissection, appendectomy with splenectomy and cytoreduction on 02/02/2017. 4. Status post alpha hemolytic strep urinary tract infection. 5. Bilateral hydronephrosis, status post JJ stent insertion on 01/30/2017. 6. Anemia. 7. Status post respiratory failure. 8. Status post CT-guided drainage of intra-abdominal abscess on 02/10/2017. PLAN: The patient remains stable. Continue present care. Continue vancomycin to complete treatment for line sepsis. Check urine culture and chest x-ray given worsening leukocytosis DW staff/pt Problems: Consultation Date/Type/Reason Admit Date/Time Jan 22, 2017 at 14:12 Initial Consult Date 02/03/17 Type of Consultation: ID Referring Provider: DAYANARA BROWN MD Exam/Review of Systems Vital Signs Vitals Vital Signs Date Time Temp Pulse Resp B/P Pulse Ox O2 Delivery O2 Flow Rate FiO2 02/26/17 07:58 97.8 106 16 124/75 99 Intake and Output 02/25/17 02/25/17 02/26/17 15:00 23:00 07:00 Intake Total 1040 ml 800 ml Output Total 2230 ml 980 ml Balance -1190 ml -180 ml Results Result Diagram: 02/26/17 0549 02/26/17 0549 Results 24 hrs Laboratory Tests Test 02/25/17 14:22 02/25/17 14:53 02/25/17 22:51 02/26/17 05:49 Bedside Glucose 102 90 Vancomycin Level Trough 12.2 White Blood Count 17.3 #H Red Blood Count 3.55 L Hemoglobin 9.6 L Hematocrit 30.6 L Mean Corpuscular Volume 86.2 Mean Corpuscular Hemoglobin 27.0 L Mean Corpuscular Hemoglobin Concent 31.4 L Red Cell Distribution Width 18.4 H Platelet Count 430 #H Mean Platelet Volume 12.5 H Neutrophils % 80.5 H Lymphocytes % 6.1 L Monocytes % 9.6 Eosinophils % 1.1 Basophils % 0.3 Nucleated Red Blood Cells % 0.0 Neutrophils # 13.9 H Lymphocytes # 1.1 Monocytes # 1.7 H Eosinophils # 0.2 Basophils # 0.1 Nucleated Red Blood Cells # 0.0 Sodium Level 140 Potassium Level 4.4 Chloride Level 102 Carbon Dioxide Level 29 Anion Gap 13 Blood Urea Nitrogen 13 Creatinine 0.56 Glucose Level 101 Calcium Level 9.3 Phosphorus Level 4.1 Magnesium Level 1.9 Test 02/26/17 06:46 Bedside Glucose 101 Medications Medications Current Medications Acetaminophen (Tylenol Tab) 650 mg Q6H PRN PO PAIN LEVEL 1-3 OR FEVER Last administered on 02/06/17 23:54; Admin Dose 650 MG; Start 01/22/17 at 16:00; Status Future Hold Docusate Sodium (Colace) 100 mg Q12H PRN PO CONSTIPATION; Start 01/22/17 at 16 :00 Magnesium Hydroxide (Milk Of Mag) 30 ml DAILY PRN PO CONSTIPATION Last administered on 01/31/17 07:38; Admin Dose 30 ML; Start 01/22/17 at 16:00 Bisacodyl (Dulcolax) 5 mg DAILY PRN PO CONSTIPATION Last administered on 05:07; Admin Dose 5 MG; Start 01/22/17 at 16:00 Polyethylene Glycol (Miralax) 17 gm DAILY PO Last administered on 02/25/17 08 :25; Admin Dose 17 GM; Start 01/26/17 at 15:30 Sodium Biphosphate/ Sodium Phosphate (Fleet Enema) 133 ml DAILY PRN [place] CONSTIPATION Last administered on 01/27/17 06:17; Admin Dose 133 ML; Start at 20:30 Morphine Sulfate 2 mg 2 mg Q2H PRN IV PAIN LEVEL 7-10 Last administered on 09:51; Admin Dose 2 MG; Start 01/28/17 at 14:00 Ondansetron HCl/ Dextrose (Zofran Inj/D5W) 54 ml @ 108 mls/hr Q6H PRN IV NAUSEA AND/OR VOMITING; Start 01/31/17 at 12:00 Hydromorphone HCl (Dilaudid) 1 mg Q2H PRN IV PAIN LEVEL 6-10 Last administered on 02/25/17 22:30; Admin Dose 1 MG; Start 02/02/17 at 11:30 Acetaminophen (Tylenol Liquid) 650 mg Q4H PRN GTB PAIN AND OR ELEVATED TEMP Last administered on 02/06/17 16:19; Admin Dose 650 MG; Start 02/04/17 at 08:30 ; Status Future Hold Docusate Sodium 100 mg 100 mg BID NGT Last administered on 02/25/17 19:58; Admin Dose 100 MG; Start 02/05/17 at 09:00 Fat Emulsion Intravenous 250 ml @ 10 mls/hr Q24H IV Last administered on 02/25 19:58; Admin Dose 10 MLS/HR; Start 02/05/17 at 20:00 Total Parenteral Nutrition (Tpn) 1,000 ml @ 40 mls/hr Q24H IV Last administered on 02/25/17 18:15; Admin Dose 40 MLS/HR; Start 02/05/17 at 20:00 Diagnostic Test (Pha) (Accu-Chek) 1 ea Q8 XX Last administered on 02/24/17 14 :00; Admin Dose 1 EA; Start 02/07/17 at 22:00 Ondansetron HCl (Zofran Inj) 4 mg Q6H PRN IV NAUSEA AND/OR VOMITING Last administered on 02/24/17 04:29; Admin Dose 4 MG; Start 02/13/17 at 14:30 Furosemide (Lasix) 40 mg DAILY@06 PO Last administered on 02/26/17 06:53; Admin Dose 40 MG; Start 02/19/17 at 11:30 Enoxaparin Sodium 65 mg 65 mg Q12H SC Last administered on 02/26/17 04:00; Admin Dose 65 MG; Start 02/21/17 at 16:00 Vancomycin HCl/ Dextrose/Water (Vancocin/D5W) 150 ml @ 75 mls/hr Q12H IVPB Last administered on 02/26/17 04:03; Admin Dose 75 MLS/HR; Start 02/23/17 at 16:00 Lactobacillus Acidophilus/ Rhamnosus (Culturelle) 1 cap BID PO Last administered on 02/26/17 09:50; Admin Dose 1 CAP; Start 02/24/17 at 21:00 Megestrol Acetate (Megace Susp) 400 mg BID PO Last administered on 02/25/17 19:59; Admin Dose 400 MG; Start 02/24/17 at 16:00 Pantoprazole (Protonix Tab) 40 mg DAILY@06 PO Last administered on 02/26/17 06:53; Admin Dose 40 MG; Start 02/26/17 at 06:00 CARLOS SOLIZ NP Feb 26, 2017 12:46
--- NOTE | 2017-02-26 12:56 | PN ---
Date/Time of Note Date/Time of Note DATE: 02/26/17 TIME: 12:54 Assessment/Plan VTE Prophylaxis VTE Prophylaxis Intervention: LMWH Lines/Catheters IV Catheter Type (from Nrs): Peripheral IV Urinary Cath still in place: Yes Reason Cath still needed: urinary retention Assessment/Plan Chief Complaint/Hosp Course Hospitalist team service coverage S: 02/23: Events noted 02/24: no events 02/25: delirium; non focal. follows commands. . son updated; refuses chemo. 02/26: Still in delirium but less agitated at the moment. No nausea vomiting. Poor appetite. O: Vss PE No pallor. Positive bitemporal wasting Reg Dimin but clear Bs dimin; diffuse tender nd no R/R/G No edema IV c/d/i Neuro: non focal A/P 1. Recurrent metastatic ovarian Ca. S/p ureteral dissection, omentectomy, splenectomy, cytoreduction 02/02. Stable treat pain. Refused chemo. Prognosis guarded. Needs Palliative Care. 2. PE. IVC filter status 3. Delirium. Cont reorientation and reassurance. nonfocal. DC tethers [tpn/ ivfs/ sen] if possible. meds/mri reviewed. 4. Sirs 5. Stage IV ovarian Ca. Palliative care? 6. Past tobacco 7. Anemia 8. Obstructive uropathy status post double-J stent 9. Malnutrition; DC TPN? on megace 10. Hypothyroidism 11. Splenectomy status 12. FTT; snf vs Hospice. Problems: Exam/Review of Systems Vital Signs Vitals Vital Signs Date Time Temp Pulse Resp B/P Pulse Ox O2 Delivery O2 Flow Rate FiO2 02/26/17 07:58 97.8 106 16 124/75 99 Intake and Output 02/25/17 02/25/17 02/26/17 15:00 23:00 07:00 Intake Total 1040 ml 800 ml Output Total 2230 ml 980 ml Balance -1190 ml -180 ml Results Result Diagram: 02/26/17 0549 02/26/17 0549 Results 24 hrs Laboratory Tests Test 02/25/17 14:22 02/25/17 14:53 02/25/17 22:51 02/26/17 05:49 Bedside Glucose 102 90 Vancomycin Level Trough 12.2 White Blood Count 17.3 #H Red Blood Count 3.55 L Hemoglobin 9.6 L Hematocrit 30.6 L Mean Corpuscular Volume 86.2 Mean Corpuscular Hemoglobin 27.0 L Mean Corpuscular Hemoglobin Concent 31.4 L Red Cell Distribution Width 18.4 H Platelet Count 430 #H Mean Platelet Volume 12.5 H Neutrophils % 80.5 H Lymphocytes % 6.1 L Monocytes % 9.6 Eosinophils % 1.1 Basophils % 0.3 Nucleated Red Blood Cells % 0.0 Neutrophils # 13.9 H Lymphocytes # 1.1 Monocytes # 1.7 H Eosinophils # 0.2 Basophils # 0.1 Nucleated Red Blood Cells # 0.0 Sodium Level 140 Potassium Level 4.4 Chloride Level 102 Carbon Dioxide Level 29 Anion Gap 13 Blood Urea Nitrogen 13 Creatinine 0.56 Glucose Level 101 Calcium Level 9.3 Phosphorus Level 4.1 Magnesium Level 1.9 Test 02/26/17 06:46 Bedside Glucose 101 Medications Medications Current Medications Acetaminophen (Tylenol Tab) 650 mg Q6H PRN PO PAIN LEVEL 1-3 OR FEVER Last administered on 02/06/17 23:54; Admin Dose 650 MG; Start 01/22/17 at 16:00; Status Future Hold Docusate Sodium (Colace) 100 mg Q12H PRN PO CONSTIPATION; Start 01/22/17 at 16 :00 Magnesium Hydroxide (Milk Of Mag) 30 ml DAILY PRN PO CONSTIPATION Last administered on 01/31/17 07:38; Admin Dose 30 ML; Start 01/22/17 at 16:00 Bisacodyl (Dulcolax) 5 mg DAILY PRN PO CONSTIPATION Last administered on 05:07; Admin Dose 5 MG; Start 01/22/17 at 16:00 Polyethylene Glycol (Miralax) 17 gm DAILY PO Last administered on 02/25/17 08 :25; Admin Dose 17 GM; Start 01/26/17 at 15:30 Sodium Biphosphate/ Sodium Phosphate (Fleet Enema) 133 ml DAILY PRN [place] CONSTIPATION Last administered on 01/27/17 06:17; Admin Dose 133 ML; Start at 20:30 Morphine Sulfate 2 mg 2 mg Q2H PRN IV PAIN LEVEL 7-10 Last administered on 09:51; Admin Dose 2 MG; Start 01/28/17 at 14:00 Ondansetron HCl/ Dextrose (Zofran Inj/D5W) 54 ml @ 108 mls/hr Q6H PRN IV NAUSEA AND/OR VOMITING; Start 01/31/17 at 12:00 Hydromorphone HCl (Dilaudid) 1 mg Q2H PRN IV PAIN LEVEL 6-10 Last administered on 02/25/17 22:30; Admin Dose 1 MG; Start 02/02/17 at 11:30 Acetaminophen (Tylenol Liquid) 650 mg Q4H PRN GTB PAIN AND OR ELEVATED TEMP Last administered on 02/06/17 16:19; Admin Dose 650 MG; Start 02/04/17 at 08:30 ; Status Future Hold Docusate Sodium 100 mg 100 mg BID NGT Last administered on 02/25/17 19:58; Admin Dose 100 MG; Start 02/05/17 at 09:00 Fat Emulsion Intravenous 250 ml @ 10 mls/hr Q24H IV Last administered on 02/25 19:58; Admin Dose 10 MLS/HR; Start 02/05/17 at 20:00 Total Parenteral Nutrition (Tpn) 1,000 ml @ 40 mls/hr Q24H IV Last administered on 02/25/17 18:15; Admin Dose 40 MLS/HR; Start 02/05/17 at 20:00 Diagnostic Test (Pha) (Accu-Chek) 1 ea Q8 XX Last administered on 02/24/17 14 :00; Admin Dose 1 EA; Start 02/07/17 at 22:00 Ondansetron HCl (Zofran Inj) 4 mg Q6H PRN IV NAUSEA AND/OR VOMITING Last administered on 02/24/17 04:29; Admin Dose 4 MG; Start 02/13/17 at 14:30 Furosemide (Lasix) 40 mg DAILY@06 PO Last administered on 02/26/17 06:53; Admin Dose 40 MG; Start 02/19/17 at 11:30 Enoxaparin Sodium 65 mg 65 mg Q12H SC Last administered on 02/26/17 04:00; Admin Dose 65 MG; Start 02/21/17 at 16:00 Vancomycin HCl/ Dextrose/Water (Vancocin/D5W) 150 ml @ 75 mls/hr Q12H IVPB Last administered on 02/26/17 04:03; Admin Dose 75 MLS/HR; Start 02/23/17 at 16:00 Lactobacillus Acidophilus/ Rhamnosus (Culturelle) 1 cap BID PO Last administered on 02/26/17 09:50; Admin Dose 1 CAP; Start 02/24/17 at 21:00 Megestrol Acetate (Megace Susp) 400 mg BID PO Last administered on 02/25/17 19:59; Admin Dose 400 MG; Start 02/24/17 at 16:00 Pantoprazole (Protonix Tab) 40 mg DAILY@06 PO Last administered on 02/26/17 06:53; Admin Dose 40 MG; Start 02/26/17 at 06:00 FRANKIE MENDOZA MD Feb 26, 2017 12:56
[2017-02-26] MEDS: TPN 1,000 ML IV SCH (18:26)
[2017-02-26] MEDS: FAT EMULSION 20% 250 ML IV SCH (21:18)
[2017-02-26 21:22] VITALS: BP 95/56; RESP 18
[2017-02-26] MEDS: HYDROmorphONE 0.5 MG/0.5 ML SYG IV PRN (23:52)
[2017-02-27] MEDS: VANCOMYCIN 750 MG in DEXTROSE 5% 150 ML IVPB SCH ×2 (03:45→17:28)
[2017-02-27] MEDS: ENOXAPARIN 80 MG/0.8 ML SYG SC SCH ×2 (03:46→17:46)
[2017-02-27 04:27] VITALS: BP 123/73; RESP 17
[2017-02-27] MEDS: ACCU-CHEK XX SCH ×3 (05:37→22:00)
[2017-02-27] MEDS: PANTOPRAZOLE (EC) 40 MG TAB PO SCH (05:37)
[2017-02-27] MEDS: FUROSEMIDE 40 MG TAB PO SCH (05:44)
[2017-02-27 05:47] VITALS: BP 122/74; PULSE 109
--- NOTE | 2017-02-27 08:50 | RADRPT ---
PROCEDURE: XR Chest. CLINICAL INDICATION: Chest pain. TECHNIQUE: Single frontal view. COMPARISON: 02/19/2017. FINDINGS: The right internal jugular vein catheter has been removed. There is improved aeration of the left jevon ng base. Surgical drains are once again noted in the abdomen. The heart size is normal. There is no pleural effusion. There is no pneumothorax. IMPRESSION: 1. Right IJ catheter removed. 2. Improved aeration of the left lung base. 3. Surgical drains in the abdomen. 4. Otherwise unremarkable chest radiograph. RPTAT: QQ .Eliud Yoder MD, MD Date Time Electronically viewed and signed by .Eliud Yoder MD, MD on 02/27/2017 08:49 .R/
[2017-02-27] MEDS: LACTOBACILLUS RHAMNOSUS CAP PO SCH ×2 (08:58→20:58)
[2017-02-27] MEDS: MEGESTROL (40 MG/ML) 10ML CUP PO SCH ×2 (08:58→20:58)
[2017-02-27] MEDS: HYDROmorphONE 0.5 MG/0.5 ML SYG IV PRN ×2 (08:59→20:52)
[2017-02-27] MEDS: POLYETHYLENE GLYCOL 17 GM PACKET PO SCH (09:00)
[2017-02-27] MEDS: DOCUSATE SODIUM 10 MG/ML (10ML CUP) NGT SCH ×2 (09:00→20:58)
--- NOTE | 2017-02-27 10:45 | PN ---
Date/Time of Note Date/Time of Note DATE: 02/27/17 TIME: 10:43 Assessment/Plan VTE Prophylaxis VTE Prophylaxis Intervention: LMWH Lines/Catheters IV Catheter Type (from Nrs): Peripheral IV Urinary Cath still in place: Yes Reason Cath still needed: urinary retention Assessment/Plan Chief Complaint/Hosp Course Hospitalist team service coverage S: 02/23: Events noted 02/24: no events 02/25: delirium; non focal. follows commands. . son updated; refuses chemo. 02/26: Still in delirium but less agitated at the moment. No nausea vomiting. Poor appetite. 02/27: No dyspnea fever chills. Oriented to 2016. Not oriented to February. O: Vss PE No pallor. Positive bitemporal wasting Reg Dimin but clear Bs dimin; diffuse tender nd no R/R/G No edema IVpicc c/d/i. Neuro: non focal A/P 1. Recurrent metastatic ovarian Ca. S/p ureteral dissection, omentectomy, splenectomy, cytoreduction 02/02. Stable treat pain. Refused chemo. Prognosis guarded. Needs Palliative Care. 2. PE. IVC filter status 3. Delirium. Cont reorientation and reassurance. nonfocal. DC tethers [tpn/ ivfs/ sen] if possible. meds/mri reviewed. 4. Sirs 5. Stage IV ovarian Ca. Palliative care? 6. Past tobacco 7. Anemia 8. Obstructive uropathy status post double-J stent 9. Malnutrition; DC TPN? on megace 10. Hypothyroidism 11. Splenectomy status 12. FTT; snf vs Hospice. 10. Leukocytosis. Change Sen/ lines? DC TPN if possible. Problems: Exam/Review of Systems Vital Signs Vitals Vital Signs Date Time Temp Pulse Resp B/P Pulse Ox O2 Delivery O2 Flow Rate FiO2 02/27/17 05:47 109 122/74 02/27/17 04:27 98.2 17 96 Intake and Output 02/26/17 02/26/17 02/27/17 15:00 23:00 07:00 Intake Total 860 ml 730 ml Output Total 1365 ml 614 ml Balance -505 ml 116 ml Results Result Diagram: 02/26/17 0549 02/26/17 0549 Results 24 hrs Laboratory Tests Test 02/26/17 13:52 02/26/17 21:33 02/27/17 05:36 Bedside Glucose 104 98 111 Medications Medications Current Medications Acetaminophen (Tylenol Tab) 650 mg Q6H PRN PO PAIN LEVEL 1-3 OR FEVER Last administered on 02/06/17 23:54; Admin Dose 650 MG; Start 01/22/17 at 16:00; Status Future Hold Docusate Sodium (Colace) 100 mg Q12H PRN PO CONSTIPATION; Start 01/22/17 at 16 :00 Magnesium Hydroxide (Milk Of Mag) 30 ml DAILY PRN PO CONSTIPATION Last administered on 01/31/17 07:38; Admin Dose 30 ML; Start 01/22/17 at 16:00 Bisacodyl (Dulcolax) 5 mg DAILY PRN PO CONSTIPATION Last administered on 05:07; Admin Dose 5 MG; Start 01/22/17 at 16:00 Polyethylene Glycol (Miralax) 17 gm DAILY PO Last administered on 02/25/17 08 :25; Admin Dose 17 GM; Start 01/26/17 at 15:30 Sodium Biphosphate/ Sodium Phosphate (Fleet Enema) 133 ml DAILY PRN [place] CONSTIPATION Last administered on 01/27/17 06:17; Admin Dose 133 ML; Start at 20:30 Morphine Sulfate 2 mg 2 mg Q2H PRN IV PAIN LEVEL 7-10 Last administered on 13:47; Admin Dose 2 MG; Start 01/28/17 at 14:00 Ondansetron HCl/ Dextrose (Zofran Inj/D5W) 54 ml @ 108 mls/hr Q6H PRN IV NAUSEA AND/OR VOMITING; Start 01/31/17 at 12:00 Hydromorphone HCl (Dilaudid) 1 mg Q2H PRN IV PAIN LEVEL 6-10 Last administered on 02/27/17 08:59; Admin Dose 1 MG; Start 02/02/17 at 11:30 Acetaminophen (Tylenol Liquid) 650 mg Q4H PRN GTB PAIN AND OR ELEVATED TEMP Last administered on 02/06/17 16:19; Admin Dose 650 MG; Start 02/04/17 at 08:30 ; Status Future Hold Docusate Sodium 100 mg 100 mg BID NGT Last administered on 02/26/17 21:19; Admin Dose 100 MG; Start 02/05/17 at 09:00 Fat Emulsion Intravenous 250 ml @ 10 mls/hr Q24H IV Last administered on 02/26 21:18; Admin Dose 10 MLS/HR; Start 02/05/17 at 20:00 Total Parenteral Nutrition (Tpn) 1,000 ml @ 40 mls/hr Q24H IV Last administered on 02/26/17 18:26; Admin Dose 40 MLS/HR; Start 02/05/17 at 20:00 Diagnostic Test (Pha) (Accu-Chek) 1 ea Q8 XX Last administered on 02/27/17 05 :37; Admin Dose 1 EA; Start 02/07/17 at 22:00 Ondansetron HCl (Zofran Inj) 4 mg Q6H PRN IV NAUSEA AND/OR VOMITING Last administered on 02/24/17 04:29; Admin Dose 4 MG; Start 02/13/17 at 14:30 Furosemide (Lasix) 40 mg DAILY@06 PO Last administered on 02/27/17 05:44; Admin Dose 40 MG; Start 02/19/17 at 11:30 Enoxaparin Sodium 65 mg 65 mg Q12H SC Last administered on 02/27/17 03:46; Admin Dose 65 MG; Start 02/21/17 at 16:00 Vancomycin HCl/ Dextrose/Water (Vancocin/D5W) 150 ml @ 75 mls/hr Q12H IVPB Last administered on 02/27/17 03:45; Admin Dose 75 MLS/HR; Start 02/23/17 at 16:00 Lactobacillus Acidophilus/ Rhamnosus (Culturelle) 1 cap BID PO Last administered on 02/27/17 08:58; Admin Dose 1 CAP; Start 02/24/17 at 21:00 Megestrol Acetate (Megace Susp) 400 mg BID PO Last administered on 02/27/17 08:58; Admin Dose 400 MG; Start 02/24/17 at 16:00 Pantoprazole (Protonix Tab) 40 mg DAILY@06 PO Last administered on 02/27/17 05:37; Admin Dose 40 MG; Start 02/26/17 at 06:00 FRANKIE MENDOZA MD Feb 27, 2017 10:44
--- NOTE | 2017-02-27 11:50 | CONS ---
Date/Time of Note Date/Time of Note DATE: 02/27/17 TIME: 11:48 Consult Date/Type/Reason Admit Date/Time Jan 22, 2017 at 14:12 Initial Consult Date 01/23/17 Type of Consultation: Urology Reason for Consultation Bilateral hydronephrosis and urinary retention Ordering Provider: DAYANARA BROWN MD Subjective The patient is feeling better she was up and around walking in the hallway Objective Vital Signs Date Time Temp Pulse Resp B/P Pulse Ox O2 Delivery O2 Flow Rate FiO2 02/27/17 05:47 109 122/74 02/27/17 04:27 98.2 17 96 Intake and Output 02/26/17 02/26/17 02/27/17 15:00 23:00 07:00 Intake Total 860 ml 730 ml Output Total 1365 ml 614 ml Balance -505 ml 116 ml Exam Patient is status post cystoscopy and insertion of bilateral JJ stents, debulking of the ovarian tumor. She is doing better Results/Medications Result Diagram: 02/26/17 0549 02/26/17 0549 Results 24 hrs Laboratory Tests Test 02/26/17 13:52 02/26/17 21:33 02/27/17 05:36 Bedside Glucose 104 98 111 Medications Current Medications Acetaminophen (Tylenol Tab) 650 mg Q6H PRN PO PAIN LEVEL 1-3 OR FEVER Last administered on 02/06/17 23:54; Admin Dose 650 MG; Start 01/22/17 at 16:00; Status Future Hold Docusate Sodium (Colace) 100 mg Q12H PRN PO CONSTIPATION; Start 01/22/17 at 16 :00 Magnesium Hydroxide (Milk Of Mag) 30 ml DAILY PRN PO CONSTIPATION Last administered on 01/31/17 07:38; Admin Dose 30 ML; Start 01/22/17 at 16:00 Bisacodyl (Dulcolax) 5 mg DAILY PRN PO CONSTIPATION Last administered on 05:07; Admin Dose 5 MG; Start 01/22/17 at 16:00 Polyethylene Glycol (Miralax) 17 gm DAILY PO Last administered on 02/25/17 08 :25; Admin Dose 17 GM; Start 01/26/17 at 15:30 Sodium Biphosphate/ Sodium Phosphate (Fleet Enema) 133 ml DAILY PRN [place] CONSTIPATION Last administered on 01/27/17 06:17; Admin Dose 133 ML; Start at 20:30 Morphine Sulfate 2 mg 2 mg Q2H PRN IV PAIN LEVEL 7-10 Last administered on 13:47; Admin Dose 2 MG; Start 01/28/17 at 14:00 Ondansetron HCl/ Dextrose (Zofran Inj/D5W) 54 ml @ 108 mls/hr Q6H PRN IV NAUSEA AND/OR VOMITING; Start 01/31/17 at 12:00 Hydromorphone HCl (Dilaudid) 1 mg Q2H PRN IV PAIN LEVEL 6-10 Last administered on 02/27/17 08:59; Admin Dose 1 MG; Start 02/02/17 at 11:30 Acetaminophen (Tylenol Liquid) 650 mg Q4H PRN GTB PAIN AND OR ELEVATED TEMP Last administered on 02/06/17 16:19; Admin Dose 650 MG; Start 02/04/17 at 08:30 ; Status Future Hold Docusate Sodium 100 mg 100 mg BID NGT Last administered on 02/26/17 21:19; Admin Dose 100 MG; Start 02/05/17 at 09:00 Fat Emulsion Intravenous 250 ml @ 10 mls/hr Q24H IV Last administered on 02/26 21:18; Admin Dose 10 MLS/HR; Start 02/05/17 at 20:00 Total Parenteral Nutrition (Tpn) 1,000 ml @ 40 mls/hr Q24H IV Last administered on 02/26/17 18:26; Admin Dose 40 MLS/HR; Start 02/05/17 at 20:00 Diagnostic Test (Pha) (Accu-Chek) 1 ea Q8 XX Last administered on 02/27/17 05 :37; Admin Dose 1 EA; Start 02/07/17 at 22:00 Ondansetron HCl (Zofran Inj) 4 mg Q6H PRN IV NAUSEA AND/OR VOMITING Last administered on 02/24/17 04:29; Admin Dose 4 MG; Start 02/13/17 at 14:30 Furosemide (Lasix) 40 mg DAILY@06 PO Last administered on 02/27/17 05:44; Admin Dose 40 MG; Start 02/19/17 at 11:30 Enoxaparin Sodium 65 mg 65 mg Q12H SC Last administered on 02/27/17 03:46; Admin Dose 65 MG; Start 02/21/17 at 16:00 Vancomycin HCl/ Dextrose/Water (Vancocin/D5W) 150 ml @ 75 mls/hr Q12H IVPB Last administered on 02/27/17 03:45; Admin Dose 75 MLS/HR; Start 02/23/17 at 16:00 Lactobacillus Acidophilus/ Rhamnosus (Culturelle) 1 cap BID PO Last administered on 02/27/17 08:58; Admin Dose 1 CAP; Start 02/24/17 at 21:00 Megestrol Acetate (Megace Susp) 400 mg BID PO Last administered on 02/27/17 08:58; Admin Dose 400 MG; Start 02/24/17 at 16:00 Pantoprazole (Protonix Tab) 40 mg DAILY@06 PO Last administered on 02/27/17 05:37; Admin Dose 40 MG; Start 02/26/17 at 06:00 Assessment/Plan Chief Complaint/Hosp Course 56-year-old female with stage IV ovarian cancer presented to the hospital with abdominal pain. CT scan of the abdomen and pelvis showed bilateral hydronephrosis more severe on the right side. The patient underwent paracentesis and 4 Liters were drained and sent for cytology. The pathology report came out as ovarian cancer. the patient underwent cystoscopy and insertion of bilateral JJ stents . The patient had debulking of the tumor by Dr. Ramirez. From a urological standpoint at the present she does have the bilateral JJ stents and her renal function is stable. If she gets better and respond to treatment then later on in the future she will need the stents removed and may be replaced Problems: EMILIE ALBERT MD Feb 27, 2017 11:50
[2017-02-27 16:40] VITALS: BP 120/72; RESP 18
[2017-02-27] MEDS: FAT EMULSION 20% 250 ML IV SCH (17:29)
[2017-02-27] MEDS: TPN 1,000 ML IV SCH (17:30)
--- NOTE | 2017-02-27 19:14 | CONS ---
Date/Time of Note Date/Time of Note DATE: 02/27/17 TIME: 19:09 Assessment/Plan Assessment/Plan Chief Complaint/Hosp Course ID PROGRESS NOTE CURRENT ABX: DAY #9 => Vanco IV s/p Cancidas 24H INTERVAL SUMMARY * NO fevers, WBC up yesterday, she walked in hallway w/FWW today * CXR 02/27/17 IMPRESSION:1. Right IJ catheter removed. 2. Improved aeration of the left lung base. 3. Surgical drains in the abdomen. 4. Otherwise unremarkable chest radiograph. * Hospital course events:s/p respiratory failure-> NOW Extubated & stable on room air , s/p IVC Filter for PE 02/12/17 Physical Exam Physical Exam Constitutional: Awake, alert, responsive, VSS, NAD, feels good HEENT: At, NC, anicteric Neck: Trach midline, neck supple Respiratory: Clear anterior, diminished BLL Cardiovascular: NSR on tele, radial pulses 2+ bilaterally Gastrointestinal: Soft, BS + Extremities: Warm, no cyanosis, trace edema Neurological: No focal deficits ID ASSESSMENT 56 yo F admit with 1. s/p Recurrent Sepsis w/FEVER > 102 on 02/19 + leukocytosis => LINE sepsis, line removed => RESOLVING * WBC elevated ? = reactive? no fevers 2. Bacteremia with blood culture growing gram-positive cocci=> Line DC;d => Repeat BCx (-) * 02/19 -> BCx (+)Staph aureus, repeat BC x 02/20 (+)GPC -> TLC removed 3. Metastatic ovarian cancer, status post ureteral dissection, omentectomy with splenectomy and cytoreduction on 02/02/2017. * CAMRYN drains present 4. Status post alpha hemolytic strep urinary tract infection on admission-> * Urine Cx 02/04/17 (-) 6. Bilateral hydronephrosis, status post JJ stent insertion on 01/24/2017. 7. s/p Respiratory failure-> Extubated and stable on room air 8. Anemia. ( -)MRSA Nares ABX ALLERGIES: KNDA CURRENT ABX: DAY #9 => Vanco IV s/p Cancidas ID RECOMMENDATIONS 1. Continue Vanco IV to complete course for (+)BCx => Last day next week . Problems: Consultation Date/Type/Reason Admit Date/Time Jan 22, 2017 at 14:12 Initial Consult Date 02/03/17 Type of Consultation: ID Referring Provider: DAYANARA BROWN MD Exam/Review of Systems Vital Signs Vitals Vital Signs Date Time Temp Pulse Resp B/P Pulse Ox O2 Delivery O2 Flow Rate FiO2 02/27/17 16:40 98.1 96 18 120/72 90 Intake and Output 02/26/17 02/26/17 02/27/17 15:00 23:00 07:00 Intake Total 860 ml 730 ml Output Total 1365 ml 614 ml Balance -505 ml 116 ml Results Result Diagram: 02/26/17 0549 02/26/17 0549 Results 24 hrs Laboratory Tests Test 02/26/17 21:33 02/27/17 05:36 02/27/17 14:26 Bedside Glucose 98 111 118 Medications Medications Current Medications Acetaminophen (Tylenol Tab) 650 mg Q6H PRN PO PAIN LEVEL 1-3 OR FEVER Last administered on 02/06/17 23:54; Admin Dose 650 MG; Start 01/22/17 at 16:00; Status Future Hold Docusate Sodium (Colace) 100 mg Q12H PRN PO CONSTIPATION; Start 01/22/17 at 16 :00 Magnesium Hydroxide (Milk Of Mag) 30 ml DAILY PRN PO CONSTIPATION Last administered on 01/31/17 07:38; Admin Dose 30 ML; Start 01/22/17 at 16:00 Bisacodyl (Dulcolax) 5 mg DAILY PRN PO CONSTIPATION Last administered on 05:07; Admin Dose 5 MG; Start 01/22/17 at 16:00 Polyethylene Glycol (Miralax) 17 gm DAILY PO Last administered on 02/25/17 08 :25; Admin Dose 17 GM; Start 01/26/17 at 15:30 Sodium Biphosphate/ Sodium Phosphate (Fleet Enema) 133 ml DAILY PRN [place] CONSTIPATION Last administered on 01/27/17 06:17; Admin Dose 133 ML; Start at 20:30 Morphine Sulfate 2 mg 2 mg Q2H PRN IV PAIN LEVEL 7-10 Last administered on 13:47; Admin Dose 2 MG; Start 01/28/17 at 14:00 Ondansetron HCl/ Dextrose (Zofran Inj/D5W) 54 ml @ 108 mls/hr Q6H PRN IV NAUSEA AND/OR VOMITING; Start 01/31/17 at 12:00 Hydromorphone HCl (Dilaudid) 1 mg Q2H PRN IV PAIN LEVEL 6-10 Last administered on 02/27/17 08:59; Admin Dose 1 MG; Start 02/02/17 at 11:30 Acetaminophen (Tylenol Liquid) 650 mg Q4H PRN GTB PAIN AND OR ELEVATED TEMP Last administered on 02/06/17 16:19; Admin Dose 650 MG; Start 02/04/17 at 08:30 ; Status Future Hold Docusate Sodium 100 mg 100 mg BID NGT Last administered on 02/26/17 21:19; Admin Dose 100 MG; Start 02/05/17 at 09:00 Fat Emulsion Intravenous 250 ml @ 10 mls/hr Q24H IV Last administered on 02/27 17:29; Admin Dose 10 MLS/HR; Start 02/05/17 at 20:00 Total Parenteral Nutrition (Tpn) 1,000 ml @ 40 mls/hr Q24H IV Last administered on 02/27/17 17:30; Admin Dose 40 MLS/HR; Start 02/05/17 at 20:00 Diagnostic Test (Pha) (Accu-Chek) 1 ea Q8 XX Last administered on 02/27/17 14 :28; Admin Dose 1 EA; Start 02/07/17 at 22:00 Ondansetron HCl (Zofran Inj) 4 mg Q6H PRN IV NAUSEA AND/OR VOMITING Last administered on 02/24/17 04:29; Admin Dose 4 MG; Start 02/13/17 at 14:30 Furosemide (Lasix) 40 mg DAILY@06 PO Last administered on 02/27/17 05:44; Admin Dose 40 MG; Start 02/19/17 at 11:30 Enoxaparin Sodium 65 mg 65 mg Q12H SC Last administered on 02/27/17 17:46; Admin Dose 65 MG; Start 02/21/17 at 16:00 Vancomycin HCl/ Dextrose/Water (Vancocin/D5W) 150 ml @ 75 mls/hr Q12H IVPB Last administered on 02/27/17 17:28; Admin Dose 75 MLS/HR; Start 02/23/17 at 16:00 Lactobacillus Acidophilus/ Rhamnosus (Culturelle) 1 cap BID PO Last administered on 02/27/17 08:58; Admin Dose 1 CAP; Start 02/24/17 at 21:00 Megestrol Acetate (Megace Susp) 400 mg BID PO Last administered on 02/27/17 08:58; Admin Dose 400 MG; Start 02/24/17 at 16:00 Pantoprazole (Protonix Tab) 40 mg DAILY@06 PO Last administered on 02/27/17 05:37; Admin Dose 40 MG; Start 02/26/17 at 06:00 Miscellaneous Information (*Rx Drug Level Order Reminder*) VANCO TROUGH @ 1, 500 ON ... ONCE ONCE XX ; Start 02/28/17 at 15:00; Stop 02/28/17 at 15:01 LINDA ESTES NP Feb 27, 2017 19:14
[2017-02-27 20:21] VITALS: BP 111/66; RESP 18
[2017-02-28] MEDS ORDERED: HALOPERIDOL 5 MG INJ IM ONE (01:00)
[2017-02-28 02:00] VITALS: BP 115/66; RESP 18
[2017-02-28 02:31] VITALS: BP 114/62; PULSE 72; RESP 18
[2017-02-28] MEDS: VANCOMYCIN 750 MG in DEXTROSE 5% 150 ML IVPB SCH ×2 (03:54→16:37)
[2017-02-28] MEDS: ENOXAPARIN 80 MG/0.8 ML SYG SC SCH ×2 (03:59→16:38)
[2017-02-28 04:00] VITALS: BP 118/72; RESP 19
[2017-02-28] MEDS: BISACODYL (EC) 5 MG TAB PO PRN (04:05)
[2017-02-28 05:54] LABS: CALCIUM 9.4 mg/dl (8.4-10.2); CREATININE 0.58 mg/dl (0.44-1.00); MAGNESIUM 1.9 mg/dl (1.7-2.5); PHOSPHORUS 4.4 mg/dl (2.5-4.9); POTASSIUM 4.1 mmol/L (3.5-5.1)
[2017-02-28] MEDS: PANTOPRAZOLE (EC) 40 MG TAB PO SCH (06:36)
[2017-02-28] MEDS: ACCU-CHEK XX SCH ×3 (06:36→22:05)
[2017-02-28] MEDS: FUROSEMIDE 40 MG TAB PO SCH (06:36)
[2017-02-28 07:45] VITALS: BP 130/72; RESP 18
[2017-02-28 08:05] LABS: PREALBUMIN 7.3 mg/dl (17.6-36.0)
[2017-02-28] MEDS: POLYETHYLENE GLYCOL 17 GM PACKET PO SCH (09:00)
[2017-02-28] MEDS: DOCUSATE SODIUM 10 MG/ML (10ML CUP) NGT SCH (09:00)
[2017-02-28] MEDS: MEGESTROL (40 MG/ML) 10ML CUP PO SCH ×2 (09:33→21:03)
[2017-02-28] MEDS: LACTOBACILLUS RHAMNOSUS CAP PO SCH ×2 (09:33→21:03)
[2017-02-28] MEDS: HYDROmorphONE 0.5 MG/0.5 ML SYG IV PRN ×2 (09:41→21:22)
[2017-02-28 14:00] VITALS: BP 120/78; RESP 20
--- NOTE | 2017-02-28 17:53 | PN ---
Date/Time of Note Date/Time of Note DATE: 02/28/17 TIME: 17:52 Assessment/Plan VTE Prophylaxis VTE Prophylaxis Intervention: LMWH Lines/Catheters IV Catheter Type (from Nrs): Peripheral IV Urinary Cath still in place: Yes Reason Cath still needed: urinary retention Assessment/Plan Chief Complaint/Hosp Course Hospitalist team service coverage S: 02/23: Events noted 02/24: no events 02/25: delirium; non focal. follows commands. . son updated; refuses chemo. 02/26: Still in delirium but less agitated at the moment. No nausea vomiting. Poor appetite. 02/27: No dyspnea fever chills. Oriented to 2016. Not oriented to February. 02/28: Ambulate a little bit. O: Vss PE No pallor. Positive bitemporal wasting Reg Dimin but clear Bs dimin; diffuse tender nd no R/R/G No edema IVpicc c/d/i. Neuro: non focal A/P 1. Recurrent metastatic ovarian Ca. S/p ureteral dissection, omentectomy, splenectomy, cytoreduction 02/02. Stable treat pain. Guarded. Refused chemo. Recomm Palliative Care. 2. PE. IVC filter status; coumadin? 3. Delirium. Cont reorientation and reassurance. nonfocal. DC tethers [tpn/ ivfs/ sen] if possible. meds/mri reviewed. 4. Sirs 5. Stage IV ovarian Ca. Palliative care. 6. Past tobacco 7. Anemia 8. Obstructive uropathy status post double-J stent 9. Malnutrition; DC TPN? on megace 10. Hypothyroidism 11. Splenectomy status 12. FTT; snf vs Hospice. 10. Leukocytosis. Change Sen/ lines? DC TPN if possible. Problems: Exam/Review of Systems Vital Signs Vitals Vital Signs Date Time Temp Pulse Resp B/P Pulse Ox O2 Delivery O2 Flow Rate FiO2 02/28/17 14:00 98.1 121 20 120/78 98 02/28/17 02:31 Room Air Intake and Output 02/27/17 02/27/17 02/28/17 14:59 22:59 06:59 Intake Total 1310 ml 880 ml Output Total 1150 ml 763 ml Balance 160 ml 117 ml Results Result Diagram: 02/26/17 0549 02/28/17 0456 Results 24 hrs Laboratory Tests Test 02/27/17 20:59 02/28/17 04:56 02/28/17 06:34 02/28/17 14:31 Bedside Glucose 96 98 103 Sodium Level 138 Potassium Level 4.1 Chloride Level 101 Carbon Dioxide Level 27 Anion Gap 14 Blood Urea Nitrogen 16 Creatinine 0.58 Glucose Level 109 Calcium Level 9.4 Phosphorus Level 4.4 Magnesium Level 1.9 Prealbumin 7.3 L Triglycerides Level 120 Test 02/28/17 15:04 Vancomycin Level Trough 13.4 Medications Medications Current Medications Acetaminophen (Tylenol Tab) 650 mg Q6H PRN PO PAIN LEVEL 1-3 OR FEVER Last administered on 02/06/17 23:54; Admin Dose 650 MG; Start 01/22/17 at 16:00; Status Future Hold Docusate Sodium (Colace) 100 mg Q12H PRN PO CONSTIPATION; Start 01/22/17 at 16 :00 Magnesium Hydroxide (Milk Of Mag) 30 ml DAILY PRN PO CONSTIPATION Last administered on 01/31/17 07:38; Admin Dose 30 ML; Start 01/22/17 at 16:00 Bisacodyl (Dulcolax) 5 mg DAILY PRN PO CONSTIPATION Last administered on 04:05; Admin Dose 5 MG; Start 01/22/17 at 16:00 Polyethylene Glycol (Miralax) 17 gm DAILY PO Last administered on 02/25/17 08 :25; Admin Dose 17 GM; Start 01/26/17 at 15:30 Sodium Biphosphate/ Sodium Phosphate (Fleet Enema) 133 ml DAILY PRN [place] CONSTIPATION Last administered on 01/27/17 06:17; Admin Dose 133 ML; Start at 20:30 Morphine Sulfate 2 mg 2 mg Q2H PRN IV PAIN LEVEL 7-10 Last administered on 13:47; Admin Dose 2 MG; Start 01/28/17 at 14:00 Ondansetron HCl/ Dextrose (Zofran Inj/D5W) 54 ml @ 108 mls/hr Q6H PRN IV NAUSEA AND/OR VOMITING; Start 01/31/17 at 12:00 Hydromorphone HCl (Dilaudid) 1 mg Q2H PRN IV PAIN LEVEL 6-10 Last administered on 02/28/17 09:41; Admin Dose 1 MG; Start 02/02/17 at 11:30 Acetaminophen (Tylenol Liquid) 650 mg Q4H PRN GTB PAIN AND OR ELEVATED TEMP Last administered on 02/06/17 16:19; Admin Dose 650 MG; Start 02/04/17 at 08:30 ; Status Future Hold Docusate Sodium 100 mg 100 mg BID NGT Last administered on 02/26/17 21:19; Admin Dose 100 MG; Start 02/05/17 at 09:00 Fat Emulsion Intravenous 250 ml @ 10 mls/hr Q24H IV Last administered on 02/27 17:29; Admin Dose 10 MLS/HR; Start 02/05/17 at 20:00 Total Parenteral Nutrition (Tpn) 1,000 ml @ 40 mls/hr Q24H IV Last administered on 02/27/17 17:30; Admin Dose 40 MLS/HR; Start 02/05/17 at 20:00 Diagnostic Test (Pha) (Accu-Chek) 1 ea Q8 XX Last administered on 02/28/17 06 :36; Admin Dose 1 EA; Start 02/07/17 at 22:00 Ondansetron HCl (Zofran Inj) 4 mg Q6H PRN IV NAUSEA AND/OR VOMITING Last administered on 02/24/17 04:29; Admin Dose 4 MG; Start 02/13/17 at 14:30 Furosemide (Lasix) 40 mg DAILY@06 PO Last administered on 02/28/17 06:36; Admin Dose 40 MG; Start 02/19/17 at 11:30 Enoxaparin Sodium 65 mg 65 mg Q12H SC Last administered on 02/28/17 16:38; Admin Dose 65 MG; Start 02/21/17 at 16:00 Vancomycin HCl/ Dextrose/Water (Vancocin/D5W) 150 ml @ 75 mls/hr Q12H IVPB Last administered on 02/28/17 16:37; Admin Dose 75 MLS/HR; Start 02/23/17 at 16:00 Lactobacillus Acidophilus/ Rhamnosus (Culturelle) 1 cap BID PO Last administered on 02/28/17 09:33; Admin Dose 1 CAP; Start 02/24/17 at 21:00 Megestrol Acetate (Megace Susp) 400 mg BID PO Last administered on 02/28/17 09:33; Admin Dose 400 MG; Start 02/24/17 at 16:00 Pantoprazole (Protonix Tab) 40 mg DAILY@06 PO Last administered on 02/28/17 06:36; Admin Dose 40 MG; Start 02/26/17 at 06:00 FRANKIE MENDOZA MD Feb 28, 2017 17:53
[2017-02-28] MEDS: TPN 1,000 ML IV SCH (18:20)
--- NOTE | 2017-02-28 19:22 | CONS ---
Date/Time of Note Date/Time of Note DATE: 02/28/17 TIME: 19:21 Assessment/Plan Assessment/Plan Chief Complaint/Hosp Course ID PROGRESS NOTE CURRENT ABX: DAY #10=> Vanco IV s/p Cancidas 24H INTERVAL SUMMARY * Awake, confused, NO fevers, WBC up 2 days ago, no fevers * CXR 02/27/17 IMPRESSION:1. Right IJ catheter removed. 2. Improved aeration of the left lung base. 3. Surgical drains in the abdomen. 4. Otherwise unremarkable chest radiograph. * Hospital course events:s/p respiratory failure-> NOW Extubated & stable on room air , s/p IVC Filter for PE 02/12/17 Physical Exam Physical Exam Constitutional: Awake, alert, responsive, VSS, NAD, feels good HEENT: At, NC, anicteric Neck: Trach midline, neck supple Respiratory: Clear anterior, diminished BLL Cardiovascular: NSR on tele, radial pulses 2+ bilaterally Gastrointestinal: Soft, BS + Extremities: Warm, no cyanosis, trace edema Neurological: No focal deficits ID ASSESSMENT 56 yo F admit with 1. s/p Recurrent Sepsis w/FEVER > 102 on 02/19 + leukocytosis => LINE sepsis, line removed => RESOLVING * WBC elevated ? = reactive? no fevers 2. Bacteremia with blood culture growing gram-positive cocci=> Line DC;d => Repeat BCx (-) * 02/19 -> BCx (+)Staph aureus, repeat BC x 02/20 (+)GPC -> TLC removed 3. Metastatic ovarian cancer, status post ureteral dissection, omentectomy with splenectomy and cytoreduction on 02/02/2017. * CAMRYN drains present 4. Status post alpha hemolytic strep urinary tract infection on admission-> * Urine Cx 02/04/17 (-) 6. Bilateral hydronephrosis, status post JJ stent insertion on 01/24/2017. 7. s/p Respiratory failure-> Extubated and stable on room air 8. Anemia. ( -)MRSA Nares ABX ALLERGIES: KNDA CURRENT ABX: DAY #10 => Vanco IV s/p Cancidas ID RECOMMENDATIONS 1. Continue Vanco IV to complete course for (+)BCx => Last day next week . Problems: Consultation Date/Type/Reason Admit Date/Time Jan 22, 2017 at 14:12 Initial Consult Date 02/03/17 Type of Consultation: ID Referring Provider: DAYANARA BROWN MD Exam/Review of Systems Vital Signs Vitals Vital Signs Date Time Temp Pulse Resp B/P Pulse Ox O2 Delivery O2 Flow Rate FiO2 02/28/17 14:00 98.1 121 20 120/78 98 02/28/17 02:31 Room Air Intake and Output 02/27/17 02/27/17 02/28/17 15:00 23:00 07:00 Intake Total 1310 ml 880 ml Output Total 1150 ml 763 ml Balance 160 ml 117 ml Results Result Diagram: 02/26/17 0549 02/28/17 0456 Results 24 hrs Laboratory Tests Test 02/27/17 20:59 02/28/17 04:56 02/28/17 06:34 02/28/17 14:31 Bedside Glucose 96 98 103 Sodium Level 138 Potassium Level 4.1 Chloride Level 101 Carbon Dioxide Level 27 Anion Gap 14 Blood Urea Nitrogen 16 Creatinine 0.58 Glucose Level 109 Calcium Level 9.4 Phosphorus Level 4.4 Magnesium Level 1.9 Prealbumin 7.3 L Triglycerides Level 120 Test 02/28/17 15:04 Vancomycin Level Trough 13.4 Medications Medications Current Medications Acetaminophen (Tylenol Tab) 650 mg Q6H PRN PO PAIN LEVEL 1-3 OR FEVER Last administered on 02/06/17 23:54; Admin Dose 650 MG; Start 01/22/17 at 16:00; Status Future Hold Docusate Sodium (Colace) 100 mg Q12H PRN PO CONSTIPATION; Start 01/22/17 at 16 :00 Magnesium Hydroxide (Milk Of Mag) 30 ml DAILY PRN PO CONSTIPATION Last administered on 01/31/17 07:38; Admin Dose 30 ML; Start 01/22/17 at 16:00 Bisacodyl (Dulcolax) 5 mg DAILY PRN PO CONSTIPATION Last administered on 04:05; Admin Dose 5 MG; Start 01/22/17 at 16:00 Sodium Biphosphate/ Sodium Phosphate (Fleet Enema) 133 ml DAILY PRN [place] CONSTIPATION Last administered on 01/27/17 06:17; Admin Dose 133 ML; Start at 20:30 Morphine Sulfate 2 mg 2 mg Q2H PRN IV PAIN LEVEL 7-10 Last administered on 13:47; Admin Dose 2 MG; Start 01/28/17 at 14:00 Ondansetron HCl/ Dextrose (Zofran Inj/D5W) 54 ml @ 108 mls/hr Q6H PRN IV NAUSEA AND/OR VOMITING; Start 01/31/17 at 12:00 Hydromorphone HCl (Dilaudid) 1 mg Q2H PRN IV PAIN LEVEL 6-10 Last administered on 02/28/17 09:41; Admin Dose 1 MG; Start 02/02/17 at 11:30 Acetaminophen 650 mg 650 mg Q4H PRN GTB PAIN AND OR ELEVATED TEMP Last administered on 02/06/17 16:19; Admin Dose 650 MG; Start 02/04/17 at 08:30; Status Future Hold Fat Emulsion Intravenous 250 ml @ 10 mls/hr Q24H IV Last administered on 02/27 17:29; Admin Dose 10 MLS/HR; Start 02/05/17 at 20:00 Total Parenteral Nutrition (Tpn) 1,000 ml @ 40 mls/hr Q24H IV Last administered on 02/28/17 18:20; Admin Dose 40 MLS/HR; Start 02/05/17 at 20:00 Diagnostic Test (Pha) (Accu-Chek) 1 ea Q8 XX Last administered on 02/28/17 06 :36; Admin Dose 1 EA; Start 02/07/17 at 22:00 Ondansetron HCl (Zofran Inj) 4 mg Q6H PRN IV NAUSEA AND/OR VOMITING Last administered on 02/24/17 04:29; Admin Dose 4 MG; Start 02/13/17 at 14:30 Furosemide (Lasix) 40 mg DAILY@06 PO Last administered on 02/28/17 06:36; Admin Dose 40 MG; Start 02/19/17 at 11:30 Enoxaparin Sodium 65 mg 65 mg Q12H SC Last administered on 02/28/17 16:38; Admin Dose 65 MG; Start 02/21/17 at 16:00 Vancomycin HCl/ Dextrose/Water (Vancocin/D5W) 150 ml @ 75 mls/hr Q12H IVPB Last administered on 02/28/17 16:37; Admin Dose 75 MLS/HR; Start 02/23/17 at 16:00 Lactobacillus Acidophilus/ Rhamnosus (Culturelle) 1 cap BID PO Last administered on 02/28/17 09:33; Admin Dose 1 CAP; Start 02/24/17 at 21:00 Megestrol Acetate (Megace Susp) 400 mg BID PO Last administered on 02/28/17 09:33; Admin Dose 400 MG; Start 02/24/17 at 16:00 Pantoprazole (Protonix Tab) 40 mg DAILY@06 PO Last administered on 02/28/17 06:36; Admin Dose 40 MG; Start 02/26/17 at 06:00 LINDA ESTES NP Feb 28, 2017 19:22
--- NOTE | 2017-02-28 20:01 | CONS ---
Date/Time of Note Date/Time of Note DATE: 02/28/17 TIME: 19:58 Consult Date/Type/Reason Admit Date/Time Jan 22, 2017 at 14:12 Initial Consult Date 01/23/17 Type of Consultation: Urology Reason for Consultation Bilateral hydronephrosis Ordering Provider: DAYANARA BROWN MD Subjective The patient is feeling better but confused and at times trying to pull out her tubes, therefore she was placed on one-to-one Objective Vital Signs Date Time Temp Pulse Resp B/P Pulse Ox O2 Delivery O2 Flow Rate FiO2 02/28/17 14:00 98.1 121 20 120/78 98 02/28/17 02:31 Room Air Intake and Output 02/27/17 02/27/17 02/28/17 15:00 23:00 07:00 Intake Total 1310 ml 880 ml Output Total 1150 ml 763 ml Balance 160 ml 117 ml Exam Abdomen is soft. Scars from her recent surgeries Results/Medications Result Diagram: 02/26/17 0549 02/28/17 0456 Results 24 hrs Laboratory Tests Test 02/27/17 20:59 02/28/17 04:56 02/28/17 06:34 02/28/17 14:31 Bedside Glucose 96 98 103 Sodium Level 138 Potassium Level 4.1 Chloride Level 101 Carbon Dioxide Level 27 Anion Gap 14 Blood Urea Nitrogen 16 Creatinine 0.58 Glucose Level 109 Calcium Level 9.4 Phosphorus Level 4.4 Magnesium Level 1.9 Prealbumin 7.3 L Triglycerides Level 120 Test 02/28/17 15:04 Vancomycin Level Trough 13.4 Medications Current Medications Acetaminophen (Tylenol Tab) 650 mg Q6H PRN PO PAIN LEVEL 1-3 OR FEVER Last administered on 02/06/17 23:54; Admin Dose 650 MG; Start 01/22/17 at 16:00; Status Future Hold Docusate Sodium (Colace) 100 mg Q12H PRN PO CONSTIPATION; Start 01/22/17 at 16 :00 Magnesium Hydroxide (Milk Of Mag) 30 ml DAILY PRN PO CONSTIPATION Last administered on 01/31/17 07:38; Admin Dose 30 ML; Start 01/22/17 at 16:00 Bisacodyl (Dulcolax) 5 mg DAILY PRN PO CONSTIPATION Last administered on 04:05; Admin Dose 5 MG; Start 01/22/17 at 16:00 Sodium Biphosphate/ Sodium Phosphate (Fleet Enema) 133 ml DAILY PRN [place] CONSTIPATION Last administered on 01/27/17 06:17; Admin Dose 133 ML; Start at 20:30 Morphine Sulfate 2 mg 2 mg Q2H PRN IV PAIN LEVEL 7-10 Last administered on 13:47; Admin Dose 2 MG; Start 01/28/17 at 14:00 Ondansetron HCl/ Dextrose (Zofran Inj/D5W) 54 ml @ 108 mls/hr Q6H PRN IV NAUSEA AND/OR VOMITING; Start 01/31/17 at 12:00 Hydromorphone HCl (Dilaudid) 1 mg Q2H PRN IV PAIN LEVEL 6-10 Last administered on 02/28/17 09:41; Admin Dose 1 MG; Start 02/02/17 at 11:30 Acetaminophen 650 mg 650 mg Q4H PRN GTB PAIN AND OR ELEVATED TEMP Last administered on 02/06/17 16:19; Admin Dose 650 MG; Start 02/04/17 at 08:30; Status Future Hold Fat Emulsion Intravenous 250 ml @ 10 mls/hr Q24H IV Last administered on 02/27 17:29; Admin Dose 10 MLS/HR; Start 02/05/17 at 20:00 Total Parenteral Nutrition (Tpn) 1,000 ml @ 40 mls/hr Q24H IV Last administered on 02/28/17 18:20; Admin Dose 40 MLS/HR; Start 02/05/17 at 20:00 Diagnostic Test (Pha) (Accu-Chek) 1 ea Q8 XX Last administered on 02/28/17 06 :36; Admin Dose 1 EA; Start 02/07/17 at 22:00 Ondansetron HCl (Zofran Inj) 4 mg Q6H PRN IV NAUSEA AND/OR VOMITING Last administered on 02/24/17 04:29; Admin Dose 4 MG; Start 02/13/17 at 14:30 Furosemide (Lasix) 40 mg DAILY@06 PO Last administered on 02/28/17 06:36; Admin Dose 40 MG; Start 02/19/17 at 11:30 Enoxaparin Sodium 65 mg 65 mg Q12H SC Last administered on 02/28/17 16:38; Admin Dose 65 MG; Start 02/21/17 at 16:00 Vancomycin HCl/ Dextrose/Water (Vancocin/D5W) 150 ml @ 75 mls/hr Q12H IVPB Last administered on 02/28/17 16:37; Admin Dose 75 MLS/HR; Start 02/23/17 at 16:00 Lactobacillus Acidophilus/ Rhamnosus (Culturelle) 1 cap BID PO Last administered on 02/28/17 09:33; Admin Dose 1 CAP; Start 02/24/17 at 21:00 Megestrol Acetate (Megace Susp) 400 mg BID PO Last administered on 02/28/17 09:33; Admin Dose 400 MG; Start 02/24/17 at 16:00 Pantoprazole (Protonix Tab) 40 mg DAILY@06 PO Last administered on 02/28/17 06:36; Admin Dose 40 MG; Start 02/26/17 at 06:00 Assessment/Plan Chief Complaint/Hosp Course 56-year-old female with stage IV ovarian cancer presented to the hospital with abdominal pain. CT scan of the abdomen and pelvis showed bilateral hydronephrosis more severe on the right side. The patient underwent paracentesis and 4 Liters were drained and sent for cytology. The pathology report came out as ovarian cancer. the patient underwent cystoscopy and insertion of bilateral JJ stents . The patient had debulking of the tumor by Dr. Ramirez. From a urological standpoint at the present she does have the bilateral JJ stents and her renal function is stable. I did again explained to her that the JJ stents would have to be removed and replaced in about 3 months. Problems: EMILIE ALBERT MD Feb 28, 2017 20:01
[2017-02-28] MEDS: FAT EMULSION 20% 250 ML IV SCH (21:03)
--- NOTE | 2017-02-28 22:44 | PN ---
Date/Time of Note Date/Time of Note DATE: 02/28/17 TIME: 22:40 Assessment/Plan VTE Prophylaxis VTE Prophylaxis Intervention: heparin Lines/Catheters IV Catheter Type (from Nrs): Peripheral IV Urinary Cath still in place: Yes Reason Cath still needed: urinary retention Assessment/Plan Chief Complaint/Hosp Course Stage IIIc - IV ovarian cancer Problems: Assessment/Plan A- clinical impvt poor diet put ONLY due to TPN diet P- Will d/c TPN and it will improve diet Anticipate chemo soon in [facility] [employer] Will resume bladder training Subjective 24 Hr Interval Summary Free Text/Dictation Feels better and anxious. Eats minimal Exam/Review of Systems Vital Signs Vitals Vital Signs Date Time Temp Pulse Resp B/P Pulse Ox O2 Delivery O2 Flow Rate FiO2 02/28/17 14:00 98.1 121 20 120/78 98 02/28/17 02:31 Room Air Intake and Output 02/27/17 02/27/17 02/28/17 15:00 23:00 07:00 Intake Total 1310 ml 880 ml Output Total 1150 ml 763 ml Balance 160 ml 117 ml Exam Resp- clear CVS- NSR Abd- softer less pain Ext- NT Constitutional: alert, oriented, well developed Psych: nl mood/affect, no complaints Head: atraumatic, normocephalic Eyes: EOMI, PERRL, nl conjunctiva, nl lids, nl sclera ENMT: nl external ears & nose, nl lips & teeth, nl nasal mucosa & septum Neck: non-tender, supple Respiratory: clear to auscultation, normal air movement Cardiovascular: nl pulses, regular rate and rhythm Gastrointestinal: nl liver, spleen, non-tender, soft Musculoskeletal: nl extremities to inspection, nl gait and stance Extremities: normal pulses Neurological: RESIDENCE LEASING AGENT II-XII intact, nl mental status, nl speech, nl strength Skin: nl turgor, No rash or lesions Lymph: nl lymph nodes Results Result Diagram: 02/26/17 0549 02/28/17 0456 Results 24 hrs Laboratory Tests Test 02/28/17 04:56 02/28/17 06:34 02/28/17 14:31 02/28/17 15:04 Sodium Level 138 Potassium Level 4.1 Chloride Level 101 Carbon Dioxide Level 27 Anion Gap 14 Blood Urea Nitrogen 16 Creatinine 0.58 Glucose Level 109 Calcium Level 9.4 Phosphorus Level 4.4 Magnesium Level 1.9 Prealbumin 7.3 L Triglycerides Level 120 Bedside Glucose 98 103 Vancomycin Level Trough 13.4 Test 02/28/17 22:04 Bedside Glucose 108 Medications Medications Current Medications Acetaminophen (Tylenol Tab) 650 mg Q6H PRN PO PAIN LEVEL 1-3 OR FEVER Last administered on 02/06/17 23:54; Admin Dose 650 MG; Start 01/22/17 at 16:00; Status Future Hold Docusate Sodium (Colace) 100 mg Q12H PRN PO CONSTIPATION; Start 01/22/17 at 16 :00 Magnesium Hydroxide (Milk Of Mag) 30 ml DAILY PRN PO CONSTIPATION Last administered on 01/31/17 07:38; Admin Dose 30 ML; Start 01/22/17 at 16:00 Bisacodyl (Dulcolax) 5 mg DAILY PRN PO CONSTIPATION Last administered on 04:05; Admin Dose 5 MG; Start 01/22/17 at 16:00 Sodium Biphosphate/ Sodium Phosphate (Fleet Enema) 133 ml DAILY PRN IN CONSTIPATION Last administered on 01/27/17 06:17; Admin Dose 133 ML; Start at 20:30 Morphine Sulfate 2 mg 2 mg Q2H PRN IV PAIN LEVEL 7-10 Last administered on 13:47; Admin Dose 2 MG; Start 01/28/17 at 14:00 Ondansetron HCl/ Dextrose (Zofran Inj/D5W) 54 ml @ 108 mls/hr Q6H PRN IV NAUSEA AND/OR VOMITING; Start 01/31/17 at 12:00 Hydromorphone HCl (Dilaudid) 1 mg Q2H PRN IV PAIN LEVEL 6-10 Last administered on 02/28/17 21:22; Admin Dose 1 MG; Start 02/02/17 at 11:30 Acetaminophen 650 mg 650 mg Q4H PRN GTB PAIN AND OR ELEVATED TEMP Last administered on 02/06/17 16:19; Admin Dose 650 MG; Start 02/04/17 at 08:30; Status Future Hold Fat Emulsion Intravenous 250 ml @ 10 mls/hr Q24H IV Last administered on 02/28 21:03; Admin Dose 10 MLS/HR; Start 02/05/17 at 20:00 Total Parenteral Nutrition (Tpn) 1,000 ml @ 40 mls/hr Q24H IV Last administered on 02/28/17 18:20; Admin Dose 40 MLS/HR; Start 02/05/17 at 20:00 Diagnostic Test (Pha) (Accu-Chek) 1 ea Q8 XX Last administered on 02/28/17 22 :05; Admin Dose 1 EA; Start 02/07/17 at 22:00 Ondansetron HCl (Zofran Inj) 4 mg Q6H PRN IV NAUSEA AND/OR VOMITING Last administered on 02/24/17 04:29; Admin Dose 4 MG; Start 02/13/17 at 14:30 Furosemide (Lasix) 40 mg DAILY@06 PO Last administered on 02/28/17 06:36; Admin Dose 40 MG; Start 02/19/17 at 11:30 Enoxaparin Sodium 65 mg 65 mg Q12H SC Last administered on 02/28/17 16:38; Admin Dose 65 MG; Start 02/21/17 at 16:00 Vancomycin HCl/ Dextrose/Water (Vancocin/D5W) 150 ml @ 75 mls/hr Q12H IVPB Last administered on 02/28/17 16:37; Admin Dose 75 MLS/HR; Start 02/23/17 at 16:00 Lactobacillus Acidophilus/ Rhamnosus (Culturelle) 1 cap BID PO Last administered on 02/28/17 21:03; Admin Dose 1 CAP; Start 02/24/17 at 21:00 Megestrol Acetate (Megace Susp) 400 mg BID PO Last administered on 02/28/17 21:03; Admin Dose 400 MG; Start 02/24/17 at 16:00 Pantoprazole (Protonix Tab) 40 mg DAILY@06 PO Last administered on 02/28/17 06:36; Admin Dose 40 MG; Start 02/26/17 at 06:00 RAUL EUCEDA MD Feb 28, 2017 22:44
[2017-03-01] MEDS ORDERED: HALOPERIDOL 5 MG INJ IM ONE
[2017-03-01] MEDS: LACTATED RINGER'S 1,000 ML IV SCH ×2 (00:21→23:00)
[2017-03-01] MEDS: VANCOMYCIN 750 MG in DEXTROSE 5% 150 ML IVPB SCH ×2 (04:35→16:01)
[2017-03-01] MEDS: ENOXAPARIN 80 MG/0.8 ML SYG SC SCH ×2 (04:36→16:02)
[2017-03-01 05:38] LABS: BASOPHIL # 0.1 10^3/ul (0.0-0.1); BASOPHILS % 0.3 % (0.0-2.0); EOSINOPHILS # 0.1 10^3/ul (0.0-0.5); EOSINOPHILS % 0.6 % (0.0-7.0); HEMATOCRIT 28.7 % (37.0-47.0); HEMOGLOBIN 9.2 g/dl (12.0-16.0); LYMPHOCYTES % 6.8 % (15.0-51.0); MEAN CORPUSCULAR HEMOGLOBIN 26.7 pg (29.0-33.0); MEAN CORPUSCULAR HGB CONC 32.1 g/dl (32.0-37.0); MEAN CORPUSCULAR VOLUME 83.4 fl (82.0-101.0); MEAN PLATELET VOLUME 12.3 fl (7.4-10.4); MONOCYTE # 1.3 10^3/ul (0.3-0.9); MONOCYTES % 8.9 % (0.0-11.0); NEUTROPHIL # 11.9 10^3/ul (1.6-7.5); NEUTROPHILS % 81.3 % (39.0-77.0); PLATELET COUNT 500 10^3/UL (140-415); RED BLOOD COUNT 3.44 10^6/ul (4.20-5.40); RED CELL DISTRIBUTION WIDTH 18.2 % (11.5-14.5); WHITE BLOOD COUNT 14.6 10^3/ul (4.8-10.8)
[2017-03-01] MEDS: ACCU-CHEK XX SCH ×3 (06:00→21:48)
[2017-03-01] MEDS: FUROSEMIDE 40 MG TAB PO SCH (06:07)
[2017-03-01] MEDS: PANTOPRAZOLE (EC) 40 MG TAB PO SCH (06:07)
[2017-03-01 06:10] LABS: CALCIUM 9.8 mg/dl (8.4-10.2); CREATININE 0.82 mg/dl (0.44-1.00); MAGNESIUM 1.7 mg/dl (1.7-2.5); PHOSPHORUS 5.3 mg/dl (2.5-4.9)
[2017-03-01 06:12] LABS: INR 1.08; PT RATIO 1.1
[2017-03-01 07:21] VITALS: BP 110/75; RESP 18
[2017-03-01] MEDS: MEGESTROL (40 MG/ML) 10ML CUP PO SCH ×2 (09:57→21:44)
[2017-03-01] MEDS: LACTOBACILLUS RHAMNOSUS CAP PO SCH ×2 (09:57→22:07)
--- NOTE | 2017-03-01 13:41 | PN ---
Date/Time of Note Date/Time of Note DATE: 03/01/17 TIME: 13:40 Assessment/Plan VTE Prophylaxis VTE Prophylaxis Intervention: LMWH Lines/Catheters IV Catheter Type (from Nrsg): Peripheral IV Urinary Cath still in place: Yes Reason Cath still needed: urinary retention Assessment/Plan Chief Complaint/Hosp Course Hospitalist team service coverage S: 02/23: Events noted 02/24: no events 02/25: delirium; non focal. follows commands. . son updated; refuses chemo. 02/26: Still in delirium but less agitated at the moment. No nausea vomiting. Poor appetite. 02/27: No dyspnea fever chills. Oriented to 2016. Not oriented to February. 02/28: Ambulate a little bit. 03/01: No distress mild abd pain. TPN dced. Not very hungry. But no diet ordered. O: Vss PE No pallor. Positive bitemporal wasting Reg Dimin but clear Bs dimin; diffuse tender nd no R/R/G No edema IVpicc c/d/i. Neuro: non focal A/P 1. Recurrent metastatic ovarian Ca. S/p ureteral dissection, omentectomy, splenectomy, cytoreduction 02/02. Stable treat pain. Guarded. Refused chemo. Recomm Palliative Care. 2. PE. IVC filter status; coumadin? 3. Delirium. Cont reorientation and reassurance. nonfocal. DC tethers [tpn/ ivfs/ sen] if possible. meds/mri reviewed. 4. Sirs 5. Stage IV ovarian Ca. Palliative care. 6. Past tobacco 7. Anemia 8. Obstructive uropathy status post double-J stent 9. Malnutrition; DC TPN? on megace. Advance diet if okay with Dr. Ramirez. 10. Hypothyroidism 11. Splenectomy status. vaccines? 12. FTT; snf vs Hospice. 10. Leukocytosis. Change Sen/ lines? DCed TPN. Problems: Exam/Review of Systems Vital Signs Vitals Vital Signs Date Time Temp Pulse Resp B/P Pulse Ox O2 Delivery O2 Flow Rate FiO2 03/01/17 07:21 98.4 110 18 110/75 99 02/28/17 02:31 Room Air Intake and Output 02/28/17 02/28/17 03/01/17 15:00 23:00 07:00 Intake Total 1140 ml 350 ml Output Total 1700 ml Balance -560 ml 350 ml Results Result Diagram: 03/01/17 0443 03/01/17 0443 Results 24 hrs Laboratory Tests Test 02/28/17 14:31 02/28/17 15:04 02/28/17 22:04 03/01/17 02:52 Bedside Glucose 103 108 92 Vancomycin Level Trough 13.4 Test 03/01/17 04:43 03/01/17 05:00 03/01/17 06:11 White Blood Count 14.6 H Red Blood Count 3.44 L Hemoglobin 9.2 L Hematocrit 28.7 L Mean Corpuscular Volume 83.4 Mean Corpuscular Hemoglobin 26.7 L Mean Corpuscular Hemoglobin Concent 32.1 Red Cell Distribution Width 18.2 H Platelet Count 500 H Mean Platelet Volume 12.3 H Neutrophils % 81.3 H Lymphocytes % 6.8 L Monocytes % 8.9 Eosinophils % 0.6 Basophils % 0.3 Nucleated Red Blood Cells % 0.0 Neutrophils # 11.9 H Lymphocytes # 1.0 Monocytes # 1.3 H Eosinophils # 0.1 Basophils # 0.1 Nucleated Red Blood Cells # 0.0 Sodium Level 138 Potassium Level 4.0 Chloride Level 100 Carbon Dioxide Level 26 Anion Gap 16 Blood Urea Nitrogen 20 Creatinine 0.82 Glucose Level 84 Calcium Level 9.8 Phosphorus Level 5.3 H Magnesium Level 1.7 Prothrombin Time 14.0 Prothrombin Time Ratio 1.1 INR International Normalized Ratio 1.08 Bedside Glucose 81 Medications Medications Current Medications Acetaminophen (Tylenol Tab) 650 mg Q6H PRN PO PAIN LEVEL 1-3 OR FEVER Last administered on 02/06/17 23:54; Admin Dose 650 MG; Start 01/22/17 at 16:00; Status Future Hold Docusate Sodium (Colace) 100 mg Q12H PRN PO CONSTIPATION; Start 01/22/17 at 16 :00 Magnesium Hydroxide (Milk Of Mag) 30 ml DAILY PRN PO CONSTIPATION Last administered on 01/31/17 07:38; Admin Dose 30 ML; Start 01/22/17 at 16:00 Bisacodyl (Dulcolax) 5 mg DAILY PRN PO CONSTIPATION Last administered on 04:05; Admin Dose 5 MG; Start 01/22/17 at 16:00 Sodium Biphosphate/ Sodium Phosphate (Fleet Enema) 133 ml DAILY PRN [place] CONSTIPATION Last administered on 01/27/17 06:17; Admin Dose 133 ML; Start at 20:30 Morphine Sulfate 2 mg 2 mg Q2H PRN IV PAIN LEVEL 7-10 Last administered on 13:47; Admin Dose 2 MG; Start 01/28/17 at 14:00 Ondansetron HCl/ Dextrose (Zofran Inj/D5W) 54 ml @ 108 mls/hr Q6H PRN IV NAUSEA AND/OR VOMITING; Start 01/31/17 at 12:00 Acetaminophen (Tylenol Liquid) 650 mg Q4H PRN GTB PAIN AND OR ELEVATED TEMP Last administered on 02/06/17 16:19; Admin Dose 650 MG; Start 02/04/17 at 08:30 ; Status Future Hold Diagnostic Test (Pha) (Accu-Chek) 1 ea Q8 XX Last administered on 02/28/17 22 :05; Admin Dose 1 EA; Start 02/07/17 at 22:00 Ondansetron HCl (Zofran Inj) 4 mg Q6H PRN IV NAUSEA AND/OR VOMITING Last administered on 02/24/17 04:29; Admin Dose 4 MG; Start 02/13/17 at 14:30 Furosemide (Lasix) 40 mg DAILY@06 PO Last administered on 03/01/17 06:07; Admin Dose 40 MG; Start 02/19/17 at 11:30 Enoxaparin Sodium 65 mg 65 mg Q12H SC Last administered on 03/01/17 04:36; Admin Dose 65 MG; Start 02/21/17 at 16:00 Vancomycin HCl/ Dextrose/Water (Vancocin/D5W) 150 ml @ 75 mls/hr Q12H IVPB Last administered on 03/01/17 04:35; Admin Dose 75 MLS/HR; Start 02/23/17 at 16:00 Lactobacillus Acidophilus/ Rhamnosus (Culturelle) 1 cap BID PO Last administered on 03/01/17 09:57; Admin Dose 1 CAP; Start 02/24/17 at 21:00 Megestrol Acetate (Megace Susp) 400 mg BID PO Last administered on 03/01/17 09:57; Admin Dose 400 MG; Start 02/24/17 at 16:00 Pantoprazole (Protonix Tab) 40 mg DAILY@06 PO Last administered on 03/01/17 06:07; Admin Dose 40 MG; Start 02/26/17 at 06:00 Hydromorphone HCl 0.5 mg 0.5 mg Q2H PRN IV PAIN LEVEL 6-10; Start 02/28/17 at 23:30 Lactated Ringer's (Lr) 1,000 ml @ 40 mls/hr Q24H IV Last administered on 03/01 00:21; Admin Dose 40 MLS/HR; Start 02/28/17 at 23:00 FRANKIE MENDOZA MD Mar 01, 2017 13:41
[2017-03-01 14:00] VITALS: BP 121/68; RESP 18
--- NOTE | 2017-03-01 18:04 | CONS ---
Date/Time of Note Date/Time of Note DATE: 03/01/17 TIME: 18:02 Assessment/Plan Assessment/Plan Chief Complaint/Hosp Course ID PROGRESS NOTE CURRENT ABX: DAY #12=> Vanco IV s/p Cancidas 24H INTERVAL SUMMARY * Clincally stable -- Awake, lethargic, resting comfortably, NAD, no fevers * CXR 02/27/17 IMPRESSION:1. Right IJ catheter removed. 2. Improved aeration of the left lung base. 3. Surgical drains in the abdomen. 4. Otherwise unremarkable chest radiograph. Physical Exam Physical Exam Constitutional: Awake, alert, responsive, VSS, NAD, feels good HEENT: At, NC, anicteric Neck: Trach midline, neck supple Respiratory: Clear anterior, diminished BLL Cardiovascular: NSR on tele, radial pulses 2+ bilaterally Gastrointestinal: Soft, BS + Extremities: Warm, no cyanosis, trace edema Neurological: No focal deficits ID ASSESSMENT 56 yo F admit with 1. s/p Recurrent Sepsis w/FEVER > 102 on 02/19 + leukocytosis => LINE sepsis, line removed => RESOLVING * WBC elevated ? = reactive? no fevers 2. Bacteremia with blood culture growing gram-positive cocci=> Line DC;d => Repeat BCx (-) * 02/19 -> BCx (+)Staph aureus, repeat BC x 02/20 (+)GPC -> TLC removed 3. Metastatic ovarian cancer, status post ureteral dissection, omentectomy with splenectomy and cytoreduction on 02/02/2017. * CAMRYN drains present 4. Status post alpha hemolytic strep urinary tract infection on admission-> * Urine Cx 02/04/17 (-) 6. Bilateral hydronephrosis, status post JJ stent insertion on 01/24/2017. 7. s/p Respiratory failure-> Extubated and stable on room air 8. Anemia. ( -)MRSA Nares ABX ALLERGIES: KNDA CURRENT ABX: DAY #12 => Vanco IV s/p Cancidas ID RECOMMENDATIONS 1. Continue Vanco IV to complete course for (+)BCx => Last day next week . Problems: Consultation Date/Type/Reason Admit Date/Time Jan 22, 2017 at 14:12 Initial Consult Date 02/03/17 Type of Consultation: ID Referring Provider: DAYANARA BROWN MD Exam/Review of Systems Vital Signs Vitals Vital Signs Date Time Temp Pulse Resp B/P Pulse Ox O2 Delivery O2 Flow Rate FiO2 03/01/17 14:00 98.4 101 18 121/68 99 02/28/17 02:31 Room Air Intake and Output 02/28/17 02/28/17 03/01/17 15:00 23:00 07:00 Intake Total 1140 ml 350 ml Output Total 1700 ml Balance -560 ml 350 ml Results Result Diagram: 03/01/17 0443 03/01/17 0443 Results 24 hrs Laboratory Tests Test 02/28/17 22:04 03/01/17 02:52 03/01/17 04:43 03/01/17 05:00 Bedside Glucose 108 92 White Blood Count 14.6 H Red Blood Count 3.44 L Hemoglobin 9.2 L Hematocrit 28.7 L Mean Corpuscular Volume 83.4 Mean Corpuscular Hemoglobin 26.7 L Mean Corpuscular Hemoglobin Concent 32.1 Red Cell Distribution Width 18.2 H Platelet Count 500 H Mean Platelet Volume 12.3 H Neutrophils % 81.3 H Lymphocytes % 6.8 L Monocytes % 8.9 Eosinophils % 0.6 Basophils % 0.3 Nucleated Red Blood Cells % 0.0 Neutrophils # 11.9 H Lymphocytes # 1.0 Monocytes # 1.3 H Eosinophils # 0.1 Basophils # 0.1 Nucleated Red Blood Cells # 0.0 Sodium Level 138 Potassium Level 4.0 Chloride Level 100 Carbon Dioxide Level 26 Anion Gap 16 Blood Urea Nitrogen 20 Creatinine 0.82 Glucose Level 84 Calcium Level 9.8 Phosphorus Level 5.3 H Magnesium Level 1.7 Prothrombin Time 14.0 Prothrombin Time Ratio 1.1 INR International Normalized Ratio 1.08 Test 03/01/17 06:11 03/01/17 14:10 Bedside Glucose 81 91 Medications Medications Current Medications Acetaminophen (Tylenol Tab) 650 mg Q6H PRN PO PAIN LEVEL 1-3 OR FEVER Last administered on 02/06/17 23:54; Admin Dose 650 MG; Start 01/22/17 at 16:00; Status Future Hold Docusate Sodium (Colace) 100 mg Q12H PRN PO CONSTIPATION; Start 01/22/17 at 16 :00 Magnesium Hydroxide (Milk Of Mag) 30 ml DAILY PRN PO CONSTIPATION Last administered on 01/31/17 07:38; Admin Dose 30 ML; Start 01/22/17 at 16:00 Bisacodyl (Dulcolax) 5 mg DAILY PRN PO CONSTIPATION Last administered on 04:05; Admin Dose 5 MG; Start 01/22/17 at 16:00 Sodium Biphosphate/ Sodium Phosphate (Fleet Enema) 133 ml DAILY PRN [place] CONSTIPATION Last administered on 01/27/17 06:17; Admin Dose 133 ML; Start at 20:30 Morphine Sulfate 2 mg 2 mg Q2H PRN IV PAIN LEVEL 7-10 Last administered on 13:47; Admin Dose 2 MG; Start 01/28/17 at 14:00 Ondansetron HCl/ Dextrose (Zofran Inj/D5W) 54 ml @ 108 mls/hr Q6H PRN IV NAUSEA AND/OR VOMITING; Start 01/31/17 at 12:00 Acetaminophen (Tylenol Liquid) 650 mg Q4H PRN GTB PAIN AND OR ELEVATED TEMP Last administered on 02/06/17 16:19; Admin Dose 650 MG; Start 02/04/17 at 08:30 ; Status Future Hold Diagnostic Test (Pha) (Accu-Chek) 1 ea Q8 XX Last administered on 02/28/17 22 :05; Admin Dose 1 EA; Start 02/07/17 at 22:00 Ondansetron HCl (Zofran Inj) 4 mg Q6H PRN IV NAUSEA AND/OR VOMITING Last administered on 02/24/17 04:29; Admin Dose 4 MG; Start 02/13/17 at 14:30 Furosemide (Lasix) 40 mg DAILY@06 PO Last administered on 03/01/17 06:07; Admin Dose 40 MG; Start 02/19/17 at 11:30 Enoxaparin Sodium 65 mg 65 mg Q12H SC Last administered on 03/01/17 16:02; Admin Dose 65 MG; Start 02/21/17 at 16:00 Vancomycin HCl/ Dextrose/Water (Vancocin/D5W) 150 ml @ 75 mls/hr Q12H IVPB Last administered on 03/01/17 16:01; Admin Dose 75 MLS/HR; Start 02/23/17 at 16:00 Lactobacillus Acidophilus/ Rhamnosus (Culturelle) 1 cap BID PO Last administered on 03/01/17 09:57; Admin Dose 1 CAP; Start 02/24/17 at 21:00 Megestrol Acetate (Megace Susp) 400 mg BID PO Last administered on 03/01/17 09:57; Admin Dose 400 MG; Start 02/24/17 at 16:00 Pantoprazole (Protonix Tab) 40 mg DAILY@06 PO Last administered on 03/01/17 06:07; Admin Dose 40 MG; Start 02/26/17 at 06:00 Hydromorphone HCl 0.5 mg 0.5 mg Q2H PRN IV PAIN LEVEL 6-10; Start 02/28/17 at 23:30 Lactated Ringer's (Lr) 1,000 ml @ 40 mls/hr Q24H IV Last administered on 03/01 00:21; Admin Dose 40 MLS/HR; Start 02/28/17 at 23:00 LINDA ESTES NP Mar 01, 2017 18:04
[2017-03-01 20:00] VITALS: BP 125/68; RESP 20
[2017-03-02] MEDS ORDERED: HALOPERIDOL 5 MG INJ IM ONE (00:30)
[2017-03-02] MEDS: ENOXAPARIN 80 MG/0.8 ML SYG SC SCH ×2 (03:31→16:50)
[2017-03-02 04:00] VITALS: BP 95/51; RESP 18
[2017-03-02] MEDS: VANCOMYCIN 750 MG in DEXTROSE 5% 150 ML IVPB SCH ×2 (04:33→16:49)
[2017-03-02] MEDS: PANTOPRAZOLE (EC) 40 MG TAB PO SCH (05:28)
[2017-03-02] MEDS: FUROSEMIDE 40 MG TAB PO SCH (05:28)
[2017-03-02] MEDS: ACCU-CHEK XX SCH (05:28)
[2017-03-02] MEDS: LACTATED RINGER'S 1,000 ML IV SCH (06:34)
[2017-03-02 08:28] VITALS: BP 125/84; PULSE 102; PULSE 110; RESP 20
[2017-03-02] MEDS: LACTOBACILLUS RHAMNOSUS CAP PO SCH ×2 (08:31→20:44)
[2017-03-02] MEDS: MEGESTROL (40 MG/ML) 10ML CUP PO SCH ×2 (08:32→20:44)
[2017-03-02] MEDS: HYDROmorphONE 0.5 MG/0.5 ML SYG IV PRN ×2 (08:36→20:44)
--- NOTE | 2017-03-02 09:56 | PN ---
Date/Time of Note Date/Time of Note DATE: 03/02/17 TIME: 09:37 Assessment/Plan VTE Prophylaxis VTE Prophylaxis Intervention: LMWH Lines/Catheters IV Catheter Type (from [facility]): Peripheral IV Urinary Cath still in place: Yes Reason Cath still needed: other (indicate) (defer to urology) Assessment/Plan Assessment/Plan 56-year-old female with known stage IV ovarian cancer admitted originally for malignant ascites now status post debulking surgery as well as placement of bilateral JJ stents secondary to severe hydronephrosis and hydroureter. Patient is also status post sepsis with bacteremia as well as pelvic abscess status post drainage. Continues on full dose anticoagulation for bilateral pulmonary emboli Currently, patient is now off TPN and has been started on a mechanical soft diet , nursing reports she is doing better with liquids, she is ambulance but still somewhat confused. She is requiring a sitter. Minimal drainage from abdominal drain per nursing report, will discuss with Dr. Ramirez re: possible removal Continue current supportive care Begin discharge planning with patient's family. The patient she lives alone, and due to confusion and poor oral intake, she may need short-term placement prior to returning home. Subjective 24 Hr Interval Summary Free Text/Dictation Patient states she is doing well, has no new complaints Exam/Review of Systems Vital Signs Vitals Vital Signs Date Time Temp Pulse Resp B/P Pulse Ox O2 Delivery O2 Flow Rate FiO2 03/02/17 08:28 98.1 110 20 125/84 100 Room Air Intake and Output 03/01/17 03/01/17 03/02/17 15:00 23:00 07:00 Intake Total 480 ml 590 ml 750 ml Output Total 450 ml 409 ml 505 ml Balance 30 ml 181 ml 245 ml Exam Constitutional: alert, frail, oriented, No distress Psych: other (blank affect) Head: normocephalic Eyes: PERRL ENMT: other (some whitish tongue coating) Respiratory: clear to auscultation, No labored breathing Cardiovascular: regular rate and rhythm, No murmurs/extra sounds Gastrointestinal: non-tender, soft, surgical scars (healing well, drains noted X3) Genitourinary - Female: other (folaey to bedside drainage) Extremities: No edema Neurological: confused (intermittently per report) Results Result Diagram: 03/01/1744203/01/17442 Results 24 hrs Laboratory Tests Test 03/01/17 14:10 03/01/17 21:44 03/02/17 05:30 Bedside Glucose 91 91 84 Medications Medications Current Medications Acetaminophen (Tylenol Tab) 650 mg Q6H PRN PO PAIN LEVEL 1-3 OR FEVER Last administered on 02/06/17 23:54; Admin Dose 650 MG; Start 01/22/17 at 16:00; Status Future Hold Docusate Sodium (Colace) 100 mg Q12H PRN PO CONSTIPATION; Start 01/22/17 at 16 :00 Magnesium Hydroxide (Milk Of Mag) 30 ml DAILY PRN PO CONSTIPATION Last administered on 01/31/17 07:38; Admin Dose 30 ML; Start 01/22/17 at 16:00 Bisacodyl (Dulcolax) 5 mg DAILY PRN PO CONSTIPATION Last administered on 04:05; Admin Dose 5 MG; Start 01/22/17 at 16:00 Sodium Biphosphate/ Sodium Phosphate (Fleet Enema) 133 ml DAILY PRN [place] CONSTIPATION Last administered on 01/27/17 06:17; Admin Dose 133 ML; Start at 20:30 Morphine Sulfate 2 mg 2 mg Q2H PRN IV PAIN LEVEL 7-10 Last administered on 13:47; Admin Dose 2 MG; Start 01/28/17 at 14:00 Ondansetron HCl/ Dextrose (Zofran Inj/D5W) 54 ml @ 108 mls/hr Q6H PRN IV NAUSEA AND/OR VOMITING; Start 01/31/17 at 12:00 Acetaminophen (Tylenol Liquid) 650 mg Q4H PRN GTB PAIN AND OR ELEVATED TEMP Last administered on 02/06/17 16:19; Admin Dose 650 MG; Start 02/04/17 at 08:30 ; Status Future Hold Diagnostic Test (Pha) (Accu-Chek) 1 ea Q8 XX Last administered on 02/28/17 22 :05; Admin Dose 1 EA; Start 02/07/17 at 22:00 Ondansetron HCl (Zofran Inj) 4 mg Q6H PRN IV NAUSEA AND/OR VOMITING Last administered on 02/24/17 04:29; Admin Dose 4 MG; Start 02/13/17 at 14:30 Furosemide (Lasix) 40 mg DAILY@06 PO Last administered on 03/02/17 05:28; Admin Dose 40 MG; Start 02/19/17 at 11:30 Enoxaparin Sodium 65 mg 65 mg Q12H SC Last administered on 03/02/17 03:31; Admin Dose 65 MG; Start 02/21/17 at 16:00 Vancomycin HCl/ Dextrose/Water (Vancocin/D5W) 150 ml @ 75 mls/hr Q12H IVPB Last administered on 03/02/17 04:33; Admin Dose 75 MLS/HR; Start 02/23/17 at 16:00 Lactobacillus Acidophilus/ Rhamnosus (Culturelle) 1 cap BID PO Last administered on 03/02/17 08:31; Admin Dose 1 CAP; Start 02/24/17 at 21:00 Megestrol Acetate (Megace Susp) 400 mg BID PO Last administered on 03/02/17 08:32; Admin Dose 400 MG; Start 02/24/17 at 16:00 Pantoprazole (Protonix Tab) 40 mg DAILY@06 PO Last administered on 03/02/17 05:28; Admin Dose 40 MG; Start 02/26/17 at 06:00 Hydromorphone HCl 0.5 mg 0.5 mg Q2H PRN IV PAIN LEVEL 6-10 Last administered on 03/02/17 08:36; Admin Dose 0.5 MG; Start 02/28/17 at 23:30 Lactated Ringer's (Lr) 1,000 ml @ 40 mls/hr Q24H IV Last administered on 03/02 06:34; Admin Dose 40 MLS/HR; Start 02/28/17 at 23:00 LILIANA HOUSTON Mar 02, 2017 09:51
[2017-03-02 12:13] LABS: BASOPHILS % 0.3 % (0.0-2.0); EOSINOPHILS # 0.1 10^3/ul (0.0-0.5); EOSINOPHILS % 0.4 % (0.0-7.0); HEMATOCRIT 31.8 % (37.0-47.0); LYMPHOCYTES % 7.7 % (15.0-51.0); MEAN CORPUSCULAR HEMOGLOBIN 26.6 pg (29.0-33.0); MEAN CORPUSCULAR HGB CONC 31.4 g/dl (32.0-37.0); MEAN CORPUSCULAR VOLUME 84.6 fl (82.0-101.0); MEAN PLATELET VOLUME 11.9 fl (7.4-10.4); MONOCYTE # 1.2 10^3/ul (0.3-0.9); MONOCYTES % 8.7 % (0.0-11.0); NEUTROPHIL # 10.7 10^3/ul (1.6-7.5); NEUTROPHILS % 80.8 % (39.0-77.0); PLATELET COUNT 564 10^3/UL (140-415); RED BLOOD COUNT 3.76 10^6/ul (4.20-5.40); RED CELL DISTRIBUTION WIDTH 17.9 % (11.5-14.5); WHITE BLOOD COUNT 13.2 10^3/ul (4.8-10.8)
[2017-03-02 12:46] LABS: CALCIUM 9.5 mg/dl (8.4-10.2); CREATININE 0.79 mg/dl (0.44-1.00); POTASSIUM 3.6 mmol/L (3.5-5.1)
--- NOTE | 2017-03-02 13:18 | CONS ---
Date/Time of Note Date/Time of Note DATE: 03/02/17 TIME: 13:18 Assessment/Plan Assessment/Plan Chief Complaint/Hosp Course ADVANCED OVARIAN CANCER WITH MALIGNANT ASCITES AND PERITONEAL carcinomatosis- Stage IIIc - IV ovarian cancer Large conglomerate pelvic mass inseparable from the uterus, sigmoid colon and rectum containing clumps of calcification suspicious for calcified fibroids and containing cystic areas. Large amount of free intraperitoneal fluid measuring 25 HU with caking of the omentum compatible with carcinomatosis. Centralization of bowel without evidence of bowel obstruction. Moderately severe right hydronephrosis and hydroureter to the level of the pelvic mass. There is moderate left pelvocaliectasis without ureteral dilatation. The bladder is quite distended with urine. POST cystoscopy and insertion of bilateral JJ stents. PER DR ABRAMS-If she gets better and respond to treatment then later on in the future she will need the stents removed and may be replaced CT CHEST - EDOUARD, EXCEPT SMALL L PLEURAL EFFUSION CA 125- 337 POST debulking surgery PATH- [id number] High grade serous carcinoma. D/W SON- HE IS REFUSING CHEMO POST IVC filter UNABLE TO PROCEED WITH CHEMO 2 TO SEPSIS/BACTEREMIA AND CONFUSION/ AMS HOPEFULLY SOON ANEMIA, MICROCYTOSIS COMPLEX ANEMIA W-UP= + COMPONENT ACD DROP H/H POSTOP SERIAL H/H PRBC NEEDED PER STANDING ORDERS D/W RN LEUKOCYTOSIS REACTIVE, PARTIALLY 2 TO Splenectomy, partially 2 to infection CONFUSION NEURO F-UP MRI BRAIN- NO METS Recurrent Sepsis w/FEVER > 102 on 02/19 + leukocytosis => LINE sepsis, line removed * s/p Septic shock with fevers > 102.+ on admission, leukocytosis Bacteremia with blood culture growing gram-positive cocci=> Line DC;d * 02/19 -> BCx (+)Staph aureus, repeat BC x 02/20 (+)GPC -> TLC removed PELVIC ABSCESS- POST DRAINAGE malignant ascites sp para 10.19. hydro AUR from ascites, sp ureteral stenting. ILEUS NG TPN Problems: Consultation Date/Type/Reason Admit Date/Time Jan 22, 2017 at 14:12 Initial Consult Date 01/27/17 Type of Consultation: [facility] Referring Provider: DAYANARA BROWN MD 24 HR Interval Summary Free Text/Dictation all noted confused Exam/Review of Systems Vital Signs Vitals Vital Signs Date Time Temp Pulse Resp B/P Pulse Ox O2 Delivery O2 Flow Rate FiO2 03/02/17 08:28 98.1 110 20 125/84 100 Room Air Intake and Output 03/01/17 03/01/17 03/02/17 15:00 23:00 07:00 Intake Total 480 ml 590 ml 750 ml Output Total 450 ml 409 ml 505 ml Balance 30 ml 181 ml 245 ml Exam GENERAL: Chronically ill-appearing lady, CONFUSED, NOT IN PAIN VITAL SIGNS: per chart NECK: Supple. No JVD or lymphadenopathy. CARDIAC EXAM: S1, S2. No added sounds or murmurs. CHEST: Bilateral rales. ABDOMEN: Soft, nontender. No guarding or rebound. EXTREMITIES: No cyanosis, clubbing or edema. NEUROLOGIC: Generalized weakness. Results Result Diagram: 03/02/17 1154 03/02/17 1154 Results 24 hrs Laboratory Tests Test 03/01/17 14:10 03/01/17 21:44 03/02/17 05:30 03/02/17 11:54 Bedside Glucose 91 91 84 White Blood Count 13.2 H Red Blood Count 3.76 L Hemoglobin 10.0 L Hematocrit 31.8 L Mean Corpuscular Volume 84.6 Mean Corpuscular Hemoglobin 26.6 L Mean Corpuscular Hemoglobin Concent 31.4 L Red Cell Distribution Width 17.9 H Platelet Count 564 H Mean Platelet Volume 11.9 H Neutrophils % 80.8 H Lymphocytes % 7.7 L Monocytes % 8.7 Eosinophils % 0.4 Basophils % 0.3 Nucleated Red Blood Cells % 0.0 Neutrophils # 10.7 H Lymphocytes # 1.0 Monocytes # 1.2 H Eosinophils # 0.1 Basophils # 0.0 Nucleated Red Blood Cells # 0.0 Sodium Level 136 Potassium Level 3.6 Chloride Level 96 L Carbon Dioxide Level 27 Anion Gap 17 H Blood Urea Nitrogen 17 Creatinine 0.79 Glucose Level 114 Calcium Level 9.5 Medications Medications Current Medications Acetaminophen (Tylenol Tab) 650 mg Q6H PRN PO PAIN LEVEL 1-3 OR FEVER Last administered on 02/06/17 23:54; Admin Dose 650 MG; Start 01/22/17 at 16:00; Status Future Hold Docusate Sodium (Colace) 100 mg Q12H PRN PO CONSTIPATION; Start 01/22/17 at 16 :00 Magnesium Hydroxide (Milk Of Mag) 30 ml DAILY PRN PO CONSTIPATION Last administered on 01/31/17 07:38; Admin Dose 30 ML; Start 01/22/17 at 16:00 Bisacodyl (Dulcolax) 5 mg DAILY PRN PO CONSTIPATION Last administered on 04:05; Admin Dose 5 MG; Start 01/22/17 at 16:00 Sodium Biphosphate/ Sodium Phosphate (Fleet Enema) 133 ml DAILY PRN [place] CONSTIPATION Last administered on 01/27/17 06:17; Admin Dose 133 ML; Start at 20:30 Morphine Sulfate 2 mg 2 mg Q2H PRN IV PAIN LEVEL 7-10 Last administered on 13:47; Admin Dose 2 MG; Start 01/28/17 at 14:00 Ondansetron HCl/ Dextrose (Zofran Inj/D5W) 54 ml @ 108 mls/hr Q6H PRN IV NAUSEA AND/OR VOMITING; Start 01/31/17 at 12:00 Acetaminophen (Tylenol Liquid) 650 mg Q4H PRN GTB PAIN AND OR ELEVATED TEMP Last administered on 02/06/17 16:19; Admin Dose 650 MG; Start 02/04/17 at 08:30 ; Status Future Hold Ondansetron HCl (Zofran Inj) 4 mg Q6H PRN IV NAUSEA AND/OR VOMITING Last administered on 02/24/17 04:29; Admin Dose 4 MG; Start 02/13/17 at 14:30 Furosemide (Lasix) 40 mg DAILY@06 PO Last administered on 03/02/17 05:28; Admin Dose 40 MG; Start 02/19/17 at 11:30 Enoxaparin Sodium 65 mg 65 mg Q12H SC Last administered on 03/02/17 03:31; Admin Dose 65 MG; Start 02/21/17 at 16:00 Vancomycin HCl/ Dextrose/Water (Vancocin/D5W) 150 ml @ 75 mls/hr Q12H IVPB Last administered on 03/02/17 04:33; Admin Dose 75 MLS/HR; Start 02/23/17 at 16:00 Lactobacillus Acidophilus/ Rhamnosus (Culturelle) 1 cap BID PO Last administered on 03/02/17 08:31; Admin Dose 1 CAP; Start 02/24/17 at 21:00 Megestrol Acetate (Megace Susp) 400 mg BID PO Last administered on 03/02/17 08:32; Admin Dose 400 MG; Start 02/24/17 at 16:00 Pantoprazole (Protonix Tab) 40 mg DAILY@06 PO Last administered on 03/02/17 05:28; Admin Dose 40 MG; Start 02/26/17 at 06:00 Hydromorphone HCl 0.5 mg 0.5 mg Q2H PRN IV PAIN LEVEL 6-10 Last administered on 03/02/17 08:36; Admin Dose 0.5 MG; Start 02/28/17 at 23:30 Lactated Ringer's (Lr) 1,000 ml @ 40 mls/hr Q24H IV Last administered on 03/02 06:34; Admin Dose 40 MLS/HR; Start 02/28/17 at 23:00 RAMIREZ YBARRA MD Mar 02, 2017 13:18
--- NOTE | 2017-03-02 13:27 | CONS ---
Date/Time of Note Date/Time of Note DATE: 03/02/17 TIME: 13:25 Assessment/Plan Assessment/Plan Chief Complaint/Hosp Course SUBJECTIVE: No acute events overnight. The patient is alert, looks comfortable , no fevers. INDWELLINGS: The patient has intra-abdominal drainage catheter, Cullen and peripheral IV. ANTIMICROBIALS: Vancomycin. PHYSICAL EXAMINATION: GENERAL: This is a cachectic, wasted, well-developed, middle-aged woman who is in no distress. HEENT: Head atraumatic, normocephalic. Sclerae anicteric. Buccal mucosa dry. NECK: Supple. CHEST: Rise symmetrical. Breath sounds diminished to bases. HEART: S1, S2. ABDOMEN: Soft, bowel tones present. EXTREMITIES: No cyanosis. ASSESSMENT: 1. Systemic inflammatory response syndrome 2. Coagulase-negative staph bacteremia, status post triple lumen catheter discontinued, repeat blood cultures negative. 3. Metastatic ovarian cancer status post ureteral dissection, appendectomy with splenectomy and cytoreduction on 02/02/2017. 4. Status post alpha hemolytic strep urinary tract infection. 5. Bilateral hydronephrosis, status post JJ stent insertion on 01/30/2017. 6. Anemia. 7. Status post respiratory failure. 8. Status post CT-guided drainage of intra-abdominal abscess on 02/10/2017. PLAN: The patient remains stable. Continue present care. Continue vancomycin for 5 more days. DW staff/pt Problems: Consultation Date/Type/Reason Admit Date/Time Jan 22, 2017 at 14:12 Initial Consult Date 02/03/17 Type of Consultation: id Referring Provider: DAYANARA BROWN MD Exam/Review of Systems Vital Signs Vitals Vital Signs Date Time Temp Pulse Resp B/P Pulse Ox O2 Delivery O2 Flow Rate FiO2 03/02/17 08:28 98.1 110 20 125/84 100 Room Air Intake and Output 03/01/17 03/01/17 03/02/17 15:00 23:00 07:00 Intake Total 480 ml 590 ml 750 ml Output Total 450 ml 409 ml 505 ml Balance 30 ml 181 ml 245 ml Results Result Diagram: 03/02/17 1154 03/02/17 1154 Results 24 hrs Laboratory Tests Test 03/01/17 14:10 03/01/17 21:44 03/02/17 05:30 03/02/17 11:54 Bedside Glucose 91 91 84 White Blood Count 13.2 H Red Blood Count 3.76 L Hemoglobin 10.0 L Hematocrit 31.8 L Mean Corpuscular Volume 84.6 Mean Corpuscular Hemoglobin 26.6 L Mean Corpuscular Hemoglobin Concent 31.4 L Red Cell Distribution Width 17.9 H Platelet Count 564 H Mean Platelet Volume 11.9 H Neutrophils % 80.8 H Lymphocytes % 7.7 L Monocytes % 8.7 Eosinophils % 0.4 Basophils % 0.3 Nucleated Red Blood Cells % 0.0 Neutrophils # 10.7 H Lymphocytes # 1.0 Monocytes # 1.2 H Eosinophils # 0.1 Basophils # 0.0 Nucleated Red Blood Cells # 0.0 Sodium Level 136 Potassium Level 3.6 Chloride Level 96 L Carbon Dioxide Level 27 Anion Gap 17 H Blood Urea Nitrogen 17 Creatinine 0.79 Glucose Level 114 Calcium Level 9.5 Medications Medications Current Medications Acetaminophen (Tylenol Tab) 650 mg Q6H PRN PO PAIN LEVEL 1-3 OR FEVER Last administered on 02/06/17 23:54; Admin Dose 650 MG; Start 01/22/17 at 16:00; Status Future Hold Docusate Sodium (Colace) 100 mg Q12H PRN PO CONSTIPATION; Start 01/22/17 at 16 :00 Magnesium Hydroxide (Milk Of Mag) 30 ml DAILY PRN PO CONSTIPATION Last administered on 01/31/17 07:38; Admin Dose 30 ML; Start 01/22/17 at 16:00 Bisacodyl (Dulcolax) 5 mg DAILY PRN PO CONSTIPATION Last administered on 04:05; Admin Dose 5 MG; Start 01/22/17 at 16:00 Sodium Biphosphate/ Sodium Phosphate (Fleet Enema) 133 ml DAILY PRN [place] CONSTIPATION Last administered on 01/27/17 06:17; Admin Dose 133 ML; Start at 20:30 Morphine Sulfate 2 mg 2 mg Q2H PRN IV PAIN LEVEL 7-10 Last administered on 13:47; Admin Dose 2 MG; Start 01/28/17 at 14:00 Ondansetron HCl/ Dextrose (Zofran Inj/D5W) 54 ml @ 108 mls/hr Q6H PRN IV NAUSEA AND/OR VOMITING; Start 01/31/17 at 12:00 Acetaminophen (Tylenol Liquid) 650 mg Q4H PRN GTB PAIN AND OR ELEVATED TEMP Last administered on 02/06/17 16:19; Admin Dose 650 MG; Start 02/04/17 at 08:30 ; Status Future Hold Ondansetron HCl (Zofran Inj) 4 mg Q6H PRN IV NAUSEA AND/OR VOMITING Last administered on 02/24/17 04:29; Admin Dose 4 MG; Start 02/13/17 at 14:30 Furosemide (Lasix) 40 mg DAILY@06 PO Last administered on 03/02/17 05:28; Admin Dose 40 MG; Start 02/19/17 at 11:30 Enoxaparin Sodium 65 mg 65 mg Q12H SC Last administered on 03/02/17 03:31; Admin Dose 65 MG; Start 02/21/17 at 16:00 Vancomycin HCl/ Dextrose/Water (Vancocin/D5W) 150 ml @ 75 mls/hr Q12H IVPB Last administered on 03/02/17 04:33; Admin Dose 75 MLS/HR; Start 02/23/17 at 16:00 Lactobacillus Acidophilus/ Rhamnosus (Culturelle) 1 cap BID PO Last administered on 03/02/17 08:31; Admin Dose 1 CAP; Start 02/24/17 at 21:00 Megestrol Acetate (Megace Susp) 400 mg BID PO Last administered on 03/02/17 08:32; Admin Dose 400 MG; Start 02/24/17 at 16:00 Pantoprazole (Protonix Tab) 40 mg DAILY@06 PO Last administered on 03/02/17 05:28; Admin Dose 40 MG; Start 02/26/17 at 06:00 Hydromorphone HCl 0.5 mg 0.5 mg Q2H PRN IV PAIN LEVEL 6-10 Last administered on 03/02/17 08:36; Admin Dose 0.5 MG; Start 02/28/17 at 23:30 Lactated Ringer's (Lr) 1,000 ml @ 40 mls/hr Q24H IV Last administered on 03/02 06:34; Admin Dose 40 MLS/HR; Start 02/28/17 at 23:00 CARLOS SOLIZ NP Mar 02, 2017 13:27
[2017-03-02 14:00] VITALS: BP 132/72; RESP 20
[2017-03-02 20:00] VITALS: BP 128/85; RESP 18
[2017-03-03 02:00] VITALS: BP 120/87; RESP 18
[2017-03-03] MEDS ORDERED: LORAZEPAM 2 MG INJ IV ONE (02:00)
[2017-03-03] MEDS: VANCOMYCIN 750 MG in DEXTROSE 5% 150 ML IVPB SCH ×2 (05:33→16:09)
[2017-03-03] MEDS: ENOXAPARIN 80 MG/0.8 ML SYG SC SCH ×2 (05:35→16:10)
[2017-03-03 08:00] VITALS: BP 121/79; RESP 19
[2017-03-03] MEDS: PANTOPRAZOLE (EC) 40 MG TAB PO SCH (09:31)
[2017-03-03] MEDS: FUROSEMIDE 40 MG TAB PO SCH (09:31)
[2017-03-03] MEDS: MEGESTROL (40 MG/ML) 10ML CUP PO SCH ×2 (09:32→22:15)
[2017-03-03] MEDS: LACTOBACILLUS RHAMNOSUS CAP PO SCH ×2 (09:32→22:19)
--- NOTE | 2017-03-03 10:58 | PN ---
Date/Time of Note Date/Time of Note DATE: 03/03/17 TIME: 10:40 Assessment/Plan VTE Prophylaxis VTE Prophylaxis Intervention: LMWH Lines/Catheters IV Catheter Type (from [facility]): Peripheral IV Urinary Cath still in place: Yes Reason Cath still needed: other (indicate) Assessment/Plan Assessment/Plan 56-year-old female with known stage IV ovarian cancer admitted originally for malignant ascites now status post debulking surgery as well as placement of bilateral JJ stents secondary to severe hydronephrosis and hydroureter. Patient is also status post sepsis with bacteremia as well as pelvic abscess status post drainage. Continues on full dose anticoagulation for bilateral pulmonary emboli Currently, patient is now off TPN and has been started on a mechanical soft diet , nursing reports she is doing better with liquids, she is ambulance but still somewhat confused. She is requiring a sitter. PLAN: Spoke with son in detail. He continues to refuse chemotherapy for his mother. He tells me the goals of discharge are for him to take the patient home. He tells me he can afford to have somebody with her 24 hours a day 7 days a week. Has had this point the plan is to try and discontinue all drains as well as a Sen catheter, and also start working on weaning the bedside sitter. Was able to wean the sitter patient may possibly be discharged home to have family care. Continue current supportive care Subjective 24 Hr Interval Summary Free Text/Dictation Patient is alert today, seems brighter than yesterday, son at bedside, seems to be doing better. Exam/Review of Systems Vital Signs Vitals Vital Signs Date Time Temp Pulse Resp B/P Pulse Ox O2 Delivery O2 Flow Rate FiO2 03/03/17 08:00 98.2 101 19 121/79 97 03/02/17 08:28 Room Air Intake and Output 03/02/17 03/02/17 03/03/17 14:59 22:59 06:59 Intake Total 1290 ml 200 ml Output Total 810 ml 412 ml Balance 480 ml -212 ml Exam Constitutional: alert, frail, oriented, No distress Psych: other (blank affect) Head: normocephalic Eyes: PERRL ENMT: other (some whitish tongue coating) Respiratory: clear to auscultation, No labored breathing Cardiovascular: regular rate and rhythm, No murmurs/extra sounds Gastrointestinal: non-tender, soft, surgical scars (healing well, drains noted ) Genitourinary - Female: other (sen to bedside drainage) Extremities: No edema Neurological: alert and oriented at this time but still prone to spontaneously getting out of bed while unstable. Results Result Diagram: 03/02/17 1154 03/02/17 1154 Results 24 hrs Laboratory Tests Test 03/02/17 11:54 White Blood Count 13.2 H Red Blood Count 3.76 L Hemoglobin 10.0 L Hematocrit 31.8 L Mean Corpuscular Volume 84.6 Mean Corpuscular Hemoglobin 26.6 L Mean Corpuscular Hemoglobin Concent 31.4 L Red Cell Distribution Width 17.9 H Platelet Count 564 H Mean Platelet Volume 11.9 H Neutrophils % 80.8 H Lymphocytes % 7.7 L Monocytes % 8.7 Eosinophils % 0.4 Basophils % 0.3 Nucleated Red Blood Cells % 0.0 Neutrophils # 10.7 H Lymphocytes # 1.0 Monocytes # 1.2 H Eosinophils # 0.1 Basophils # 0.0 Nucleated Red Blood Cells # 0.0 Sodium Level 136 Potassium Level 3.6 Chloride Level 96 L Carbon Dioxide Level 27 Anion Gap 17 H Blood Urea Nitrogen 17 Creatinine 0.79 Glucose Level 114 Calcium Level 9.5 Medications Medications Current Medications Acetaminophen (Tylenol Tab) 650 mg Q6H PRN PO PAIN LEVEL 1-3 OR FEVER Last administered on 02/06/17 23:54; Admin Dose 650 MG; Start 01/22/17 at 16:00; Status Future Hold Docusate Sodium (Colace) 100 mg Q12H PRN PO CONSTIPATION; Start 01/22/17 at 16 :00 Magnesium Hydroxide (Milk Of Mag) 30 ml DAILY PRN PO CONSTIPATION Last administered on 01/31/17 07:38; Admin Dose 30 ML; Start 01/22/17 at 16:00 Bisacodyl (Dulcolax) 5 mg DAILY PRN PO CONSTIPATION Last administered on 04:05; Admin Dose 5 MG; Start 01/22/17 at 16:00 Sodium Biphosphate/ Sodium Phosphate (Fleet Enema) 133 ml DAILY PRN [place] CONSTIPATION Last administered on 01/27/17 06:17; Admin Dose 133 ML; Start at 20:30 Morphine Sulfate 2 mg 2 mg Q2H PRN IV PAIN LEVEL 7-10 Last administered on 13:47; Admin Dose 2 MG; Start 01/28/17 at 14:00 Ondansetron HCl/ Dextrose (Zofran Inj/D5W) 54 ml @ 108 mls/hr Q6H PRN IV NAUSEA AND/OR VOMITING; Start 01/31/17 at 12:00 Acetaminophen (Tylenol Liquid) 650 mg Q4H PRN GTB PAIN AND OR ELEVATED TEMP Last administered on 02/06/17 16:19; Admin Dose 650 MG; Start 02/04/17 at 08:30 ; Status Future Hold Ondansetron HCl (Zofran Inj) 4 mg Q6H PRN IV NAUSEA AND/OR VOMITING Last administered on 02/24/17 04:29; Admin Dose 4 MG; Start 02/13/17 at 14:30 Furosemide (Lasix) 40 mg DAILY@06 PO Last administered on 03/03/17 09:31; Admin Dose 40 MG; Start 02/19/17 at 11:30 Enoxaparin Sodium 65 mg 65 mg Q12H SC Last administered on 03/03/17 05:35; Admin Dose 65 MG; Start 02/21/17 at 16:00 Vancomycin HCl/ Dextrose/Water (Vancocin/D5W) 150 ml @ 75 mls/hr Q12H IVPB Last administered on 03/03/17 05:33; Admin Dose 75 MLS/HR; Start 02/23/17 at 16:00 Lactobacillus Acidophilus/ Rhamnosus (Culturelle) 1 cap BID PO Last administered on 03/03/17 09:32; Admin Dose 1 CAP; Start 02/24/17 at 21:00 Megestrol Acetate (Megace Susp) 400 mg BID PO Last administered on 03/03/17 09:32; Admin Dose 400 MG; Start 02/24/17 at 16:00 Pantoprazole (Protonix Tab) 40 mg DAILY@06 PO Last administered on 03/03/17 09:31; Admin Dose 40 MG; Start 02/26/17 at 06:00 Hydromorphone HCl 0.5 mg 0.5 mg Q2H PRN IV PAIN LEVEL 6-10 Last administered on 03/02/17 20:44; Admin Dose 0.5 MG; Start 02/28/17 at 23:30 Lactated Ringer's (Lr) 1,000 ml @ 40 mls/hr Q24H IV Last administered on 03/02t 06:34; Admin Dose 40 MLS/HR; Start 02/28/17 at 23:00 LILIANA HOUSTON Mar 03, 2017 10:57
--- NOTE | 2017-03-03 15:14 | CONS ---
Date/Time of Note Date/Time of Note DATE: 03/03/17 TIME: 15:13 Assessment/Plan Assessment/Plan Chief Complaint/Hosp Course SUBJECTIVE: No acute events overnight. The patient is alert, denies pain, looks comfortable, no fevers. INDWELLINGS: The patient has intra-abdominal drainage catheter, Cullen and peripheral IV. ANTIMICROBIALS: Vancomycin. PHYSICAL EXAMINATION: GENERAL: This is a cachectic, wasted, well-developed, middle-aged woman who is in no distress. HEENT: Head atraumatic, normocephalic. Sclerae anicteric. Buccal mucosa dry. NECK: Supple. CHEST: Rise symmetrical. Breath sounds diminished to bases. HEART: S1, S2. ABDOMEN: Soft, bowel tones present. EXTREMITIES: No cyanosis. ASSESSMENT: 1. Systemic inflammatory response syndrome 2. Coagulase-negative staph bacteremia, status post triple lumen catheter discontinued, repeat blood cultures negative. 3. Metastatic ovarian cancer status post ureteral dissection, appendectomy with splenectomy and cytoreduction on 02/02/2017. 4. Status post alpha hemolytic strep urinary tract infection. 5. Bilateral hydronephrosis, status post JJ stent insertion on 01/30/2017. 6. Anemia. 7. Status post respiratory failure. 8. Status post CT-guided drainage of intra-abdominal abscess on 02/10/2017. PLAN: The patient remains stable. Continue present care. Continue vancomycin for 4 more days. [employer]/oncology rec-s staff/pt Problems: Consultation Date/Type/Reason Admit Date/Time Jan 22, 2017 at 14:12 Initial Consult Date 02/03/17 Type of Consultation: id Referring Provider: DAYANARA BROWN MD Exam/Review of Systems Vital Signs Vitals Vital Signs Date Time Temp Pulse Resp B/P Pulse Ox O2 Delivery O2 Flow Rate FiO2 03/03/17 08:00 98.2 101 19 121/79 97 03/02/17 08:28 Room Air Intake and Output 03/02/17 03/02/17 03/03/17 15:00 23:00 07:00 Intake Total 1290 ml 200 ml Output Total 810 ml 412 ml Balance 480 ml -212 ml Results Result Diagram: 03/02/17 1154 03/02/17 1154 Medications Medications Current Medications Acetaminophen (Tylenol Tab) 650 mg Q6H PRN PO PAIN LEVEL 1-3 OR FEVER Last administered on 02/06/17 23:54; Admin Dose 650 MG; Start 01/22/17 at 16:00; Status Future Hold Docusate Sodium (Colace) 100 mg Q12H PRN PO CONSTIPATION; Start 01/22/17 at 16 :00 Magnesium Hydroxide (Milk Of Mag) 30 ml DAILY PRN PO CONSTIPATION Last administered on 01/31/17 07:38; Admin Dose 30 ML; Start 01/22/17 at 16:00 Bisacodyl (Dulcolax) 5 mg DAILY PRN PO CONSTIPATION Last administered on 04:05; Admin Dose 5 MG; Start 01/22/17 at 16:00 Sodium Biphosphate/ Sodium Phosphate (Fleet Enema) 133 ml DAILY PRN [place] CONSTIPATION Last administered on 01/27/17 06:17; Admin Dose 133 ML; Start at 20:30 Morphine Sulfate 2 mg 2 mg Q2H PRN IV PAIN LEVEL 7-10 Last administered on 13:47; Admin Dose 2 MG; Start 01/28/17 at 14:00 Ondansetron HCl/ Dextrose (Zofran Inj/D5W) 54 ml @ 108 mls/hr Q6H PRN IV NAUSEA AND/OR VOMITING; Start 01/31/17 at 12:00 Acetaminophen (Tylenol Liquid) 650 mg Q4H PRN GTB PAIN AND OR ELEVATED TEMP Last administered on 02/06/17 16:19; Admin Dose 650 MG; Start 02/04/17 at 08:30 ; Status Future Hold Ondansetron HCl (Zofran Inj) 4 mg Q6H PRN IV NAUSEA AND/OR VOMITING Last administered on 02/24/17 04:29; Admin Dose 4 MG; Start 02/13/17 at 14:30 Furosemide (Lasix) 40 mg DAILY@06 PO Last administered on 03/03/17 09:31; Admin Dose 40 MG; Start 02/19/17 at 11:30 Enoxaparin Sodium 65 mg 65 mg Q12H SC Last administered on 03/03/17 05:35; Admin Dose 65 MG; Start 02/21/17 at 16:00 Vancomycin HCl/ Dextrose/Water (Vancocin/D5W) 150 ml @ 75 mls/hr Q12H IVPB Last administered on 03/03/17 05:33; Admin Dose 75 MLS/HR; Start 02/23/17 at 16:00 Lactobacillus Acidophilus/ Rhamnosus (Culturelle) 1 cap BID PO Last administered on 03/03/17 09:32; Admin Dose 1 CAP; Start 02/24/17 at 21:00 Megestrol Acetate (Megace Susp) 400 mg BID PO Last administered on 03/03/17 09:32; Admin Dose 400 MG; Start 02/24/17 at 16:00 Pantoprazole (Protonix Tab) 40 mg DAILY@06 PO Last administered on 03/03/17 09:31; Admin Dose 40 MG; Start 02/26/17 at 06:00 Hydromorphone HCl 0.5 mg 0.5 mg Q2H PRN IV PAIN LEVEL 6-10 Last administered on 03/02/17 20:44; Admin Dose 0.5 MG; Start 02/28/17 at 23:30 Lactated Ringer's (Lr) 1,000 ml @ 40 mls/hr Q24H IV Last administered on 03/02 06:34; Admin Dose 40 MLS/HR; Start 02/28/17 at 23:00 Miscellaneous Information (*Rx Drug Level Order Reminder*) 1 ONCE ONCE XX ; Start 03/04/17 at 15:00; Stop 03/04/17 at 15:01 CARLOS SOLIZ NP Mar 03, 2017 15:14
--- NOTE | 2017-03-03 19:42 | CONS ---
Date/Time of Note Date/Time of Note DATE: 03/03/17 TIME: 19:41 Assessment/Plan Assessment/Plan Chief Complaint/Hosp Course ADVANCED OVARIAN CANCER WITH MALIGNANT ASCITES AND PERITONEAL carcinomatosis- Stage IIIc - IV ovarian cancer Large conglomerate pelvic mass inseparable from the uterus, sigmoid colon and rectum containing clumps of calcification suspicious for calcified fibroids and containing cystic areas. Large amount of free intraperitoneal fluid measuring 25 HU with caking of the omentum compatible with carcinomatosis. Centralization of bowel without evidence of bowel obstruction. Moderately severe right hydronephrosis and hydroureter to the level of the pelvic mass. There is moderate left pelvocaliectasis without ureteral dilatation. The bladder is quite distended with urine. POST cystoscopy and insertion of bilateral JJ stents. PER DR ABRAMS-If she gets better and respond to treatment then later on in the future she will need the stents removed and may be replaced CT CHEST - EDOUARD, EXCEPT SMALL L PLEURAL EFFUSION CA 125- 337 POST debulking surgery PATH- [id number] High grade serous carcinoma. D/W SON- HE IS REFUSING CHEMO POST IVC filter UNABLE TO PROCEED WITH CHEMO 2 TO SEPSIS/BACTEREMIA AND CONFUSION/ AMS HOPEFULLY SOON ANEMIA, MICROCYTOSIS COMPLEX ANEMIA W-UP= + COMPONENT ACD DROP H/H POSTOP SERIAL H/H PRBC NEEDED PER STANDING ORDERS D/W RN LEUKOCYTOSIS REACTIVE, PARTIALLY 2 TO Splenectomy, partially 2 to infection CONFUSION NEURO F-UP MRI BRAIN- NO METS Recurrent Sepsis w/FEVER > 102 on 02/19 + leukocytosis => LINE sepsis, line removed * s/p Septic shock with fevers > 102.+ on admission, leukocytosis Bacteremia with blood culture growing gram-positive cocci=> Line DC;d * 02/19 -> BCx (+)Staph aureus, repeat BC x 02/20 (+)GPC -> TLC removed PELVIC ABSCESS- POST DRAINAGE malignant ascites sp para 10.19. hydro AUR from ascites, sp ureteral stenting. ILEUS NG TPN Problems: Consultation Date/Type/Reason Admit Date/Time Jan 22, 2017 at 14:12 Initial Consult Date 01/27/17 Type of Consultation: [email or web address] Referring Provider: DAYANARA BROWN MD 24 HR Interval Summary Free Text/Dictation all noted confused Exam/Review of Systems Vital Signs Vitals Vital Signs Date Time Temp Pulse Resp B/P Pulse Ox O2 Delivery O2 Flow Rate FiO2 03/03/17 08:00 98.2 101 19 121/79 97 03/02/17 08:28 Room Air Intake and Output 03/02/17 03/02/17 03/03/17 15:00 23:00 07:00 Intake Total 1290 ml 200 ml Output Total 810 ml 412 ml Balance 480 ml -212 ml Exam GENERAL: Chronically ill-appearing lady, CONFUSED, NOT IN PAIN VITAL SIGNS: per chart NECK: Supple. No JVD or lymphadenopathy. CARDIAC EXAM: S1, S2. No added sounds or murmurs. CHEST: Bilateral rales. ABDOMEN: Soft, nontender. No guarding or rebound. EXTREMITIES: No cyanosis, clubbing or edema. NEUROLOGIC: Generalized weakness. Results Result Diagram: 03/02/17 1154 03/02/17 1154 Medications Medications Current Medications Acetaminophen (Tylenol Tab) 650 mg Q6H PRN PO PAIN LEVEL 1-3 OR FEVER Last administered on 02/06/17 23:54; Admin Dose 650 MG; Start 01/22/17 at 16:00; Status Future Hold Docusate Sodium (Colace) 100 mg Q12H PRN PO CONSTIPATION; Start 01/22/17 at 16 :00 Magnesium Hydroxide (Milk Of Mag) 30 ml DAILY PRN PO CONSTIPATION Last administered on 01/31/17 07:38; Admin Dose 30 ML; Start 01/22/17 at 16:00 Bisacodyl (Dulcolax) 5 mg DAILY PRN PO CONSTIPATION Last administered on 04:05; Admin Dose 5 MG; Start 01/22/17 at 16:00 Sodium Biphosphate/ Sodium Phosphate (Fleet Enema) 133 ml DAILY PRN [place] CONSTIPATION Last administered on 01/27/17 06:17; Admin Dose 133 ML; Start at 20:30 Morphine Sulfate 2 mg 2 mg Q2H PRN IV PAIN LEVEL 7-10 Last administered on 13:47; Admin Dose 2 MG; Start 01/28/17 at 14:00 Ondansetron HCl/ Dextrose (Zofran Inj/D5W) 54 ml @ 108 mls/hr Q6H PRN IV NAUSEA AND/OR VOMITING; Start 01/31/17 at 12:00 Acetaminophen (Tylenol Liquid) 650 mg Q4H PRN GTB PAIN AND OR ELEVATED TEMP Last administered on 02/06/17 16:19; Admin Dose 650 MG; Start 02/04/17 at 08:30 ; Status Future Hold Ondansetron HCl (Zofran Inj) 4 mg Q6H PRN IV NAUSEA AND/OR VOMITING Last administered on 02/24/17 04:29; Admin Dose 4 MG; Start 02/13/17 at 14:30 Furosemide (Lasix) 40 mg DAILY@06 PO Last administered on 03/03/17 09:31; Admin Dose 40 MG; Start 02/19/17 at 11:30 Enoxaparin Sodium 65 mg 65 mg Q12H SC Last administered on 03/03/17 16:10; Admin Dose 65 MG; Start 02/21/17 at 16:00 Vancomycin HCl/ Dextrose/Water (Vancocin/D5W) 150 ml @ 75 mls/hr Q12H IVPB Last administered on 03/03/17 16:09; Admin Dose 75 MLS/HR; Start 02/23/17 at 16:00 Lactobacillus Acidophilus/ Rhamnosus (Culturelle) 1 cap BID PO Last administered on 03/03/17 09:32; Admin Dose 1 CAP; Start 02/24/17 at 21:00 Megestrol Acetate (Megace Susp) 400 mg BID PO Last administered on 03/03/17 09:32; Admin Dose 400 MG; Start 02/24/17 at 16:00 Pantoprazole (Protonix Tab) 40 mg DAILY@06 PO Last administered on 03/03/17 09:31; Admin Dose 40 MG; Start 02/26/17 at 06:00 Hydromorphone HCl 0.5 mg 0.5 mg Q2H PRN IV PAIN LEVEL 6-10 Last administered on 03/02/17 20:44; Admin Dose 0.5 MG; Start 02/28/17 at 23:30 Lactated Ringer's (Lr) 1,000 ml @ 40 mls/hr Q24H IV Last administered on 03/02 06:34; Admin Dose 40 MLS/HR; Start 02/28/17 at 23:00 Miscellaneous Information (*Rx Drug Level Order Reminder*) 1 ONCE ONCE XX ; Start 03/04/17 at 15:00; Stop 03/04/17 at 15:01 RAMIREZ YBARRA MD Mar 03, 2017 19:42
[2017-03-03 20:00] VITALS: BP 126/86; RESP 20
[2017-03-03] MEDS: LACTATED RINGER'S 1,000 ML IV SCH (23:00)
[2017-03-04 02:00] VITALS: BP 132/85; RESP 18
[2017-03-04] MEDS: VANCOMYCIN 750 MG in DEXTROSE 5% 150 ML IVPB SCH (05:18)
[2017-03-04] MEDS: ENOXAPARIN 80 MG/0.8 ML SYG SC SCH ×2 (05:19→18:24)
[2017-03-04] MEDS: PANTOPRAZOLE (EC) 40 MG TAB PO SCH (05:19)
[2017-03-04] MEDS: FUROSEMIDE 40 MG TAB PO SCH (05:21)
[2017-03-04 06:41] LABS: CREATININE 0.79 mg/dl (0.44-1.00)
[2017-03-04 07:30] VITALS: BP 110/66; RESP 20
--- NOTE | 2017-03-04 08:24 | CONS ---
Date/Time of Note Date/Time of Note DATE: 03/04/17 TIME: 08:20 Consult Date/Type/Reason Admit Date/Time Jan 22, 2017 at 14:12 Initial Consult Date 01/23/17 Type of Consultation: Urology Reason for Consultation Bilateral hydronephrosis Ordering Provider: DAYANARA BROWN MD Subjective Patient is confused Objective Vital Signs Date Time Temp Pulse Resp B/P Pulse Ox O2 Delivery O2 Flow Rate FiO2 03/04/17 07:30 97.5 104 20 110/66 99 03/02/17 08:28 Room Air Intake and Output 03/03/17 03/03/17 03/04/17 15:00 23:00 07:00 Intake Total 120 ml 890 ml 660 ml Output Total 17 ml 900 ml 467 ml Balance 103 ml -10 ml 193 ml Exam Cullen catheter is draining clear urine, the abdomen is soft Results/Medications Result Diagram: 03/02/17 1154 03/04/17 0539 Results 24 hrs Laboratory Tests Test 03/04/17 05:39 Blood Urea Nitrogen 15 Creatinine 0.79 Medications Current Medications Acetaminophen (Tylenol Tab) 650 mg Q6H PRN PO PAIN LEVEL 1-3 OR FEVER Last administered on 02/06/17 23:54; Admin Dose 650 MG; Start 01/22/17 at 16:00; Status Future Hold Docusate Sodium (Colace) 100 mg Q12H PRN PO CONSTIPATION; Start 01/22/17 at 16 :00 Magnesium Hydroxide (Milk Of Mag) 30 ml DAILY PRN PO CONSTIPATION Last administered on 01/31/17 07:38; Admin Dose 30 ML; Start 01/22/17 at 16:00 Bisacodyl (Dulcolax) 5 mg DAILY PRN PO CONSTIPATION Last administered on 04:05; Admin Dose 5 MG; Start 01/22/17 at 16:00 Sodium Biphosphate/ Sodium Phosphate (Fleet Enema) 133 ml DAILY PRN OR CONSTIPATION Last administered on 01/27/17 06:17; Admin Dose 133 ML; Start at 20:30 Morphine Sulfate 2 mg 2 mg Q2H PRN IV PAIN LEVEL 7-10 Last administered on 13:47; Admin Dose 2 MG; Start 01/28/17 at 14:00 Ondansetron HCl/ Dextrose (Zofran Inj/D5W) 54 ml @ 108 mls/hr Q6H PRN IV NAUSEA AND/OR VOMITING; Start 01/31/17 at 12:00 Acetaminophen (Tylenol Liquid) 650 mg Q4H PRN GTB PAIN AND OR ELEVATED TEMP Last administered on 02/06/17 16:19; Admin Dose 650 MG; Start 02/04/17 at 08:30 ; Status Future Hold Ondansetron HCl (Zofran Inj) 4 mg Q6H PRN IV NAUSEA AND/OR VOMITING Last administered on 02/24/17 04:29; Admin Dose 4 MG; Start 02/13/17 at 14:30 Furosemide (Lasix) 40 mg DAILY@06 PO Last administered on 03/04/17 05:21; Admin Dose 40 MG; Start 02/19/17 at 11:30 Enoxaparin Sodium 65 mg 65 mg Q12H SC Last administered on 03/04/17 05:19; Admin Dose 65 MG; Start 02/21/17 at 16:00 Vancomycin HCl/ Dextrose/Water (Vancocin/D5W) 150 ml @ 75 mls/hr Q12H IVPB Last administered on 03/04/17 05:18; Admin Dose 75 MLS/HR; Start 02/23/17 at 16:00 Lactobacillus Acidophilus/ Rhamnosus (Culturelle) 1 cap BID PO Last administered on 03/03/17 22:19; Admin Dose 1 CAP; Start 02/24/17 at 21:00 Megestrol Acetate (Megace Susp) 400 mg BID PO Last administered on 03/03/17 22:15; Admin Dose 400 MG; Start 02/24/17 at 16:00 Pantoprazole (Protonix Tab) 40 mg DAILY@06 PO Last administered on 03/04/17 05:19; Admin Dose 40 MG; Start 02/26/17 at 06:00 Hydromorphone HCl 0.5 mg 0.5 mg Q2H PRN IV PAIN LEVEL 6-10 Last administered on 03/02/17 20:44; Admin Dose 0.5 MG; Start 02/28/17 at 23:30 Lactated Ringer's (Lr) 1,000 ml @ 40 mls/hr Q24H IV Last administered on 03/02 06:34; Admin Dose 40 MLS/HR; Start 02/28/17 at 23:00 Miscellaneous Information (*Rx Drug Level Order Reminder*) 1 ONCE ONCE XX ; Start 03/04/17 at 15:00; Stop 03/04/17 at 15:01 Assessment/Plan Chief Complaint/Hosp Course 56-year-old female with stage IV ovarian cancer presented to the hospital with abdominal pain. CT scan of the abdomen and pelvis showed bilateral hydronephrosis more severe on the right side. The patient underwent cystoscopy and insertion of bilateral JJ stents . The patient had debulking of the tumor by Dr. Ramirez. From a urological standpoint at the present she does have the bilateral JJ stents and her renal function is stable. I did again explained to her that the JJ stents would have to be removed and replaced in about 3 months. Problems: EMILIE ALBERT MD Mar 04, 2017 08:24
[2017-03-04] MEDS: MEGESTROL (40 MG/ML) 10ML CUP PO SCH ×2 (09:59→20:05)
[2017-03-04] MEDS: LACTOBACILLUS RHAMNOSUS CAP PO SCH ×2 (10:05→20:05)
--- NOTE | 2017-03-04 12:07 | CONS ---
Date/Time of Note Date/Time of Note DATE: 03/04/17 TIME: 12:05 Assessment/Plan Assessment/Plan Chief Complaint/Hosp Course ADVANCED OVARIAN CANCER WITH MALIGNANT ASCITES AND PERITONEAL carcinomatosis- Stage IIIc - IV ovarian cancer Large conglomerate pelvic mass inseparable from the uterus, sigmoid colon and rectum containing clumps of calcification suspicious for calcified fibroids and containing cystic areas. Large amount of free intraperitoneal fluid measuring 25 HU with caking of the omentum compatible with carcinomatosis. Centralization of bowel without evidence of bowel obstruction. Moderately severe right hydronephrosis and hydroureter to the level of the pelvic mass. There is moderate left pelvocaliectasis without ureteral dilatation. The bladder is quite distended with urine. POST cystoscopy and insertion of bilateral JJ stents. PER DR ABRAMS-If she gets better and respond to treatment then later on in the future she will need the stents removed and may be replaced CT CHEST - EDOUARD, EXCEPT SMALL L PLEURAL EFFUSION CA 125- 337 POST debulking surgery PATH- T3N0M1 High grade serous carcinoma. D/W SON- HE IS REFUSING CHEMO POST IVC filter UNABLE TO PROCEED WITH CHEMO 2 TO SEPSIS/BACTEREMIA AND CONFUSION/ AMS D/W DR HOUSTON- PT IS CONFUSED, SON DOESN'T WANT CHEMO D/W SON SEVERAL DAYS AGO - HE IS REFUSING CHEMO ANEMIA, MICROCYTOSIS COMPLEX ANEMIA W-UP= + COMPONENT ACD DROP H/H POSTOP SERIAL H/H PRBC NEEDED PER STANDING ORDERS D/W RN LEUKOCYTOSIS REACTIVE, PARTIALLY 2 TO Splenectomy, partially 2 to infection CONFUSION NEURO F-UP MRI BRAIN- NO METS Recurrent Sepsis w/FEVER > 102 on 02/19 + leukocytosis => LINE sepsis, line removed * s/p Septic shock with fevers > 102.+ on admission, leukocytosis Bacteremia with blood culture growing gram-positive cocci=> Line DC;d * 02/19 -> BCx (+)Staph aureus, repeat BC x 02/20 (+)[facility]PC -> TLC removed PELVIC ABSCESS- POST DRAINAGE malignant ascites sp para 10.19. hydro AUR from ascites, sp ureteral stenting. ILEUS NG TPN Problems: Consultation Date/Type/Reason Admit Date/Time Jan 22, 2017 at 14:12 Initial Consult Date 01/27/17 Type of Consultation: [facility] Referring Provider: DAYANARA BROWN MD 24 HR Interval Summary Free Text/Dictation D/W DR HOUSTON PT IS CONFUSED SON DOESN'T WANT CHEMO Exam/Review of Systems Vital Signs Vitals Vital Signs Date Time Temp Pulse Resp B/P Pulse Ox O2 Delivery O2 Flow Rate FiO2 03/04/17 07:30 97.5 104 20 110/66 99 03/02/17 08:28 Room Air Intake and Output 03/03/17 03/03/17 03/04/17 14:59 22:59 06:59 Intake Total 120 ml 890 ml 660 ml Output Total 17 ml 900 ml 467 ml Balance 103 ml -10 ml 193 ml Exam GENERAL: Chronically ill-appearing lady, CONFUSED, NOT IN PAIN VITAL SIGNS: per chart NECK: Supple. No JVD or lymphadenopathy. CARDIAC EXAM: S1, S2. No added sounds or murmurs. CHEST: Bilateral rales. ABDOMEN: Soft, nontender. No guarding or rebound. EXTREMITIES: No cyanosis, clubbing or edema. NEUROLOGIC: Generalized weakness. Results Result Diagram: 03/02/17 1154 03/04/17 0539 Results 24 hrs Laboratory Tests Test 03/04/17 05:39 Blood Urea Nitrogen 15 Creatinine 0.79 Medications Medications Current Medications Acetaminophen (Tylenol Tab) 650 mg Q6H PRN PO PAIN LEVEL 1-3 OR FEVER Last administered on 02/06/17 23:54; Admin Dose 650 MG; Start 01/22/17 at 16:00; Status Future Hold Docusate Sodium (Colace) 100 mg Q12H PRN PO CONSTIPATION; Start 01/22/17 at 16 :00 Magnesium Hydroxide (Milk Of Mag) 30 ml DAILY PRN PO CONSTIPATION Last administered on 01/31/17 07:38; Admin Dose 30 ML; Start 01/22/17 at 16:00 Bisacodyl (Dulcolax) 5 mg DAILY PRN PO CONSTIPATION Last administered on 04:05; Admin Dose 5 MG; Start 01/22/17 at 16:00 Sodium Biphosphate/ Sodium Phosphate (Fleet Enema) 133 ml DAILY PRN [place] CONSTIPATION Last administered on 01/27/17 06:17; Admin Dose 133 ML; Start at 20:30 Morphine Sulfate 2 mg 2 mg Q2H PRN IV PAIN LEVEL 7-10 Last administered on 13:47; Admin Dose 2 MG; Start 01/28/17 at 14:00 Ondansetron HCl/ Dextrose (Zofran Inj/D5W) 54 ml @ 108 mls/hr Q6H PRN IV NAUSEA AND/OR VOMITING; Start 01/31/17 at 12:00 Acetaminophen (Tylenol Liquid) 650 mg Q4H PRN GTB PAIN AND OR ELEVATED TEMP Last administered on 02/06/17 16:19; Admin Dose 650 MG; Start 02/04/17 at 08:30 ; Status Future Hold Ondansetron HCl (Zofran Inj) 4 mg Q6H PRN IV NAUSEA AND/OR VOMITING Last administered on 02/24/17 04:29; Admin Dose 4 MG; Start 02/13/17 at 14:30 Furosemide (Lasix) 40 mg DAILY@06 PO Last administered on 03/04/17 05:21; Admin Dose 40 MG; Start 02/19/17 at 11:30 Enoxaparin Sodium 65 mg 65 mg Q12H SC Last administered on 03/04/17 05:19; Admin Dose 65 MG; Start 02/21/17 at 16:00 Vancomycin HCl/ Dextrose/Water (Vancocin/D5W) 150 ml @ 75 mls/hr Q12H IVPB Last administered on 03/04/17 05:18; Admin Dose 75 MLS/HR; Start 02/23/17 at 16:00 Lactobacillus Acidophilus/ Rhamnosus (Culturelle) 1 cap BID PO Last administered on 03/04/17 10:05; Admin Dose 1 CAP; Start 02/24/17 at 21:00 Megestrol Acetate (Megace Susp) 400 mg BID PO Last administered on 03/04/17 09:59; Admin Dose 400 MG; Start 02/24/17 at 16:00 Pantoprazole (Protonix Tab) 40 mg DAILY@06 PO Last administered on 03/04/17 05:19; Admin Dose 40 MG; Start 02/26/17 at 06:00 Hydromorphone HCl 0.5 mg 0.5 mg Q2H PRN IV PAIN LEVEL 6-10 Last administered on 03/02/17 20:44; Admin Dose 0.5 MG; Start 02/28/17 at 23:30 Lactated Ringer's (Lr) 1,000 ml @ 40 mls/hr Q24H IV Last administered on 03/02t 06:34; Admin Dose 40 MLS/HR; Start 02/28/17 at 23:00 Miscellaneous Information (*Rx Drug Level Order Reminder*) 1 ONCE ONCE XX ; Start 03/04/17 at 15:00; Stop 03/04/17 at 15:01 RAMIREZ YBARRA MD Mar 04, 2017 12:07
--- NOTE | 2017-03-04 12:19 | PN ---
Date/Time of Note Date/Time of Note DATE: 03/04/17 TIME: :26 Assessment/Plan VTE Prophylaxis VTE Prophylaxis Intervention: LMWH Lines/Catheters IV C[facility]ter Type [facility]from [facility] Peripheral IV Urinary Cath still in place: Yes Reason Cath still needed: other (indicate) Assessment/Plan Assessment/Plan 56-year-old female with known stage IV ovarian cancer admitted originally for malignant ascites now status post debulking surgery as well as placement of bilateral JJ stents secondary to severe hydronephrosis and hydroureter. Patient is also status post sepsis with bacteremia as well as pelvic abscess status post drainage. Continues on full dose anticoagulation for bilateral pulmonary emboli Currently, patient is now off TPN and has been started on a mechanical soft diet , nursing reports she is doing better with liquids, she is ambulance but still somewhat confused. She is requiring a sitter. PLAN: Spoke with son in detail. He continues to refuse chemotherapy for his mother. He tells me the goals of discharge are for him to take the patient home. He tells me he can afford to have somebody with her 24 hours a day 7 days a week. Has had this point the plan is to try and discontinue all drains as well as a Cullen catheter, and also start working on weaning the bedside sitter. Was able to wean the sitter patient may possibly be discharged home to have family care. Continue current supportive care JJ stents would have to be removed and replaced in about 3 months. Reviewed patient alongside with the oncologist in detail, we also attempted to reach the patient's son via telephone. The patient will benefit from chemotherapy, and the patient seems to be amenable, but at this time due to her clinical status is not clear that she can make decisions on her own. Has had this time we wanted to explain the benefits of chemotherapy to her son and extend to him that is probably something his mother wanted and see what he said, but was unable to reach him via telephone. We have left messages for him and has no psychosis back we will have this discussion. At this time the only indication for the sitter is because patient is pulling at drains as well as a Cullen catheter and so we will remove Cullen today and monitor postvoid residuals, hopefully the gynecology surgeon will remove the drains from her stomach today and at this that time we will try to discontinue the sitter and see how she does. Further interventions will depend on the findings of our discussions with the son and how she tolerates the removal of all drains. In the meantime we will continue supportive care. Addendum: Spoke with patient's son Noam, via telephone and explained to him benefits of chemo as well as the fact that his mother had expressly wished to pursue chemo prior to getting confused however at this time as patient decision-maker her son is adamant that his mom would not be able to tolerate chemo and does not want to proceed with chemo at this time. Will present this information to the gynecology oncology surgeon as well as the oncologist. Subjective 24 Hr Interval Summary Free Text/Dictation Patient has no new complaints today. She seems to think she is here because of a psychiatric issue. Tells me she can walk she is eating well and she is taking all her medications. Exam/Review of Systems Vital Signs Vitals Vital Signs Date Time Temp Pulse Resp B/P Pulse Ox O2 Delivery O2 Flow Rate FiO2 03/04/17 07:30 97.5 104 20 110/66 99 03/02/17 08:28 Room Air Intake and Output 03/03/17 03/03/17 03/04/17 15:00 23:00 07:00 Intake Total 120 ml 890 ml 660 ml Output Total 17 ml 900 ml 467 ml Balance 103 ml -10 ml 193 ml Exam Constitutional: alert, frail, No oriented (Patient is not able to tell me where she is, she does not of the CT she is in, she is not even able to tell me her about her cancer diagnosis , but she is able to tell me her name and her date of .) Head: normocephalic ENMT: mucosa pink and moist Neck: supple Respiratory: clear to auscultation Cardiovascular: regular rate and rhythm, No murmurs/extra sounds Gastrointestinal: bowel sounds, non-tender, other (drains), soft, surgical scars Musculoskeletal: nl extremities to inspection, other (msc wasting) Results Result Diagram: 03/02/17 1154 03/04/17 0539 Results 24 hrs Laboratory Tests Test 03/04/17 05:39 Blood Urea Nitrogen 15 Creatinine 0.79 Medications Medications Current Medications Acetaminophen (Tylenol Tab) 650 mg Q6H PRN PO PAIN LEVEL 1-3 OR FEVER Last administered on 02/06/17t 23:54; Admin Dose 650 MG; Start 01/22/17 at 16:00; Status Future Hold Docusate Sodium (Colace) 100 mg Q12H PRN PO CONSTIPATION; Start 01/22/17 at 16 :00 Magnesium Hydroxide (Milk Of Mag) 30 ml DAILY PRN PO CONSTIPATION Last administered on 01/31/17 07:38; Admin Dose 30 ML; Start 01/22/17 at 16:00 Bisacodyl (Dulcolax) 5 mg DAILY PRN PO CONSTIPATION Last administered on 04:05; Admin Dose 5 MG; Start 01/22/17 at 16:00 Sodium Biphosphate/ Sodium Phosphate (Fleet Enema) 133 ml DAILY PRN [place] CONSTIPATION Last administered on 01/27/17 06:17; Admin Dose 133 ML; Start at 20:30 Morphine Sulfate 2 mg 2 mg Q2H PRN IV PAIN LEVEL 7-10 Last administered on 13:47; Admin Dose 2 MG; Start 01/28/17 at 14:00 Ondansetron HCl/ Dextrose (Zofran Inj/D5W) 54 ml @ 108 mls/hr Q6H PRN IV NAUSEA AND/OR VOMITING; Start 01/31/17 at 12:00 Acetaminophen (Tylenol Liquid) 650 mg Q4H PRN GTB PAIN AND OR ELEVATED TEMP Last administered on 02/06/17 16:19; Admin Dose 650 MG; Start 02/04/17 at 08:30 ; Status Future Hold Ondansetron HCl (Zofran Inj) 4 mg Q6H PRN IV NAUSEA AND/OR VOMITING Last administered on 02/24/17 04:29; Admin Dose 4 MG; Start 02/13/17 at 14:30 Furosemide (Lasix) 40 mg DAILY@06 PO Last administered on 03/04/17 05:21; Admin Dose 40 MG; Start 02/19/17 at 11:30 Enoxaparin Sodium 65 mg 65 mg Q12H SC Last administered on 03/04/17 05:19; Admin Dose 65 MG; Start 02/21/17 at 16:00 Vancomycin HCl/ Dextrose/Water (Vancocin/D5W) 150 ml @ 75 mls/hr Q12H IVPB Last administered on 03/04/17 05:18; Admin Dose 75 MLS/HR; Start 02/23/17 at 16:00 Lactobacillus Acidophilus/ Rhamnosus (Culturelle) 1 cap BID PO Last administered on 03/04/17 10:05; Admin Dose 1 CAP; Start 02/24/17 at 21:00 Megestrol Acetate (Megace Susp) 400 mg BID PO Last administered on 03/04/17 09:59; Admin Dose 400 MG; Start 02/24/17 at 16:00 Pantoprazole (Protonix Tab) 40 mg DAILY@06 PO Last administered on 03/04/17 05:19; Admin Dose 40 MG; Start 02/26/17 at 06:00 Hydromorphone HCl 0.5 mg 0.5 mg Q2H PRN IV PAIN LEVEL 6-10 Last administered on 03/02/17 20:44; Admin Dose 0.5 MG; Start 02/28/17 at 23:30 Lactated Ringer's (Lr) 1,000 ml @ 40 mls/hr Q24H IV Last administered on 03/02 06:34; Admin Dose 40 MLS/HR; Start 02/28/17 at 23:00 Miscellaneous Information (*Rx Drug Level Order Reminder*) 1 ONCE ONCE XX ; Start 03/04/17 at 15:00; Stop 03/04/17 at 15:01 LILIANA HOUSTON Mar 04, 2017 11:36
[2017-03-04 14:00] VITALS: BP 113/74; RESP 18
--- NOTE | 2017-03-04 14:48 | CONS ---
Date/Time of Note Date/Time of Note DATE: 03/04/17 TIME: 14:47 Assessment/Plan Assessment/Plan Chief Complaint/Hosp Course SUBJECTIVE: No acute events overnight. The patient is alert, looks comfortable, no fevers. INDWELLINGS: The patient has intra-abdominal drainage catheter, peripheral IV. ANTIMICROBIALS: Vancomycin. PHYSICAL EXAMINATION: GENERAL: This is a cachectic, wasted, well-developed, middle-aged woman who is in no distress. HEENT: Head atraumatic, normocephalic. Sclerae anicteric. Buccal mucosa dry. NECK: Supple. CHEST: Rise symmetrical. Breath sounds diminished to bases. HEART: S1, S2. ABDOMEN: Soft, bowel tones present. EXTREMITIES: No cyanosis. ASSESSMENT: 1. Systemic inflammatory response syndrome 2. Coagulase-negative staph bacteremia, status post triple lumen catheter discontinued, repeat blood cultures negative. 3. Metastatic ovarian cancer status post ureteral dissection, appendectomy with splenectomy and cytoreduction on 02/02/2017. 4. Status post alpha hemolytic strep urinary tract infection. 5. Bilateral hydronephrosis, status post JJ stent insertion on 01/30/2017. 6. Anemia. 7. Status post respiratory failure. 8. Status post CT-guided drainage of intra-abdominal abscess on 02/10/2017. PLAN: The patient remains stable. Complete vancomycin for 3 more days. rec- s noted, JJ stents to be removed in 3 months DW staff/pt Problems: Consultation Date/Type/Reason Admit Date/Time Jan 22, 2017 at 14:12 Initial Consult Date 02/03/17 Type of Consultation: ID Referring Provider: DAYANARA BROWN MD Exam/Review of Systems Vital Signs Vitals Vital Signs Date Time Temp Pulse Resp B/P Pulse Ox O2 Delivery O2 Flow Rate FiO2 03/04/17 14:00 99.0 103 18 113/74 98 03/02/17 08:28 Room Air Intake and Output 03/03/17 03/03/17 03/04/17 15:00 23:00 07:00 Intake Total 120 ml 890 ml 660 ml Output Total 17 ml 900 ml 467 ml Balance 103 ml -10 ml 193 ml Results Result Diagram: 03/02/17 1154 03/04/17 0539 Results 24 hrs Laboratory Tests Test 03/04/17 05:39 Blood Urea Nitrogen 15 Creatinine 0.79 Medications Medications Current Medications Acetaminophen (Tylenol Tab) 650 mg Q6H PRN PO PAIN LEVEL 1-3 OR FEVER Last administered on 02/06/17 23:54; Admin Dose 650 MG; Start 01/22/17 at 16:00; Status Future Hold Docusate Sodium (Colace) 100 mg Q12H PRN PO CONSTIPATION; Start 01/22/17 at 16 :00 Magnesium Hydroxide (Milk Of Mag) 30 ml DAILY PRN PO CONSTIPATION Last administered on 01/31/17 07:38; Admin Dose 30 ML; Start 01/22/17 at 16:00 Bisacodyl (Dulcolax) 5 mg DAILY PRN PO CONSTIPATION Last administered on 04:05; Admin Dose 5 MG; Start 01/22/17 at 16:00 Sodium Biphosphate/ Sodium Phosphate (Fleet Enema) 133 ml DAILY PRN OR CONSTIPATION Last administered on 01/27/17 06:17; Admin Dose 133 ML; Start at 20:30 Morphine Sulfate 2 mg 2 mg Q2H PRN IV PAIN LEVEL 7-10 Last administered on 13:47; Admin Dose 2 MG; Start 01/28/17 at 14:00 Ondansetron HCl/ Dextrose (Zofran Inj/D5W) 54 ml @ 108 mls/hr Q6H PRN IV NAUSEA AND/OR VOMITING; Start 01/31/17 at 12:00 Acetaminophen (Tylenol Liquid) 650 mg Q4H PRN GTB PAIN AND OR ELEVATED TEMP Last administered on 02/06/17 16:19; Admin Dose 650 MG; Start 02/04/17 at 08:30 ; Status Future Hold Ondansetron HCl (Zofran Inj) 4 mg Q6H PRN IV NAUSEA AND/OR VOMITING Last administered on 02/24/17 04:29; Admin Dose 4 MG; Start 02/13/17 at 14:30 Furosemide (Lasix) 40 mg DAILY@06 PO Last administered on 03/04/17 05:21; Admin Dose 40 MG; Start 02/19/17 at 11:30 Enoxaparin Sodium 65 mg 65 mg Q12H SC Last administered on 03/04/17 05:19; Admin Dose 65 MG; Start 02/21/17 at 16:00 Vancomycin HCl/ Dextrose/Water (Vancocin/D5W) 150 ml @ 75 mls/hr Q12H IVPB Last administered on 03/04/17 05:18; Admin Dose 75 MLS/HR; Start 02/23/17 at 16:00 Lactobacillus Acidophilus/ Rhamnosus (Culturelle) 1 cap BID PO Last administered on 03/04/17 10:05; Admin Dose 1 CAP; Start 02/24/17 at 21:00 Megestrol Acetate (Megace Susp) 400 mg BID PO Last administered on 03/04/17 09:59; Admin Dose 400 MG; Start 02/24/17 at 16:00 Pantoprazole (Protonix Tab) 40 mg DAILY@06 PO Last administered on 03/04/17 05:19; Admin Dose 40 MG; Start 02/26/17 at 06:00 Hydromorphone HCl 0.5 mg 0.5 mg Q2H PRN IV PAIN LEVEL 6-10 Last administered on 03/02/17 20:44; Admin Dose 0.5 MG; Start 02/28/17 at 23:30 Lactated Ringer's (Lr) 1,000 ml @ 40 mls/hr Q24H IV Last administered on 03/02 06:34; Admin Dose 40 MLS/HR; Start 02/28/17 at 23:00 Miscellaneous Information (*Rx Drug Level Order Reminder*) 1 ONCE ONCE XX ; Start 03/04/17 at 15:00; Stop 03/04/17 at 15:01 CARLOS SOLIZ NP Mar 04, 2017 14:48
[2017-03-04 19:36] VITALS: BP 117/64; RESP 18
[2017-03-04] MEDS: LACTATED RINGER'S 1,000 ML IV SCH (19:57)
[2017-03-05] MEDS ORDERED: VANCOMYCIN 1.25 GM in SOD CHLORIDE 0.9% 250 ML IVPB SCH (01:00)
[2017-03-05 02:20] VITALS: BP 120/79; RESP 16
[2017-03-05] MEDS: ENOXAPARIN 80 MG/0.8 ML SYG SC SCH ×2 (03:48→16:39)
[2017-03-05] MEDS: PANTOPRAZOLE (EC) 40 MG TAB PO SCH (05:07)
[2017-03-05] MEDS: FUROSEMIDE 40 MG TAB PO SCH (05:07)
[2017-03-05 05:34] LABS: BASOPHIL # 0.1 10^3/ul (0.0-0.1); BASOPHILS % 0.4 % (0.0-2.0); EOSINOPHILS # 0.2 10^3/ul (0.0-0.5); HEMATOCRIT 32.3 % (37.0-47.0); HEMOGLOBIN 10.2 g/dl (12.0-16.0); LYMPHOCYTES # 1.4 10^3/ul (0.8-2.9); LYMPHOCYTES % 8.6 % (15.0-51.0); MEAN CORPUSCULAR HEMOGLOBIN 26.4 pg (29.0-33.0); MEAN CORPUSCULAR HGB CONC 31.6 g/dl (32.0-37.0); MEAN CORPUSCULAR VOLUME 83.5 fl (82.0-101.0); MEAN PLATELET VOLUME 12.2 fl (7.4-10.4); MONOCYTE # 1.2 10^3/ul (0.3-0.9); MONOCYTES % 7.8 % (0.0-11.0); NEUTROPHIL # 12.6 10^3/ul (1.6-7.5); NEUTROPHILS % 80.8 % (39.0-77.0); PLATELET COUNT 625 10^3/UL (140-415); RED BLOOD COUNT 3.87 10^6/ul (4.20-5.40); RED CELL DISTRIBUTION WIDTH 18.2 % (11.5-14.5); WHITE BLOOD COUNT 15.6 10^3/ul (4.8-10.8)
[2017-03-05 06:11] LABS: CALCIUM 9.7 mg/dl (8.4-10.2); CREATININE 0.77 mg/dl (0.44-1.00); MAGNESIUM 1.7 mg/dl (1.7-2.5)
[2017-03-05 06:16] LABS: POTASSIUM 2.8 mmol/L (3.5-5.1)
[2017-03-05] MEDS ORDERED: POTASSIUM CHLORIDE (SR) 20 MEQ TAB PO ONE ×3 (06:24→08:30)
[2017-03-05] MEDS ORDERED: MAGNESIUM SULFATE 2 GM/50 ML 50 ML IVPB ONE (06:30)
[2017-03-05 07:40] VITALS: BP 121/83; RESP 18
[2017-03-05 09:38] LABS: ANISOCYTOSIS 1+ (0-0); BURR CELLS 1+ (0-0); EOSINOPHILS % (M) 3 % (0-7); GIANT THROMBO% (M) 1 % (0-0); HYPOCHROMASIA 1+ (0-0); METAMYELOCYTES %M 1 % (0-0); MONOCYTES % (M) 7 % (0-11); PLATELET ESTIMATE INCREASED; POIKILOCYTOSIS 1+ (0-0); POLYCHROMASIA 1+ (0-0)
[2017-03-05] MEDS: LACTOBACILLUS RHAMNOSUS CAP PO SCH ×2 (09:59→20:34)
[2017-03-05] MEDS: MEGESTROL (40 MG/ML) 10ML CUP PO SCH ×2 (09:59→20:34)
--- NOTE | 2017-03-05 11:13 | CONS ---
Date/Time of Note Date/Time of Note DATE: 03/05/17 TIME: 11:11 Assessment/Plan Assessment/Plan Chief Complaint/Hosp Course SUBJECTIVE: No acute events overnight. The patient is alert, confused, looks comfortable, no fevers. INDWELLINGS: none ANTIMICROBIALS: Vancomycin. PHYSICAL EXAMINATION: GENERAL: This is a cachectic, wasted, well-developed, middle-aged woman who is in no distress. HEENT: Head atraumatic, normocephalic. Sclerae anicteric. Buccal mucosa dry. NECK: Supple. CHEST: Rise symmetrical. Breath sounds diminished to bases. HEART: S1, S2. ABDOMEN: Soft, bowel tones present. EXTREMITIES: No cyanosis. ASSESSMENT: 1. Systemic inflammatory response syndrome 2. Coagulase-negative staph bacteremia, status post triple lumen catheter discontinued, repeat blood cultures negative. 3. Metastatic ovarian cancer status post ureteral dissection, appendectomy with splenectomy and cytoreduction on 02/02/2017. 4. Status post alpha hemolytic strep urinary tract infection. 5. Bilateral hydronephrosis, status post JJ stent insertion on 01/30/2017. 6. Anemia. 7. Status post respiratory failure. 8. Status post CT-guided drainage of intra-abdominal abscess on 02/10/2017. PLAN: The patient remains stable, pulled IV, will change abx to PO Zyvox for 2 more days, repeat cx's prn [facility] staff Problems: Consultation Date/Type/Reason Admit Date/Time Jan 22, 2017 at 14:12 Initial Consult Date 02/03/17 Type of Consultation: ID Referring Provider: DAYANARA BROWN MD Exam/Review of Systems Vital Signs Vitals Vital Signs Date Time Temp Pulse Resp B/P Pulse Ox O2 Delivery O2 Flow Rate FiO2 03/05/17 07:40 97.5 114 18 121/83 96 03/02/17 08:28 Room Air Intake and Output 03/04/17 03/04/17 03/05/17 15:00 23:00 07:00 Intake Total 150 ml 1250 ml 890 ml Output Total 1550 ml Balance 150 ml -300 ml 890 ml Results Result Diagram: 03/05/17 0502 03/05/17 0502 Results 24 hrs Laboratory Tests Test 03/04/17 14:54 03/05/17 05:02 Vancomycin Level Trough 21.7 *H White Blood Count 15.6 H Red Blood Count 3.87 L Hemoglobin 10.2 L Hematocrit 32.3 L Mean Corpuscular Volume 83.5 Mean Corpuscular Hemoglobin 26.4 L Mean Corpuscular Hemoglobin Concent 31.6 L Red Cell Distribution Width 18.2 H Platelet Count 625 H Mean Platelet Volume 12.2 H Neutrophils % 80.8 H Segmented Neutrophils % (Manual) 78 H Band Neutrophils % (Manual) 4 Lymphocytes % 8.6 L Lymphocytes % (Manual) 7 L Monocytes % 7.8 Monocytes % (Manual) 7 Eosinophils % 1.0 Eosinophils % (Manual) 3 Basophils % 0.4 Metamyelocytes % (manual) 1 H Nucleated Red Blood Cells % 0.0 Neutrophils # 12.6 H Neutrophils # (Manual) 12.3 H Band Neutrophils # 0.6 Absolute Lymphocytes (Manual) 1.0 Lymphocytes # 1.4 Monocytes # 1.2 H Absolute Monocytes (Manual) 1.0 H Eosinophils # 0.2 Basophils # 0.1 Metamyelocytes # 0.1 H Nucleated Red Blood Cells # 0.0 Platelet Estimate INCREASED Giant Platelets 1 H Polychromasia 1+ Hypochromasia 1+ Poikilocytosis 1+ Anisocytosis 1+ Sodium Level 142 Potassium Level 2.8 *L Chloride Level 99 Carbon Dioxide Level 28 Anion Gap 18 H Blood Urea Nitrogen 14 Creatinine 0.77 Glucose Level 85 Calcium Level 9.7 Magnesium Level 1.7 Medications Medications Current Medications Acetaminophen (Tylenol Tab) 650 mg Q6H PRN PO PAIN LEVEL 1-3 OR FEVER Last administered on 02/06/17 23:54; Admin Dose 650 MG; Start 01/22/17 at 16:00; Status Future Hold Docusate Sodium (Colace) 100 mg Q12H PRN PO CONSTIPATION; Start 01/22/17 at 16 :00 Magnesium Hydroxide (Milk Of Mag) 30 ml DAILY PRN PO CONSTIPATION Last administered on 01/31/17 07:38; Admin Dose 30 ML; Start 01/22/17 at 16:00 Bisacodyl (Dulcolax) 5 mg DAILY PRN PO CONSTIPATION Last administered on 04:05; Admin Dose 5 MG; Start 01/22/17 at 16:00 Sodium Biphosphate/ Sodium Phosphate (Fleet Enema) 133 ml DAILY PRN [place] CONSTIPATION Last administered on 01/27/17 06:17; Admin Dose 133 ML; Start at 20:30 Morphine Sulfate 2 mg 2 mg Q2H PRN IV PAIN LEVEL 7-10 Last administered on 13:47; Admin Dose 2 MG; Start 01/28/17 at 14:00 Ondansetron HCl/ Dextrose (Zofran Inj/D5W) 54 ml @ 108 mls/hr Q6H PRN IV NAUSEA AND/OR VOMITING; Start 01/31/17 at 12:00 Acetaminophen (Tylenol Liquid) 650 mg Q4H PRN GTB PAIN AND OR ELEVATED TEMP Last administered on 02/06/17 16:19; Admin Dose 650 MG; Start 02/04/17 at 08:30 ; Status Future Hold Ondansetron HCl (Zofran Inj) 4 mg Q6H PRN IV NAUSEA AND/OR VOMITING Last administered on 02/24/17 04:29; Admin Dose 4 MG; Start 02/13/17 at 14:30 Furosemide (Lasix) 40 mg DAILY@06 PO Last administered on 03/05/17 05:07; Admin Dose 40 MG; Start 02/19/17 at 11:30 Enoxaparin Sodium (Lovenox) 65 mg Q12H SC Last administered on 03/05/17 03:48 ; Admin Dose 65 MG; Start 02/21/17 at 16:00 Lactobacillus Acidophilus/ Rhamnosus (Culturelle) 1 cap BID PO Last administered on 03/05/17 09:59; Admin Dose 1 CAP; Start 02/24/17 at 21:00 Megestrol Acetate (Megace Susp) 400 mg BID PO Last administered on 03/05/17 09:59; Admin Dose 400 MG; Start 02/24/17 at 16:00 Pantoprazole (Protonix Tab) 40 mg DAILY@06 PO Last administered on 03/05/17 05:07; Admin Dose 40 MG; Start 02/26/17 at 06:00 Hydromorphone HCl 0.5 mg 0.5 mg Q2H PRN IV PAIN LEVEL 6-10 Last administered on 03/02/17 20:44; Admin Dose 0.5 MG; Start 02/28/17 at 23:30 Lactated Ringer's 1,000 ml @ 40 mls/hr Q24H IV Last administered on 11/29/ 17at 19:57; Admin Dose 40 MLS/HR; Start 02/28/17 at 23:00 Vancomycin HCl/ Sodium Chloride (Vancocin/NS) 250 ml @ 83.333 mls/ hr Q24H IVPB Last administered on 03/05/17 00:56; Admin Dose 83.333 MLS/HR; Start at 01:00 CARLOS SOLIZ NP Mar 05, 2017 11:13
--- NOTE | 2017-03-05 12:01 | PN ---
Date/Time of Note Date/Time of Note DATE: 03/05/17 TIME: 11:39 Assessment/Plan VTE Prophylaxis VTE Prophylaxis Intervention: LMWH Lines/Catheters IV Catheter Type (from [facility]): Peripheral IV Urinary Cath still in place: Yes Reason Cath still needed: other (indicate) (sen has been d/c) Assessment/Plan Assessment/Plan Assessment/Plan 56-year-old female with known stage IV ovarian cancer admitted originally for malignant ascites now status post debulking surgery as well as placement of bilateral JJ stents secondary to severe hydronephrosis and hydroureter. Patient is also status post sepsis with bacteremia as well as pelvic abscess status post drainage. Continues on full dose anticoagulation for bilateral pulmonary emboli PLAN: Spoke with son in detail. He continues to refuse chemotherapy for his mother. He tells me the goals of discharge are for him to take the patient home. He tells me he can afford to have somebody with her 24 hours a day 7 days a week. Patient has been weaned off sitter, monitor wbc, start low dose seroquel and plan for possible d/c to home with family tomorrow. Continue current supportive care JJ stents would have to be removed and replaced in about 3 months. Subjective 24 Hr Interval Summary Free Text/Dictation The patient was agitated when I saw her. She told me a nurse came in and pulled out her IV line and called her suicidal and psychotic, she was in tears and very anxious. However upon speaking with nursing staff, patient had pulled out her own IV line, and upon further speaking with the patient and I could see the patient was quite confused. She seems to think she was in a psychiatric facility and we were preventing her from leaving because she was suicidal. She eventually calmed down and accepted that she wasn't in a psych unit. Again I brought up the issue of her cancer and chemotherapy, again patient denies having cancer, and also at this time vehemently refuse chemotherapy. She was reviewed again after about an hour, with her son in the room and we discussed again the goals of care and the need for chemotherapy. I stressed multiple times the benefits of chemo including the fact that the oncologist as well as the gynecology oncology surgeon also strongly recommended. I stressed the fact that chemo could potentially cure the patient and doing nothing may hasten her . The patient's son assures me that neither he nor his mother would like to have chemo as an inpatient, and this was verified by the mother, ( albeit, unreliably due to her mental status), and that they would like to return to her outpatient oncologist Dr. Donis whom she has been seeing for almost a year for continued management and care. Also her son was able to evaluate her and see that she was quite encephalopathic , with confused speech intermittently and at this time again I brought up the issue of placement versus the patient returning home with him. Again he very specifically told me his mother will not be going to a group home and he wanted to take her home, and he has family in help and he can assure 24 hour observation and support for her at home. I also asked him about the need for things like a wheelchair or bedside commode, he also refused these stating that he had everything he needed. I offered low-dose Seroquel to help with her confusion, and he has consented to this at minimal doses. So we will be starting her on Seroquel at night only for now and hopefully this will keep her calm enough to where the family can comfortably take care of her. Exam/Review of Systems Vital Signs Vitals Vital Signs Date Time Temp Pulse Resp B/P Pulse Ox O2 Delivery O2 Flow Rate FiO2 03/05/17 07:40 97.5 114 18 121/83 96 03/02/17 08:28 Room Air Intake and Output 03/04/17 03/04/17 03/05/17 15:00 23:00 07:00 Intake Total 150 ml 1250 ml 890 ml Output Total 1550 ml Balance 150 ml -300 ml 890 ml Exam Constitutional: alert, frail, Not consistently oriented Head: normocephalic ENMT: mucosa pink and moist Neck: supple Respiratory: clear to auscultation Cardiovascular: regular rate and rhythm, No murmurs/extra sounds Gastrointestinal: bowel sounds, non-tender, other (drains), soft, surgical scars Musculoskeletal: nl extremities to inspection, other (msc wasting) Results Result Diagram: 03/05/17 0502 03/05/17 0502 Results 24 hrs Laboratory Tests Test 03/04/17 14:54 03/05/17 05:02 Vancomycin Level Trough 21.7 *H White Blood Count 15.6 H Red Blood Count 3.87 L Hemoglobin 10.2 L Hematocrit 32.3 L Mean Corpuscular Volume 83.5 Mean Corpuscular Hemoglobin 26.4 L Mean Corpuscular Hemoglobin Concent 31.6 L Red Cell Distribution Width 18.2 H Platelet Count 625 H Mean Platelet Volume 12.2 H Neutrophils % 80.8 H Segmented Neutrophils % (Manual) 78 H Band Neutrophils % (Manual) 4 Lymphocytes % 8.6 L Lymphocytes % (Manual) 7 L Monocytes % 7.8 Monocytes % (Manual) 7 Eosinophils % 1.0 Eosinophils % (Manual) 3 Basophils % 0.4 Metamyelocytes % (manual) 1 H Nucleated Red Blood Cells % 0.0 Neutrophils # 12.6 H Neutrophils # (Manual) 12.3 H Band Neutrophils # 0.6 Absolute Lymphocytes (Manual) 1.0 Lymphocytes # 1.4 Monocytes # 1.2 H Absolute Monocytes (Manual) 1.0 H Eosinophils # 0.2 Basophils # 0.1 Metamyelocytes # 0.1 H Nucleated Red Blood Cells # 0.0 Platelet Estimate INCREASED Giant Platelets 1 H Polychromasia 1+ Hypochromasia 1+ Poikilocytosis 1+ Anisocytosis 1+ Sodium Level 142 Potassium Level 2.8 *L Chloride Level 99 Carbon Dioxide Level 28 Anion Gap 18 H Blood Urea Nitrogen 14 Creatinine 0.77 Glucose Level 85 Calcium Level 9.7 Magnesium Level 1.7 Medications Medications Current Medications Acetaminophen (Tylenol Tab) 650 mg Q6H PRN PO PAIN LEVEL 1-3 OR FEVER Last administered on 02/06/17 23:54; Admin Dose 650 MG; Start 01/22/17 at 16:00; Status Future Hold Docusate Sodium (Colace) 100 mg Q12H PRN PO CONSTIPATION; Start 01/22/17 at 16 :00 Magnesium Hydroxide (Milk Of Mag) 30 ml DAILY PRN PO CONSTIPATION Last administered on 01/31/17 07:38; Admin Dose 30 ML; Start 01/22/17 at 16:00 Bisacodyl (Dulcolax) 5 mg DAILY PRN PO CONSTIPATION Last administered on 04:05; Admin Dose 5 MG; Start 01/22/17 at 16:00 Sodium Biphosphate/ Sodium Phosphate (Fleet Enema) 133 ml DAILY PRN [place] CONSTIPATION Last administered on 01/27/17 06:17; Admin Dose 133 ML; Start at 20:30 Morphine Sulfate 2 mg 2 mg Q2H PRN IV PAIN LEVEL 7-10 Last administered on 13:47; Admin Dose 2 MG; Start 01/28/17 at 14:00 Ondansetron HCl/ Dextrose (Zofran Inj/D5W) 54 ml @ 108 mls/hr Q6H PRN IV NAUSEA AND/OR VOMITING; Start 01/31/17 at 12:00 Acetaminophen (Tylenol Liquid) 650 mg Q4H PRN GTB PAIN AND OR ELEVATED TEMP Last administered on 02/06/17 16:19; Admin Dose 650 MG; Start 02/04/17 at 08:30 ; Status Future Hold Ondansetron HCl (Zofran Inj) 4 mg Q6H PRN IV NAUSEA AND/OR VOMITING Last administered on 02/24/17 04:29; Admin Dose 4 MG; Start 02/13/17 at 14:30 Furosemide (Lasix) 40 mg DAILY@06 PO Last administered on 03/05/17 05:07; Admin Dose 40 MG; Start 02/19/17 at 11:30 Enoxaparin Sodium (Lovenox) 65 mg Q12H SC Last administered on 03/05/17 03:48 ; Admin Dose 65 MG; Start 02/21/17 at 16:00 Lactobacillus Acidophilus/ Rhamnosus (Culturelle) 1 cap BID PO Last administered on 03/05/17 09:59; Admin Dose 1 CAP; Start 02/24/17 at 21:00 Megestrol Acetate (Megace Susp) 400 mg BID PO Last administered on 03/05/17 09:59; Admin Dose 400 MG; Start 02/24/17 at 16:00 Pantoprazole (Protonix Tab) 40 mg DAILY@06 PO Last administered on 03/05/17 05:07; Admin Dose 40 MG; Start 02/26/17 at 06:00 Hydromorphone HCl 0.5 mg 0.5 mg Q2H PRN IV PAIN LEVEL 6-10 Last administered on 03/02/17 20:44; Admin Dose 0.5 MG; Start 02/28/17 at 23:30 Lactated Ringer's (Lr) 1,000 ml @ 40 mls/hr Q24H IV Last administered on 03/04 19:57; Admin Dose 40 MLS/HR; Start 11/25/17 at 23:00 Linezolid (Zyvox) 600 mg BID PO ; Start 03/05/17 at 21:00 LILIANA HOUSTON Mar 05, 2017 11:51
[2017-03-05] MEDS: MAGNESIUM OXIDE 400 MG TAB PO SCH ×2 (12:04→20:34)
[2017-03-05 15:13] VITALS: BP 118/70; RESP 18
--- NOTE | 2017-03-05 15:19 | RADRPT ---
PROCEDURE: Ultrasound of the anterior abdominal wall periumbilical region. CLINICAL INDICATION: Painful lesion in the anterior abdominal wall periumbilical region. TECHNIQUE: High-resolution sonography of the anterior abdominal wall periumbilical region at the s ite of the painful lesion was performed in the axial and sagittal planes. COMPARISON: None FINDINGS: There is no fluid collection or mass. There is no abnormality at the site of the painful lesion in the anterior abdominal wall periumbilic al region. IMPRESSION: 1. No abnormality at the site of the painful lesion in the anterior abdominal wall periumbilical re gion. 2. Any further management regarding the painful lesion should be based on clinical grounds. RPTAT: QQ .Eliud Yoder MD, MD Date Time Electronically viewed and signed by .Eliud Yoder MD, on 03/05/2017 15:19 .R/
--- NOTE | 2017-03-05 17:17 | CONS ---
Date/Time of Note Date/Time of Note DATE: 03/05/17 TIME: 17:14 Assessment/Plan Assessment/Plan Chief Complaint/Hosp Course ADVANCED OVARIAN CANCER WITH MALIGNANT ASCITES AND PERITONEAL carcinomatosis- Stage IIIc - IV ovarian cancer Large conglomerate pelvic mass inseparable from the uterus, sigmoid colon and rectum containing clumps of calcification suspicious for calcified fibroids and containing cystic areas. Large amount of free intraperitoneal fluid measuring 25 HU with caking of the omentum compatible with carcinomatosis. Centralization of bowel without evidence of bowel obstruction. Moderately severe right hydronephrosis and hydroureter to the level of the pelvic mass. There is moderate left pelvocaliectasis without ureteral dilatation. The bladder is quite distended with urine. POST cystoscopy and insertion of bilateral JJ stents. PER DR ABRAMS-If she gets better and respond to treatment then later on in the future she will need the stents removed and may be replaced CT CHEST - EDOUARD, EXCEPT SMALL L PLEURAL EFFUSION CA 125- 337 POST debulking surgery PATH- [id number] High grade serous carcinoma. D/W SON- HE IS REFUSING CHEMO POST IVC filter UNABLE TO PROCEED WITH CHEMO 2 TO SEPSIS/BACTEREMIA AND CONFUSION/ AMS D/W DR HOUSTON- PT IS CONFUSED, SON DOESN'T WANT CHEMO D/W SON- HE IS REFUSING CHEMO FOR NOW, AND HE IS TELLING THAT PT HAS OUTPT ONCOLOGIST WITH WHOM HE WANT TO HAVE A F-UP POST DC HE WANT TO PT TO BE DC HOME ANEMIA, MICROCYTOSIS COMPLEX ANEMIA W-UP= + COMPONENT ACD DROP H/H POSTOP SERIAL H/H PRBC NEEDED PER STANDING ORDERS D/W RN LEUKOCYTOSIS REACTIVE, PARTIALLY 2 TO Splenectomy, partially 2 to infection CONFUSION NEURO F-UP MRI BRAIN- NO METS Recurrent Sepsis w/FEVER > 102 on 02/19 + leukocytosis => LINE sepsis, line removed * s/p Septic shock with fevers > 102.+ on admission, leukocytosis Bacteremia with blood culture growing gram-positive cocci=> Line DC;d * 02/19 -> BCx (+)Staph aureus, repeat BC x 02/20 (+)GPC -> TLC removed PELVIC ABSCESS- POST DRAINAGE malignant ascites sp para 10.19. hydro AUR from ascites, sp ureteral stenting. ILEUS NG TPN Problems: Consultation Date/Type/Reason Admit Date/Time Jan 22, 2017 at 14:12 Initial Consult Date 01/27/17 Type of Consultation: [facility] Referring Provider: DAYANARA BROWN MD 24 HR Interval Summary Free Text/Dictation ALL NOTED NO NEW EVENTS CONFUSED D/W SON- HE IS REFUSING CHEMO FOR NOW, AND HE IS TELLING THAT PT HER OUTPT ONCOLOGIST WITH WHOM HE WANT TO HAVE A F-UP Exam/Review of Systems Vital Signs Vitals Vital Signs Date Time Temp Pulse Resp B/P Pulse Ox O2 Delivery O2 Flow Rate FiO2 03/05/17 15:13 98.4 110 18 118/70 95 03/02/17 08:28 Room Air Intake and Output 03/04/17 03/04/17 03/05/17 15:00 23:00 07:00 Intake Total 150 ml 1250 ml 890 ml Output Total 1550 ml Balance 150 ml -300 ml 890 ml Exam GENERAL: Chronically ill-appearing lady, CONFUSED, NOT IN PAIN VITAL SIGNS: per chart NECK: Supple. No JVD or lymphadenopathy. CARDIAC EXAM: S1, S2. No added sounds or murmurs. CHEST: Bilateral rales. ABDOMEN: Soft, nontender. No guarding or rebound. EXTREMITIES: No cyanosis, clubbing or edema. NEUROLOGIC: Generalized weakness. Results Result Diagram: 03/05/17 0502 03/05/17 0502 Results 24 hrs Laboratory Tests Test 03/05/17 05:02 White Blood Count 15.6 H Red Blood Count 3.87 L Hemoglobin 10.2 L Hematocrit 32.3 L Mean Corpuscular Volume 83.5 Mean Corpuscular Hemoglobin 26.4 L Mean Corpuscular Hemoglobin Concent 31.6 L Red Cell Distribution Width 18.2 H Platelet Count 625 H Mean Platelet Volume 12.2 H Neutrophils % 80.8 H Segmented Neutrophils % (Manual) 78 H Band Neutrophils % (Manual) 4 Lymphocytes % 8.6 L Lymphocytes % (Manual) 7 L Monocytes % 7.8 Monocytes % (Manual) 7 Eosinophils % 1.0 Eosinophils % (Manual) 3 Basophils % 0.4 Metamyelocytes % (manual) 1 H Nucleated Red Blood Cells % 0.0 Neutrophils # 12.6 H Neutrophils # (Manual) 12.3 H Band Neutrophils # 0.6 Absolute Lymphocytes (Manual) 1.0 Lymphocytes # 1.4 Monocytes # 1.2 H Absolute Monocytes (Manual) 1.0 H Eosinophils # 0.2 Basophils # 0.1 Metamyelocytes # 0.1 H Nucleated Red Blood Cells # 0.0 Platelet Estimate INCREASED Giant Platelets 1 H Polychromasia 1+ Hypochromasia 1+ Poikilocytosis 1+ Anisocytosis 1+ Sodium Level 142 Potassium Level 2.8 *L Chloride Level 99 Carbon Dioxide Level 28 Anion Gap 18 H Blood Urea Nitrogen 14 Creatinine 0.77 Glucose Level 85 Calcium Level 9.7 Magnesium Level 1.7 Medications Medications Current Medications Acetaminophen (Tylenol Tab) 650 mg Q6H PRN PO PAIN LEVEL 1-3 OR FEVER Last administered on 02/06/17 23:54; Admin Dose 650 MG; Start 01/22/17 at 16:00; Status Future Hold Docusate Sodium (Colace) 100 mg Q12H PRN PO CONSTIPATION; Start 01/22/17 at 16 :00 Magnesium Hydroxide (Milk Of Mag) 30 ml DAILY PRN PO CONSTIPATION Last administered on 01/31/17 07:38; Admin Dose 30 ML; Start 01/22/17 at 16:00 Bisacodyl (Dulcolax) 5 mg DAILY PRN PO CONSTIPATION Last administered on 04:05; Admin Dose 5 MG; Start 01/22/17 at 16:00 Sodium Biphosphate/ Sodium Phosphate (Fleet Enema) 133 ml DAILY PRN OR CONSTIPATION Last administered on 01/27/17 06:17; Admin Dose 133 ML; Start at 20:30 Morphine Sulfate 2 mg 2 mg Q2H PRN IV PAIN LEVEL 7-10 Last administered on 13:47; Admin Dose 2 MG; Start 01/28/17 at 14:00 Ondansetron HCl/ Dextrose (Zofran Inj/D5W) 54 ml @ 108 mls/hr Q6H PRN IV NAUSEA AND/OR VOMITING; Start 01/31/17 at 12:00 Acetaminophen (Tylenol Liquid) 650 mg Q4H PRN GTB PAIN AND OR ELEVATED TEMP Last administered on 02/06/17 16:19; Admin Dose 650 MG; Start 02/04/17 at 08:30 ; Status Future Hold Ondansetron HCl (Zofran Inj) 4 mg Q6H PRN IV NAUSEA AND/OR VOMITING Last administered on 02/24/17 04:29; Admin Dose 4 MG; Start 02/13/17 at 14:30 Furosemide (Lasix) 40 mg DAILY@06 PO Last administered on 03/05/17 05:07; Admin Dose 40 MG; Start 02/19/17 at 11:30 Enoxaparin Sodium (Lovenox) 65 mg Q12H SC Last administered on 03/05/17 16:39 ; Admin Dose 65 MG; Start 02/21/17 at 16:00 Lactobacillus Acidophilus/ Rhamnosus (Culturelle) 1 cap BID PO Last administered on 03/05/17 09:59; Admin Dose 1 CAP; Start 02/24/17 at 21:00 Megestrol Acetate (Megace Susp) 400 mg BID PO Last administered on 03/05/17 09:59; Admin Dose 400 MG; Start 02/24/17 at 16:00 Pantoprazole (Protonix Tab) 40 mg DAILY@06 PO Last administered on 03/05/17 05:07; Admin Dose 40 MG; Start 02/26/17 at 06:00 Hydromorphone HCl (Dilaudid) 0.5 mg Q2H PRN IV PAIN LEVEL 6-10 Last administered on 03/02/17 20:44; Admin Dose 0.5 MG; Start 02/28/17 at 23:30 Linezolid (Zyvox) 600 mg BID PO ; Start 03/05/17 at 21:00 Quetiapine Fumarate (Seroquel) 12.5 mg DAILY PO ; Start 03/05/17 at 18:00 Magnesium Oxide (Mag-Ox 400) 400 mg BID PO Last administered on 03/05/17 12: 04; Admin Dose 400 MG; Start 03/05/17 at 12:00 RAMIREZ YBARRA MD Mar 05, 2017 17:17
[2017-03-05] MEDS: QUETIAPINE 25 MG TAB PO SCH (17:25)
[2017-03-05 19:47] VITALS: BP 110/60; RESP 16
[2017-03-05] MEDS: ZYVOX 600 MG TAB PO SCH (20:33)
[2017-03-06 02:18] VITALS: BP 113/64; RESP 20
[2017-03-06] MEDS: ENOXAPARIN 80 MG/0.8 ML SYG SC SCH (05:03)
[2017-03-06 06:08] LABS: BASOPHIL # 0.1 10^3/ul (0.0-0.1); BASOPHILS % 0.4 % (0.0-2.0); EOSINOPHILS # 0.1 10^3/ul (0.0-0.5); HEMATOCRIT 29.6 % (37.0-47.0); HEMOGLOBIN 9.2 g/dl (12.0-16.0); LYMPHOCYTES # 1.1 10^3/ul (0.8-2.9); LYMPHOCYTES % 8.6 % (15.0-51.0); MEAN CORPUSCULAR HEMOGLOBIN 26.3 pg (29.0-33.0); MEAN CORPUSCULAR HGB CONC 31.1 g/dl (32.0-37.0); MEAN CORPUSCULAR VOLUME 84.6 fl (82.0-101.0); MEAN PLATELET VOLUME 12.3 fl (7.4-10.4); MONOCYTE # 1.3 10^3/ul (0.3-0.9); NEUTROPHIL # 10.1 10^3/ul (1.6-7.5); PLATELET COUNT 673 10^3/UL (140-415); RED CELL DISTRIBUTION WIDTH 18.7 % (11.5-14.5); WHITE BLOOD COUNT 12.8 10^3/ul (4.8-10.8)
[2017-03-06 06:35] LABS: CALCIUM 9.3 mg/dl (8.4-10.2); CREATININE 0.84 mg/dl (0.44-1.00); POTASSIUM 3.5 mmol/L (3.5-5.1)
[2017-03-06] MEDS: PANTOPRAZOLE (EC) 40 MG TAB PO SCH (06:42)
[2017-03-06] MEDS: FUROSEMIDE 40 MG TAB PO SCH (06:45)
[2017-03-06 07:40] VITALS: BP 125/77; RESP 16
[2017-03-06] MEDS: MEGESTROL (40 MG/ML) 10ML CUP PO SCH (08:52)
[2017-03-06] MEDS: MAGNESIUM OXIDE 400 MG TAB PO SCH (08:52)
[2017-03-06] MEDS: LACTOBACILLUS RHAMNOSUS CAP PO SCH (08:52)
[2017-03-06] MEDS: ZYVOX 600 MG TAB PO SCH (08:53)
[2017-03-06] MEDS: QUETIAPINE 25 MG TAB PO SCH (08:53)
[2017-03-06] MEDS ORDERED: QUET25TA33 PO (10:36)
[2017-03-06] MEDS ORDERED: DOCU-216 PO (10:36)
[2017-03-06] MEDS ORDERED: FURO40TA4 PO (10:36)
[2017-03-06] MEDS ORDERED: PANT40TA4 PO (10:36)
[2017-03-06] MEDS ORDERED: POTA-57 PO (10:36)
[2017-03-06] MEDS ORDERED: MAGN400T28 PO (10:36)
[2017-03-06] MEDS ORDERED: ENOX80DI10 SC (10:36)
[2017-03-06] MEDS ORDERED: LACT1CAP28 PO (10:36)
--- NOTE | 2017-03-06 10:39 | PDOCDIS ---
Discharge Instructions DIAGNOSIS Discharge Diagnosis Metastatic Ovarian Cancer Encephalopathy . CONDITION Patient Condition: Stable HOME CARE INSTRUCTIONS: Special Diet: MECHANICAL SOFT ACTIVITY: Activity Restrictions Comment: 24 hour monitoring and supervision FOLLOW UP/APPOINTMENTS Follow-up Plan Patient is to follow-up as soon as possible with her own oncologist Dr. Donis. Her son Noam is to set up a follow-up appointment. LILIANA HOUSTON Mar 06, 2017 10:39
--- NOTE | 2017-03-06 10:49 | DS ---
Date/Time of Note Date/Time of Note DATE: 03/06/17 TIME: 10:39 Discharge Summary Admission/Discharge Info Admit Date/Time Jan 22, 2017 at 14:12 Discharge Date/Time Discharge Diagnosis 56-year-old female with known stage IV ovarian cancer admitted originally for malignant ascites now status post debulking surgery as well as placement of bilateral JJ stents secondary to severe hydronephrosis and hydroureter. 1. Metastatic Ovarian Cancer 2. Encephalopathy 3. Status post sepsis with bacteremia as well as pelvic abscess status post drainage. 4. Bilateral pulmonary emboli . 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 Procedures Procedure Date: Jan 24, 2017 Preoperative Diagnosis Bilateral hydronephrosis right more than left, urinary retention, suspected of having stage IV ovarian cancer Postoperative Diagnosis Bilateral hydronephrosis right more than left, urinary retention, suspected of having stage IV ovarian cancer Operation/Procedure Performed Cystoscopy bilateral retrograde pyelograms and insertion of bilateral JJ stents 7 German by 28 cm long on the right, 7 German by 26 cm long on the left Surgeon: Krishna Name: Ania Sergei Medical Date: 02/02/17 Preoperative Diagnosis: 1- Pelvic mass and ascites 2- Elevated CA-125 3- Hydroureter 4- Severe pain Postoperative Diagnosis: 1- IIIc vs IV ovarian cancer; pathology pending widespread metastatic disease 2- Persistent hydroureter 3- Impending SBO and LBO 4- Persistent hydroureter Procedures: 1- En-bloc resection of pelvic disease; possible supracervical hysterectomy/ BSO 2- Bilateral ureteral dissection with repositioning 3- Omentectomy with cytoreduction 4- Spleenectomy 5- Diaphragm stripping 6- Enterolysis Surgeon: Dr. Ramirez . Hospital Course This 56-year-old female had presented to the emergency room with abdominal distention and pain, she has a known history of metastatic ovarian cancer which she was being managed as outpatient with her own oncologist Dr. Tyler. She was admitted for symptomatic ascites admitted for pain relief and paracentesis. However images showed that she was a severe urinary retention due to obstruction of her ureters by the mass, and urology consultation had to be obtained. She underwent cystoscopy and and placement of bilateral JJ stents that relieve the urinary retention. She was seen by oncology as well as gynecology surgery and underwent debulking surgery of the tumor. Postoperative course was complicated by sepsis secondary to bacteremia and she had to be treated for a long time with IV antibiotics. She has also found to have bilateral pulmonary emboli and underwent a protracted course in the hospital. At this time the end of her hospitalization, she with a retained confusion that is thought to be due to an encephalopathy, however a detailed MRI neurology review and psychiatric review have revealed no organic cause. However symptoms have been moderately controlled by the use of low-dose Seroquel. Of note is that the oncologist in-house as well as a gynecologic surgeon strongly recommended chemotherapy for this patient, as discount of cancer is known to respond to chemo; however at the patient's son who is her decision maker based on her encephalopathy adamantly refused. We had multiple meetings with him explained the benefits of chemo explained the risk of but he continued to refuse his only reason being that he does not trust chemotherapy. He stated that the patient had been under the care of an oncologist outpatient and they were having a good relationship and they (patient and her son) liked the therapy that was being administered at that situation. Hence the decision was to discharge patient back to the care of her own oncologist, for further management. However at time of discharge the patient's family was fully aware and cognizant of the risks of refusing chemo and possible benefits that chemo may offer the patient. Unfortunately patient was in no states to make her own decision regarding chemotherapy. Patient is stable at this time, all drains have been removed, she is tolerating a soft diet, she is having good urinary output, she is being discharged to the care of her family. Of note is that family also refused detention facility placement. Home Meds Active Scripts Pantoprazole* (Pantoprazole*) 40 Mg Tablet., 40 MG PO DAILY@06 for 14 Days, # 28 TAB Prov:ROSEMARIESANNA. 03/06/17 Magnesium Oxide* (Magnesium Oxide*) 400 Mg Tablet, 400 MG PO BID for 14 Days, # 28 TAB Prov:ALISTAIR. 03/06/17 Potassium Chloride* (Klor-Con*) 20 Meq Tabsr, 20 MEQ PO DAILY for 7 Days, #7 TAB.SA Prov:ROSEMARIEALISTAIR. 03/06/17 Furosemide* (Furosemide*) 40 Mg Tablet, 40 MG PO DAILY@06 for 7 Days, #7 TAB Prov[facility]MAR[facility]. 03/06/17 Lactobacillus Rhamnosus GG (Culturelle) 1 Each Capsule, 1 CAP PO BID for 14 Days , #28 CAP Prov:ROSEMARIE. 03/06/17 Docusate Sodium (Dok) 100 Mg Capsule, 100 MG PO Q12H for 30 Days, #60 CAP 2 Refills Prov:ROSEMARIESANNA. 03/06/17 Quetiapine Fumarate* (Quetiapine Fumarate*) 25 Mg Tablet, 12.5 MG PO DAILY for 30 Days, #15 TAB 2 [facility] 03/06/17 Enoxaparin Sodium (Enoxaparin Sodium) 80 Mg/0.8 Ml Syringe, 65 MG SC Q12H for 30 Days, #60 VIAL 2 Refills Prov:SANNA HOUSTONPietro . 03/06/17 Follow-up Plan Patient is to follow-up as soon as possible with her own oncologist Dr. Donis and our recommendation is for chemotherapy. Her son Noam is to set up a follow-up appointment. Also followup with your PCP in 1-2 weeks to notify them of events during your hospitalization and any medication changes. . Primary Care Provider James Chaparro Time spent on discharge: > 30 minutes Pending Labs Laboratory Tests Test 03/06/17 04:25 White Blood Count 12.810^3/ul (4.8-10.8) Red Blood Count 3.5010^6/ul (4.20-5.40) Hemoglobin 9.2g/dl (12.0-16.0) Hematocrit 29.6% (37.0-47.0) Mean Corpuscular Volume 84.6fl (82.0-101.0) Mean Corpuscular Hemoglobin 26.3pg (29.0-33.0) Mean Corpuscular Hemoglobin Concent 31.1g/dl (32.0-37.0) Red Cell Distribution Width 18.7% (11.5-14.5) Platelet Count 29579^3/UL (140-415) Mean Platelet Volume 12.3fl (7.4-10.4) Neutrophils % 79.0% (39.0-77.0) Lymphocytes % 8.6% (15.0-51.0) Monocytes % 10.0% (0.0-11.0) Eosinophils % 1.0% (0.0-7.0) Basophils % 0.4% (0.0-2.0) Nucleated Red Blood Cells % 0.0/100WBC (0.0-0.0) Neutrophils # 10.110^3/ul (1.6-7.5) Lymphocytes # 1.110^3/ul (0.8-2.9) Monocytes # 1.310^3/ul (0.3-0.9) Eosinophils # 0.110^3/ul (0.0-0.5) Basophils # 0.110^3/ul (0.0-0.1) Nucleated Red Blood Cells # 0.010^3/ul (0.0-0.0) Sodium Level 141mmol/L (135-144) Potassium Level 3.5mmol/L (3.5-5.1) Chloride Level 101mmol/L (97-110) Carbon Dioxide Level 29mmol/L (21-31) Anion Gap 15 (8-16) Blood Urea Nitrogen 15mg/dl (7-20) Creatinine 0.84mg/dl (0.44-1.00) Glucose Level 80mg/dl (70-220) Calcium Level 9.3mg/dl (8.4-10.2) LILIANA HOUSTON Mar 06, 2017 10:49
--- NOTE | 2017-03-06 11:17 | CONS ---
Date/Time of Note Date/Time of Note DATE: 03/06/17 TIME: : Assessment/Plan Assessment/Plan Chief Complaint/Hosp Course ADVANCED OVARIAN CANCER WITH MALIGNANT ASCITES AND PERITONEAL carcinomatosis- Stage IIIc - IV ovarian cancer Large conglomerate pelvic mass inseparable from the uterus, sigmoid colon and rectum containing clumps of calcification suspicious for calcified fibroids and containing cystic areas. Large amount of free intraperitoneal fluid measuring 25 HU with caking of the omentum compatible with carcinomatosis. Centralization of bowel without evidence of bowel obstruction. Moderately severe right hydronephrosis and hydroureter to the level of the pelvic mass. There is moderate left pelvocaliectasis without ureteral dilatation. The bladder is quite distended with urine. POST cystoscopy and insertion of bilateral JJ stents. PER DR ABRAMS-If she gets better and respond to treatment then later on in the future she will need the stents removed and may be replaced CT CHEST - EDOUARD, EXCEPT SMALL L PLEURAL EFFUSION CA 125- 337 POST debulking surgery PATH- T3N0M1 High grade serous carcinoma. D/W SON- HE IS REFUSING CHEMO POST IVC filter UNABLE TO PROCEED WITH CHEMO 2 TO SEPSIS/BACTEREMIA AND CONFUSION/ AMS D/W DR HOUSTON- PT IS CONFUSED, SON DOESN'T WANT CHEMO D/W SON- HE IS REFUSING CHEMO FOR NOW, AND HE IS TELLING THAT PT HAS OUTPT ONCOLOGIST WITH WHOM HE WANT TO HAVE A F-UP POST DC HE WANT TO PT TO BE DC HOME ANEMIA, MICROCYTOSIS COMPLEX ANEMIA W-UP= + COMPONENT ACD DROP H/H POSTOP SERIAL H/H PRBC NEEDED PER STANDING ORDERS D/W RN LEUKOCYTOSIS REACTIVE, PARTIALLY 2 TO Splenectomy, partially 2 to infection CONFUSION NEURO F-UP MRI BRAIN- NO METS Recurrent Sepsis w/FEVER > 102 on 02/19 + leukocytosis => LINE sepsis, line removed * s/p Septic shock with fevers > 102.+ on admission, leukocytosis Bacteremia with blood culture growing gram-positive cocci=> Line DC;d * 02/19 -> BCx (+)Staph aureus, repeat BC x 02/20 (+)GPC -> TLC removed PELVIC ABSCESS- POST DRAINAGE malignant ascites sp para 10.19. hydro AUR from ascites, sp ureteral stenting. ILEUS NG TPN Problems: Consultation Date/Type/Reason Admit Date/Time Jan 22, 2017 at 14:12 Initial Consult Date 01/27/17 Type of Consultation: [facility] Referring Provider: DAYANARA BROWN MD Exam/Review of Systems Vital Signs Vitals Vital Signs Date Time Temp Pulse Resp B/P Pulse Ox O2 Delivery O2 Flow Rate FiO2 03/06/17 07:40 98.0 95 16 125/77 99 03/02/17 08:28 Room Air Intake and Output 03/05/17 03/05/17 03/06/17 15:00 23:00 07:00 Intake Total 520 ml 320 ml Balance 520 ml 320 ml Results Result Diagram: 03/06/17 0425 03/06/17 0425 Results 24 hrs Laboratory Tests Test 03/06/17 04:25 White Blood Count 12.8 H Red Blood Count 3.50 L Hemoglobin 9.2 L Hematocrit 29.6 L Mean Corpuscular Volume 84.6 Mean Corpuscular Hemoglobin 26.3 L Mean Corpuscular Hemoglobin Concent 31.1 L Red Cell Distribution Width 18.7 H Platelet Count 673 H Mean Platelet Volume 12.3 H Neutrophils % 79.0 H Lymphocytes % 8.6 L Monocytes % 10.0 Eosinophils % 1.0 Basophils % 0.4 Nucleated Red Blood Cells % 0.0 Neutrophils # 10.1 H Lymphocytes # 1.1 Monocytes # 1.3 H Eosinophils # 0.1 Basophils # 0.1 Nucleated Red Blood Cells # 0.0 Sodium Level 141 Potassium Level 3.5 Chloride Level 101 Carbon Dioxide Level 29 Anion Gap 15 Blood Urea Nitrogen 15 Creatinine 0.84 Glucose Level 80 Calcium Level 9.3 Medications Medications Current Medications Acetaminophen (Tylenol Tab) 650 mg Q6H PRN PO PAIN LEVEL 1-3 OR FEVER Last administered on 02/06/17 23:54; Admin Dose 650 MG; Start 01/22/17 at 16:00; Status Future Hold Docusate Sodium (Colace) 100 mg Q12H PRN PO CONSTIPATION; Start 01/22/17 at 16 :00 Magnesium Hydroxide (Milk Of Mag) 30 ml DAILY PRN PO CONSTIPATION Last administered on 01/31/17 07:38; Admin Dose 30 ML; Start 01/22/17 at 16:00 Bisacodyl (Dulcolax) 5 mg DAILY PRN PO CONSTIPATION Last administered on 04:05; Admin Dose 5 MG; Start 01/22/17 at 16:00 Sodium Biphosphate/ Sodium Phosphate (Fleet Enema) 133 ml DAILY PRN [place] CONSTIPATION Last administered on 01/27/17 06:17; Admin Dose 133 ML; Start at 20:30 Morphine Sulfate 2 mg 2 mg Q2H PRN IV PAIN LEVEL 7-10 Last administered on 13:47; Admin Dose 2 MG; Start 01/28/17 at 14:00 Ondansetron HCl/ Dextrose (Zofran Inj/D5W) 54 ml @ 108 mls/hr Q6H PRN IV NAUSEA AND/OR VOMITING; Start 01/31/17 at 12:00 Acetaminophen (Tylenol Liquid) 650 mg Q4H PRN GTB PAIN AND OR ELEVATED TEMP Last administered on 02/06/17 16:19; Admin Dose 650 MG; Start 02/04/17 at 08:30 ; Status Future Hold Ondansetron HCl (Zofran Inj) 4 mg Q6H PRN IV NAUSEA AND/OR VOMITING Last administered on 02/24/17 04:29; Admin Dose 4 MG; Start 02/13/17 at 14:30 Furosemide (Lasix) 40 mg DAILY@06 PO Last administered on 03/06/17 06:45; Admin Dose 40 MG; Start 02/19/17 at 11:30 Enoxaparin Sodium (Lovenox) 65 mg Q12H SC Last administered on 03/06/17 05:03 ; Admin Dose 65 MG; Start 02/21/17 at 16:00 Lactobacillus Acidophilus/ Rhamnosus (Culturelle) 1 cap BID PO Last administered on 03/06/17 08:52; Admin Dose 1 CAP; Start 02/24/17 at 21:00 Megestrol Acetate (Megace Susp) 400 mg BID PO Last administered on 03/06/17 08 :52; Admin Dose 400 MG; Start 02/24/17 at 16:00 Pantoprazole (Protonix Tab) 40 mg DAILY@06 PO Last administered on 03/06/17 06 :42; Admin Dose 40 MG; Start 02/26/17 at 06:00 Hydromorphone HCl (Dilaudid) 0.5 mg Q2H PRN IV PAIN LEVEL 6-10 Last administered on 03/02/17 20:44; Admin Dose 0.5 MG; Start 02/28/17 at 23:30 Linezolid (Zyvox) 600 mg BID PO Last administered on 03/06/17 08:53; Admin Dose 600 MG; Start 03/05/17 at 21:00 Quetiapine Fumarate (Seroquel) 12.5 mg DAILY PO Last administered on 03/06/17 08:53; Admin Dose 12.5 MG; Start 03/05/17 at 18:00 Magnesium Oxide (Mag-Ox 400) 400 mg BID PO Last administered on 03/06/17 08:52 ; Admin Dose 400 MG; Start 03/05/17 at 12:00 RAMIREZ YBARRA MD Mar 06, 2017 11:17
--- NOTE | 2017-03-06 13:07 | CONS ---
Date/Time of Note Date/Time of Note DATE: 03/06/17 TIME: 13:07 Assessment/Plan Assessment/Plan Chief Complaint/Hosp Course SUBJECTIVE: No acute events overnight. The patient is alert, looks comfortable, no fevers. INDWELLINGS: none ANTIMICROBIALS: Zyvox PHYSICAL EXAMINATION: GENERAL: This is a cachectic, wasted, well-developed, middle-aged woman who is in no distress. HEENT: Head atraumatic, normocephalic. Sclerae anicteric. Buccal mucosa dry. NECK: Supple. CHEST: Rise symmetrical. Breath sounds diminished to bases. HEART: S1, S2. ABDOMEN: Soft, bowel tones present. EXTREMITIES: No cyanosis. ASSESSMENT: 1. S/p systemic inflammatory response syndrome 2. S/p coagulase-negative staph bacteremia, status post triple lumen catheter discontinued, repeat blood cultures negative. 3. Metastatic ovarian cancer status post ureteral dissection, appendectomy with splenectomy and cytoreduction on 02/02/2017. 4. Status post alpha hemolytic strep urinary tract infection. 5. Bilateral hydronephrosis, status post JJ stent insertion on 01/30/2017. 6. Anemia. 7. Status post respiratory failure. 8. Status post CT-guided drainage of intra-abdominal abscess on 02/10/2017. PLAN: The patient remains stable, completing abx DW staff Problems: Consultation Date/Type/Reason Admit Date/Time Jan 22, 2017 at 14:12 Initial Consult Date 02/03/17 Type of Consultation: id Referring Provider: DAYANARA BROWN MD Exam/Review of Systems Vital Signs Vitals Vital Signs Date Time Temp Pulse Resp B/P Pulse Ox O2 Delivery O2 Flow Rate FiO2 03/06/17 07:40 98.0 95 16 125/77 99 03/02/17 08:28 Room Air Intake and Output 03/05/17 03/05/17 03/06/17 15:00 23:00 07:00 Intake Total 520 ml 320 ml Balance 520 ml 320 ml Results Result Diagram: 03/06/17 0425 03/06/17 0425 Results 24 hrs Laboratory Tests Test 03/06/17 04:25 White Blood Count 12.8 H Red Blood Count 3.50 L Hemoglobin 9.2 L Hematocrit 29.6 L Mean Corpuscular Volume 84.6 Mean Corpuscular Hemoglobin 26.3 L Mean Corpuscular Hemoglobin Concent 31.1 L Red Cell Distribution Width 18.7 H Platelet Count 673 H Mean Platelet Volume 12.3 H Neutrophils % 79.0 H Lymphocytes % 8.6 L Monocytes % 10.0 Eosinophils % 1.0 Basophils % 0.4 Nucleated Red Blood Cells % 0.0 Neutrophils # 10.1 H Lymphocytes # 1.1 Monocytes # 1.3 H Eosinophils # 0.1 Basophils # 0.1 Nucleated Red Blood Cells # 0.0 Sodium Level 141 Potassium Level 3.5 Chloride Level 101 Carbon Dioxide Level 29 Anion Gap 15 Blood Urea Nitrogen 15 Creatinine 0.84 Glucose Level 80 Calcium Level 9.3 Medications Medications Current Medications Acetaminophen (Tylenol Tab) 650 mg Q6H PRN PO PAIN LEVEL 1-3 OR FEVER Last administered on 02/06/17 23:54; Admin Dose 650 MG; Start 01/22/17 at 16:00; Status Future Hold Docusate Sodium (Colace) 100 mg Q12H PRN PO CONSTIPATION; Start 01/22/17 at 16 :00 Magnesium Hydroxide (Milk Of Mag) 30 ml DAILY PRN PO CONSTIPATION Last administered on 01/31/17 07:38; Admin Dose 30 ML; Start 01/22/17 at 16:00 Bisacodyl (Dulcolax) 5 mg DAILY PRN PO CONSTIPATION Last administered on 04:05; Admin Dose 5 MG; Start 01/22/17 at 16:00 Sodium Biphosphate/ Sodium Phosphate (Fleet Enema) 133 ml DAILY PRN MT CONSTIPATION Last administered on 01/27/17 06:17; Admin Dose 133 ML; Start at 20:30 Morphine Sulfate 2 mg 2 mg Q2H PRN IV PAIN LEVEL 7-10 Last administered on 13:47; Admin Dose 2 MG; Start 01/28/17 at 14:00 Ondansetron HCl/ Dextrose (Zofran Inj/D5W) 54 ml @ 108 mls/hr Q6H PRN IV NAUSEA AND/OR VOMITING; Start 01/31/17 at 12:00 Acetaminophen (Tylenol Liquid) 650 mg Q4H PRN GTB PAIN AND OR ELEVATED TEMP Last administered on 02/06/17 16:19; Admin Dose 650 MG; Start 02/04/17 at 08:30 ; Status Future Hold Ondansetron HCl (Zofran Inj) 4 mg Q6H PRN IV NAUSEA AND/OR VOMITING Last administered on 02/24/17 04:29; Admin Dose 4 MG; Start 02/13/17 at 14:30 Furosemide (Lasix) 40 mg DAILY@06 PO Last administered on 03/06/17 06:45; Admin Dose 40 MG; Start 02/19/17 at 11:30 Enoxaparin Sodium (Lovenox) 65 mg Q12H SC Last administered on 03/06/17 05:03 ; Admin Dose 65 MG; Start 02/21/17 at 16:00 Lactobacillus Acidophilus/ Rhamnosus (Culturelle) 1 cap BID PO Last administered on 03/06/17 08:52; Admin Dose 1 CAP; Start 02/24/17 at 21:00 Megestrol Acetate (Megace Susp) 400 mg BID PO Last administered on 03/06/17 08 :52; Admin Dose 400 MG; Start 02/24/17 at 16:00 Pantoprazole (Protonix Tab) 40 mg DAILY@06 PO Last administered on 03/06/17 06 :42; Admin Dose 40 MG; Start 02/26/17 at 06:00 Hydromorphone HCl (Dilaudid) 0.5 mg Q2H PRN IV PAIN LEVEL 6-10 Last administered on 03/02/17 20:44; Admin Dose 0.5 MG; Start 02/28/17 at 23:30 Linezolid (Zyvox) 600 mg BID PO Last administered on 03/06/17 08:53; Admin Dose 600 MG; Start 03/05/17 at 21:00 Quetiapine Fumarate (Seroquel) 12.5 mg DAILY PO Last administered on 03/06/17 08:53; Admin Dose 12.5 MG; Start 03/05/17 at 18:00 Magnesium Oxide (Mag-Ox 400) 400 mg BID PO Last administered on 03/06/17 08:52 ; Admin Dose 400 MG; Start 03/05/17 at 12:00 CARLOS SOLIZ NP Mar 06, 2017 13:07
[2017-03-06 14:00] VITALS: BP 123/81; RESP 16
== END 2017-03-06 15:36 | disposition home or self-care (01) | DRG 736 ==
LOC: E/R 11:05 → MS4 14:12 → ICU 02-02 17:39 → TEL 02-09 11:42 → PP2 02-18 19:10
PROVIDERS: ADMIT Internal Medicine; ATTEND Internal Medicine
PROC: 0W9G3ZZ Drainage of Peritoneal Cavity, Percutaneous Approach (ICD-10-PCS; 2017-01-22)
PROC: 0D5 Gastrointestinal System, Destruction (ICD-10-PCS; 2017-02-02)
PROC: 0UT90ZL Resection of Uterus, Supracervical, Open Approach (ICD-10-PCS; 2017-02-02)
PROC: 07TP0ZZ Resection of Spleen, Open Approach (ICD-10-PCS; 2017-02-02)
PROC: 0D5W0ZZ Destruction of Peritoneum, Open Approach (ICD-10-PCS; 2017-02-02)
PROC: 0T5 Urinary System, Destruction (ICD-10-PCS; 2017-02-02)
PROC: 0D580ZZ Destruction of Small Intestine, Open Approach (ICD-10-PCS; 2017-02-02)
PROC: 0UT70ZZ Resection of Bilateral Fallopian Tubes, Open Approach (ICD-10-PCS; 2017-02-02)
PROC: 07BC0ZZ Excision of Pelvis Lymphatic, Open Approach (ICD-10-PCS; 2017-02-02)
PROC: 0DTU0ZZ Resection of Omentum, Open Approach (ICD-10-PCS; 2017-02-02)
PROC: 0TN70ZZ Release Left Ureter, Open Approach (ICD-10-PCS; 2017-02-02)
PROC: 0TN60ZZ Release Right Ureter, Open Approach (ICD-10-PCS; 2017-02-02)
PROC: 0TNB0ZZ Release Bladder, Open Approach (ICD-10-PCS; 2017-02-02)
PROC: 0BBT0ZZ Excision of Diaphragm, Open Approach (ICD-10-PCS; 2017-02-02)
PROC: 0TS80ZZ Reposition Bilateral Ureters, Open Approach (ICD-10-PCS; 2017-02-02)
PROC: 0T788DZ Dilation of Bilateral Ureters with Intraluminal Device, Via Natural or Artificial Opening Endoscopic (ICD-10-PCS; 2017-02-02)
PROC: 30233N1 Transfusion of Nonautologous Red Blood Cells into Peripheral Vein, Percutaneous Approach (ICD-10-PCS; 2017-02-02)
PROC: 30233K1 Transfusion of Nonautologous Frozen Plasma into Peripheral Vein, Percutaneous Approach (ICD-10-PCS; 2017-02-02)
PROC: 5A1945Z Respiratory Ventilation, 24-96 Consecutive Hours (ICD-10-PCS; 2017-02-02)
PROC: 0UT20ZZ Resection of Bilateral Ovaries, Open Approach (ICD-10-PCS; principal; 2017-02-02 10:30)
PROC: 0W9F30Z Drainage of Abdominal Wall with Drainage Device, Percutaneous Approach (ICD-10-PCS; 2017-02-09)
PROC: 06H03DZ Insertion of Intraluminal Device into Inferior Vena Cava, Percutaneous Approach (ICD-10-PCS; 2017-02-12)
DX: C56.2 Malignant neoplasm of left ovary (principal); I26.99 Other pulmonary embolism without acute cor pulmonale; J96.91 Respiratory failure, unspecified with hypoxia; R65.21 Severe sepsis with septic shock; A41.1 Sepsis due to other specified staphylococcus; R18.0 Malignant ascites; J90 Pleural effusion, not elsewhere classified; K65.1 Peritoneal abscess; G93.40 Encephalopathy, unspecified; J18.9 Pneumonia, unspecified organism; C78.6 Secondary malignant neoplasm of retroperitoneum and peritoneum; E87.0 Hyperosmolality and hypernatremia; R64 Cachexia; K56.7 Ileus, unspecified; R65.10 Systemic inflammatory response syndrome (SIRS) of non-infectious origin without acute organ dysfunction; N13.1 Hydronephrosis with ureteral stricture, not elsewhere classified; N39.0 Urinary tract infection, site not specified; F05 Delirium due to known physiological condition; T82.7XXA Infection and inflammatory reaction due to other cardiac and vascular devices, implants and grafts, initial encounter; E44.0 Moderate protein-calorie malnutrition; C56.1 Malignant neoplasm of right ovary; D50.9 Iron deficiency anemia, unspecified; Z68.25 Body mass index [BMI] 25.0-25.9, adult; R07.9 Chest pain, unspecified; K76.0 Fatty (change of) liver, not elsewhere classified; K80.20 Calculus of gallbladder without cholecystitis without obstruction; R33.8 Other retention of urine; D72.828 Other elevated white blood cell count; B95.0 Streptococcus, group A, as the cause of diseases classified elsewhere; D64.9 Anemia, unspecified
CPT/HCPCS: 36415; 36430; 36600; 37191; 70551; 70553; 71010; 71275; 74000; 74177; 74430; 75940; 76536; 76775; 77012; 80048; 80053; 80202; 81001; 82042; 82270; 82306; 82565; 82607; 82728; 82746; 82803; 82962; 83540; 83605; 83615; 83735; 84100; 84134; 84157; 84439; 84443; 84478; 84484; 84520; 84560; 85014; 85018; 85025; 85049; 85362; 85378; 85384; 85610; 85670; 85730; 86304; 86644; 86850; 86900; 86901; 86920; 87040; 87070; 87075; 87081; 87086; 87102; 87116; 88104; 88305; 88307; 88331; 88341; 88342; 89051; 92526; 92610; 93005; 93971; 94002; 94003; 94770; 96365; 96375; 96376; 97003; 97110; 97116; 97163; 97166; 97530; 97535; J1940; C1880; C2617; J0131; J0171; J0690; J0692; J0696; J1100; J1170; J1200; J1265; J1630; J1644; J1650; J1885; J2060; J2250; J2270; J2370; J2405; J2543; J2710; J2916; J3010; J3370; J3475; J3480; J7030; J7040; J7050; J7060; J7070; J7120; P9016; P9045; P9059; Q9967

== ENCOUNTER 2017-03-14 09:37 | Inpatient (IN) | payer OTHER ==
[~2017-03-14] VITALS: Ht 160 cm; Wt 50.0 kg
[~2017-03-14 09:37] MED LIST changes: +DOCU-216 PO; +ENOX80DI10 SC; +FURO40TA4 PO; -HYDR-902 PO; -IBUP-1542 PO; +LACT1CAP28 PO; +MAGN400T28 PO; +PANT40TA4 PO; +POTA-57 PO; +QUET25TA33 PO
[2017-03-14] MEDS ORDERED: ONDANSETRON 4 MG INJ IV STA (09:58)
[2017-03-14] MEDS ORDERED: SOD CHLORIDE 0.9% 1,000 ML IV STA (09:58)
[2017-03-14] MEDS ORDERED: morphine 4 MG/ML VIAL IV STA ×2 (09:58→20:03)
[2017-03-14 10:23] LABS: BASOPHIL # 0.1 10^3/ul (0.0-0.1); BASOPHILS % 0.6 % (0.0-2.0); EOSINOPHILS # 0.2 10^3/ul (0.0-0.5); EOSINOPHILS % 1.8 % (0.0-7.0); HEMATOCRIT 32.6 % (37.0-47.0); HEMOGLOBIN 10.1 g/dl (12.0-16.0); LYMPHOCYTES # 0.7 10^3/ul (0.8-2.9); LYMPHOCYTES % 8.6 % (15.0-51.0); MEAN CORPUSCULAR HEMOGLOBIN 26.6 pg (29.0-33.0); MEAN PLATELET VOLUME 10.8 fl (7.4-10.4); MONOCYTE # 0.7 10^3/ul (0.3-0.9); MONOCYTES % 8.6 % (0.0-11.0); NEUTROPHIL # 6.8 10^3/ul (1.6-7.5); NEUTROPHILS % 79.8 % (39.0-77.0); PLATELET COUNT 709 10^3/UL (140-415); RED BLOOD COUNT 3.79 10^6/ul (4.20-5.40); RED CELL DISTRIBUTION WIDTH 18.6 % (11.5-14.5); WHITE BLOOD COUNT 8.5 10^3/ul (4.8-10.8)
--- NOTE | 2017-03-14 10:39 | RADRPT ---
PROCEDURE: XR Chest. CLINICAL INDICATION: Abdominal Pain TECHNIQUE: Frontal chest x-ray was obtained. COMPARISON: None. FINDINGS: Heart is not enlarged. Mediastinum is not widened. No hilar masses seen. Lungs are clear of any infi ltrates. There is no effusion or pneumothorax. IMPRESSION: No evidence for active cardiopulmonary disease. .Allan Buitrago MD, MD Date Time Electronically viewed and signed by .Allan Buitrago MD, MD on 03/14/2017 10:38 .A/
[2017-03-14 10:42] LABS: ALANINE AMINOTRANSFERASE 42 IU/L (13-69); ALBUMIN 3.5 g/dl (3.3-4.9); ALKALINE PHOSPHATASE 120 IU/L (42-121); ANION GAP 14 (8-16); ASPARTATE AMINO TRANSFERASE 20 IU/L (15-46); BLOOD UREA NITROGEN 17 mg/dl (7-20); CALCIUM 9.5 mg/dl (8.4-10.2); CARBON DIOXIDE 28 mmol/L (21-31); CHLORIDE 104 mmol/L (97-110); CREATININE 0.79 mg/dl (0.44-1.00); GLUCOSE 118 mg/dl (70-220); POTASSIUM 3.9 mmol/L (3.5-5.1); SODIUM 142 mmol/L (135-144)
[2017-03-14 10:47] LABS: INR 0.92; PROTIME 12.4 Sec (11.9-14.9)
[2017-03-14 10:48] LABS: PARTIAL THROMBOPLASTIN TIME 26.9 Sec (25.0-35.0)
[2017-03-14] MEDS ORDERED: SOD CHLORIDE 0.9% 100 ML ONE (10:55)
[2017-03-14] MEDS ORDERED: IOHEXOL 100 ML ONE (10:55)
[2017-03-14 10:58] LABS: TROPONIN-I < 0.012 ng/ml (0.00-0.12)
--- NOTE | 2017-03-14 11:43 | RADRPT ---
PROCEDURE: CTA Chest, abdomen and pelvis. CLINICAL INDICATION: Ovarian cancer. Shortness of breath. TECHNIQUE: The study was performed utilizing a multidetector CT scanner. Direct spiral 1 mm axial sections were obtained from the thoracic inlet to the inferior pubic rami with the use of 100 cc of Omnipaque 350 nonionic intravenous contrast material and reformatted at 3 mm. Coronal, sagittal and 3-D angiographic reformations were obtained. The images were reviewed on a PACS workstation. DICOM images are available. One or more of the following dose reduction techniques were utilized: 1.) Automated exposure control 2.) Adjustment of the mA +/- kV according to patient's size 3.) Use of iterative reconstruction technique. CT D I 63 mCi. Dose 403 mCi per centimeter COMPARISON: CT abdomen pelvis February 14, [address] pulmonary angiogram February 09. The FINDINGS: Chest - there is occlusive thrombus within the segmental arteries supplying the anterior basal segme nt of the right lower lobe. No other central or peripheral pulmonary embolism is present. The other bilateral pulmonary emboli seen on the recent prior study have resorbed. Thoracic aorta is normal wi th no aneurysm or dissection. No hilar or mediastinal adenopathy or mass is seen. There is a tiny le ft pleural effusion. No right pleural effusion or pericardial effusion is present. Noted is a ill-de fined region of consolidation which is pleural based in the anterior basal segment of the right lowe r lobe compatible with a small infarct. No other lung infiltrate or mass is present. There is no pne umothorax. No supraclavicular, internal mammary chain or axillary adenopathy is present. The osseous structures are intact. Abdomen pelvis - the liver is unremarkable. There is diffuse edema of the gallbladder. No stones are detected. There is no intrahepatic ductal dilatation. The spleen has been removed. No adrenal or pa ncreatic abnormality is present. Kidneys enhance symmetrically with no calculus or mass. Noted are b ilateral double-J ureteral stents. There is moderate right hydronephrosis with a distended extrarena l pelvis and mild dilatation of a left extrarenal pelvis. Ureters are of normal caliber with no ston e. No bladder masses stone is present. There is an IVC filter. Patency of the inferior vena cava is indeterminate due to the timing of the contrast. There is a large complex solid and cystic partially calcified mass arising out of the pelvis. This measures approximately 11.1 x 11.4 x 823 cm. This colby s increased in size since the prior study and is consistent with progression of known ovarian cancer . Small volume of ascites is seen. No bowel mass or obstruction is present and there is no pneumoperitoneum. The osseous structures are without evidence of lytic or blastic lesions. IMPRESSION: Occlusive thrombus branch right pulmonary artery supplying the anterior basal segment with small inf arct. Interval lysis of previously noted bilateral pulmonary emboli. Enlarging pelvic mass compatible with progression of known ovarian cancer. Small volume ascites. Persistent right hydroureter nephrosis with mild dilatation left intrarenal collecting system despit e double-J ureteral stents. Post splenectomy. .Allan Buitrago MD, MD Date Time Electronically viewed and signed by .Allan Buitrago MD, MD on 03/14/2017 11:42 .A/
[2017-03-14] MEDS ORDERED: ENOXAPARIN 40 MG/0.4 ML SYG SC ONE (13:00)
--- NOTE | 2017-03-14 13:58 | ERD ---
ER Documentation Chief Complaint Chief Complaint vag bleed x 2 days with dizziness , s/p hysterectomy for ovarian ca HPI This is a 56-year-old female with a history of ovarian cancer with unknown status, possibly metastatic who presents with multiple complaints. She notes some vaginal bleeding. She is status post hysterectomy in the past. She denies any lightheadedness but does describe chest pain or shortness of breath and is found to have tachycardia. She denies history of pulmonary embolism. She states that she is supposed to be taking Lovenox but has not been taking over the past several weeks because of insurance issues. No fevers or chills. ROS All systems reviewed and are negative except as per history of present illness. Medications Home Meds Active Scripts Pantoprazole* (Pantoprazole*) 40 Mg Tablet.dr, 40 MG PO DAILY@06 for 14 Days, # 28 TAB Prov:LILIANA HOUSTON . 03/06/17 Magnesium Oxide* (Magnesium Oxide*) 400 Mg Tablet, 400 MG PO BID for 14 Days, # 28 TAB Prov:ROSEMARIEIGNACIA 03/06/17 Potassium Chloride* (Klor-Con*) 20 Meq Tabsr, 20 MEQ PO DAILY for 7 Days, #7 TAB.SA Prov:LILIANA HOUSTON 03/06/17 Furosemide* (Furosemide*) 40 Mg Tablet, 40 MG PO DAILY@06 for 7 Days, #7 TAB Prov:LILIANA HOUSTON . 03/06/17 Lactobacillus Rhamnosus GG (Culturelle) 1 Each Capsule, 1 CAP PO BID for 14 Days , #28 CAP Prov:LILIANA HOUSTON 03/06/17 Docusate Sodium (Dok) 100 Mg Capsule, 100 MG PO Q12H for 30 Days, #60 CAP 2 Refills Prov:LILIANA HOUSTON Meena 03/06/17 Quetiapine Fumarate* (Quetiapine Fumarate*) 25 Mg Tablet, 12.5 MG PO DAILY for 30 Days, #15 TAB 2 Refills Prov:LILIANA HOUSTON 03/06/17 Enoxaparin Sodium (Enoxaparin Sodium) 80 Mg/0.8 Ml Syringe, 65 MG SC Q12H for 30 Days, #60 VIAL 2 Refills Prov:LILIANA HOUSTON Meena 03/06/17 Allergies Allergies: Coded Allergies: No Known Allergy (Unverified , 03/14/17) PMhx/Soc Medical and Surgical Hx: pt denies Medical Hx, pt denies Surgical Hx History of Surgery: Yes (Foot surgery) Anesthesia Reaction: Yes (Anxiety when anesthesia is first starting) Hx Neurological Disorder: No Hx Respiratory Disorders: Yes (SOB, ascites) Hx Cardiac Disorders: No Hx Psychiatric Problems: No Hx Miscellaneous Medical Probl: Yes (STAGR 4 OVARIAN CANCER) Hx Alcohol Use: No Hx Substance Use: No Hx Tobacco Use: No Smoking Status: Never smoker FmHx Family History: No diabetes Physical Exam Vitals Vital Signs Date Time Temp Pulse Resp B/P Pulse Ox O2 Delivery O2 Flow Rate FiO2 03/14/17 09:40 98.2 122 18 112/74 98 Physical Exam General: Well developed, well nourished, no acute distress Head: Normocephalic, atraumatic. Eyes: Pupils equally reactive, EOM intact ENT: Moist mucous membranes Neck: Supple, no lymphadenopathy Respiratory: Lungs clear bilaterally, no distress Cardiovascular: Tachycardia, no murmurs, rubs, or gallops Abdominal: Soft, non-tender, non-distended, no peritoneal signs : Chaperoned exam reveals a small amount of blood at the vaginal os, external exam only performed MSK: No edema, no unilateral swelling, 5/5 strength Neurologic: Alert and oriented, moving all extremities, normal speech, no focal weakness, no cerebellar signs Skin: No rash Psych: Normal mood Result Diagram: 03/14/17 1005 03/14/17 1005 Results 24 hrs Laboratory Tests Test 03/14/17 10:05 White Blood Count 8.510^3/ul Red Blood Count 3.7910^6/ul Hemoglobin 10.1g/dl Hematocrit 32.6% Mean Corpuscular Volume 86.0fl Mean Corpuscular Hemoglobin 26.6pg Mean Corpuscular Hemoglobin Concent 31.0g/dl Red Cell Distribution Width 18.6% Platelet Count 70575^3/UL Mean Platelet Volume 10.8fl Neutrophils % 79.8% Lymphocytes % 8.6% Monocytes % 8.6% Eosinophils % 1.8% Basophils % 0.6% Nucleated Red Blood Cells % 0.0/100WBC Neutrophils # 6.810^3/ul Lymphocytes # 0.710^3/ul Monocytes # 0.710^3/ul Eosinophils # 0.210^3/ul Basophils # 0.110^3/ul Nucleated Red Blood Cells # 0.010^3/ul Prothrombin Time 12.4Sec Prothrombin Time Ratio 1.0 INR International Normalized Ratio 0.92 Activated Partial Thromboplast Time 26.9Sec Sodium Level 142mmol/L Potassium Level 3.9mmol/L Chloride Level 104mmol/L Carbon Dioxide Level 28mmol/L Anion Gap 14 Blood Urea Nitrogen 17mg/dl Creatinine 0.79mg/dl Glucose Level 118mg/dl Calcium Level 9.5mg/dl Total Bilirubin 0.0mg/dl Direct Bilirubin 0.00mg/dl Indirect Bilirubin 0.0mg/dl Aspartate Amino Transf (AST/SGOT) 20IU/L Alanine Aminotransferase (ALT/SGPT) 42IU/L Alkaline Phosphatase 120IU/L Troponin I < 0.012ng/ml Total Protein 7.0g/dl Albumin 3.5g/dl Globulin 3.50g/dl Albumin/Globulin Ratio 1.00 Current Medications Medications (Trade) Dose Ordered Sig/Jay Route PRN Reason Start Time Stop Time Status Last Admin Dose Admin Sodium Chloride (NS) 1,000 ml @ 1,000 mls/hr Q1H STAT IV 03/14/17 09:58 03/14/17 10:57 DC 03/14/17 10:22 Morphine Sulfate (morphine) 4 mg ONCE STAT IV 03/14/17 09:58 03/14/17 10:01 DC 03/14/17 10:20 Ondansetron HCl (Zofran Inj) 4 mg ONCE STAT IV 03/14/17 09:58 03/14/17 10:01 DC 03/14/17 10:20 IV Flush 10 ml 10 ml STK-MED ONCE .ROUTE 03/14/17 10:55 03/14/17 10:56 DC Sodium Chloride 100 ml @ ud STK-MED ONCE .ROUTE 03/14/17 10:55 03/14/17 10:56 DC Iohexol (Omnipaque) 100 ml @ ud STK-MED ONCE .ROUTE 03/14/17 10:55 03/14/17 10:56 DC Enoxaparin Sodium (Lovenox) 46 mg ONCE ONCE SC 03/14/17 13:00 03/14/17 13:01 DC Ondansetron HCl (Zofran Inj) 4 mg ER BRIDGE PRN IV NAUSEA AND/OR VOMITING 03/14/17 14:30 03/15/17 14:29 Acetaminophen (Tylenol Tab) 650 mg ER BRIDGE PRN PO MILD PAIN/FEVER 03/14/17 14:30 03/15/17 14:29 Procedures/MDM EKG, MONITORS, & DIAGNOSTIC IMAGING: EKG: I reviewed and interpreted a 12-lead EKG. Rhythm: Sinus tachycardia Ectopy: None Intervals: No abnormalities ST segments: No elevations or depressions T waves: No contiguous inversions Chest x-ray: I reviewed and interpreted a 1 view of the chest Mediastinum: No enlargement Cardiac silhouette: No cardiomegaly Airspace: Clear lung raya bilaterally without evidence of pneumothorax Bones: No evidence of fracture CTA chest abdomen pelvis IMPRESSION: Occlusive thrombus branch right pulmonary artery supplying the anterior basal segment with small infarct. Interval lysis of previously noted bilateral pulmonary emboli. Enlarging pelvic mass compatible with progression of known ovarian cancer. Small volume ascites. Persistent right hydroureter nephrosis with mild dilatation left intrarenal collecting system despite double-J ureteral stents. Post splenectomy. LAB INTERPRETATION: No leukocytosis, hemoglobin of 10.1, nonobstructive hepatobiliary pattern, negative troponin MEDICAL DECISION MAKING: The patient has metastatic ovarian CA. She presents with abdominal pain, vaginal bleeding, chest pain and tachycardia. Her clinical presentation is likely consistent with progression of disease process. However there is some concern for pulmonary embolism given her tachycardia and chest pain. ER COURSE: The patient was given pain control medications. The patient has diagnostic imaging that confirms pulmonary embolism. The patient should have been taking Lovenox but has been noncompliant over the past 2 weeks. I did discuss the risks, benefits, alternatives of anticoagulation especially in the setting of vaginal bleeding. This is likely secondary to her progression of disease. I believe that the risks to her life from her pulmonary embolism outweigh the risks to her life from the vaginal bleeding. Therefore I recommend Lovenox. The patient agrees. She has been given informed consent. Lovenox provided. The patient will be admitted for further management. I kept the patient and/or family informed of laboratory and diagnostic imaging results throughout the emergency room course. DISPOSITION PLAN: Telemetry admission CONSULTATION: Accepting care team and consultations: I discussed the current laboratory data, diagnostic imaging and emergency care provided. Admitting team: Dr Gonsalez Admitting team indication: Insurance directed Departure Diagnosis: Primary Impression: Acute pulmonary embolism Pulmonary embolism type: other Acute cor pulmonale presence: without acute cor pulmonale Qualified Code: I26.99 - Other acute pulmonary embolism without acute cor pulmonale Additional Impression: Primary cancer of ovary with widespread metastatic disease Laterality: unspecified laterality Qualified Code: C56.9 - Primary malignant neoplasm of ovary with widespread metastatic disease, unspecified laterality Condition: YULIYA Chapman MD Mar 14, 2017 13:58
[2017-03-14] MEDS ORDERED: ONDANSETRON 4 MG INJ IV PRN ×2 (14:30)
[2017-03-14] MEDS ORDERED: morphine 2 MG INJ IV PRN (14:30)
[2017-03-14] MEDS ORDERED: ACETAMINOPHEN 325 MG TAB PO PRN ×2 (14:30)
[2017-03-14] MEDS ORDERED: NACL 0.9% 3 ML SYG IV SCH (14:30)
[2017-03-14] MEDS ORDERED: HYDROCODONE/APAP (5/325) TAB PO PRN (14:30)
[2017-03-14 15:18] VITALS: TEMP 98.3
--- NOTE | 2017-03-14 15:26 | HP ---
Date/Time of Note Date/Time of Note DATE: 03/14/17 TIME: 15:04 Assessment/Plan VTE Prophylaxis VTE Prophylaxis Intervention: other Assessment/Plan Chief Complaint/Hosp Course 1. Acute respiratory distress secondary to acute PE Patient does have a history of bilateral PE which appear to have resolved Patient has acute right-sided PE, patient has not been taking her prescribed Lovenox Start Eliquis 10 mg p.o. twice daily 1 week then transition to 5 mg twice daily thereafter 2. History of metastatic ovarian cancer status post recent debulking surgery Once again son adamantly refused chemotherapy during recent hospitalization CT abdomen shows enlarging pelvic mass compatible with progression of known ovarian cancer Have consulted patients [employer]/onc for vaginal bleeding 3. Bilateral hydronephrosis secondary to a sec ovarian cancer status post bilateral stent placement CT abdomen shows persistent right hydroureter nephrosis with mild dilatation left intrarenal collecting system despite double-J ureteral stents 4. Chronic encephalopathy of unknown origin PPx: Eliquis Problems: HPI/ROS Admit Date/Time Admit Date/Time March 14, 2017 Hx of Present Illness Patient is a 56-year-old female with a history of metastatic ovarian cancer status post debulking surgery during recent prolonged hospitalization. Patient was just discharged 1 week prior, during hospitalization patient was noted to be encephalopathic and workup showed no organic cause. Patient's son who is spokesperson refused chemotherapy despite being advised that chemotherapy would be beneficial. Patient also was diagnosed with bilateral pulmonary embolism and was discharged with Lovenox. Patient returns now one week later planning of acute on chronic shortness of breath as well as vaginal bleeding. Patient states that she has not been taking her Lovenox and does not know any of her medications. Patient is a poor historian and is confused history is obtained from previous medical records. ROS Poor historian PMH/Family/Social Past Medical History 1. Metastatic Ovarian Cancer status post debulking surgery, patient's on refusing chemotherapy 2. Bilateral hydronephrosis right more than left, urinary retention, suspected of having stage IV ovarian cancer s/p Cystoscopy bilateral retrograde pyelograms and insertion of bilateral JJ stents 7 Spanish by 28 cm long on the right, 7 Spanish by 26 cm long on the left 3. Encephalopathy of unknown cause 4. Status post sepsis with bacteremia as well as pelvic abscess status post drainage. 5. Bilateral pulmonary emboli Past Surgical History Past Surgical Hx: other Social History Smoking Status: Never smoker Exam/Review of Systems Vital Signs Vitals Vital Signs Date Time Temp Pulse Resp B/P Pulse Ox O2 Delivery O2 Flow Rate FiO2 03/14/17 09:40 98.2 122 18 112/74 98 Exam Constitutional: alert, frail Psych: confusion Head: normocephalic Respiratory: clear to auscultation Cardiovascular: regular rate and rhythm Gastrointestinal: soft, No distended Musculoskeletal: nl extremities to inspection Labs Result Diagram: 03/14/17 1005 03/14/17 1005 Medications Medications Current Medications Ondansetron HCl (Zofran Inj) 4 mg Q6H PRN IV NAUSEA AND/OR VOMITING; Start 03/14/17 at 14:30 Acetaminophen (Tylenol Tab) 650 mg Q6H PRN PO PAIN LEVEL 1-3 OR FEVER; Start 03/14/17 at 14:30 Acetaminophen/ Hydrocodone Bitart ([place] (5/325)) 1 tab Q6H PRN PO MODERATE PAIN LEVEL 4-6; Start 03/14/17 at 14:30 Morphine Sulfate (morphine) 2 mg Q4H PRN IV SEVERE PAIN LEVEL 7-10; Start 03/14 at 14:30 Zolpidem Tartrate (Ambien) 5 mg QHS PRN PO SLEEP; Start 03/14/17 at 14:30; Status UNV Docusate Sodium (Colace) 100 mg Q12H PO ; Start 03/14/17 at 14:30; Status UNV Furosemide (Lasix) 40 mg DAILY@06 PO ; Start 03/15/17 at 06:00; Status UNV Lactobacillus Acidophilus/ Rhamnosus (Culturelle) 1 cap BID PO ; Start 03/14/17 at 21:00; Status UNV Magnesium Oxide (Mag-Ox 400) 400 mg BID PO ; Start 03/14/17 at 21:00; Status UNV Pantoprazole (Protonix Tab) 40 mg DAILY@06 PO ; Start 03/15/17 at 06:00 Potassium Chloride (Klor-Con 20) 20 meq DAILY PO ; Start 03/15/17 at 09:00 Quetiapine Fumarate (Seroquel) 12.5 mg DAILY PO ; Start 03/15/17 at 09:00; Status UNV Enoxaparin Sodium (Lovenox) 65 mg Q12 SC ; Start 03/14/17 at 21:00 NIHARIKA SUGGS Mar 14, 2017 15:15
[2017-03-14] MEDS ORDERED: CEFTRIAXONE 1 GM/50 ML (PMX) 50 ML IVPB SCH (16:00)
[2017-03-14] MEDS ORDERED: ZOLPIDEM 5 MG TAB PO PRN (16:00)
[2017-03-14] MEDS ORDERED: HYDROmorphONE 1 MG/ML SYG IV STA (20:05)
[2017-03-14 20:47] VITALS: PULSE 90
[2017-03-14 21:00] VITALS: BP 123/78; PULSE 85; RESP 20; Ht 160 cm; Wt 50.0 kg
[2017-03-14] MEDS ORDERED: ENOXAPARIN 80 MG/0.8 ML SYG SC SCH (21:00)
[2017-03-14] MEDS: MAGNESIUM OXIDE 400 MG TAB PO SCH (21:50)
[2017-03-14] MEDS: APIXABAN 5 MG TABLET PO SCH (21:51)
[2017-03-14] MEDS: DOCUSATE SODIUM 100 MG CAP PO SCH (21:55)
[2017-03-15] VITALS (12 sets, daily range): BP systolic 103–134; BP diastolic 59–78; PULSE 73–100; RESP 17–18
[2017-03-15] MEDS: LACTOBACILLUS RHAMNOSUS CAP PO SCH ×3 (01:41→20:40)
[2017-03-15] MEDS ORDERED: CEFTRIAXONE 1 GM/50 ML (PMX) 50 ML IVPB SCH (05:00)
[2017-03-15] MEDS ORDERED: FUROSEMIDE 40 MG TAB PO SCH (06:00)
[2017-03-15] MEDS ORDERED: PANTOPRAZOLE (EC) 40 MG TAB PO SCH (06:00)
[2017-03-15 07:21] LABS: BASOPHIL # 0.1 10^3/ul (0.0-0.1); BASOPHILS % 0.8 % (0.0-2.0); EOSINOPHILS # 0.2 10^3/ul (0.0-0.5); EOSINOPHILS % 2.3 % (0.0-7.0); HEMATOCRIT 29.9 % (37.0-47.0); HEMOGLOBIN 9.3 g/dl (12.0-16.0); LYMPHOCYTES # 0.8 10^3/ul (0.8-2.9); LYMPHOCYTES % 9.5 % (15.0-51.0); MEAN CORPUSCULAR HEMOGLOBIN 26.9 pg (29.0-33.0); MEAN CORPUSCULAR HGB CONC 31.1 g/dl (32.0-37.0); MEAN CORPUSCULAR VOLUME 86.4 fl (82.0-101.0); MEAN PLATELET VOLUME 11.3 fl (7.4-10.4); MONOCYTE # 0.8 10^3/ul (0.3-0.9); NEUTROPHIL # 6.5 10^3/ul (1.6-7.5); NEUTROPHILS % 77.8 % (39.0-77.0); PLATELET COUNT 644 10^3/UL (140-415); RED BLOOD COUNT 3.46 10^6/ul (4.20-5.40); RED CELL DISTRIBUTION WIDTH 19.4 % (11.5-14.5); WHITE BLOOD COUNT 8.3 10^3/ul (4.8-10.8)
[2017-03-15 07:39] LABS: CALCIUM 9.6 mg/dl (8.4-10.2); CREATININE 0.77 mg/dl (0.44-1.00); MAGNESIUM 1.9 mg/dl (1.7-2.5); PHOSPHORUS 4.1 mg/dl (2.5-4.9); POTASSIUM 3.9 mmol/L (3.5-5.1)
[2017-03-15] MEDS: APIXABAN 5 MG TABLET PO SCH ×2 (08:45→20:40)
[2017-03-15] MEDS: MAGNESIUM OXIDE 400 MG TAB PO SCH ×2 (08:46→20:40)
[2017-03-15] MEDS: DOCUSATE SODIUM 100 MG CAP PO SCH ×2 (08:46→20:40)
[2017-03-15] MEDS ORDERED: POTASSIUM CHLORIDE (SR) 20 MEQ TAB PO SCH (09:00)
[2017-03-15] MEDS ORDERED: QUETIAPINE 25 MG TAB PO SCH (09:00)
--- NOTE | 2017-03-15 16:11 | PDOCDIS ---
Discharge Instructions CONDITION Patient Condition: Good HOME CARE INSTRUCTIONS: Diet Instructions: Regular ACTIVITY: Activity Restrictions: No Restrictions FOLLOW UP/APPOINTMENTS Follow-up Plan F/U WITH YOUR PCP IN 1-2 WEEKS NIHARIKA SUGGS Mar 15, 2017 16:11
[2017-03-15] MEDS ORDERED: CIPR500T4 PO (16:13)
[2017-03-15] MEDS ORDERED: APIX5TAB PO (16:13)
--- NOTE | 2017-03-15 16:47 | CONS ---
Date/Time of Note Date/Time of Note DATE: 03/15/17 TIME: 16:47 Consultation Date/Type/Reason Admit Date/Time March 14, 2017 Date of Consultation: Mar 14, 2017 Type of Consultation: [facility] Reason for Consultation OVARIAN CANCER Referring Provider: RAUL EUCEDA MD Past Surgical History Past Surgical Hx: other Social History Smoking Status: Former smoker Exam/Review of Systems Vital Signs Vitals Vital Signs Date Time Temp Pulse Resp B/P Pulse Ox O2 Delivery O2 Flow Rate FiO2 03/15/17 16:29 98.0 78 18 112/62 98 03/15/17 08:00 Nasal Cannula 2.0 Intake and Output 03/14/17 03/14/17 03/15/17 15:00 23:00 07:00 Intake Total 500 ml Balance 500 ml Results Result Diagram: 03/15/17 0655 03/15/17 0655 Results 24 hrs Laboratory Tests Test 03/15/17 06:55 White Blood Count 8.3 Red Blood Count 3.46 L Hemoglobin 9.3 L Hematocrit 29.9 L Mean Corpuscular Volume 86.4 Mean Corpuscular Hemoglobin 26.9 L Mean Corpuscular Hemoglobin Concent 31.1 L Red Cell Distribution Width 19.4 H Platelet Count 644 H Mean Platelet Volume 11.3 H Neutrophils % 77.8 H Lymphocytes % 9.5 L Monocytes % 9.0 Eosinophils % 2.3 Basophils % 0.8 Nucleated Red Blood Cells % 0.0 Neutrophils # 6.5 Lymphocytes # 0.8 Monocytes # 0.8 Eosinophils # 0.2 Basophils # 0.1 Nucleated Red Blood Cells # 0.0 Sodium Level 141 Potassium Level 3.9 Chloride Level 103 Carbon Dioxide Level 30 Anion Gap 12 Blood Urea Nitrogen 16 Creatinine 0.77 Glucose Level 85 Calcium Level 9.6 Phosphorus Level 4.1 Magnesium Level 1.9 Medications Medications Current Medications Ondansetron HCl (Zofran Inj) 4 mg Q6H PRN IV NAUSEA AND/OR VOMITING; Start 03/14/17 at 14:30 Acetaminophen (Tylenol Tab) 650 mg Q6H PRN PO PAIN LEVEL 1-3 OR FEVER; Start 03/14/17 at 14:30 Acetaminophen/ Hydrocodone Bitart ([place] (5/325)) 1 tab Q6H PRN PO MODERATE PAIN LEVEL 4-6; Start 03/14/17 at 14:30 Morphine Sulfate (morphine) 2 mg Q4H PRN IV SEVERE PAIN LEVEL 7-10 Last administered on 03/14/17 21:47; Admin Dose 2 MG; Start 03/14/17 at 14:30 Zolpidem Tartrate (Ambien) 5 mg QHS PRN PO SLEEP; Start 03/14/17 at 16:00 Docusate Sodium (Colace) 100 mg Q12 PO Last administered on 03/15/17 08:46; Admin Dose 100 MG; Start 03/14/17 at 16:00 Furosemide (Lasix) 40 mg DAILY@06 PO ; Start 03/15/17 at 06:00 Lactobacillus Acidophilus/ Rhamnosus (Culturelle) 1 cap BID PO Last administered on 03/15/17 08:45; Admin Dose 1 CAP; Start 03/14/17 at 21:00 Magnesium Oxide (Mag-Ox 400) 400 mg BID PO Last administered on 03/15/17 08: 46; Admin Dose 400 MG; Start 03/14/17 at 21:00 Pantoprazole (Protonix Tab) 40 mg DAILY@06 PO Last administered on 03/15/17 05:52; Admin Dose 40 MG; Start 03/15/17 at 06:00 Potassium Chloride (Klor-Con 20) 20 meq DAILY PO Last administered on 08:46; Admin Dose 20 MEQ; Start 03/15/17 at 09:00 Quetiapine Fumarate (Seroquel) 12.5 mg DAILY PO Last administered on 08:47; Admin Dose 12.5 MG; Start 03/15/17 at 09:00 Apixaban (Eliquis) 10 mg BID PO Last administered on 03/15/17 08:45; Admin Dose 10 MG; Start 03/14/17 at 21:00; Stop 03/21/17 at 23:59 Apixaban 5 mg 5 mg BID PO ; Start 03/22/17 at 09:00 Ceftriaxone Sodium (Rocephin) 50 ml @ 100 mls/hr Q24H IVPB Last administered on 03/15/17 05:58; Admin Dose 100 MLS/HR; Start 03/15/17 at 05:00 RAMIREZ YBARRA MD Mar 15, 2017 16:47
--- NOTE | 2017-03-15 16:48 | CONS ---
Date/Time of Note Date/Time of Note DATE: 03/15/17 TIME: 16:47 Consultation Date/Type/Reason Admit Date/Time Mar 14, 2017 at 14:07 Initial Consult Date Type of Consultation: [facility] Referring Provider: RAUL EUCEDA MD Exam/Review of Systems Vital Signs Vitals Vital Signs Date Time Temp Pulse Resp B/P Pulse Ox O2 Delivery O2 Flow Rate FiO2 03/15/17 16:29 98.0 78 18 112/62 98 03/15/17 08:00 Nasal Cannula 2.0 Intake and Output 03/14/17 03/14/17 03/15/17 15:00 23:00 07:00 Intake Total 500 ml Balance 500 ml Results Result Diagram: 03/15/17 0655 03/15/17 0655 Results 24 hrs Laboratory Tests Test 03/15/17 06:55 White Blood Count 8.3 Red Blood Count 3.46 L Hemoglobin 9.3 L Hematocrit 29.9 L Mean Corpuscular Volume 86.4 Mean Corpuscular Hemoglobin 26.9 L Mean Corpuscular Hemoglobin Concent 31.1 L Red Cell Distribution Width 19.4 H Platelet Count 644 H Mean Platelet Volume 11.3 H Neutrophils % 77.8 H Lymphocytes % 9.5 L Monocytes % 9.0 Eosinophils % 2.3 Basophils % 0.8 Nucleated Red Blood Cells % 0.0 Neutrophils # 6.5 Lymphocytes # 0.8 Monocytes # 0.8 Eosinophils # 0.2 Basophils # 0.1 Nucleated Red Blood Cells # 0.0 Sodium Level 141 Potassium Level 3.9 Chloride Level 103 Carbon Dioxide Level 30 Anion Gap 12 Blood Urea Nitrogen 16 Creatinine 0.77 Glucose Level 85 Calcium Level 9.6 Phosphorus Level 4.1 Magnesium Level 1.9 Medications Medications Current Medications Ondansetron HCl (Zofran Inj) 4 mg Q6H PRN IV NAUSEA AND/OR VOMITING; Start 03/14/17 at 14:30 Acetaminophen (Tylenol Tab) 650 mg Q6H PRN PO PAIN LEVEL 1-3 OR FEVER; Start 03/14/17 at 14:30 Acetaminophen/ Hydrocodone Bitart ([place] (5/325)) 1 tab Q6H PRN PO MODERATE PAIN LEVEL 4-6; Start 03/14/17 at 14:30 Morphine Sulfate (morphine) 2 mg Q4H PRN IV SEVERE PAIN LEVEL 7-10 Last administered on 03/14/17 21:47; Admin Dose 2 MG; Start 03/14/17 at 14:30 Zolpidem Tartrate (Ambien) 5 mg QHS PRN PO SLEEP; Start 03/14/17 at 16:00 Docusate Sodium (Colace) 100 mg Q12 PO Last administered on 03/15/17 08:46; Admin Dose 100 MG; Start 03/14/17 at 16:00 Furosemide (Lasix) 40 mg DAILY@06 PO ; Start 03/15/17 at 06:00 Lactobacillus Acidophilus/ Rhamnosus (Culturelle) 1 cap BID PO Last administered on 03/15/17 08:45; Admin Dose 1 CAP; Start 03/14/17 at 21:00 Magnesium Oxide (Mag-Ox 400) 400 mg BID PO Last administered on 03/15/17 08: 46; Admin Dose 400 MG; Start 03/14/17 at 21:00 Pantoprazole (Protonix Tab) 40 mg DAILY@06 PO Last administered on 03/15/17 05:52; Admin Dose 40 MG; Start 03/15/17 at 06:00 Potassium Chloride (Klor-Con 20) 20 meq DAILY PO Last administered on 08:46; Admin Dose 20 MEQ; Start 03/15/17 at 09:00 Quetiapine Fumarate (Seroquel) 12.5 mg DAILY PO Last administered on 08:47; Admin Dose 12.5 MG; Start 03/15/17 at 09:00 Apixaban (Eliquis) 10 mg BID PO Last administered on 03/15/17 08:45; Admin Dose 10 MG; Start 03/14/17 at 21:00; Stop 03/21/17 at 23:59 Apixaban 5 mg 5 mg BID PO ; Start 03/22/17 at 09:00 Ceftriaxone Sodium (Rocephin) 50 ml @ 100 mls/hr Q24H IVPB Last administered on 03/15/17 05:58; Admin Dose 100 MLS/HR; Start 03/15/17 at 05:00 RAMIREZ YBARRA MD Mar 15, 2017 16:48
--- NOTE | 2017-03-15 19:08 | DS ---
Date/Time of Note Date/Time of Note DATE: 03/15/17 TIME: 18:59 Discharge Summary Admission/Discharge Info Admit Date/Time Mar 14, 2017 at 14:07 Discharge Date/Time March 15, 2017 Discharge Diagnosis 1. Acute respiratory distress secondary to acute PE Patient does have a history of bilateral PE which appear to have resolved Patient has acute right-sided PE, patient has not been taking her prescribed Lovenox, patient states that her insurance does not cover DC with Eliquis 10 mg p.o. twice daily 1 week then transition to 5 mg twice daily thereafter 2. History of metastatic ovarian cancer status post recent debulking surgery Previous hospitalization patient's son adamantly refused chemotherapy, have discussed chemotherapy with son and he states that he will decide, for now he wants to discharge patient home CT abdomen shows enlarging pelvic mass compatible with progression of known ovarian cancer 3. Bilateral hydronephrosis secondary to a sec ovarian cancer status post bilateral stent placement CT abdomen shows persistent right hydroureter nephrosis with mild dilatation left intrarenal collecting system despite double-J ureteral stents Urology evaluation appreciated, recommendation was to place a Cullen catheter post void and to leave Cullen in if patient has a postvoid residual of greater than 300 cc, patient's postvoid residual was less than this and hence Cullen was removed upon discharge 4. Chronic encephalopathy of unknown origin Patient Condition: Good Hx of Present Illness Hospital Course Patient is a 56-year-old female with a history of metastatic ovarian cancer status post debulking surgery during recent prolonged hospitalization. Patient was just discharged 1 week prior, during hospitalization patient was noted to be encephalopathic and workup showed no organic cause. Patient's son who is spokesperson refused chemotherapy despite being advised that chemotherapy would be beneficial. Patient also was diagnosed with bilateral pulmonary embolism and was discharged with Lovenox. Patient states that her insurance would not cover Lovenox and patient patient returns now one week later complaining of acute on chronic shortness of breath as well as vaginal bleeding. Patient was found to have an acute PE on the right side and patient was started on Eliquis, shortness of breath did improve. Patient was seen by urology and ultimately Cullen catheter was not required upon discharge as postvoid residual was less than 20 cc. Patient's son was spoken to about chemotherapy he states that he will consider it but wants patient to be discharged home. He was told about the need for Eliquis for the PE, he understood. On the day of discharge patient vitals, labs physical were stable patient had no acute complaints questions answered. Patient was discharged with a course of Cipro for empiric treatment of UTI as she does have a history of UTIs in the past. Home Meds Active Scripts Ciprofloxacin Hcl* (Ciprofloxacin Hcl*) 500 Mg Tablet, 500 MG PO BID for 5 Days , TAB Prov:IFEANYILUZ ELENAJavier 03/15/17 Apixaban* (Eliquis*) 5 Mg Tablet, 5 MG PO BID for 90 Days, TAB Prov:IFEANYI,[facility] 03/15/17 Apixaban* (Eliquis*) 5 Mg Tablet, 10 MG PO BID for 6 Days, TAB Prov:IFEANYI03/15/17 Pantoprazole* (Pantoprazole*) 40 Mg Tablet.dr, 40 MG PO DAILY@06 for 14 Days, # 28 TAB Prov:[facility]SEMARIEFORMERLY [facility] 03/06/17 Magnesium Oxide* (Magnesium Oxide*) 400 Mg Tablet, 400 MG PO BID for 14 Days, # 28 TAB Prov:[facility]03/06/17 Potassium Chloride* (Klor-Con*) 20 Meq Tabsr, 20 MEQ PO DAILY for 7 Days, #7 TAB.SA Prov:[facility]/06/17 Furosemide* (Furosemide*) 40 Mg Tablet, 40 MG PO DAILY@06 for 7 Days, #7 TAB Prov:[facility]03/06/17 Lactobacillus Rhamnosus GG (Culturelle) 1 Each Capsule, 1 CAP PO BID for 14 Days , #28 CAP Prov:[facility]03/06/17 Docusate Sodium (Dok) 100 Mg Capsule, 100 MG PO Q12H for 30 Days, #60 CAP 2 Refills Prov:[facility]03/06/17 Quetiapine Fumarate* (Quetiapine Fumarate*) 25 Mg Tablet, 12.5 MG PO DAILY for 30 Days, #15 TAB 2 Refills Prov:ROSEMARIELILIANA 03/06/17 Discontinued Scripts Enoxaparin Sodium (Enoxaparin Sodium) 80 Mg/0.8 Ml Syringe, 65 MG SC Q12H for 30 Days, #60 VIAL 2 Refills Prov:LILIANA [facility]ST[facility] 03/06/17 Follow-up Plan F/U WITH YOUR PCP IN 1-2 WEEKS Primary Care Provider James Chaparro Time spent on discharge: > 30 minutes NIHARIKA SUGGS Mar 15, 2017 19:08
[2017-03-22] MEDS ORDERED: APIXABAN 5 MG TABLET PO SCH (09:00)
== END 2017-03-15 22:45 | disposition home or self-care (01) | DRG 175 ==
LOC: E/R 09:37 → MS4 14:07
PROVIDERS: ADMIT Internal Medicine; ATTEND Internal Medicine
DX: I26.99 Other pulmonary embolism without acute cor pulmonale (principal); G93.40 Encephalopathy, unspecified; C79.9 Secondary malignant neoplasm of unspecified site; C56.9 Malignant neoplasm of unspecified ovary; N13.30 Unspecified hydronephrosis; R06.03 Acute respiratory distress
CPT/HCPCS: 36415; 71010; 71275; 75635; 80048; 80053; 83735; 84100; 84484; 85025; 85610; 85730; 86850; 86900; 86901; 93005; 96372; 96374; 96375; J0696; J1170; J1650; J2270; J2405; J7030; Q9967

== ENCOUNTER 2017-04-13 08:47 | Emergency (ER) | END 2017-04-13 11:29 | disposition home or self-care (01) ==

== ENCOUNTER 2017-05-22 10:37 | Emergency (ER) | END 2017-05-22 17:26 | disposition left against medical advice (07) ==

== ENCOUNTER 2017-05-23 15:56 | Observation (INO) | END 2017-05-24 13:50 | disposition home or self-care (01) ==